=== PATIENT | female | born 1945 | race Caucasian/White ===

== ENCOUNTER → 2017-09-28 09:25 | Outpatient (CLI) | payer MEDICARE, OTHER, SELFPAY ==
[2017-09-28 10:32] LABS: Absolute Neutrophil Count 2.7 X10^3/uL (2.0-7.7); Basophil# 0.02 X10^3/uL; Basophil% 0.4 % (0-1); Differential Indicated SCAN CRITERIA MET; Eosinophil# 0.14 X10^3/uL; Eosinophils% 2.8 % (0-5); Hematocrit 25.8 % (37-47); Hemoglobin 7.3 g/dl (12.0-15.0); Lymphocyte % 35.8 % (19-41); Mean Corp Hgb Conc 28.3 g/gl (32-36); Mean Corpuscular Hgb 17.1 pg (27.0-32.0); Mean Corpuscular Volume 60.6 fL (81-99); Monocyte# 0.37 X10^3/uL; Monocyte% 7.4 % (0-10); Neutrophil % 53.6 % (47-70); POSITIVE COUNT NO; POSITIVE DIFFERENTIAL NO; POSITIVE MORPHOLOGY YES; Platelet Count 308 K/mm3 (150-450); RBC Distribution Width CV 20.2 % (11.6-14.6); RBC Distribution Width SD 44.2 fl (35.1-43.9); Red Blood Count 4.26 M/mm3 (4.2-5.4)
[2017-09-28 10:40] LABS: Creatinine, Urine (random) < 13.00 mg/dL (NO RANGE EST.); Microalbumin,Random Urine 6.2 mg/L (NO RANGE EST.)
[2017-09-28 10:59] LABS: AST(SGOT) 18 U/L (15-37); Alanine Aminotransfer ALT/SGPT 30 U/L (13-56); Albumin, Serum 3.7 g/dL (3.2-5.0); Alkaline Phosphatase 77 U/L (45-117); Anion Gap 7 (5-15); BUN 10 mg/dL (7-18); BUN/Creat Ratio 20.3 RATIO (10-20); Bilirubin, Direct 0.05 mg/dL (0.00-0.30); Calcium,Total 8.8 mg/dL (8.5-10.1); Chloride 105 mmol/L (98-107); Creatinine, Serum 0.49 mg/dL (0.55-1.02); EST Glomerular Filtration Rate 131 mL/min (>60); Est Glom Filt Rate - Afr Amer 158 mL/min (>60); Globulin 3.7 g/dL (2.2-4.2); Glucose 114 mg/dL (74-106); Potassium 3.5 mmol/L (3.5-5.1); Protein, Total 7.4 g/dL (6.4-8.2); Sodium Level 140 mmol/L (136-145)
== END ==
PROVIDERS: Family Provider Family Medicine; PCP Family Medicine; Visit Provider Family Medicine
DX: E11.9 Type 2 diabetes mellitus without complications (principal); R53.83 Other fatigue
CPT/HCPCS: 36415; 80048; 80076; 82043; 82570; 85025

== ENCOUNTER → 2017-09-29 08:20 | Outpatient (CLI) | payer MEDICARE, OTHER, SELFPAY ==
[2017-09-29 11:58] LABS: Absolute Lymphocyte Count 1.91 X10^3/ul (0.83-4.51); Absolute Neutrophil Count 2.8 X10^3/uL (2.0-7.7); Basophil# 0.02 X10^3/uL; Basophil% 0.4 % (0-1); Eosinophil# 0.15 X10^3/uL; Eosinophils% 2.9 % (0-5); Hematocrit 26.2 % (37-47); Hemoglobin 7.4 g/dl (12.0-15.0); Lymphocyte # 1.91 X10^3/ul (4.0); Lymphocyte % 36.6 % (19-41); Mean Corp Hgb Conc 28.2 g/gl (32-36); Mean Corpuscular Hgb 17.1 pg (27.0-32.0); Mean Corpuscular Volume 60.5 fL (81-99); Mean Platelet Vol. 9.3 fl (6.2-12.0); Monocyte# 0.37 X10^3/uL; Monocyte% 7.1 % (0-10); Neutrophil # 2.76 X10^3/uL (2.7-7.7); Neutrophil % 52.8 % (47-70); Platelet Count 317 K/mm3 (150-450); RBC Distribution Width CV 20.1 % (11.6-14.6); RBC Distribution Width SD 43.8 fl (35.1-43.9); Red Blood Count 4.33 M/mm3 (4.2-5.4); White Blood Count 5.2 K/mm3 (4.4-11.0)
[2017-09-29 12:00] LABS: Differential Indicated SCAN CRITERIA MET; POSITIVE COUNT NO; POSITIVE DIFFERENTIAL NO; POSITIVE MORPHOLOGY YES
== END ==
PROVIDERS: Family Provider Family Medicine; PCP Family Medicine; Visit Provider Family Medicine
DX: D64.9 Anemia, unspecified (principal)
CPT/HCPCS: 36415; 85025

== ENCOUNTER → 2017-10-02 08:03 | Outpatient (CLI) | payer MEDICARE, OTHER, SELFPAY ==
[2017-10-02 10:30] LABS: Absolute Lymphocyte Count 1.58 X10^3/ul (0.83-4.51); Basophil# 0.01 X10^3/uL; Basophil% 0.2 % (0-1); Eosinophils% 2.5 % (0-5); Hematocrit 26.5 % (37-47); Hemoglobin 7.5 g/dl (12.0-15.0); Lymphocyte # 1.58 X10^3/ul (4.0); Lymphocyte % 38.7 % (19-41); Mean Corp Hgb Conc 28.3 g/gl (32-36); Mean Corpuscular Hgb 17.2 pg (27.0-32.0); Mean Corpuscular Volume 60.9 fL (81-99); Mean Platelet Vol. 9.3 fl (6.2-12.0); Monocyte# 0.41 X10^3/uL; Neutrophil # 1.98 X10^3/uL (2.7-7.7); Neutrophil % 48.6 % (47-70); Platelet Count 292 K/mm3 (150-450); RBC Distribution Width CV 20.5 % (11.6-14.6); RBC Distribution Width SD 44.6 fl (35.1-43.9); Red Blood Count 4.35 M/mm3 (4.2-5.4); White Blood Count 4.1 K/mm3 (4.4-11.0)
[2017-10-02 10:31] LABS: Differential Indicated SCAN CRITERIA MET; POSITIVE COUNT NO; POSITIVE DIFFERENTIAL NO; POSITIVE MORPHOLOGY YES
[2017-10-02 10:45] LABS: Ferritin 4 ng/mL (8-252); Iron 16 ug/dL (50-170); Iron Binding Capacity,Total 563 ug/dL (250-450)
[2017-10-02 11:06] LABS: Anisocytosis 2+; Hypochromasia 3+; Microcytosis 2+; Ovalocyte RARE; Platelet Estimate ADEQUATE (ADEQ); Schistocytes RARE
== END ==
LOC: MFPLAB 08:04 → LAB 13:52
PROVIDERS: Family Provider Family Medicine; PCP Family Medicine; Visit Provider Family Medicine
DX: D64.9 Anemia, unspecified (principal)
CPT/HCPCS: 36415; 82728; 83540; 83550; 85025; 86850; 86900; 86920; 86922

== ENCOUNTER 2017-10-03 08:43 | Outpatient (CLI) | payer MEDICARE, OTHER, SELFPAY ==
[2017-10-03] VITALS (9 sets, daily range): BP systolic 118–147; BP diastolic 53–80; PULSE 60–82; RESP 16–18; TEMP 36.5–37.4; O2SAT 94–100
[2017-10-03] MEDS: 0.9% NaCl Peripheral Flush Adult/Peds IV ×2 (10:05→13:31)
[2017-10-03] MEDS: Furosemide 20 MG/2 ML VIAL IV (13:35)
[2017-10-03 18:32] LABS: Hematocrit 33.1 % (37-47); Hemoglobin 9.9 g/dl (12.0-15.0)
== END 2017-10-03 18:17 | disposition home or self-care (01) ==
LOC: MEDOUTP 08:44 → PCU 08:45
PROVIDERS: Family Provider Family Medicine; PCP Family Medicine; Visit Provider Family Medicine
DX: D64.9 Anemia, unspecified (principal)
CPT/HCPCS: 36415; 36430; 85014; 85018; 86644; 86850; 86900; 86920; 86922; J7050; P9016; A4216; J1940

== ENCOUNTER → 2017-10-13 13:37 | Outpatient (CLI) | payer MEDICARE, OTHER, SELFPAY ==
--- NOTE | 2017-10-13 13:40 | RAD_ITS ---
STUDY: X-RAY - LEFT HAND REASON FOR EXAM: Female, 72 years old. Numbness. TECHNIQUE: Three view(s) of the hand. COMPARISON: None. FINDINGS: Bones: There is generalized osteopenia. Joints: There are changes of osteoarthrosis involving the radial carpal row, first carpometacarpal joint, metacarpal phalangeal and interphalangeal joints. Soft tissues: The soft tissues are unremarkable. Foreign body: None RAD/Hand Min 3 Views IMPRESSION: Osteopenia with osteoarthritic changes as described. Electronically Signed: Mingo Rao MD at 14:57 EST , Service support ,
--- NOTE | 2017-10-13 13:40 | RAD_ITS ---
STUDY: X-RAY - RIGHT HAND REASON FOR EXAM: Numbness. TECHNIQUE: 3 view(s) of the hand. COMPARISON: None. FINDINGS: Normal radiocarpal articulation. Normal distal radioulnar joint. Normal visualized carpal bones. Normal carpal articulations Normal carpometacarpal articulation of the thumb. Normal second through fifth carpometacarpal joints. Normal metacarpi. Normal metacarpophalangeal joint of the thumb. Normal interphalangeal joint of the thumb. Normal proximal and distal phalanges of the thumb. Normal metacarpophalangeal joints of the second through fifth fingers. Normal proximal and distal interphalangeal joints of the second through fifth fingers. Normal phalanges of the second through fifth fingers. There is a small capsular calcification at the proximal ulnar aspect of the fourth proximal interphalangeal joint and a small capsular calcification at the distal radial aspect of the third metacarpophalangeal joint. There is a small capsular calcification at the palmar ulnar aspect of the first metacarpophalangeal joint. RAD/Hand Min 3 Views IMPRESSION: Small capsular calcifications of the fourth proximal interphalangeal, and first and third metacarpophalangeal joints. Otherwise, unremarkable x-ray examination of the right hand. Electronically Signed: Sriram Funes MD at 14:06 EST Tel , Service support ,
== END ==
PROVIDERS: Family Provider Family Medicine; PCP Family Medicine; Visit Provider Orthopaedic Surgery
DX: M79.641 Pain in right hand (principal); M79.642 Pain in left hand
CPT/HCPCS: 73130

== ENCOUNTER → 2017-10-19 11:25 | Outpatient (CLI) | payer MEDICARE, OTHER, SELFPAY ==
[2017-10-19 12:31] LABS: Absolute Lymphocyte Count 1.82 X10^3/ul (0.83-4.51); Absolute Neutrophil Count 3.7 X10^3/uL (2.0-7.7); Basophil# 0.01 X10^3/uL; Basophil% 0.2 % (0-1); Eosinophil# 0.09 X10^3/uL; Eosinophils% 1.5 % (0-5); Hematocrit 37.7 % (37-47); Hemoglobin 11.3 g/dl (12.0-15.0); Lymphocyte # 1.82 X10^3/ul (4.0); Lymphocyte % 30.2 % (19-41); Mean Corpuscular Hgb 20.9 pg (27.0-32.0); Mean Corpuscular Volume 69.8 fL (81-99); Mean Platelet Vol. 9.5 fl (6.2-12.0); Monocyte# 0.37 X10^3/uL; Monocyte% 6.1 % (0-10); Neutrophil # 3.74 X10^3/uL (2.7-7.7); Platelet Count 265 K/mm3 (150-450)
[2017-10-19 12:37] LABS: POSITIVE COUNT NO; POSITIVE DIFFERENTIAL NO; POSITIVE MORPHOLOGY YES
[2017-10-19 12:38] LABS: Differential Indicated SCAN CRITERIA MET
[2017-10-19 12:50] LABS: Anisocytosis 2+; Microcytosis 2+; Platelet Estimate ADEQUATE (ADEQ)
[2017-10-19 12:51] LABS: Hypochromasia 1+; Target Cells 2+
[2017-10-19 12:52] LABS: Ovalocyte RARE
== END ==
PROVIDERS: Family Provider Family Medicine; PCP Family Medicine; Visit Provider Family Medicine
DX: D64.9 Anemia, unspecified (principal)
CPT/HCPCS: 36415; 85025

== ENCOUNTER 2017-11-10 06:35 | Day surgery (SDC) | payer MEDICARE, OTHER, SELFPAY ==
[2017-11-10] VITALS (7 sets, daily range): BP systolic 91–130; BP diastolic 57–73; PULSE 54–69; RESP 16; TEMP 36.1–36.7; O2SAT 100; BMI 31.0
[2017-11-10 07:05] LABS: Bedside Glucose 113 mg/dL (70-110)
--- NOTE | 2017-11-10 07:57 | EGD_PTH ---
PATIENT: KARIE PLASCENCIA LOC: EN U#:[id number] AGE/SX: 72/F ROOM: RE11/10/[address]: Dr. Von Velez MD : 1945 BED: DIS: 11/10/2017 SPEC #: [id number] RECD: 11/10/17 13:30 STATUS: OSMAN DEANDRE #: [id number] RODRÍGUEZ: 11/10/17 07:[address]: Von Velez DEPT: SURGICAL PATHOLOGY RECD BY: Eric Lazaro ENTERED: 11/10/17 13:48 SP TYPE: EGD BIOPSY OT DR: Dr. 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 No evidence of dysplasia. Junctional tissue with mild chronic inflammation. AM:angelica 11/11/17 COMMENT Alcian blue/PAS stain with matched control supports the above diagnosis. MICROSCOPIC DESCRIPTION Slides are reviewed. GROSS DESCRIPTION Received in fixative is one container labeled with the patient's name and designated GE junction. The specimen consists of two irregular fragments of light hong soft tissue that in aggregate measure 0.8 x 0.3 x 0.1 cm. The specimen is totally submitted in one cassette. / SJ:angelica 11/10/17 TC:3 CPT: 01809, 26145
--- NOTE | 2017-11-10 08:32 | PCM.OPRPT ---
Problem List (1) Anemia Status: Acute Qualifiers: Anemia type: iron deficiency Iron deficiency anemia type: unspecified iron deficiency Qualified Code(s): D50.9 - Iron deficiency anemia, unspecified Report of Operation Date of Procedure: 11/10/17 Pre-Operative Diagnosis: Iron deficiency anemia Post-Operative Diagnosis: 1. Normal EGD. 2. Normal colonoscopy Surgery/Procedure Performed:: 1. EGD with biopsy. 2. Colonoscopy Specimen's removed: 1. GE junction biopsy Description of Procedure: The major risks and benefits associated with the procedure were explained to the patient in detail. The patient verbalized understanding and agreement with the same. The patient was then placed in the left lateral decubitus position. IV sedation was started by anesthesia. The endoscope was then advanced under direct visualization over the tongue, into the esophagus. The GE junction was reached and distal to the GE junction her anastomosis from her gastric bypass was identified. Both lumens were intubated and appeared normal. The anastomosis appeared normal. The scope was withdrawn to the GE junction. There was some irregularity to the GE junction so it was biopsied with cold forceps. Hemostasis was good. Careful examination of the remainder of the esophagus was normal. The scope was then withdrawn from the patient. The patient was then turned for the colonoscopy portion of the procedure. A digital rectal exam was performed. This examination was within normal limits. A well-lubricated colonoscope was then inserted into the rectum and advanced under direct visualization to the level of the cecum. The bowel prep was good. The cecum was identified by both visual and anatomic landmarks. A photograph was taken of the end of the cecum. The scope was then fully withdrawn while examining the color, texture, anatomy and integrity of the mucosa from the cecum to the anal canal. The findings were consistent with normal colonic mucosa. Over 6 minutes were taken to examine the colonic mucosa. Upon reaching the rectum the scope was retroflexed to examine the distal rectal vault. The scope was then straightened and was completely retrieved upon exiting the anal canal and the procedure was terminated. The patient was then transferred to the recovery room in stable condition. Recommendations for follow up: 10 years if patient in good health
== END 2017-11-10 09:49 | disposition home or self-care (01) ==
LOC: EN 06:36 → ACINP 06:39
PROVIDERS: Family Provider Family Medicine; PCP Family Medicine; Visit Provider Surgery
PROC: 0DJD8ZZ Inspection of Lower Intestinal Tract, Via Natural or Artificial Opening Endoscopic (ICD-10-PCS; CPT 45378; principal; 2017-11-10 07:55)
DX: D50.9 Iron deficiency anemia, unspecified (principal); Z98.84 Bariatric surgery status; E78.5 Hyperlipidemia, unspecified; E11.9 Type 2 diabetes mellitus without complications; K22.70 Barrett's esophagus without dysplasia; Z79.899 Other long term (current) drug therapy; Z79.84 Long term (current) use of oral hypoglycemic drugs; E07.9 Disorder of thyroid, unspecified
CPT/HCPCS: 43239; 45378; 82962; 88305; 88313; J7120

== ENCOUNTER → 2018-03-25 07:52 | Outpatient (CLI) | payer MEDICARE, OTHER, SELFPAY ==
[2018-03-25 10:18] LABS: Hematocrit 39.2 % (37-47); Hemoglobin 12.9 g/dl (12.0-15.0); Mean Corp Hgb Conc 32.9 g/gl (32-36); Mean Corpuscular Volume 88.1 fL (81-99); Mean Platelet Vol. 10.1 fl (6.2-12.0); Platelet Count 202 K/mm3 (150-450); RBC Distribution Width CV 13.7 % (11.6-14.6); RBC Distribution Width SD 43.8 fl (35.1-43.9); Red Blood Count 4.45 M/mm3 (4.2-5.4); White Blood Count 4.4 K/mm3 (4.4-11.0)
[2018-03-25 10:25] LABS: Scan Indicated on CBC? Y/N NO
[2018-03-25 10:27] LABS: Hemoglobin A1c 6.2 % (4.2-6.3)
[2018-03-25 10:32] LABS: Microalbumin:Creatinine Ratio 16.3 mg/g CRE (<30 mg/g CRE)
[2018-03-25 10:38] LABS: AST(SGOT) 19 U/L (15-37); Alanine Aminotransfer ALT/SGPT 29 U/L (13-56); Albumin, Serum 3.6 g/dL (3.2-5.0); Alkaline Phosphatase 66 U/L (45-117); Anion Gap 9 (5-15); BUN 11 mg/dL (7-18); BUN/Creat Ratio 18.3 RATIO (10-20); Calcium,Total 8.7 mg/dL (8.5-10.1); Chloride 106 mmol/L (98-107); Cholesterol 254 mg/dL (200); EST Glomerular Filtration Rate 104 mL/min (>60); Est Glom Filt Rate - Afr Amer 126 mL/min (>60); Globulin 3.6 g/dL (2.2-4.2); Glucose 131 mg/dL (74-106); High Density Lipoprotein 70 mg/dL; Potassium 4.1 mmol/L (3.5-5.1); Protein, Total 7.2 g/dL (6.4-8.2); Sodium Level 142 mmol/L (136-145); Thyroid Stim Hormone (TSH) 2.41 uIU/mL (0.358-3.74); Triglycerides 121 mg/dL; Very Low Density Lipoprotein 24 mg/dL (5-40)
== END ==
PROVIDERS: Family Provider Family Medicine; PCP Family Medicine; Visit Provider Family Medicine
DX: D64.9 Anemia, unspecified (principal); E11.9 Type 2 diabetes mellitus without complications; E78.5 Hyperlipidemia, unspecified; E03.9 Hypothyroidism, unspecified
CPT/HCPCS: 36415; 80053; 80061; 82043; 82570; 83036; 84443; 85027

== ENCOUNTER 2018-11-30 07:27 | Day surgery (SDC) | payer MEDICARE, OTHER, SELFPAY ==
[2017-11-10 06:51] VITALS: BMI 31.0
[2018-11-30 08:14] VITALS: BP 124/78; PULSE 65; RESP 16; TEMP 36.8; O2SAT 98; BMI 31.1
[2018-11-30 08:31] LABS: Bedside Glucose 123 mg/dL (70-110)
--- NOTE | 2018-11-30 09:00 | EGD_PTH ---
PATIENT: KARIE PLASCENCIA LOC: EN U#:[id number] AGE/SX: 73/F ROOM: RE11/30/[address]: Dr. Von Velez MD : 1945 BED: DIS: 11/30/2018 SPEC #: [id number] RECD: 11/30/18 11:37 STATUS: OSMAN REModesta #: [id number] RODRÍGUEZ: 11/30/18 09:[address]: Von Velez DEPT: SURGICAL PATHOLOGY RECD BY: Eric Lazaro ENTERED: 11/30/18 12:34 SP TYPE: EGD BIOPSY OT DR: Dr. Cachorro Whitney MD Tissues: Gastric mucous membrane Procedures: Special Stain Group II Surgery Specimen Level IV Alcian Blue/PAS (control) HEADER OPERATION: EGD (MAC) PRE-OP DIAGNOSIS: Diehl's esophagus without dysplasia TISSUE SUBMITTED: GE junction biopsy MICROSCOPIC DIAGNOSIS GE junction, biopsy: Fragments of gastroesophageal mucosa with chronic inflammation. Intestinal metaplasia (goblet cell metaplasia) is not identified. See comment. SURJIT:angelica 12/01/18 COMMENT Alcian blue/PAS stain with matched control is used in the evaluation of the specimen. MICROSCOPIC DESCRIPTION Slides are reviewed. GROSS DESCRIPTION Received in fixative is one container labeled with the patient's name and designated GE junction biopsy. The specimen consists of multiple irregular fragments of light hong soft tissue that in aggregate measure 0.5 x 0.4 x 0.1 cm. The specimen is totally submitted in one cassette. / SURJIT:angelica 11/30/18 TC:3 CPT: 50390, 18358
--- NOTE | 2018-11-30 09:17 | OP.ENDO_ITS ---
11/30/2018 Cachorro Whitney MD [address] [id number] Re : Upper GI endoscopy procedure for Julia Rivera Dear Dr. Whitney This procedure was performed on Friday, November 30, 2018. My impressions and recommendations are as follows: Impressions : - Normal esophagus. - No specimens collected. Recommendations : - Resume previous diet. - Discharge patient to home. - Repeat upper endoscopy in 3 years for surveillance. - Continue present medications. My findings are described in the full procedure note, which is enclosed. If I can be of further assistance, please feel free to contact me at Doctor phone number(s): , Work: . Sincerely, Von Velez MD 11/30/2018 9:17:18 AM This report has been signed electronically.
[2018-11-30 09:18] VITALS: BP 112/65; BP 124/78; PULSE 63; RESP 16; TEMP 36.2; O2SAT 96
[2018-11-30 09:20] VITALS: BP 112/84; BP 124/78; PULSE 58; RESP 14; O2SAT 96
[2018-11-30 09:26] VITALS: BP 109/70; BP 124/78; PULSE 67; RESP 14; O2SAT 98
[2018-11-30 09:39] VITALS: BP 116/65; BP 124/78; PULSE 53; RESP 18; TEMP 36.1; O2SAT 97
[2018-11-30 10:00] VITALS: BP 124/78
== END 2018-11-30 10:11 | disposition home or self-care (01) ==
LOC: EN 07:29 → AC 07:30
PROVIDERS: Family Provider Family Medicine; PCP Family Medicine; Referring Provider Surgery; Visit Provider Surgery
PROC: 0DJ08ZZ Inspection of Upper Intestinal Tract, Via Natural or Artificial Opening Endoscopic (ICD-10-PCS; CPT 43235; principal; 2018-11-30 08:55)
DX: K22.70 Barrett's esophagus without dysplasia (principal); E07.9 Disorder of thyroid, unspecified; E11.9 Type 2 diabetes mellitus without complications; E78.5 Hyperlipidemia, unspecified; Z79.899 Other long term (current) drug therapy; Z79.84 Long term (current) use of oral hypoglycemic drugs; D64.9 Anemia, unspecified; Z98.84 Bariatric surgery status
CPT/HCPCS: 43239; 82962; 88305; 88313; J7120

== ENCOUNTER → 2018-12-15 | Outpatient (CLI) | payer MEDICARE, OTHER, SELFPAY ==
[2018-11-30 08:14] VITALS: BMI 31.1
--- NOTE | 2018-12-15 13:52 | NEURO ---
NCS and/or EMG Patient Report Ordering Doctor: Last Mcdonald DATE OF SERVICE: 12/15/18 Julia Rivera presents for elective diagnostic testing of the right lower limb. She reports numbness and weakness in the right foot since August. She denies any injury. Electrodiagnostic findings: Right peroneal motor nerve demonstrates normal distal latency with reduced amplitude and reduced conduction velocity. No drop in conduction is noted across the fibular head. Normal tibial motor response. F waves are within normal limits. H reflex borderline prolonged bilaterally. Sensory responses are normal. Needle EMG testing shows no evidence of denervation with normal motor unit action potentials. Electrodiagnostic impression: This is an abnormal study in the right lower limb. 1. 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 There is no singificant drop in conduction across the fibular head. The patient may benefit from a right ankle-foot orthosis. 2. There is no electrodiagnostic evidence for lumbosacral radiculopathy. If there are any further questions, please do not hesitate to contact me.
== END | disposition home or self-care (01) ==
LOC: PSN 12:09
PROVIDERS: Family Provider Family Medicine; PCP Family Medicine; Referring Provider Nurse Practitioner Family; Visit Provider Nurse Practitioner Family
DX: M21.371 Foot drop, right foot (principal); R20.0 Anesthesia of skin
CPT/HCPCS: 95886; 95911

== ENCOUNTER → 2018-12-30 | Outpatient (CLI) | payer MEDICARE, OTHER, SELFPAY ==
[2018-11-30 08:14] VITALS: BMI 31.1
--- NOTE | 2018-12-30 14:01 | BI_ITS ---
MAMMOGRAPHY - BILATERAL SCREENING REASON FOR EXAM: Female, 73 years old. Routine annual screening examination. PERTINENT HISTORY: Non-contributory. TECHNIQUE: Digital bilateral breast jad (3D mammographic acquisition) in the CC and MLO projections. 2-D mediolateral oblique (MLO) and craniocaudad (CC) views of both breasts were obtained. CAD: Full Field Digital Mammography with Computer Added Detection was performed. COMPARISON: Comparison is made with prior study dated July 29, 2016 and May 15, 2015. FINDINGS: Breast Composition: There are scattered areas of fibroglandular density. There are no dominant masses or suspicious calcifications. Stable small bilateral axillary lymph nodes. No other significant abnormalities are identified. There has been no significant change since the prior study. BI/SCREENING MAMM (CAD), BILAT IMPRESSION: Stable bilateral screening mammogram. Yearly follow-up mammogram recommended. (A) ASSESSMENT CATEGORY: BIRADS Category 2: Benign. A letter regarding these results will be sent to the patient by the facility within 30 days. Approximately 10% of breast cancers are not detected by mammography. A normal mammogram should not delay biopsy of a clinically suspicious abnormality. [id number] Electronically Signed: Pillo Diaz, at 15:35 EDT , Service support ,
--- NOTE | 2018-12-30 14:23 | BD_ITS ---
STUDY: DUAL ENERGY X-RAY ABSORPTIOMETRY / DXA REASON FOR EXAM: Female, 73 years old. The patient is postmenopausal. Loss of height. TECHNIQUE: Bone Mineral Density (BMD) measurements of lumbar spine and bilateral hips were obtained. COMPARISON: Comparison is made with prior study dated July 29, 2016. FINDINGS: Lumbar Spine (L1-L4): g/cm2 (1.250) / T-score (0.4) / Z-score (2.2) Findings are suggestive of normal bone density with a low fracture risk. Left Femur Total: g/cm2 (1.015) / T-score (0.1) / Z-score (1.8) Left Femoral Neck: g/cm2 (0.822) / T-score (-1.6) / Z-score (0.4) Right Femur Total: g/cm2 (1.030) / T-score (0.2) / Z-score (1.9) Right Femoral Neck: g/cm2 (0.837) / T-score (-1.4) / Z-score (0.5) The T-Scores on the most recent prior examination were: Lumbar Spine (L1-L4): There has been improvement of bone density since the previous examination. Left Femur Total: which represents a worsening of 2%. Right Femur Total: which represents a worsening of 2.2%. BD/Dexa Bone Density Study IMPRESSION: The patient is considered osteopenic as outlined below according to World Paramjit Organization (WHO) criteria with a moderate fracture risk. There has been worsening of bone density since the previous examination. Reference Information: The T-score is the number of standard deviations above or below the standard which is normal for young adults at their peak bone mineral density. The World Health Organization (WHO) interprets the T-scores as follows: Above -1 Normal bone density Between -1 and -2.5 Osteopenia Equal to / or below -2.5 Osteoporosis As a practical clinical guideline, osteopenia may be graded as follows: Mild -1 through -1.5 Moderate -1.6 through -2.0 Severe -2.1 through -2.4 The Z-score is the number of standard deviations above or below age-matched controls. A Z-score of less than -1.5 would be considered abnormal. References: 1. NIH Osteoporosis and Related Bone Diseases http://www.osteo.org 2. International Society for Clinical Densitometry http://www.iscd.org 3. National Osteoporosis Foundation http://www.nof.org Electronically Signed: Pillo Diaz, at 14:54 EDT , Service support ,
== END | disposition home or self-care (01) ==
LOC: OPBD 13:57
PROVIDERS: Family Provider Family Medicine; PCP Family Medicine; Referring Provider Obstetrics & Gynecology; Visit Provider Obstetrics & Gynecology
DX: Z12.31 Encounter for screening mammogram for malignant neoplasm of breast (principal); Z13.820 Encounter for screening for osteoporosis; Z78.0 Asymptomatic menopausal state
CPT/HCPCS: 77063; 77067; 77080

== ENCOUNTER → 2019-01-04 | Outpatient (CLI) | payer MEDICARE, OTHER, SELFPAY ==
[2019-01-04 10:42] LABS: Hemoglobin A1c 6.8 % (4.2-6.3)
[2019-01-04 11:11] LABS: Anion Gap 6 (5-15); BUN 9 mg/dL (7-18); BUN/Creat Ratio 14.2 RATIO (10-20); Chloride 105 mmol/L (98-107); Cholesterol 217 mg/dL (200); Creatinine, Serum 0.63 mg/dL (0.55-1.02); EST Glomerular Filtration Rate 97 mL/min (>60); Est Glom Filt Rate - Afr Amer 118 mL/min (>60); Glucose 119 mg/dL (74-106); High Density Lipoprotein 86 mg/dL; Potassium 3.8 mmol/L (3.5-5.1); Sodium Level 138 mmol/L (136-145); Thyroid Stim Hormone (TSH) 2.22 uIU/mL (0.358-3.74); Triglycerides 110 mg/dL; Very Low Density Lipoprotein 22 mg/dL (5-40)
== END | disposition home or self-care (01) ==
LOC: MFPLAB 08:33
PROVIDERS: Family Provider Family Medicine; PCP Family Medicine; Visit Provider Family Medicine
DX: E11.9 Type 2 diabetes mellitus without complications (principal); E03.9 Hypothyroidism, unspecified; E78.5 Hyperlipidemia, unspecified
CPT/HCPCS: 36415; 80048; 80061; 83036; 84443

== ENCOUNTER 2019-02-16 08:36 | Day surgery (SDC) | payer MEDICARE, OTHER, SELFPAY ==
[2019-01-20 08:59] VITALS: BMI 31.1
--- NOTE | 2019-01-20 09:30 | HP_ITS ---
I have re-examined the patient. There are no clinical changes since date of exam. Intake Vital Signs 01/20/19 Body Mass Index (BMI) 31.1 Intake Visit Reasons: BILATERAL HANDS Allergies No Known Allergies Allergy (Verified 11/25/18 09:40) Medications calcium carbonate 500 mg calcium (1,250 mg) tablet 500 mg PO DAILY tab 10/13/17 [History Confirmed 01/20/19] folic acid 0.8 mg capsule 800 mcg PO QDAY 10/13/17 [History Confirmed 01/20/19] glimepiride 1 mg tablet 1 mg PO QAM 10/13/17 [History Confirmed 01/20/19] levothyroxine 75 mcg capsule 75 mcg PO DAILY 10/13/17 [History Confirmed 01/20/19] metformin 1,000 mg tablet 1,000 mg PO BID 10/13/17 [History Confirmed 01/20/19] multivitamin tablet 1 tab PO QAM 10/13/17 [History Confirmed 01/20/19] magnesium oxide 400 mg (241.3 mg magnesium) tablet 400 mg PO DAILY tab 10/16/17 [History Confirmed 01/20/19] rosuvastatin 5 mg tablet 5 mg PO DAILY 01/20/19 [History Confirmed 01/20/19] PFSH Medical History Anemia (Acute) Carpal tunnel syndrome (Acute) Thyroid disease (Acute) Fatigue (Acute) Dysuria (Acute) Hyperlipemia (Acute) Diabetes (Acute) Foot drop, right (Acute) Surgical History H/O gastric bypass (Acute) Family History Mother Uterine cancer Social History Smoking Status: Never smoker second hand exposure: No alcohol intake: never substance use type: does not use caffeine: No what type of physical activity do you participate in: walking frequency: 3-4 times per week seatbelt use: always HPI BILATERAL HANDS: Surgical H&P: Yes Details: Parts of this documentation were recorded by a scribe, this documentation accurately reflects the service provided and the decisions made by me, Qian Genao, 01/20/19 0340. KARIE PLASCENCIA is a 73 year old F here today for BL wrist has hx of carpal tunnel syndrome. Patient has had about 4 injections of her BL wrists with the last injection being 11/25/18. Patient states the injection are usually effective for about 3-5 months but the last injection only last a month and her pain is back along with numbness and tingling. Patient states the burning is worse at night. Has tried night bracing in the past which was not effective. Patient states her right hand is the worst. Would like to discuss her surgical options this day. She is seeing a neurologist for drop foot later today. ROS Const Reports system reviewed and no additional complaints, except as docu Eyes Reports system reviewed and no additional complaints, except as docu ENT Reports system reviewed and no additional complaints, except as docu Card Reports system reviewed and no additional complaints, except as docu Resp Reports system reviewed and no additional complaints, except as docu GI Reports system reviewed and no additional complaints, except as docu Musc Reports as per HPI Skin/Breast Reports system reviewed and no additional complaints, except as docu Neuro Yes system reviewed and no additional complaints, except as docu Psych Reports system reviewed and no additional complaints, except as docu Endo Reports system reviewed and no additional complaints, except as docu Jasson/Lymph Reports system reviewed and no additional complaints, except as docu Aller/Immun Reports system reviewed and no additional complaints, except as docu Ortho Exam Right Wrist/Hand Right Wrist: Yes Durken's Test Motor: EPL: 5, FDP-2: 4, 1st Dorsal Interosseous: 5, APB: 4 Sensation: Radial: I, Ulnar: I, Median: D Left Wrist/Hand Left Wrist: Yes Durken's Test WRIST: bilateral thenar atrophy Assessment & Plan Problems 1. Bilateral carpal tunnel syndrome G56.03 Plan Explained having less relief with injections but diagnostically they are confirming the carpal tunnel syndrome. Explained that the goal of surgery is to stop the progression. Risks, benefits and alternatives of surgery reviewed including but no limited to risk of incisional hypersensitivity, pillar pain and continued symptomology, nerve or artery damage, finger and wrist stiffness. Post op restrictions reviewed. Follow up post op or sooner if pain, swelling, numbness or associated symptoms, or concerns develop. All questions answered. Patient in agreement of plan. Coding Level of Care Code Off vis,est,level 4 Diagnoses Bilateral carpal tunnel syndrome G56.03 01/20/19 0930 <Electronically signed by Qian recinos DO> Date _ Qian Genao DO
[2019-02-16 08:57] VITALS: BP 125/68; PULSE 72; RESP 16; TEMP 36.7; O2SAT 99; BMI 31.2
[2019-02-16 09:21] LABS: Bedside Glucose 137 mg/dL (70-110)
[2019-02-16] MEDS: Cefazolin 2 GM in 0.9% Normal Saline 100 ML IV (12:35)
[2019-02-16] MEDS: Triamcinolone Acetonide 40 MG/ML Vial (12:36)
[2019-02-16] MEDS: Ropivacaine 0.5% 30 ML Vial (12:36)
[2019-02-16] MEDS: Mupirocin Ointment 22gm Tube 1 APPLIC (12:59)
--- NOTE | 2019-02-16 13:18 | DCINST_ITS ---
Discharge Diet: No Restrictions - keep dressing intact, follow up in 2 weeks and will remove dressing and stitches at that time, call with concerns, use hand as tolerated Discharge Activity: May Not Drive May shower in (days): 1 Ice area for (Minutes): 20 - Every hour while awake. Weight Bearing Status: Weight bearing as tolerated Keep extremity elevated above heart level: Operative Extremity Call your doctor if your incision/area has: Continuous Slow Oozing, Sudden Increased Bleeding, Increased Pain/ Swelling, Increased Redness, Foul Smelling Discharge Call your doctor if you observe: Fever of 101 or Higher, Coldness, Increased Pain, Numbness or Tingling, Change in Color, Calf discomfort Allergies/Adverse Reactions: Allergies No Known Allergies Allergy (Verified 02/09/19 09:45) Medications to take at Discharge calcium carbonate 500 mg calcium (1,250 mg) tablet 500 mg PO DAILY tab 10/13/17 folic acid 0.8 mg capsule 800 mcg PO QDAY 10/13/17 glimepiride 1 mg tablet 0.5 mg PO BID 10/13/17 levothyroxine 75 mcg capsule 75 mcg PO DAILY 10/13/17 metformin 1,000 mg tablet 1,000 mg PO BID 10/13/17 multivitamin tablet 1 tab PO QAM 10/13/17 magnesium oxide 400 mg (241.3 mg magnesium) tablet 400 mg PO DAILY tab 10/16/17 rosuvastatin 5 mg tablet 5 mg PO QHS 01/20/19 Primary Care Physician: Cachorro Whitney MD [Primary Care Provider] - Test Results: Test results from this visit will be discussed in further detail at your follow- up appointment, if applicable. Please Follow Up With: Qian Genao, DO - [phone]
--- NOTE | 2019-02-16 13:19 | PCM.OPRPT ---
Report of Operation Date of Procedure: 02/16/19 Pre-Operative Diagnosis: bilateral carpal tunnel syndrome Post-Operative Diagnosis: same Surgery/Procedure Performed:: right carpal tunnel release, left carpal tunnel injection Type of Anesthesia:: Irving Calloway Anesthesiologist: Adam Peter Estimated Blood Loss (mL): none Fluids Replaced: 300cc lr Description of Procedure: Preoperative note Patient is a 73 year old patient with nerve conduction study confirming carpal tunnel syndrome. Patient failed conservative treatment for her carpal tunnel elected proceed with right carpal tunnel release. Risks benefits and alternatives surgery discussed with patient. Risks including but not limited to blood loss, blood clot, infection, neurovascular injury, failure procedure, loss of life and loss of limb. Patient is aware like proceed with right carpal tunnel release. Operative note Patient seen and examined preoperative holding area. right hand was marked. History and physical and consent reviewed. Patient was brought to the operating room placed supine on the operating table. Sign in, anesthesia, antibiotics were administered. right upper extremity was prepped and draped after Irving block was initiated. All bony prominences well-padded SCDs placed on bilateral lower extremities. We marked out our incisions for our carpal tunnel release at the intersection of Shashank's line in the fourth ray flexed. We extended about a centimeter and a half. Timeout was performed. We then checked ensure that the Irving block was working with pickups which it was not so we performed a local block of 10cc 1% lidocaine. We then used a 15 blade to make a skin incision. We then dissected down tenotomy syllable of the transverse carpal ligament. We then used a new 15 blade cut through the transverse carpal ligament down to the level of the median nerve. We then further released the median nerve the combination of the 15 blade and tenotomies. The nerve was grayish in color and adherent to the transverse carpal ligament volarly. We released the transverse carpal ligament distally to the fat pad and then proximally under standard technique. We then palpated to ensure that we released all of the transverse carpal ligament which we did. We irrigated the incision with copious amounts of sterile saline. All bleeders were coagulated. The incision was closed with interrupted 4-0 nylon stitches. Tourniquet was deflated for total working time of 15 minutes. We then injected the left carpal tunnel with 1 cc of ropivacaine and 1/2 cc Kenalog. Sterile conditions. Patient tired procedure well no comp occasions. patient tolerated procedure well there were no complications. Patient transferred to recovery room in stable condition. Postoperative note Hospital pharmacy has prescription Leave dressing clean dry and intact Follow-up in 2 weeks Call with concerns This note was generated with [employer]) dictation software. It may contain incorrect words, spelling, and punctuation that were not noted in checking the note before signing
[2019-02-16 13:26] VITALS: BP 102/75; BP 125/68; PULSE 80; RESP 16; TEMP 36.7; O2SAT 99
[2019-02-16 13:30] VITALS: BP 125/68; BP 125/81; PULSE 79; RESP 16; O2SAT 99
[2019-02-16 13:35] VITALS: BP 120/72; BP 125/68; PULSE 81; RESP 16; O2SAT 100
[2019-02-16 13:40] VITALS: BP 115/72; BP 125/68; PULSE 74; RESP 16; TEMP 36.2; O2SAT 100
[2019-02-16 14:04] VITALS: BP 125/68
--- NOTE | 2019-02-22 17:34 | PCM.HP.BLA ---
History and Physical Date of Admission: 02/16/19 [facility] Medical Records Department [address] [place] [address] History and Physical 01/20/1931 MR#: [id number] Acct: [id number] Name: KARIE PLASCENCIA Rep #: [id number] : 1945 73 From: Qian Genao DO PCP: Cachorro Whitney MD Status: [facility] Location: [address] [address] I have re-examined the patient. There are no clinical changes since date of exam. Intake Vital Signs 01/20/19 Body Mass Index (BMI) 31.1 Intake Visit Reasons: BILATERAL HANDS Allergies No Known Allergies Allergy (Verified 11/25/18 09:40) Medications calcium carbonate 500 mg calcium (1,250 mg) tablet 500 mg PO DAILY tab 10/13/17 [History Confirmed 01/20/19] folic acid 0.8 mg capsule 800 mcg PO QDAY 10/13/17 [History Confirmed 01/20/19] glimepiride 1 mg tablet 1 mg PO QAM 10/13/17 [History Confirmed 01/20/19] levothyroxine 75 mcg capsule 75 mcg PO DAILY 10/13/17 [History Confirmed 01/20/19] metformin 1,000 mg tablet 1,000 mg PO BID 10/13/17 [History Confirmed 01/20/19] multivitamin tablet 1 tab PO QAM 10/13/17 [History Confirmed 01/20/19] magnesium oxide 400 mg (241.3 mg magnesium) tablet 400 mg PO DAILY tab 10/16/17 [History Confirmed 01/20/19] rosuvastatin 5 mg tablet 5 mg PO DAILY 01/20/19 [History Confirmed 01/20/19] PFSH Medical History Anemia (Acute) Carpal tunnel syndrome (Acute) Thyroid disease (Acute) Fatigue (Acute) Dysuria (Acute) Hyperlipemia (Acute) Diabetes (Acute) 1
== END 2019-02-16 14:08 | disposition home or self-care (01) ==
LOC: SDC 08:36 → AC 08:37
PROVIDERS: Family Provider Family Medicine; PCP Family Medicine; Referring Provider Orthopaedic Surgery; Visit Provider Orthopaedic Surgery
PROC: (CPT 64721; principal; 2019-02-16 10:15)
DX: G56.03 Carpal tunnel syndrome, bilateral upper limbs (principal); Z79.84 Long term (current) use of oral hypoglycemic drugs; E78.5 Hyperlipidemia, unspecified; E07.9 Disorder of thyroid, unspecified; E11.9 Type 2 diabetes mellitus without complications; Z79.899 Other long term (current) drug therapy; M21.371 Foot drop, right foot
CPT/HCPCS: 20526; 64721; 82962; J7120; J2405

== ENCOUNTER 2019-03-08 09:45 | Outpatient (RCR) | payer MEDICARE, OTHER, SELFPAY ==
[2019-01-20 08:59] VITALS: BMI 31.1
[2019-02-28 09:55] VITALS: BMI 31.2
--- NOTE | 2019-03-08 10:54 | HP.PTEVAL_ITS ---
Patient's Visit Information KARIE PLASCENCIA is a 73 year old F referred to Physical Therapy by Cachorro Whitney MD with a diagnosis of Right Foot Drop. Date of Evaluation: 03/08/19 Physical Therapist: Ann Oneill DPT - Visit Plan Plan: Hold- will establish POC and goals after patient meets with Manager Marketing t omorrow and decides on Orthosis - Subjective Findings: Has developed foot drop on the right side- was placing more weight on the left and has increased the pain in her back. She is now working towards putting weight on both legs and the pain has gone away. Foot drop started in - insidous onset. Has been to neurologist- goes to the foot doctor tomorrow and is on the waiting list for the nerve MD at [facility]. Has had a nerve conduction test- which showed that her problem is in the ankle. Has numbness in the big toe. She is now wearing a sleeve on the big toe and tries to wear her shoes at all times. Balance is better when she wears her shoes. Has had a fall getting out of the bathtub but now she has figured out how to get in/out and is putting a rail in. Sees Dr. Jin tomorrow. No pain is associated with the foot drop. Has no problems standing still just when she is moving. Has not notived loss of balance in a particular direction. PMHx: DM Meds: metformin, glumide. Was working out at [place] but its been awhile since she has been here. She is vey active at home. - Objective Posture: good throughout session sitting and standing. Gait: foot drop on the right- compensates with increased hip flexion. Stairs: asc/desc 8 recip with 1 HR- with ascent pt compensates clearance with increased hip flexion. Desc good control. Balance: SLS:10 sec then LOB, Tandem walking: x5 steps without LOB, gait with head turns: stays within boundaries. ROM: WFL in all motions except right DF: passive: WFL however unable to perform active ROM. Strength: Hip: 5/5, Knee: 5/5, Ankle: 5/5 except DF: no initiation of movement observed or palpated. Palpation: not tender - Rehabilitation Potential Physical Therapy Diagnosis: Patient presents with hypomobility- she has insidious onset of foot drop on the right. She has good strength in bilateral LE with the exception of the right DF's. Rehabilitation Potential: Fair - Anticipated Interventions Thank you for the opportunity to evaluate your patient. For Medicare and Medicare HMO plans, please review the plan of care and approve it. It will need to be FAXED BACK to us at [phone] for Medicare purposes. For Medicare only, by signing this I certify the plan of care. Please let me know if there are questions or concerns regarding this plan of care. Physician Signature: Date:
== END 2019-03-08 19:00 | disposition home or self-care (01) ==
LOC: PT 09:45
PROVIDERS: Family Provider Family Medicine; PCP Family Medicine; Referring Provider Family Medicine; Visit Provider Family Medicine
DX: M21.371 Foot drop, right foot (principal)
CPT/HCPCS: 97161

== ENCOUNTER → 2019-09-20 12:59 | Outpatient (CLI) | payer MEDICARE, OTHER, SELFPAY ==
[2019-09-20 12:47] VITALS: BMI 31.2
--- NOTE | 2019-09-20 13:01 | RAD_ITS ---
STUDY: X-RAY - LEFT WRIST REASON FOR EXAM: Wrist pain, carpal tunnel syndrome. TECHNIQUE: 3 view(s) of the wrist were obtained. COMPARISON: Radiographs of the left hand 10/13/2017. FINDINGS: There is osteopenia. Normal visualized distal radius and ulna. Normal radiocarpal articulation. Normal distal radioulnar articulation. Normal carpal bones. Normal carpal articulations. Normal carpometacarpal articulation of the thumb. Normal second through fifth carpometacarpal articulations. Normal visualized metacarpal bones. There is vascular calcification. RAD/Wrist min 3 Views IMPRESSION: Osteopenia and vascular calcification. Otherwise, unremarkable x-ray examination of the left wrist. Electronically Signed: Sriram Funes MD at 10:16 EST Tel , Service support ,
== END ==
PROVIDERS: PCP Family Medicine; Referring Provider Orthopaedic Surgery; Visit Provider Orthopaedic Surgery
DX: R20.0 Anesthesia of skin (principal); R20.2 Paresthesia of skin
CPT/HCPCS: 73110

== ENCOUNTER → 2019-10-10 08:57 | Outpatient (CLI) | payer MEDICARE, OTHER, SELFPAY ==
[2019-09-20 12:47] VITALS: BMI 31.2
[2019-10-10 10:41] LABS: Anion Gap 5 (5-15); BUN 13 mg/dL (7-18); BUN/Creat Ratio 18.9 RATIO (10-20); Calcium,Total 9.3 mg/dL (8.5-10.1); Chloride 105 mmol/L (98-107); Creatinine, Serum 0.69 mg/dL (0.55-1.02); EST Glomerular Filtration Rate 89 mL/min (>60); Est Glom Filt Rate - Afr Amer 107 mL/min (>60); Free T3 2.7 pg/mL (2.18-3.98); Glucose 162 mg/dL (74-106); Potassium 3.6 mmol/L (3.5-5.1); Sodium Level 139 mmol/L (136-145); T4 Total, Thyroxin 10.5 ug/dL (4.8-13.9); Thyroid Stim Hormone (TSH) 2.12 uIU/mL (0.358-3.74)
== END ==
PROVIDERS: PCP Family Medicine; Referring Provider Family Medicine; Visit Provider Family Medicine
DX: E11.9 Type 2 diabetes mellitus without complications (principal); E03.9 Hypothyroidism, unspecified
CPT/HCPCS: 36415; 80048; 84436; 84443; 84481

== ENCOUNTER 2019-10-28 07:31 | Day surgery (SDC) | payer MEDICARE, OTHER, SELFPAY ==
[2019-10-18 09:05] VITALS: BMI 31.2
--- NOTE | 2019-10-18 09:45 | HP_ITS ---
I have re-examined the patient. There are no clinical changes since date of exam. Intake Vital Signs 10/18/19 BMI 31.2 Intake Visit Reasons: left arm /hand Accompanied by: Self Is patient in pain?: No Allergies No Known Allergies Allergy (Verified 02/09/19 09:45) Medications calcium carbonate 500 mg calcium (1,250 mg) tablet 500 mg PO DAILY tab 10/13/17 [History Confirmed 10/18/19] folic acid 0.8 mg capsule 800 mcg PO QDAY 10/13/17 [History Confirmed 10/18/19] glimepiride 1 mg tablet 0.5 mg PO BID 10/13/17 [History Confirmed 10/18/19] levothyroxine 75 mcg capsule 75 mcg PO DAILY 10/13/17 [History Confirmed 10/18/19] metformin 1,000 mg tablet 1,000 mg PO BID 10/13/17 [History Confirmed 10/18/19] multivitamin 1 tab PO QAM 10/13/17 [History Confirmed 10/18/19] magnesium oxide 400 mg (241.3 mg magnesium) tablet 400 mg PO DAILY tab 10/16/17 [History Confirmed 10/18/19] rosuvastatin 5 mg tablet 5 mg PO QHS 01/20/19 [History Confirmed 10/18/19] [facility] Medical History (Updated 02/16/19 @ 13:[address] Qian Genao DO) Anemia (Acute) Carpal tunnel syndrome (Acute) Thyroid disease (Acute) Fatigue (Acute) Dysuria (Acute) Hyperlipemia (Acute) Diabetes (Acute) Foot drop, right (Acute) Surgical History H/O gastric bypass (Acute) Social History (Updated 10/18/19 @ 09:[address] Qian Genao DO) Smoking Status: Never smoker second hand exposure: No alcohol intake: never substance use type: does not use caffeine: No what type of physical activity do you participate in: walking frequency: 3-4 times per week seatbelt use: always HPI left arm /hand: Surgical H&P: Yes Details: Parts of this documentation were recorded by a scribe, this documentation accurately reflects the service provided and the decisions made by me, Dr. Qian Genao DO 10/18/19 0851. KARIE PLASCENCIA is a 74 year old F here today for left hand. F/U after having EMG completed of left upper extremity. Patient has had carpal tunnel injection of her left wrist last injection was 01/2019. Patient is here to discuss the results and discus her surgical options. She has numbness and tingling and of all of her fingers. Ortho Exam Left Wrist/Hand Left Wrist: Yes Durken's Test and Yes Thenar Atrophy No rales rhonchi wheezing, no abdominal pain, no audible bruits Assessment & Plan Problems 1. Carpal tunnel syndrome of left wrist G56.02 Plan Personally reviewed the EMG and explained that she has moderate carpal tunnel and her options are injection or release. Explained that the goal of surgery is to stop the progression. Reviewed the pre-operative plans with the patient. Risks and benefits of the procedure were fully explained, including but not limited to infection, neurovascular injury, continued pain, arthritis, stiffness, need for further surgery, re-injury, DVT, PE, general risks of anesthesia, and loss of limb or life. The patient understands all the risks and does wish to proceed with written consent. Follow up post op or sooner if pain, swelling, numbness or associated symptoms, or concerns develop. All questions answered. Patient in agreement of plan. Coding Level of Care Code Off vis,est,level 4 Diagnoses Carpal tunnel syndrome of left wrist G56.02 ??Laterality: left 10/18/19 0946 <Electronically signed by Qian tavarez DO> Date _ Qian Genao DO
[2019-10-28] VITALS (7 sets, daily range): BP systolic 116–124; BP diastolic 63–74; PULSE 60–70; RESP 16; TEMP 36.3–36.8; O2SAT 96–99; BMI 31.8
[2019-10-28] MEDS: Lactated Ringers 1,000 ML 100 ML IV (07:59)
[2019-10-28 08:35] LABS: Bedside Glucose 162 mg/dL (70-110)
--- NOTE | 2019-10-28 09:49 | OP.PCM_ITS ---
Report of Operation Date of Procedure: 10/28/19 Pre-Operative Diagnosis: left carpal tunnel syndrome Post-Operative Diagnosis: Same Surgery/Procedure Performed:: Left carpal tunnel release Type of Anesthesia:: Irving Calloway Anesthesiologist: Yuri Mistry Estimated Blood Loss (mL): min Fluids Replaced: 500ml lr Description of Procedure: Preoperative note Patient is a { 74yr old female } patient with nerve conduction study confirming carpal tunnel syndrome. Patient failed conservative treatment for her carpal tunnel elected proceed with left carpal tunnel release. Risks benefits and alternatives surgery discussed with patient. Risks including but not limited to blood loss, blood clot, infection, neurovascular injury, failure procedure, loss of life and loss of limb. Patient is aware like proceed with left carpal tunnel release. Operative note Patient seen and examined preoperative holding area. Left hand was marked. History and physical and consent reviewed. Patient was brought to the operating room placed supine on the operating table. Sign in, anesthesia, antibiotics were administered. Left upper extremity was prepped and draped after Limestone block was initiated. All bony prominences well-padded SCDs placed on bilateral lower extremities. We marked out our incisions for our carpal tunnel release at the intersection of Shashank's line in the fourth ray flexed. We extended about a centimeter and a half. Timeout was performed. We then checked ensure that the Irving block was working with pickups which it was. We then used a 15 blade to make a skin incision. We then dissected down tenotomy syllable of the transverse carpal ligament. We then used a new 15 blade cut through the transverse carpal ligament down to the level of the median nerve. We then further released the median nerve the combination of the 15 blade and tenotomies. The nerve was grayish in color and adherent to the transverse carpal ligament volarly. We released the transverse carpal ligament distally to the fat pad and then proximally under standard technique. We then palpated to ensure that we released all of the transverse carpal ligament which we did. We irrigated the incision with copious amounts of sterile saline. All bleeders were coagulated. The incision was closed with interrupted 4-0 nylon stitches. Tourniquet was deflated for total working time of 12 minutes. Patient tolerated procedure well there were no complications. Patient transferred to recovery room in stable condition. Postoperative note Hospital pharmacy has prescription Leave dressing clean dry and intact Follow-up in 2 weeks Call with concerns This note was generated with [employer] software. It may contain incorrect words, spelling, and punctuation that were not noted in checking the note before signing.
--- NOTE | 2019-10-28 09:49 | DCINST_ITS ---
Discharge Diet: No Restrictions - Leave dressing on until seen in postop clinic in 10-14 days for suture removal, keep dressing clean, dry, intact; change dressing if gets wet/dirty, call with concerns Discharge Activity: May Not Drive May shower in (days): 1 Ice area for (Minutes): 20 - Every hour while awake. Weight Bearing Status: Weight bearing as tolerated Keep extremity elevated above heart level: Operative Extremity Call your doctor if your incision/area has: Continuous Slow Oozing, Sudden Increased Bleeding, Increased Pain/ Swelling, Increased Redness, Foul Smelling Discharge Call your doctor if you observe: Fever of 101 or Higher, Coldness, Increased Pain, Numbness or Tingling, Change in Color, Calf discomfort Allergies/Adverse Reactions: Allergies No Known Allergies Allergy (Verified 10/28/19 07:45) Medications to take at Discharge calcium carbonate 500 mg calcium (1,250 mg) tablet 500 mg PO DAILY tab 10/13/17 folic acid 0.8 mg capsule 800 mcg PO QDAY 10/13/17 glimepiride 1 mg tablet 0.5 mg PO BID 10/13/17 levothyroxine 75 mcg capsule 75 mcg PO DAILY 10/13/17 metformin 1,000 mg tablet 1,000 mg PO BID 10/13/17 multivitamin 1 tab PO QAM 10/13/17 magnesium oxide 400 mg (241.3 mg magnesium) tablet 400 mg PO DAILY tab 10/16/17 rosuvastatin 5 mg tablet 5 mg PO QODAY 01/20/19 Aspirin [Aspir-Low] 81 mg PO DAILY 10/24/19 Primary Care Physician: Cachorro Whitney MD [Primary Care Provider] - Test Results: Test results from this visit will be discussed in further detail at your follow- up appointment, if applicable. Please Follow Up With: Qian Genao, DO - [phone]
[2019-10-28] MEDS: Mupirocin Ointment 22gm Tube 1 APPLIC (09:57)
[2019-10-28] MEDS: Cefazolin 2 GM in 0.9% Normal Saline 100 ML IV (10:09)
== END 2019-10-28 11:51 | disposition home or self-care (01) ==
LOC: SDC 07:32 → AC 07:34
PROVIDERS: PCP Family Medicine; Referring Provider Orthopaedic Surgery; Visit Provider Orthopaedic Surgery
PROC: (CPT 64721; principal; 2019-10-28 09:15)
DX: G56.02 Carpal tunnel syndrome, left upper limb (principal); E11.9 Type 2 diabetes mellitus without complications; E78.5 Hyperlipidemia, unspecified; E07.9 Disorder of thyroid, unspecified; Z78.0 Asymptomatic menopausal state; Z79.84 Long term (current) use of oral hypoglycemic drugs; Z79.82 Long term (current) use of aspirin; Z79.899 Other long term (current) drug therapy; Z86.2 Personal history of diseases of the blood and blood-forming organs and certain disorders involving the immune mechanism; Z98.84 Bariatric surgery status
CPT/HCPCS: 01810; 64721; 82962; J7120

== ENCOUNTER → 2020-04-09 08:49 | Outpatient (CLI) | payer MEDICARE, OTHER, SELFPAY ==
[2019-11-10 12:31] VITALS: BMI 31.8
[2020-04-09 10:19] LABS: Anion Gap 6 (5-15); BUN 9 mg/dL (7-18); BUN/Creat Ratio 15.2 RATIO (10-20); Calcium,Total 8.7 mg/dL (8.5-10.1); Chloride 104 mmol/L (98-107); Creatinine, Serum 0.59 mg/dL (0.55-1.02); EST Glomerular Filtration Rate 105 mL/min (>60); Est Glom Filt Rate - Afr Amer 126 mL/min (>60); Glucose 142 mg/dL (74-106); Sodium Level 140 mmol/L (136-145); Thyroid Stim Hormone (TSH) 1.36 uIU/mL (0.358-3.74)
[2020-04-09 10:24] LABS: Hemoglobin A1c 7.2 % (3.8-5.6)
[2020-04-09 10:47] LABS: Microalbumin,Random Urine < 5.0 mg/L (NO RANGE EST.)
== END ==
PROVIDERS: PCP Family Medicine; Referring Provider Family Medicine; Visit Provider Family Medicine
DX: E11.9 Type 2 diabetes mellitus without complications (principal); E03.9 Hypothyroidism, unspecified
CPT/HCPCS: 36415; 80048; 82043; 82570; 83036; 84443

== ENCOUNTER → 2020-05-01 07:25 | Outpatient (CLI) | payer MEDICARE, OTHER, SELFPAY ==
[2019-11-10 12:31] VITALS: BMI 31.8
--- NOTE | 2020-05-01 07:34 | BI_ITS ---
MAMMOGRAPHY - BILATERAL SCREENING REASON FOR EXAM: Female, 75 years old. Routine annual screening examination. PERTINENT HISTORY: Non-contributory. TECHNIQUE: Digital bilateral breast brittney (3D mammographic acquisition) in the CC and MLO projections. 2-D mediolateral oblique (MLO) and craniocaudad (CC) views of both breasts were obtained. CAD: Full Field Digital Mammography with Computer Added Detection was performed. COMPARISON: Comparison is made with prior study dated 12/30/2018 and 07/29/2016. FINDINGS: Breast Composition: There are scattered areas of fibroglandular density. There are no dominant masses or suspicious calcifications. No other significant abnormalities are identified. There has been no significant change since the prior study. BI/SCREEN MAMM (CAD) W/BRITTNEY BILAT IMPRESSION: Stable bilateral screening mammogram. Yearly follow-up mammogram recommended. (A) ASSESSMENT CATEGORY: BIRADS Category 1: Negative. A letter regarding these results will be sent to the patient by the facility within 30 days. Approximately 10% of breast cancers are not detected by mammography. A normal mammogram should not delay biopsy of a clinically suspicious abnormality. [id number] Electronically Signed: Pillo Diaz, at 9:26 EDT , Service support ,
== END ==
PROVIDERS: PCP Family Medicine; Referring Provider Family Medicine; Visit Provider Family Medicine
DX: Z12.31 Encounter for screening mammogram for malignant neoplasm of breast (principal)
CPT/HCPCS: 77063; 77067

== ENCOUNTER → 2021-01-07 08:19 | Outpatient (CLI) | payer MEDICARE, OTHER, SELFPAY ==
[2019-11-10 12:31] VITALS: BMI 31.8
[2021-01-07 10:47] LABS: Microalbumin,Random Urine < 5.0 mg/L (NO RANGE EST.)
[2021-01-07 11:02] LABS: Anion Gap 4 (5-15); BUN 9 mg/dL (7-18); BUN/Creat Ratio 14.8 RATIO (10-20); Calcium,Total 9.3 mg/dL (8.5-10.1); Chloride 107 mmol/L (98-107); Cholesterol 252 mg/dL (200); Creatinine, Serum 0.61 mg/dL (0.55-1.02); EST Glomerular Filtration Rate 102 mL/min (>60); Est Glom Filt Rate - Afr Amer 123 mL/min (>60); Free T3 2.5 pg/mL (2.18-3.98); Glucose 125 mg/dL (74-106); High Density Lipoprotein 92 mg/dL; Potassium 4.1 mmol/L (3.5-5.1); Sodium Level 139 mmol/L (136-145); T4 Free Direct 1.12 ng/dL (0.76-1.46); Thyroid Stim Hormone (TSH) 1.45 uIU/mL (0.358-3.74); Triglycerides 121 mg/dL; Very Low Density Lipoprotein 24 mg/dL (5-40)
== END ==
PROVIDERS: PCP Family Medicine; Visit Provider Family Medicine
DX: E03.9 Hypothyroidism, unspecified (principal); E11.9 Type 2 diabetes mellitus without complications
CPT/HCPCS: 36415; 80048; 80061; 82043; 82570; 84439; 84443; 84481

== ENCOUNTER → 2021-05-29 11:07 | Outpatient (CLI) | payer MEDICARE, OTHER, SELFPAY ==
[2021-05-29 12:25] LABS: Absolute Lymphocyte Count 2.24 X10^3/uL (0.83-4.51); Absolute Neutrophil Count 2.8 X10^3/uL (2.0-7.7); Basophil# 0.04 X10^3/uL; Basophil% 0.7 % (0-1); Eosinophil# 0.17 X10^3/uL; Hematocrit 35.6 % (37-47); Hemoglobin 10.9 g/dL (12.0-15.0); Lymphocyte # 2.24 X10^3/ul (0.83-4.51); Lymphocyte % 39.1 % (19-41); Mean Corp Hgb Conc 30.6 g/dL (32-36); Mean Corpuscular Hgb 23.4 pg (27.0-32.0); Mean Corpuscular Volume 76.6 fL (81-99); Mean Platelet Vol. 10.3 fl (6.2-12.0); Monocyte# 0.43 X10^3/uL; Monocyte% 7.5 % (0-10); NRBC Flagged by Analyzer 0 % (0-5); Neutrophil # 2.84 X10^3/uL (2.7-7.7); Neutrophil % 49.5 % (47-70); Platelet Count 266 K/mm3 (150-450); RBC Distribution Width CV 18.2 % (11.6-14.6); RBC Distribution Width SD 49.2 fl (35.1-43.9); Red Blood Count 4.65 M/mm3 (4.2-5.4); White Blood Count 5.7 K/mm3 (4.4-11.0)
[2021-05-29 13:00] LABS: AST(SGOT) 21 U/L (15-37); Alanine Aminotransfer ALT/SGPT 29 U/L (13-56); Albumin, Serum 3.7 g/dL (3.2-5.0); Alkaline Phosphatase 73 U/L (45-117); Anion Gap 7 (5-15); BUN 10 mg/dL (7-18); BUN/Creat Ratio 16.7 RATIO (10-20); Calcium,Total 9.3 mg/dL (8.5-10.1); Chloride 108 mmol/L (98-107); EST Glomerular Filtration Rate 103 mL/min (>60); Est Glom Filt Rate - Afr Amer 125 mL/min (>60); Globulin 3.8 g/dL (2.2-4.2); Glucose 72 mg/dL (74-106); Iron 115 ug/dL (50-170); Iron Binding Capacity,Total 511 ug/dL (250-450); PERCENT IRON SATURATION 22.5 % (15.0-55.0); Potassium 4.2 mmol/L (3.5-5.1); Protein, Total 7.5 g/dL (6.4-8.2); Sodium Level 141 mmol/L (136-145)
== END ==
PROVIDERS: PCP Family Medicine; Referring Provider Family Medicine; Visit Provider Family Medicine
DX: E11.9 Type 2 diabetes mellitus without complications (principal); R53.83 Other fatigue
CPT/HCPCS: 36415; 80053; 83540; 83550; 85025

== ENCOUNTER → 2021-06-24 08:42 | Outpatient (CLI) | payer MEDICARE, OTHER, SELFPAY ==
[2021-06-24 10:47] LABS: ALB/GLOB Ratio 0.9 RATIO (0.9-2.4); AST(SGOT) 9 U/L (15-37); Alanine Aminotransfer ALT/SGPT 28 U/L (13-56); Albumin, Serum 3.4 g/dL (3.2-5.0); Alkaline Phosphatase 72 U/L (45-117); Anion Gap 7 (5-15); BUN 12 mg/dL (7-18); BUN/Creat Ratio 18.3 RATIO (10-20); Calcium,Total 8.8 mg/dL (8.5-10.1); Chloride 105 mmol/L (98-107); Cholesterol 220 mg/dL (200); Creatinine, Serum 0.65 mg/dL (0.55-1.02); EST Glomerular Filtration Rate 93 mL/min (>60); Est Glom Filt Rate - Afr Amer 113 mL/min (>60); Globulin 3.8 g/dL (2.2-4.2); Glucose 150 mg/dL (74-106); High Density Lipoprotein 83 mg/dL; Potassium 3.8 mmol/L (3.5-5.1); Protein, Total 7.2 g/dL (6.4-8.2); Sodium Level 140 mmol/L (136-145); Thyroid Stim Hormone (TSH) 1.33 uIU/mL (0.358-3.74); Triglycerides 118 mg/dL; Very Low Density Lipoprotein 24 mg/dL (5-40)
== END ==
PROVIDERS: PCP Family Medicine; Visit Provider Family Medicine
DX: E78.5 Hyperlipidemia, unspecified (principal); E03.9 Hypothyroidism, unspecified
CPT/HCPCS: 36415; 80053; 80061; 84443

== ENCOUNTER → 2021-12-23 | Outpatient (CLI) | payer MEDICARE, OTHER, SELFPAY ==
[2021-12-23 09:42] LABS: Mucous, Urine 0 SEEN /hpf (<or=2+); Red Blood Cells-Urine 0 SEEN /hpf (0-5)
[2021-12-23 12:16] LABS: Color, Urine Yellow (Yellow); Glucose, Dipstick Normal (Normal); Ketone-Dipstick Negative (Negative); Leukocyte Esterase-Dipstick 500 /ul (Negative); Nitrite-Dipstick Positive (Negative); Occult Blood-Urine 25 /ul (Negative); Protein-Dipstick 15 mg/dl (Negative); Specific Gravity, Urine 1.015 (1.002-1.030); Urine Bilirubin Dipstick Negative (Negative); Urine Clarity Sl. Cloudy (Clear); Urine Urobilinogen Normal (Normal)
[2021-12-23 12:23] LABS: Bacteria 2+ /hpf (None Seen); Squamous Epithelial Cells - UA 5-10 SEEN /hpf (5-10); White Blood Cells >100 SEEN /hpf (0-5)
[2021-12-23 12:57] LABS: BUN 9 mg/dL (7-18); Creatinine, Serum 0.61 mg/dL (0.55-1.02); Glucose 151 mg/dL (74-106)
[2021-12-23 12:58] LABS: Anion Gap 6 (5-15); BUN/Creat Ratio 14.8 RATIO (10-20); Calcium,Total 8.7 mg/dL (8.5-10.1); Chloride 107 mmol/L (98-107); Cholesterol 210 mg/dL (200); EST Glomerular Filtration Rate 101 mL/min (>60); Est Glom Filt Rate - Afr Amer 122 mL/min (>60); Free T3 2.5 pg/mL (2.18-3.98); High Density Lipoprotein 75 mg/dL; Sodium Level 140 mmol/L (136-145); Thyroid Stim Hormone (TSH) 1.21 uIU/mL (0.358-3.74); Triglycerides 134 mg/dL; Very Low Density Lipoprotein 27 mg/dL (5-40)
== END | disposition home or self-care (01) ==
LOC: MFPLAB 09:39
PROVIDERS: PCP Family Medicine; Visit Provider Family Medicine
DX: E03.9 Hypothyroidism, unspecified (principal); E11.9 Type 2 diabetes mellitus without complications
CPT/HCPCS: 80048; 80061; 81001; 84439; 84443; 84481

== ENCOUNTER → 2022-06-25 | Outpatient (CLI) | payer MEDICARE, OTHER, SELFPAY ==
[2022-06-25 11:01] LABS: Microalbumin,Random Urine 8.5 mg/L (NO RANGE EST.); Microalbumin:Creatinine Ratio 26.3 mg/g CRE (<30 mg/g CRE)
[2022-06-25 11:02] LABS: Anion Gap 5 (5-15); BUN 12 mg/dL (7-18); BUN/Creat Ratio 18.8 RATIO (10-20); Calcium,Total 8.8 mg/dL (8.5-10.1); Chloride 106 mmol/L (98-107); Cholesterol 219 mg/dL (200); Creatinine, Serum 0.64 mg/dL (0.55-1.02); EST Glomerular Filtration Rate 96 mL/min (>60); Est Glom Filt Rate - Afr Amer 116 mL/min (>60); Free T3 2.5 pg/mL (2.18-3.98); Glucose 116 mg/dL (74-106); High Density Lipoprotein 78 mg/dL; Potassium 3.9 mmol/L (3.5-5.1); Sodium Level 139 mmol/L (136-145); T4 Free Direct 1.04 ng/dL (0.76-1.46); Thyroid Stim Hormone (TSH) 1.75 uIU/mL (0.358-3.74); Triglycerides 98 mg/dL; Very Low Density Lipoprotein 20 mg/dL (5-40)
== END | disposition home or self-care (01) ==
LOC: MFPLAB 08:30
PROVIDERS: PCP Family Medicine; Referring Provider Family Medicine; Visit Provider Family Medicine
DX: E11.9 Type 2 diabetes mellitus without complications (principal); E03.9 Hypothyroidism, unspecified
CPT/HCPCS: 36415; 80048; 80061; 82043; 82570; 84439; 84443; 84481

== ENCOUNTER → 2022-07-30 | Outpatient (CLI) | payer MEDICARE, OTHER, SELFPAY ==
--- NOTE | 2022-07-30 08:11 | BI_ITS ---
MAMMOGRAPHY - BILATERAL SCREENING REASON FOR EXAM: Female, 77 years old. Routine annual screening examination. PERTINENT HISTORY: Non-contributory. TECHNIQUE: Digital bilateral breast brittney (3D mammographic acquisition) in the CC and MLO projections. 2-D mediolateral oblique (MLO) and craniocaudad (CC) views of both breasts were obtained. CAD: Full Field Digital Mammography with Computer Added Detection was performed. COMPARISON: Comparison is made with prior study dated 05/01/2020 and 12/30/2018. FINDINGS: Breast Composition: There are scattered areas of fibroglandular density. There are no dominant masses or suspicious calcifications. No other significant abnormalities are identified. There has been no significant change since the prior study. BI/SCRN MAMM (CAD)W/BRITTNEY BILAT IMPRESSION: Stable bilateral screening mammogram. Yearly follow-up mammogram recommended. (A) ASSESSMENT CATEGORY: BIRADS Category 1: Negative. A letter regarding these results will be sent to the patient by the facility within 30 days. Approximately 10% of breast cancers are not detected by mammography. A normal mammogram should not delay biopsy of a clinically suspicious abnormality. [id number] Electronically Signed: Pillo Diaz MD at 9:52 EST ,
== END | disposition home or self-care (01) ==
LOC: OPBI 08:10
PROVIDERS: PCP Family Medicine; Visit Provider Family Medicine
DX: Z12.31 Encounter for screening mammogram for malignant neoplasm of breast (principal)
CPT/HCPCS: 77063; 77067

== ENCOUNTER → 2022-12-24 | Outpatient (CLI) | payer MEDICARE, SELFPAY ==
[2022-12-24 13:10] LABS: ALB/GLOB Ratio 1.2 RATIO (0.9-2.4); AST(SGOT) 20 U/L (15-37); Alanine Aminotransfer ALT/SGPT 27 U/L (13-56); Alkaline Phosphatase 55 U/L (45-117); Anion Gap 8 (5-15); BUN 10 mg/dL (7-18); BUN/Creat Ratio 16.6 RATIO (10-20); Calcium,Total 9.1 mg/dL (8.5-10.1); Chloride 108 mmol/L (98-107); Cholesterol 199 mg/dL (200); EST Glomerular Filtration Rate 102 mL/min (>60); Est Glom Filt Rate - Afr Amer 123 mL/min (>60); Globulin 3.4 g/dL (2.2-4.2); Glucose 123 mg/dL (74-106); High Density Lipoprotein 86 mg/dL; Potassium 3.8 mmol/L (3.5-5.1); Protein, Total 7.4 g/dL (6.4-8.2); Sodium Level 140 mmol/L (136-145); Thyroid Stim Hormone (TSH) 1.73 uIU/mL (0.358-3.74); Triglycerides 81 mg/dL; Very Low Density Lipoprotein 16 mg/dL (5-40)
== END | disposition home or self-care (01) ==
PROVIDERS: PCP Family Medicine; Visit Provider Family Medicine
DX: E03.9 Hypothyroidism, unspecified (principal); E11.9 Type 2 diabetes mellitus without complications
CPT/HCPCS: 36415; 80053; 80061; 84443

== ENCOUNTER → 2023-06-26 | Outpatient (CLI) | payer MEDICARE, SELFPAY ==
[2023-06-26 10:43] LABS: Anion Gap 6 (5-15); BUN 13 mg/dL (7-18); BUN/Creat Ratio 19.1 RATIO (10-20); Calcium,Total 9.2 mg/dL (8.5-10.1); Chloride 105 mmol/L (98-107); Cholesterol 211 mg/dL (200); Creatinine, Serum 0.68 mg/dL (0.55-1.02); EST Glomerular Filtration Rate 89 mL/min (>60); Est Glom Filt Rate - Afr Amer 107 mL/min (>60); Free T3 2.5 pg/mL (2.18-3.98); Glucose 144 mg/dL (74-106); High Density Lipoprotein 72 mg/dL; Potassium 3.9 mmol/L (3.5-5.1); Sodium Level 138 mmol/L (136-145); T4 Free Direct 1.17 ng/dL (0.76-1.46); Thyroid Stim Hormone (TSH) 1.74 uIU/mL (0.358-3.74); Triglycerides 86 mg/dL; Very Low Density Lipoprotein 17 mg/dL (5-40)
== END | disposition home or self-care (01) ==
LOC: MFPLAB 08:40
PROVIDERS: PCP Family Medicine; Visit Provider Family Medicine
DX: E03.9 Hypothyroidism, unspecified (principal); E11.9 Type 2 diabetes mellitus without complications
CPT/HCPCS: 36415; 80048; 80061; 84439; 84443; 84481

== ENCOUNTER → 2023-12-28 | Outpatient (CLI) | payer MEDICARE, SELFPAY ==
[2023-12-28 10:28] LABS: Absolute Lymphocyte Count 1.15 X10^3/uL (0.83-4.51); Absolute Neutrophil Count 2.3 X10^3/uL (2.0-7.7); Basophil# 0.03 X10^3/uL; Basophil% 0.7 % (0-1); Eosinophil# 0.29 X10^3/uL; Hematocrit 34.1 % (37-47); Hemoglobin 10.1 g/dL (12.0-15.0); Lymphocyte # 1.15 X10^3/ul (0.83-4.51); Lymphocyte % 27.7 % (19-41); Mean Corp Hgb Conc 29.6 g/dL (32-36); Mean Corpuscular Hgb 21.6 pg (27.0-32.0); Mean Corpuscular Volume 72.9 fL (81-99); Mean Platelet Vol. 10.1 fl (6.2-12.0); Monocyte# 0.36 X10^3/uL; Monocyte% 8.7 % (0-10); NRBC Flagged by Analyzer 0 % (0-5); Neutrophil # 2.31 X10^3/uL (2.7-7.7); Neutrophil % 55.7 % (47-70); Platelet Count 264 K/mm3 (150-450); RBC Distribution Width SD 49.3 fl (35.1-43.9); Red Blood Count 4.68 M/mm3 (4.2-5.4); White Blood Count 4.2 K/mm3 (4.4-11.0)
[2023-12-28 11:30] LABS: ALB/GLOB Ratio 1.2 RATIO (0.9-2.4); AST(SGOT) 16 U/L (15-37); Alanine Aminotransfer ALT/SGPT 20 U/L (13-56); Albumin, Serum 3.9 g/dL (3.2-5.0); Alkaline Phosphatase 57 U/L (45-117); Anion Gap 6 (5-15); BUN 7 mg/dL (7-18); BUN/Creat Ratio 11.5 RATIO (10-20); Calcium,Total 9.1 mg/dL (8.5-10.1); Chloride 107 mmol/L (98-107); Cholesterol 319 mg/dL (200); Creatinine, Serum 0.61 mg/dL (0.55-1.02); EST Glomerular Filtration Rate 101 mL/min (>60); Est Glom Filt Rate - Afr Amer 122 mL/min (>60); Free T3 2.6 pg/mL (2.18-3.98); Globulin 3.3 g/dL (2.2-4.2); Glucose 143 mg/dL (74-106); High Density Lipoprotein 84 mg/dL; Potassium 3.8 mmol/L (3.5-5.1); Protein, Total 7.2 g/dL (6.4-8.2); Sodium Level 140 mmol/L (136-145); Thyroid Stim Hormone (TSH) 2.33 uIU/mL (0.358-3.74); Triglycerides 116 mg/dL; Very Low Density Lipoprotein 23 mg/dL (5-40)
== END | disposition home or self-care (01) ==
LOC: MFPLAB 08:56
PROVIDERS: PCP Family Medicine; Visit Provider Family Medicine
DX: E03.9 Hypothyroidism, unspecified (principal); E11.9 Type 2 diabetes mellitus without complications; D64.9 Anemia, unspecified
CPT/HCPCS: 36415; 80053; 80061; 84439; 84443; 84481; 85025

== ENCOUNTER → 2024-03-18 | Outpatient (CLI) | payer MEDICARE, SELFPAY ==
--- NOTE | 2024-03-18 07:46 | BI_ITS ---
MAMMOGRAPHY - BILATERAL SCREENING REASON FOR EXAM: Female, 79 years old. Routine annual screening examination. PERTINENT HISTORY: Non-contributory. TECHNIQUE: Digital bilateral breast brittney (3D mammographic acquisition) in the CC and MLO projections. 2-D mediolateral oblique (MLO) and craniocaudad (CC) views of both breasts were obtained. CAD: Full Field Digital Mammography with Computer Added Detection was performed. COMPARISON: Comparison is made with prior study dated July 30, 2022 and May 01, 2020. FINDINGS: Breast Composition: There are scattered areas of fibroglandular density. There are no dominant masses or suspicious calcifications. No other significant abnormalities are identified. There has been no significant change since the prior study. BI/SCRN MAMM (CAD)W/BRITTNEY BILAT IMPRESSION: Stable bilateral screening mammogram. Yearly follow-up mammogram recommended. (A) ASSESSMENT CATEGORY: BIRADS Category 1: Negative. A letter regarding these results will be sent to the patient by the facility within 30 days. Approximately 10% of breast cancers are not detected by mammography. A normal mammogram should not delay biopsy of a clinically suspicious abnormality. [id number] Electronically Signed: Pillo Diaz MD at 8:40 EDT ,
== END | disposition home or self-care (01) ==
LOC: OPBI 07:44
PROVIDERS: PCP Family Medicine; Referring Provider Family Medicine; Visit Provider Family Medicine
DX: Z12.31 Encounter for screening mammogram for malignant neoplasm of breast (principal)
CPT/HCPCS: 77063; 77067

== ENCOUNTER → 2024-07-01 | Outpatient (CLI) | payer MEDICARE, SELFPAY ==
[2024-07-01 13:02] LABS: ALB/GLOB Ratio 1.1 RATIO (0.9-2.4); AST(SGOT) 16 U/L (15-37); Alanine Aminotransfer ALT/SGPT 20 U/L (13-56); Albumin, Serum 3.7 g/dL (3.2-5.0); Alkaline Phosphatase 63 U/L (45-117); Anion Gap 6 (5-15); BUN 11 mg/dL (7-18); BUN/Creat Ratio 19.1 RATIO (10-20); Calcium,Total 9.4 mg/dL (8.5-10.1); Chloride 106 mmol/L (98-107); Cholesterol 260 mg/dL (200); Creatinine, Serum 0.58 mg/dL (0.55-1.02); EST Glomerular Filtration Rate 107 mL/min (>60); Est Glom Filt Rate - Afr Amer 130 mL/min (>60); Free T3 2.6 pg/mL (2.18-3.98); Globulin 3.5 g/dL (2.2-4.2); Glucose 148 mg/dL (74-106); High Density Lipoprotein 73 mg/dL; Protein, Total 7.2 g/dL (6.4-8.2); Sodium Level 138 mmol/L (136-145); T4 Free Direct 1.11 ng/dL (0.76-1.46); Triglycerides 129 mg/dL; Very Low Density Lipoprotein 26 mg/dL (5-40)
== END | disposition home or self-care (01) ==
LOC: MFPLAB 09:16
PROVIDERS: PCP Family Medicine; Visit Provider Family Medicine
DX: E11.9 Type 2 diabetes mellitus without complications (principal); E03.9 Hypothyroidism, unspecified
CPT/HCPCS: 36415; 80053; 80061; 84439; 84443; 84481

== ENCOUNTER → 2024-09-06 | Outpatient (CLI) | payer MEDICARE, SELFPAY | END | disposition home or self-care (01) | LOC: LABSPEC 15:58 | PROVIDERS: PCP Family Medicine | DX: N39.0 Urinary tract infection, site not specified (principal) | CPT/HCPCS: 87077; 87086; 87088; 87186 ==

== ENCOUNTER → 2024-12-28 | Outpatient (CLI) | payer MEDICARE, SELFPAY ==
[2024-12-28 10:23] LABS: Absolute Lymphocyte Count 1.06 X10^3/uL (0.83-4.51); Basophil# 0.02 X10^3/uL; Basophil% 0.6 % (0-1); Eosinophil# 0.14 X10^3/uL; Hematocrit 27.8 % (37-47); Hemoglobin 8.2 g/dL (12.0-15.0); Lymphocyte # 1.06 X10^3/ul (0.83-4.51); Lymphocyte % 29.9 % (19-41); Mean Corp Hgb Conc 29.5 g/dL (32-36); Mean Corpuscular Hgb 20.2 pg (27.0-32.0); Mean Corpuscular Volume 68.6 fL (81-99); Monocyte# 0.32 X10^3/uL; NRBC Flagged by Analyzer 0 % (0-5); Neutrophil % 56.5 % (47-70); Platelet Count 241 K/mm3 (150-450); RBC Distribution Width CV 18.7 % (11.6-14.6); RBC Distribution Width SD 46.2 fl (35.1-43.9); Red Blood Count 4.05 M/mm3 (4.2-5.4); White Blood Count 3.5 K/mm3 (4.4-11.0)
[2024-12-28 11:03] LABS: ALB/GLOB Ratio 1.7 RATIO (0.9-2.4); AST(SGOT) 18 U/L (<=31); Alanine Aminotransfer ALT/SGPT 16 U/L (<=34); Albumin, Serum 4.2 g/dL (3.4-4.8); Alkaline Phosphatase 63 U/L (35-104); Anion Gap 11 (5-15); BUN 7 mg/dL (4-19); BUN/Creat Ratio 13.1 RATIO (10-20); Calcium,Total 9.2 mg/dL (7.6-11.0); Carbon Dioxide 23.5 mmol/L (21.0-32.0); Chloride 107 mmol/L (98-108); Cholesterol 259 mg/dL (<=200); Creatinine, Serum 0.57 mg/dL (0.70-1.20); EST Glomerular Filtration Rate 92 (>60); Free T3 2.6 pg/mL (2.18-3.98); Globulin 2.5 g/dL (2.2-4.2); Glucose 103 mg/dL (70-99); High Density Lipoprotein 72 mg/dL; Low Density Lipoprotein Calc. 167 mg/dL; Potassium 3.8 mmol/L (3.3-5.1); Protein, Total 6.7 g/dL (5.9-8.4); Sodium Level 141 mmol/L (133-145); Total Bilirubin 0.31 mg/dL (0.00-1.30); Triglycerides 98 mg/dL; Very Low Density Lipoprotein 20 mg/dL (5-40); cholesterol:hdl ratio screen 3.59
[2024-12-28 11:09] LABS: Microalbumin,Random Urine < 12.0 mg/L (NO RANGE EST.); Microalbumin:Creatinine Ratio UNABLE TO CALCULATE mg/g CRE
== END | disposition home or self-care (01) ==
LOC: MFPLAB 09:25
PROVIDERS: PCP Family Medicine; Referring Provider Family Medicine; Visit Provider Family Medicine
DX: D64.9 Anemia, unspecified (principal); E11.9 Type 2 diabetes mellitus without complications; E03.9 Hypothyroidism, unspecified
CPT/HCPCS: 36415; 80053; 80061; 82043; 82570; 84439; 84443; 84481; 85025

== ENCOUNTER 2025-02-07 07:01 | Day surgery (SDC) | payer MEDICARE, SELFPAY ==
--- NOTE | 2025-02-03 11:51 | PAT.ANESEVAL ---
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 When Was Last Pacemaker Check QUESTION #4 FULL TEXT: You/Your Family Experience fever (hyperthermia) with Anesthesia Last Oral Intake Last Oral intake: Last Oral Intake NPO since Meds taken in AM with sips of water? Meds patient instructed to take am of surgery PONV PONV - burring wheel operator: PONV - burring wheel operator Female Yes 02/03/25 09:14 HX of Motion Sickness No 02/03/25 09:14 HX of N/V After Surgery No 02/03/25 09:14 Non-Smoker Yes 02/03/25 09:14 Duration of Surgery greater No 02/03/25 09:14 than 60 minutes Number of Risk Factors 2 02/03/25 09:14 PONV Score Moderate Risk 02/03/25 09:14 Height & Weight Height & Weight: Anesthesia: Height & Weight Height 5 ft 4 in 01/09/25 13:52 Respiratory Assessment Respiratory Assessment - burring wheel operator: Respiratory Tract Infection Hx - burring wheel operator Hx Respiratory Tract Infection No 02/03/25 09:14 STOP Sleep Apnea STOP Sleep Apnea - burring wheel operator: STOP Sleep Apnea - burring wheel operator Hx Hypertension No: hypotension 02/03/25 09:14 Hx Sleep Apnea No 02/03/25 09:14 CPAP BIPAP Do you snore loudly (louder No 02/03/25 09:14 than talking or can be heard Do you often feel tired/ No 02/03/25 09:14 fatigued/ sleepy during daytime? Has anyone observed you stop No 02/03/25 09:14 breathing during sleep? STOP Results Negative 02/03/25 09:14 QUESTION #5 FULL TEXT : Do you snore loudly (louder than talking or can be heard through closed doors)? 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 Specify any problems Hx of Preganancy in last 3 No 02/03/25 09:14 Months Nurse Filling Out Transfusion VCHRISTIN 02/03/25 09:14 & Questions: Date: 02/03/25 02/03/25 09:14 Time: 09:15 02/03/25 09:14 Patient unable to answer at this time (ie. confused, unrespo /Reproduction History /Reproductive History - burring wheel operator: /Reproductive Hx- burring wheel operator Hx Now No 02/03/25 09:14 Gestational Age (in weeks): EDC: Hx Hx Para Hx Section SAB No 02/03/25 09:14 [facility] Medical History (Updated 02/03/25 @ 09:14 by Elena Matias) Wears partial dentures Wears glasses Post-menopausal Non-smoker History of echocardiogram History of stress test History of irregular heartbeat Foot drop, right Anemia Carpal tunnel syndrome Thyroid disease Fatigue Dysuria Hyperlipemia Diabetes Home Medications ?Medication ?Instructions ?Recorded ?Last Taken ?Type calcium carbonate (Calcium 500) 500 mg PO DAILY 10/13/17 Unknown History folic acid 0.8 mg capsule 800 mcg PO QDAY 10/13/17 Unknown History glimepiride 1 mg tablet 0.5 mg PO DAILY 10/13/17 Unknown History levothyroxine 75 mcg capsule 75 mcg PO DAILY 10/13/17 02/16/19 08:00 History 75 MCG metformin 1,000 mg tablet 1,000 mg PO BID 10/13/17 Unknown History multivitamin 1 tab PO QAM 10/13/17 Unknown History magnesium oxide 400 mg (241.3 mg 400 mg PO DAILY 02/23/18 Unknown History magnesium) tablet aspirin 81 mg tablet,delayed 81 mg PO DAILY heart health 10/24/19 Unknown History release ferrous sulfate 325 mg (65 mg 325 mg PO TID 01/09/25 01/31/25 History iron) tablet (Feosol) Allergy/AdvReac Type Severity Reaction Status Date / Time No Known Allergies Allergy Verified 02/03/25 09:03 Family History (Updated 01/09/25 @ 13:52 by Ciara Hernandez) Mother Uterine cancer Sister Heart disease Thyroid disorder Surgical History (Updated 02/03/25 @ 09:14 by Elean Matias) History of cardiac catheterization Hx of colonoscopy History of esophagogastroduodenoscopy (EGD) History of carpal tunnel release of both wrists H/O gastric bypass Social History Smoking Status: Never smoker second hand exposure: No alcohol intake: never substance use type: does not use caffeine: No what type of physical activity do you participate in: walking frequency: 3-4 times per week seatbelt use: always Audit: Pertinent Findings Pertinent Findings Additional pertinent findings: Hemoglobin 8.2. Potassium 3.8. Chronic stable. Anemia. Part of reason for endoscopy. Recommendation Anesthesia Recommendation Anesthesia recommendation: OPTIMIZED for anesthesia
[2025-02-07] VITALS (10 sets, daily range): BP systolic 87–124; BP diastolic 43–77; PULSE 68–77; RESP 16–18; TEMP 36.6–37; O2SAT 95–100; BMI 26.0
--- OUTSIDE RECORDS SUMMARY | 2025-02-07 07:08 | XMS RPT_ITS | CCD ---
Author Organization [facility] CliniSyva Care Team Providers Care Donor Specialist Name Role Phone Unavailable Primary Care Provider Unavailtabby Whitney MD, Dr. 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 Ivory Attending Provider Devonte PALACIOS, Dr. Ivory Referring Provider Devonte PALACIOS, Dr. Ivory Primary Care Provider [phone] Agustin PALACIOS, Dr. Longoria Attending Provider Cachorro Whitney Referring Unavailable Whitney, Cachorro Primary Care Unavailable Von Velez Attending Unavailable Whitney, Cachorro Primary Care Unavailable Whitney, Cachorro Attending Unavailable Whitney, Cachorro Primary Care Unavailable Yumiko PAYNE, Candie Attending Unavailable Whitney, Cachorro Referring Unavailable Whitney, Cachorro Primary Care Unavailable Whitney, Cachorro Attending Unavailable Whitney, Cachorro Referring Unavailable Whitney, Cachorro Primary Care Unavailable Whitney, Cachorro Attending Unavailable Whitney, Cachorro Primary Care Unavailable Kirillabreugenia, Von Attending Unavailable Whitney, Cachorro Referring Unavailable Medications Current Medications Medication Drug Class(es) Dates Sig (Normalized) Sig (Original) aspirin 81 mg delayed release oral tablet (14 sources) Platelet Aggregation Inhibitor, Nonsteroidal Anti-inflammatory Drug Start: 10-24-2019 take 1 tablet by mouth once daily Aspirin 81 MG tablet,delayed release (DR/EC) Active 81 mg PO DAILY October 24, 2019 1:00am Start: 10-13-2017 End: 10-16-2017 Aspirin 81 mg tablet,delayed release (DR/EC) Discontinued PO October 13, 2017 1:00am October 16, 2017 4:05pm Start: 10-13-2017 End: 10-16-2017 Aspirin Discontinued PO 2017 1:00am October 16, 2017 4:05pm calcium carbonate 1250 mg oral tablet (7 sources) Start: 10-13-2017 take 1 tablet by mouth once daily Calcium Carbonate (Calcium 500) 500 mg calcium (1,250 mg) tablet Active 500 mg PO DAILY October 13, 2017 1:00am ferrous sulfate 325 mg oral tablet (1 source) Start: 01-09-2025 take 1 tablet by mouth three times daily Ferrous Sulfate (Feosol) 325 mg (65 mg iron) tablet Active 325 mg PO THREE TIMES A DAY January 09, 2025 12:00am folic acid 0.8 mg oral capsule (7 sources) Start: 10-13-2017 Folic Acid 0.8 mg capsule Active 800 ug PO daily October 13, 2017 1:00am Start: 10-13-2017 take 800 ug by mouth once jose y Folic Acid Active 800 MCG PO daily October 13, 2017 1:00am glimepiride 1 mg oral tablet (7 sources) Sulfonylurea Start: 10-13-2017 take 0.5 mg by mouth twice daily Glimepiride 1 mg tablet Active 0.5 mg PO TWICE A DAY October 13, 2017 1:00am Start: 10-13-2017 take 0.5 mg by mouth twice daily Glimepiride Active 0.5 MG PO TWICE A DAY October 13, 2017 1:00am levothyroxine sodium 0.075 mg oral capsule (7 sources) l-Thyroxine Start: 10-13-2017 take 1 capsule by mouth once daily Levothyroxine 75 mcg capsule Active 75 ug PO DAILY October 13, 2017 1:00am magnesium oxide 400 mg oral tablet (7 sources) Start: 10-16-2017 take 1 tablet by mouth once daily Magnesium Oxide 400 mg tablet Active 400 mg PO DAILY October 16, 2017 1:00am metFORMIN hydrochloride 1000 mg oral tablet (7 sources) Biguanide Start: 10-13-2017 take 1 tablet by mouth twice daily Metformin 1,000 mg tablet Active 1000 mg PO TWICE A DAY October 13, 2017 1:00am Multivitamin preparation (5 sources) Start: 10-13-2017 take 1 tablet by mouth once daily in the morning Multivitamin Active 1 TABLET PO EVERY MORNING October 13, 2017 2:21pm Start: 10-13-2017 take 1 tablet by warner th once daily in the morning Multivitamin Active 1 TABLET PO EVERY MORNING October 13, 2017 1:00am Start: 10-13-2017 take 1 tablet by warner th once daily in the morning Multivitamin Active 1 TABLET PO EVERY MORNING October 13, 2017 12:00am Multivitamin tablet (2 sources) Start: 10-13-2017 Multivitamin t ablet Active 1 {tbl} PO EVERY MORNING October 13, 2017 1:00am rosuvastatin calcium 5 mg oral tablet (7 sources) HMG-CoA Reductase Inhibitor Start: 01-20-2019 take 1 tablet by mouth every other day Rosuvastatin 5 mg tablet Active 5 mg PO EVERY OTHER DAY January 20, 2019 12:00am Completed/Discontinued Medications Medication Drug Class(es) Dates Sig (Normalized) Sig (Original) acetaminophen 300 mg / codeine phosphate 30 mg oral tablet (7 sources) Opioid Agonist Start: 02-16-2019 End: 02-19-2019 take 1 tablet by mouth every six hours as needed for pain Acetaminophen-Codei ne 1 TABLET tablet Discontinued 1 - 2 {tbl} PO EVERY 6 HOURS NEEDED as needed for Pain 10 February 16, 2019 12:00am February 17, 2019 12:00am February 19, 2019 12:09am take one tab every 6 hours as needed for pain, stop all other tylenol products Start: 02-16-2019 End: 02-19-2019 take 1 tablet by mouth every six hours as needed for pain Acetaminophen-Codeine Discontinued 1 - 2 TABLET PO EVERY 6 HOURS NEEDED 10 February 16, 2019 12:00am February 19, 2019 12:09am take one tab every 6 hours as needed for pain, stop all other tylenol products triamcinolone acetonide 40 mg/ml injectable suspension (5 sources) Corticosteroid Start: 07-26-2020 End: 07-26-2020 Kenalog (triamcinolone acetonide) 40 mg/mL suspension for injection Discontinued 20 MG INTRAARTIC ONCE 0.5 July 26, 2020 3:59pm July 26, 2020 4:41pm Start: 11-25-2018 End: 11-25-2018 Kenalog (triamcinolone aceto nide) 40 mg/mL suspension for injection Discontinued 40 MG Intrasynovial ONCE 1 November 25, 2018 8:00am November 25, 2018 9:03am Start: 08-03-2018 End: 08-03-2018 Kenalog (triamcinolone aceto nide) 40 mg/mL suspension for injection Discontinued 20 MG TENDON ONCE 0.5 August 03, 2018 11:03am August 03, 2018 11:27am Start: 05-06-2018 End: 05-06-2018 Kenalog (triamcinolone aceto nide) 10 mg/mL suspension for injection Discontinued 10 MG TENDON ONCE 1 May 06, 2018 12:27pm May 06, 2018 12:58pm Start: 10-13-2017 End: 10-13-2017 Kenalog (triamcinolone aceto nide) 10 mg/mL suspension for injection Discontinued 0.5 MG TENDON ONCE 0.05 October 13, 2017 2:49pm October 13, 2017 2:52pm Problems Active Problems Problem Classification Problem Date Documented Da te Episodic/Chronic Acquired foot deformities (1 source) Right foot drop; Translations: [Right foot drop] Deficiency and other anemia (8 sources) Anemia; Translations: [Anemia, unspecified] 11-10-2017 Episodic Deficiency and other anemia (1 source) Iron deficiency anemia, unspecified; Translations: [Iron deficiency anemia, unspecified] Onset: 01-09-2025 Episodic Deficiency and other anemia (1 source) Anemia, unspecified; Translations: [Anemia, unspecified] Onset: 01-02-2025 Episodic Diabetes mellitus without complication (8 sources) Diabetes mellitus; Translations: [Type 2 diabetes mellitus without complications] Onset: 07-26-2024 11-10-2017 Chronic Disorders of lipid metabolism (7 sources) Hyperlipidemia; Translations: [Hyperlipidemia, unspecified] 11-10-2017 Chronic Genitourinary symptoms and ill-defined conditions (7 sources) Dysuria; Translations: [Dysuria] 11-10-2017 Episodic Malaise and fatigue (7 sources) Fatigue; Translations: [Other fatigue] 11-10-2017 Episodic Other gastrointestinal disorders (8 sources) History of bypass of stomach; 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] 11-10-2017 Episodic Other gastrointestinal disorders (1 source) Bariatric surgery status; 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] Onset: 01-09-2025 Episodic Other nervous system disorders (7 sources) Carpal tunnel syndrome; Translations: [Carpal tunnel syndrome, unspecified upper limb] 05-06-2018 Chronic Thyroid disorders (7 sources) Disorder of thyroid gland; Translations: [Disorder of thyroid, unspecified] 11-10-2017 Episodic Past or Other Problems Problem Classification Problem Date Documented Da te Episodic/Chronic Other screening for suspected conditions (not mental disorders or infectious disease) (1 source) Encounter for screening mammogram for malignant neoplasm of breast; Translations: [Encounter for screening mammogram for malignant neoplasm of breast] Onset: 04-12-2024 Episodic Urinary tract infections (1 source) Urinary tract infection, site not specified; Translations: [Urinary tract infection, site not specified] Onset: 09-29-2024 Episodic Results Test Name Value Interpretation Reference Range Facility MR/PATElif 02-03-2025 MR/PAT.[facility] Medical Records Department [address] [place] [address] PAT - Anesthesia 02/03/25 1151 MR#: [id number] Acct: [id number] Name: KARIE PLASCENCIA Rep #: [id number] : 1945 79 From: Yuri Mistry MD PCP: Dr. 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 When Was Last Pacemaker Check QUESTION #4 FULL TEXT: You/Your Family Experience fever (hyperthermia) with Anesthesia Last Oral Intake Last Oral intake: Last Oral Intake NPO since Meds taken in AM with sips of water? 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 machine operator Female Yes 02/03/25 09:14 HX of Motion Sickness No 02/03/25 09:14 HX of N/V After Surgery No 02/03/25 09:14 Non-Smoker Yes 02/03/25 09:14 Duration of Surgery greater No 02/03/25 09:14 than 60 minutes Number of Risk Factors 2 02/03/25 09:14 PONV Score Moderate Risk 02/03/25 09:14 Height Weight Height Weight: Anesthesia: Height Weight Height 5 ft 4 in 01/09/25 13:52 Respiratory Assessment Respiratory Assessment - paper baling machine operator: Respiratory Tract Infection Hx - paper baling machine operator Hx Respiratory Tract Infection No 02/03/25 09:14 STOP Sleep Apnea STOP Sleep Apnea - paper baling machine operator: STOP Sleep Apnea - paper baling machine operator Hx Hypertension No: hypotension 02/03/25 09:14 Hx Sleep Apnea No 02/03/25 09:14 CPAP BIPAP Do you snore loudly (louder No 02/03/25 09:14 than talking or can be heard Do you often feel tired/ No 02/03/25 09:14 fatigued/ sleepy during daytime? Has anyone observed you stop No 02/03/25 09:14 breathing during sleep? STOP Results Negative 02/03/25 09:14 QUESTION #5 FULL TEXT : Do you snore loudly (louder than talking or can be heard through closed doors)? 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 Specify any problems Hx of Preganancy in last 3 No 02/03/25 09:14 Months Nurse Filling Out Transfusion VCHRISTIN 02/03/25 09:14 Questions: Date: 02/03/25 02/03/25 09:14 Time: 09:15 02/03/25 09:14 Patient unable to answer at this time (ie. confused, unrespo /Reproduct ion History /Reproduct carlos History - paper baling machine operator: /Reproduct carlos Hx- paper baling machine operator Hx Now No 02/03/25 09:14 Gestational Age (in weeks): EDC: Hx Hx Para Hx Section SAB No 02/03/25 09:14 [facility] Medical History (Updated 02/03/25 @ 09:14 by Elena Matias) Wears partial dentures Wears glasses Post-menopausal Non-smoker History of echocardiogram History of stress test History of irregular heartbeat Foot drop, right Anemia Carpal tunnel syndrome Thyroid disease Fatigue Dysuria Hyperlipemia Diabetes Home Medications ???Medication ???Instructions ???Recorded ???Last Taken ???Type calcium carbonate (Calcium 500) 500 mg PO DAILY 10/13/17 Unknown H istory folic acid 0.8 mg capsule 800 mcg PO QDAY 10/13/17 Unknown H istory glimepiride 1 mg tablet 0.5 mg PO DAILY 10/13/17 Unknown H istory levothyroxine 75 mcg capsule 75 mcg PO DAILY 10/13/17 02/16/19 08:00 History 75 MCG metformin 1,000 mg tablet 1,000 mg PO BID 10/13/17 Unknown H istory multivitamin 1 tab PO QAM 10/13/17 Unknown Hist ory magnesium oxide 400 mg (241.3 mg 400 mg PO DAILY 10/16/17 Unknown H istory magnesium) tablet aspirin 8 (more content not included)... Normal [facility] Surgery Visit Reporton 01-[address] [facility] [address] [place] [address] [address] [place] [address] OFFICE VISIT Date of Service: 01/09/25 MR#: [id number] Acct: [id number] Name: KARIE PLASCENCIA Rep #: [id number] : 1945 Provider: Dr. Von chun MD Age/Sex: 79/F Location: [facility] Status: Signed Intake Vital Signs 01/07/21 08:19 01/09/25 13:52 Height 5 ft 4 in 5 ft 4 in Weight: 163 lb BMI 27.9 BP 126/75 H Blood Pressure Location Rt brachial Position Sitting Respiration 17 Pulse 64 Pulse Source Monitor Pulse Oximetry (%) 97 Oxygen Delivery Method room air Intake Visit Reasons: POSSIBLE GI BLEED Chief Complaint: possible GI Bleed Is patient in pain?: No Allergies No Known Allergies Allergy (Verified 01/09/25 13:53) Medications ???Medication ???Instructions ???Recorded ???Confirmed ???Type calcium carbonate (Calcium 500) 500 mg PO DAILY 10/13/17 01/09/25 History folic acid 0.8 mg capsule 800 mcg PO QDAY 10/13/17 01/09/25 History glimepiride 1 mg tablet 0.5 mg PO BID 10/13/17 01/09/25 Hi story levothyroxine 75 mcg capsule 75 mcg PO DAILY 10/13/17 01/09/25 History metformin 1,000 mg tablet 1,000 mg PO BID 10/13/17 01/09/25 History multivitamin 1 tab PO QAM 10/13/17 01/09/25 His tory magnesium oxide 400 mg (241.3 mg 400 mg PO DAILY 10/16/17 01/09/25 History magnesium) tablet rosuvastatin 5 mg tablet 5 mg PO QODAY 01/20/19 01/09/25 Hi story aspirin 81 mg tablet,delayed 81 mg PO DAILY heart health 01/09/25 History release ferrous sulfate 325 mg (65 mg 325 mg PO TID 01/09/25 01/09/25 Hi story iron) tablet (Feosol) Have you fallen in the past year?: No PFSH Medical History Foot drop, right Anemia Carpal tunnel syndrome Thyroid disease Fatigue Dysuria Hyperlipemia Diabetes Surgical History H/O gastric bypass Family History (Updated 01/09/25 @ 13:52 by Ciara Hernandez) Mother Uterine cancer Sister Heart disease Thyroid disorder Social History Smoking Status: Never smoker second hand exposure: No alcohol intake: never substance use type: does not use caffeine: No what type of physical activity do you participate in: walking frequency: 3-4 times per week seatbelt use: always HPI HPI HPI: The patient is an 79-year-old female here with anemia. She does not note any gross blood in her stool. She has also had 30 pounds of unintentional weight loss. Her last EGD and colonoscopy were in 2018 and were normal. That was also done for anemia. Currently she is not having any abdominal pain. ROS General General: Yes weight change and fatigue; No appetite, colon cancer, breast cancer or weakness HEENT HEENT: No difficulty swallowing, eye injury, eye surgery, swollen glands or hoarseness Endo Endocrine: Yes thyroid disease and diabetes mellitus; No thyroid cancer, Hair loss, heat intolerance or cold intolerance Skin Skin: No rash or changing moles Breast Breast: No left breast lump, right breast lump, nipple discharge, breast pain, abnormal mammogram, abnormal US or breast enlargement Musc Musculoskeletal: No back problems, arthritis, rheumatoid arthritis, gout or joint pain Cardio Cardiovascular: No murmur, pacemaker, heart disease, atrial fibrillation, high blood pressure, heart attack, heart stent, palpitations, shortness of breath with exertion or chest pain Psych Psychiatric: No depression, anxiety or hearing voices Resp Respiratory: No shortness of breath, No sleep apnea, No cough, No COPD, No asthma, No emphysema and No wheezing Gastro Gastrointestinal: No abdominal pain, No nausea or vomiting, No diarrhea, No constipation, No blood in stool, No acid reflux, No hemorrhoids, No ulcers, No gallbladder problem and No black,tarry stools Jasson Hematologic: No blood thinners, No blood disorders, No bleeding, Yes anemia and No blood clots Neuro Neurologic: No system reviewed and no additional complaints, except as documented, No as per HPI, No abnormal gait, No abnormal hearing, No abnormal movements, No abnormal speech, No behavioral changes, No burning sensations, No confusion, No convulsions, No disequilibrium, No dizziness, No localized weakness, No frequent falls, No headache(s), No lack of coordination, No loss of vision, No memory loss, No numbness, No other visual disturbances, No radicular pain, No restless legs, No sensory deficit, No syncope, No tingling, No tremor(s), No weakness and No other Exam Const General: cooperative Orientation: alert and oriented x3 HENMT Head: normal to inspection Neck Neck: normal visual inspection and full ROM Chest C (more content not included)... Normal [facility] Absolute lymphocyte countOrd ered By: Cachorro Whitney on 12-28-2024 Lymphocytes Auto (Unsp spec) [#/Vol] 1.06 10*3/uL 0.83-4.51 [facility] Absolute neutrophil countOrd ered By: Cachorro Whitney on 12-28-2024 Neutrophils (Bld) [#/Vol] 2.0 10*3/uL 2.0-7.7 [facility] Anion gap in Serum or Plasma Ordered By: Cachorro Whitney on 12-28-2024 Anion gap [Moles/Vol] 11 mmol/L 5- [facility] Automated lymphocyte count a s percentage of total leukocytesOrdered By: Cachorro Whitney on 12-28-2024 Lymphocytes/100 WBC Auto (Unsp spec) 29.9 % - [facility] BUN/creatinine ratioOrdered By: Cachorro Whitney on 12-28-2024 Urea nitrogen/Creatinine [Mass ratio] 13.1 mg/mg 10- [facility] Basophil percentageOrdered B y: Cachorro Whitney on 12-28-2024 Basophils/100 WBC (Bld) 0.6 % 0-1 [facility] Bilirubin, totalOrdered By: Cachorro Whitney on 12-28-2024 Bilirubin [Mass/Vol] 0.31 mg/dL 0.00-1.30 [facility] CBC W/Diff, Automatedon Absolute Lymph 1.06 X10 3/uL Normal 0.83-4.51 [facility] Comment on above: Performed By: #### L 506.0400, L501.9520, L502.0250, L501.30935, L100.0100, L500.4100, L500.4050 #### [facility] [address] [place], [address] Absolute Neut 2.0 X10 3/uL Normal 2.0-7.7 [facility] Comment on above: Performed By: #### L 506.0400, L501.9520, L502.0250, L501.32826, L100.0100, L500.4100, L500.4050 #### [facility] [address] [place], [address] Basophils/100 WBC (Bld) 0.6 % Normal 0-1 [facility] Comment on above: Performed By: #### L 506.0400, L501.9520, L502.0250, L501.09421, L100.0100, L500.4100, L500.4050 #### [facility] [address] [place], [address] Eosinophils/100 WBC (Bld) 4.0 % Normal 0-5 [facility] Comment on above: Performed By: #### L 506.0400, L501.9520, L502.0250, L501.73212, L100.0100, L500.4100, L500.4050 #### [facility] [address] [place], [address] Erythrocyte distribution width (RBC) [Ratio] 18.7 % High 11.6-14.6 [facility] Comment on above: Performed By: #### L 506.0400, L501.9520, L502.0250, L501.53998, L100.0100, L500.4100, L500.4050 #### [facility] [address] [place], [address] Hematocrit (Bld) [Volume fraction] 27.8 % Low 37-47 [facility] Comment on above: Performed By: #### L 506.0400, L501.9520, L502.0250, L501.58064, L100.0100, L500.4100, L500.4050 #### [facility] [address] [place], [address] Hemoglobin (Bld) [Mass/Vol] 8.2 g/dL Low 12.0-15.0 [facility] Comment on above: Performed By: #### L 506.0400, L501.9520, L502.0250, L501.63028, L100.0100, L500.4100, L500.4050 #### [facility] [address] [place], [address] IG% 0.000 Normal 0.0-0.9 [facility] Comment on above: Result Comment: IG% - Immature Granulocytes (promyelocytes, myelocytes and metamyelocytes) > 1% indicates that a LEFT SHIFT is Present. Performed By: #### L 506.0400, L501.9520, L502.0250, L501.12187, L100.0100, L500.4100, L500.4050 #### [facility] [address] [place], [address] Lymphocytes/100 WBC (Bld) 29.9 % Normal 19-41 [facility] Comment on above: Performed By: #### L 506.0400, L501.9520, L502.0250, L501.13193, L100.0100, L500.4100, L500.4050 #### [facility] [address] [place], [address] MCH (RBC) [Entitic mass] 20.2 pg Low 27.0-32.0 [facility] Comment on above: Performed By: #### L 506.0400, L501.9520, L502.0250, L501.42461, L100.0100, L500.4100, L500.4050 #### [facility] [address] [place], [address] MCHC (RBC) [Mass/Vol] 29.5 g/dL Low 32-36 [facility] Comment on above: Performed By: #### L 506.0400, L501.9520, L502.0250, L501.48185, L100.0100, L500.4100, L500.4050 #### [facility] [address] [place], [address] MCV (RBC) [Entitic vol] 68.6 fL Low 81-99 [facility] Comment on above: Performed By: #### L 506.0400, L501.9520, L502.0250, L501.99041, L100.0100, L500.4100, L500.4050 #### [facility] [address] [place], [address] Monocytes/100 WBC (Bld) 9.0 % Normal 0-10 [facility] Comment on above: Performed By: #### L 506.0400, L501.9520, L502.0250, L501.26683, L100.0100, L500.4100, L500.4050 #### [facility] [address] [place], [address] Neutrophils/100 WBC (Bld) 56.5 % Normal 47-70 [facility] Comment on above: Performed By: #### L 506.0400, L501.9520, L502.0250, L501.87527, L100.0100, L500.4100, L500.4050 #### [facility] [address] [place], [address] Nucleated RBC (Bld) [#/Vol] 0 10*3/uL Normal 0-5 [facility] Comment on above: Performed By: #### L 506.0400, L501.9520, L502.0250, L501.96561, L100.0100, L500.4100, L500.4050 #### [facility] [address] [place], [address] Platelet mean volume (Bld) [Entitic vol] 10.0 fL Normal 6.2-12.0 [facility] Comment on above: Performed By: #### L 506.0400, L501.9520, L502.0250, L501.64222, L100.0100, L500.4100, L500.4050 #### [facility] [address] [place], [address] Platelets (Bld) [#/Vol] 241 10*3/uL Normal 150-450 [facility] Comment on above: Performed By: #### L 506.0400, L501.9520, L502.0250, L501.11767, L100.0100, L500.4100, L500.4050 #### [facility] [address] [place], [address] RBC (Bld) [#/Vol] 4.05 10*6/uL Low 4.2-5.4 [facility] Comment on above: Performed By: #### L 506.0400, L501.9520, L502.0250, L501.45928, L100.0100, L500.4100, L500.4050 #### [facility] [address] [place], [address] RDW SD 46.2 fl High 35.1-43.9 [facility] Comment on above: Performed By: #### L 506.0400, L501.9520, L502.0250, L501.77876, L100.0100, L500.4100, L500.4050 #### [facility] [address] [place], [address] WBC (Bld) [#/Vol] 3.5 10*3/uL Low 4.4-11.0 [facility] Comment on above: Performed By: #### L 506.0400, L501.9520, L502.0250, L501.41377, L100.0100, L500.4100, L500.4050 #### [facility] [address] [place], [place], [id number] Calculated very low density lipoprotein (VLDL) cholesterol measurementOrdered By: Cachorro Whitney on 12-28-2024 Calculated very low density lipoprotein (VLDL) cholesterol measurement 20 mg/dL 5-40 [facility] Carbon dioxide, total [Moles /volume] in Central venous bloodOrdered By: Cachorro Whitney on 12-28-2024 CO2 [Moles/Vol] 23.5 mmol/L 21.0-32.0 [facility] Chloride assayOrdered By: Salvador Whitney on 12-28-2024 Chloride [Moles/Vol] 107 mmol/L 98-108 [facility] Comprehensive Metabolic Prof ilon 12-28-2024 Albumin [Mass/Vol] 4.2 g/dL Normal 3.4-4.8 [facility] Comment on above: Performed By: #### L 506.0400, L501.9520, L502.0250, L501.40461, L100.0100, L500.4100, L500.4050 #### [facility] [address] [place], [address] Albumin/Globulin [Mass ratio] 1.7 {ratio} Normal 0.9-2.4 [facility] Comment on above: Performed By: #### L 506.0400, L501.9520, L502.0250, L501.62750, L100.0100, L500.4100, L500.4050 #### [facility] [address] [place], [address] ALK PHOS 63 U/L Normal 35-104 [facility] Comment on above: Performed By: #### L 506.0400, L501.9520, L502.0250, L501.62530, L100.0100, L500.4100, L500.4050 #### [facility] [address] [place], [address] ALT [Catalytic activity/Vol] 16 U/L Normal <=34 [facility] Comment on above: Performed By: #### L 506.0400, L501.9520, L502.0250, L501.78641, L100.0100, L500.4100, L500.4050 #### [facility] [address] [place], [address] AST [Catalytic activity/Vol] 18 U/L Normal <=31 [facility] Comment on above: Performed By: #### L 506.0400, L501.9520, L502.0250, L501.09229, L100.0100, L500.4100, L500.4050 #### [facility] [address] [place], [address] Bilirubin [Mass/Vol] 0.31 mg/dL Normal 0.00-1.30 [facility] Comment on above: Performed By: #### L 506.0400, L501.9520, L502.0250, L501.58829, L100.0100, L500.4100, L500.4050 #### [facility] [address] [place], [address] BUN/CRE 13.1 RATIO Normal 10-20 [facility] Comment on above: Performed By: #### L 506.0400, L501.9520, L502.0250, L501.91844, L100.0100, L500.4100, L500.4050 #### [facility] [address] [place], [address] Calcium [Mass/Vol] 9.2 mg/dL Normal 7.6-11.0 [facility] Comment on above: Performed By: #### L 506.0400, L501.9520, L502.0250, L501.48876, L100.0100, L500.4100, L500.4050 #### [facility] [address] [place], [address] Chloride [Moles/Vol] 107 mmol/L Normal 98-108 [facility] Comment on above: Performed By: #### L 506.0400, L501.9520, L502.0250, L501.24440, L100.0100, L500.4100, L500.4050 #### [facility] [address] [place], [address] CO2 [Moles/Vol] 23.5 mmol/L Normal 21.0-32.0 [facility] Comment on above: Performed By: #### L 506.0400, L501.9520, L502.0250, L501.69046, L100.0100, L500.4100, L500.4050 #### [facility] [address] [place], [address] (693) Creatinine [Mass/Vol] 0.57 mg/dL Low 0.70-1.20 [facility] Comment on above: Performed By: #### L 506.0400, L501.9520, L502.0250, L501.06292, L100.0100, L500.4100, L500.4050 #### [facility] [address] [place], [address] (507) GAP 11 Normal 5-15 [facility] Comment on above: Performed By: #### L 506.0400, L501.9520, L502.0250, L501.84725, L100.0100, L500.4100, L500.4050 #### [facility] [address] [place], [address] (765) GFR/1.73 sq M.predicted among non-blacks MDRD (S/P/Bld) [Vol rate/Area] 92 mL/min/{1.73_m2} Normal >60 [facility] Comment on above: Result Comment: mL/m in/1.73m2 CKD-EPI Creatinine Equation (2020) Performed By: #### L 506.0400, L501.9520, L502.0250, L501.09177, L100.0100, L500.4100, L500.4050 #### [facility] [address] [place], [address] (086) Globulin (S) [Mass/Vol] 2.5 g/dL Normal 2.2-4.2 [facility] Comment on above: Performed By: #### L 506.0400, L501.9520, L502.0250, L501.67816, L100.0100, L500.4100, L500.4050 #### [facility] [address] [place], [address] Glucose [Mass/Vol] 103 mg/dL High 70-99 [facility] Comment on above: Performed By: #### L 506.0400, L501.9520, L502.0250, L501.38107, L100.0100, L500.4100, L500.4050 #### [facility] [address] [place], [address] Potassium [Moles/Vol] 3.8 mmol/L Normal 3.3-5.1 [facility] Comment on above: Performed By: #### L 506.0400, L501.9520, L502.0250, L501.61591, L100.0100, L500.4100, L500.4050 #### [facility] [address] [place], [address] Sodium [Moles/Vol] 141 mmol/L Normal 133-145 [facility] Comment on above: Performed By: #### L 506.0400, L501.9520, L502.0250, L501.49263, L100.0100, L500.4100, L500.4050 #### [facility] [address] [place], [address] T PROT 6.7 g/dL Normal 5.9-8.4 [facility] Comment on above: Performed By: #### L 506.0400, L501.9520, L502.0250, L501.23857, L100.0100, L500.4100, L500.4050 #### [facility] [address] [place], [address] Urea nitrogen [Mass/Vol] 7 mg/dL Normal 4-19 [facility] Comment on above: Performed By: #### L 506.0400, L501.9520, L502.0250, L501.44981, L100.0100, L500.4100, L500.4050 #### [facility] [address] [place], [address] Eosinophil percentageOrdered By: Cachorro Whitney on 12-28-2024 Eosinophils/100 WBC (Bld) 4.0 % 0-5 [facility] Erythrocyte distribution wid th ratioOrdered By: Cachorro Whitney on 12-28-2024 Erythrocyte distribution width (RBC) [Ratio] 18.7 % High 11.6-14.6 [facility] Erythrocyte distribution wid th standard deviationOrdered By: Cachorro Whitney on 12-28-2024 Erythrocyte distribution width (RBC) [Ratio] 46.2 fl High 35.1-43.9 [facility] Free T3on 12-28-2024 Free T3 [Mass/Vol] 2.6 pg/mL Normal 2.18-3.98 [facility] Comment on above: Performed By: #### L 506.0400, L501.9520, L502.0250, L501.81446, L100.0100, L500.4100, L500.4050 ####[facility] [address] [place], [place], [id number] Free R7Iynmwph By: Cachorro kim on 12-28-2024 Free T3 [Mass/Vol] 2.6 pg/mL 2.18-3.98 [facility] Glomerular filtration rate ( GFR) estimation/1.73 sq m using serum, plasma, or whole bOrdered By: Cachorro Whitney on 12-28-2024 GFR/1.73 sq M.predicted among non-blacks MDRD (S/P/Bld) [Vol rate/Area] 92 mL/min/{1.73_m2} >60 [facility] Comment on above: mL/min/1.73m2 CKD-EP I Creatinine Equation (2021) Hematocrit Auto (Bld) [Volum e fraction]Ordered By: Cachorro Whitney on 12-28-2024 Hematocrit (Bld) [Volume fraction] 27.8 % Low 37-47 [facility] Hemoglobin measurementOrdere d By: Cachorro Whitney on 12-28-2024 Hemoglobin (Bld) [Mass/Vol] 8.2 g/dL Low 12.0-15.0 [facility] Immature granulocytes/100 WB C Auto (Bld)Ordered By: Cachorro Whitney on 12-28-2024 Immature granulocytes/100 WBC (Bld) 0.000 % 0.0-0.9 [facility] Comment on above: IG% - Immature Granu locytes (promyelocytes, myelocytes and metamyelocytes) > 1% indicates that a LEFT SHIFT is Present. LDL calc ser/plasOrdered By: Cachorro Whitney on 12-28-2024 Cholesterol in LDL [Mass/Vol] 167 mg/dL [facility] Comment on above: Ddlikejcoy=966-700 m g/dL & Higher Frpn=033 mg/dL or greater Laboratory - Chemistry and C hemistry - challengeOrdered By: Cachorro Whitney on 12-28-2024 AST [Catalytic activity/Vol] 18 U/L <32 [facility] Lipid Profileon 12-28-2024 CHOL:HDL 3.59 Normal [facility] Comment on above: Performed By: #### L 506.0400, L501.9520, L502.0250, L501.44634, L100.0100, L500.4100, L500.4050 ####[facility] [address] [place], [place], [id number] Cholesterol [Mass/Vol] 259 mg/dL High <=200 [facility] Comment on above: Result Comment: Chol esterol level, Desirable <200 mg/dL Borderline high cholesterol 200-239 mg/dL High cholesterol >=240 mg/dL Recommendations of the NCEP Adult Treatment Panel for the following risk-cutoff thresholds for the [place] population. Performed By: #### L 506.0400, L501.9520, L502.0250, L501.49765, L100.0100, L500.4100, L500.4050 ####[facility] [address] [place], [address] Cholesterol in HDL [Mass/Vol] 72 mg/dL Normal [facility] Comment on above: Result Comment: Cassie onal Cholesterol Education Program (NCEP) guidelines: <40 mg/dL: Low HDL-cholesterol (major risk factor for CHD) >= 60 mg/dL: High HDL-cholesterol (negative risk factor for CHD) HDL-cholesterol is affected by a number of factors, e.g. smoking, exercise, hormones, sex and age. Performed By: #### L 506.0400, L501.9520, L502.0250, L501.79981, L100.0100, L500.4100, L500.4050 ####[facility] [address] [place], [address] Cholesterol in LDL [Mass/Vol] 167 mg/dL Normal [facility] Comment on above: Result Comment: Bord zicvci=413-259 mg/dL Higher Xxhf=019 mg/dL or greater Performed By: #### L 506.0400, L501.9520, L502.0250, L501.21475, L100.0100, L500.4100, L500.4050 ####[facility] [address] [place], [address] Cholesterol in VLDL [Mass/Vol] 20 mg/dL Normal 5-40 [facility] Comment on above: Performed By: #### L 506.0400, L501.9520, L502.0250, L501.49287, L100.0100, L500.4100, L500.4050 ####[facility] [address] [place], [address] Triglyceride [Mass/Vol] 98 mg/dL Normal [facility] Comment on above: Result Comment: The drugs N-Acetylcysteine and Metamizole may falsely depress this assay. Normal range: <150 mg/dL Borderline High: 150-199 mg/dL High: 200-499 mg/dL Very High: >500 mg/dL Performed By: #### L 506.0400, L501.9520, L502.0250, L501.46131, L100.0100, L500.4100, L500.4050 ####[facility] [address] [place], [place], [phone] MCV (mean corpuscular volume ) determinationOrdered By: Cachorro Whitney on 12-28-2024 MCV (RBC) [Entitic vol] 68.6 fL Low 81-99 [facility] Mean corpuscular hemoglobin (MCH) determinationOrdered By: Cachorro Whitney on 12-28-2024 MCH (RBC) [Entitic mass] 20.2 pg Low 27.0-32.0 [facility] Mean corpuscular hemoglobin concentration (MCHC) determinationOrdered By: Cachorro Whitney on 12-28-2024 MCHC (RBC) [Mass/Vol] 29.5 g/dL Low 32-36 [facility] Mean platelet volume determi nationOrdered By: Cachorro Whitney on 12-28-2024 Platelet mean volume (Bld) [Entitic vol] 10.0 fL 6.2-12.0 [facility] Microalb:Creat Ratio,Random URon 12-28-2024 Creatinine [Mass/Vol] 32.20 mg/dL Normal 28.00-217.00 [facility] Comment on above: Performed By: #### L 506.0400, L501.9520, L502.0250, L501.24559, L100.0100, L500.4100, L500.4050 #### [facility] [address] [place], [address] MALB:CREAT UNABLE TO CALCULATE Normal [facility] Comment on above: Performed By: #### L 506.0400, L501.9520, L502.0250, L501.31280, L100.0100, L500.4100, L500.4050 #### [facility] [address] [place], [place], [id number] MICROALBUMIN,UR < 12.0 Normal NO RANGE EST. [facility] Comment on above: Performed By: #### L 506.0400, L501.9520, L502.0250, L501.18782, L100.0100, L500.4100, L500.4050 #### [facility] [address] [place], [address] Microalbumin/creat ratio urO rdered By: Cachorro Whitney on 12-28-2024 Urine microalbumin/creatinine ratio measurement UNABLE TO CALCULATE mg/g CRE [facility] Monocyte percentageOrdered B y: Cachorro Whitney on 12-28-2024 Monocytes/100 WBC (Bld) 9.0 % 0-10 [facility] Neutrophil percentageOrdered By: Cachorro Whitney on 12-28-2024 Neutrophils/100 WBC (Bld) 56.5 % 47-70 [facility] Nucleated red blood cell per centageOrdered By: Cachorro Whitney on 12-28-2024 Nucleated RBC/100 WBC (Bld) [Ratio] 0 % 0-5 [facility] Platelet countOrdered By: Salvador Whitney on 12-28-2024 Platelets (Bld) [#/Vol] 241 10*3/uL 150-450 [facility] Potassium measurement (mass/ volume)Ordered By: Cachorro Whitney on 12-28-2024 Potassium (Unsp spec) [Mass/Vol] 3.8 mmol/L 3.3-5.1 [facility] RBC Auto (Bld) [#/Vol]Ordere d By: Cachorro Whitney on 12-28-2024 RBC (Bld) [#/Vol] 4.05 10*6/uL Low 4.2-5.4 [facility] Random urine creatinine arya urement (mass/volume)Ordered By: Cachorro Whitney on 12-28-2024 Creatinine Unsp time (U) [Mass/Vol] 32.20 mg/dL 28.00-217.00 [facility] Screening total cholesterol/ high density lipoprotein (HDL) cholesterol ratioOrdered By: Cachorro Whitney on 12-28-2024 Cholesterol.total/Cholest edi in HDL [Mass ratio] 3.59 {ratio} [facility] Serum creatinine measurement (mass/volume)Ordered By: Cachorro Whitney on 12-28-2024 Creatinine [Mass/Vol] 0.57 mg/dL Low 0.70-1.20 [facility] Serum globulin measurementOr dered By: Cachorro Whitney on 12-28-2024 Globulin (S) [Mass/Vol] 2.5 g/dL 2.2-4.2 [facility] Serum glucose measurement (m ass/volume)Ordered By: Cachorro Whitney on 12-28-2024 Glucose [Mass/Vol] 103 mg/dL High 70-99 [facility] Serum or plasma alanine morejon otransferase (ALT) measurementOrdered By: Cachorro Whitney on 12-28-2024 ALT [Catalytic activity/Vol] 16 U/L <35 [facility] Serum or plasma albumin arya urement (mass/volume)Ordered By: Cachorro Whitney on 12-28-2024 Albumin [Mass/Vol] 4.2 g/dL 3.4-4.8 [facility] Serum or plasma albumin/glob ulin mass ratioOrdered By: Cachorro Whitney on 12-28-2024 Albumin/Globulin [Mass ratio] 1.7 {ratio} 0.9-2.4 [facility] Serum or plasma alkaline altagracia sphatase measurementOrdered By: Cachorro Whitney on 12-28-2024 ALP [Catalytic activity/Vol] 63 U/L 35-104 [facility] Serum or plasma calcium arya urement (mass/volume)Ordered By: Cachorro Whitney on 12-28-2024 Calcium [Mass/Vol] 9.2 mg/dL 7.6-11.0 [facility] Serum or plasma cholesterol in HDL measurement (mass/volume)Ordered By: Cachorro Whitney on 12-28-2024 Cholesterol in HDL [Mass/Vol] 72 mg/dL >40 [facility] Comment on above: National Cholesterol Education Program (NCEP) guidelines:<40 mg/dL: Low HDL-cholesterol (major risk factor for CHD)>= 60 mg/dL: High HDL-cholesterol (negative risk factor for CHD)HDL-cholesterol is affected by a number of factors, e.g. smoking, exercise, hormones, sex and age. Serum or plasma cholesterol measurement (mass/volume)Ordered By: Cachorro Whitney on 12-28-2024 Cholesterol [Mass/Vol] 259 mg/dL High <201 [facility] Comment on above: Cholesterol level, D esirable <200 mg/dLBorderline high cholesterol 200-239 mg/dLHigh cholesterol >=240 mg/dLRecommendations of the NCEP Adult Treatment Panel for the following risk-cutoff thresholds for the [place] population. Serum or plasma urea nitroge n measurement (mass/volume)Ordered By: Cachorro Whitney on 12-28-2024 Urea nitrogen [Mass/Vol] 7 mg/dL 4-19 [facility] Sodium levelOrdered By: Cachorro Whitney on 12-28-2024 Sodium [Moles/Vol] 141 mmol/L 133-145 [facility] T4 Free Directon 12-28-2024 T4 FREE DIRECT 1.30 ng/dL Normal 0.76-1.46 [facility] Comment on above: Performed By: #### L 506.0400, L501.9520, L502.0250, L501.57190, L100.0100, L500.4100, L500.4050 ####[facility] [address] [place], [place], [id number] T4 freeOrdered By: Cachorro kim on 12-28-2024 Free T4 [Mass/Vol] 1.30 ng/dL 0.76-1.46 [facility] TSH DL <= 0.005 mIU/L QnOrde red By: Cachorro Whitney on 12-28-2024 TSH Qn 1.220 uIU/mL 0.300-4.200 [facility] Thyroid Stim Hormone (TSH)on 12-28-2024 TSH 1.220 uIU/mL Normal 0.300-4.200 [facility] Comment on above: Performed By: #### L 506.0400, L501.9520, L502.0250, L501.22205, L100.0100, L500.4100, L500.4050 ####[facility] [address] [place], [place], [id number] Total proteinOrdered By: Erinn Whitney on 12-28-2024 Protein [Mass/Vol] 6.7 g/dL 5.9-8.4 [facility] Triglycerides measurementOrd ered By: Cachorro Whitney on 12-28-2024 Triglyceride [Mass/Vol] 98 mg/dL <199 [facility] Comment on above: The drugs N-Acetylcy steine and Metamizole may falsely depress this assay. Normal range: <150 mg/dLBorderline High: 150-199 mg/dLHigh: 200-499 mg/dLVery High: >500 mg/dL Urine albumin measurement wi th detection limit of 20 mg/L or less (mass/volume)Ordered By: Cachorro Whitney on 12-28-2024 Albumin DL <= 20 mg/L (U) [Mass/Vol] < 12.0 mg/L NO RANGE EST. [facility] White blood cell (WBC) count Ordered By: Cachorro Whitney on 12-28-2024 WBC (Bld) [#/Vol] 3.5 10*3/uL Low 4.4-11.0 [facility] Urine Cultureon 09-08-2024 URC Klebsiella pneumoniae sp pneum [place] Count 80,000-100,000 Klebsiella pneumoniae sp pneum: REACTION Ampicillin Islt SHAY Ampicillin+Sulbac Islt SHAY 4 S Cefepime Islt SHAY <=0.12 S cefTRIAXone Islt SHAY <=0.25 S Ciprofloxacin Islt SHAY <=0.06 S B-Lactamase Extended Susc Islt NEG Gentamicin Islt SHAY <=1 S levoFLOXacin Islt SHAY <=0.12 S Meropenem Islt SHAY <=0.25 S Nitrofurantoin Islt SHAY <=16 S Pip+Tazo Islt SHAY <=4 S TMP SMX Islt SHAY <=20 S Normal [facility] Comment on above: Performed By: #### M 100.9573 ####[facility] [address] [place], [address] Urine cultureOrdered By: Brittni Calderon on 09-06-2024 Bacteria identified Cx Nom (U) Klebsiella pneumoniae sp pneum Abnormal [facility] Comprehensive Metabolic Prof ilon 07-01-2024 Albumin [Mass/Vol] 3.7 g/dL Normal 3.2-5.0 [facility] Comment on above: Performed By: #### L 506.0400, L501.24098, L500.4050, L500.4100, L501.9520 #### [facility] [address] [place], [address] Albumin/Globulin [Mass ratio] 1.1 {ratio} Normal 0.9-2.4 [facility] Comment on above: Performed By: #### L 506.0400, L501.04636, L500.4050, L500.4100, L501.9520 #### [facility] [address] [place], [address] ALK P 63 U/L Normal 45-117 [facility] Comment on above: Performed By: #### L 506.0400, L501.11816, L500.4050, L500.4100, L501.9520 #### [facility] [address] [place], [address] ALT [Catalytic activity/Vol] 20 U/L Normal 13-56 [facility] Comment on above: Performed By: #### L 506.0400, L501.78338, L500.4050, L500.4100, L501.9520 #### [facility] [address] [place], [address] AST [Catalytic activity/Vol] 16 U/L Normal 15-37 [facility] Comment on above: Performed By: #### L 506.0400, L501.22845, L500.4050, L500.4100, L501.9520 #### [facility] [address] [place], [address] Bilirubin [Mass/Vol] 0.40 mg/dL Normal 0.20-1.00 [facility] Comment on above: Result Comment: For patients on eltrombopag therapy, use of Dimension [place] TBIL is not recommended. Performed By: #### L 506.0400, L501.24796, L500.4050, L500.4100, L501.9520 #### [facility] [address] [place], [address] BUN/CRE 19.1 RATIO Normal 10-20 [facility] Comment on above: Performed By: #### L 506.0400, L501.14183, L500.4050, L500.4100, L501.9520 #### [facility] [address] [place], [address] CA,Total 9.4 mg/dL Normal 8.5-10.1 [facility] Comment on above: Performed By: #### L 506.0400, L501.77324, L500.4050, L500.4100, L501.9520 #### [facility] [address] [place], [address] Chloride [Moles/Vol] 106 mmol/L Normal 98-107 [facility] Comment on above: Performed By: #### L 506.0400, L501.14563, L500.4050, L500.4100, L501.9520 #### [facility] [address] [place], [address] CO2 [Moles/Vol] 26.0 mmol/L Normal 21.0-32.0 [facility] Comment on above: Performed By: #### L 506.0400, L501.85696, L500.4050, L500.4100, L501.9520 #### [facility] [address] [place], [address] Creatinine [Mass/Vol] 0.58 mg/dL Normal 0.55-1.02 [facility] Comment on above: Result Comment: The validity of the calculated GFR GFRAA in patients over 70 years has not been determined. Clinical correlation is essential. Performed By: #### L 506.0400, L501.12178, L500.4050, L500.4100, L501.9520 #### [facility] [address] [place], [address] EST GFR - AA 130 mL/min Normal >60 [facility] Comment on above: Result Comment: Afri can Spanish GFR Calc Performed By: #### L 506.0400, L501.01679, L500.4050, L500.4100, L501.9520 #### [facility] [address] [place], [address] GAP 6 Normal 5-15 [facility] Comment on above: Performed By: #### L 506.0400, L501.24716, L500.4050, L500.4100, L501.9520 #### [facility] [address] [place], [address] GFR/1.73 sq M.predicted among non-blacks MDRD (S/P/Bld) [Vol rate/Area] 107 mL/min/{1.73_m2} Normal >60 [facility] Comment on above: Result Comment: Non- GFR Calc Performed By: #### L 506.0400, L501.62167, L500.4050, L500.4100, L501.9520 #### [facility] [address] [place], [address] Globulin (S) [Mass/Vol] 3.5 g/dL Normal 2.2-4.2 [facility] Comment on above: Performed By: #### L 506.0400, L501.40993, L500.4050, L500.4100, L501.9520 #### [facility] [address] [place], [address] Glucose [Mass/Vol] 148 mg/dL High 74-106 [facility] Comment on above: Result Comment: Fast ing Glucose result greater than or equal to 126 mg/dL suggests DIABETES MELLITUS per A.D.A. criteria. Performed By: #### L 506.0400, L501.57193, L500.4050, L500.4100, L501.9520 #### [facility] [address] [place], [address] Potassium [Moles/Vol] 4.0 mmol/L Normal 3.5-5.1 [facility] Comment on above: Performed By: #### L 506.0400, L501.57168, L500.4050, L500.4100, L501.9520 #### [facility] [address] [place], [address] Sodium [Moles/Vol] 138 mmol/L Normal 136-145 [facility] Comment on above: Performed By: #### L 506.0400, L501.79714, L500.4050, L500.4100, L501.9520 #### [facility] [address] [place], [address] T PROT 7.2 g/dL Normal 6.4-8.2 [facility] Comment on above: Performed By: #### L 506.0400, L501.95379, L500.4050, L500.4100, L501.9520 #### [facility] [address] [place], [address] Urea nitrogen [Mass/Vol] 11 mg/dL Normal 7-18 [facility] Comment on above: Performed By: #### L 506.0400, L501.39682, L500.4050, L500.4100, L501.9520 #### [facility] [address] [place], [address] Free T3on 07-01-2024 Free T3 [Mass/Vol] 2.6 pg/mL Normal 2.18-3.98 [facility] Comment on above: Performed By: #### L 506.0400, L501.26426, L500.4050, L500.4100, L501.9520 #### [facility] [address] [place], [address] Lipid Profileon 07-01-2024 Cholesterol [Mass/Vol] 260 mg/dL High 200 [facility] Comment on above: Result Comment: <200 mg/dL Desirable 200-240 mg/dL Borderline >240 mg/dL High Risk Performed By: #### L 506.0400, L501.91361, L500.4050, L500.4100, L501.9520 #### [facility] [address] [place], [address] Cholesterol in HDL [Mass/Vol] 73 mg/dL Normal [facility] Comment on above: Result Comment: The drugs N-Acetylcysteine and Metamizole may falsely depress this assay. Reference Range HDL <40 mg/dL Low HDL Cholesterol HDL >or= 60 mg/dL High HDL Cholesterol Performed By: #### L 506.0400, L501.02049, L500.4050, L500.4100, L501.9520 #### [facility] [address] [place], [address] Cholesterol in LDL [Mass/Vol] 161 mg/dL High 0-130 [facility] Comment on above: Performed By: #### L 506.0400, L501.72985, L500.4050, L500.4100, L501.9520 #### [facility] [address] [place], [address] Cholesterol in VLDL [Mass/Vol] 26 mg/dL Normal 5-40 [facility] Comment on above: Performed By: #### L 506.0400, L501.64095, L500.4050, L500.4100, L501.9520 #### [facility] [address] [place], [address] Triglyceride [Mass/Vol] 129 mg/dL Normal [facility] Comment on above: Result Comment: The drugs N-Acetylcysteine and Metamizole may falsely depress this assay. Serum Triglycerides Reference Interval Normal <150 mg/dL Borderline high 150 - 199 mg/dL High 200 - 499 mg/dL Very High > or = 500 mg/dL Performed By: #### L 506.0400, L501.62125, L500.4050, L500.4100, L501.9520 #### [facility] [address] [place], [address] T4 Free Directon 07-01-2024 T4 FREE DIRECT 1.11 ng/dL Normal 0.76-1.46 [facility] Comment on above: Performed By: #### L 506.0400, L501.58773, L500.4050, L500.4100, L501.9520 #### [facility] [address] [facility] [place], [address] Thyroid Stim Hormone (TSH)on 07-01-2024 TSH 1.520 uIU/mL Normal 0.358-3.740 [facility] Comment on above: Performed By: #### L 506.0400, L501.58089, L500.4050, L500.4100, L501.9520 #### [facility] [address] [place], [address] SCRN MAMM (CAD)W/BRITTNEY BILATo n 03-18-2024 SCRN MAMM (CAD)W/BRITTNEY BILAT [facility] Imaging Services [address] [place] [address] SCRN MAMM (CAD)W/BRITTNEY BILAT MR#: [id number] Acct: [id number] Name: KARIE PLASCENCIA Rep #: [id number] : 1945 F 79 From: Pillo pathak MD PCP: Dr. Cachorro Whitney MD Status: [facility] CLI Study: SCRN MAMM (CAD)W/BRITTNEY BILAT Date of Exam: 02/22 02/14 Exam# [id number] Ordering Dr: Cachorro Whitney MD -[id number] MAMMOGRAPHY - BILATERAL SCREENING REASON FOR EXAM: Female, 79 years old. Routine annual screening examination. PERTINENT HISTORY: Non-contributory. TECHNIQUE: Digital bilateral breast brittney (3D mammographic acquisition) in the CC and MLO projections. 2-D mediolateral oblique (MLO) and craniocaudad (CC) views of both breasts were obtained. CAD: Full Field Digital Mammography with Computer Added Detection was performed. COMPARISON: Comparison is made with prior study dated July 30, 2022 and May 01, 2020. FINDINGS: Breast Composition: There are scattered areas of fibroglandular density. There are no dominant masses or suspicious calcifications. No other significant abnormalities are identified. There has been no significant change since the prior study. BI/SCRN MAMM (CAD)W/BRITTNEY BILAT IMPRESSION: Stable bilateral screening mammogram. Yearly follow-up mammogram recommended. (A) ASSESSMENT CATEGORY: BIRADS Category 1: Negative. A letter regarding these results will be sent to the patient by the facility within 30 days. Approximately 10% of breast cancers are not detected by mammography. A normal mammogram should not delay biopsy of a clinically suspicious abnormality. [id number] Electronically Signed: Pillo Diaz MD at 8:40 EDT , CC: Dr. Cachorro Whitney MD Patient Transition Specialist: Signed Normal [facility] Absolute lymphocyte countOrd ered By: Cachorro Whitney on 12-28-2023 Lymphocytes Auto (Unsp spec) [#/Vol] 1.15 10*3/uL 0.83-4.51 [facility] Automated lymphocyte count a s percentage of total leukocytesOrdered By: Cachorro Whitney on 12-28-2023 Lymphocytes/100 WBC Auto (Unsp spec) 27.7 % 19-41 [facility] Basophil percentageOrdered B y: Cachorro Whitney on 12-28-2023 Basophils/100 WBC (Bld) 0.7 % 0-1 [facility] Bilirubin [Mass/Vol] 0.40 mg/dL 0.20-1.00 [facility] Comment on above: For patients on eltr ombopag therapy, use of Dimension [place] TBIL is not recommended. Chloride [Moles/Vol] 107 mmol/L 98-107 [facility] Cholesterol [Mass/Vol] 319 mg/dL <200 [facility] Comment on above: <200 mg/dL Desirable 200-240 mg/dL Borderline >240 mg/dL High Risk Eosinophils/100 WBC (Bld) 7.0 % 0-5 [facility] Glucose [Mass/Vol] 143 mg/dL 74-106 [facility] Comment on above: Fasting Glucose resu lt greater than or equal to 126 mg/dL suggests DIABETES MELLITUS per A.D.A. criteria. Hemoglobin (Bld) [Mass/Vol] 10.1 g/dL 12.0-15.0 [facility] Monocytes/100 WBC (Bld) 8.7 % 0-10 [facility] Neutrophils (Bld) [#/Vol] 2.3 10*3/uL 2.0-7.7 [facility] Neutrophils/100 WBC (Bld) 55.7 % 47-70 [facility] Potassium [Moles/Vol] 3.8 mmol/L 3.5-5.1 [facility] Protein [Mass/Vol] 7.2 g/dL 6.4-8.2 [facility] Sodium [Moles/Vol] 140 mmol/L 136-145 [facility] Triglyceride [Mass/Vol] 116 mg/dL <199 [facility] Comment on above: The drugs N-Acetylcy steine and Metamizole may falsely depress this assay.Serum Triglycerides Reference Interval Normal <150 mg/dL Borderline high 150 - 199 mg/dL High 200 - 499 mg/dL Very High > or = 500 mg/dL WBC (Bld) [#/Vol] 4.2 10*3/uL 4.4-11.0 [facility] Determination of erythrocyte mean corpuscular volume (MCV)Ordered By: Cachorro Whitney on 12-28-2023 MCV (RBC) [Entitic vol] 72.9 fL 81-99 [facility] Erythrocyte distribution wid th ratioOrdered By: Cachorro Whitney on 12-28-2023 Erythrocyte distribution width (RBC) [Ratio] 19.0 % 11.6-14.6 [facility] Erythrocyte distribution wid th standard deviationOrdered By: Cachorro Whitney on 12-28-2023 Erythrocyte distribution width (RBC) [Entitic vol] 49.3 fL 35.1-43.9 [facility] Hematocrit Auto (Bld) [Volum e fraction]Ordered By: Cachorro Whitney on 12-28-2023 Hematocrit (Bld) [Volume fraction] 34.1 % 37-47 [facility] Immature granulocytes/100 WB C Auto (Bld)Ordered By: Cachorro Whitney on 12-28-2023 Immature granulocytes/100 WBC (Bld) 0.200 % 0.0-0.9 [facility] Comment on above: IG% - Immature Granu locytes (promyelocytes, myelocytes and metamyelocytes) > 1% indicates that a LEFT SHIFT is Present. Laboratory - Chemistry and C hemistry - challengeOrdered By: Cachorro Whitney on 12-28-2023 Albumin/Globulin [Mass ratio] 1.2 {ratio} 0.9-2.4 [facility] ALP [Catalytic activity/Vol] 57 U/L 45-117 [facility] ALT [Catalytic activity/Vol] 20 U/L 13-56 [facility] Cholesterol in HDL [Mass/Vol] 84 mg/dL >40 [facility] Comment on above: The drugs N-Acetylcy steine and Metamizole may falsely depress this assay. Reference Range HDL <40 mg/dL Low HDL Cholesterol HDL >or= 60 mg/dL High HDL Cholesterol Cholesterol in LDL [Mass/Vol] 212 mg/dL 0-130 [facility] CO2 [Moles/Vol] 27.0 mmol/L 21.0-32.0 [facility] Globulin (S) [Mass/Vol] 3.3 g/dL 2.2-4.2 [facility] Urea nitrogen/Creatinine [Mass ratio] 11.5 mg/mg 10-20 [facility] Laboratory - Hematology and Cell countsOrdered By: Cachorro Whitney on 12-28-2023 MCH (RBC) [Entitic mass] 21.6 pg 27.0-32.0 [facility] MCHC (RBC) [Mass/Vol] 29.6 g/dL 32-36 [facility] Nucleated RBC/100 WBC (Bld) [Ratio] 0 % 0-5 [facility] Platelet mean volume (Bld) [Entitic vol] 10.1 fL 6.2-12.0 [facility] Platelets (Bld) [#/Vol] 264 10*3/uL 150-450 [facility] No Panel InformationOrdered By: Cachorro Whitney on 12-28-2023 Estimated GFR (MDRD) Amer 122 mL/min >60 [facility] Comment on above: GFR Calc Estimated GFR (MDRD) Non-Af Amer 101 mL/min >60 [facility] Comment on above: Non- GFR Calc Free Triiodothyronine (T3) pg/dL 2.6 pg/mL 2.18-3.98 [facility] VLDL Cholesterol 23 mg/dL 5-40 [facility] RBC Auto (Bld) [#/Vol]Ordere d By: Cachorro Whitney on 12-28-2023 RBC (Bld) [#/Vol] 4.68 10*6/uL 4.2-5.4 [facility] Serum or plasma calcium arya urement (mass/volume)Ordered By: Cachorro Whitney on 12-28-2023 Calcium [Mass/Vol] 9.1 mg/dL 8.5-10.1 [facility] Serum or plasma creatinine m easurement (mass/volume)Ordered By: Cachorro Whitney on 12-28-2023 Creatinine [Mass/Vol] 0.61 mg/dL 0.55-1.02 [facility] Comment on above: The validity of the calculated GFR & GFRAA in patients over 70 years has not been determined. Clinical correlation is essential. Serum or plasma thyroid stim ulating hormone (TSH) measurement (units/volume)Ordered By: Cachorro Whitney on 12-28-2023 TSH Qn 2.33 uIU/mL 0.358-3.74 [facility] Serum or plasma urea nitroge n measurement (mass/volume)Ordered By: Cachorro Whitney on 12-28-2023 Urea nitrogen [Mass/Vol] 7 mg/dL 7-18 [facility] Thin prep Papanicolaou smear with manual screeningOrdered By: Cachorro Whitney on 12-28-2023 Thin prep Papanicolaou smear with manual screening 3.9 g/dL 3.2-5.0 [facility] Thin prep Papanicolaou smear with manual screening 16 U/L 15-37 [facility] Thin prep Papanicolaou smear with manual screening 6 5-15 [facility] Thin prep Papanicolaou smear with manual screening 1.20 ng/dL 0.76-1.46 [facility] Basophil percentageOrdered B y: Cachorro Whitney on 06-26-2023 Chloride [Moles/Vol] 105 mmol/L 98-107 [facility] Cholesterol [Mass/Vol] 211 mg/dL <200 [facility] Comment on above: <200 mg/dL Desirable 200-240 mg/dL Borderline >240 mg/dL High Risk Glucose [Mass/Vol] 144 mg/dL 74-106 [facility] Comment on above: Fasting Glucose resu lt greater than or equal to 126 mg/dL suggests DIABETES MELLITUS per A.D.A. criteria. Potassium [Moles/Vol] 3.9 mmol/L 3.5-5.1 [facility] Sodium [Moles/Vol] 138 mmol/L 136-145 [facility] Triglyceride [Mass/Vol] 86 mg/dL <199 [facility] Comment on above: The drugs N-Acetylcy steine and Metamizole may falsely depress this assay.Serum Triglycerides Reference Interval Normal <150 mg/dL Borderline high 150 - 199 mg/dL High 200 - 499 mg/dL Very High > or = 500 mg/dL Laboratory - Chemistry and C hemistry - challengeOrdered By: Cachorro Whitney on 06-26-2023 CO2 [Moles/Vol] 27.0 mmol/L 21.0-32.0 [facility] Free T4 [Mass/Vol] 1.17 ng/dL 0.76-1.46 [facility] Urea nitrogen/Creatinine [Mass ratio] 19.1 mg/mg 10-20 [facility] No Panel InformationOrdered By: Cachorro Whitney on 06-26-2023 Estimated GFR (MDRD) Amer 107 mL/min >60 [facility] Comment on above: GFR Calc Estimated GFR (MDRD) Non-Af Amer 89 mL/min >60 [facility] Comment on above: Non- GFR Calc Free Triiodothyronine (T3) pg/dL 2.5 pg/mL 2.18-3.98 [facility] Thyroid Stimulating Hormone (TSH) 1.74 uIU/mL 0.358-3.74 [facility] Serum or plasma calcium arya urement (mass/volume)Ordered By: Cachorro Whitney on 06-26-2023 Calcium [Mass/Vol] 9.2 mg/dL 8.5-10.1 [facility] Serum or plasma cholesterol in HDL measurement (mass/volume)Ordered By: Cachorro Whitney on 06-26-2023 Cholesterol in HDL [Mass/Vol] 72 mg/dL >40 [facility] Comment on above: The drugs N-Acetylcy steine and Metamizole may falsely depress this assay. Reference Range HDL <40 mg/dL Low HDL Cholesterol HDL >or= 60 mg/dL High HDL Cholesterol Serum or plasma cholesterol in VLDL measurement (mass/volume)Ordered By: Cachorro Whitney on 06-26-2023 Cholesterol in VLDL [Mass/Vol] 17 mg/dL 5-40 [facility] Serum or plasma creatinine m easurement (mass/volume)Ordered By: Cachorro Whitney on 06-26-2023 Creatinine [Mass/Vol] 0.68 mg/dL 0.55-1.02 [facility] Comment on above: The validity of the calculated GFR & GFRAA in patients over 70 years has not been determined. Clinical correlation is essential. Serum or plasma low density lipoprotein (LDL) cholesterol measurement (mass/volume)Ordered By: Cachorro Whitney on 06-26-2023 Cholesterol in LDL [Mass/Vol] 122 mg/dL 0-130 [facility] Serum or plasma urea nitroge n measurement (mass/volume)Ordered By: Cachorro Whitney on 06-26-2023 Urea nitrogen [Mass/Vol] 13 mg/dL 7-18 [facility] Thin prep Papanicolaou smear with manual screeningOrdered By: Cachorro Whitney on 06-26-2023 Thin prep Papanicolaou smear with manual screening 6 5-15 [facility] Basophil percentageon 2021 Chloride [Moles/Vol] 106 mmol/L 98-107 [facility] Work [facility]: Cholesterol [Mass/Vol] 219 mg/dL <200 [facility] Work Phone: Comment on above: <200 mg/dL Desirable 200-240 mg/dL Borderline >240 mg/dL High Risk Glucose [Mass/Vol] 116 mg/dL 74-106 [facility] Work Phone: Comment on above: Fasting Glucose resu lt from 100 to 125 mg/dL suggests IMPAIRED HOMEOSTASIS per A.D.A. criteria. Potassium [Moles/Vol] 3.9 mmol/L 3.5-5.1 [facility] Work Phone: Sodium [Moles/Vol] 139 mmol/L 136-145 [facility] Work Phone: Triglyceride [Mass/Vol] 98 mg/dL <199 [facility] Work Phone: Comment on above: The drugs N-Acetylcy steine and Metamizole may falsely depress this assay.Serum Triglycerides Reference Interval Normal <150 mg/dL Borderline high 150 - 199 mg/dL High 200 - 499 mg/dL Very High > or = 500 mg/dL Laboratory - Chemistry and C hemistry - challengeon 06-25-2022 CO2 [Moles/Vol] 28.0 mmol/L 21.0-32.0 [facility] Work Phone: Free T4 [Mass/Vol] 1.04 ng/dL 0.76-1.46 [facility] Work Phone: Urea nitrogen/Creatinine [Mass ratio] 18.8 mg/mg 10-20 [facility] Work Phone: No Panel Informationon 06-25 Estimated GFR (MDRD) Amer 116 mL/min >60 [facility] Work Phone: Comment on above: GFR Calc Estimated GFR (MDRD) Non-Af Amer 96 mL/min >60 [facility] Work Phone: Comment on above: Non- GFR Calc Free Triiodothyronine (T3) pg/dL 2.5 pg/mL 2.18-3.98 [facility] Work Phone: Thyroid Stimulating Hormone (TSH) 1.75 uIU/mL 0.358-3.74 [facility] Work Phone: Urine Microalbumin/Creatinine Ratio 26.3 mg/g CRE <30 [facility] Work Phone: Serum or plasma calcium arya urement (mass/volume)on 06-25-2022 Calcium [Mass/Vol] 8.8 mg/dL 8.5-10.1 [facility] Work Phone: Serum or plasma cholesterol in HDL measurement (mass/volume)on 06-25-2022 Cholesterol in HDL [Mass/Vol] 78 mg/dL >40 [facility] Work Phone: Comment on above: The drugs N-Acetylcy steine and Metamizole may falsely depress this assay. Reference Range HDL <40 mg/dL Low HDL Cholesterol HDL >or= 60 mg/dL High HDL Cholesterol Serum or plasma cholesterol in VLDL measurement (mass/volume)on 06-25-2022 Cholesterol in VLDL [Mass/Vol] 20 mg/dL 5-40 [facility] Work Phone: Serum or plasma creatinine m easurement (mass/volume)on 06-25-2022 Creatinine [Mass/Vol] 0.64 mg/dL 0.55-1.02 [facility] Work Phone: Comment on above: The validity of the calculated GFR & GFRAA in patients over 70 years has not been determined. Clinical correlation is essential. Serum or plasma low density lipoprotein (LDL) cholesterol measurement (mass/volume)on 06-25-2022 Cholesterol in LDL [Mass/Vol] 121 mg/dL 0-130 [facility] Work Phone: Serum or plasma urea nitroge n measurement (mass/volume)on 06-25-2022 Urea nitrogen [Mass/Vol] 12 mg/dL 7-18 [facility] Work Phone: Thin prep Papanicolaou smear with manual screeningon 06-25-2022 Thin prep Papanicolaou smear with manual screening 5 5-15 [facility] Work Phone: Thin prep Papanicolaou smear with manual screening 8.5 mg/L NO RANGE EST. [facility] Work Phone: Urine creatinine measurement (mass/volume)on 06-25-2022 Creatinine (U) [Mass/Vol] 32.40 mg/dL NO RANGE EST. [facility] Work Phone: Basophil percentageon 2021 Basophil percentage >100 SEEN /hpf [facility] Work Phone: Chloride [Moles/Vol] 107 mmol/L 98-107 [facility] Work Phone: Cholesterol [Mass/Vol] 210 mg/dL <200 [facility] Work Phone: Comment on above: <200 mg/dL Desirable 200-240 mg/dL Borderline >240 mg/dL High Risk Glucose [Mass/Vol] 151 mg/dL 74-106 [facility] Work Phone: Comment on above: Fasting Glucose resu lt greater than or equal to 126 mg/dL suggests DIABETES MELLITUS per A.D.A. criteria. Potassium [Moles/Vol] 4.0 mmol/L 3.5-5.1 [facility] Work Phone: Sodium [Moles/Vol] 140 mmol/L 136-145 [facility] Work Phone: Triglyceride [Mass/Vol] 134 mg/dL [facility] Work Phone: Comment on above: The drugs N-Acetylcy steine and Metamizole may falsely depress this assay.Serum Triglycerides Reference Interval Normal <150 mg/dL Borderline high 150 - 199 mg/dL High 200 - 499 mg/dL Very High > or = 500 mg/dL Bilirubin Test strip Ql (U)o n 12-23-2021 Bilirubin Ql (U) Negative Negative [facility] Work Phone: Ketones Test strip Ql (U)on 12-23-2021 Ketones Ql (U) Negative Negative [facility] Work Phone: Laboratory - Chemistry and C hemistry - challengeon 12-23-2021 CO2 [Moles/Vol] 27.0 mmol/L 21.0-32.0 [facility] Work Phone: Free T4 [Mass/Vol] 1.10 ng/dL 0.76-1.46 [facility] Work Phone: Urea nitrogen/Creatinine [Mass ratio] 14.8 mg/mg 10-20 [facility] Work Phone: Mucus LM Ql (Urine sed)on Mucus Ql (Urine sed) 0 SEEN /hpf [facility] Work Phone: Nitrite Test strip Ql (U)on 12-23-2021 Nitrite Ql (U) Positive Negative [facility] Work Phone: No Panel Informationon 12-23 Estimated GFR (MDRD) Amer 122 mL/min >60 [facility] Work Phone: Comment on above: GFR Calc Estimated GFR (MDRD) Non-Af Amer 101 mL/min >60 [facility] Work Phone: Comment on above: Non- GFR Calc Free Triiodothyronine (T3) pg/dL 2.5 pg/mL 2.18-3.98 [facility] Work Phone: Thyroid Stimulating Hormone (TSH) 1.21 uIU/mL 0.358-3.74 [facility] Work Phone: Protein Test strip Ql (U)on 12-23-2021 Protein Ql (U) 15 mg/dl Negative [facility] Work Phone: Serum or plasma calcium arya urement (mass/volume)on 12-23-2021 Calcium [Mass/Vol] 8.7 mg/dL 8.5-10.1 [facility] Work Phone: Serum or plasma cholesterol in HDL measurement (mass/volume)on 12-23-2021 Cholesterol in HDL [Mass/Vol] 75 mg/dL [facility] Work Phone: Comment on above: The drugs N-Acetylcy steine and Metamizole may falsely depress this assay. Reference Range HDL <40 mg/dL Low HDL Cholesterol HDL >or= 60 mg/dL High HDL Cholesterol Serum or plasma cholesterol in VLDL measurement (mass/volume)on 12-23-2021 Cholesterol in VLDL [Mass/Vol] 27 mg/dL 5-40 [facility] Work Phone: Serum or plasma creatinine m easurement (mass/volume)on 12-23-2021 Creatinine [Mass/Vol] 0.61 mg/dL 0.55-1.02 [facility] Work Phone: Comment on above: The validity of the calculated GFR & GFRAA in patients over 70 years has not been determined. Clinical correlation is essential. Serum or plasma low density lipoprotein (LDL) cholesterol measurement (mass/volume)on 12-23-2021 Cholesterol in LDL [Mass/Vol] 108 mg/dL 0-130 [facility] Work Phone: Serum or plasma urea nitroge n measurement (mass/volume)on 12-23-2021 Urea nitrogen [Mass/Vol] 9 mg/dL 7-18 [facility] Work Phone: Squamous epithelial cells de tection in urine sediment by light microscopyon 12-23-2021 Epithelial cells.squamous LM Ql (Urine sed) 5-10 SEEN /hpf [facility] Work Phone: Thin prep Papanicolaou smear with manual screeningon 12-23-2021 Thin prep Papanicolaou smear with manual screening 6 5-15 [facility] Work Phone: Urine blood detectionon RBC Ql (U) 25 /ul Negative [facility] Work Phone: RBC Ql (U) 0 SEEN /hpf [facility] Work Phone: Urine clarityon 12-23-2021 Clarity (U) Sl. Cloudy Clear [facility] Work Phone: Urine color determinationon 12-23-2021 Color (U) Yellow Yellow [facility] Work Phone: Urine glucose detectionon Glucose Ql (U) Normal mg/dl Normal [facility] Work Phone: Urine leukocyte esterase det ection by dipstickon 12-23-2021 Leukocyte esterase Test strip Ql (U) 500 /ul Negative [facility] Work Phone: Urine pHon 12-23-2021 pH (U) 6.0 [pH] [facility] Work Phone: Urine sediment bacteria coun t by microscopy (number/high power field)on 12-23-2021 Bacteria LM.HPF (Urine sed) [#/Area] 2 /[HPF] None Seen [facility] Work Phone: Urine specific gravity measu rementon 12-23-2021 Specific gravity (U) [Rel density] 1.015 [facility] Work Phone: Urobilinogen Auto test strip Ql (U)on 12-23-2021 Urobilinogen Ql (U) Normal mg/dl Normal [facility] Work Phone: Vital Signs Date Time Vital Sign Value Performing Clinician Faci lity 01-09-2025 13:52-0400 Body height 162.[address] Cachorro Whitney MD Work Phone: [facility] 01-09-2025 13:52-0400 Body mass index (BMI) [Ratio] 27.9 kg/m2 Dr. Cachorro Whitney MD Work Phone: [facility] 01-09-2025 13:52-0400 Body weight 73.[address] Cachorro Whitney MD Work Phone: [facility] 01-09-2025 13:52-0400 Diastolic blood pressure 75 mm[Hg] Dr. Cachorro Whitney MD Work Phone: [facility] 01-09-2025 13:52-0400 Heart rate 64 /min Dr. Cachorro Whitney MD Work Phone: [facility] 01-09-2025 13:52-0400 Respiratory rate 17 /min Dr. Cachorro Whitney MD Work Phone: [facility] 01-09-2025 13:52-0400 SaO2% (BldA) [Mass fraction] 97 % Dr. Cachorro Whitney MD Work Phone: [facility] 01-09-2025 13:52-0400 Systolic blood pressure 126 mm[Hg] Dr. Cachorro Whitney MD Work Phone: [facility] Encounters Encounter Date Encounter Type Care Provider Facility Start: 02-07-2025 ambulatory Ccahorro Whitney Facility:[facility] Start: 01-09-2025 End: 01-09-[address] Von Velez MD -[facility] Work Phone: Start: 01-09-2025 End: 01-09-[address] Cachorro Whitney MD Work Phone: [facility] Work Phone: Start: 12-28-2024 End: 12-28-[address] Cachorro Whitney MD Work Phone: [facility] Work Phone: Start: 12-28-2024 End: 12-28-[address] Cachorro Whitney MD -Laboratory, [facility] Start: 12-28-2024 End: 12-28-2024 ambulatory Cachorro Whitney Facility:[facility] Start: 09-06-2024 End: 09-06-2024 Patient encounter procedure Candie Shankel [employer] -[facility]atory, [facility] Work Phone: Start: 09-06-2024 End: 09-06-[facility] Start: 07-01-2024 End: 07-01-2024 [facility] Start: 03-18-2024 End: 03-18-2024 [facility] Start: 12-28-2023 End: 12-28-2023 ambulatory [facility] Work Phone: Start: 12-28-2023 End: 12-28-2023 Patient encounter procedure [facility] Start: 06-26-2023 End: 06-26-2023 ambulatory [facility] Work Phone: Start: 06-26-2023 End: 06-26-2023 Patient encounter procedure [facility] Start: 07-30-2022 End: 07-30-2022 ambulatory [facility] Work Phone: Start: 07-30-2022 End: 07-30-2022 Patient encounter procedure [facility] Start: 06-25-2022 End: 06-25-2022 ambulatory [facility] Work Phone: Start: 06-25-2022 End: 06-25-2022 Patient encounter procedure [facility] Start: 12-23-2021 End: 12-23-2021 Patient encounter procedure [facility] Start: 02-23-2019 End: 02-23-2019 Outside Orders [facility] Scheduling Comment on above: Right foot drop (Mariam ciara Dx) Procedures Date Procedure Procedure Detail Performing Clinician Start: 09-06-[address] Cachorro Whitney MD Work Phone: Start: 07-30-2022 Screening mammography Plan of Treatment Date Care Activity Detail Author Start: 04-24-2019 Influenza vaccination INFLUENZA VACCINE (#1) [facility] Start: 2009 Pneumococcal vaccination PNEUMOCOCCAL VACCINE SERIES (1 of 2 - PCV13) [facility] Start: 1994 Colonoscopy COLON CANCER SCREENING DISCUSSION [facility] Start: 1994 Zoster vaccine hzv live for subcutaneous use ZOSTER (SHINGLES) VACCINE (1 of 2) [facility] Start: 1984 Fasting lipid profile LIPID SCREENING [facility] Start: 1984 Screening mammography MAMMOGRAM SCREENING DISCUSSION [facility] Start: 1965 Screening for malignant neoplasm of cervix PAP SMEAR DISCUSSION [facility] Start: 1963 Third diphtheria, tetanus and acellular pertussis (DTaP) vaccination TDAP (ADULT) [facility] Start: 1962 Tetanus vaccination TETANUS [facility] Start: 1944 Screening for osteoporosis DEXA SCAN DISCUSSION [facility] Colonoscopy [facility] Payers Date Payer Category Payer Private Health Insurance [id number] 2024 Self-pay [id number] Medicare [id number] Unknown [id number] 2.. [id number] Unknown [id number] [id number] [id number] Unknown [id number] [id number] [id number] Unknown [id number] 2.16.8 [id number] Unknown [id number] 2.16.8 [id number] Unknown [id number] 2.16.8 [id number] Social History Date Type Detail [facility] Sex Assigned At Not on file [facility] Start: 07-27-2020 End: 07-27-2020 Tobacco smoking status NHIS Unknown if ever smoked [facility] Start: 11-25-2018 Non-smoker [facility] Start: 1945 Sex Assigned At Female [facility] Start: 07-27-2020 Tobacco smoking stat us NHIS Never smoked tobacco (finding) [facility] Progress note 01-09-2025 Note Date & Type Note Facility 01-09-2025 Progress note [facility] Progress note 01-09-2025 Note Date & Type Note Facility 01-09-2025 Progress note Note Date/Time January 09, 2025 2:00p m [facility] [address] [place] [address] OFFICE VISIT Date of Service: 01/09/25 MR#: [id number] Acct: [id number] Name: KARIE PLASCENCIA Rep #: [id number] : 1945 Provider: Dr. Maggi Velez MD Age/Sex: 79/F Location: [facility] Status: Signed Intake Vital Signs 01/07/21 08:19 01/09/25 13:52 Height 5 ft 4 in 5 ft 4 in Weight: 163 lb BMI 27.9 BP 126/75 H Blood Pressure Location Rt brachial Position Sitting Respiration 17 Pulse 64 Pulse Source Monitor Pulse Oximetry (%) 97 Oxygen Delivery Method room air Intake Visit Reasons: POSSIBLE GI BLEED Chief Complaint: possible GI Bleed Is patient in pain?: No Allergies No Known Allergies Allergy (Verified 01/09/25 13:53) Medications ?Medication ?Instructions ?Recorded ?Confirmed ?Type calcium carbonate (Calcium 500) 500 mg PO DAILY 01/09/25 History folic acid 0.8 mg capsule 800 mcg PO QDAY 10/13/17 History glimepiride 1 mg tablet 0.5 mg PO BID 10/13/1701/09 History levothyroxine 75 mcg capsule 75 mcg PO DAILY 10/13/17 01/09/25 History metformin 1,000 mg tablet 1,000 mg PO BID 10/13/17 History multivitamin 1 tab PO QAM 10/13/17 History magnesium oxide 400 mg (241.3 mg 400 mg PO DAILY 10/1601/09/25 History magnesium) tablet rosuvastatin 5 mg tablet 5 mg PO QODAY 01/20/1901/09 History aspirin 81 mg tablet,delayed 81 mg PO DAILY heart heal th 10/24/19 01/09/25 History release ferrous sulfate 325 mg (65 mg 325 mg PO TID 01/09/25 0 01/09/25 History iron) tablet (Feosol) Have you fallen in the past year?: No PFSH Medical History Foot drop, right Anemia Carpal tunnel syndrome Thyroid disease Fatigue Dysuria Hyperlipemia Diabetes Surgical History H/O gastric bypass Family History (Updated 01/09/25 @ 13:52 by Ciara Hernandez) Mother Uterine cancer Sister Heart disease Thyroid disorder Social History Smoking Status: Never smoker second hand exposure: No alcohol intake: never substance use type: does not use caffeine: No what type of physical activity do you participate in: walking frequency: 3-4 times per week seatbelt use: always HPI HPI HPI: The patient is an 79-year-old female here with anemia. She does not note any gross blood in her stool. She has also had 30 pounds of unintentional weight loss. Her last EGD and colonoscopy were in 2018 and were normal. That was alsodone for anemia. Currently she is not having any abdominal pain. ROS General General: Yes weight change and fatigue; No appetite, colon cancer, breast cancer or weakness HEENT HEENT: No difficulty swallowing, eye injury, eye surgery, swollen glands or hoarseness Endo Endocrine: Yes thyroid disease and diabetes mellitus; No thyroid cancer, Hair loss, heat intolerance or cold intolerance Skin Skin: No rash or changing moles Breast Breast: No left breast lump, right breast lump, nipple discharge, breast pain, abnormal mammogram, abnormal US or breast enlargement Musc Musculoskeletal: No back problems, arthritis, rheumatoid arthritis, gout or joint pain Cardio Cardiovascular: No murmur, pacemaker, heart disease, atrial fibrillation, high blood pressure, heart attack, heart stent, palpitations, shortness of breath with exertion or chest pain Psych Psychiatric: No depression, anxiety or hearing voices Resp Respiratory: No shortness of breath, No sleep apnea, No cough, No COPD, No asthma, No emphysema and No wheezing Gastro Gastrointestinal: No abdominal pain, No nausea or vomiting, No diarrhea, No constipation, No blood in stool, No acid reflux, No hemorrhoids, No ulcers, No gallbladder problem and No black,tarry stools Jasson Hematologic: No blood thinners, No blood disorders, No bleeding, Yes anemia and No blood clots Neuro Neurologic: No system reviewed and no additional complaints, except as documented, No as per HPI, No abnormal gait, No abnormal hearing, No abnormal movements, No abnormal speech, No behavioral changes, No burning sensations, No confusion, No convulsions, No disequilibrium, No dizziness, No localized weakness, No frequent falls, No headache(s), No lack of coordination, No loss of vision, No memory loss, No numbness, No other visual disturbances, No radicular pain, No restless legs, No sensory deficit, No syncope, No tingling, No tremor(s), No weakness and No other Exam Const General: cooperative Orientation: alert and oriented x3 HENHI Head: normal to inspection Neck Neck: normal visual inspection and full ROM Chest Chest palpation & inspection: normal inspection of the chest Resp Effort & Inspection: normal respiratory effort Auscultation: clear to auscultation bilaterally Cardio Rate: regular rate Rhythm: regular rhythm GI Inspection: non-distended Palpation: soft and nontender Skin General: no rashes or lesions noted Neuro General: patient alert and patient oriented x3 Extrem General: full ROM Psych Appearance: grossly normal Mental Status: mental status grossly normal Assessment and Plan Assessment and Plan (1) H/O gastric bypass: Status: Acute (2) Anemia: Status: Acute Qualifiers: Anemia type: iron deficiency Iron deficiency anemia type: unspecified iron deficiency Qualified Code(s): D50.9 - Iron deficiency anemia, unspecified Orders: Orders Colonoscopy Today EGD Today Plan The patient is having anemia with a hemoglobin less than 9. She does not note any gross blood in her stool and she had a fecal occult blood test which was negative. I discussed performing EGD and colonoscopy for her to evaluate for GIbleeding. I will be unable to assess the gastric remnant as she has had a gastric bypass. I discussed this with her in detail. I explained endoscopy in detail to the patient. I explained the risks includingbut not limited to stroke or heart attack with anesthesia, perforation of the GItract, bleeding, infection. I explained that any of these could necessitate further emergency surgery. The patient understands and all questions were answered sufficiently. The patient wishes to proceed with procedure. Von Velez MD Pager: [facility] [address] [place] [address], [address] [place] [address] Office: Coding Level of Care Code Off vis,est,level 3 Diagnoses H/O gastric bypass Z98.84 Iron deficiency anemia, unspecified iron deficiency anemia type D50.9 Anemia type: iron deficiency Iron deficiency anemia type: unspecified iron deficiency Clinical Quality Measures Falls Risk Screening/Assistive Devices Have you fallen in the past year?: No 01/09/25 1400 <Electronically signed by Von lopez MD> Date _ Von Velez MD Cosigner Signature: Date (if applicable) CC: Dr. Cachorro Whitney MD ~ [facility] Work Phone: Evaluation note Note Date & Type Note Facility Evaluation note No assessment information availa ble [facility] Work Phone: Evaluation note Note Date & Type Note Facility Evaluation note Diagnosis Onset Date Resolution Anemia acute January 09, 2025 1:32pm H/O gastric bypass acute January 092024 1:32pm [facility] Work Phone: Reason for referral (narrative) Note Date & Type Note Facility Reason for referral (narrative) No reason for referral information available [facility] Work Phone: Reason for Referral Status Reason Specialty Diagnoses / Procedures Referred By Contact Referred To Contact New Request Neurology Diagnoses Right foot drop Sidney Ott MD [address] [place] [address] Assessments Diagnosis Right foot drop- Primary Other acquired deformity of ankle and foot Advance Directives No Advanced Directives Records Found Advance Directive Response Recorded Date/ Time Living Will Yes October 24, 2019 11:09am Power of Planning Technician Yes October 23 0 11:09am Advance Directive Response Recorded Date/ Time Living Will Yes October 24, 2019 10:09am Power of Planning Technician Yes October 23 0 10:09am Chief Complaint and Reason for Visit Chief Complaint SCREENING Chief Complaint Admit Date POSSIBLE GI BLEED January 09, 2025 1:32p m Reason for Visit Admit Date Anemia January 09, 2025 1:32p m H/O gastric bypass January 09, 2025 1:32p m Family History No Family History Records Found Relationship Condition Age at Onset Recorded Date/T piotr mother Malignant neoplasm of uterus Unknown sister Cardiac disease Unknown Disorder of thyroid Unknown Summary Purpose Additional Source Comments Goals (unrecognized section and content) Goals may be documented in a n alternate sectionGoals may be documented in an alternate sectionGoals may be documented in an alternate sectionGoals may be documented in an alternate sectionGoals may be documented in an alternate sectionGoals may be documented in an alternate sectionGoals may be documented in an alternate section Care Teams (unrecognized sec tion and content) Team Status: Active Member Role Status Dates Dr. Cachorro Whitney MD Family Provider Active Dr. Cachorro Whitney MD Primary Care Provider Active Team Status: Inactive Member Role Status Dates Dr. Cachorro Whitney MD Primary Care Provider, Attending Provider Active Team Status: Inactive Member Role Status Dates Dr. Cachorro Whitney MD Primary Care Provider Active Start: September 06, 2024 End: September 06, 2024 Candie Calderon NP, [employer] Attending Provider Active Start: September 06, 2024 End: September 06, 2024 Team Status: Inactive Member Role Status Dates Dr. Cachorro Whitney MD Primary Care Provider Active Start: December 28, 2024 End: December 28, 2024 Dr. Cachorro Whitney MD Attending Provider Active Start: December 28, 2024 End: December 28, 2024 Dr. Cachorro Whitney MD Referring Provider Active Start: December 28, 2024 End: December 28, 2024 Team Status: Inactive Member Role Status Dates Dr. Cachorro Whitney MD Primary Care Provider Active Start: January 09, 2025 End: January 09, 2025 Dr. Cachorro Whitney MD Referring Provider Active Start: January 09, 2025 End: January 09, 2025 Dr. Von Velez MD Attending Provider Active Start: January 09, 2025 End: January 09, 2025 INFORMATION SOURCE (unrecogn ized section and content) DATE CREATED AUTHOR 02/06/2025 [facility] FOR RECORDS PERTAINING TO PATIENTS WHO ARE OR HAVE BEEN ENROLLED IN A CHEMICAL DEPENDENCY/SUBSTANCEABUSE PROGRAM, SOME INFORMATION MAY BE OMITTED. This clinical summary was aggregated from multiple sources. Caution should be exercised in using it in the provision of clinical care. This summary normalizes information from multiple sources, and as a consequence, information in this document may materially change the coding, format and clinical context of patient data. In addition, data may be omitted in some cases. CLINICAL DECISIONS SHOULD BE BASED ON THE PRIMARY CLINICAL RECORDS. [employer] provides no warranty or guarantee of the accuracy or completeness of information in this document.
[2025-02-07] MEDS: Lactated Ringers 1,000 ML 15 ML IV (07:33)
--- NOTE | 2025-02-07 07:37 | PCM.PRE.AN2 ---
ASA Classification* ASA Classification ASA Classification: 2 (Anemia, hypothyroid, T2DM. AVOID VERSED) Assessment & Plan Anesthesia* Anesthesia Assessment Anesthesia Assessment: Discussed sedation and/or anesthesia options, risks, benefits, and alternatives with patient/parents/legal guardian/POA. Questions invited. The patient/parents/legal guardian/POA seems to understand and agrees to proceed with anesthesia plan. Reviewed the physical assessment, medical history, allergy history and patient home medications list prior to surgery/procedure/anesthetic and documented any changes. Performed airway and anesthesia risk assessments. Anesthesia Type Anesthesia Type: General (AVOID VERSED) History Source History Obtained from:: Patient and Chart Anesthesia Focused Assessment* Temperature: 98.6 F Pulse Rate: 71 Blood Pressure: 124/77 Respiratory Rate: 18 Pulse Ox: 100 Oxygen Delivery Method: Room Air Airway Assessment Mouth opens: >3 cm Mallampati Score: II Teeth Condition: Caps/Crowns and Missing (dentures, has some original teeth) Neck Range of motion (ROM): Full ROM Labs Anesthesia Preop lab: CBC WBC 3.5 K/mm3 (4.4-11.0) L 12/28/24 09:12/28/24 RBC 4.05 M/mm3 (4.2-5.4) L 12/28/24 09:12/28/24 Hgb 8.2 g/dL (12.0-15.0) L 12/28/24 09:25 12/28/24 Hct 27.8 % (37-47) L 12/28/24 09:25 12/28/24 Plt Count 241 K/mm3 (150-450) 12/28/24 09:25 12/28/24 CHEMISTRY Potassium 3.8 mmol/L (3.3-5.1) 12/28/24 09:25 12/28/24 Sodium 141 mmol/L (133-145) 12/28/24 09:25 12/28/24 BUN 7 mg/dL (4-19) 12/28/24 09:25 12/28/24 Creatinine 0.57 mg/dL (0.70-1.20) L 12/28/24 09:25 12/28/24 Glucose 103 mg/dL (70-99) H 12/28/24 09:25 12/28/24 POC Glucose 162 mg/dL (70-110) H 10/28/19 07:56 10/28/19 TSH 1.220 uIU/mL (0.300-4.200) 12/28/24 09:25 12/28/24 COAG Pre-Assessment Diagnosis/Proposed Procedure Planned Operative Procedure(s): COLONOSCOPY/EGD Anesthesia History Anesthesia History - billboard poster: Anesthesia History - billboard poster Hx Hospitalization No 02/03/25 09:14 Any Problems With Anesthesia No 02/03/25 09:14 Cholinesterase deficiency No 02/03/25 09:14 You/Your Family Experience No 02/03/25 09:14 fever (hyperthermia) with Relationship Recent Exposure to Contagious No 02/07/25 07:30 Disease Does patient have nerve No 02/03/25 09:14 stimulator Patient instructed to have device shut off --Does patient have Pacemaker No 02/07/25 07:30 or ICD? When Was Last Pacemaker Check QUESTION #4 FULL TEXT: You/Your Family Experience fever (hyperthermia) with Anesthesia Last Oral Intake Last Oral intake: Last Oral Intake NPO since 21:00 02/07/25 07:30 Meds taken in AM with sips of No 02/07/25 07:30 water? Meds patient instructed to take am of surgery PONV PONV - billboard poster: PONV - billboard poster Female Yes 02/03/25 09:14 HX of Motion Sickness No 02/03/25 09:14 HX of N/V After Surgery No 02/03/25 09:14 Non-Smoker Yes 02/03/25 09:14 Duration of Surgery greater No 02/03/25 09:14 than 60 minutes Number of Risk Factors 2 02/03/25 09:14 PONV Score Moderate Risk 02/03/25 09:14 Height & Weight Height & Weight: Anesthesia: Height & Weight Height 5 ft 5 in 02/07/25 07:30 Weight: 71 kg 02/07/25 07:30 Body Mass Index (BMI) 26.0 02/07/25 07:30 Respiratory Assessment Respiratory Assessment - billboard poster: Respiratory Tract Infection Hx - billboard poster Hx Respiratory Tract Infection No 02/03/25 09:14 STOP Sleep Apnea STOP Sleep Apnea - billboard poster: STOP Sleep Apnea - billboard poster Hx Hypertension No: hypotension 02/03/25 09:14 Hx Sleep Apnea No 02/03/25 09:14 CPAP BIPAP Do you snore loudly (louder No 02/03/25 09:14 than talking or can be heard Do you often feel tired/ No 02/03/25 09:14 fatigued/ sleepy during daytime? Has anyone observed you stop No 02/03/25 09:14 breathing during sleep? STOP Results Negative 02/03/25 09:14 QUESTION #5 FULL TEXT : Do you snore loudly (louder than talking or can be heard through closed doors)? 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 Specify any problems Hx of Preganancy in last 3 No 02/03/25 09:14 Months Nurse Filling Out Transfusion VCHRISTIN 02/03/25 09:14 & Questions: Date: 02/03/25 02/03/25 09:14 Time: 09:15 02/03/25 09:14 Patient unable to answer at this time (ie. confused, unrespo /Reproduction History /Reproductive History - billboard poster: /Reproductive Hx- billboard poster Hx Now No 02/03/25 09:14 Gestational Age (in weeks): EDC: Hx Hx Para Hx Section SAB No 02/03/25 09:14 Active Medications Active Medications: Current Medications Generic Name Dose Route Start Last Admin Trade Name Freq PRN Reason Stop Dose Admin Lactated Ringer's 1,000 mls @ 15 mls/hr 02/07/25 07:15 02/07/25 07:33 IV 15 mls/hr .Q48H CHITRA Administration PFSH Medical History (Updated 02/03/25 @ 09:14 by Elena Matias) Wears partial dentures Wears glasses Post-menopausal Non-smoker History of echocardiogram History of stress test History of irregular heartbeat Foot drop, right Anemia Carpal tunnel syndrome Thyroid disease Fatigue Dysuria Hyperlipemia Diabetes Home Medications ?Medication ?Instructions ?Recorded ?Last Taken ?Type calcium carbonate (Calcium 500) 500 mg PO DAILY 10/13/17 Unknown History folic acid 0.8 mg capsule 800 mcg PO QDAY 10/13/17 Unknown History glimepiride 1 mg tablet 0.5 mg PO DAILY 10/13/17 Unknown History levothyroxine 75 mcg capsule 75 mcg PO DAILY 10/13/17 02/16/19 08:00 History 75 MCG metformin 1,000 mg tablet 1,000 mg PO BID 10/13/17 Unknown History multivitamin 1 tab PO QAM 10/13/17 Unknown History magnesium oxide 400 mg (241.3 mg 400 mg PO DAILY 10/16/17 Unknown History magnesium) tablet aspirin 81 mg tablet,delayed 81 mg PO DAILY heart health 10/24/19 01/31/25 History release ferrous sulfate 325 mg (65 mg 325 mg PO TID 01/09/25 01/31/25 History iron) tablet (Feosol) Allergy/AdvReac Type Severity Reaction Status Date / Time No Known Allergies Allergy Verified 02/07/25 07:29 Family History (Updated 01/09/25 @ 13:52 by Ciara Hernandez) Mother Uterine cancer Sister Heart disease Thyroid disorder Surgical History (Updated 02/03/25 @ 09:14 by Elena Matias) History of cardiac catheterization Hx of colonoscopy History of esophagogastroduodenoscopy (EGD) History of carpal tunnel release of both wrists H/O gastric bypass Social History Smoking Status: Never smoker second hand exposure: No alcohol intake: never substance use type: does not use caffeine: No what type of physical activity do you participate in: walking frequency: 3-4 times per week seatbelt use: always Review of Systems (Anesthesia) ROS Narrative System reviewed and no additional complaints, except as documented. Physical Exam Const alert, oriented x3 and average body habitus Neck full ROM Resp normal respiratory effort, normal air movement and clear to auscultation bilaterally Cardio regular rate, regular rhythm, no murmurs and diaphoretic
--- NOTE | 2025-02-07 08:15 | PCM.HP.BLA ---
History and Physical Date of Admission: 02/07/25 Intake Vital Signs 01/08/2108:19 01/09/2513:52 Height 5 ft 4 in 5 ft 4 in Weight: 163 lb BMI 27.9 BP 126/75 H Blood Pressure Location Rt brachial Position Sitting Respiration 17 Pulse 64 Pulse Source Monitor Pulse Oximetry (%) 97 Oxygen Delivery Method room air Intake Visit Reasons: POSSIBLE GI BLEED Chief Complaint: possible GI Bleed Is patient in pain?: No Allergies No Known Allergies Allergy (Verified 01/09/25 13:53) Medications ?Medication ?Instructions ?Recorded ?Confirmed ?Type calcium carbonate (Calcium 500) 500 mg PO DAILY 10/13/17 01/09/25 History folic acid 0.8 mg capsule 800 mcg PO QDAY 10/13/17 01/09/25 History glimepiride 1 mg tablet 0.5 mg PO BID 10/13/17 01/09/25 History levothyroxine 75 mcg capsule 75 mcg PO DAILY 10/13/17 01/09/25 History metformin 1,000 mg tablet 1,000 mg PO BID 10/13/17 01/09/25 History multivitamin 1 tab PO QAM 10/13/17 01/09/25 History magnesium oxide 400 mg (241.3 mg 400 mg PO DAILY 10/16/17 01/09/25 History magnesium) tablet rosuvastatin 5 mg tablet 5 mg PO QODAY 01/20/19 01/09/25 History aspirin 81 mg tablet,delayed 81 mg PO DAILY heart health 10/24/19 01/09/25 History release ferrous sulfate 325 mg (65 mg 325 mg PO TID 01/09/25 01/09/25 History iron) tablet (Feosol) Have you fallen in the past year?: No PFSH Medical History Foot drop, right Anemia Carpal tunnel syndrome Thyroid disease Fatigue Dysuria Hyperlipemia Diabetes Surgical History H/O gastric bypass Family History (Updated 01/09/25 @ 13:52 by Ciara Hernandez) Mother Uterine cancerSister Heart disease Thyroid disorder Social History Smoking Status: Never smoker second hand exposure: No alcohol intake: never substance use type: does not use caffeine: No what type of physical activity do you participate in: walking frequency: 3-4 times per week seatbelt use: always HPI HPI HPI: The patient is an 79-year-old female here with anemia. She does not note any gross blood in her stool. She has also had 30 pounds of unintentional weight loss. Her last EGD and colonoscopy were in 2018 and were normal. That was also done for anemia. Currently she is not having any abdominal pain. ROS General General: Yes weight change and fatigue; No appetite, colon cancer, breast cancer or weakness HEENT HEENT: No difficulty swallowing, eye injury, eye surgery, swollen glands or hoarseness Endo Endocrine: Yes thyroid disease and diabetes mellitus; No thyroid cancer, Hair loss, heat intolerance or cold intolerance Skin Skin: No rash or changing moles Breast Breast: No left breast lump, right breast lump, nipple discharge, breast pain, abnormal mammogram, abnormal US or breast enlargement Musc Musculoskeletal: No back problems, arthritis, rheumatoid arthritis, gout or joint pain Cardio Cardiovascular: No murmur, pacemaker, heart disease, atrial fibrillation, high blood pressure, heart attack, heart stent, palpitations, shortness of breath with exertion or chest pain Psych Psychiatric: No depression, anxiety or hearing voices Resp Respiratory: No shortness of breath, No sleep apnea, No cough, No COPD, No asthma, No emphysema and No wheezing Gastro Gastrointestinal: No abdominal pain, No nausea or vomiting, No diarrhea, No constipation, No blood in stool, No acid reflux, No hemorrhoids, No ulcers, No gallbladder problem and No black,tarry stools Jasson Hematologic: No blood thinners, No blood disorders, No bleeding, Yes anemia and No blood clots Neuro Neurologic: No system reviewed and no additional complaints, except as documented, No as per HPI, No abnormal gait, No abnormal hearing, No abnormal movements, No abnormal speech, No behavioral changes, No burning sensations, No confusion, No convulsions, No disequilibrium, No dizziness, No localized weakness, No frequent falls, No headache(s), No lack of coordination, No loss of vision, No memory loss, No numbness, No other visual disturbances, No radicular pain, No restless legs, No sensory deficit, No syncope, No tingling, No tremor(s), No weakness and No other Exam Const General: cooperative Orientation: alert and oriented x3 HENMT Head: normal to inspection Neck Neck: normal visual inspection and full ROM Chest Chest palpation & inspection: normal inspection of the chest Resp Effort & Inspection: normal respiratory effort Auscultation: clear to auscultation bilaterally Cardio Rate: regular rate Rhythm: regular rhythm GI Inspection: non-distended Palpation: soft and nontender Skin General: no rashes or lesions noted Neuro General: patient alert and patient oriented x3 Extrem General: full ROM Psych Appearance: grossly normal Mental Status: mental status grossly normal Assessment and Plan Assessment and Plan (1) H/O gastric bypass: Status: Acute (2) Anemia: Status: Acute Qualifiers: Anemia type: iron deficiency Iron deficiency anemia type: unspecified iron deficiency Qualified Code(s): D50.9 - Iron deficiency anemia, unspecified Orders: Orders Colonoscopy Today EGD Today Plan The patient is having anemia with a hemoglobin less than 9. She does not note any gross blood in her stool and she had a fecal occult blood test which was negative. I discussed performing EGD and colonoscopy for her to evaluate for GI bleeding. I will be unable to assess the gastric remnant as she has had a gastric bypass. I discussed this with her in detail. I explained endoscopy in detail to the patient. I explained the risks including but not limited to stroke or heart attack with anesthesia, perforation of the GI tract, bleeding, infection. I explained that any of these could necessitate further emergency surgery. The patient understands and all questions were answered sufficiently. The patient wishes to proceed with procedure. Von Velez MD Pager: [facility] [address] [place] [address], [address] [place] [address] Office: I have examined the patient and the H&P has been reviewed. There are no clinical changes since date of exam.
--- NOTE | 2025-02-07 08:56 | OP.CCLET_ITS ---
02/07/2025 Cachorro Whitney MD [address] [id number] Re : Upper GI endoscopy procedure for Julia Rivera Dear Dr. Whitney This procedure was performed on Friday, February 07, 2025. My impressions and recommendations are as follows: Impressions : - Normal esophagus. - Normal stomach. - Normal examined duodenum. - No specimens collected. Recommendations : - Discharge patient to home. - Resume previous diet. - Continue present medications. My findings are described in the full procedure note, which is enclosed. If I can be of further assistance, please feel free to contact me at Doctor phone number(s): , Work: . Sincerely, Von Velez MD 02/07/2025 8:56:06 AM This report has been signed electronically.
--- NOTE | 2025-02-07 08:56 | OP.EGD_ITS ---
Patient Name: Julia Rivera Procedure Date: 02/07/2025 8:23 AM Date of : 1945 Age: 79 Procedure: Upper GI endoscopy Indications: Iron deficiency anemia Providers: Von Velez MD Referring MD: Cachorro Whitney MD Medicines: Propofol per Anesthesia Patient Profile: This is an 79 year old female. Refer to note in patient chart for documentation of history and physical. Complications: No immediate complications. Procedure: Pre-Anesthesia Assessment: - Prior to the procedure, a History and Physical was performed, and patient medications and allergies were reviewed. The patient's tolerance of previous anesthesia was also reviewed. The risks and benefits of the procedure and the sedation options and risks were discussed with the patient. All questions were answered, and informed consent was obtained. Prior Anticoagulants: The patient has taken no anticoagulant or antiplatelet agents. After reviewing the risks and benefits, the patient was deemed in satisfactory condition to undergo the procedure. After obtaining informed consent, the endoscope was passed under direct vision. Throughout the procedure, the patient's blood pressure, pulse, and oxygen saturations were monitored continuously. The colonoscope was introduced through the mouth, and advanced to the second part of duodenum. The upper GI endoscopy was accomplished without difficulty. The patient tolerated the procedure well. Scope In: 8:30:58 AM Scope Out: 8:32:32 AM Total Procedure Duration Time 0 hours 1 minute 34 seconds Findings: The esophagus was normal. The stomach was normal. The examined duodenum was normal. Impression: - Normal esophagus. - Normal stomach. - Normal examined duodenum. - No specimens collected. Recommendation: - Discharge patient to home. - Resume previous diet. - Continue present medications. Procedure Code(s): --- Professional --- 51862, Esophagogastroduodenoscopy, flexible, transoral; diagnostic, including collection of specimen(s) by brushing or washing, when performed (separate procedure) Diagnosis Code(s): --- Professional --- D50.9, Iron deficiency anemia, unspecified CPT copyright 2021 [employer]. All rights reserved. The codes documented in this report are preliminary and upon tire worker review may be revised to meet current compliance requirements. Von Velez MD 02/07/2025 8:56:06 AM This report has been signed electronically. Number of Addenda: 0 Note Initiated On: 02/07/2025 8:23 AM
--- NOTE | 2025-02-07 08:59 | OP.CCLET_ITS ---
02/07/2025 Cachorro Whitney MD [address] [place] [address] Re : Colonoscopy procedure for Julia Rivera Dear Dr. Whitney This procedure was performed on Friday, February 07, 2025. My impressions and recommendations are as follows: Impressions : - The entire examined colon is normal on direct and retroflexion views. - No specimens collected. Recommendations : - Discharge patient to home. - Resume previous diet. - Continue present medications. - Repeat colonoscopy is not recommended due to current age (66 years or older) for screening purposes. My findings are described in the full procedure note, which is enclosed. If I can be of further assistance, please feel free to contact me at Doctor phone number(s): , Work: . Sincerely, Von Velez MD 02/07/2025 8:59:20 AM This report has been signed electronically.
--- NOTE | 2025-02-07 08:59 | OP.COLON_ITS ---
Patient Name: Julia Rivera Procedure Date: 02/07/2025 8:32 AM Date of : 1945 Age: 79 Procedure: Colonoscopy Indications: Iron deficiency anemia Providers: Von Velez MD Referring MD: Cachorro Whitney MD Medicines: Propofol per Anesthesia Patient Profile: This is an 79 year old female. Refer to note in patient chart for documentation of history and physical. Last Colonoscopy: more than 3 years ago. Complications: No immediate complications. Procedure: Pre-Anesthesia Assessment: - Prior to the procedure, a History and Physical was performed, and patient medications and allergies were reviewed. The patient's tolerance of previous anesthesia was also reviewed. The risks and benefits of the procedure and the sedation options and risks were discussed with the patient. All questions were answered, and informed consent was obtained. Prior Anticoagulants: The patient has taken no anticoagulant or antiplatelet agents. After reviewing the risks and benefits, the patient was deemed in satisfactory condition to undergo the procedure. - Prior to the procedure, a History and Physical was performed, and patient medications and allergies were reviewed. The patient's tolerance of previous anesthesia was also reviewed. The risks and benefits of the procedure and the sedation options and risks were discussed with the patient. All questions were answered, and informed consent was obtained. Prior Anticoagulants: The patient has taken no anticoagulant or antiplatelet agents. After reviewing the risks and benefits, the patient was deemed in satisfactory condition to undergo the procedure. After I obtained informed consent, the scope was passed under direct vision. Throughout the procedure, the patient's blood pressure, pulse, and oxygen saturations were monitored continuously. The colonoscope was introduced through the anus and advanced to the cecum, identified by appendiceal orifice and ileocecal valve. The colonoscopy was performed without difficulty. The patient tolerated the procedure well. The quality of the bowel preparation was good. The ileocecal valve, appendiceal orifice, and rectum were photographed. Scope In: 8:33:48 AM Scope Withdrawal Time 0 hours 6 minutes 45 seconds Scope Out: 8:54:00 AM Total Procedure Duration Time 0 hours 20 minutes 12 seconds Findings: The entire examined colon appeared normal on direct and retroflexion views. Impression: - The entire examined colon is normal on direct and retroflexion views. - No specimens collected. Recommendation: - Discharge patient to home. - Resume previous diet. - Continue present medications. - Repeat colonoscopy is not recommended due to current age (66 years or older) for screening purposes. Procedure Code(s): --- Professional --- 07607, Colonoscopy, flexible; diagnostic, including collection of specimen(s) by brushing or washing, when performed (separate procedure) Diagnosis Code(s): --- Professional --- D50.9, Iron deficiency anemia, unspecified CPT copyright 2021 [employer]. All rights reserved. The codes documented in this report are preliminary and upon continuing education specialist review may be revised to meet current compliance requirements. Von Velez MD 02/07/2025 8:59:20 AM This report has been signed electronically. Number of Addenda: 0 Note Initiated On: 02/07/2025 8:32 AM
--- NOTE | 2025-02-07 09:04 | PCM.POST.ANE ---
Anesthesia: Postop Eval I Current Vital Signs Temperature: 97.8 F Pulse Rate: 77 Blood Pressure: 95/54 Respiratory Rate: 16 Pulse Ox: 97 Oxygen Delivery Method: Room Air Assessment Airway patent: Yes Spontaneous unlabored respirations: Yes Mental status: Awake and Calm nausea: No Vomiting: No Anesthesia Complication: No Fluid Hydration Crystalloid volume administer (ml): 700 Total IV fluid infused: 700 Progress Note Anesthesia document: Postop Eval 1 completed: Yes
--- NOTE | 2025-02-07 10:11 | PCM.POSTANE2 ---
Anesthesia Postop Eval I Sum Postop Eval Completion status Anesthesia document: Postop Eval 1 completed: Yes Anesthesia Postop Eval I Summary Anesthesia Postop Eval I Summary: Anesthesia Postop Eval I: Assessment Summary Airway patent Yes 02/07/25 10:05 [email or web address] Spontaneous unlabored Yes 02/07/25 10:05 [email or web address] respirations Mental status Awake,Calm 02/07/25 10:05 [email or web address] nausea No 02/07/25 10:05 [email or web address] Vomiting No 02/07/25 10:05 [email or web address] Anesthesia Postop Eval I: Fluid Summary Crystalloid volume administer 700 02/07/25 10:05 [email or web address] (ml) Colloids volume administered ( ml) Blood Product volume administered (ml) Total IV fluid infused 700 02/07/25 10:05 [email or web address] Anesthesia Postop Eval I: Summary Notes Anesthesia Complication No 02/07/25 10:05 [email or web address] Anesthesia Complication Comment: Post-operative progress note Anesthesia: Postop Eval II Evaluation Mental status: Awake Pain Level: 0 nausea: No Vomiting: No Complications Anesthesia Complication: No
== END 2025-02-07 09:52 | disposition home or self-care (01) ==
LOC: EN 07:02 → AC 07:03
PROVIDERS: PCP Family Medicine; Referring Provider Family Medicine; Visit Provider Surgery
PROC: 0DJD8ZZ Inspection of Lower Intestinal Tract, Via Natural or Artificial Opening Endoscopic (ICD-10-PCS; CPT 45378; principal; 2025-02-07 08:10)
DX: D50.9 Iron deficiency anemia, unspecified (principal); E11.9 Type 2 diabetes mellitus without complications; R63.4 Abnormal weight loss; Z68.27 Body mass index [BMI] 27.0-27.9, adult; E78.5 Hyperlipidemia, unspecified; E07.9 Disorder of thyroid, unspecified; Z79.84 Long term (current) use of oral hypoglycemic drugs; Z79.82 Long term (current) use of aspirin; Z79.890 Hormone replacement therapy; Z79.899 Other long term (current) drug therapy; Z98.84 Bariatric surgery status
CPT/HCPCS: 45378; 43235; J2405

== ENCOUNTER → 2025-02-23 | Outpatient (CLI) | payer MEDICARE, SELFPAY ==
[2025-02-23 10:20] LABS: Hematocrit 39.4 % (37-47); Hemoglobin 12.7 g/dL (12.0-15.0); Mean Corp Hgb Conc 32.2 g/dL (32-36); Mean Corpuscular Volume 77.7 fL (81-99); Mean Platelet Vol. 10.1 fl (6.2-12.0); POSITIVE MORPHOLOGY YES; Platelet Count 201 K/mm3 (150-450); RBC Distribution Width CV 24.2 % (11.6-14.6); RBC Distribution Width SD 64.2 fl (35.1-43.9); Red Blood Count 5.07 M/mm3 (4.2-5.4); White Blood Count 4.7 K/mm3 (4.4-11.0)
[2025-02-23 10:24] LABS: Scan Indicated on CBC? Y/N YES- FLAGS NOTED
[2025-02-23 10:52] LABS: Anion Gap 11 (5-15); BUN 9 mg/dL (4-19); BUN/Creat Ratio 17.1 RATIO (10-20); Calcium,Total 9.5 mg/dL (7.6-11.0); Carbon Dioxide 25.8 mmol/L (21.0-32.0); Chloride 103 mmol/L (98-108); Glucose 113 mg/dL (70-99); Potassium 4.2 mmol/L (3.3-5.1)
[2025-02-23 11:00] LABS: Differential Comment SCANNED
== END | disposition home or self-care (01) ==
LOC: MFPLAB 08:11
PROVIDERS: PCP Family Medicine; Referring Provider Family Medicine; Visit Provider Family Medicine
DX: E03.9 Hypothyroidism, unspecified (principal); D64.9 Anemia, unspecified
CPT/HCPCS: 36415; 80048; 84443; 85027

== ENCOUNTER → 2025-03-04 | Outpatient (CLI) | payer MEDICARE, SELFPAY ==
--- OUTSIDE RECORDS SUMMARY | 2025-03-04 11:28 | XMS RPT_ITS | CCD ---
Author Organization [facility] CliniSywa Care Team Providers Care Tip Scourer Name Role Phone Unavailable Primary Care Provider Unavailtabby Whitney MD, Dr. Ivory Primary Care Provider Yumiko [employer]IM[employer]-C, Candie Attending Provider Devonte PALACIOS, Dr. Ivory Attending Provider Deovnte PALACIOS, Dr. Ivory Referring Provider [phone] Devonte PALACIOS, Dr. Ivory Primary Care Provider [phone] Agustin PALACIOS, Dr. Longoria Attending Provider [phone] Agustin PALACIOS, Dr. Longoria Other Provider Cachorro Whitney Attending Unavailable Whitney, Cachorro Referring Unavailable Whitney, Cachorro Primary Care Unavailable Whitney, Cachorro Referring Unavailable Whitney, Cachorro Attending Unavailable Whitney, Cachorro Primary Care Unavailable Whitney, Cachorro Referring Unavailable Whitney, Cachorro Primary Care Unavailable Whitney, Cachorro Attending Unavailable Whitney, Cachoror Referring Unavailable Whitney, Cachorro Primary Care Unavailable Whitney, Cachorro Attending Unavailable Whitney, Cachorro Attending Unavailable Whitney, Cachorro Referring Unavailable Whitney, Cachorro Primary Care Unavailable Whitney, Cachorro Attending Unavailable Whitney, Cachorro Primary Care Unavailable Whitney, Cachorro Referring Unavailable Whitney, Cachorro Primary Care Unavailable Von Velez Attending Unavailable Whitney, Cachorro Primary Care Unavailable Candie Calderon Attending Unavailable Whitney, Cachorro Referring Unavailable Whitney, Cachorro Primary Care Unavailable Von Velez Attending Unavailable Whitney, Cachorro Referring Unavailable Whitney, Cachorro Primary Care Unavailable Von Velez Consulting Unavailable Von Velez Attending Unavailable Medications Current Medications Medication Drug Class(es) Dates Sig (Normalized) Sig (Original) aspirin 81 mg delayed release oral tablet (18 sources) Platelet Aggregation Inhibitor, Nonsteroidal Anti-inflammatory Drug Start: 10-24-2019 take 1 tablet by mouth once daily Aspirin 81 MG tablet,delayed release (/DEEP) Active 81 mg PO DAILY October 24, 2019 1:00am heart health Start: 10-13-2017 End: 10-16-2017 Aspirin 81 mg tablet,delayed release (DR/EC) Discontinued PO 0 October 13, 2017 1:00am October 16, 2017 4:05pm Start: 10-13-2017 End: 10-16-2017 Aspirin Discontinued PO [facility] 2017 1:00am October 16, 2017 4:05pm calcium carbonate 1250 mg oral tablet (9 sources) Start: 10-13-2017 take 1 tablet by mouth once daily Calcium Carbonate (Calcium 500) 500 mg calcium (1,250 mg) tablet Active 500 mg PO DAILY October 13, 2017 1:00am ferrous sulfate 325 mg oral tablet (3 sources) Start: 01-09-2025 take 1 tablet by mouth three times daily Ferrous Sulfate (Feosol) 325 mg (65 mg iron) tablet Active 325 mg PO THREE TIMES A DAY January 09, 2025 12:00am folic acid 0.8 mg oral capsule (9 sources) Start: 10-13-2017 Folic Acid 0.8 mg capsule Active 800 ug PO daily October 13, 2017 1:00am Start: 10-13-2017 take 800 ug by mouth once jose y Folic Acid Active 800 MCG PO daily October 13, 2017 1:00am glimepiride 1 mg oral tablet (9 sources) Sulfonylurea Start: 10-13-2017 take 0.5 mg by mouth once daily Glimepiride 1 mg tablet Active 0.5 mg PO DAILY October 13, 2017 1:00am Start: 10-13-2017 take 0.5 mg by mouth twice daily Glimepiride 1 mg tablet Active 0.5 mg PO TWICE A DAY October 13, 2017 1:00am Start: 10-13-2017 take 0.5 mg by mouth twice daily Glimepiride Active 0.5 MG PO TWICE A DAY October 13, 2017 1:00am levothyroxine sodium 0.075 mg oral capsule (9 sources) l-Thyroxine Start: 10-13-2017 take 1 capsule by mouth once daily Levothyroxine 75 mcg capsule Active 75 ug PO DAILY 0 October 13, 2017 1:00am magnesium oxide 400 mg oral tablet (9 sources) Start: 10-16-2017 take 1 tablet by mouth once daily Magnesium Oxide 400 mg tablet Active 400 mg PO DAILY October 16, 2017 1:00am metFORMIN hydrochloride 1000 mg oral tablet (9 sources) Biguanide Start: 10-13-2017 take 1 tablet [...] MORNING October 13, 2017 12:00am Multivitamin tablet (4 sources) Start: 10-13-2017 Multivitamin t ablet Active 1 {tbl} PO EVERY MORNING October 13, 2017 1:00am Completed/Discontinued Medications Medication Drug Class(es) Dates Sig (Normalized) Sig (Original) acetaminophen 300 mg / codeine phosphate 30 mg oral tablet (9 sources) Opioid Agonist Start: 02-16-2019 End: 02-19-2019 take 1 tablet by mouth every six hours as needed for pain Acetaminophen-Codei ne 1 TABLET tablet Discontinued 1 - 2 {tbl} PO EVERY 6 HOURS NEEDED as needed for Pain 10 2 0 February 16, 2019 12:00am February 17, 2019 12:00am February 19, 2019 12:09am take one tab every 6 hours as needed for pain, stop all other tylenol products Start: 02-16-2019 End: 02-19-2019 take 1 tablet by mouth every six hours as needed for pain Acetaminophen-Codeine Discontinued 1 - 2 TABLET PO EVERY 6 HOURS NEEDED 10 2 February 16, 2019 12:00am February 19, 2019 12:09am take one tab every 6 hours as needed for pain, stop all other tylenol products rosuvastatin calcium 5 mg oral tablet (9 sources) HMG-CoA Reductase Inhibitor Start: 01-20-2019 End: 02-03-2025 take 1 tablet by mouth every other day Rosuvastatin 5 mg tablet Discontinued 5 mg PO EVERY OTHER DAY January 20, 2019 12:00am February 03, 2025 9:05am triamcinolone acetonide 40 mg/ml injectable suspension (5 [...] [Right foot drop] Deficiency and other anemia (12 sources) Anemia; Translations: [Anemia, unspecified] 11-10-2017 Episodic Deficiency and other anemia (2 sources) Anemia, unspecified; Translations: [Anemia, unspecified] Onset: 01-02-2025 Episodic Deficiency and other anemia (1 source) Iron deficiency anemia, unspecified; Translations: [Iron deficiency anemia, unspecified] Onset: 02-15-2025 Episodic Diabetes mellitus without complication (10 sources) Diabetes mellitus; Translations: [Type 2 diabetes mellitus without complications] Onset: 07-26-2024 11-10-2017 Chronic Disorders of lipid metabolism (9 sources) Hyperlipidemia; Translations: [Hyperlipidemia, unspecified] 11-10-2017 Chronic Genitourinary symptoms and ill-defined conditions (9 sources) Dysuria; Translations: [Dysuria] 11-10-2017 Episodic Heart valve disorders (1 source) Cardiac murmur, unspecified; Translations: [Cardiac murmur, unspecified] Onset: 03-01-2025 Episodic Malaise and fatigue (9 sources) Fatigue; Translations: [Other fatigue] 11-10-2017 Episodic Other gastrointestinal disorders (12 sources) History of bypass of stomach; 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] 11-10-2017 Episodic Other gastrointestinal disorders (1 source) Bariatric surgery status; 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] Onset: 01-09-2025 Episodic Other nervous system disorders (9 sources) Carpal tunnel syndrome; Translations: [Carpal tunnel syndrome, unspecified upper limb] 05-06-2018 Chronic Thyroid disorders (2 sources) Hypothyroidism, unspecified; Translations: [Hypothyroidism, unspecified] Onset: 02-22-2025 Chronic Thyroid disorders (9 sources) Disorder of thyroid gland; Translations: [Disorder of thyroid, unspecified] 11-10-2017 Episodic Comment on above: ON MED Past or Other Problems Problem Classification Problem [...] Test Name Value Interpretation Reference Range Facility Anion gap in Serum or Plasma Ordered By: Cachorro Whitney on 02-23-2025 Anion gap [Moles/Vol] 11 mmol/L 01-05 [facility] BUN/creatinine ratioOrdered By: Cachorro Whitney on 02-23-2025 Urea nitrogen/Creatinine [Mass ratio] 17.1 mg/mg 06-12 [facility] Basic Metabolic Profile (BMP )on 02-23-2025 BUN/CRE 17.1 RATIO Normal 06-12 [facility] Comment on above: Performed By: #### L 501.9520, L100.0500, L100.4500, L500.2500 ####[facility] [address] [place], [address] Calcium [Mass/Vol] 9.5 mg/dL Normal 7.6-11.0 [facility] Comment on above: Performed By: #### L 501.9520, L100.0500, L100.4500, L500.2500 ####[facility] [address] [place], [address] Chloride [Moles/Vol] 103 mmol/L Normal 98-108 [facility] Comment on above: Performed By: #### L 501.9520, L100.0500, L100.4500, L500.2500 ####[facility] [address] [place], [address] CO2 [Moles/Vol] 25.8 mmol/L Normal 21.0-32.0 [facility] Comment on above: Performed By: #### L 501.9520, L100.0500, L100.4500, L500.2500 ####[facility] [address] [place], [address] Creatinine [Mass/Vol] 0.51 mg/dL Low 0.70-1.20 [facility] Comment on above: Performed By: #### L 501.9520, L100.0500, L100.4500, L500.2500 ####[facility] [address] [place], [address] GAP 11 Normal 5-15 [facility] Comment on above: Performed By: #### L 501.9520, L100.0500, L100.4500, L500.2500 ####[facility] [address] [place], [address] GFR/1.73 sq M.predicted among non-blacks MDRD (S/P/Bld) [Vol rate/Area] 94 mL/min/{1.73_m2} Normal >60 [facility] Comment on above: Result Comment: mL/m in/1.73m2 CKD-EPI Creatinine Equation (2020) Performed By: #### L 501.9520, L100.0500, L100.4500, L500.2500 ####[facility] [address] [place], [address] Glucose [Mass/Vol] 113 mg/dL High 70-99 [facility] Comment on above: Performed By: #### L 501.9520, L100.0500, L100.4500, L500.2500 ####[facility] [address] [place], [address] Potassium [Moles/Vol] 4.2 mmol/L Normal 3.3-5.1 [facility] Comment on above: Performed By: #### L 501.9520, L100.0500, L100.4500, L500.2500 ####[facility] [address] [place], [address] Sodium [Moles/Vol] 140 mmol/L Normal 133-145 [facility] Comment on above: Performed By: #### L 501.9520, L100.0500, L100.4500, L500.2500 ####[facility] [address] [place], [address] Urea nitrogen [Mass/Vol] 9 mg/dL Normal 4-19 [facility] Comment on above: Performed By: #### L 501.9520, L100.0500, L100.4500, L500.2500 ####[facility] [address] [place], [address] Blood manual differential co mment interpretation (narrative result)Ordered By: Cachorro Whitney on 02-23-2025 Manual differential comment Telly (Bld) [Interp] SCANNED [facility] Comment on above: 2+ ANISOCYTOSIS CBC-Complete Blood Cnt No Di ffon 02-23-2025 Erythrocyte distribution width (RBC) [Ratio] 24.2 % High 11.6-14.6 [facility] Comment on above: Performed By: #### L 501.9520, L100.0500, L100.4500, L500.2500 ####[facility] [address] [place], [address] Hematocrit (Bld) [Volume fraction] 39.4 % Normal 37-47 [facility] Comment on above: Performed By: #### L 501.9520, L100.0500, L100.4500, L500.2500 ####[facility] [address] [place], [address] Hemoglobin (Bld) [Mass/Vol] 12.7 g/dL Normal 12.0-15.0 [facility] Comment on above: Performed By: #### L 501.9520, L100.0500, L100.4500, L500.2500 ####[facility] [address] [place], [address] MCH (RBC) [Entitic mass] 25.0 pg Low 27.0-32.0 [facility] Comment on above: Performed By: #### L 501.9520, L100.0500, L100.4500, L500.2500 ####[facility] [address] [place], [address] MCHC (RBC) [Mass/Vol] 32.2 g/dL Normal 32-36 [facility] Comment on above: Performed By: #### L 501.9520, L100.0500, L100.4500, L500.2500 ####[facility] [address] [place], [address] MCV (RBC) [Entitic vol] 77.7 fL Low 81-99 [facility] Comment on above: Performed By: #### L 501.9520, L100.0500, L100.4500, L500.2500 ####[facility] [address] [place], [address] Platelet mean volume (Bld) [Entitic vol] 10.1 fL Normal 6.2-12.0 [facility] Comment on above: Performed By: #### L 501.9520, L100.0500, L100.4500, L500.2500 ####[facility] [address] [place], [address] Platelets (Bld) [#/Vol] 201 10*3/uL Normal 150-450 [facility] Comment on above: Performed By: #### L 501.9520, L100.0500, L100.4500, L500.2500 ####[facility] [address] [place], [address] RBC (Bld) [#/Vol] 5.07 10*6/uL Normal 4.2-5.4 [facility] Comment on above: Performed By: #### L 501.9520, L100.0500, L100.4500, L500.2500 ####[facility] [address] [place], [address] RDW SD 64.2 fl High 35.1-43.9 [facility] Comment on above: Performed By: #### L 501.9520, L100.0500, L100.4500, L500.2500 ####[facility] [address] [place], [address] WBC (Bld) [#/Vol] 4.7 10*3/uL Normal 4.4-11.0 [facility] Comment on above: Performed By: #### L 501.9520, L100.0500, L100.4500, L500.2500 ####[facility] [address] [place], [address] Carbon dioxide, total [Moles /volume] in Central venous bloodOrdered By: Cachorro Whitney on 02-23-2025 CO2 [Moles/Vol] 25.8 mmol/L 21.0-32.0 [facility] Chloride assayOrdered By: Salvador Whitney on 02-23-2025 Chloride [Moles/Vol] 103 mmol/L 98-108 [facility] Differential Commenton 02-23 SMEAR COMMENT SCANNED Normal [facility] Comment on above: Result Comment: 2+ A NISOCYTOSIS Performed By: #### L 501.9520, L100.0500, L100.4500, L500.2500 ####[facility] [address] [place], [address] Erythrocyte distribution wid th ratioOrdered By: Cachorro Whitney on 02-23-2025 Erythrocyte distribution width (RBC) [Ratio] 24.2 % High 11.6-14.6 [facility] Erythrocyte distribution wid th standard deviationOrdered By: Cachorro Whitney on 02-23-2025 Erythrocyte distribution width (RBC) [Ratio] 64.2 fl High 35.1-43.9 [facility] Glomerular filtration rate ( GFR) estimation/1.73 sq m using serum, plasma, or whole bOrdered By: Cachorro Whitney on 02-23-2025 GFR/1.73 sq M.predicted among non-blacks MDRD (S/P/Bld) [Vol rate/Area] 94 mL/min/{1.73_m2} >60 [facility] Comment on above: mL/min/1.73m2 CKD-EP I Creatinine Equation (2020) Hematocrit Auto (Bld) [Volum e fraction]Ordered By: Cachorro Whitney on 02-23-2025 Hematocrit (Bld) [Volume fraction] 39.4 % 37-47 [facility] Hemoglobin measurementOrdere d By: Cachorro Whitney on 02-23-2025 Hemoglobin (Bld) [Mass/Vol] 12.7 g/dL 12.0-15.0 [facility] MCV (mean corpuscular volume ) determinationOrdered By: Cachorro Whitney on 02-23-2025 MCV (RBC) [Entitic vol] 77.7 fL Low 81-99 [facility] Mean corpuscular hemoglobin (MCH) determinationOrdered By: Cachorro Whitney on 02-23-2025 MCH (RBC) [Entitic mass] 25.0 pg Low 27.0-32.0 [facility] Mean corpuscular hemoglobin concentration (MCHC) determinationOrdered By: Cachorro Whitney on 02-23-2025 MCHC (RBC) [Mass/Vol] 32.2 g/dL 32-36 [facility] Mean platelet volume determi nationOrdered By: Cachorro Whitney on 02-23-2025 Platelet mean volume (Bld) [Entitic vol] 10.1 fL 6.2-12.0 [facility] Platelet countOrdered By: Salvador Whitney on 02-23-2025 Platelets (Bld) [#/Vol] 201 10*3/uL 150-450 [facility] Potassium measurement (mass/ volume)Ordered By: Cachorro Whitney on 02-23-2025 Potassium (Unsp spec) [Mass/Vol] 4.2 mmol/L 3.3-5.1 [facility] RBC Auto (Bld) [#/Vol]Ordere d By: Cachorro Whitney on 02-23-2025 RBC (Bld) [#/Vol] 5.07 10*6/uL 4.2-5.4 [facility] Serum creatinine measurement (mass/volume)Ordered By: Cachorro Whitney on 02-23-2025 Creatinine [Mass/Vol] 0.51 mg/dL Low 0.70-1.20 [facility] Serum glucose measurement (m ass/volume)Ordered By: Cachorro Whitney on 02-23-2025 Glucose [Mass/Vol] 113 mg/dL High 70-99 [facility] Serum or plasma calcium arya urement (mass/volume)Ordered By: Cachorro Whitney on 02-23-2025 Calcium [Mass/Vol] 9.5 mg/dL 7.6-11.0 [facility] Serum or plasma urea nitroge n measurement (mass/volume)Ordered By: Cachorro Whitney on 02-23-2025 Urea nitrogen [Mass/Vol] 9 mg/dL 4-19 [facility] Sodium levelOrdered By: Cachorro Whitney on 02-23-2025 Sodium [Moles/Vol] 140 mmol/L 133-145 [facility] TSH DL <= 0.005 mIU/L QnOrde red By: Cachorro Whitney on 02-23-2025 TSH Qn 1.930 uIU/mL 0.300-4.200 [facility] Thyroid Stim Hormone (TSH)on 02-23-2025 TSH 1.930 uIU/mL Normal 0.300-4.200 [facility] Comment on above: Performed By: #### L 501.9520, L100.0500, L100.4500, L500.2500 ####[facility] [address] [place], [address] White blood cell (WBC) count Ordered By: Cachorro Whitney on 02-23-2025 WBC (Bld) [#/Vol] 4.7 10*3/uL 4.4-11.0 [facility] Colonoscopy Reporton 025 Colonoscopy Report [facility] Medical Records Department [address] [place] [address] Colonoscopy Report MR#: [id number] Acct: [id number] Name: KARIE PLASCENCIA Rep #: [id number] : 1945 79 From: Von Velez MD PCP: Dr. Cachorro Whitney MD Status:[facility] Patient Name: Karie Plascencia Procedure Date: 02/07/2025 8:32 AM Date of : 1945 Age: 79 Procedure: Colonoscopy Indications: Iron deficiency anemia Providers: Von Velez MD Referring MD: Cachorro Whitney MD Medicines: Propofol per Anesthesia Patient Profile: This is an 79 year old female. Refer to note in patient chart for documentation of history and physical. Last Colonoscopy: more than 3 years ago. Complications: No immediate complications. Procedure: Pre-Anesthesia Assessment: - Prior to the procedure, a History and Physical was performed, and patient medications and allergies were reviewed. The patient's tolerance of previous anesthesia was also reviewed. The risks and benefits of the procedure and the sedation options and risks were discussed with the patient. All questions were answered, and informed consent was obtained. Prior Anticoagulants: The patient has taken no anticoagulant or antiplatelet agents. After reviewing the risks and benefits, the patient was deemed in satisfactory condition to undergo the procedure. - Prior to the procedure, a History and Physical was performed, and patient medications and allergies were reviewed. The patient's tolerance of previous anesthesia was also reviewed. The risks and benefits of the procedure and the sedation options and risks were discussed with the patient. All questions were answered, and informed consent was obtained. Prior Anticoagulants: The patient has taken no anticoagulant or antiplatelet agents. After reviewing the risks and benefits, the patient was deemed in satisfactory condition to undergo the procedure. After I obtained informed consent, the scope was passed under direct vision. Throughout the procedure, the patient's blood pressure, pulse, and oxygen saturations were monitored continuously. The colonoscope was introduced through the anus and advanced to the cecum, identified by appendiceal orifice and ileocecal valve. The colonoscopy was performed without difficulty. The patient tolerated the procedure well. The quality of the bowel preparation was good. The ileocecal valve, appendiceal orifice, and rectum were photographed. Scope In: 8:33:48 AM Scope Withdrawal Time 0 hours 6 minutes 45 seconds Scope Out: 8:54:00 AM Total Procedure Duration Time 0 hours 20 minutes 12 seconds Findings: The entire examined colon appeared normal on direct and retroflexion views. Impression: - The entire examined colon is normal on direct and retroflexion views. - No specimens collected. Recommendation: - Discharge patient to home. - Resume previous diet. - Continue present medications. - Repeat colonoscopy is not recommended due to current age (66 years or older) for screening purposes. Procedure Code(s): --- Professional --- 73170, Colonoscopy, flexible; diagnostic, including collection of specimen(s) by brushing or washing, when performed (separate procedure) Diagnosis Code(s): --- Professional --- D50.9, Iron deficiency anemia, unspecified CPT copyright 2021 [employer]. All rights reserved. The codes documented in this report are preliminary and upon puddler helper review may be revised to meet current compliance requirements. Von Velez MD 02/07/2025 8:59:20 AM This report has been signed electronically. Number of Addenda: 0 Note Initiated On: 02/07/2025 8:32 AM 02/07/25 0859 Date Von Velez MD Cosigner Signature: Date (if indicated) CC: Dr. Von Velez MD; Dr. Cachorro Whitney MD Date Dictated: 02/07/25831 Date Transcribed: Police Manager: AC Signed Normal [facility] EGD Reporton 02-07-2025 EGD Report [facility] Medical Records Department [address] [place] [address] EGD Report MR#: [id number] Acct: [id number] Name: KARIE PLASCENCIA Rep #: [id number] : 1945 79 From: Von Velez MD PCP: Dr. Cachorro Whitney MD Status:REG [facility] Patient Name: Karie Plascencia Procedure Date: 02/07/2025 8:23 AM Date of : 1945 Age: 79 Procedure: Upper GI endoscopy Indications: Iron deficiency anemia Providers: Von Velez MD Referring MD: Cachorro Whitney MD Medicines: Propofol per Anesthesia Patient Profile: This is an 79 year old female. Refer to note in patient chart for documentation of history and physical. Complications: No immediate complications. Procedure: Pre-Anesthesia Assessment: - Prior to the procedure, a History and Physical was performed, and patient medications and allergies were reviewed. The patient's tolerance of previous anesthesia was also reviewed. The risks and benefits of the procedure and the sedation options and risks were discussed with the patient. All questions were answered, and informed consent was obtained. Prior Anticoagulants: The patient has taken no anticoagulant or antiplatelet agents. After reviewing the risks and benefits, the patient was deemed in satisfactory condition to undergo the procedure. After obtaining informed consent, the endoscope was passed under direct vision. Throughout the procedure, the patient's blood pressure, pulse, and oxygen saturations were monitored continuously. The colonoscope was introduced through the mouth, and advanced to the second part of duodenum. The upper GI endoscopy was accomplished without difficulty. The patient tolerated the procedure well. Scope In: 8:30:58 AM Scope Out: 8:32:32 AM Total Procedure Duration Time 0 hours 1 minute 34 seconds Findings: The esophagus was normal. The stomach was normal. The examined duodenum was normal. Impression: - Normal esophagus. - Normal stomach. - Normal examined duodenum. - No specimens collected. Recommendation: - Discharge patient to home. - Resume previous diet. - Continue present medications. Procedure Code(s): --- Professional --- 86379, Esophagogastroduode noscopy, flexible, transoral; diagnostic, including collection of specimen(s) by brushing or washing, when performed (separate procedure) Diagnosis Code(s): --- Professional --- D50.9, Iron deficiency anemia, unspecified CPT copyright 2021 [employer]. All rights reserved. The codes documented in this report are preliminary and upon puddler helper review may be revised to meet current compliance requirements. Von Velez MD 02/07/2025 8:56:06 AM This report has been signed electronically. Number of Addenda: 0 Note Initiated On: 02/07/2025 8:23 AM 02/07/25855 Date Von Velez MD Cosign Signature: Date (if indicated) CC: Dr. Von Velez MD; Dr. Cachorro Whitney MD Date Dictated: 02/07/25822 Date Transcribed: Police Manager: AC Signed Normal [facility] MR/POSTOP.ANEon 02-07-2025 MR/POSTOP.[facility] Medical Records Department [address] [place] [address] Anesthesia Postop Eval I 02/07/25903 MR#: [id number] Acct: [id number] Name: KARIE PLASCENCIA Rep #: [id number] : 1945 79 From: Mingo Sanchez PCP: Dr. Cachorro Whitney MD Status:[facility] Y Race: C Location: EN Anesthesia: Postop Eval I Current Vital Signs Temperature: 97.8 F Pulse Rate: 77 Blood Pressure: 95/54 Respiratory Rate: 16 Pulse Ox: 97 Oxygen Delivery Method: Room Air Assessment Airway patent: Yes Spontaneous unlabored respirations: Yes Mental status: Awake and Calm nausea: No Vomiting: No Anesthesia Complication: No Fluid Hydration Crystalloid volume administer (ml): 700 Total IV fluid infused: 700 Progress Note Anesthesia document: Postop Eval 1 completed: Yes 02/07/25 1005 Date Mingo Lillyer Florignjan Signature: Date CC: Signed Normal [facility] MR/ZFDZEQLO2hr 02-07-2025 [facility] Medical Records Department [address] [place] [address] Anesthesia Postop Eval II 02/07/25 1011 MR#: [id number] Acct: [id number] Name: KARIE PLASCENCIA Rep #: [id number] : 1945 79 From: Jose Raul Theodore MD PCP: Dr. Cachorro Whitney MD Status:[facility] Y Race: C Location: EN Anesthesia Postop Eval I Sum Postop Eval Completion status Anesthesia document: Postop Eval 1 completed: Yes Anesthesia Postop Eval I Summary Anesthesia Postop Eval I Summary: Anesthesia Postop Eval I: Assessment Summary Airway patent Yes 02/07/25 10:05 [email or web address] Spontaneous unlabored Yes 02/07/25 10:05 [email or web address] respirations Mental status Awake,Calm 02/07/25 10:05 [email or web address] nausea No 02/07/25 10:05 [email or web address] Vomiting No 02/07/25 10:05 [email or web address] Anesthesia Postop Eval I: Fluid Summary Crystalloid volume administer 700 02/07/25 10:05 [email or web address] (ml) Colloids volume administered ( ml) Blood Product volume administered (ml) Total IV fluid infused 700 02/07/25 10:05 [email or web address] Anesthesia Postop Eval I: Summary Notes Anesthesia Complication No 02/07/25 10:05 [email or web address] Anesthesia Complication Comment: Post-operative progress note Anesthesia: Postop Eval II Evaluation Mental status: Awake Pain Level: 0 nausea: No Vomiting: No Complications Anesthesia Complication: No 02/07/25 1011 Date Jose Raul Theodore MD Cosigner Signature: Date CC: Signed Normal [facility] MR/PATElif 02-03-2025 /PAT.[facility] Medical Records Department [address] [place] [address] PAT - Anesthesia 02/03/25 1151 MR#: [id number] Acct: [id number] Name: KARIE PLASCENCIA Rep #: [id number] : 1945 79 From: Yuri Mistry MD PCP: Dr. Cachorro Whitney MD Status:PRE 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 Hx Hospitalization No 02/03/25 09:14 Any Problems [...] take am of surgery PONV PONV - nuclear criticality safety engineer: PONV - nuclear criticality safety engineer Female Yes 02/03/25 09:14 HX of Motion [...] 01/09/25 13:52 Respiratory Assessment Respiratory Assessment - nuclear criticality safety engineer: Respiratory Tract Infection Hx - nuclear criticality safety engineer Hx Respiratory Tract Infection No 02/03/25 09:14 STOP Sleep Apnea STOP Sleep Apnea - nuclear criticality safety engineer: STOP Sleep Apnea - nuclear criticality safety engineer Hx Hypertension No: hypotension 02/03/25 09:14 Hx [...] Tobacco Use History Tobacco Use History - nuclear criticality safety engineer: Tobacco Use History - nuclear criticality safety engineer Tobacco Use Smoking Status Never smoker 02/03/25 09:14 Hx Tobacco Use No 02/03/25 09:14 Years Smoking Packs Smoked per Day Smoking Cessation Date was within the last 15 years Hx Smoking Cessation Date Hx Smoking Cessation Counseling Hematologic Medial History Hematologic Hx - nuclear criticality safety engineer: 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 Normal [facility] Surgery Visit Reporton 01-09 Surgery Visit Report [facility] [address] [place] [address] OFFICE VISIT Date of Service: 01/09/25 MR#: [id number] Acct: [id number] Name: KARIE PLASCENCIA Rep #: [id number] : 1945 Provider: Dr. Von chun MD Age/Sex: 79/F Location: BMS.WSA Status: Signed Intake Vital Signs 01/07/21 08:19 [...] Chest C (more content not included)... Normal [facility] Absolute lymphocyte countOrd ered By: Cachorro Whitney on 12-28-2024 Lymphocytes Auto (Unsp spec) [#/Vol] 1.06 10*3/uL 0.83-4.51 [facility] Absolute neutrophil countOrd ered By: Cachorro Whitney on 12-28-2024 Neutrophils (Bld) [#/Vol] 2.0 10*3/uL 2.0-7.7 [facility] Anion gap in Serum or Plasma Ordered By: Cachorro Whitney on 12-28-2024 Anion gap [Moles/Vol] 11 mmol/L 5-15 [facility] Automated lymphocyte count a s percentage of total leukocytesOrdered By: Cachorro Whitney on 12-28-2024 Lymphocytes/100 WBC Auto (Unsp spec) 29.9 % 19-41 [facility] BUN/creatinine ratioOrdered By: Cachorro Whitney on 12-28-2024 Urea nitrogen/Creatinine [Mass ratio] 13.1 mg/mg 10-20 [facility] Basophil percentageOrdered B y: Cachorro Whitney on 12-28-2024 Basophils/100 WBC (Bld) 0.6 % 0-1 [facility] Bilirubin, totalOrdered By: Cachorro Whitney on 12-28-2024 Bilirubin [Mass/Vol] 0.31 mg/dL 0.00-1.30 [facility] CBC W/Diff, Automatedon Absolute Lymph 1.06 X10 3/uL Normal 0.83-4.51 [facility] Comment on above: Performed By: #### L 500.4100, L500.4050, L506.0400, L501.9520, L502.0250, L501.32827, L100.0100 ####[facility] [address] [place], [address] Absolute Neut 2.0 X10 3/uL Normal 2.0-7.7 [facility] Comment on above: Performed By: #### L 500.4100, L500.4050, L506.0400, L501.9520, L502.0250, L501.82159, L100.0100 ####[facility] [address] [place], [address] Basophils/100 WBC (Bld) 0.6 % Normal 0-1 [facility] Comment on above: Performed By: #### L 500.4100, L500.4050, L506.0400, L501.9520, L502.0250, L501.74174, L100.0100 ####[facility] [address] [place], [address] Eosinophils/100 WBC (Bld) 4.0 % Normal 0-5 [facility] Comment on above: Performed By: #### L 500.4100, L500.4050, L506.0400, L501.9520, L502.0250, L501.74548, L100.0100 ####[facility] [address] [place], [address] Erythrocyte distribution width (RBC) [Ratio] 18.7 % High 11.6-14.6 [facility] Comment on above: Performed By: #### L 500.4100, L500.4050, L506.0400, L501.9520, L502.0250, L501.73086, L100.0100 ####[facility] [address] [place], [address] Hematocrit (Bld) [Volume fraction] 27.8 % Low 37-47 [facility] Comment on above: Performed By: #### L 500.4100, L500.4050, L506.0400, L501.9520, L502.0250, L501.67458, L100.0100 ####[facility] [address] [place], [address] Hemoglobin (Bld) [Mass/Vol] 8.2 g/dL Low 12.0-15.0 [facility] Comment on above: Performed By: #### L 500.4100, L500.4050, L506.0400, L501.9520, L502.0250, L501.62758, L100.0100 ####[facility] [address] [place], [address] IG% 0.000 Normal 0.0-0.9 [facility] Comment on above: Result Comment: IG% - Immature Granulocytes (promyelocytes, myelocytes and metamyelocytes) > 1% indicates that a LEFT SHIFT is Present. Performed By: #### L 500.4100, L500.4050, L506.0400, L501.9520, L502.0250, L501.47121, L100.0100 ####[facility] [address] [place], [address] Lymphocytes/100 WBC (Bld) 29.9 % Normal 19-41 [facility] Comment on above: Performed By: #### L 500.4100, L500.4050, L506.0400, L501.9520, L502.0250, L501.53404, L100.0100 ####[facility] [address] [place], [address] MCH (RBC) [Entitic mass] 20.2 pg Low 27.0-32.0 [facility] Comment on above: Performed By: #### L 500.4100, L500.4050, L506.0400, L501.9520, L502.0250, L501.09221, L100.0100 ####[facility] [address] [place], [address] MCHC (RBC) [Mass/Vol] 29.5 g/dL Low 32-36 [facility] Comment on above: Performed By: #### L 500.4100, L500.4050, L506.0400, L501.9520, L502.0250, L501.76407, L100.0100 ####[facility] [address] [place], [address] MCV (RBC) [Entitic vol] 68.6 fL Low 81-99 [facility] Comment on above: Performed By: #### L 500.4100, L500.4050, L506.0400, L501.9520, L502.0250, L501.76483, L100.0100 ####[facility] [address] [place], [address] Monocytes/100 WBC (Bld) 9.0 % Normal 0-10 [facility] Comment on above: Performed By: #### L 500.4100, L500.4050, L506.0400, L501.9520, L502.0250, L501.84103, L100.0100 ####[facility] [address] [place], [address] Neutrophils/100 WBC (Bld) 56.5 % Normal 47-70 [facility] Comment on above: Performed By: #### L 500.4100, L500.4050, L506.0400, L501.9520, L502.0250, L501.07308, L100.0100 ####[facility] [address] [place], [address] Nucleated RBC (Bld) [#/Vol] 0 10*3/uL Normal 0-5 [facility] Comment on above: Performed By: #### L 500.4100, L500.4050, L506.0400, L501.9520, L502.0250, L501.91578, L100.0100 ####[facility] [address] [place], [address] Platelet mean volume (Bld) [Entitic vol] 10.0 fL Normal 6.2-12.0 [facility] Comment on above: Performed By: #### L 500.4100, L500.4050, L506.0400, L501.9520, L502.0250, L501.41384, L100.0100 ####[facility] [address] [place], [address] Platelets (Bld) [#/Vol] 241 10*3/uL Normal 150-450 [facility] Comment on above: Performed By: #### L 500.4100, L500.4050, L506.0400, L501.9520, L502.0250, L501.93612, L100.0100 ####[facility] [address] [place], [address] RBC (Bld) [#/Vol] 4.05 10*6/uL Low 4.2-5.4 [facility] Comment on above: Performed By: #### L 500.4100, L500.4050, L506.0400, L501.9520, L502.0250, L501.46026, L100.0100 ####[facility] [address] [place], [address] RDW SD 46.2 fl High 35.1-43.9 [facility] Comment on above: Performed By: #### L 500.4100, L500.4050, L506.0400, L501.9520, L502.0250, L501.94250, L100.0100 ####[facility] [address] [place], [address] WBC (Bld) [#/Vol] 3.5 10*3/uL Low 4.4-11.0 [facility] Comment on above: Performed By: #### L 500.4100, L500.4050, L506.0400, L501.9520, L502.0250, L501.24329, L100.0100 ####[facility] [address] [place], [address] Calculated very low density lipoprotein (VLDL) cholesterol measurementOrdered By: Cachorro Whitney on 12-28-2024 Calculated very low density lipoprotein (VLDL) cholesterol measurement 20 mg/dL 5-40 [facility] Carbon dioxide, total [Moles /volume] in Central venous bloodOrdered By: Cachorro Whitney on 12-28-2024 CO2 [Moles/Vol] 23.5 mmol/L 21.0-32.0 [facility] Chloride assayOrdered By: Salvador Whitney on 12-28-2024 Chloride [Moles/Vol] 107 mmol/L 98-108 [facility] Comprehensive Metabolic Prof ilon 12-28-2024 Albumin [Mass/Vol] 4.2 g/dL Normal 3.4-4.8 [facility] Comment on above: Performed By: #### L 500.4100, L500.4050, L506.0400, L501.9520, L502.0250, L501.55986, L100.0100 ####[facility] [address] [place], [address] Albumin/Globulin [Mass ratio] 1.7 {ratio} Normal 0.9-2.4 [facility] Comment on above: Performed By: #### L 500.4100, L500.4050, L506.0400, L501.9520, L502.0250, L501.68706, L100.0100 ####[facility] [address] [place], [address] ALK PHOS 63 U/L Normal 35-104 [facility] Comment on above: Performed By: #### L 500.4100, L500.4050, L506.0400, L501.9520, L502.0250, L501.80454, L100.0100 ####[facility] [address] [place], [address] ALT [Catalytic activity/Vol] 16 U/L Normal <=34 [facility] Comment on above: Performed By: #### L 500.4100, L500.4050, L506.0400, L501.9520, L502.0250, L501.05467, L100.0100 ####[facility] [address] [place], [address] AST [Catalytic activity/Vol] 18 U/L Normal <=31 [facility] Comment on above: Performed By: #### L 500.4100, L500.4050, L506.0400, L501.9520, L502.0250, L501.63655, L100.0100 ####[facility] [address] [place], [address] Bilirubin [Mass/Vol] 0.31 mg/dL Normal 0.00-1.30 [facility] Comment on above: Performed By: #### L 500.4100, L500.4050, L506.0400, L501.9520, L502.0250, L501.04146, L100.0100 ####[facility] [address] [place], [address] BUN/CRE 13.1 RATIO Normal 10-20 [facility] Comment on above: Performed By: #### L 500.4100, L500.4050, L506.0400, L501.9520, L502.0250, L501.75757, L100.0100 ####[facility] [address] [place], [address] Calcium [Mass/Vol] 9.2 mg/dL Normal 7.6-11.0 [facility] Comment on above: Performed By: #### L 500.4100, L500.4050, L506.0400, L501.9520, L502.0250, L501.32899, L100.0100 ####[facility] [address] [place], [address] Chloride [Moles/Vol] 107 mmol/L Normal 98-108 [facility] Comment on above: Performed By: #### L 500.4100, L500.4050, L506.0400, L501.9520, L502.0250, L501.56207, L100.0100 ####[facility] [address] [place], [address] CO2 [Moles/Vol] 23.5 mmol/L Normal 21.0-32.0 [facility] Comment on above: Performed By: #### L 500.4100, L500.4050, L506.0400, L501.9520, L502.0250, L501.28195, L100.0100 ####[facility] [address] [place], [place], [phone] Creatinine [Mass/Vol] 0.57 mg/dL Low 0.70-1.20 [facility] Comment on above: Performed By: #### L 500.4100, L500.4050, L506.0400, L501.9520, L502.0250, L501.96118, L100.0100 ####[facility] [address] [place], [address] GAP 11 Normal 5-15 [facility] Comment on above: Performed By: #### L 500.4100, L500.4050, L506.0400, L501.9520, L502.0250, L501.04949, L100.0100 ####[facility] [address] [place], [address] GFR/1.73 sq M.predicted among non-blacks MDRD (S/P/Bld) [Vol rate/Area] 92 mL/min/{1.73_m2} Normal >60 [facility] Comment on above: Result Comment: mL/m in/1.73m2 CKD-EPI Creatinine Equation (2020) Performed By: #### L 500.4100, L500.4050, L506.0400, L501.9520, L502.0250, L501.20423, L100.0100 ####[facility] [address] [place], [address] Globulin (S) [Mass/Vol] 2.5 g/dL Normal 2.2-4.2 [facility] Comment on above: Performed By: #### L 500.4100, L500.4050, L506.0400, L501.9520, L502.0250, L501.92869, L100.0100 ####[facility] [address] [place], [address] Glucose [Mass/Vol] 103 mg/dL High 70-99 [facility] Comment on above: Performed By: #### L 500.4100, L500.4050, L506.0400, L501.9520, L502.0250, L501.41208, L100.0100 ####[facility] [address] [place], [address] Potassium [Moles/Vol] 3.8 mmol/L Normal 3.3-5.1 [facility] Comment on above: Performed By: #### L 500.4100, L500.4050, L506.0400, L501.9520, L502.0250, L501.62360, L100.0100 ####[facility] [address] [place], [address] Sodium [Moles/Vol] 141 mmol/L Normal 133-145 [facility] Comment on above: Performed By: #### L 500.4100, L500.4050, L506.0400, L501.9520, L502.0250, L501.07635, L100.0100 ####[facility] [address] [place], [address] T PROT 6.7 g/dL Normal 5.9-8.4 [facility] Comment on above: Performed By: #### L 500.4100, L500.4050, L506.0400, L501.9520, L502.0250, L501.79226, L100.0100 ####[facility] [address] [place], [address] Urea nitrogen [Mass/Vol] 7 mg/dL Normal 4-19 [facility] Comment on above: Performed By: #### L 500.4100, L500.4050, L506.0400, L501.9520, L502.0250, L501.70233, L100.0100 ####[facility] [address] [place], [place], [phone] Eosinophil percentageOrdered By: Cachorro Whitney on 12-28-2024 Eosinophils/100 WBC (Bld) 4.0 % 0-5 [facility] Erythrocyte distribution wid th ratioOrdered By: Cachorro Whitney on 12-28-2024 Erythrocyte distribution width (RBC) [Ratio] 18.7 % High 11.6-14.6 [facility] Erythrocyte distribution wid th standard deviationOrdered By: Cachorro Whitney on 12-28-2024 Erythrocyte distribution width (RBC) [Ratio] 46.2 fl High 35.1-43.9 [facility] Free T3on 12-28-2024 Free T3 [Mass/Vol] 2.6 pg/mL Normal 2.18-3.98 [facility] Comment on above: Performed By: #### L 500.4100, L500.4050, L506.0400, L501.9520, L502.0250, L501.77009, L100.0100 ####[facility] [address] [place], [place], [phone]) Free A0Siedtoq By: Cachorro kim on 12-28-2024 Free T3 [Mass/Vol] 2.6 pg/mL 2.18-3.98 [facility] Glomerular filtration rate ( GFR) estimation/1.73 sq m using serum, plasma, or whole bOrdered By: Cachorro Whitney on 12-28-2024 GFR/1.73 sq M.predicted among non-blacks MDRD (S/P/Bld) [Vol rate/Area] 92 mL/min/{1.73_m2} >60 [facility] Comment on above: mL/min/1.73m2 CKD-EP I Creatinine Equation (2020) Hematocrit Auto (Bld) [Volum e fraction]Ordered By: Cachorro Whitney on 12-28-2024 Hematocrit (Bld) [Volume fraction] 27.8 % Low 37-47 [facility] Hemoglobin measurementOrdere d By: Cachorro Whitney on 12-28-2024 Hemoglobin (Bld) [Mass/Vol] 8.2 g/dL Low 12.0-15.0 [facility] Immature granulocytes/100 WB C Auto (Bld)Ordered By: Cachorro Whitney on 12-28-2024 Immature granulocytes/100 WBC (Bld) 0.000 % 0.0-0.9 [facility] Comment on above: IG% - Immature Granu locytes (promyelocytes, myelocytes and metamyelocytes) > 1% indicates that a LEFT SHIFT is Present. LDL calc ser/plasOrdered By: Cachorro Whitney on 12-28-2024 Cholesterol in LDL [Mass/Vol] 167 mg/dL [facility] Comment on above: Cccggtdjmy=702-916 m g/dL & Higher Qjtd=743 mg/dL or greater Laboratory - Chemistry and C hemistry - challengeOrdered By: Cachorro Whitney on 12-28-2024 AST [Catalytic activity/Vol] 18 U/L <32 [facility] Lipid Profileon 12-28-2024 CHOL:HDL 3.59 Normal [facility] Comment on above: Performed By: #### L 500.4100, L500.4050, L506.0400, L501.9520, L502.0250, L501.08251, L100.0100 ####[facility] [address] [place], [place], [address] Cholesterol [Mass/Vol] 259 mg/dL High <=200 [facility] Comment on above: Result Comment: Chol esterol level, Desirable <200 mg/dL Borderline high cholesterol 200-239 mg/dL High cholesterol >=240 mg/dL Recommendations of the NCEP Adult Treatment Panel for the following risk-cutoff thresholds for the [place] population. Performed By: #### L 500.4100, L500.4050, L506.0400, L501.9520, L502.0250, L501.71320, L100.0100 ####[facility] [address] [place], [address] Cholesterol in HDL [Mass/Vol] 72 mg/dL Normal [facility] Comment on above: Result Comment: Cassie onal Cholesterol Education Program (NCEP) guidelines: <40 mg/dL: Low HDL-cholesterol (major risk factor for CHD) >= 60 mg/dL: High HDL-cholesterol (negative risk factor for CHD) HDL-cholesterol is affected by a number of factors, e.g. smoking, exercise, hormones, sex and age. Performed By: #### L 500.4100, L500.4050, L506.0400, L501.9520, L502.0250, L501.08380, L100.0100 ####[facility] [address] [place], [address] Cholesterol in LDL [Mass/Vol] 167 mg/dL Normal [facility] Comment on above: Result Comment: Bord tmjnvu=284-276 mg/dL Higher Rwvp=123 mg/dL or greater Performed By: #### L 500.4100, L500.4050, L506.0400, L501.9520, L502.0250, L501.26699, L100.0100 ####[facility] [address] [place], [address] Cholesterol in VLDL [Mass/Vol] 20 mg/dL Normal 5-40 [facility] Comment on above: Performed By: #### L 500.4100, L500.4050, L506.0400, L501.9520, L502.0250, L501.01617, L100.0100 ####[facility] [address] [place], [place], [id number] Triglyceride [Mass/Vol] 98 mg/dL Normal [facility] Comment on above: Result Comment: The drugs N-Acetylcysteine and Metamizole may falsely depress this assay. Normal range: <150 mg/dL Borderline High: 150-199 mg/dL High: 200-499 mg/dL Very High: >500 mg/dL Performed By: #### L 500.4100, L500.4050, L506.0400, L501.9520, L502.0250, L501.96507, L100.0100 ####[facility] [address] [place], [place], [id number] MCV (mean corpuscular volume ) determinationOrdered By: Cachorro Whitney on 12-28-2024 MCV (RBC) [Entitic vol] 68.6 fL Low 81-99 [facility] Mean corpuscular hemoglobin (MCH) determinationOrdered By: Cachorro Whitney on 12-28-2024 MCH (RBC) [Entitic mass] 20.2 pg Low 27.0-32.0 [facility] Mean corpuscular hemoglobin concentration (MCHC) determinationOrdered By: Cachorro Whitney on 12-28-2024 MCHC (RBC) [Mass/Vol] 29.5 g/dL Low 32-36 [facility] Mean platelet volume determi nationOrdered By: Cachorro Whitney on 12-28-2024 Platelet mean volume (Bld) [Entitic vol] 10.0 fL 6.2-12.0 [facility] Microalb:Creat Ratio,Random URon 12-28-2024 Creatinine [Mass/Vol] 32.20 mg/dL Normal 28.00-217.00 [facility] Comment on above: Performed By: #### L 500.4100, L500.4050, L506.0400, L501.9520, L502.0250, L501.36257, L100.0100 ####[facility] [address] [place], [place], [id number] MALB:CREAT UNABLE TO CALCULATE Normal [facility] Comment on above: Performed By: #### L 500.4100, L500.4050, L506.0400, L501.9520, L502.0250, L501.52683, L100.0100 ####[facility] [address] [place], [address] MICROALBUMIN,UR < 12.0 Normal NO RANGE EST. [facility] Comment on above: Performed By: #### L 500.4100, L500.4050, L506.0400, L501.9520, L502.0250, L501.49691, L100.0100 ####[facility] [address] [place], [place], [id number] Microalbumin/creat ratio urO rdered By: Cachorro Whitney on 12-28-2024 Urine microalbumin/creatinine ratio measurement UNABLE TO CALCULATE mg/g CRE [facility] Monocyte percentageOrdered B y: Cachorro Whitney on 12-28-2024 Monocytes/100 WBC (Bld) 9.0 % 0-10 [facility] Neutrophil percentageOrdered By: Cachorro Whitney on 12-28-2024 Neutrophils/100 WBC (Bld) 56.5 % 47-70 [facility] Nucleated red blood cell per centageOrdered By: Cachorro Whitney on 12-28-2024 Nucleated RBC/100 WBC (Bld) [Ratio] 0 % 0-5 [facility] Platelet countOrdered By: Salvador Whitney on 12-28-2024 Platelets (Bld) [#/Vol] 241 10*3/uL 150-450 [facility] Potassium measurement (mass/ volume)Ordered By: Cachorro Whitney on 12-28-2024 Potassium (Unsp spec) [Mass/Vol] 3.8 mmol/L 3.3-5.1 [facility] RBC Auto (Bld) [#/Vol]Ordere d By: Cachorro Whitney on 12-28-2024 RBC (Bld) [#/Vol] 4.05 10*6/uL Low 4.2-5.4 [facility] Random urine creatinine arya urement (mass/volume)Ordered By: Cachorro Whitney on 12-28-2024 Creatinine Unsp time (U) [Mass/Vol] 32.20 mg/dL 28.00-217.00 [facility] Screening total cholesterol/ high density lipoprotein (HDL) cholesterol ratioOrdered By: Cachorro Whitney on 12-28-2024 Cholesterol.total/Cholest edi in HDL [Mass ratio] 3.59 {ratio} [facility] Serum creatinine measurement (mass/volume)Ordered By: Cachorro Whitney on 12-28-2024 Creatinine [Mass/Vol] 0.57 mg/dL Low 0.70-1.20 [facility] Serum globulin measurementOr dered By: Cachorro Whitney on 12-28-2024 Globulin (S) [Mass/Vol] 2.5 g/dL 2.2-4.2 [facility] Serum glucose measurement (m ass/volume)Ordered By: Cachorro Whitney on 12-28-2024 Glucose [Mass/Vol] 103 mg/dL High 70-99 [facility] Serum or plasma alanine morejon otransferase (ALT) measurementOrdered By: Cachorro Whitney on 12-28-2024 ALT [Catalytic activity/Vol] 16 U/L <35 [facility] Serum or plasma albumin arya urement (mass/volume)Ordered By: Cachorro Whitney on 12-28-2024 Albumin [Mass/Vol] 4.2 g/dL 3.4-4.8 [facility] Serum or plasma albumin/glob ulin mass ratioOrdered By: Cachorro Whitney on 12-28-2024 Albumin/Globulin [Mass ratio] 1.7 {ratio} 0.9-2.4 [facility] Serum or plasma alkaline altagracia sphatase measurementOrdered By: Cachorro Whitney on 12-28-2024 ALP [Catalytic activity/Vol] 63 U/L 35-104 [facility] Serum or plasma calcium arya urement (mass/volume)Ordered By: Cachorro Whitney on 12-28-2024 Calcium [Mass/Vol] 9.2 mg/dL 7.6-11.0 [facility] Serum or plasma cholesterol in HDL measurement (mass/volume)Ordered By: Cachorro Whitney on 12-28-2024 Cholesterol in HDL [Mass/Vol] 72 mg/dL >40 [facility] Comment on above: National Cholesterol Education Program (NCEP) guidelines:<40 mg/dL: Low HDL-cholesterol (major risk factor for CHD)>= 60 mg/dL: High HDL-cholesterol (negative risk factor for CHD)HDL-cholesterol is affected by a number of factors, e.g. smoking, exercise, hormones, sex and age. Serum or plasma cholesterol measurement (mass/volume)Ordered By: Cachorro Whitney on 12-28-2024 Cholesterol [Mass/Vol] 259 mg/dL High <201 [facility] Comment on above: Cholesterol level, D esirable <200 mg/dLBorderline high cholesterol 200-239 mg/dLHigh cholesterol >=240 mg/dLRecommendations of the NCEP Adult Treatment Panel for the following risk-cutoff thresholds for the [place] population. Serum or plasma urea nitroge n measurement (mass/volume)Ordered By: Cachorro Whitney on 12-28-2024 Urea nitrogen [Mass/Vol] 7 mg/dL 4-19 [facility] Sodium levelOrdered By: Cachorro Whitney on 12-28-2024 Sodium [Moles/Vol] 141 mmol/L 133-145 [facility] T4 Free Directon 12-28-2024 T4 FREE DIRECT 1.30 ng/dL Normal 0.76-1.46 [facility] Comment on above: Performed By: #### L 500.4100, L500.4050, L506.0400, L501.9520, L502.0250, L501.36713, L100.0100 ####[facility] [address] [place], [address] T4 freeOrdered By: Cachorro kim on 12-28-2024 Free T4 [Mass/Vol] 1.30 ng/dL 0.76-1.46 [facility] TSH DL <= 0.005 mIU/L QnOrde red By: Cachorro Whitney on 12-28-2024 TSH Qn 1.220 uIU/mL 0.300-4.200 [facility] Thyroid Stim Hormone (TSH)on 12-28-2024 TSH 1.220 uIU/mL Normal 0.300-4.200 [facility] Comment on above: Performed By: #### L 500.4100, L500.4050, L506.0400, L501.9520, L502.0250, L501.44210, L100.0100 ####[facility] [address] [place], [address] Total proteinOrdered By: Erinn Whitney on 12-28-2024 Protein [Mass/Vol] 6.7 g/dL 5.9-8.4 [facility] Triglycerides measurementOrd ered By: Cachorro Whitney on 12-28-2024 Triglyceride [Mass/Vol] 98 mg/dL <199 [facility] Comment on above: The drugs N-Acetylcy steine and Metamizole may falsely depress this assay. Normal range: <150 mg/dLBorderline High: 150-199 mg/dLHigh: 200-499 mg/dLVery High: >500 mg/dL Urine albumin measurement wi detection limit of 20 mg/L or less (mass/volume)Ordered By: Cachorro Whitney on 12-28-2024 Albumin DL <= 20 mg/L (U) [Mass/Vol] < 12.0 mg/L NO RANGE EST. [facility] White blood cell (WBC) count Ordered By: Cachorro Whitney on 12-28-2024 WBC (Bld) [#/Vol] 3.5 10*3/uL Low 4.4-11.0 [facility] Urine Cultureon 09-08-2024 URC Klebsiella pneumoniae sp pneum [place] Count 80,000-100,000 Klebsiella pneumoniae sp pneum: REACTION [...] TMP SMX Islt SHAY <=20 S Normal [facility] Comment on above: Performed By: #### M 100.2200 #### [facility] [address] [place], [address] Urine cultureOrdered By: Brittni Calderon on 09-06-2024 Bacteria identified Cx Nom (U) Klebsiella pneumoniae sp pneum Abnormal [facility] Comprehensive Metabolic Prof ilon 07-01-2024 Albumin [Mass/Vol] 3.7 g/dL Normal 3.2-5.0 [facility] Comment on above: Performed By: #### L 501.9520, L506.0400, L501.85147, L500.4050, L500.4100 #### [facility] [address] [place], [address] Albumin/Globulin [Mass ratio] 1.1 {ratio} Normal 0.9-2.4 [facility] Comment on above: Performed By: #### L 501.9520, L506.0400, L501.74583, L500.4050, L500.4100 #### [facility] [address] [place], [address] ALK P 63 U/L Normal 45-117 [facility] Comment on above: Performed By: #### L 501.9520, L506.0400, L501.91477, L500.4050, L500.4100 #### [facility] [address] [place], [address] ALT [Catalytic activity/Vol] 20 U/L Normal 13-56 [facility] Comment on above: Performed By: #### L 501.9520, L506.0400, L501.64494, L500.4050, L500.4100 #### [facility] [address] [place], [address] AST [Catalytic activity/Vol] 16 U/L Normal 15-37 [facility] Comment on above: Performed By: #### L 501.9520, L506.0400, L501.82972, L500.4050, L500.4100 #### [facility] [address] [place], [address] Bilirubin [Mass/Vol] 0.40 mg/dL Normal 0.20-1.00 [facility] Comment on above: Result Comment: For patients on eltrombopag therapy, use of Dimension [place] TBIL is not recommended. Performed By: #### L 501.9520, L506.0400, L501.22414, L500.4050, L500.4100 #### [facility] [address] [place], [address] BUN/CRE 19.1 RATIO Normal 10-20 [facility] Comment on above: Performed By: #### L 501.9520, L506.0400, L501.68373, L500.4050, L500.4100 #### [facility] [address] [place], [address] CA,Total 9.4 mg/dL Normal 8.5-10.1 [facility] Comment on above: Performed By: #### L 501.9520, L506.0400, L501.95712, L500.4050, L500.4100 #### [facility] [address] [place], [address] Chloride [Moles/Vol] 106 mmol/L Normal 98-107 [facility] Comment on above: Performed By: #### L 501.9520, L506.0400, L501.14645, L500.4050, L500.4100 #### [facility] [address] [place], [address] CO2 [Moles/Vol] 26.0 mmol/L Normal 21.0-32.0 [facility] Comment on above: Performed By: #### L 501.9520, L506.0400, L501.17925, L500.4050, L500.4100 #### [facility] [address] [place], [address] Creatinine [Mass/Vol] 0.58 mg/dL Normal 0.55-1.02 [facility] Comment on above: Result Comment: The validity of the calculated GFR GFRAA in patients over 70 years has not been determined. Clinical correlation is essential. Performed By: #### L 501.9520, L506.0400, L501.43664, L500.4050, L500.4100 #### [facility] [address] [place], [address] EST GFR - AA 130 mL/min Normal >60 [facility] Comment on above: Result Comment: Afri can Nigerian GFR Calc Performed By: #### L 501.9520, L506.0400, L501.57064, L500.4050, L500.4100 #### [facility] [address] [place], [address] GAP 6 Normal 5-15 [facility] Comment on above: Performed By: #### L 501.9520, L506.0400, L501.95023, L500.4050, L500.4100 #### [facility] [address] [place], [address] GFR/1.73 sq M.predicted among non-blacks MDRD (S/P/Bld) [Vol rate/Area] 107 mL/min/{1.73_m2} Normal >60 [facility] Comment on above: Result Comment: Non- GFR Calc Performed By: #### L 501.9520, L506.0400, L501.04833, L500.4050, L500.4100 #### [facility] [address] [place], [address] Globulin (S) [Mass/Vol] 3.5 g/dL Normal 2.2-4.2 [facility] Comment on above: Performed By: #### L 501.9520, L506.0400, L501.17515, L500.4050, L500.4100 #### [facility] [address] [place], [address] Glucose [Mass/Vol] 148 mg/dL High 74-106 [facility] Comment on above: Result Comment: Fast ing Glucose result greater than or equal to 126 mg/dL suggests DIABETES MELLITUS per A.D.A. criteria. Performed By: #### L 501.9520, L506.0400, L501.39360, L500.4050, L500.4100 #### [facility] [address] [place], [address] Potassium [Moles/Vol] 4.0 mmol/L Normal 3.5-5.1 [facility] Comment on above: Performed By: #### L 501.9520, L506.0400, L501.31210, L500.4050, L500.4100 #### [facility] [address] [place], [address] Sodium [Moles/Vol] 138 mmol/L Normal 136-145 [facility] Comment on above: Performed By: #### L 501.9520, L506.0400, L501.52421, L500.4050, L500.4100 #### [facility] [address] [place], [address] T PROT 7.2 g/dL Normal 6.4-8.2 [facility] Comment on above: Performed By: #### L 501.9520, L506.0400, L501.81689, L500.4050, L500.4100 #### [facility] [address] [place], [address] Urea nitrogen [Mass/Vol] 11 mg/dL Normal 7-18 [facility] Comment on above: Performed By: #### L 501.9520, L506.0400, L501.19524, L500.4050, L500.4100 #### [facility] [address] [place], [address] Free T3on 07-01-2024 Free T3 [Mass/Vol] 2.6 pg/mL Normal 2.18-3.98 [facility] Comment on above: Performed By: #### L 501.9520, L506.0400, L501.21568, L500.4050, L500.4100 ####[facility] [address] [place], [address] Lipid Profileon 07-01-2024 Cholesterol [Mass/Vol] 260 mg/dL High 200 [facility] Comment on above: Result Comment: <200 mg/dL Desirable 200-240 mg/dL Borderline >240 mg/dL High Risk Performed By: #### L 501.9520, L506.0400, L501.95154, L500.4050, L500.4100 #### [facility] [address] [place], [address] Cholesterol in HDL [Mass/Vol] 73 mg/dL Normal [facility] Comment on above: Result Comment: The drugs N-Acetylcysteine and Metamizole may falsely depress this assay. Reference Range HDL <40 mg/dL Low HDL Cholesterol HDL >or= 60 mg/dL High HDL Cholesterol Performed By: #### L 501.9520, L506.0400, L501.06353, L500.4050, L500.4100 #### [facility] [address] [place], [address] Cholesterol in LDL [Mass/Vol] 161 mg/dL High 0-130 [facility] Comment on above: Performed By: #### L 501.9520, L506.0400, L501.29731, L500.4050, L500.4100 #### [facility] [address] [place], [address] Cholesterol in VLDL [Mass/Vol] 26 mg/dL Normal 5-40 [facility] Comment on above: Performed By: #### L 501.9520, L506.0400, L501.41987, L500.4050, L500.4100 #### [facility] [address] [place], [address] Triglyceride [Mass/Vol] 129 mg/dL Normal [facility] Comment on above: Result Comment: The drugs N-Acetylcysteine and Metamizole may falsely depress this assay. Serum Triglycerides Reference Interval Normal <150 mg/dL Borderline high 150 - 199 mg/dL High 200 - 499 mg/dL Very High > or = 500 mg/dL Performed By: #### L 501.9520, L506.0400, L501.91559, L500.4050, L500.4100 #### [facility] [address] [place], [address] T4 Free Directon 07-01-2024 T4 FREE DIRECT 1.11 ng/dL Normal 0.76-1.46 [facility] Comment on above: Performed By: #### L 501.9520, L506.0400, L501.92845, L500.4050, L500.4100 ####[facility] [address] [place], [address] Thyroid Stim Hormone (TSH)on 07-01-2024 TSH 1.520 uIU/mL Normal 0.358-3.740 [facility] Comment on above: Performed By: #### L 501.9520, L506.0400, L501.13640, L500.4050, L500.4100 ####[facility] [address] [place], [address] SCRN MAMM (CAD)W/BRITTNEY BILATo n 03-18-2024 SCRN MAMM (CAD)W/BRITTNEY BILAT [facility] Imaging Services [address] [place] [address] SCRN MAMM (CAD)W/BRITTNEY BILAT MR#: [id number] Acct: [id number] Name: KARIE PLASCENCIA Rep #: [id number] : 1945 F 79 From: Pillo pathak MD PCP: Dr. Cachorro Whitney MD Status: [facility] Study: SCRN MAMM (CAD)W/BRITTNEY BILAT Date of Exam: 02/22 02/14 Exam# [id number] Ordering Dr: Cachorro Whitney MD -[id number] MAMMOGRAPHY - BILATERAL SCREENING REASON FOR [...] delay biopsy of a clinically suspicious abnormality. [id number] Electronically Signed: Pillo Diaz MD at 8:40 EDT , CC: Dr. Cachorro Whitney MD Police Manager: Signed Normal [facility] Absolute lymphocyte countOrd ered By: Cachorro Whitney on 12-28-2023 Lymphocytes Auto (Unsp spec) [#/Vol] 1.15 10*3/uL 0.83-4.51 [facility] Automated lymphocyte count a s percentage of total leukocytesOrdered By: Cachorro Whitney on 12-28-2023 Lymphocytes/100 WBC Auto (Unsp spec) 27.7 % 19-41 [facility] Basophil percentageOrdered B y: Cachorro Whitney on 12-28-2023 Basophils/100 WBC (Bld) 0.7 % 0-1 [facility] Bilirubin [Mass/Vol] 0.40 mg/dL 0.20-1.00 [facility] Comment on above: For patients on eltr ombopag therapy, use of Dimension [place] TBIL is not recommended. Chloride [Moles/Vol] 107 mmol/L 98-107 [facility] Cholesterol [Mass/Vol] 319 mg/dL <200 [facility] Comment on above: <200 mg/dL Desirable 200-240 mg/dL Borderline >240 mg/dL High Risk Eosinophils/100 WBC (Bld) 7.0 % 0-5 [facility] Glucose [Mass/Vol] 143 mg/dL 74-106 [facility] Comment on above: Fasting Glucose resu lt greater than or equal to 126 mg/dL suggests DIABETES MELLITUS per A.D.A. criteria. Hemoglobin (Bld) [Mass/Vol] 10.1 g/dL 12.0-15.0 [facility] Monocytes/100 WBC (Bld) 8.7 % 0-10 [facility] Neutrophils (Bld) [#/Vol] 2.3 10*3/uL 2.0-7.7 [facility] Neutrophils/100 WBC (Bld) 55.7 % 47-70 [facility] Potassium [Moles/Vol] 3.8 mmol/L 3.5-5.1 [facility] Protein [Mass/Vol] 7.2 g/dL 6.4-8.2 [facility] Sodium [Moles/Vol] 140 mmol/L 136-145 [facility] Triglyceride [Mass/Vol] 116 mg/dL <199 [facility] Comment on above: The drugs N-Acetylcy steine and Metamizole may falsely depress this assay.Serum Triglycerides Reference Interval Normal <150 mg/dL Borderline high 150 - 199 mg/dL High 200 - 499 mg/dL Very High > or = 500 mg/dL WBC (Bld) [#/Vol] 4.2 10*3/uL 4.4-11.0 [facility] Determination of erythrocyte mean corpuscular volume (MCV)Ordered By: Cachorro Whitney on 12-28-2023 MCV (RBC) [Entitic vol] 72.9 fL 81-99 [facility] Erythrocyte distribution wid th ratioOrdered By: Cachorro Whitney on 12-28-2023 Erythrocyte distribution width (RBC) [Ratio] 19.0 % 11.6-14.6 [facility] Erythrocyte distribution wid th standard deviationOrdered By: Cachorro Whitney on 12-28-2023 Erythrocyte distribution width (RBC) [Entitic vol] 49.3 fL 35.1-43.9 [facility] Hematocrit Auto (Bld) [Volum e fraction]Ordered By: Cachorro Whitney on 12-28-2023 Hematocrit (Bld) [Volume fraction] 34.1 % 37-47 [facility] Immature granulocytes/100 WB C Auto (Bld)Ordered By: Cachorro Whitney on 12-28-2023 Immature granulocytes/100 WBC (Bld) 0.200 % 0.0-0.9 [facility] Comment on above: IG% - Immature Granu locytes (promyelocytes, myelocytes and metamyelocytes) > 1% indicates that a LEFT SHIFT is Present. Laboratory - Chemistry and C hemistry - challengeOrdered By: Cachorro Whitney on 12-28-2023 Albumin/Globulin [Mass ratio] 1.2 {ratio} 0.9-2.4 [facility] ALP [Catalytic activity/Vol] 57 U/L 45-117 [facility] ALT [Catalytic activity/Vol] 20 U/L 13-56 [facility] Cholesterol in HDL [Mass/Vol] 84 mg/dL >40 [facility] Comment on above: The drugs N-Acetylcy steine and Metamizole may falsely depress this assay. Reference Range HDL <40 mg/dL Low HDL Cholesterol HDL >or= 60 mg/dL High HDL Cholesterol Cholesterol in LDL [Mass/Vol] 212 mg/dL 0-130 [facility] CO2 [Moles/Vol] 27.0 mmol/L 21.0-32.0 [facility] Globulin (S) [Mass/Vol] 3.3 g/dL 2.2-4.2 [facility] Urea nitrogen/Creatinine [Mass ratio] 11.5 mg/mg 10-20 [facility] Laboratory - Hematology and Cell countsOrdered By: Cachorro Whitney on 12-28-2023 MCH (RBC) [Entitic mass] 21.6 pg 27.0-32.0 [facility] MCHC (RBC) [Mass/Vol] 29.6 g/dL 32-36 [facility] Nucleated RBC/100 WBC (Bld) [Ratio] 0 % 0-5 [facility] Platelet mean volume (Bld) [Entitic vol] 10.1 fL 6.2-12.0 [facility] Platelets (Bld) [#/Vol] 264 10*3/uL 150-450 [facility] No Panel InformationOrdered By: Cachorro Whitney on 12-28-2023 Estimated GFR (MDRD) Amer 122 mL/min >60 [facility] Comment on above: GFR Calc Estimated GFR (MDRD) Non-Af Amer 101 mL/min >60 [facility] Comment on above: Non- GFR Calc Free Triiodothyronine (T3) pg/dL 2.6 pg/mL 2.18-3.98 [facility] VLDL Cholesterol 23 mg/dL 5-40 [facility] RBC Auto (Bld) [#/Vol]Ordere d By: Cachorro Whitney on 12-28-2023 RBC (Bld) [#/Vol] 4.68 10*6/uL 4.2-5.4 [facility] Serum or plasma calcium arya urement (mass/volume)Ordered By: Cachorro Whitney on 12-28-2023 Calcium [Mass/Vol] 9.1 mg/dL 8.5-10.1 [facility] Serum or plasma creatinine m easurement (mass/volume)Ordered By: Cachorro Whitney on 12-28-2023 Creatinine [Mass/Vol] 0.61 mg/dL 0.55-1.02 [facility] Comment on above: The validity of the calculated GFR & GFRAA in patients over 70 years has not been determined. Clinical correlation is essential. Serum or plasma thyroid stim ulating hormone (TSH) measurement (units/volume)Ordered By: Cachorro Whitney on 12-28-2023 TSH Qn 2.33 uIU/mL 0.358-3.74 [facility] Serum or plasma urea nitroge n measurement (mass/volume)Ordered By: Cachorro Whitney on 12-28-2023 Urea nitrogen [Mass/Vol] 7 mg/dL 7-18 [facility] Thin prep Papanicolaou smear with manual screeningOrdered By: Cachorro Whitney on 12-28-2023 Thin prep Papanicolaou smear with manual screening 3.9 g/dL 3.2-5.0 [facility] Thin prep Papanicolaou smear with manual screening 16 U/L 15-37 [facility] Thin prep Papanicolaou smear with manual screening 6 5-15 [facility] Thin prep Papanicolaou smear with manual screening 1.20 ng/dL 0.76-1.46 [facility] Basophil percentageOrdered B y: Cachorro Whitney on 06-26-2023 Chloride [Moles/Vol] 105 mmol/L 98-107 [facility] Cholesterol [Mass/Vol] 211 mg/dL <200 [facility] Comment on above: <200 mg/dL Desirable 200-240 mg/dL Borderline >240 mg/dL High Risk Glucose [Mass/Vol] 144 mg/dL 74-106 [facility] Comment on above: Fasting Glucose resu lt greater than or equal to 126 mg/dL suggests DIABETES MELLITUS per A.D.A. criteria. Potassium [Moles/Vol] 3.9 mmol/L 3.5-5.1 [facility] Sodium [Moles/Vol] 138 mmol/L 136-145 [facility] Triglyceride [Mass/Vol] 86 mg/dL <199 [facility] Comment on above: The drugs N-Acetylcy steine and Metamizole may falsely depress this assay.Serum Triglycerides Reference Interval Normal <150 mg/dL Borderline high 150 - 199 mg/dL High 200 - 499 mg/dL Very High > or = 500 mg/dL Laboratory - Chemistry and C hemistry - challengeOrdered By: Cachorro Whitney on 06-26-2023 CO2 [Moles/Vol] 27.0 mmol/L 21.0-32.0 [facility] Free T4 [Mass/Vol] 1.17 ng/dL 0.76-1.46 [facility] Urea nitrogen/Creatinine [Mass ratio] 19.1 mg/mg 10-20 [facility] No Panel InformationOrdered By: Cachorro Whitney on 06-26-2023 Estimated GFR (MDRD) Amer 107 mL/min >60 [facility] Comment on above: GFR Calc Estimated GFR (MDRD) Non-Af Amer 89 mL/min >60 [facility] Comment on above: Non- GFR Calc Free Triiodothyronine (T3) pg/dL 2.5 pg/mL 2.18-3.98 [facility] Thyroid Stimulating Hormone (TSH) 1.74 uIU/mL 0.358-3.74 [facility] Serum or plasma calcium arya urement (mass/volume)Ordered By: Cachorro Whitney on 06-26-2023 Calcium [Mass/Vol] 9.2 mg/dL 8.5-10.1 [facility] Serum or plasma cholesterol in HDL measurement (mass/volume)Ordered By: Cachorro Whitney on 06-26-2023 Cholesterol in HDL [Mass/Vol] 72 mg/dL >40 [facility] Comment on above: The drugs N-Acetylcy steine and Metamizole may falsely depress this assay. Reference Range HDL <40 mg/dL Low HDL Cholesterol HDL >or= 60 mg/dL High HDL Cholesterol Serum or plasma cholesterol in VLDL measurement (mass/volume)Ordered By: Cachorro Whitney on 06-26-2023 Cholesterol in VLDL [Mass/Vol] 17 mg/dL 5-40 [facility] Serum or plasma creatinine m easurement (mass/volume)Ordered By: Cachorro Whitney on 06-26-2023 Creatinine [Mass/Vol] 0.68 mg/dL 0.55-1.02 [facility] Comment on above: The validity of the calculated GFR & GFRAA in patients over 70 years has not been determined. Clinical correlation is essential. Serum or plasma low density lipoprotein (LDL) cholesterol measurement (mass/volume)Ordered By: Cachorro Whitney on 06-26-2023 Cholesterol in LDL [Mass/Vol] 122 mg/dL 0-130 [facility] Serum or plasma urea nitroge n measurement (mass/volume)Ordered By: Cachorro Whitney on 06-26-2023 Urea nitrogen [Mass/Vol] 13 mg/dL 7-18 [facility] Thin prep Papanicolaou smear with manual screeningOrdered By: Cachorro Whitney on 06-26-2023 Thin prep Papanicolaou smear with manual screening 6 5-15 [facility] Basophil percentageon 2021 Chloride [Moles/Vol] 106 mmol/L 98-107 [facility] Work Phone: Cholesterol [Mass/Vol] 219 mg/dL <200 [facility] Work Phone: Comment on above: <200 mg/dL Desirable 200-240 mg/dL Borderline >240 mg/dL High Risk Glucose [Mass/Vol] 116 mg/dL 74-106 [facility] Work Phone: Comment on above: Fasting Glucose resu lt from 100 to 125 mg/dL suggests IMPAIRED HOMEOSTASIS per A.D.A. criteria. Potassium [Moles/Vol] 3.9 mmol/L 3.5-5.1 [facility] Work Phone: Sodium [Moles/Vol] 139 mmol/L 136-145 [facility] Work Phone: Triglyceride [Mass/Vol] 98 mg/dL <199 [facility] Work Phone: Comment on above: The drugs N-Acetylcy steine and Metamizole may falsely depress this assay.Serum Triglycerides Reference Interval Normal <150 mg/dL Borderline high 150 - 199 mg/dL High 200 - 499 mg/dL Very High > or = 500 mg/dL Laboratory - Chemistry and C hemistry - challengeon 06-25-2022 CO2 [Moles/Vol] 28.0 mmol/L 21.0-32.0 [facility] Work Phone: Free T4 [Mass/Vol] 1.04 ng/dL 0.76-1.46 [facility] Work Phone: Urea nitrogen/Creatinine [Mass ratio] 18.8 mg/mg 10-20 [facility] Work Phone: No Panel Informationon 06-25 Estimated GFR (MDRD) Amer 116 mL/min >60 [facility] Work Phone: Comment on above: GFR Calc Estimated GFR (MDRD) Non-Af Amer 96 mL/min >60 [facility] Work Phone: Comment on above: Non- GFR Calc Free Triiodothyronine (T3) pg/dL 2.5 pg/mL 2.18-3.98 [facility] Work Phone: Thyroid Stimulating Hormone (TSH) 1.75 uIU/mL 0.358-3.74 [facility] Work Phone: Urine Microalbumin/Creatinine Ratio 26.3 mg/g CRE <30 [facility] Work Phone: Serum or plasma calcium arya urement (mass/volume)on 06-25-2022 Calcium [Mass/Vol] 8.8 mg/dL 8.5-10.1 [facility] Work Phone: Serum or plasma cholesterol in HDL measurement (mass/volume)on 06-25-2022 Cholesterol in HDL [Mass/Vol] 78 mg/dL >40 [facility] Work Phone: Comment on above: The drugs N-Acetylcy steine and Metamizole may falsely depress this assay. Reference Range HDL <40 mg/dL Low HDL Cholesterol HDL >or= 60 mg/dL High HDL Cholesterol Serum or plasma cholesterol in VLDL measurement (mass/volume)on 06-25-2022 Cholesterol in VLDL [Mass/Vol] 20 mg/dL 5-40 [facility] Work Phone: Serum or plasma creatinine m easurement (mass/volume)on 06-25-2022 Creatinine [Mass/Vol] 0.64 mg/dL 0.55-1.02 [facility] Work Phone: Comment on above: The validity of the calculated GFR & GFRAA in patients over 70 years has not been determined. Clinical correlation is essential. Serum or plasma low density lipoprotein (LDL) cholesterol measurement (mass/volume)on 06-25-2022 Cholesterol in LDL [Mass/Vol] 121 mg/dL 0-130 [facility] Work Phone: Serum or plasma urea nitroge n measurement (mass/volume)on 06-25-2022 Urea nitrogen [Mass/Vol] 12 mg/dL 7-18 [facility] Work Phone: Thin prep Papanicolaou smear with manual screeningon 06-25-2022 Thin prep Papanicolaou smear with manual screening 5 5-15 [facility] Work Phone: Thin prep Papanicolaou smear with manual screening 8.5 mg/L NO RANGE EST. [facility] Work Phone: Urine creatinine measurement (mass/volume)on 06-25-2022 Creatinine (U) [Mass/Vol] 32.40 mg/dL NO RANGE EST. [facility] Work Phone: Basophil percentageon 2021 Basophil percentage >100 SEEN /hpf [facility] Work Phone: Chloride [Moles/Vol] 107 mmol/L 98-[address] [facility] [address] [facility] Work Phone: Cholesterol [Mass/Vol] 210 mg/dL <200 [facility] Work Phone: Comment on above: <200 mg/dL Desirable 200-240 mg/dL Borderline >240 mg/dL High Risk Glucose [Mass/Vol] 151 mg/dL 74-106 [facility] Work Phone: Comment on above: Fasting Glucose resu lt greater than or equal to 126 mg/dL suggests DIABETES MELLITUS per A.D.A. criteria. Potassium [Moles/Vol] 4.0 mmol/L 3.5-5.1 [facility] Work Phone: Sodium [Moles/Vol] 140 mmol/L 136-145 [facility] Work Phone: Triglyceride [Mass/Vol] 134 mg/dL [facility] Work Phone: Comment on above: The drugs N-Acetylcy steine and Metamizole may falsely depress this assay.Serum Triglycerides Reference Interval Normal <150 mg/dL Borderline high 150 - 199 mg/dL High 200 - 499 mg/dL Very High > or = 500 mg/dL Bilirubin Test strip Ql (U)o n 12-23-2021 Bilirubin Ql (U) Negative Negative [facility] Work Phone: Ketones Test strip Ql (U)on 12-23-2021 Ketones Ql (U) Negative Negative [facility] Work Phone: Laboratory - Chemistry and C hemistry - challengeon 12-23-2021 CO2 [Moles/Vol] 27.0 mmol/L 21.0-32.0 [facility] Work Phone: Free T4 [Mass/Vol] 1.10 ng/dL 0.76-1.46 [facility] Work Phone: Urea nitrogen/Creatinine [Mass ratio] 14.8 mg/mg 10-20 [facility] Work Phone: Mucus LM Ql (Urine sed)on Mucus Ql (Urine sed) 0 SEEN /hpf [facility] Work Phone: Nitrite Test strip Ql (U)on 12-23-2021 Nitrite Ql (U) Positive Negative [facility] Work Phone: No Panel Informationon 12-23 Estimated GFR (MDRD) Amer 122 mL/min >60 [facility] Work Phone: Comment on above: GFR Calc Estimated GFR (MDRD) Non-Af Amer 101 mL/min >60 [facility] Work Phone: Comment on above: Non- GFR Calc Free Triiodothyronine (T3) pg/dL 2.5 pg/mL 2.18-3.98 [facility] Work Phone: Thyroid Stimulating Hormone (TSH) 1.21 uIU/mL 0.358-3.74 [facility] Work Phone: Protein Test strip Ql (U)on 12-23-2021 Protein Ql (U) 15 mg/dl Negative [facility] Work Phone: Serum or plasma calcium arya urement (mass/volume)on 12-23-2021 Calcium [Mass/Vol] 8.7 mg/dL 8.5-10.1 [facility] Work Phone: Serum or plasma cholesterol in HDL measurement (mass/volume)on 12-23-2021 Cholesterol in HDL [Mass/Vol] 75 mg/dL [facility] Work Phone: Comment on above: The drugs N-Acetylcy steine and Metamizole may falsely depress this assay. Reference Range HDL <40 mg/dL Low HDL Cholesterol HDL >or= 60 mg/dL High HDL Cholesterol Serum or plasma cholesterol in VLDL measurement (mass/volume)on 12-23-2021 Cholesterol in VLDL [Mass/Vol] 27 mg/dL 5-40 [facility] Work Phone: Serum or plasma creatinine m easurement (mass/volume)on 12-23-2021 Creatinine [Mass/Vol] 0.61 mg/dL 0.55-1.02 [facility] Work Phone: Comment on above: The validity of the calculated GFR & GFRAA in patients over 70 years has not been determined. Clinical correlation is essential. Serum or plasma low density lipoprotein (LDL) cholesterol measurement (mass/volume)on 12-23-2021 Cholesterol in LDL [Mass/Vol] 108 mg/dL 0-130 [facility] Work Phone: Serum or plasma urea nitroge n measurement (mass/volume)on 12-23-2021 Urea nitrogen [Mass/Vol] 9 mg/dL 7-18 [facility] Work Phone: Squamous epithelial cells de tection in urine sediment by light microscopyon 12-23-2021 Epithelial cells.squamous LM Ql (Urine sed) 5-10 SEEN /hpf [facility] Work Phone: Thin prep Papanicolaou smear with manual screeningon 12-23-2021 Thin prep Papanicolaou smear with manual screening 6 5-15 [facility] Work Phone: Urine blood detectionon -0 RBC Ql (U) 25 /ul Negative [facility] Work Phone: RBC Ql (U) 0 SEEN /hpf [facility] Work Phone: Urine clarityon 12-23-2021 Clarity (U) Sl. Cloudy Clear [facility] Work Phone: Urine color determinationon 12-23-2021 Color (U) Yellow Yellow [facility] Work Phone: Urine glucose detectionon Glucose Ql (U) Normal mg/dl Normal [facility] Work Phone: Urine leukocyte esterase det ection by dipstickon 12-23-2021 Leukocyte esterase Test strip Ql (U) 500 /ul Negative [facility] Work Phone: Urine pHon 12-23-2021 pH (U) 6.0 [pH] [facility] Work Phone: Urine sediment bacteria coun t by microscopy (number/high power field)on 12-23-2021 Bacteria LM.HPF (Urine sed) [#/Area] 2 /[HPF] None Seen [facility] Work Phone: Urine specific gravity measu rementon 12-23-2021 Specific gravity (U) [Rel density] 1.015 [facility] Work Phone: Urobilinogen Auto test strip Ql (U)on 12-23-2021 Urobilinogen Ql (U) Normal mg/dl Normal [facility] Work Phone: Vital Signs Date Time Vital Sign Value Performing Clinician Faci lity 02-07-2025 10:05-0400 Respiratory rate 16 /min Dr. Cachorro Whitney MD Work Phone: [facility] 02-07-2025 10:05-0400 SaO2% (BldA) [Mass fraction] 97 % Dr. Cachorro Whitney MD Work Phone: [facility] 02-07-2025 10:04-0400 Body temperature 97.8 [degF] Dr. Cachorro Whitney MD Work Phone: [facility] 02-07-2025 10:04-0400 Diastolic blood pressure 54 mm[Hg] Dr. Cachorro Whitney MD Work Phone: [facility] 02-07-2025 10:04-0400 Heart rate 77 /min Dr. Cachorro Whitney MD Work Phone: [facility] 02-07-2025 10:04-0400 Systolic blood pressure 95 mm[Hg] Dr. Cachorro Whitney MD Work Phone: [facility] 02-07-2025 09:25-0400 Body temperature 97.8 [degF] Dr. Cachorro Whitney MD Work Phone: [facility] 02-07-2025 09:25-0400 Diastolic blood pressure 43 mm[Hg] Dr. Cachorro Whitney MD Work Phone: [facility] 02-07-2025 09:25-0400 Heart rate 76 /min Dr. Cachorro Whitney MD Work Phone: [facility] 02-07-2025 09:25-0400 Respiratory rate 18 /min Dr. Cachorro Whitney MD Work Phone: [facility] 02-07-2025 09:25-0400 SaO2% (BldA) [Mass fraction] 100 % Dr. Cachorro Whitney MD Work Phone: [facility] 02-07-2025 09:25-0400 Systolic blood pressure 113 mm[Hg] Dr. Cachorro Whitney MD Work Phone: [facility] 02-07-2025 07:30-0400 Body height 165.[address] Cachorro Whitney MD Work Phone: [facility] 02-07-2025 07:30-0400 Body mass index (BMI) [Ratio] 26 kg/m2 Dr. Cachorro Whitney MD Work Phone: 0(291)[phone] [place] [address] 02-07-2025 07:30-0400 Body weight [address] Cachorro Whitney MD Work Phone: [facility] 01-09-2025 13:52-0400 Body height 162.[address] Cachorro Whitney MD Work Phone: 4(772)871-186930 [address] 01-09-2025 13:52-0400 Body mass index (BMI) [Ratio] 27.9 kg/m2 Dr. Cachorro Whitney MD Work Phone: 0(918)[phone] [place] [address] 01-09-2025 13:52-0400 Body weight 73.[address] Cachorro Whitney MD Work Phone: [facility] 01-09-2025 13:52-0400 Diastolic blood pressure 75 mm[Hg] Dr. Cachorro Whitney MD Work Phone: [facility] 01-09-2025 13:52-0400 Heart rate 64 /min Dr. Cachorro Whitney MD Work Phone: [facility] 01-09-2025 13:52-0400 Respiratory rate 17 /min Dr. Cachorro Whitney MD Work Phone: [facility] 01-09-2025 13:52-0400 SaO2% (BldA) [Mass fraction] 97 % Dr. Cachorro Whitney MD Work Phone: [facility] 01-09-2025 13:52-0400 Systolic blood pressure 126 mm[Hg] Dr. Cachorro Whitney MD Work Phone: [facility] Encounters Encounter Date Encounter Type Care Provider Facility Start: 03-04-2025 ambulatory Cachorro Whitney Facility:[facility] Start: 02-23-2025 End: 02-23-[address] Cachorro Whitney MD Work Phone: -Laboratory [facility] Start: 02-23-2025 End: 02-23-[address] Cachorro Whitney MD -Laboratory [facility] Start: 02-23-2025 End: 02-23-2025 ambulatory Cachorro Whitney Facility:[facility] Start: 02-07-2025 ambulatory Cachorro Whitney Facility:[facility] Start: 02-07-2025 Non-patient / Non-visit Dr. Von Velez MD -[facility] Start: 02-07-2025 End: 02-07-2025 Admission to same day surgery center Dr. Von Velez MD -Endoscopy Work Phone: Start: 02-07-2025 End: 02-07-[address] Cachorro Whitney MD Work Phone: [facility] Work Phone: Start: 01-09-2025 End: 01-09-[address] Von Velez MD -[facility] Work Phone: Start: 01-09-2025 End: 01-09-[address] Cachorro Whitney MD Work Phone: [facility] Work Phone: Start: 12-28-2024 End: 12-28-[address] Cachorro Whitney MD Work Phone: [facility] Work Phone: Start: 12-28-2024 End: 12-28-[address] Cachorro Whitney MD -Laboratory, [facility] Start: 12-28-2024 End: 12-28-2024 ambulatory Cachorro Whitney Facility:[facility] Start: 09-06-2024 End: 09-06-2024 Patient encounter procedure Candie SANDOVALC -Laboratory, Specimen Work Phone: Start: 09-06-2024 End: 09-06-2024 ambulatory Cachorro Whitney Facility:[facility] Start: 07-01-2024 End: 07-01-2024 ambulatory Cachorro Whitney Facility:[facility] Start: 03-18-2024 End: 03-18-2024 ambulatory Cachorro Whitney Facility:[facility] Start: 12-28-2023 End: 12-28-2023 ambulatory [facility] Work Phone: Start: 12-28-2023 End: 12-28-2023 Patient encounter procedure [facility] Start: 06-26-2023 End: 06-26-2023 ambulatory [facility] Work Phone: Start: 06-26-2023 End: 06-26-2023 Patient encounter procedure [facility] Start: 07-30-2022 End: 07-30-2022 ambulatory [facility] Work Phone: Start: 07-30-2022 End: 07-30-2022 Patient encounter procedure [facility] Start: 06-25-2022 End: 06-25-2022 ambulatory [facility] Work Phone: Start: 06-25-2022 End: 06-25-2022 Patient encounter procedure [facility] Start: 12-23-2021 End: 12-23-2021 Patient encounter procedure [facility] Start: 02-23-2019 End: 02-23-2019 Outside [facility] Scheduling Comment on above: Right foot drop (Mariam ciara Dx) Procedures Date Procedure Procedure Detail Performing Clinician Start: 02-07-[address] Cachorro felipe MD Work Phone: Start: 09-06-[address] Cachorro Whitney MD Work Phone: Start: 07-30-2022 Screening mammography Plan of Treatment Date Care Activity Detail Author Start: 02-07-2025 Colonoscopy flx dx w/collj spec when pfrmd DIAGNOSTIC COLONOSCOPY [facility] Start: 02-07-2025 Esophagogastroduodenoscopy transoral diagnostic EGD DIAGNOSTIC BRUSH WASH [facility] Start: 02-07-2025 Patient discharge [facility] Start: 04-24-2019 Influenza vaccination INFLUENZA VACCINE (#1) [facility] Start: 2009 Pneumococcal vaccination PNEUMOCOCCAL VACCINE SERIES (1 of 2 - PCV13) [facility] Start: 1994 Colonoscopy COLON CANCER SCREENING DISCUSSION [facility] Start: 1994 Zoster vaccine hzv live for subcutaneous use ZOSTER (SHINGLES) VACCINE (1 of 2) [facility] Start: 1984 Fasting lipid profile LIPID SCREENING [facility] Start: 1984 Screening mammography MAMMOGRAM SCREENING DISCUSSION [facility] Start: 1965 Screening for malignant neoplasm of cervix PAP SMEAR DISCUSSION [facility] Start: 1963 Third diphtheria, tetanus and acellular pertussis (DTaP) vaccination TDAP (ADULT) [facility] Start: 1962 Tetanus vaccination TETANUS [facility] Start: 1944 Screening for osteoporosis DEXA SCAN DISCUSSION [facility] Colonoscopy [facility] Patient referral [facility] Work Phone: [facility] Payers Date Payer Category Payer Private Health Insurance [id number] 2024 Self-pay [id number] Medicare [id number] Unknown [id number] 2.16.8 [id number] Unknown [id number] 2.16.8 [id number] Unknown [id number] 2.16.8 [id number] Unknown [id number] 2.16.8 [id number] Unknown [id number] 2.16.8 [id number] Unknown [id number] 2.16.8 [id number] Unknown [id number] 2.16.8 [id number] Unknown [id number] 2.16.8 [id number] Unknown [id number] 2.16.8 [id number] Unknown [id number] 2.16.8 [id number] Social History Date Type Detail Facility Tobacco smoking status NHIS Unknown if ever smoked [facility] Sex Assigned At Not on file [facility] Start: 07-27-2020 End: 07-27-2020 Tobacco smoking status NHIS Unknown if ever smoked [facility] Start: 11-25-2018 Non-sm[address] [facility] Start: 1945 Sex Assigned At Female [facility] Start: 07-27-2020 End: 02-03-2025 Tobacco smoking status NHIS Never smoked tobacco (finding) [facility] NEGATED: Highlighted row Not [facility] Goals Date Patient Goal Desired Activity /State Mental Status Date Assessment Result Facility 02-07-2025 Cognitive function Voice/Name;Touch/Andres salas [facility] Work Phone: Clinical Notes 01-09-2025 to 02-07-2025 Note Date & Type Note Facility 02-07-2025 Consult note Note Date/Time February 07, 2025 7:42am [facility] Medical Records Department [address] [place] [address] Pre-Anesthesia Evaluation 02/07/25 0737 MR#: [id number] Acct: [id number] Name: KARIE PLASCENCIA Rep #:[id number] : 1945 79 From: Jose Raul Theodore MD PCP: Dr. Cachorro Whitney MD Status:REG S DC Y Race: C Location: [place] [address] ASA Classification* ASA Classification ASA Classification: 2 (Anemia, hypothyroid, T2DM. AVOID VERSED) Assessment & Plan Anesthesia* Anesthesia Assessment Anesthesia Assessment: Discussed sedation and/or anesthesia options, risks, benefits, and alternatives with patient/parents/legal guardian/POA. Questions invited. The patient/parents/legal guardian/POA seems to understand and agrees to proceedwith anesthesia plan. Reviewed the physical assessment, medical history, allergy history and patient home medications list prior to surgery/procedure/anesthetic and documented any changes. Performed airway and anesthesia risk assessments. Anesthesia Type Anesthesia Type: General (AVOID VERSED) History Source History Obtained from:: Patient and Chart Anesthesia Focused Assessment* Temperature: 98.6 F Pulse Rate: 71 Blood Pressure: 124/77 Respiratory Rate: 18 Pulse Ox: 100 Oxygen Delivery Method: Room Air Airway Assessment Mouth opens: >3 cm Mallampati Score: II Teeth Condition: Caps/Crowns and Missing (dentures, has some original teeth) Neck Range of motion (ROM): Full ROM Labs Anesthesia Preop lab: CBC WBC 3.5 K/mm3 (4.4-11.0) L 12/28/24 09:25 12/28/24 RBC 4.05 M/mm3 (4.2-5.4) L 12/28/24 09:25 12/28/24 Hgb 8.2 g/dL (12.0-15.0) L 12/28/24 09:25 12/28/24 Hct 27.8 % (37-47) L 12/28/24 09:25 12/28/24 Plt Count 241 K/mm3 (150-450) 12/28/24 09:25 12/28/24 CHEMISTRY Potassium 3.8 mmol/L (3.3-5.1) 12/28/24 09:25 12/28/24 Sodium 141 mmol/L (133-145) 12/28/24 09:25 12/28/24 BUN 7 mg/dL (4-19) 12/28/24 09:25 12/28/24 Creatinine 0.57 mg/dL (0.70-1.20) L 12/28/24 09:25 Glucose 103 mg/dL (70-99) H 12/28/24 09:25 12/28/24 POC Glucose 162 mg/dL (70-110) H 10/28/19 07:56 10/28/19 TSH 1.220 uIU/mL (0.300-4.200) 12/28/24 09:25 05/03/17 COAG Pre-Assessment Diagnosis/Proposed Procedure Planned Operative Procedure(s): COLONOSCOPY/EGD Anesthesia History 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 When Was Last Pacemaker Check QUESTION #4 FULL TEXT: You/Your Family Experience fever (hyperthermia) with Anesthesia Last Oral Intake Last Oral intake: Last Oral Intake NPO since 21:00 02/07/25 07:30 Meds taken in AM with sips of No 02/07/25 07:30 water? Meds patient instructed to take am of surgery PONV PONV - nuclear criticality safety engineer: PONV - nuclear criticality safety engineer Female Yes 02/03/25 09:14 HX of Motion Sickness No 02/03/25 09:14 HX of N/V After Surgery No 02/03/25 09:14 Non-Smoker Yes 02/03/25 09:14 Duration of Surgery greater No 02/03/25 09:14 than 60 minutes Number of Risk Factors 2 02/03/25 09:14 PONV Score Moderate Risk 02/03/25 09:14 Height & Weight Height & Weight: Anesthesia: Height & Weight Height 5 ft 5 in 02/07/25 07:30 Weight: 71 kg 02/07/25 07:30 Body Mass Index (BMI) 26.0 02/07/25 07:30 Respiratory Assessment Respiratory Assessment - nuclear criticality safety engineer: Respiratory Tract Infection Hx - nuclear criticality safety engineer Hx Respiratory Tract Infection No 02/03/25 09:14 STOP Sleep Apnea STOP Sleep Apnea - nuclear criticality safety engineer: STOP Sleep Apnea - nuclear criticality safety engineer Hx Hypertension No: hypotension 02/03/25 09:14 Hx [...] Tobacco Use History Tobacco Use History - nuclear criticality safety engineer: Tobacco Use History - nuclear criticality safety engineer Tobacco Use Smoking Status Never smoker 02/03/25 09:14 Hx Tobacco Use No 02/03/25 09:14 Years Smoking Packs Smoked per Day Smoking Cessation Date was within the last 15 years Hx Smoking Cessation Date Hx Smoking Cessation Counseling Hematologic Medial History Hematologic Hx - nuclear criticality safety engineer: Hematologic Medical Hx - machine washer Hx of Blood Transfusion Yes 02/03/25 09:14 Hx of Transfusion in last 3 No 02/03/25 09:14 Months Date of Last Transfusion (if within last 3 months) Ever experience any problems No 02/03/25 09:14 with transfusion(s)? Specify any problems Hx of Preganancy in last 3 No 02/03/25 09:14 Months Nurse Filling Out Transfusion VCHRISTIN 02/03/25 09:14 & Questions: Date: 02/03/25 02/03/25 09:14 Time: 09:15 02/03/25 09:14 Patient unable to answer at this time (ie. confused, unrespo /Reproduction History /Reproductive History - nuclear criticality safety engineer: /Reproductive Hx- nuclear criticality safety engineer Hx Now No 02/03/25 09:14 Gestational Age (in weeks): EDC: Hx Hx Para Hx Section SAB No 02/03/25 09:14 Active Medications Active Medications: Current Medications Generic Name Dose Route Start Last Admin Trade Name Freq PRN Reason Stop Dose Admin Lactated Ringer's 1,000 mls @ 15 mls/hr 02/07/25 07:15 02/07/25 07:33 IV 15 mls/hr .Q48H CHITRA Administration PFSH Medical History (Updated 02/03/25 @ 09:14 by Elena Matias) Wears partial dentures Wears glasses Post-menopausal Non-smoker History of echocardiogram History of stress test History of irregular heartbeat Foot drop, right Anemia Carpal tunnel syndrome Thyroid disease Fatigue Dysuria Hyperlipemia Diabetes Home Medications ?Medication ?Instructions ?Recorded ?Last Taken ?Type calcium carbonate (Calcium 500) 500 mg PO DAILY Unknown History folic acid 0.8 mg capsule 800 mcg PO QDAY 10/13/17 Unk nown History glimepiride 1 mg tablet 0.5 mg PO DAILY 10/13/17 Unk nown History levothyroxine 75 mcg capsule 75 mcg PO DAILY 10/13/17 02/16/19 08:00 History 75 MCG metformin 1,000 mg tablet 1,000 mg PO BID 10/13/17 Unk nown History multivitamin 1 tab PO QAM 10/13/17 Unknow n History magnesium oxide 400 mg (241.3 mg 400 mg PO DAILY 10/16 Unknown History magnesium) tablet aspirin 81 mg tablet,delayed 81 mg PO DAILY heart heal th 10/24/19 01/31/25 History release ferrous sulfate 325 mg (65 mg 325 mg PO TID 01/09/25 0 01/31/25 History iron) tablet (Feosol) Allergy/AdvReac Type Severity Reaction Status Date / Time No Known Allergies Allergy Verified 02/07/25 07:29 Family History (Updated 01/09/25 @ 13:52 by Ciara Hernandez) Mother Uterine cancer Sister Heart disease Thyroid disorder Surgical History (Updated 02/03/25 @ 09:14 by Elena Matias) History of cardiac catheterization Hx of colonoscopy History of esophagogastroduodenoscopy (EGD) History of carpal tunnel release of both wrists H/O gastric bypass Social History Smoking Status: Never smoker second hand exposure: No alcohol intake: never substance use type: does not use caffeine: No what type of physical activity do you participate in: walking frequency: 3-4 times per week seatbelt use: always Review of Systems (Anesthesia) ROS Narrative System reviewed and no additional complaints, except as documented. Physical Exam Const alert, oriented x3 and average body habitus Neck full ROM Resp normal respiratory effort, normal air movement and clear to auscultation bilaterally Cardio regular rate, regular rhythm, no murmurs and diaphoretic 02/07/25 0742 <Electronically signed by Jose Raul Theodore MD> Date _ Jose Raul Theodore MD Cosigner Signature: Date CC: ~ Signed [facility] Work Phone: 1(746) 938-960606-17-2025 Procedure note [facility] Medical Records Department [address] [place] [address] Colonoscopy Report MR#: [id number] Acct: [id number] Name: KARIE PLASCENCIA Rep #:[id number] : 1945 79 From: Von bhandari MD PCP: Dr. Cachorro Whitney MD Status:REG S DC Patient Name: Karie Plascencia Procedure Date: 02/07/2025 8:32 AM Date of : 1945 Age: 79 Procedure: Colonoscopy Indications: Iron deficiency anemia Providers: Von Velez MD Referring MD: Cachorro Whitney MD Medicines: Propofol per Anesthesia Patient Profile: This is an 79 year old female. Refer to note in patient chart for documentation of history and physical. Last Colonoscopy: more than 3 years ago. Complications: No immediate complications. Procedure: Pre-Anesthesia Assessment: - Prior to the procedure, a History and Physical was performed, and patient medications and allergies were reviewed. The patient's tolerance of previous anesthesia was also reviewed. The risks and benefits of the procedure and the sedation options and risks were discussed with the patient. All questions were answered, and informed consent was obtained. Prior Anticoagulants: The patient has taken no anticoagulant or antiplatelet agents. After reviewing the risks and benefits, the patient was deemed in satisfactory condition to undergo the procedure. - Prior to the procedure, a History and Physical was performed, and patient medications and allergies were reviewed. The patient's tolerance of previous anesthesia was also reviewed. The risks and benefits of the procedure and the sedation options and risks were discussed with the patient. All questions were answered, and informed consent was obtained. Prior Anticoagulants: The patient has taken no anticoagulant or antiplatelet agents. After reviewing the risks and benefits, the patient was deemed in satisfactory condition to undergo the procedure. After I obtained informed consent, the scope was passed under direct vision. Throughout the procedure, the patient's blood pressure, pulse, and oxygen saturations were monitored continuously. The colonoscope was introduced through the anus and advanced to the cecum, identified by appendiceal orifice and ileocecal valve. The colonoscopy was performed without difficulty. The patient tolerated the procedure well. The quality of the bowel preparation was good. The ileocecal valve, appendiceal orifice, and rectum were photographed. Scope In: 8:33:48 AM Scope Withdrawal Time 0 hours 6 minutes 45 seconds Scope Out: 8:54:00 AM Total Procedure Duration Time 0 hours 20 minutes 12 seconds Findings: The entire examined colon appeared normal on direct and retroflexion views. Impression: - The entire examined colon is normal on direct and retroflexion views. - No specimens collected. Recommendation: - Discharge patient to home. - Resume previous diet. - Continue present medications. - Repeat colonoscopy is not recommended due to current age (66 years or older) for screening purposes. Procedure Code(s): --- Professional --- 04460, Colonoscopy, flexible; diagnostic, including collection of specimen(s) by brushing or washing, when performed (separate procedure) Diagnosis Code(s): --- Professional --- D50.9, Iron deficiency anemia, unspecified CPT copyright 2021 [employer]. All rights reserved. The codes documented in this report are preliminary and upon puddler helper review may be revised to meet current compliance requirements. Von Velez MD 02/07/2025 8:59:20 AM This report has been signed electronically. Number of Addenda: 0 Note Initiated On: 02/07/2025 8:32 AM 02/07/25 0859 Date _ Von Velez MD Cosigner Signature: Date (if indicated) CC: Dr. Von Velez MD; Dr. Cachorro Whitney MD ~ Date Dictated: 02/07/25831 Date Transcribed: Police Manager: AC Signed [facility]06-17-2025 Procedure note [facility] Medical Records Department [facility] [place] [address] Operative Report - CC Letter MR#: [id number] Acct: [id number] Name: KARIE PLASCENCIA Rep #:[id number] : 1945 79 From: Von bhandari MD PCP: Dr. Cachorro Whitney MD Status:REG S DC 02/07/2025 Cachorro Whitney MD [address] [place] [address] Re : Colonoscopy procedure for Karie Plascencia Dear Dr. Whitney This procedure was performed on Friday, February 07, 2025. My impressions and recommendations are as follows: Impressions : - The entire examined colon is normal on direct and retroflexion views. - No specimens collected. Recommendations : - Discharge patient to home. - Resume previous diet. - Continue present medications. - Repeat colonoscopy is not recommended due to current age (66 years or older) for screening purposes. My findings are described in the full procedure note, which is enclosed. If I can be of further assistance, please feel free to contact me at Doctor phone number(s): , Work: . Sincerely, Von Velez MD 02/07/2025 8:59:20 AM This report has been signed electronically. 02/07/25858 Date _ Von Velez MD Cosign Signature: Date (if indicated) CC: Dr. Von Velez MD; Dr. Cachorro Whitney MD ~ Date Dictated: 02/07/25831 Date Transcribed: Police Manager: ALTAGRACIA Signed [facility]06-17-2025 Procedure note [facility] Medical Records Department [address] [place] [address] EGD Report MR#: [id number] Acct: [id number] Name: KARIE PLASCENCIA Rep #:[id number] : 1945 79 From: Von bhandari MD PCP: Dr. Cachorro Whitney MD Status:REG S DC Patient Name: Karie Plascencia Procedure Date: 02/07/2025 8:23 AM Date of : 1945 Age: 79 Procedure: Upper GI endoscopy Indications: Iron deficiency anemia Providers: Von Velez MD Referring MD: Cachorro Whitney MD Medicines: Propofol per Anesthesia Patient Profile: This is an 79 year old female. Refer to note in patient chart for documentation of history and physical. Complications: No immediate complications. Procedure: Pre-Anesthesia Assessment: - Prior to the procedure, a History and Physical was performed, and patient medications and allergies were reviewed. The patient's tolerance of previous anesthesia was also reviewed. The risks and benefits of the procedure and the sedation options and risks were discussed with the patient. All questions were answered, and informed consent was obtained. Prior Anticoagulants: The patient has taken no anticoagulant or antiplatelet agents. After reviewing the risks and benefits, the patient was deemed in satisfactory condition to undergo the procedure. After obtaining informed consent, the endoscope was passed under direct vision. Throughout the procedure, the patient's blood pressure, pulse, and oxygen saturations were monitored continuously. The colonoscope was introduced through the mouth, and advanced to the second part of duodenum. The upper GI endoscopy was accomplished without difficulty. The patient tolerated the procedure well. Scope In: 8:30:58 AM Scope Out: 8:32:32 AM Total Procedure Duration Time 0 hours 1 minute 34 seconds Findings: The esophagus was normal. The stomach was normal. The examined duodenum was normal. Impression: - Normal esophagus. - Normal stomach. - Normal examined duodenum. - No specimens collected. Recommendation: - Discharge patient to home. - Resume previous diet. - Continue present medications. Procedure Code(s): --- Professional --- 22250, Esophagogastroduodenoscopy, flexible, transoral; diagnostic, including collection of specimen(s) by brushing or washing, when performed (separate procedure) Diagnosis Code(s): --- Professional --- D50.9, Iron deficiency anemia, unspecified CPT copyright 2021 [employer]. All rights reserved. The codes documented in this report are preliminary and upon puddler helper review may be revised to meet current compliance requirements. Von Velez MD 02/07/2025 8:56:06 AM This report has been signed electronically. Number of Addenda: 0 Note Initiated On: 02/07/2025 8:23 AM 02/07/25855 Date _ Von Velez MD Cosigner Signature: Date (if indicated) CC: Dr. Von Velez MD; Dr. Cachorro Whitney MD ~ Date Dictated: 02/07/25822 Date Transcribed: Police Manager: AC Signed [facility]06-17-2025 Procedure note [facility] Medical Records Department [address] [place] [address] Operative Report - CC Letter MR#: [id number] Acct: [id number] Name: KARIE PLASCENCIA Rep #:[id number] : 1945 79 From: Von bhandari MD PCP: Dr. Cachorro Whitney MD Status:REG S DC 02/07/2025 Cachorro Whitney MD [address] [place] [id number] Re : Upper GI endoscopy procedure for Karie Plascencia Dear Dr. Whitney This procedure was performed on Friday, February 07, 2025. My impressions and recommendations are as follows: Impressions : - Normal esophagus. - Normal stomach. - Normal examined duodenum. - No specimens collected. Recommendations : - Discharge patient to home. - Resume previous diet. - Continue present medications. My findings are described in the full procedure note, which is enclosed. If I can be of further assistance, please feel free to contact me at Doctor phone number(s): , Work: . Sincerely, Von Velez MD 02/07/2025 8:56:06 AM This report has been signed electronically. 02/07/25855 Date _ Von Velez MD Cosigner Signature: Date (if indicated) CC: Dr. Von Velez MD; Dr. Cachorro Whitney MD ~ Date Dictated: 02/07/25822 Date Transcribed: Police Manager: ALTAGRACIA Signed [facility]06-17-2025 History and physical note [facility] Medical Records Department [address] [place] [address] History & Physical Exam 02/07/25814 MR#: [id number] Acct: [id number] Name: KARIE PLASCENCIA Rep #:[id number] : 1945 79 From: Von bhandari MD PCP: Dr. Cachorro Whitney MD Status:REG S DC Location: [facility] History and Physical Date of Admission: 02/07/25 Intake Vital Signs 01/08/2108:19 01/09/2513:52 Height 5 ft 4 in 5 ft [...] 500) 500 mg PO DAILY 10/13/17 01/09/25 Histor y folic acid 0.8 mg capsule 800 mcg PO QDAY 10/13/17 01/09/25 Histor y glimepiride 1 mg tablet 0.5 mg PO BID 10/13/17 01/09/25 History levothyroxine 75 mcg capsule 75 mcg PO DAILY 10/13/17 01/09/25 Histor y metformin 1,000 mg tablet 1,000 mg PO BID 10/13/17 01/09/25 Histor y multivitamin 1 tab PO QAM 10/13/17 01/09/25 History magnesium oxide 400 mg (241.3 mg 400 mg PO DAILY 10/16/17 01/09/25 Histor y magnesium) tablet rosuvastatin 5 mg tablet 5 mg PO QODAY 01/20/19 01/09/25 History aspirin 81 mg tablet,delayed 81 mg PO DAILY heart health 10/24/19 History release ferrous sulfate 325 mg (65 mg 325 mg PO TID 01/09/25 01/09/25 History iron) tablet (Feosol) Have you fallen in the past year?: No PFSH Medical History Foot drop, right Anemia Carpal tunnel syndrome Thyroid disease Fatigue Dysuria Hyperlipemia Diabetes Surgical History H/O gastric bypass Family History (Updated 01/09/25 @ 13:52 by Ciara Hernandez) Mother Uterine cancerSister Heart disease Thyroid disorder Social History Smoking [...] cough, No COPD, No asthma, No emphysema andNo wheezing Gastro Gastrointestinal: No abdominal pain, No [...] headache(s), No lack of coordination, No loss ofvision, No memoryloss, No numbness, No other visual disturbances, No [...] proceed with procedure. Von Velez MD Pager: [facility] [address] [place] [address], [address] [place] [address] Office: I have examined the patient and the H&P has been reviewed. There are no clinicalchanges since date of exam. 02/07/25814 Cosigner Signature (if applicable): CC: Dr. Von Velez MD; Dr. Cachorro Whitney MD~ Signed [facility]06-17-2025 [facility] Medical Records Department [address] [place] [address] History Physical Exam 02/07/25814 MR#: [id number] Acct: [id number] Name: KARIE PLASCENCIA Rep #: [id number] : 1945 79 From: Von Velez MD PCP: Dr. Cachorro Whitney MD Status:[facility] Location: [place] [address] History and Physical Date of Admission: 02/07/25 Intake Vital Signs 01/08/2108:19 01/09/2513:52 Height 5 ft 4 in 5 ft [...] tablet 0.5 mg PO BID 10/13/17 01/09/25 History levothyroxine 75 mcg capsule 75 mcg PO DAILY 10/13/17 01/09/25 History metformin 1,000 mg tablet 1,000 mg PO BID 10/13/17 01/09/25 History multivitamin 1 tab PO QAM 10/13/17 01/09/25 History magnesium oxide 400 mg (241.3 mg 400 mg PO DAILY 10/16/17 01/09/25 History magnesium) tablet rosuvastatin 5 mg tablet 5 mg PO QODAY 01/20/19 01/09/25 History aspirin 81 mg tablet,delayed 81 mg PO DAILY heart health 10/24/19 01/09/25 Hist ory release ferrous sulfate 325 mg (65 mg 325 mg PO TID 01/09/25 01/09/25 History iron) tablet (Feosol) Have you fallen in the past year?: No PFSH Medical History Foot drop, right Anemia Carpal tunnel syndrome Thyroid disease Fatigue Dysuria Hyperlipemia Diabetes Surgical History H/O gastric bypass Family History (Updated 01/09/25 @ 13:52 by Ciara Hernandez) Mother Uterine cancerSister Heart disease Thyroid disorder Social History Smoking [...] visual inspection and full ROM Chest Chest pal (more content not included)...[facility]06-17-2025 Consult note [facility] Medical Records Department [address] [place] [address] Pre-Anesthesia Evaluation 02/07/25 0737 MR#: [id number] Acct: [id number] Name: KARIE PLASCENCIA Rep #:[id number] : 1945 79 From: Jose Raul Theodore MD PCP: Dr. Cachorro Whitney MD Status:REG S DC Y Race: C Location: [place] [address] ASA Classification* ASA Classification ASA Classification: 2 (Anemia, hypothyroid, T2DM. AVOID VERSED) Assessment & Plan Anesthesia* Anesthesia Assessment Anesthesia Assessment: Discussed sedation and/or anesthesia options, risks, benefits, and alternatives with patient/parents/legal guardian/POA. Questions invited. The patient/parents/legal guardian/POA seems to understand and agrees to proceedwith anesthesia plan. Reviewed the physical assessment, medical history, allergy history and patient home medications list prior to surgery/procedure/anesthetic and documented any changes. Performed airway and anesthesia risk assessments. Anesthesia Type Anesthesia Type: General (AVOID VERSED) History Source History Obtained from:: Patient and Chart Anesthesia Focused Assessment* Temperature: 98.6 F Pulse Rate: 71 Blood Pressure: 124/77 Respiratory Rate: 18 Pulse Ox: 100 Oxygen Delivery Method: Room Air Airway Assessment Mouth opens: >3 cm Mallampati Score: II Teeth Condition: Caps/Crowns and Missing (dentures, has some original teeth) Neck Range of motion (ROM): Full ROM Labs Anesthesia Preop lab: CBC WBC 3.5 K/mm3 (4.4-11.0) L 12/28/24 09:25 12/28/24 RBC 4.05 M/mm3 (4.2-5.4) L 12/28/24 09:12/28/24 Hgb 8.2 g/dL (12.0-15.0) L 12/28/24 09:25 12/28/24 Hct 27.8 % (37-47) L 12/28/24 09:25 12/28/24 Plt Count 241 K/mm3 (150-450) 12/28/24 09:25 12/28/24 CHEMISTRY Potassium 3.8 mmol/L (3.3-5.1) 12/28/24 09:25 12/28/24 Sodium 141 mmol/L (133-145) 12/28/24 09:25 12/28/24 BUN 7 mg/dL (4-19) 12/28/24 09:25 12/28/24 Creatinine 0.57 mg/dL (0.70-1.20) L 12/28/24 09:25 Glucose 103 mg/dL (70-99) H 12/28/24 09:25 12/28/24 POC Glucose 162 mg/dL (70-110) H 10/28/19 07:56 10/28/19 TSH 1.220 uIU/mL (0.300-4.200) 12/28/24 09:25 0503/17 COAG Pre-Assessment Diagnosis/Proposed Procedure Planned Operative Procedure(s): COLONOSCOPY/EGD Anesthesia History 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 When Was Last Pacemaker Check QUESTION #4 FULL TEXT: You/Your Family Experience fever (hyperthermia) with Anesthesia Last Oral Intake Last Oral intake: Last Oral Intake NPO since 21:00 02/07/25 07:30 Meds taken in AM with sips of No 02/07/25 07:30 water? Meds patient instructed to take am of surgery PONV PONV - nuclear criticality safety engineer: PONV - nuclear criticality safety engineer Female Yes 02/03/25 09:14 HX of Motion Sickness No 02/03/25 09:14 HX of N/V After Surgery No 02/03/25 09:14 Non-Smoker Yes 02/03/25 09:14 Duration of Surgery greater No 02/03/25 09:14 than 60 minutes Number of Risk Factors 2 02/03/25 09:14 PONV Score Moderate Risk 02/03/25 09:14 Height & Weight Height & Weight: Anesthesia: Height & Weight Height 5 ft 5 in 02/07/25 07:30 Weight: 71 kg 02/07/25 07:30 Body Mass Index (BMI) 26.0 02/07/25 07:30 Respiratory Assessment Respiratory Assessment - nuclear criticality safety engineer: Respiratory Tract Infection Hx - nuclear criticality safety engineer Hx Respiratory Tract Infection No 02/03/25 09:14 STOP Sleep Apnea STOP Sleep Apnea - nuclear criticality safety engineer: STOP Sleep Apnea - nuclear criticality safety engineer Hx Hypertension No: hypotension 02/03/25 09:14 Hx [...] than talking or can be heard through closeddoors)? Tobacco Use History Tobacco Use History - nuclear criticality safety engineer: Tobacco Use History - nuclear criticality safety engineer Tobacco Use Smoking Status Never smoker 02/03/25 09:14 Hx Tobacco Use No 02/03/25 09:14 Years Smoking Packs Smoked per Day Smoking Cessation Date was within the last 15 years Hx Smoking Cessation Date Hx Smoking Cessation Counseling Hematologic Medial History Hematologic Hx - nuclear criticality safety engineer: Hematologic Medical Hx - machine washer Hx of Blood Transfusion Yes 02/03/25 09:14 Hx of Transfusion in last 3 No 02/03/25 09:14 Months Date of Last Transfusion (if within last 3 months) Ever experience any problems No 02/03/25 09:14 with transfusion(s)? Specify any problems Hx of Preganancy in last 3 No 02/03/25 09:14 Months Nurse Filling Out Transfusion VCHRISTIN 02/03/25 09:14 & Questions: Date: 02/03/25 02/03/25 09:14 Time: 09:15 02/03/25 09:14 Patient unable to answer at this time (ie. confused, unrespo /Reproduction History /Reproductive History - nuclear criticality safety engineer: /Reproductive Hx- nuclear criticality safety engineer Hx Now No 02/03/25 09:14 Gestational Age (in weeks): EDC: Hx Hx Para Hx Section SAB No 02/03/25 09:14 Active Medications Active Medications: Current Medications Generic Name Dose Route Start Last Admin Trade Name Freq PRN Reason Stop Dose Admin Lactated Ringer's 1,000 mls @ 15 mls/hr 02/07/25 07:15 02/07/25 07:33 IV 15 mls/hr .Q48H CHITRA Administration PFSH Medical History (Updated 02/03/25 @ 09:14 by Elena Matias) Wears partial dentures Wears glasses Post-menopausal Non-smoker History of echocardiogram History of stress test History of irregular heartbeat Foot drop, right Anemia Carpal tunnel syndrome Thyroid disease Fatigue Dysuria Hyperlipemia Diabetes Home Medications ?Medication ?Instructions ?Recorded ?Last Taken ?Type calcium carbonate (Calcium 500) 500 mg PO DAILY Unknown History folic acid 0.8 mg capsule 800 mcg PO QDAY 10/13/17 Unk nown History glimepiride 1 mg tablet 0.5 mg PO DAILY 10/13/17 Unk nown History levothyroxine 75 mcg capsule 75 mcg PO DAILY 10/13/17 02/16/19 08:00 History 75 MCG metformin 1,000 mg tablet 1,000 mg PO BID 10/13/17 Unk nown History multivitamin 1 tab PO QAM 10/13/17 Unknow n History magnesium oxide 400 mg (241.3 mg 400 mg PO DAILY 10/16 Unknown History magnesium) tablet aspirin 81 mg tablet,delayed 81 mg PO DAILY heart heal th 10/24/19 01/31/25 History release ferrous sulfate 325 mg (65 mg 325 mg PO TID 01/09/25 0 01/31/25 History iron) tablet (Feosol) Allergy/AdvReac Type Severity Reaction Status Date / Time No Known Allergies Allergy Verified 02/07/25 07:29 Family History (Updated 01/09/25 @ 13:52 by Ciara Hernandez) Mother Uterine cancer Sister Heart disease Thyroid disorder Surgical History (Updated 02/03/25 @ 09:14 by Elena Matias) History of cardiac catheterization Hx of colonoscopy History of esophagogastroduodenoscopy (EGD) History of carpal tunnel release of both wrists H/O gastric bypass Social History Smoking Status: Never smoker second hand exposure: No alcohol intake: never substance use type: does not use caffeine: No what type of physical activity do you participate in: walking frequency: 3-4 times per week seatbelt use: always Review of Systems (Anesthesia) ROS Narrative System reviewed and no additional complaints, except as documented. Physical Exam Const alert, oriented x3 and average body habitus Neck full ROM Resp normal respiratory effort, normal air movement and clear to auscultation bilaterally Cardio regular rate, regular rhythm, no murmurs and diaphoretic 02/07/25 0742 > Date _ Jose Raul Theodore [facility] Signature: Date CC: ~ Signed [facility]05-19-2025 Evaluation note* Diagnosis Onset Date Resolution Status Admit Date Anemia acute January 09, 2025 1:32pm H/O gastric bypass acute January 092024 1:32pm [facility] Work Phone: 1(476) 666-597305-19-2025 [facility] [address] [place] [address]. [address] [place], [place] [address] OFFICE VISIT Date of Service: 01/09/25 MR#: [id number] Acct: [id number] Name: KARIE PLASCENCIA Rep #: [id number] : 1945 Provider: Dr. Maggi Velez MD Age/Sex: 79/F Location: [facility] Status: Signed Intake Vital Signs 01/07/21 [...] cough, No COPD, No asthma, No emphysema andNo wheezing Gastro Gastrointestinal: No abdominal pain, No [...] proceed with procedure. Von Velez MD Pager: [facility] [address] [place] [address] [address] [place] [address] Office: Coding Level of Care Code Off vis,est,level 3 Diagnoses H/O gastric bypass Z98.84 Iron deficiency anemia, unspecified iron deficiency anemia type D50.9 Anemia type: iron deficiency Iron deficiency anemia type: unspecified iron deficiency Clinical Quality Measures Falls Risk Screening/Assistive Devices Have you fallen in the past year?: No 01/09/25 1400 john PALACIOS> Date _ Von Velez MD Cosigner Signature: Date (if applicable) CC: Dr. Cachorro Whitney MD ~ [facility]05-19-2025 Progress note Author Von Velez [facility] Services Note Date/Time January 09, 2025 2:00p m [facility] [address] [place] [address] OFFICE VISIT Date of Service: 01/09/25 MR#: [id number] Acct: [id number] Name: KARIE PLASCENCIA Rep #: [id number] : 1945 Provider: Dr. Maggi Velez MD Age/Sex: 79/F Location: [facility] Status: Signed Intake Vital Signs 01/07/21 [...] proceed with procedure. Von Velez MD Pager: [facility] [address], [address] [place] [address] Office: Coding Level of Care Code Off [...] applicable) CC: Dr. Cachorro Whitney MD ~ [email or web address] Work Phone: Evaluation noteNo assessment information available [facility] Work Phone: Evaluation note* Diagnosis Onset Date Resolution Status Admit Date Anemia acute January 09, 2025 1:32pm H/O gastric bypass acute January 092024 1:32pm [email or web address] Work Phone: History and physical note Author Vno Velez [facility] Note Date/Time February 07, 2025 8:15 am [facility] Medical Records Department [address] [place] [address] History & Physical Exam 02/07/2515 MR#: [id number] Acct: [id number] Name: KARIE PLASCENCIA Rep #:[id number] : 1945 79 From: Von bhandari MD PCP: Dr. Cachorro Whitney MD Status:[facility] Location: [place] [address] History and Physical Date of Admission: 02/07/25 Intake Vital Signs 01/08/2108:19 01/09/2513:52 Height 5 ft 4 in 5 ft [...] 500) 500 mg PO DAILY 10/13/17 01/09/25 Histor y folic acid 0.8 mg capsule 800 mcg PO QDAY 10/13/17 01/09/25 Histor y glimepiride 1 mg tablet 0.5 mg PO BID 10/13/17 01/09/25 History levothyroxine 75 mcg capsule 75 mcg PO DAILY 10/13/17 01/09/25 Histor y metformin 1,000 mg tablet 1,000 mg PO BID 10/13/17 01/09/25 Histor y multivitamin 1 tab PO QAM 10/13/17 01/09/25 History magnesium oxide 400 mg (241.3 mg 400 mg PO DAILY 10/16/17 01/09/25 Histor y magnesium) tablet rosuvastatin 5 mg tablet 5 mg PO QODAY 01/20/19 01/09/25 History aspirin 81 mg tablet,delayed 81 mg PO DAILY heart health 10/24/19 History release ferrous sulfate 325 mg (65 mg 325 mg PO TID 01/09/25 01/09/25 History iron) tablet (Feosol) Have you fallen in the past year?: No PFSH Medical History Foot drop, right Anemia Carpal tunnel syndrome Thyroid disease Fatigue Dysuria Hyperlipemia Diabetes Surgical History H/O gastric bypass Family History (Updated 01/09/25 @ 13:52 by Ciara Hernandez) Mother Uterine cancerSister Heart disease Thyroid disorder Social History Smoking [...] headache(s), No lack of coordination, No loss ofvision, No memory loss, No numbness, No other [...] proceed with procedure. Von Velez MD Pager: [facility] [address] [place] [address], [address] [place] [address] Office: I have examined the patient and the H&P has been reviewed. There are no clinicalchanges since date of exam. 02/07/25 0815 <Electronically signed by Von Velez MD> Cosigner Signature (if applicable): CC: Dr. Von Velez MD; Dr. Cachorro Whintey MD~ Signed [facility] Work Phone: Reason for referral (narrative)No reason for referral information availableWCleveland [facility] Work Phone: Reason for Referral Status Reason Specialty Diagnoses / Procedures Referred By Contact Referred To Contact New Request Neurology Diagnoses Right foot drop Schinner, Sidney, MD [address] [place] [address] Assessments Diagnosis Right foot drop- Primary Other acquired deformity of ankle and foot Advance Directives No Advanced Directives Records Found Advance Directive Response Recorded Date/ Time Living Will Yes October 24, 2019 11:09am Power of Lithographer Helper Yes October 23 0 11:09am Advance Directive Response Recorded Date/ Time Living Will Yes October 24, 2019 10:09am Power of Lithographer Helper Yes October 23 0 10:09am Advance Directive Response Recorded Date/ Time Do you have a Healthcare Power of Lithographer Helper? Yes February 03, 2025 9:14am Chief Complaint and Reason for Visit Chief [...] 2024 End: September 06, 2024 Candie Calderon COMMUNICATIONS TOWER CLIMBER, COMMUNICATIONS TOWER CLIMBER-C Attending Provider Active Start: September 06, 2024 [...] January 09, 2025 End: January 09, 2025 Team Status: Active Member Role Status Dates Dr. Cachorro Whitney MD Primary Care Provider Active Team Status: Inactive Member Role Status Dates Dr. Cachorro Whitney MD Primary Care Provider Active Start: February 07, 2025 End: February 07, 2025 Dr. Cachorro Whitney MD Referring Provider Active Start: February 07, 2025 End: February 07, 2025 Dr. Von Velez MD Attending Provider Active Start: February 07, 2025 End: February 07, 2025 Team Status: Active Member Role Status Dates Dr. Cachorro Whitney MD Primary Care Provider Active Start: February 07, 2025 Dr. Cachorro Whitney MD Referring Provider Active Start: February 07, 2025 Dr. Von Velez MD Attending Provider Active Start: February 07, 2025 Dr. Von Velez MD Other Provider Active Start: February 07, 2025 Team Status: Active Member Role/Relationship Status Dates Dr. Cachorro Whitney MD Primary Care Provider Active Team Status: Inactive Member Role/Relationship Status Dates Dr. Cachorro Whitney MD Primary Care Provider Active Start: December 28, 2024 End: December 28, 2024 Dr. Cachorro Whitney MD Attending Provider Active Start: December 28, 2024 End: December 28, 2024 Dr. Cachorro Whitney MD Referring Provider Active Start: December 28, 2024 End: December 28, 2024 Team Status: Inactive Member Role/Relationship Status Dates Dr. Cachorro Whitney MD Primary Care Provider Active Start: January 09, 2025 End: January 09, 2025 Dr. Cachorro Whitney MD Referring Provider Active Start: January 09, 2025 End: January 09, 2025 Dr. Von Velez MD Attending Provider Active Start: January 09, 2025 End: January 09, 2025 Team Status: Inactive Member Role/Relationship Status Dates Dr. Cachorro Whitney MD Primary Care Provider Active Start: February 07, 2025 End: February 07, 2025 Dr. Cachorro Whitney MD Referring Provider Active Start: February 07, 2025 End: February 07, 2025 Dr. Von Velez MD Attending Provider Active Start: February 07, 2025 End: February 07, 2025 Team Status: Active Member Role/Relationship Status Dates Dr. Cachorro Whitney MD Primary Care Provider Active Start: February 07, 2025 Dr. Cachorro Whitney MD Referring Provider Active Start: February 07, 2025 Dr. Von Velez MD Attending Provider Active Start: February 07, 2025 Dr. Von Velez MD Other Provider Active Start: February 07, 2025 Team Status: Inactive Member Role/Relationship Status Dates Dr. Cachorro Whitney MD Primary Care Provider Active Start: February 23, 2025 End: February 23, 2025 Dr. Cachorro Whitney MD Attending Provider Active Start: February 23, 2025 End: February 23, 2025 Dr. Cachorro Whitney MD Referring Provider Active Start: February 23, 2025 End: February 23, 2025 INFORMATION SOURCE (unrecogn ized section and content) DATE CREATED AUTHOR 03/03/2025 [facility] FOR RECORDS PERTAINING TO PATIENTS WHO [...] BE BASED ON THE PRIMARY CLINICAL RECORDS. [employer] provides no warranty or guarantee of the accuracy or completeness of information in this document.
--- NOTE | 2025-03-04 11:49 | ECHOD_ITS ---
Reason For Study Reason For Study: MURMUR Procedure This was a 2D Doppler, Color Flow transthoracic echocardiogram. Exam performed in department. Left Ventricle Normal LV size. Left ventricular systolic function is normal. The left ventricular ejection fraction is 65 %. Stage 2 diastolic dysfunction. No regional wall motion abnormalities noted. Right Ventricle Normal RV size. Normal systolic function. Atria The left atrium is severely enlarged. Normal right atrium. Mitral Valve There is mild to moderate mitral annular calcification. Moderate (2+) eccentric mitral valve insufficiency. Tricuspid Valve Normal tricuspid valve. Mild (1+) tricuspid valve insufficiency. Pulmonary artery systolic pressure is 44 mmHg. Aortic Valve Trisinus/trileaflet aortic valve. Moderate focal aortic valve calcification. Peak aortic valve gradient 29 mmHg. Mean aortic valve gradient 16 mmHg. Pulmonic Valve Normal pulmonic valve. Great Vessels Normal aortic root. Pericardium/Pleural No pericardial effusion. MMode/2D Measurements & Calculations LVIDd: 5.6 cm IVSd: 1.1 cm LVOT diam: 2.0 cm LVIDs: 3.6 cm LVPWd: 1.1 cm LVOT area: 3.1 cm2 RVDd: 3.0 cm FS: 35.5 % Ao root diam: 3.5 cm LAV(MOD-bp): 134.8 ml LVAd ap4: 21.6 cm2 LAV(MOD-bp) Indexed: 75.2 ml/m2 LVLd ap4: 6.7 cm LAV(MOD-sp2): 114.0 ml EDV(MOD-sp4): 57.2 ml LAV(MOD-sp4): 139.6 ml EDV(sp4-el): 59.4 ml LVAs ap4: 10.6 cm2 LVLs ap4: 5.3 cm ESV(MOD-sp4): 19.6 ml ESV(sp4-el): 18.0 ml EF(MOD-sp4): 65.7 % EF(sp4-el): 69.7 % SV(MOD-sp4): 37.6 ml SV(sp4-el): 41.4 ml LA A4 area: 35.0 cm2 SI(MOD-sp4): 21.0 ml/m2 LA dimension(2D): 5.4 cm RA A4 area: 11.5 cm2 Time Measurements MV dec time: 0.17 sec Doppler Measurements & Calculations MV E max gerald: 131.0 cm/sec Lat Peak E' Gerald: 10.0 cm/sec Med Peak E' Gerald: 7.1 cm/sec MV A max gerald: 92.7 cm/sec E/E' lat: 13.1 E/E' med: 18.5 MV E/A: 1.4 MV V2 max: 148.4 cm/sec MV P1/2t max gerald: 159.6 cm/sec Ao V2 max: 270.7 cm/sec MV max P.8 mmHg MV P1/2t: 68.1 msec Ao max P.3 mmHg MV V2 mean: 88.2 cm/sec Ao V2 mean: 194.2 cm/sec MV mean P.5 mmHg MV dec slope: 686.1 cm/sec2 Ao mean P.4 mmHg MV V2 VTI: 37.4 cm MVA(P1/2t): 3.2 cm2 Ao V2 VTI: 62.1 cm AV (velocity ratio): 0.39 MVA(VTI): 2.0 cm2 TAMIE(I,D): 1.2 cm2 TAIME(V,D): 1.2 cm2 LV V1 max: 107.1 cm/sec SV(LVOT): 73.6 ml PA V2 max: 95.8 cm/sec LV V1 max P.6 mmHg PA V2 mean: 64.3 cm/sec LV V1 mean P.4 mmHg PA V2 VTI: 18.8 cm LV V1 mean: 73.2 cm/sec LV V1 VTI: 24.1 cm PI dec slope: 199.9 cm/sec2 TR max gerald: 322.9 cm/sec TR max P.7 mmHg ECHO/Echo Complete Interpretation Summary Normal LV size. Left ventricular systolic function is normal. The left ventricular ejection fraction is 65 %. Stage 2 diastolic dysfunction. Moderate focal aortic valve calcification. Mean aortic valve gradient 16 mmHg. Moderate (2+) eccentric mitral valve insufficiency. The left atrium is severely enlarged. Ordering Physician: Cachorro Whitney Referring Physician: Cachorro Whitney Performed By: Marian Bermudez, RENUKA, RVT
== END | disposition home or self-care (01) ==
LOC: CVS 11:26
PROVIDERS: PCP Family Medicine; Referring Provider Family Medicine; Visit Provider Family Medicine
DX: R01.1 Cardiac murmur, unspecified (principal)
CPT/HCPCS: 93306

== ENCOUNTER → 2025-04-04 | Outpatient (CLI) | payer MEDICARE, SELFPAY ==
--- NOTE | 2025-04-04 09:09 | BI_ITS ---
EXAM: DIAG MAMM W/CAD, BILAT; BREAST LIMITED UNILATERAL; BILAT BRST BRITTNEY STAND ALONE 04/04/2025 CLINICAL HISTORY: F, Age 80 y/o , AXILLARY MASS; LT AXILLA ABN MAMMO, PALP LUMP; LUMP TECHNIQUE: DIAG MAMM W/CAD, BILAT; BREAST LIMITED UNILATERAL; BILAT BRST BRITTNEY STAND ALONE. COMPARISON: Prior exam(s) dated 03/18/2024 07/30/2022, 05/01/2020. FINDINGS: MAMMOGRAM: TISSUE DENSITY: There are scattered areas of fibroglandular density. Left breast: The patient presents with palpable concern in the upper-outer left breast. There is a triangle skin marker indicating the area of palpable concern in the upper-outer left breast, underlying the skin marker is a an enlarged intramammary lymph node. Right breast: There are no suspicious masses, grouped calcifications or architectural distortions in the right breast. ULTRASOUND: Ultrasound performed of the area of patient's palpable concern in the left breast at 2 o'clock 9 cm from the nipple there is an abnormally enlarged intramammary lymph node with near complete hilar effacement and diffuse cortical thickening, measuring 1.4 x 1.3 x 0.9 cm and cortical thickness of 0.3 cm. There are 2 architecturally normal-appearing left axillary lymph nodes. BI/DIAG MAMM W/CAD, BILAT IMPRESSION: Abnormal intramammary lymph node in the left breast at 2 o'clock 9 cm from the nipple. Recommend tissue sampling with ultrasound-guided core needle biopsy. OVERALL FINAL ASSESSMENT BI-RADS 4: SUSPICIOUS RECOMMENDATION: Biopsy Recommended A letter with findings and recommendations will be mailed to the patient. Reading Location: [id number]
--- NOTE | 2025-04-04 09:57 | BI_ITS ---
EXAM: DIAG MAMM W/CAD, BILAT; BREAST LIMITED UNILATERAL; BILAT BRST BRITTNEY STAND ALONE 04/04/2025 CLINICAL HISTORY: F, Age 80 y/o , AXILLARY MASS; LT AXILLA ABN MAMMO, PALP LUMP; LUMP TECHNIQUE: DIAG MAMM W/CAD, BILAT; BREAST LIMITED UNILATERAL; BILAT BRST BRITTNEY STAND ALONE. COMPARISON: Prior exam(s) dated 03/18/2024 07/30/2022, 05/01/2020. FINDINGS: MAMMOGRAM: TISSUE DENSITY: There are scattered areas of fibroglandular density. Left breast: The patient presents with palpable concern in the upper-outer left breast. There is a triangle skin marker indicating the area of palpable concern in the upper-outer left breast, underlying the skin marker is a an enlarged intramammary lymph node. Right breast: There are no suspicious masses, grouped calcifications or architectural distortions in the right breast. ULTRASOUND: Ultrasound performed of the area of patient's palpable concern in the left breast at 2 o'clock 9 cm from the nipple there is an abnormally enlarged intramammary lymph node with near complete hilar effacement and diffuse cortical thickening, measuring 1.4 x 1.3 x 0.9 cm and cortical thickness of 0.3 cm. There are 2 architecturally normal-appearing left axillary lymph nodes. BI/Bilat Brst Brittney Stand Alone IMPRESSION: Abnormal intramammary lymph node in the left breast at 2 o'clock 9 cm from the nipple. Recommend tissue sampling with ultrasound-guided core needle biopsy. OVERALL FINAL ASSESSMENT BI-RADS 4: SUSPICIOUS RECOMMENDATION: Biopsy Recommended A letter with findings and recommendations will be mailed to the patient. Reading Location: [id number]
--- NOTE | 2025-04-04 10:16 | US_ITS ---
EXAM: DIAG MAMM W/CAD, BILAT; BREAST LIMITED UNILATERAL; BILAT BRST BRITTNEY STAND ALONE 04/04/2025 CLINICAL HISTORY: F, Age 80 y/o , AXILLARY MASS; LT AXILLA ABN MAMMO, PALP LUMP; LUMP TECHNIQUE: DIAG MAMM W/CAD, BILAT; BREAST LIMITED UNILATERAL; BILAT BRST BRITTNEY STAND ALONE. COMPARISON: Prior exam(s) dated 03/18/2024 07/30/2022, 05/01/2020. FINDINGS: MAMMOGRAM: TISSUE DENSITY: There are scattered areas of fibroglandular density. Left breast: The patient presents with palpable concern in the upper-outer left breast. There is a triangle skin marker indicating the area of palpable concern in the upper-outer left breast, underlying the skin marker is a an enlarged intramammary lymph node. Right breast: There are no suspicious masses, grouped calcifications or architectural distortions in the right breast. ULTRASOUND: Ultrasound performed of the area of patient's palpable concern in the left breast at 2 o'clock 9 cm from the nipple there is an abnormally enlarged intramammary lymph node with near complete hilar effacement and diffuse cortical thickening, measuring 1.4 x 1.3 x 0.9 cm and cortical thickness of 0.3 cm. There are 2 architecturally normal-appearing left axillary lymph nodes. US/Breast Limited Unilateral IMPRESSION: Abnormal intramammary lymph node in the left breast at 2 o'clock 9 cm from the nipple. Recommend tissue sampling with ultrasound-guided core needle biopsy. OVERALL FINAL ASSESSMENT BI-RADS 4: SUSPICIOUS RECOMMENDATION: Biopsy Recommended A letter with findings and recommendations will be mailed to the patient. Reading Location: [id number]
== END | disposition home or self-care (01) ==
PROVIDERS: PCP Family Medicine; Referring Provider Family Medicine; Visit Provider Family Medicine
DX: R22.30 Localized swelling, mass and lump, unspecified upper limb (principal); R92.8 Other abnormal and inconclusive findings on diagnostic imaging of breast
CPT/HCPCS: 76642; 77062; 77066; G0279

== ENCOUNTER 2025-04-10 08:24 | Outpatient (CLI) | payer MEDICARE, SELFPAY ==
--- NOTE | 2025-04-10 08:05 | BRBX_PTH ---
PATIENT: KARIE PLASCENCIA LOC: [place] U#:[id number] AGE/SX: 80/F ROOM: RE04/10/[address]: Dr. Von Velez MD : 1945 BED: DIS: 04/10/2025 SPEC #: [id number] RECD: 04/10/25 08:21 STATUS: OSMAN REModesta #: [id number] RODRÍGUEZ: 04/10/25 08:[address]: Von Velez DEPT: SURGICAL PATHOLOGY RECD BY: Ford Reyes ENTERED: 04/10/25 10:54 SP TYPE: BREAST BX OTHR DR: Dr. Cachorro Whitney MD Tissues: A - Left breast, NOS Procedures: Immunohistochemical Stains Surgery Specimen Level V IHC Stain ADDITIONAL HEADER OPERATION: Left breast biopsy PRE-OP DIAGNOSIS: Left breast mass / lymph node TISSUE SUBMITTED: A- Left breast lymph node / left axilla MICROSCOPIC DIAGNOSIS A. Left breast, mass/lymph node, breast, core biopsy: - Lymphoid tissue negative for carcinoma - see note and Comment. - Mature adipose tissue. - No breast epithelium observed. Note: This case will be sent to [facility] for formal consultation with the hematopathology division of the Pathology Department, to rule out a lymphoproliferative disorder. A separate report from [facility] will follow. IHCs were obtained and will be reported by the job service consultant pathologist. COMMENT: A portion of the tissue was sent in RPMI for flow cytometry to [facility]. The flow cytometry showed no immunophenotypic evidence of an abnormal population of B lymphocytes or T lymphocytes. Few B-cells detected. Diagnosis provided by Dr Ashlyn Baeza ([facility] hematopathology division) (see report scanned into the EMR). MICROSCOPIC DESCRIPTION Slides are reviewed. All matched controls reacted appropriately. These tests were developed and their performance characteristics determined by [facility]. They may not have been cleared or approved by the U.S. Food and Drug Administration. The FDA has determined that such clearance or approval is not necessary.? The above immunohistochemical?markers and/or special stains have been reviewed by the Pathologist. GROSS DESCRIPTION A. Received in saline labeled with the patient's name and date of . Designated as L breast axillary lymph node are 4 hong to yellow tissue cores, 0.4 cm to 1.1 cm in length by 0.1 cm in diameter. Touch preparation is made. 1 core is placed in RPMI for potential future ancillary studies. The remainder of the specimen is entirely submitted in 2 cassettes as follows: A1: 2 yellow fatty tissue coresA2: 1 hong tissue core MS 04/10/2025 CPT:33821,21703, [id number] ADDENDUM ADDENDUM ADDENDUM ADDENDUM ADDENDUM ADDENDUM ADDENDUM ADDENDUM ADDENDUM ADDENDUM ADDENDUM ADDENDUM ADDENDUM ADDENDUM ADDENDUM ADDENDUM ADDENDUM ADDENDUM ADDENDUM ADDENDUM ADDENDUM ADDENDUM ADDENDUM 05/03/2025 09:28 ADDENDUM 05/03/2025 09:28 ADDENDUM 05/03/2025 09:28 ADDENDUM 05/03/2025 09:28 ADDENDUM 05/03/2025 09:28 This addendum is added to incorporate an outside pathology consultation report. The case was examined at [facility] by Dr. Monte (#[id number]) and the following diagnosis was rendered. A. 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 Diagnosis Comment: As described in detail in the synoptic report below, the assessment is somewhat challenging due to the very scant nature of the specimen. However, overall, there is convincing evidence of a neoplastic large B-cell infiltrate expressing germinal center associated markers (BCL6, CD10) and showing a diffuse infiltrative pattern not associated with follicular dendritic cell meshworks. The findings are consistent with an aggressive B-cell lymphoma. FISH studies have been ordered, and the results will be reported in an addendum. Addendum: No rearrangements of BCL2, BCL6 or MYC genes are detected by FISH. 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 Please see complete above mentioned consultation report in EMR
--- OUTSIDE RECORDS SUMMARY | 2025-04-10 17:48 | XMS RPT_ITS | CCD ---
Author Organization [facility] Care Team Providers Care Biotechnician Name Role Phone Unavailable Primary Care Provider Unavailtabby Whitney MD, Dr. Ivory Primary Care Provider Yumiko INSTRUCTOR WARPER-C, Candie Attending Provider Devonte PALACIOS, Dr. Ivory Attending Provider [phone] Devonte PALACIOS, Dr. Ivory Referring Provider [phone] Devonte PALACIOS, Dr. Ivory Primary Care Provider Agustin PALACIOS, Dr. Longoria Attending Provider Agustin PALACIOS, Dr. Longoria Other Provider Rafia PALACIOS, Dr. Velez Attending Provider [phone] Agustin PALACIOS, Dr. Longoria Referring Provider [phone] Cachorro Whitney Referring Unavailable Whitney, Cachorro Primary Care Unavailable Whitney, Cachorro Attending Unavailable Whitney, Cachorro Primary Care Unavailable Calabretta, Von Attending Unavailable Whitney, Cachorro Referring Unavailable Whitney, Cachorro Primary Care Unavailable Whitney, Cachorro Attending Unavailable Whitney, Cachorro Referring Unavailable Whitney, Cachorro Primary Care Unavailable CalabrettaVon Attending Unavailable Calabretta, Von Referring Unavailable Whitney, Cachorro Primary Care Unavailable Whitney, Cachorro Attending Unavailable Whitney, Cachorro Referring Unavailable Whitney, Cachorro Referring Unavailable Whitney, Cachorro Primary Care Unavailable Calabretta, Von Attending Unavailable Whitney, Cachorro Referring Unavailable Whitney, Cachorro Primary Care Unavailable Calabretta, Von Attending Unavailable Whitney, Cachorro Primary Care Unavailable RafiaAgustin Attending Unavailable Whitney, Cachorro Primary Care Unavailable Calabretta, Von Consulting Unavailable Calabretta, Von Attending Unavailable Whitney, Cachorro Referring Unavailable Whitney, Cachorro Primary Care Unavailable Whitney, Cachorro Attending Unavailable Whitney, Cachorro Referring Unavailable Whitney, Cachorro Primary Care Unavailable Whitney, Cachorro Referring Unavailable Cachorro Whitney Attending Unavailable Cachorro Whitney Primary Care Unavailable Cachorro Whitney Attending Unavailable Cachorro Whitney Primary Care Unavailable Candie Calderon NP Attending Unavailable Medications Current Medications Medication Drug Class(es) Dates Sig (Normalized) Sig (Original) aspirin 81 mg delayed release oral tablet (20 sources) Platelet Aggregation Inhibitor, Nonsteroidal Anti-inflammatory Drug Start: 10-24-2019 take 1 tablet by mouth once daily Aspirin 81 MG tablet,delayed release (DR/EC) Active 81 mg PO DAILY October 24, 2019 1:00am heart health Start: 10-13-2017 End: 10-16-2017 Aspirin 81 mg tablet,delayed release (DR/EC) Discontinued PO 0 October 13, 2017 1:00am October 16, 2017 4:05pm Start: 10-13-2017 End: 10-16-2017 Aspirin Discontinued PO Febr 2017 1:00am October 16, 2017 4:05pm calcium carbonate 1250 mg oral tablet (12 sources) Start: 10-13-2017 take 1 tablet by mouth once daily Calcium Carbonate (Calcium 500) 500 mg calcium (1,250 mg) tablet Active 500 mg PO DAILY October 13, 2017 1:00am ferrous sulfate 325 mg oral tablet (6 sources) Start: 01-09-2025 take 1 tablet by mouth three times daily Ferrous Sulfate (Feosol) 325 mg (65 mg iron) tablet Active 325 mg PO THREE TIMES A DAY January 09, 2025 12:00am folic acid 0.8 mg oral capsule (12 sources) Start: 10-13-2017 Folic Acid 0.8 mg capsule Active 800 ug PO daily October 13, 2017 1:00am Start: 10-13-2017 take 800 ug by mouth once jose y Folic Acid Active 800 MCG PO daily October 13, 2017 1:00am glimepiride 1 mg oral tablet (12 sources) Sulfonylurea Start: 10-13-2017 take 0.5 mg [...] 1:00am levothyroxine sodium 0.075 mg oral capsule (12 sources) l-Thyroxine Start: 10-13-2017 take 1 capsule by mouth once daily Levothyroxine 75 mcg capsule Active 75 ug PO DAILY 0 October 13, 2017 1:00am magnesium oxide 400 mg oral tablet (12 sources) Start: 10-16-2017 take 1 tablet by mouth once daily Magnesium Oxide 400 mg tablet Active 400 mg PO DAILY October 16, 2017 1:00am metFORMIN hydrochloride 1000 mg oral tablet (12 sources) Biguanide Start: 10-13-2017 take 1 tablet [...] MORNING October 13, 2017 12:00am Multivitamin tablet (7 sources) Start: 10-13-2017 Multivitamin t ablet Active 1 {tbl} PO EVERY MORNING October 13, 2017 1:00am Completed/Discontinued Medications Medication Drug Class(es) Dates Sig (Normalized) Sig (Original) acetaminophen 300 mg / codeine phosphate 30 mg oral tablet (12 sources) Opioid Agonist Start: 02-16-2019 End: 02-19-2019 [...] products rosuvastatin calcium 5 mg oral tablet (12 sources) HMG-CoA Reductase Inhibitor Start: 01-20-2019 End: [...] [Right foot drop] Deficiency and other anemia (18 sources) Anemia; Translations: [Anemia, unspecified] 11-10-2017 Episodic Deficiency and other anemia (2 sources) Anemia, unspecified; Translations: [Anemia, unspecified] Onset: 01-02-2025 Episodic Deficiency and other anemia (1 source) Iron deficiency anemia, unspecified; Translations: [Iron deficiency anemia, unspecified] Onset: 02-15-2025 Episodic Diabetes mellitus without complication (13 sources) Diabetes mellitus; Translations: [Type 2 diabetes mellitus without complications] Onset: 07-26-2024 11-10-2017 Chronic Disorders of lipid metabolism (12 sources) Hyperlipidemia; Translations: [Hyperlipidemia, unspecified] 11-10-2017 Chronic Genitourinary symptoms and ill-defined conditions (12 sources) Dysuria; Translations: [Dysuria] 11-10-2017 Episodic Heart valve disorders (1 source) Cardiac murmur, unspecified; Translations: [Cardiac murmur, unspecified] Onset: 03-09-2025 Episodic Malaise and fatigue (12 sources) Fatigue; Translations: [Other fatigue] 11-10-2017 Episodic Nonmalignant breast conditions (5 sources) Breast lump; Translations: [Unspecified lump in the left breast, unspecified quadrant] Onset: 04-10-2025 04-10-2025 Episodic Other gastrointestinal disorders (18 sources) History of bypass of stomach; 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] 11-10-2017 Episodic Other nervous system disorders (12 sources) Carpal tunnel syndrome; Translations: [Carpal tunnel syndrome, unspecified upper limb] 05-06-2018 Chronic Other skin disorders (1 source) Localized swelling, mass and lump, unspecified upper limb; Translations: [Localized swelling, mass and lump, unspecified upper limb] Onset: 04-10-2025 Episodic Thyroid disorders (2 sources) Hypothyroidism, unspecified; Translations: [Hypothyroidism, unspecified] Onset: 02-22-2025 Chronic Thyroid disorders (12 sources) Disorder of thyroid gland; Translations: [Disorder of thyroid, unspecified] 11-10-2017 Episodic Comment on above: ON MED Past or Other Problems Problem Classification Problem Date Documented Da te Episodic/Chronic Other gastrointestinal disorders (1 source) Bariatric surgery status; 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] Onset: 01-09-2025 Episodic Urinary tract infections (1 source) Urinary tract infection, site not specified; Translations: [Urinary tract infection, site not specified] Onset: 09-29-2024 Episodic Results Test Name Value Interpretation Reference Range Facility Surgery Visit Reporton 04-10 Surgery Visit Report [facility] [address] [place] [address] OFFICE VISIT Date of Service: 04/10/25 MR#: [id number] Acct: [id number] Name: KARIE PLASCENCIA Rep #: [id number] : 1945 Provider: Dr. Von chun MD Age/Sex: 80/F Location: 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 Is patient in pain?: No Allergies No Known Allergies Allergy (Verified 04/10/25 07:56) Medications ???Medication ???Instructions ???Recorded ???Confirmed ???Type calcium carbonate (Calcium 500) 500 mg PO DAILY 10/13/17 04/10/25 History folic acid 0.8 mg capsule 800 mcg PO QDAY 10/13/17 04/10/25 History glimepiride 1 mg tablet 0.5 mg PO DAILY 10/13/17 04/10/25 History levothyroxine 75 mcg capsule 75 mcg PO DAILY 10/13/17 04/10/25 History metformin 1,000 mg tablet 1,000 mg PO BID 10/13/17 04/10/25 History multivitamin 1 tab PO QAM 10/13/17 04/10/25 His tory magnesium oxide 400 mg (241.3 mg 400 mg PO DAILY 10/16/17 04/10/25 History magnesium) tablet aspirin 81 mg tablet,delayed 81 mg PO DAILY heart health 04/10/25 History release ferrous sulfate 325 mg (65 mg 325 mg PO TID 01/09/25 04/10/25 Hi story iron) tablet (Feosol) Have you fallen in the past year?: No PFSH Medical History Wears partial dentures Wears glasses Post-menopausal Non-smoker History of echocardiogram History of stress test History of irregular heartbeat Foot drop, right Anemia Carpal tunnel syndrome Thyroid disease Fatigue Dysuria Hyperlipemia Diabetes Surgical History History of cardiac catheterization Hx of colonoscopy History of esophagogastroduodenoscopy (EGD) History of carpal tunnel release of both wrists H/O gastric bypass Family History Mother Uterine cancer Sister Heart disease Thyroid disorder Social History Smoking Status: Never smoker second hand exposure: No alcohol intake: never substance use type: does not use caffeine: No what type of physical activity do you participate in: walking frequency: 3-4 times per week seatbelt use: always HPI HPI HPI: Patient is an 80-year-old female here with a left breast mass. She noted this about a month ago. She says over the last few days has been drinking. It is not painful. 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 She always gets pricks and pokes on her arms. ROS General General: Yes weight change and [...] and No other Exam Const General: cooperative Orientatio (more content not included)... [facility] Bilat Brst Rey Stand Aloneo n 04-04-2025 Bilat Brst Rey Stand Alone [facility] [address] [place] [address] Bilat Brst Rey Stand Alone MR#: [id number] Acct: [id number] Name: KARIE PLASCENCIA Rep #: [id number] : 1945 F 80 From: Pinky William MD PCP: Dr. Cachorro Whitney MD Status: [facility] Study: Bilat Brst Rey Stand Alone Date of Exam: 03/24 10/18 Exam# [id number] Ordering Dr: Cachorro Whitney MD EXAM: DIAG MAMM W/CAD, BILAT; BREAST LIMITED UNILATERAL; BILAT BRST REY STAND ALONE 04/04/2025 CLINICAL HISTORY: F, Age 80 y/o , AXILLARY MASS; LT AXILLA ABN MAMMO, PALP LUMP; LUMP TECHNIQUE: DIAG MAMM W/CAD, BILAT; BREAST LIMITED UNILATERAL; BILAT BRST REY STAND ALONE. COMPARISON: Prior exam(s) dated 03/18/2024 07/30/2022, 05/01/2020. FINDINGS: MAMMOGRAM: TISSUE DENSITY: There are scattered areas of fibroglandular density. Left breast: The patient presents with palpable concern in the upper-outer left breast. There is a triangle skin marker indicating the area of palpable concern in the upper-outer left breast, underlying the skin marker is a an enlarged intramammary lymph node. Right breast: There are no suspicious masses, grouped calcifications or architectural distortions in the right breast. ULTRASOUND: Ultrasound performed of the area of patient's palpable concern in the left breast at 2 o'clock 9 cm from the nipple there is an abnormally enlarged intramammary lymph node with near complete hilar effacement and diffuse cortical thickening, measuring 1.4 x 1.3 x 0.9 cm and cortical thickness of 0.3 cm. There are 2 architecturally normal-appearing left axillary lymph nodes. BI/Bilat Brst Rey Stand Alone IMPRESSION: Abnormal intramammary lymph node in the left breast at 2 o'clock 9 cm from the nipple. Recommend tissue sampling with ultrasound-guided core needle biopsy. OVERALL FINAL ASSESSMENT BI-RADS 4: SUSPICIOUS RECOMMENDATION: Biopsy Recommended A letter with findings and recommendations will be mailed to the patient. Reading Location: [facility] CC: Dr. Cachorro Whitney MD Finishing Machine Operator: Signed [facility] Breast Limited Unilateralon 04-04-2025 Breast Limited Unilateral [facility] [address] [place] [address] [id number] Breast Limited Unilateral MR#: [id number] Acct: [id number] Name: KARIE PLASCENCIA Rep #: [id number] : 1945 F 80 From: Pinky William MD PCP: Dr. Cachorro Whitney MD Status: [facility] CLI Study: Breast Limited Unilateral Date of Exam: Exam# [id number] Ordering Dr: Cachorro Whitney MD EXAM: DIAG MAMM W/CAD, BILAT; BREAST LIMITED UNILATERAL; BILAT BRST REY STAND ALONE 04/04/2025 CLINICAL HISTORY: F, Age 80 y/o , AXILLARY MASS; LT AXILLA ABN MAMMO, PALP LUMP; LUMP TECHNIQUE: DIAG MAMM W/CAD, BILAT; BREAST LIMITED UNILATERAL; BILAT BRST REY STAND ALONE. COMPARISON: Prior exam(s) dated 03/18/2024 07/30/2022, 05/01/2020. FINDINGS: MAMMOGRAM: TISSUE DENSITY: There are scattered areas of fibroglandular density. Left breast: The patient presents with palpable concern in the upper-outer left breast. There is a triangle skin marker indicating the area of palpable concern in the upper-outer left breast, underlying the skin marker is a an enlarged intramammary lymph node. Right breast: There are no suspicious masses, grouped calcifications or architectural distortions in the right breast. ULTRASOUND: Ultrasound performed of the area of patient's palpable concern in the left breast at 2 o'clock 9 cm from the nipple there is an abnormally enlarged intramammary lymph node with near complete hilar effacement and diffuse cortical thickening, measuring 1.4 x 1.3 x 0.9 cm and cortical thickness of 0.3 cm. There are 2 architecturally normal-appearing left axillary lymph nodes. US/Breast Limited Unilateral IMPRESSION: Abnormal intramammary lymph node in the left breast at 2 o'clock 9 cm from the nipple. Recommend tissue sampling with ultrasound-guided core needle biopsy. OVERALL FINAL ASSESSMENT BI-RADS 4: SUSPICIOUS RECOMMENDATION: Biopsy Recommended A letter with findings and recommendations will be mailed to the patient. Reading Location: [facility] CC: Dr. Cachorro Whitney MD Finishing Machine Operator: Signed [facility] Breast imaging reportOrdered By: Pinky William on 04-04-2025 Study report [facility] [address] [place] [address] DIAG MAMM W/CAD, BILAT MR#: [id number] Acct: [id number] Name: KARIE PLASCENCIA Rep #: [id number] : 1945 F 80 From: Annie William MD PCP: Dr. Cachorro Whitney MD Status: [facility] Study:DIAG MAMM W/CAD, BILAT Date of Exam: 04/04/25 Exam# [id number] Ordering Dr: Cachorro Whitney MD EXAM: DIAG MAMM W/CAD, BILAT; BREAST LIMITED UNILATERAL; BILAT BRST REY STAND ALONE 04/04/2025 CLINICAL HISTORY: F, Age 80 y/o , AXILLARY MASS; LT AXILLA ABN MAMMO, PALP LUMP; LUMP TECHNIQUE: DIAG MAMM W/CAD, BILAT; BREAST LIMITED UNILATERAL; BILAT BRST REY STAND ALONE. COMPARISON: Prior exam(s) dated 03/18/2024 07/30/2022, 05/01/2020. FINDINGS: MAMMOGRAM: TISSUE DENSITY: There are scattered areas of fibroglandular density. Left breast: The patient presents with palpable concern in the upper-outer left breast. There is a triangle skin marker indicating the area of palpable concern in the upper-outer left breast, underlying the skin marker is a an enlarged intramammary lymph node. Right breast: There are no suspicious masses, grouped calcifications or architectural distortions in the right breast. ULTRASOUND: Ultrasound performed of the area of patient's palpable concern in the left breast at 2 o'clock 9 cm from the nipple there is an abnormally enlarged intramammary lymph node with near complete hilar effacement and diffuse cortical thickening, measuring 1.4 x 1.3 x 0.9 cm and cortical thickness of 0.3 cm. There are 2 architecturally normal-appearing left axillary lymph nodes. BI/DIAG MAMM W/CAD, BILAT IMPRESSION: Abnormal intramammary lymph node in the left breast at 2 o'clock 9 cm from the nipple. Recommend tissue sampling with ultrasound-guided core needle biopsy. OVERALL FINAL ASSESSMENT BI-RADS 4: SUSPICIOUS RECOMMENDATION: Biopsy Recommended A letter with findings and recommendations will be mailed to the patient. Reading Location: [facility] CC: Dr. Cachorro Whitney MD ~ Finishing Machine Operator: Signed [facility] Study report [facility] [address] [place], [place] [address] Bilat Brst Rey Stand Alone MR#: [id number] Acct: [id number] Name: KARIE PLASCENCIA Rep #: [id number] : 1945 F 80 From: Annie William MD PCP: Dr. Cachorro Whitney MD Status: [facility] Study:Bilat Brst Rey Stand Alone Date of Exa m: 04/04/25 Exam# [id number] Ordering Dr: Cachorro Whitney MD EXAM: DIAG MAMM W/CAD, BILAT; BREAST LIMITED UNILATERAL; BILAT BRST REY STAND ALONE 04/04/2025 CLINICAL HISTORY: F, Age 80 y/o , AXILLARY MASS; LT AXILLA ABN MAMMO, PALP LUMP; LUMP TECHNIQUE: DIAG MAMM W/CAD, BILAT; BREAST LIMITED UNILATERAL; BILAT BRST REY STAND ALONE. COMPARISON: Prior exam(s) dated 03/18/2024 07/30/2022, 05/01/2020. FINDINGS: MAMMOGRAM: TISSUE DENSITY: There are scattered areas of fibroglandular density. Left breast: The patient presents with palpable concern in the upper-outer left breast. There is a triangle skin marker indicating the area of palpable concern in the upper-outer left breast, underlying the skin marker is a an enlarged intramammary lymph node. Right breast: There are no suspicious masses, grouped calcifications or architectural distortions in the right breast. ULTRASOUND: Ultrasound performed of the area of patient's palpable concern in the left breast at 2 o'clock 9 cm from the nipple there is an abnormally enlarged intramammary lymph node with near complete hilar effacement and diffuse cortical thickening, measuring 1.4 x 1.3 x 0.9 cm and cortical thickness of 0.3 cm. There are 2 architecturally normal-appearing left axillary lymph nodes. BI/Bilat Brst Rey Stand Alone IMPRESSION: Abnormal intramammary lymph node in the left breast at 2 o'clock 9 cm from the nipple. Recommend tissue sampling with ultrasound-guided core needle biopsy. OVERALL FINAL ASSESSMENT BI-RADS 4: SUSPICIOUS RECOMMENDATION: Biopsy Recommended A letter with findings and recommendations will be mailed to the patient. Reading Location: [id number] CC: Dr. Cachorro Whitney MD ~ Finishing Machine Operator: Signed [facility] DIAG MAMM W/CAD, BILATon DIAG MAMM W/CAD, BILAT [facility] [address] [place] [id number] DIAG MAMM W/CAD, BILAT MR#: [id number] Acct: [id number] Name: KARIE PLASCENCIA Rep #: [id number] : 1945 F 80 From: Pinky William MD PCP: Dr. Cachorro Whitney MD Status: [facility] CLI Study: DIAG MAMM W/CAD, BILAT Date of Exam: 04/04/25 Exam# [id number] Ordering Dr: Cachorro Whitney MD EXAM: DIAG MAMM W/CAD, BILAT; BREAST LIMITED UNILATERAL; BILAT BRST REY STAND ALONE 04/04/2025 CLINICAL HISTORY: F, Age 80 y/o , AXILLARY MASS; LT AXILLA ABN MAMMO, PALP LUMP; LUMP TECHNIQUE: DIAG MAMM W/CAD, BILAT; BREAST LIMITED UNILATERAL; BILAT BRST REY STAND ALONE. COMPARISON: Prior exam(s) dated 03/18/2024 07/30/2022, 05/01/2020. FINDINGS: MAMMOGRAM: TISSUE DENSITY: There are scattered areas of fibroglandular density. Left breast: The patient presents with palpable concern in the upper-outer left breast. There is a triangle skin marker indicating the area of palpable concern in the upper-outer left breast, underlying the skin marker is a an enlarged intramammary lymph node. Right breast: There are no suspicious masses, grouped calcifications or architectural distortions in the right breast. ULTRASOUND: Ultrasound performed of the area of patient's palpable concern in the left breast at 2 o'clock 9 cm from the nipple there is an abnormally enlarged intramammary lymph node with near complete hilar effacement and diffuse cortical thickening, measuring 1.4 x 1.3 x 0.9 cm and cortical thickness of 0.3 cm. There are 2 architecturally normal-appearing left axillary lymph nodes. BI/DIAG MAMM W/CAD, BILAT IMPRESSION: Abnormal intramammary lymph node in the left breast at 2 o'clock 9 cm from the nipple. Recommend tissue sampling with ultrasound-guided core needle biopsy. OVERALL FINAL ASSESSMENT BI-RADS 4: SUSPICIOUS RECOMMENDATION: Biopsy Recommended A letter with findings and recommendations will be mailed to the patient. Reading Location: [facility] CC: Dr. Cachorro Whitney MD Finishing Machine Operator: Signed [facility] Echocardiogram study reportO rdered By: Agustin Morataya on 03-05-2025 Study report [facility] [place] [address] Echo Complete 03/03/25 2351 MR#: [id number] Acct: [id number] Name: KARIE PLASCENCIA Rep #:[id number] : 1945 79 From: Agustin Stewart Attending Dr: Dr. Cachorro Whitney MD Status: REG CLI Ordering Dr: Cachorro Whitney MD Date: Location: [facility] Sex: F C Admitted: Reason For Study Reason For Study: MURMUR Procedure This was a 2D Doppler, Color Flow transthoracic echocardiogram. Exam performed in department. Left Ventricle Normal LV size. Left ventricular systolic function is normal. The left ventricular ejection fraction is 65 %. Stage 2 diastolic dysfunction. No regional wall motion abnormalities noted. Right Ventricle Normal RV size. Normal systolic function. Atria The left atrium is severely enlarged. Normal right atrium. Mitral Valve There is mild to moderate mitral annular calcification. Moderate (2+) eccentric mitral valve insufficiency. Tricuspid Valve Normal tricuspid valve. Mild (1+) tricuspid valve insufficiency. Pulmonary artery systolic pressure is 44 mmHg. Aortic Valve Trisinus/trileaflet aortic valve. Moderate focal aortic valve calcification. Peak aortic valve gradient 29 mmHg. Mean aortic valve gradient 16 mmHg. Pulmonic Valve Normal pulmonic valve. Great Vessels Normal aortic root. Pericardium/Pleural No pericardial effusion. MMode/2D Measurements & Calculations LVIDd: 5.6 cm IVSd: 1.1 cm LVOT diam: 2.0 cm LVIDs: 3.6 cm LVPWd: 1.1 cm LVOT area: 3.1 cm2 RVDd: 3.0 cm FS: 35.5 % Ao root diam: 3.5 cm LAV(MOD-bp): 134.8 ml LVAd ap4: 21.6 cm2 LAV(MOD-bp) Indexed: 75.2 ml/m2 LVLd ap4: 6.7 cm LAV(MOD-sp2): 114.0 ml EDV(MOD-sp4): 57.2 ml LAV(MOD-sp4): 139.6 ml EDV(sp4-el): 59.4 ml LVAs ap4: 10.6 cm2 LVLs ap4: 5.3 cm ESV(MOD-sp4): 19.6 ml ESV(sp4-el): 18.0 ml EF(MOD-sp4): 65.7 % EF(sp4-el): 69.7 % SV(MOD-sp4): 37.6 ml SV(sp4-el): 41.4 ml LA A4 area: 35.0 cm2 SI(MOD-sp4): 21.0 ml/m2 LA dimension(2D): 5.4 cm RA A4 area: 11.5 cm2 Time Measurements MV dec time: 0.17 sec Doppler Measurements & Calculations MV E max gerald: 131.0 cm/sec Lat Peak E' Gerald: 10.0 cm/sec Med Peak E' Gerald: 7.1 cm/sec MV A max gerald: 92.7 cm/sec E/E' lat: 13.1 E/E' med: 18.5 MV E/A: 1.4 MV V2 max: 148.4 cm/sec MV P1/2t max gerald: 159.6 cm/sec Ao V2 max: 270.7 cm/sec MV max P.8 mmHg MV P1/2t: 68.1 msec Ao max P.3 mmHg MV V2 mean: 88.2 cm/sec Ao V2 mean: 194.2 cm/sec MV mean P.5 mmHg MV dec slope: 686.1 cm/sec2 Ao mean P.4 mmHg MV V2 VTI: 37.4 cm MVA(P1/2t): 3.2 cm2 Ao V2 VTI: 62.1 cm AV (velocity ratio): 0.39 MVA(VTI): 2.0 cm2 TAMIE(I,D): 1.2 cm2 TAMIE(V,D): 1.2 cm2 LV V1 max: 107.1 cm/sec SV(LVOT): 73.6 ml PA V2 max: 95.8 cm/sec LV V1 max P.6 mmHg PA V2 mean: 64.3 cm/sec LV V1 mean P.4 mmHg PA V2 VTI: 18.8 cm LV V1 mean: 73.2 cm/sec LV V1 VTI: 24.1 cm PI dec slope: 199.9 cm/sec2 TR max gerald: 322.9 cm/sec TR max P.7 mmHg ECHO/Echo Complete Interpretation Summary Normal LV size. Left ventricular systolic function is normal. The left ventricular ejection fraction is 65 %. Stage 2 diastolic dysfunction. Moderate focal aortic valve calcification. Mean aortic valve gradient 16 mmHg. Moderate (2+) eccentric mitral valve insufficiency. The left atrium is severely enlarged. Ordering Physician: Cachorro Whitney Referring Physician: Cachorro Whitney Performed By: Marian Bermudez, RENUKA, RVT 03/05/251656 Date _ Agustin Morataya MD CC: Dr. Cachorro Whitney MD ~ Date Dictated: 03/03/252350 Date Transcribed: 03/05/251656 Finishing Machine Operator: Signed [facility] Work Phone: Echo Completeon 03-04-2025 Echo Complete [facility] [address] [place] [place] [address] Echo Complete 03/03/252350 MR#: [id number] Acct: [id number] Name: KARIE PLASCENCIA Rep #: [id number] : 1945 79 From: Agustin Morataya MD Attending Dr: Dr. Cachorro Whitney MD Status: REG CLI Ordering Dr: Cachorro Whitney MD Date: 03/04/25 Location: [facility] Sex: F C Admitted: Reason For Study Reason For Study: MURMUR Procedure This was a 2D Doppler, Color Flow transthoracic echocardiogram. Exam performed in department. Left Ventricle Normal LV size. Left ventricular systolic function is normal. The left ventricular ejection fraction is 65 %. Stage 2 diastolic dysfunction. No regional wall motion abnormalities noted. Right Ventricle Normal RV size. Normal systolic function. Atria The left atrium is severely enlarged. Normal right atrium. Mitral Valve There is mild to moderate mitral annular calcification. Moderate (2+) eccentric mitral valve insufficiency. Tricuspid Valve Normal tricuspid valve. Mild (1+) tricuspid valve insufficiency. Pulmonary artery systolic pressure is 44 mmHg. Aortic Valve Trisinus/trileaflet aortic valve. Moderate focal aortic valve calcification. Peak aortic valve gradient 29 mmHg. Mean aortic valve gradient 16 mmHg. Pulmonic Valve Normal pulmonic valve. Great Vessels Normal aortic root. Pericardium/Pleural No pericardial effusion. MMode/2D Measurements Calculations LVIDd: 5.6 cm IVSd: 1.1 cm LVOT diam: 2.0 cm LVIDs: 3.6 cm LVPWd: 1.1 cm LVOT area: 3.1 cm2 RVDd: 3.0 cm FS: 35.5 % Ao root diam: 3.5 cm LAV(MOD-bp): 134.8 ml LVAd ap4: 21.6 cm2 LAV(MOD-bp) Indexed: 75.2 ml/m2 LVLd ap4: 6.7 cm LAV(MOD-sp2): 114.0 ml EDV(MOD-sp4): 57.2 ml LAV(MOD-sp4): 139.6 ml EDV(sp4-el): 59.4 ml LVAs ap4: 10.6 cm2 LVLs ap4: 5.3 cm ESV(MOD-sp4): 19.6 ml ESV(sp4-el): 18.0 ml EF(MOD-sp4): 65.7 % EF(sp4-el): 69.7 % SV(MOD-sp4): 37.6 ml SV(sp4-el): 41.4 ml LA A4 area: 35.0 cm2 SI(MOD-sp4): 21.0 ml/m2 LA dimension(2D): 5.4 cm RA A4 area: 11.5 cm2 Time Measurements MV dec time: 0.17 sec Doppler Measurements Calculations MV E max gerald: 131.0 cm/sec Lat Peak E' Gerald: 10.0 cm/sec Med Peak E' Gerald: 7.1 cm/sec MV A max gerald: 92.7 cm/sec E/E' lat: 13.1 E/E' med: 18.5 MV E/A: 1.4 MV V2 max: 148.4 cm/sec MV P1/2t max gerald: 159.6 cm/sec Ao V2 max: 270.7 cm/sec MV max P.8 mmHg MV P1/2t: 68.1 msec Ao max P.3 mmHg MV V2 mean: 88.2 cm/sec Ao V2 mean: 194.2 cm/sec MV mean P.5 mmHg MV dec slope: 686.1 cm/sec2 Ao mean P.4 mmHg MV V2 VTI: 37.4 cm MVA(P1/2t): 3.2 cm2 Ao V2 VTI: 62.1 cm AV (velocity ratio): 0.39 MVA(VTI): 2.0 cm2 TAMIE(I,D): 1.2 cm2 TAMIE(V,D): 1.2 cm2 LV V1 max: 107.1 cm/sec SV(LVOT): 73.6 ml PA V2 max: 95.8 cm/sec LV V1 max P.6 mmHg PA V2 mean: 64.3 cm/sec LV V1 mean P.4 mmHg PA V2 VTI: 18.8 cm LV V1 mean: 73.2 cm/sec LV V1 VTI: 24.1 cm PI dec slope: 199.9 cm/sec2 TR max gerald: 322.9 cm/sec TR max P.7 mmHg ECHO/Echo Complete Interpretation Summary Normal LV size. Left ventricular systolic function is normal. The left ventricular ejection fraction is 65 %. Stage 2 diastolic dysfunction. Moderate focal aortic valve calcification. Mean aortic valve gradient 16 mmHg. Moderate (2+) eccentric mitral valve insufficiency. The left atrium is severely enlarged. Ordering Physician: Cachorro Whitney Referring Physician: Cachorro Whitney Performed By: Marian Bermudez, RENUKA, RVT 03/05/251656 Date Agustin Morataya MD CC: Dr. Cachorro Whitney MD Date Dictated: 03/03/25 8118 Date Transcribed: 03/05/251656 Finishing Machine Operator: Signed Normal [facility] Anion gap in Serum or Plasma Ordered By: Cachorro Whitney on 02-23-2025 Anion gap [Moles/Vol] 11 mmol/L - [facility] BUN/creatinine ratioOrdered By: Cachorro Whitney on 02-23-2025 Urea nitrogen/Creatinine [Mass ratio] 17.1 mg/mg - [facility] Basic Metabolic Profile (BMP )on 02-23-2025 BUN/CRE 17.1 RATIO Normal 06-12 [facility] Comment on above: Performed By: #### L 501.9520, L100.0500, L100.4500, L500.2500 #### [facility] [address] [place], [address] Calcium [Mass/Vol] 9.5 mg/dL Normal 7.6-11.0 [facility] Comment on above: Performed By: #### L 501.9520, L100.0500, L100.4500, L500.2500 #### [facility] [address] [place], [address] Chloride [Moles/Vol] 103 mmol/L Normal 98-108 [facility] Comment on above: Performed By: #### L 501.9520, L100.0500, L100.4500, L500.2500 #### [facility] [address] [place], [address] CO2 [Moles/Vol] 25.8 mmol/L Normal 21.0-32.0 [facility] Comment on above: Performed By: #### L 501.9520, L100.0500, L100.4500, L500.2500 #### [facility] [address] [place], [address] Creatinine [Mass/Vol] 0.51 mg/dL Low 0.70-1.20 [facility] Comment on above: Performed By: #### L 501.9520, L100.0500, L100.4500, L500.2500 #### [facility] [address] [place], [address] GAP 11 Normal 5-15 [facility] Comment on above: Performed By: #### L 501.9520, L100.0500, L100.4500, L500.2500 #### [facility] [address] [place], [address] GFR/1.73 sq M.predicted among non-blacks MDRD (S/P/Bld) [Vol rate/Area] 94 mL/min/{1.73_m2} Normal >60 [facility] Comment on above: Result Comment: mL/m in/1.73m2 CKD-EPI Creatinine Equation (2020) Performed By: #### L 501.9520, L100.0500, L100.4500, L500.2500 #### [facility] [address] [place], [address] Glucose [Mass/Vol] 113 mg/dL High 70-99 [facility] Comment on above: Performed By: #### L 501.9520, L100.0500, L100.4500, L500.2500 #### [facility] [address] [place], [address] Potassium [Moles/Vol] 4.2 mmol/L Normal 3.3-5.1 [facility] Comment on above: Performed By: #### L 501.9520, L100.0500, L100.4500, L500.2500 #### [facility] [address] [place], [address] Sodium [Moles/Vol] 140 mmol/L Normal 133-145 [facility] Comment on above: Performed By: #### L 501.9520, L100.0500, L100.4500, L500.2500 #### [facility] [address] [place], [address] Urea nitrogen [Mass/Vol] 9 mg/dL Normal 4-19 [facility] Comment on above: Performed By: #### L 501.9520, L100.0500, L100.4500, L500.2500 #### [facility] [address] [place], [address] Blood manual differential co mment interpretation (narrative result)Ordered By: Cachorro Whitney on 02-23-2025 Manual differential comment Telly (Bld) [Interp] SCANNED [facility] Comment on above: 2+ ANISOCYTOSIS CBC-Complete Blood Cnt No Di ffon 02-23-2025 Erythrocyte distribution width (RBC) [Ratio] 24.2 % High 11.6-14.6 [facility] Comment on above: Performed By: #### L 501.9520, L100.0500, L100.4500, L500.2500 #### [facility] [address] [place], [address] Hematocrit (Bld) [Volume fraction] 39.4 % Normal 37-47 [facility] Comment on above: Performed By: #### L 501.9520, L100.0500, L100.4500, L500.2500 #### [facility] [address] [place], [address] Hemoglobin (Bld) [Mass/Vol] 12.7 g/dL Normal 12.0-15.0 [facility] Comment on above: Performed By: #### L 501.9520, L100.0500, L100.4500, L500.2500 #### [facility] [address] [place], [address] MCH (RBC) [Entitic mass] 25.0 pg Low 27.0-32.0 [facility] Comment on above: Performed By: #### L 501.9520, L100.0500, L100.4500, L500.2500 #### [facility] [address] [place], [address] MCHC (RBC) [Mass/Vol] 32.2 g/dL Normal 32-36 [facility] Comment on above: Performed By: #### L 501.9520, L100.0500, L100.4500, L500.2500 #### [facility] [address] [place], [address] MCV (RBC) [Entitic vol] 77.7 fL Low 81-99 [facility] Comment on above: Performed By: #### L 501.9520, L100.0500, L100.4500, L500.2500 #### [facility] [address] [place], [address] Platelet mean volume (Bld) [Entitic vol] 10.1 fL Normal 6.2-12.0 [facility] Comment on above: Performed By: #### L 501.9520, L100.0500, L100.4500, L500.2500 #### [facility] [address] [place], [address] Platelets (Bld) [#/Vol] 201 10*3/uL Normal 150-450 [facility] Comment on above: Performed By: #### L 501.9520, L100.0500, L100.4500, L500.2500 #### [facility] [address] [place], [address] RBC (Bld) [#/Vol] 5.07 10*6/uL Normal 4.2-5.4 [facility] Comment on above: Performed By: #### L 501.9520, L100.0500, L100.4500, L500.2500 #### [facility] [address] [place], [address] RDW SD 64.2 fl High 35.1-43.9 [facility] Comment on above: Performed By: #### L 501.9520, L100.0500, L100.4500, L500.2500 #### [facility] [address] [place], [address] WBC (Bld) [#/Vol] 4.7 10*3/uL Normal 4.4-11.0 [facility] Comment on above: Performed By: #### L 501.9520, L100.0500, L100.4500, L500.2500 #### [facility] [address] [place], [address] Carbon dioxide, total [Moles /volume] in Central venous bloodOrdered By: Cachorro Whitney on 02-23-2025 CO2 [Moles/Vol] 25.8 mmol/L 21.0-32.0 [facility] Chloride assayOrdered By: Salvador Whitney on 02-23-2025 Chloride [Moles/Vol] 103 mmol/L 98-108 [facility] Differential Commenton 02-23 SMEAR COMMENT SCANNED Normal [facility] Comment on above: Result Comment: 2+ A NISOCYTOSIS Performed By: #### L 501.9520, L100.0500, L100.4500, L500.2500 #### [facility] [address] [place], [address] Erythrocyte distribution wid th ratioOrdered By: Cachorro Whitney on 02-23-2025 Erythrocyte distribution width (RBC) [Ratio] 24.2 % High 11.6-14.6 [facility] Erythrocyte distribution wid th standard deviationOrdered By: Cachorro Whitney on 02-23-2025 Erythrocyte distribution width (RBC) [Ratio] 64.2 fl High 35.1-43.9 [facility] Glomerular filtration rate ( GFR) estimation/1.73 sq m using serum, plasma, or whole bOrdered By: Cachorro Whitney on 02-23-2025 GFR/1.73 sq M.predicted among non-blacks MDRD (S/P/Bld) [Vol rate/Area] 94 mL/min/{1.73_m2} >60 [facility] Comment on above: mL/min/1.73m2 CKD-EP I Creatinine Equation (2020) Hematocrit Auto (Bld) [Volum e fraction]Ordered By: Cachorro Whitney on 02-23-2025 Hematocrit (Bld) [Volume fraction] 39.4 % 37-47 [facility] Hemoglobin measurementOrdere d By: Cachorro Whitney on 02-23-2025 Hemoglobin (Bld) [Mass/Vol] 12.7 g/dL 12.0-15.0 [facility] MCV (mean corpuscular volume ) determinationOrdered By: Cachorro Whitney on 02-23-2025 MCV (RBC) [Entitic vol] 77.7 fL Low 81-99 [facility] Mean corpuscular hemoglobin (MCH) determinationOrdered By: Cachorro Whitney on 02-23-2025 MCH (RBC) [Entitic mass] 25.0 pg Low 27.0-32.0 [facility] Mean corpuscular hemoglobin concentration (MCHC) determinationOrdered By: Cachorro Whitney on 02-23-2025 MCHC (RBC) [Mass/Vol] 32.2 g/dL 32-36 [facility] Mean platelet volume determi nationOrdered By: Cachorro Whitney on 02-23-2025 Platelet mean volume (Bld) [Entitic vol] 10.1 fL 6.2-12.0 [facility] Platelet countOrdered By: Salvador Whitney on 02-23-2025 Platelets (Bld) [#/Vol] 201 10*3/uL 150-450 [facility] Potassium measurement (mass/ volume)Ordered By: Cachorro Whitney on 02-23-2025 Potassium (Unsp spec) [Mass/Vol] 4.2 mmol/L 3.3-5.1 [facility] RBC Auto (Bld) [#/Vol]Ordere d By: Cachorro Whitney on 02-23-2025 RBC (Bld) [#/Vol] 5.07 10*6/uL 4.2-5.4 [facility] Serum creatinine measurement (mass/volume)Ordered By: Cachorro Whitney on 02-23-2025 Creatinine [Mass/Vol] 0.51 mg/dL Low 0.70-1.20 [facility] Serum glucose measurement (m ass/volume)Ordered By: Cachorro Whitney on 02-23-2025 Glucose [Mass/Vol] 113 mg/dL High 70-99 [facility] Serum or plasma calcium arya urement (mass/volume)Ordered By: Cachorro Whitney on 02-23-2025 Calcium [Mass/Vol] 9.5 mg/dL 7.6-11.0 [facility] Serum or plasma urea nitroge n measurement (mass/volume)Ordered By: Cachorro Whitney on 02-23-2025 Urea nitrogen [Mass/Vol] 9 mg/dL 4-19 [facility] Sodium levelOrdered By: Cachorro Whitney on 02-23-2025 Sodium [Moles/Vol] 140 mmol/L 133-145 [facility] TSH DL <= 0.005 mIU/L QnOrde red By: Cachorro Whitney on 02-23-2025 TSH Qn 1.930 uIU/mL 0.300-4.20 0 [facility] Thyroid Stim Hormone (TSH)on 02-23-2025 TSH 1.930 uIU/mL Normal 0.300-4.20 0 [facility] Comment on above: Performed By: #### L 501.9520, L100.0500, L100.4500, L500.2500 ####[facility] [address] [place], [address] White blood cell (WBC) count Ordered By: Cachorro Whitney on 02-23-2025 WBC (Bld) [#/Vol] 4.7 10*3/uL 4.4-11.0 [facility] Colonoscopy Reporton 025 Colonoscopy Report [facility] Records Department [address] [place] [address] Colonoscopy Report MR#: [id number] Acct: [id number] Name: KARIE PLASCENCIA Rep #: [id number] : 1945 79 From: Von Velez MD PCP: Dr. Cachorro [place] MD Status:[facility] Patient Name: Karie Plascencia Procedure Date: 02/07/2025 [...] screening purposes. Procedure Code(s): --- Professional --- 75700, Colonoscopy, flexible; diagnostic, including collection of specimen(s) by brushing or washing, when performed (separate procedure) Diagnosis Code(s): --- Professional --- D50.9, Iron deficiency anemia, unspecified CPT copyright 2021 [employer]. All rights reserved. The codes documented in this report are preliminary and upon senior clinical study manager review may be revised to meet current compliance requirements. Von Velez MD 02/07/2025 8:59:20 AM This report has been signed electronically. Number of Addenda: 0 Note Initiated On: 02/07/2025 8:32 AM 02/07/25 0859 Date Von Velez MD Cosigner Signature: Date (if indicated) CC: Dr. Von Velez MD; Dr. Cachorro [place] MD Date Dictated: 02/07/25831 Date Transcribed: Finishing Machine Operator: ALTAGRACIA Signed Normal [facility] EGD Reporton 02-07-2025 EGD Report [facility] Medical Records Department [address] [place] [address] EGD Report MR#: [id number] Acct: [id number] Name: KARIE PLASCENCIA Rep #: [id number] : 1945 79 From: Von Velez MD PCP: Dr. Cachorro [place] MD Status:REG [facility] Patient Name: Karie Plascencia Procedure Date: 02/07/2025 [...] present medications. Procedure Code(s): --- Professional --- 70027, Esophagogastroduodenoscopy, flexible, transoral; diagnostic, including collection of specimen(s) by brushing or washing, when performed (separate procedure) Diagnosis Code(s): --- Professional --- D50.9, Iron deficiency anemia, unspecified CPT copyright 2021 [employer]. All rights reserved. The codes documented in this report are preliminary and upon senior clinical study manager review may be revised to meet current compliance requirements. Von Velez MD 02/07/2025 8:56:06 AM This report has been signed electronically. Number of Addenda: 0 Note Initiated On: 02/07/2025 8:23 AM 02/07/25855 Date Von Velez MD Cosign Signature: Date (if indicated) CC: Dr. Von Velez MD; Dr. Cachorro [place] MD Date Dictated: 02/07/25822 Date Transcribed: Finishing Machine Operator: AC Signed [facility] MR/POSTOP.[facility] 02-07-2025 MR/POSTOP.[facility] Medical Records Department [address] [place] [address] Anesthesia Postop Eval I 02/07/25 0904 MR#: [id number] Acct: [id number] Name: KARIE PLASCENCIA Rep #: [id number] : 1945 79 From: Mingo Sanchez PCP: Dr. Cachorro Whitney MD Status:[facility] Y Race: C Location: EN Anesthesia: Postop [...] 1 completed: Yes 02/07/25 1005 Date Mingo Rayphiljan Signature: Date CC: Signed [facility] MR/CFNGRCLW9hs 02-07-2025 MR/POSTOPAN2 [facility] Medical Records Department [address] [place] [address] Anesthesia Postop Eval II 02/07/25 1011 MR#: [id number] Acct: [id number] Name: KARIE PLASCENCIA Rep #: [id number] : 1945 79 From: Jose Raul Theodore MD PCP: Dr. Cachorro [place] MD Status:[facility] Y Race: C Location: EN Anesthesia Postop [...] MD Cosigner Signature: Date CC: Signed [facility] MR/PATBONITA 02-03-2025 MR/PAT.[facility] Medical Records Department [address] [place] [address] PAT - Anesthesia 02/03/25 1151 MR#: [id number] Acct: [id number] Name: KARIE PLSACENCIA Rep #: [id number] : 1945 79 From: Yuri Mistry MD PCP: Dr. Cachorro [place] MD Status:PRE [facility] Y Race: C Location: EN Pre-Assessment Diagnosis/Proposed Procedure Planned Operative Procedure(s): COLONOSCOPY/EGD Anesthesia History Anesthesia History - counter hop: Anesthesia History - counter hop Hx Hospitalization No 02/03/25 09:14 Any Problems [...] take am of surgery PONV PONV - counter hop: PONV - counter hop Female Yes 02/03/25 09:14 HX of Motion [...] 01/09/25 13:52 Respiratory Assessment Respiratory Assessment - counter hop: Respiratory Tract Infection Hx - counter hop Hx Respiratory Tract Infection No 02/03/25 09:14 STOP Sleep Apnea STOP Sleep Apnea - counter hop: STOP Sleep Apnea - counter hop Hx Hypertension No: hypotension 02/03/25 09:14 Hx [...] Tobacco Use History Tobacco Use History - counter hop: Tobacco Use History - counter hop Tobacco Use Smoking Status Never smoker 02/03/25 09:14 Hx Tobacco Use No 02/03/25 09:14 Years Smoking Packs Smoked per Day Smoking Cessation Date was within the last 15 years Hx Smoking Cessation Date Hx Smoking Cessation Counseling Hematologic Medial History Hematologic Hx - counter hop: 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 Normal [facility] Surgery Visit Reporton 01-09 Surgery Visit Report [facility] [address] [place] [address]. [address] [place] [address] OFFICE VISIT Date of Service: 01/09/25 MR#: [id number] Acct: [id number] Name: KARIE PLASCENCIA Rep #: [id number] : 1945 Provider: Dr. Von chun MD Age/Sex: 79/F Location: [facility] Status: Signed Intake Vital Signs 01/07/21 [...] Chest C (more content not included)... Normal [facility] Absolute lymphocyte countOrd ered By: Cachorro [place] on 12-28-2024 Lymphocytes Auto (Unsp spec) [#/Vol] 1.06 10*3/uL 0.83-4.51 [facility] Absolute neutrophil countOrd ered By: Cachorro Whitney on 12-28-2024 Neutrophils (Bld) [#/Vol] 2.0 10*3/uL 2.0-7.7 [facility] Anion gap in Serum or Plasma Ordered By: Cachorro Whitney on 12-28-2024 Anion gap [Moles/Vol] 11 mmol/L 5-15 [facility] Automated lymphocyte count a s percentage of total leukocytesOrdered By: Cachorro Whitney on 12-28-2024 Lymphocytes/100 WBC Auto (Unsp spec) 29.9 % - [facility] BUN/creatinine ratioOrdered By: Cachorro Whitney on 12-28-2024 Urea nitrogen/Creatinine [Mass ratio] 13.1 mg/mg 10- [facility] Basophil percentageOrdered B y: Cachorro Whitney on 12-28-2024 Basophils/100 WBC (Bld) 0.6 % 0-1 [facility] Bilirubin, totalOrdered By: Cachorro Whitney on 12-28-2024 Bilirubin [Mass/Vol] 0.31 mg/dL 0.00-1.30 [facility] CBC W/Diff, Automatedon Absolute Lymph 1.06 X10 3/uL Normal 0.83-4.51 [facility] Comment on above: Performed By: #### L 500.4100, L500.4050, L506.0400, L501.9520, L502.0250, L501.64351, L100.0100 ####[facility] [address] [place], [address] Absolute Neut 2.0 X10 3/uL Normal 2.0-7.7 [facility] Comment on above: Performed By: #### L 500.4100, L500.4050, L506.0400, L501.9520, L502.0250, L501.77301, L100.0100 ####[facility] [address] [place], [address] Basophils/100 WBC (Bld) 0.6 % Normal 0-1 [facility] Comment on above: Performed By: #### L 500.4100, L500.4050, L506.0400, L501.9520, L502.0250, L501.90242, L100.0100 ####[facility] [address] [place], [address] Eosinophils/100 WBC (Bld) 4.0 % Normal 0-5 [facility] Comment on above: Performed By: #### L 500.4100, L500.4050, L506.0400, L501.9520, L502.0250, L501.40707, L100.0100 ####[facility] [address] [place], [address] Erythrocyte distribution width (RBC) [Ratio] 18.7 % High 11.6-14.6 [facility] Comment on above: Performed By: #### L 500.4100, L500.4050, L506.0400, L501.9520, L502.0250, L501.58072, L100.0100 ####[facility] [address] [place], [address] Hematocrit (Bld) [Volume fraction] 27.8 % Low 37-47 [facility] Comment on above: Performed By: #### L 500.4100, L500.4050, L506.0400, L501.9520, L502.0250, L501.98389, L100.0100 ####[facility] [address] [place], [address] Hemoglobin (Bld) [Mass/Vol] 8.2 g/dL Low 12.0-15.0 [facility] Comment on above: Performed By: #### L 500.4100, L500.4050, L506.0400, L501.9520, L502.0250, L501.14645, L100.0100 ####[facility] [address] [place], [address] IG% 0.000 Normal 0.0-0.9 [facility] Comment on above: Result Comment: IG% - Immature Granulocytes (promyelocytes, myelocytes and metamyelocytes) > 1% indicates that a LEFT SHIFT is Present. Performed By: #### L 500.4100, L500.4050, L506.0400, L501.9520, L502.0250, L501.50552, L100.0100 ####[facility] [address] [place], [address] Lymphocytes/100 WBC (Bld) 29.9 % Normal 19-41 [facility] Comment on above: Performed By: #### L 500.4100, L500.4050, L506.0400, L501.9520, L502.0250, L501.50837, L100.0100 ####[facility] [address] [place], [address] MCH (RBC) [Entitic mass] 20.2 pg Low 27.0-32.0 [facility] Comment on above: Performed By: #### L 500.4100, L500.4050, L506.0400, L501.9520, L502.0250, L501.31631, L100.0100 ####[facility] [address] [place], [address] MCHC (RBC) [Mass/Vol] 29.5 g/dL Low 32-36 [facility] Comment on above: Performed By: #### L 500.4100, L500.4050, L506.0400, L501.9520, L502.0250, L501.83263, L100.0100 ####[facility] [address] [place], [address] MCV (RBC) [Entitic vol] 68.6 fL Low 81-99 [facility] Comment on above: Performed By: #### L 500.4100, L500.4050, L506.0400, L501.9520, L502.0250, L501.71437, L100.0100 ####[facility] [address] [place], [address] Monocytes/100 WBC (Bld) 9.0 % Normal 0-10 [facility] Comment on above: Performed By: #### L 500.4100, L500.4050, L506.0400, L501.9520, L502.0250, L501.59019, L100.0100 ####[facility] [address] [place], [address] Neutrophils/100 WBC (Bld) 56.5 % Normal 47-70 [facility] Comment on above: Performed By: #### L 500.4100, L500.4050, L506.0400, L501.9520, L502.0250, L501.32438, L100.0100 ####[facility] [address] [place], [address] Nucleated RBC (Bld) [#/Vol] 0 10*3/uL Normal 0-5 [facility] Comment on above: Performed By: #### L 500.4100, L500.4050, L506.0400, L501.9520, L502.0250, L501.57687, L100.0100 ####[facility] [address] [place], [address] Platelet mean volume (Bld) [Entitic vol] 10.0 fL Normal 6.2-12.0 [facility] Comment on above: Performed By: #### L 500.4100, L500.4050, L506.0400, L501.9520, L502.0250, L501.07682, L100.0100 ####[facility] [address] [place], [address] Platelets (Bld) [#/Vol] 241 10*3/uL Normal 150-450 [facility] Comment on above: Performed By: #### L 500.4100, L500.4050, L506.0400, L501.9520, L502.0250, L501.20125, L100.0100 ####[facility] [address] [place], [address] RBC (Bld) [#/Vol] 4.05 10*6/uL Low 4.2-5.4 [facility] Comment on above: Performed By: #### L 500.4100, L500.4050, L506.0400, L501.9520, L502.0250, L501.77833, L100.0100 ####[facility] [address] [place], [address] RDW SD 46.2 fl High 35.1-43.9 [facility] Comment on above: Performed By: #### L 500.4100, L500.4050, L506.0400, L501.9520, L502.0250, L501.93250, L100.0100 ####[facility] [address] [place], [address] WBC (Bld) [#/Vol] 3.5 10*3/uL Low 4.4-11.0 [facility] Comment on above: Performed By: #### L 500.4100, L500.4050, L506.0400, L501.9520, L502.0250, L501.87609, L100.0100 ####[facility] [address] [place], [address] Calculated very low density lipoprotein (VLDL) cholesterol measurementOrdered By: Cachorro Whitney on 12-28-2024 Calculated very low density lipoprotein (VLDL) cholesterol measurement 20 mg/dL 5-40 [facility] Carbon dioxide, total [Moles /volume] in Central venous bloodOrdered By: Cachorro Whitney on 12-28-2024 CO2 [Moles/Vol] 23.5 mmol/L 21.0-32.0 [facility] Chloride assayOrdered By: Salvador Whitney on 12-28-2024 Chloride [Moles/Vol] 107 mmol/L 98-108 [facility] Comprehensive Metabolic Prof ilon 12-28-2024 Albumin [Mass/Vol] 4.2 g/dL Normal 3.4-4.8 [facility] Comment on above: Performed By: #### L 500.4100, L500.4050, L506.0400, L501.9520, L502.0250, L501.31512, L100.0100 ####[facility] [address] [place], [address] Albumin/Globulin [Mass ratio] 1.7 {ratio} Normal 0.9-2.4 [facility] Comment on above: Performed By: #### L 500.4100, L500.4050, L506.0400, L501.9520, L502.0250, L501.18921, L100.0100 ####[facility] [address] [place], [address] ALK PHOS 63 U/L Normal 35-104 [facility] Comment on above: Performed By: #### L 500.4100, L500.4050, L506.0400, L501.9520, L502.0250, L501.61665, L100.0100 ####[facility] [address] [place], [address] ALT [Catalytic activity/Vol] 16 U/L Normal <=34 [facility] Comment on above: Performed By: #### L 500.4100, L500.4050, L506.0400, L501.9520, L502.0250, L501.53857, L100.0100 ####[facility] [address] [place], [address] AST [Catalytic activity/Vol] 18 U/L Normal <=31 [facility] Comment on above: Performed By: #### L 500.4100, L500.4050, L506.0400, L501.9520, L502.0250, L501.66543, L100.0100 ####[facility] [address] [place], [address] Bilirubin [Mass/Vol] 0.31 mg/dL Normal 0.00-1.30 [facility] Comment on above: Performed By: #### L 500.4100, L500.4050, L506.0400, L501.9520, L502.0250, L501.58348, L100.0100 ####[facility] [address] [place], [address] BUN/CRE 13.1 RATIO Normal 10-20 [facility] Comment on above: Performed By: #### L 500.4100, L500.4050, L506.0400, L501.9520, L502.0250, L501.46401, L100.0100 ####[facility] [address] [place], [address] Calcium [Mass/Vol] 9.2 mg/dL Normal 7.6-11.0 [facility] Comment on above: Performed By: #### L 500.4100, L500.4050, L506.0400, L501.9520, L502.0250, L501.09678, L100.0100 ####[facility] [address] [place], [address] Chloride [Moles/Vol] 107 mmol/L Normal 98-108 [facility] Comment on above: Performed By: #### L 500.4100, L500.4050, L506.0400, L501.9520, L502.0250, L501.97203, L100.0100 ####[facility] [address] [place], [place], [id number] CO2 [Moles/Vol] 23.5 mmol/L Normal 21.0-32.0 [facility] Comment on above: Performed By: #### L 500.4100, L500.4050, L506.0400, L501.9520, L502.0250, L501.59871, L100.0100 ####[facility] [address] [place], [place], [id number] Creatinine [Mass/Vol] 0.57 mg/dL Low 0.70-1.20 [facility] Comment on above: Performed By: #### L 500.4100, L500.4050, L506.0400, L501.9520, L502.0250, L501.62625, L100.0100 ####[facility] [address] [place], [place], [id number] GAP 11 Normal 5-15 [facility] Comment on above: Performed By: #### L 500.4100, L500.4050, L506.0400, L501.9520, L502.0250, L501.56110, L100.0100 ####[facility] [address] [place], [place], [id number] GFR/1.73 sq M.predicted among non-blacks MDRD (S/P/Bld) [Vol rate/Area] 92 mL/min/{1.73_m2} Normal >60 [facility] Comment on above: Result Comment: mL/m in/1.73m2 CKD-EPI Creatinine Equation (2020) Performed By: #### L 500.4100, L500.4050, L506.0400, L501.9520, L502.0250, L501.14054, L100.0100 ####[facility] [address] [place], [address] Globulin (S) [Mass/Vol] 2.5 g/dL Normal 2.2-4.2 [facility] Comment on above: Performed By: #### L 500.4100, L500.4050, L506.0400, L501.9520, L502.0250, L501.01237, L100.0100 ####[facility] [address] [place], [address] Glucose [Mass/Vol] 103 mg/dL High 70-99 [facility] Comment on above: Performed By: #### L 500.4100, L500.4050, L506.0400, L501.9520, L502.0250, L501.69668, L100.0100 ####[facility] [address] [place], [address] Potassium [Moles/Vol] 3.8 mmol/L Normal 3.3-5.1 [facility] Comment on above: Performed By: #### L 500.4100, L500.4050, L506.0400, L501.9520, L502.0250, L501.11527, L100.0100 ####[facility] [address] [place], [address] Sodium [Moles/Vol] 141 mmol/L Normal 133-145 [facility] Comment on above: Performed By: #### L 500.4100, L500.4050, L506.0400, L501.9520, L502.0250, L501.05640, L100.0100 ####[facility] [address] [place], [address] T PROT 6.7 g/dL Normal 5.9-8.4 [facility] Comment on above: Performed By: #### L 500.4100, L500.4050, L506.0400, L501.9520, L502.0250, L501.91790, L100.0100 ####[facility] [address] [place], [place], [id number] Urea nitrogen [Mass/Vol] 7 mg/dL Normal 4-19 [facility] Comment on above: Performed By: #### L 500.4100, L500.4050, L506.0400, L501.9520, L502.0250, L501.60804, L100.0100 ####[facility] [address] [place], [place], [phone](202) Eosinophil percentageOrdered By: Cachorro Whitney on 12-28-2024 Eosinophils/100 WBC (Bld) 4.0 % 0-5 [facility] Erythrocyte distribution wid th ratioOrdered By: Cachorro Whitney on 12-28-2024 Erythrocyte distribution width (RBC) [Ratio] 18.7 % High 11.6-14.6 [facility] Erythrocyte distribution wid th standard deviationOrdered By: Cachorro Wihtney on 12-28-2024 Erythrocyte distribution width (RBC) [Ratio] 46.2 fl High 35.1-43.9 [facility] Free T3on 12-28-2024 Free T3 [Mass/Vol] 2.6 pg/mL Normal 2.18-3.98 [facility] Comment on above: Performed By: #### L 500.4100, L500.4050, L506.0400, L501.9520, L502.0250, L501.14474, L100.0100 ####[facility] [address] [place], [place], [id number] Free X4Tyvmfln By: Cachorro kim on 12-28-2024 Free T3 [Mass/Vol] 2.6 pg/mL 2.18-3.98 [facility] Glomerular filtration rate ( GFR) estimation/1.73 sq m using serum, plasma, or whole bOrdered By: Cachorro Whitney on 12-28-2024 GFR/1.73 sq M.predicted among non-blacks MDRD (S/P/Bld) [Vol rate/Area] 92 mL/min/{1.73_m2} >60 [facility] Comment on above: mL/min/1.73m2 CKD-EP I Creatinine Equation (2020) Hematocrit Auto (Bld) [Volum e fraction]Ordered By: Cachorro Whitney on 12-28-2024 Hematocrit (Bld) [Volume fraction] 27.8 % Low 37-47 [facility] Hemoglobin measurementOrdere d By: Cachorro Whitney on 12-28-2024 Hemoglobin (Bld) [Mass/Vol] 8.2 g/dL Low 12.0-15.0 [facility] Immature granulocytes/100 WB C Auto (Bld)Ordered By: Cachorro Whitney on 12-28-2024 Immature granulocytes/100 WBC (Bld) 0.000 % 0.0-0.9 [facility] Comment on above: IG% - Immature Granu locytes (promyelocytes, myelocytes and metamyelocytes) > 1% indicates that a LEFT SHIFT is Present. LDL calc ser/plasOrdered By: Cachorro Whitney on 12-28-2024 Cholesterol in LDL [Mass/Vol] 167 mg/dL [facility] Comment on above: Zhxfnxizlo=209-086 m g/dL & Higher Epim=231 mg/dL or greater Laboratory - Chemistry and C hemistry - challengeOrdered By: Cachorro Whitney on 12-28-2024 AST [Catalytic activity/Vol] 18 U/L <32 [facility] Lipid Profileon 12-28-2024 CHOL:HDL 3.59 Normal [facility] Comment on above: Performed By: #### L 500.4100, L500.4050, L506.0400, L501.9520, L502.0250, L501.60135, L100.0100 ####[facility] [address] [place], [place], [id number] Cholesterol [Mass/Vol] 259 mg/dL High <=200 [facility] Comment on above: Result Comment: Chol esterol level, Desirable <200 mg/dL Borderline high cholesterol 200-239 mg/dL High cholesterol >=240 mg/dL Recommendations of the NCEP Adult Treatment Panel for the following risk-cutoff thresholds for the [place] population. Performed By: #### L 500.4100, L500.4050, L506.0400, L501.9520, L502.0250, L501.43913, L100.0100 ####[facility] [address] [place], [address] Cholesterol in HDL [Mass/Vol] 72 mg/dL Normal [facility] Comment on above: Result Comment: Cassie onal Cholesterol Education Program (NCEP) guidelines: <40 mg/dL: Low HDL-cholesterol (major risk factor for CHD) >= 60 mg/dL: High HDL-cholesterol (negative risk factor for CHD) HDL-cholesterol is affected by a number of factors, e.g. smoking, exercise, hormones, sex and age. Performed By: #### L 500.4100, L500.4050, L506.0400, L501.9520, L502.0250, L501.32931, L100.0100 ####[facility] [address] [place], [address] Cholesterol in LDL [Mass/Vol] 167 mg/dL Normal [facility] Comment on above: Result Comment: Bord ejxauc=488-191 mg/dL Higher Ttxq=450 mg/dL or greater Performed By: #### L 500.4100, L500.4050, L506.0400, L501.9520, L502.0250, L501.32301, L100.0100 ####[facility] [address] [place], [address] Cholesterol in VLDL [Mass/Vol] 20 mg/dL Normal 5-40 [facility] Comment on above: Performed By: #### L 500.4100, L500.4050, L506.0400, L501.9520, L502.0250, L501.64723, L100.0100 ####[facility] [address] [place], [address] Triglyceride [Mass/Vol] 98 mg/dL Normal [facility] Comment on above: Result Comment: The drugs N-Acetylcysteine and Metamizole may falsely depress this assay. Normal range: <150 mg/dL Borderline High: 150-199 mg/dL High: 200-499 mg/dL Very High: >500 mg/dL Performed By: #### L 500.4100, L500.4050, L506.0400, L501.9520, L502.0250, L501.86618, L100.0100 ####[facility] [address] [place], [place], [id number] MCV (mean corpuscular volume ) determinationOrdered By: Cachorro Whitney on 12-28-2024 MCV (RBC) [Entitic vol] 68.6 fL Low 81-99 [facility] Mean corpuscular hemoglobin (MCH) determinationOrdered By: Cachorro Whitney on 12-28-2024 MCH (RBC) [Entitic mass] 20.2 pg Low 27.0-32.0 [facility] Mean corpuscular hemoglobin concentration (MCHC) determinationOrdered By: Cachorro Whitney on 12-28-2024 MCHC (RBC) [Mass/Vol] 29.5 g/dL Low 32-36 [facility] Mean platelet volume determi nationOrdered By: Cachorro Whitney on 12-28-2024 Platelet mean volume (Bld) [Entitic vol] 10.0 fL 6.2-12.0 [facility] Microalb:Creat Ratio,Random URon 12-28-2024 Creatinine [Mass/Vol] 32.20 mg/dL Normal 28.00- 217. 00 [facility] Comment on above: Performed By: #### L 500.4100, L500.4050, L506.0400, L501.9520, L502.0250, L501.90749, L100.0100 ####[facility] [address] [place], [place], [id number] MALB:CREAT UNABLE TO CALCULATE Normal [facility] Comment on above: Performed By: #### L 500.4100, L500.4050, L506.0400, L501.9520, L502.0250, L501.71850, L100.0100 ####[facility] [address] [place], [address] MICROALBUMIN,UR < 12.0 Normal NO RANGE EST. [facility] Comment on above: Performed By: #### L 500.4100, L500.4050, L506.0400, L501.9520, L502.0250, L501.29242, L100.0100 ####[facility] [address] [place], [address] Microalbumin/creat ratio urO rdered By: Cachorro Whitney on 12-28-2024 Urine microalbumin/creatinin e ratio measurement UNABLE TO CALCULATE mg/g CRE [facility] Monocyte percentageOrdered B y: Cachorro Whitney on 12-28-2024 Monocytes/100 WBC (Bld) 9.0 % 0-10 [facility] Neutrophil percentageOrdered By: Cachorro Whitney on 12-28-2024 Neutrophils/100 WBC (Bld) 56.5 % 47-70 [facility] Nucleated red blood cell per centageOrdered By: Cachorro Whitney on 12-28-2024 Nucleated RBC/100 WBC (Bld) [Ratio] 0 % 0-5 [facility] Platelet countOrdered By: Salvador Whitney on 12-28-2024 Platelets (Bld) [#/Vol] 241 10*3/uL 150-450 [facility] Potassium measurement (mass/ volume)Ordered By: Cachorro Whitney on 12-28-2024 Potassium (Unsp spec) [Mass/Vol] 3.8 mmol/L 3.3-5.1 [facility] RBC Auto (Bld) [#/Vol]Ordere d By: Cachorro Whitney on 12-28-2024 RBC (Bld) [#/Vol] 4.05 10*6/uL Low 4.2-5.4 [facility] Random urine creatinine arya urement (mass/volume)Ordered By: Cachorro Whitney on 12-28-2024 Creatinine Unsp time (U) [Mass/Vol] 32.20 mg/dL 28.00-217. 00 [facility] Screening total cholesterol/ high density lipoprotein (HDL) cholesterol ratioOrdered By: Cachorro Whitney on 12-28-2024 Cholesterol.total/Chol esterol in HDL [Mass ratio] 3.59 {ratio} [facility] Serum creatinine measurement (mass/volume)Ordered By: Cachorro Whitney on 12-28-2024 Creatinine [Mass/Vol] 0.57 mg/dL Low 0.70-1.20 [facility] Serum globulin measurementOr dered By: Cachorro Whitney on 12-28-2024 Globulin (S) [Mass/Vol] 2.5 g/dL 2.2-4.2 [facility] Serum glucose measurement (m ass/volume)Ordered By: Cachorro Whitney on 12-28-2024 Glucose [Mass/Vol] 103 mg/dL High 70-99 [facility] Serum or plasma alanine morejon otransferase (ALT) measurementOrdered By: Cachorro Whitney on 12-28-2024 ALT [Catalytic activity/Vol] 16 U/L <35 [facility] Serum or plasma albumin arya urement (mass/volume)Ordered By: Cachorro Whitney on 12-28-2024 Albumin [Mass/Vol] 4.2 g/dL 3.4-4.8 [facility] Serum or plasma albumin/glob ulin mass ratioOrdered By: Cachorro Whitney on 12-28-2024 Albumin/Globulin [Mass ratio] 1.7 {ratio} 0.9-2.4 [facility] Serum or plasma alkaline altagracia sphatase measurementOrdered By: Cachorro Whitney on 12-28-2024 ALP [Catalytic activity/Vol] 63 U/L 35-104 [facility] Serum or plasma calcium arya urement (mass/volume)Ordered By: Cachorro Whitney on 12-28-2024 Calcium [Mass/Vol] 9.2 mg/dL 7.6-11.0 [facility] Serum or plasma cholesterol in HDL measurement (mass/volume)Ordered By: Cachorro Whitney on 12-28-2024 Cholesterol in HDL [Mass/Vol] 72 mg/dL >40 [facility] Comment on above: National Cholesterol Education Program (NCEP) guidelines:<40 mg/dL: Low HDL-cholesterol (major risk factor for CHD)>= 60 mg/dL: High HDL-cholesterol (negative risk factor for CHD)HDL-cholesterol is affected by a number of factors, e.g. smoking, exercise, hormones, sex and age. Serum or plasma cholesterol measurement (mass/volume)Ordered By: Cachorro Whitney on 12-28-2024 Cholesterol [Mass/Vol] 259 mg/dL High <201 [facility] Comment on above: Cholesterol level, D esirable <200 mg/dLBorderline high cholesterol 200-239 mg/dLHigh cholesterol >=240 mg/dLRecommendations of the NCEP Adult Treatment Panel for the following risk-cutoff thresholds for the [place] population. Serum or plasma urea nitroge n measurement (mass/volume)Ordered By: Cachorro Whitney on 12-28-2024 Urea nitrogen [Mass/Vol] 7 mg/dL 4-19 [facility] Sodium levelOrdered By: Cachorro Whitney on 12-28-2024 Sodium [Moles/Vol] 141 mmol/L 133-145 [facility] T4 Free Directon 12-28-2024 T4 FREE DIRECT 1.30 ng/dL Normal 0.76-1.46 [facility] Comment on above: Performed By: #### L 500.4100, L500.4050, L506.0400, L501.9520, L502.0250, L501.99958, L100.0100 ####[facility] [address] [place], [address] T4 freeOrdered By: Cachorro kim on 12-28-2024 Free T4 [Mass/Vol] 1.30 ng/dL 0.76-1.46 [facility] TSH DL <= 0.005 mIU/L QnOrde red By: Cachorro Whitney on 12-28-2024 TSH Qn 1.220 uIU/mL 0.300-4.20 0 [facility] Thyroid Stim Hormone (TSH)on 12-28-2024 TSH 1.220 uIU/mL Normal 0.300-4.20 0 [facility] Comment on above: Performed By: #### L 500.4100, L500.4050, L506.0400, L501.9520, L502.0250, L501.63542, L100.0100 ####[facility] [address] [place], [place], [id number] Total proteinOrdered By: Erinn Whitney on 12-28-2024 Protein [Mass/Vol] 6.7 g/dL 5.9-8.4 [facility] Triglycerides measurementOrd ered By: Cachorro Whitney on 12-28-2024 Triglyceride [Mass/Vol] 98 mg/dL <199 [facility] Comment on above: The drugs N-Acetylcy steine and Metamizole may falsely depress this assay. Normal range: <150 mg/dLBorderline High: 150-199 mg/dLHigh: 200-499 mg/dLVery High: >500 mg/dL Urine albumin measurement wi th detection limit of 20 mg/L or less (mass/volume)Ordered By: Cachorro Whitney on 12-28-2024 Albumin DL <= 20 mg/L (U) [Mass/Vol] < 12.0 mg/L NO RANGE EST. [facility] White blood cell (WBC) count Ordered By: Cachorro Whitney on 12-28-2024 WBC (Bld) [#/Vol] 3.5 10*3/uL Low 4.4-11.0 [facility] Urine Cultureon 09-08-2024 URC Klebsiella pneumonia e sp pneum [place] Count 80,000-100,000 Klebsiella pneumoniae sp pneum: REACTION [...] TMP SMX Islt SHAY <=20 S Normal [facility] Comment on above: Performed By: #### L 501.9520, L506.0400, L501.84519, L500.4050, L500.4100 #### [facility] [address] [place], [address] Urine cultureOrdered By: Brittni Calderon on 09-06-2024 Bacteria identified Cx Nom (U) Klebsiella pneumoniae sp pneum Abnormal [facility] Comprehensive Metabolic Prof ilon 07-01-2024 Albumin [Mass/Vol] 3.7 g/dL Normal 3.2-5.0 [facility] Comment on above: Performed By: #### L 501.9520, L506.0400, L501.25565, L500.4050, L500.4100 #### [facility] [address] [place], [address] Albumin/Globulin [Mass ratio] 1.1 {ratio} Normal 0.9-2.4 [facility] Comment on above: Performed By: #### L 501.9520, L506.0400, L501.70594, L500.4050, L500.4100 #### [facility] [address] [place], [address] ALK P 63 U/L Normal 45-117 [facility] Comment on above: Performed By: #### L 501.9520, L506.0400, L501.44925, L500.4050, L500.4100 #### [facility] [address] [place], [address] ALT [Catalytic activity/Vol] 20 U/L Normal 13-56 [facility] Comment on above: Performed By: #### L 501.9520, L506.0400, L501.14557, L500.4050, L500.4100 #### [facility] [address] [place], [address] AST [Catalytic activity/Vol] 16 U/L Normal 15-37 [facility] Comment on above: Performed By: #### L 501.9520, L506.0400, L501.23802, L500.4050, L500.4100 #### [facility] [address] [place], [address] Bilirubin [Mass/Vol] 0.40 mg/dL Normal 0.20-1.00 [facility] Comment on above: Result Comment: For patients on eltrombopag therapy, use of Dimension [place] TBIL is not recommended. Performed By: #### L 501.9520, L506.0400, L501.08077, L500.4050, L500.4100 #### [facility] [address] [place], [address] BUN/CRE 19.1 RATIO Normal 10-20 [facility] Comment on above: Performed By: #### L 501.9520, L506.0400, L501.23331, L500.4050, L500.4100 #### [facility] [address] [place], [address] CA,Total 9.4 mg/dL Normal 8.5-10.1 [facility] Comment on above: Performed By: #### L 501.9520, L506.0400, L501.81347, L500.4050, L500.4100 #### [facility] [address] [place], [address] Chloride [Moles/Vol] 106 mmol/L Normal 98-107 [facility] Comment on above: Performed By: #### L 501.9520, L506.0400, L501.21680, L500.4050, L500.4100 #### [facility] [address] [place], [address] CO2 [Moles/Vol] 26.0 mmol/L Normal 21.0-32.0 [facility] Comment on above: Performed By: #### L 501.9520, L506.0400, L501.89337, L500.4050, L500.4100 #### [facility] [address] [place], [address] Creatinine [Mass/Vol] 0.58 mg/dL Normal 0.55-1.02 [facility] Comment on above: Result Comment: The validity of the calculated GFR GFRAA in patients over 70 years has not been determined. Clinical correlation is essential. Performed By: #### L 501.9520, L506.0400, L501.07106, L500.4050, L500.4100 #### [facility] [address] [place], [address] EST GFR - AA 130 mL/min Normal >60 [facility] Comment on above: Result Comment: Afri can [place] GFR Calc Performed By: #### L 501.9520, L506.0400, L501.74315, L500.4050, L500.4100 #### [facility] [address] [place], [address] GAP 6 Normal 5-15 [facility] Comment on above: Performed By: #### L 501.9520, L506.0400, L501.52790, L500.4050, L500.4100 #### [facility] [address] [place], [address] GFR/1.73 sq M.predicted among non-blacks MDRD (S/P/Bld) [Vol rate/Area] 107 mL/min/{1.73_m2} Normal >60 [facility] Comment on above: Result Comment: Non- GFR Calc Performed By: #### L 501.9520, L506.0400, L501.22914, L500.4050, L500.4100 #### [facility] [address] [place], [address] Globulin (S) [Mass/Vol] 3.5 g/dL Normal 2.2-4.2 [facility] Comment on above: Performed By: #### L 501.9520, L506.0400, L501.82884, L500.4050, L500.4100 #### [facility] [address] [place], [address] Glucose [Mass/Vol] 148 mg/dL High 74-106 [facility] Comment on above: Result Comment: Fast ing Glucose result greater than or equal to 126 mg/dL suggests DIABETES MELLITUS per A.D.A. criteria. Performed By: #### L 501.9520, L506.0400, L501.41166, L500.4050, L500.4100 #### [facility] [address] [place], [address] Potassium [Moles/Vol] 4.0 mmol/L Normal 3.5-5.1 [facility] Comment on above: Performed By: #### L 501.9520, L506.0400, L501.61654, L500.4050, L500.4100 #### [facility] [address] [place], [address] Sodium [Moles/Vol] 138 mmol/L Normal 136-145 [facility] Comment on above: Performed By: #### L 501.9520, L506.0400, L501.90035, L500.4050, L500.4100 #### [facility] [address] [place], [address] T PROT 7.2 g/dL Normal 6.4-8.2 [facility] Comment on above: Performed By: #### L 501.9520, L506.0400, L501.77550, L500.4050, L500.4100 #### [facility] [address] [place], [address] Urea nitrogen [Mass/Vol] 11 mg/dL Normal 7-18 [facility] Comment on above: Performed By: #### L 501.9520, L506.0400, L501.30032, L500.4050, L500.4100 #### [facility] [address] [place], [address] Free T3on 07-01-2024 Free T3 [Mass/Vol] 2.6 pg/mL Normal 2.18-3.98 [facility] Comment on above: Performed By: #### L 501.9520, L506.0400, L501.68050, L500.4050, L500.4100 #### [facility] [address] [place], [address] Lipid Profileon 07-01-2024 Cholesterol [Mass/Vol] 260 mg/dL High 200 [facility] Comment on above: Result Comment: <200 mg/dL Desirable 200-240 mg/dL Borderline >240 mg/dL High Risk Performed By: #### L 501.9520, L506.0400, L501.76122, L500.4050, L500.4100 #### [facility] [address] [place], [address] Cholesterol in HDL [Mass/Vol] 73 mg/dL Normal [facility] Comment on above: Result Comment: The drugs N-Acetylcysteine and Metamizole may falsely depress this assay. Reference Range HDL <40 mg/dL Low HDL Cholesterol HDL >or= 60 mg/dL High HDL Cholesterol Performed By: #### L [id number], L506.0400, L501.85131, L500.4050, L500.4100 #### [facility] [address] [place], [address] Cholesterol in LDL [Mass/Vol] 161 mg/dL High 0-130 [facility] Comment on above: Performed By: #### L [id number], L506.0400, L501.23342, L500.4050, L500.4100 #### [facility] [address] [place], [address] Cholesterol in VLDL [Mass/Vol] 26 mg/dL Normal 5-40 [facility] Comment on above: Performed By: #### L [id number], L506.0400, [id number], L500.4050, L500.4100 #### [facility] [address] [place], [address] Triglyceride [Mass/Vol] 129 mg/dL Normal [facility] Comment on above: Result Comment: The drugs N-Acetylcysteine and Metamizole may falsely depress this assay. Serum Triglycerides Reference Interval Normal <150 mg/dL Borderline high 150 - 199 mg/dL High 200 - 499 mg/dL Very High > or = 500 mg/dL Performed By: #### L [id number], L506.0400, [id number], L500.4050, L500.4100 #### [facility] [address] [place], [address] T4 Free Directon 07-01-2024 T4 FREE DIRECT 1.11 ng/dL Normal 0.76-1.46 [facility] Comment on above: Performed By: #### L [id number], L506.0400, [id number], L500.4050, L500.4100 #### [facility] [address] [facility] [place], [address] Thyroid Stim Hormone (TSH)on 07-01-2024 TSH 1.520 uIU/mL Normal 0.358-3.74 0 [facility] Comment on above: Performed By: #### L [id number], L506.0400, [id number], [id number], L500.4100 #### [facility] [address] [place], [address] Absolute lymphocyte countOrd ered By: Cachorro Whitney on 12-28-2023 Lymphocytes Auto (Unsp spec) [#/Vol] 1.15 10*3/uL 0.83-4.51 [facility] Automated lymphocyte count a s percentage of total leukocytesOrdered By: Cachorro Whitney on 12-28-2023 Lymphocytes/100 WBC Auto (Unsp spec) 27.7 % 19-41 [facility] Basophil percentageOrdered B y: Cachorro Whitney on 12-28-2023 Basophils/100 WBC (Bld) 0.7 % 0-1 [facility] Bilirubin [Mass/Vol] 0.40 mg/dL 0.20-1.00 [facility] Comment on above: For patients on eltr ombopag therapy, use of Dimension [place] TBIL is not recommended. Chloride [Moles/Vol] 107 mmol/L 98-107 [facility] Cholesterol [Mass/Vol] 319 mg/dL <200 [facility] Comment on above: <200 mg/dL Desirable 200-240 mg/dL Borderline >240 mg/dL High Risk Eosinophils/100 WBC (Bld) 7.0 % 0-5 [facility] Glucose [Mass/Vol] 143 mg/dL 74-106 [facility] Comment on above: Fasting Glucose resu lt greater than or equal to 126 mg/dL suggests DIABETES MELLITUS per A.D.A. criteria. Hemoglobin (Bld) [Mass/Vol] 10.1 g/dL 12.0-15.0 [facility] Monocytes/100 WBC (Bld) 8.7 % 0-10 [facility] Neutrophils (Bld) [#/Vol] 2.3 10*3/uL 2.0-7.7 [facility] Neutrophils/100 WBC (Bld) 55.7 % 47-70 [facility] Potassium [Moles/Vol] 3.8 mmol/L 3.5-5.1 [facility] Protein [Mass/Vol] 7.2 g/dL 6.4-8.2 [facility] Sodium [Moles/Vol] 140 mmol/L 136-145 [facility] Triglyceride [Mass/Vol] 116 mg/dL <199 [facility] Comment on above: The drugs N-Acetylcy steine and Metamizole may falsely depress this assay.Serum Triglycerides Reference Interval Normal <150 mg/dL Borderline high 150 - 199 mg/dL High 200 - 499 mg/dL Very High > or = 500 mg/dL WBC (Bld) [#/Vol] 4.2 10*3/uL 4.4-11.0 [facility] Determination of erythrocyte mean corpuscular volume (MCV)Ordered By: Cachorro Whitney on 12-28-2023 MCV (RBC) [Entitic vol] 72.9 fL 81-99 [facility] Erythrocyte distribution wid th ratioOrdered By: Cachorro Whitney on 12-28-2023 Erythrocyte distribution width (RBC) [Ratio] 19.0 % 11.6-14.6 [facility] Erythrocyte distribution wid th standard deviationOrdered By: Cachorro Whitney on 12-28-2023 Erythrocyte distribution width (RBC) [Entitic vol] 49.3 fL 35.1-43.9 [facility] Hematocrit Auto (Bld) [Volum e fraction]Ordered By: Cachorro Whitney on 12-28-2023 Hematocrit (Bld) [Volume fraction] 34.1 % 37-47 [facility] Immature granulocytes/100 WB C Auto (Bld)Ordered By: Cachorro Whitney on 12-28-2023 Immature granulocytes/100 WBC (Bld) 0.200 % 0.0-0.9 [facility] Comment on above: IG% - Immature Granu locytes (promyelocytes, myelocytes and metamyelocytes) > 1% indicates that a LEFT SHIFT is Present. Laboratory - Chemistry and C hemistry - challengeOrdered By: Cachorro Whitney on 12-28-2023 Albumin/Globulin [Mass ratio] 1.2 {ratio} 0.9-2.4 [facility] ALP [Catalytic activity/Vol] 57 U/L 45-117 [facility] ALT [Catalytic activity/Vol] 20 U/L 13-56 [facility] Cholesterol in HDL [Mass/Vol] 84 mg/dL >40 [facility] Comment on above: The drugs N-Acetylcy steine and Metamizole may falsely depress this assay. Reference Range HDL <40 mg/dL Low HDL Cholesterol HDL >or= 60 mg/dL High HDL Cholesterol Cholesterol in LDL [Mass/Vol] 212 mg/dL 0-130 [facility] CO2 [Moles/Vol] 27.0 mmol/L 21.0-32.0 [facility] Globulin (S) [Mass/Vol] 3.3 g/dL 2.2-4.2 [facility] Urea nitrogen/Creatinine [Mass ratio] 11.5 mg/mg 10-20 [facility] - Hematology and Cell countsOrdered By: Cachorro Whitney on 12-28-2023 MCH (RBC) [Entitic mass] 21.6 pg 27.0-32.0 [facility] MCHC (RBC) [Mass/Vol] 29.6 g/dL 32-36 [facility] Nucleated RBC/100 WBC (Bld) [Ratio] 0 % 0-5 [facility] Platelet mean volume (Bld) [Entitic vol] 10.1 fL 6.2-12.0 [facility] Platelets (Bld) [#/Vol] 264 10*3/uL 150-450 [facility] No Panel InformationOrdered By: Cachorro Whitney on 12-28-2023 Estimated GFR (MDRD) Amer 122 mL/min >60 [facility] Comment on above: GFR Calc Estimated GFR (MDRD) Non-Af Amer 101 mL/min >60 [facility] Comment on above: Non- GFR Calc Free Triiodothyronine (T3) pg/dL 2.6 pg/mL 2.18-3.98 [facility] VLDL Cholesterol 23 mg/dL 5-40 [facility] RBC Auto (Bld) [#/Vol]Ordere d By: Cachorro Whitney on 12-28-2023 RBC (Bld) [#/Vol] 4.68 10*6/uL 4.2-5.4 [facility] Serum or plasma calcium arya urement (mass/volume)Ordered By: Cachorro Whitney on 12-28-2023 Calcium [Mass/Vol] 9.1 mg/dL 8.5-10.1 [facility] Serum or plasma creatinine m easurement (mass/volume)Ordered By: Cachorro Whitney on 12-28-2023 Creatinine [Mass/Vol] 0.61 mg/dL 0.55-1.02 [facility] Comment on above: The validity of the calculated GFR & GFRAA in patients over 70 years has not been determined. Clinical correlation is essential. Serum or plasma thyroid stim ulating hormone (TSH) measurement (units/volume)Ordered By: Cachorro Whitney on 12-28-2023 TSH Qn 2.33 uIU/mL 0.358-3.74 [facility] Serum or plasma urea nitroge n measurement (mass/volume)Ordered By: Cachorro Whitney on 12-28-2023 Urea nitrogen [Mass/Vol] 7 mg/dL 7-18 [facility] Thin prep Papanicolaou smear with manual screeningOrdered By: Cachorro Whitney on 12-28-2023 Thin prep Papanicolaou smear with manual screening 3.9 g/dL 3.2-5.0 [facility] Thin prep Papanicolaou smear with manual screening 16 U/L 15-37 [facility] Thin prep Papanicolaou smear with manual screening 6 5-15 [facility] Thin prep Papanicolaou smear with manual screening 1.20 ng/dL 0.76-1.46 [facility] Basophil percentageOrdered B y: Cachorro Whitney on 06-26-2023 Chloride [Moles/Vol] 105 mmol/L 98-107 [facility] Cholesterol [Mass/Vol] 211 mg/dL <200 [facility] Comment on above: <200 mg/dL Desirable 200-240 mg/dL Borderline >240 mg/dL High Risk Glucose [Mass/Vol] 144 mg/dL 74-106 [facility] Comment on above: Fasting Glucose resu lt greater than or equal to 126 mg/dL suggests DIABETES MELLITUS per A.D.A. criteria. Potassium [Moles/Vol] 3.9 mmol/L 3.5-5.1 [facility] Sodium [Moles/Vol] 138 mmol/L 136-145 [facility] Triglyceride [Mass/Vol] 86 mg/dL <199 [facility] Comment on above: The drugs N-Acetylcy steine and Metamizole may falsely depress this assay.Serum Triglycerides Reference Interval Normal <150 mg/dL Borderline high 150 - 199 mg/dL High 200 - 499 mg/dL Very High > or = 500 mg/dL Laboratory - Chemistry and C hemistry - challengeOrdered By: Cachorro Whitney on 06-26-2023 CO2 [Moles/Vol] 27.0 mmol/L 21.0-32.0 [facility] Free T4 [Mass/Vol] 1.17 ng/dL 0.76-1.46 [facility] Urea nitrogen/Creatinine [Mass ratio] 19.1 mg/mg 10-20 [facility] No Panel InformationOrdered By: Cachorro Whitney on 06-26-2023 Estimated GFR (MDRD) Amer 107 mL/min >60 [facility] Comment on above: GFR Calc Estimated GFR (MDRD) Non-Af Amer 89 mL/min >60 [facility] Comment on above: Non- GFR Calc Free Triiodothyronine (T3) pg/dL 2.5 pg/mL 2.18-3.98 [facility] Thyroid Stimulating Hormone (TSH) 1.74 uIU/mL 0.358-3.74 [facility] Serum or plasma calcium arya urement (mass/volume)Ordered By: Cachorro Whitney on 06-26-2023 Calcium [Mass/Vol] 9.2 mg/dL 8.5-10.1 [facility] Serum or plasma cholesterol in HDL measurement (mass/volume)Ordered By: Cachorro Whitney on 06-26-2023 Cholesterol in HDL [Mass/Vol] 72 mg/dL >40 [facility] Comment on above: The drugs N-Acetylcy steine and Metamizole may falsely depress this assay. Reference Range HDL <40 mg/dL Low HDL Cholesterol HDL >or= 60 mg/dL High HDL Cholesterol Serum or plasma cholesterol in VLDL measurement (mass/volume)Ordered By: Cachorro Whitney on 06-26-2023 Cholesterol in VLDL [Mass/Vol] 17 mg/dL 5-40 [facility] Serum or plasma creatinine m easurement (mass/volume)Ordered By: Cachorro Whitney on 06-26-2023 Creatinine [Mass/Vol] 0.68 mg/dL 0.55-1.02 [facility] Comment on above: The validity of the calculated GFR & GFRAA in patients over 70 years has not been determined. Clinical correlation is essential. Serum or plasma low density lipoprotein (LDL) cholesterol measurement (mass/volume)Ordered By: Cachorro Whitney on 06-26-2023 Cholesterol in LDL [Mass/Vol] 122 mg/dL 0-130 [facility] Serum or plasma urea nitroge n measurement (mass/volume)Ordered By: Cachorro Whitney on 06-26-2023 Urea nitrogen [Mass/Vol] 13 mg/dL 7-18 [facility] Thin prep Papanicolaou smear with manual screeningOrdered By: Cachorro Whitney on 06-26-2023 Thin prep Papanicolaou smear with manual screening 6 5-15 [facility] Basophil percentageon 2021 Chloride [Moles/Vol] 106 mmol/L 98-[address] [facility] Work Phone: Cholesterol [Mass/Vol] 219 mg/dL <200 [facility] Work Phone: Comment on above: <200 mg/dL Desirable 200-240 mg/dL Borderline >240 mg/dL High Risk Glucose [Mass/Vol] 116 mg/dL 74-106 [facility] Work Phone: Comment on above: Fasting Glucose resu lt from 100 to 125 mg/dL suggests IMPAIRED HOMEOSTASIS per A.D.A. criteria. Potassium [Moles/Vol] 3.9 mmol/L 3.5-5.1 [facility] Work Phone: Sodium [Moles/Vol] 139 mmol/L 136-145 [facility] Work Phone: Triglyceride [Mass/Vol] 98 mg/dL <199 [facility] Work Phone: Comment on above: The drugs N-Acetylcy steine and Metamizole may falsely depress this assay.Serum Triglycerides Reference Interval Normal <150 mg/dL Borderline high 150 - 199 mg/dL High 200 - 499 mg/dL Very High > or = 500 mg/dL Laboratory - Chemistry and C hemistry - challengeon 06-25-2022 CO2 [Moles/Vol] 28.0 mmol/L 21.0-32.0 [facility] Work Phone: Free T4 [Mass/Vol] 1.04 ng/dL 0.76-1.46 [facility] Work Phone: Urea nitrogen/Creatinine [Mass ratio] 18.8 mg/mg 10-20 [facility] Work Phone: No Panel Informationon 06-25 Estimated GFR (MDRD) Amer 116 mL/min >60 [facility] Work Phone: Comment on above: GFR Calc Estimated GFR (MDRD) Non-Af Amer 96 mL/min >60 [facility] Work Phone: Comment on above: Non- GFR Calc Free Triiodothyronine (T3) pg/dL 2.5 pg/mL 2.18-3.98 [facility] Work Phone: Thyroid Stimulating Hormone (TSH) 1.75 uIU/mL 0.358-3.74 [facility] Work Phone: Urine Microalbumin/Creatinin e Ratio 26.3 mg/g CRE <30 [facility] Work Phone: Serum or plasma calcium arya urement (mass/volume)on 06-25-2022 Calcium [Mass/Vol] 8.8 mg/dL 8.5-10.1 [facility] Work Phone: Serum or plasma cholesterol in HDL measurement (mass/volume)on 06-25-2022 Cholesterol in HDL [Mass/Vol] 78 mg/dL >40 [facility] Work Phone: Comment on above: The drugs N-Acetylcy steine and Metamizole may falsely depress this assay. Reference Range HDL <40 mg/dL Low HDL Cholesterol HDL >or= 60 mg/dL High HDL Cholesterol Serum or plasma cholesterol in VLDL measurement (mass/volume)on 06-25-2022 Cholesterol in VLDL [Mass/Vol] 20 mg/dL 5-40 [facility] Work Phone: Serum or plasma creatinine m easurement (mass/volume)on 06-25-2022 Creatinine [Mass/Vol] 0.64 mg/dL 0.55-1.02 [facility] Work Phone: Comment on above: The validity of the calculated GFR & GFRAA in patients over 70 years has not been determined. Clinical correlation is essential. Serum or plasma low density lipoprotein (LDL) cholesterol measurement (mass/volume)on 06-25-2022 Cholesterol in LDL [Mass/Vol] 121 mg/dL 0-130 [facility] Work Phone: Serum or plasma urea nitroge n measurement (mass/volume)on 06-25-2022 Urea nitrogen [Mass/Vol] 12 mg/dL 7-18 [facility] Work Phone: Thin prep Papanicolaou smear with manual screeningon 06-25-2022 Thin prep Papanicolaou smear with manual screening 5 5-15 [facility] Work Phone: Thin prep Papanicolaou smear with manual screening 8.5 mg/L NO RANGE EST. [facility] Work Phone: Urine creatinine measurement (mass/volume)on 06-25-2022 Creatinine (U) [Mass/Vol] 32.40 mg/dL NO RANGE EST. [facility] Work Phone: Basophil percentageon 2021 Basophil percentage >100 SEEN /hpf W [facility] Work Phone: Chloride [Moles/Vol] 107 mmol/L 98-107 [facility] Work Phone: Cholesterol [Mass/Vol] 210 mg/dL <200 [facility] Work Phone: Comment on above: <200 mg/dL Desirable 200-240 mg/dL Borderline >240 mg/dL High Risk Glucose [Mass/Vol] 151 mg/dL 74-106 [facility] Work Phone: Comment on above: Fasting Glucose resu lt greater than or equal to 126 mg/dL suggests DIABETES MELLITUS per A.D.A. criteria. Potassium [Moles/Vol] 4.0 mmol/L 3.5-5.1 [facility] Work Phone: Sodium [Moles/Vol] 140 mmol/L 136-145 [facility] Work Phone: Triglyceride [Mass/Vol] 134 mg/dL [facility] Work Phone: Comment on above: The drugs N-Acetylcy steine and Metamizole may falsely depress this assay.Serum Triglycerides Reference Interval Normal <150 mg/dL Borderline high 150 - 199 mg/dL High 200 - 499 mg/dL Very High > or = 500 mg/dL Bilirubin Test strip Ql (U)o n 12-23-2021 Bilirubin Ql (U) Negative Negative [facility] Work Phone: Ketones Test strip Ql (U)on 12-23-2021 Ketones Ql (U) Negative Negative [facility] Work Phone: Laboratory - Chemistry and C hemistry - challengeon 12-23-2021 CO2 [Moles/Vol] 27.0 mmol/L 21.0-32.0 [facility] Work Phone: Free T4 [Mass/Vol] 1.10 ng/dL 0.76-1.46 [facility] Work Phone: Urea nitrogen/Creatinine [Mass ratio] 14.8 mg/mg 10-20 [facility] Work Phone: Mucus LM Ql (Urine sed)on Mucus Ql (Urine sed) 0 SEEN /hpf [facility] Work Phone: Nitrite Test strip Ql (U)on 12-23-2021 Nitrite Ql (U) Positive Negative [facility] Work Phone: No Panel Informationon 12-23 Estimated GFR (MDRD) Amer 122 mL/min >60 [facility] Work Phone: Comment on above: GFR Calc Estimated GFR (MDRD) Non-Af Amer 101 mL/min >60 [facility] Work Phone: Comment on above: Non- GFR Calc Free Triiodothyronine (T3) pg/dL 2.5 pg/mL 2.18-3.98 [facility] Work Phone: Thyroid Stimulating Hormone (TSH) 1.21 uIU/mL 0.358-3.74 [facility] Work Phone: Protein Test strip Ql (U)on 12-23-2021 Protein Ql (U) 15 mg/dl Negative [facility] Work Phone: Serum or plasma calcium arya urement (mass/volume)on 12-23-2021 Calcium [Mass/Vol] 8.7 mg/dL 8.5-10.1 [facility] Work Phone: Serum or plasma cholesterol in HDL measurement (mass/volume)on 12-23-2021 Cholesterol in HDL [Mass/Vol] 75 mg/dL [facility] Work Phone: Comment on above: The drugs N-Acetylcy steine and Metamizole may falsely depress this assay. Reference Range HDL <40 mg/dL Low HDL Cholesterol HDL >or= 60 mg/dL High HDL Cholesterol Serum or plasma cholesterol in VLDL measurement (mass/volume)on 12-23-2021 Cholesterol in VLDL [Mass/Vol] 27 mg/dL 5-40 [facility] Work Phone: Serum or plasma creatinine m easurement (mass/volume)on 12-23-2021 Creatinine [Mass/Vol] 0.61 mg/dL 0.55-1.02 [facility] Work Phone: Comment on above: The validity of the calculated GFR & GFRAA in patients over 70 years has not been determined. Clinical correlation is essential. Serum or plasma low density lipoprotein (LDL) cholesterol measurement (mass/volume)on 12-23-2021 Cholesterol in LDL [Mass/Vol] 108 mg/dL 0-130 [facility] Work Phone: Serum or plasma urea nitroge n measurement (mass/volume)on 12-23-2021 Urea nitrogen [Mass/Vol] 9 mg/dL 7-18 [facility] Work Phone: Squamous epithelial cells de tection in urine sediment by light microscopyon 12-23-2021 Epithelial cells.squamous LM Ql (Urine sed) 5-10 SEEN /hpf [facility] Work Phone: Thin prep Papanicolaou smear with manual screeningon 12-23-2021 Thin prep Papanicolaou smear with manual screening 6 5-15 [facility] Work Phone: Urine blood detectionon - RBC Ql (U) 25 /ul Negative [facility] Work Phone: RBC Ql (U) 0 SEEN /hpf [facility] Work Phone: Urine clarityon 12-23-2021 Clarity (U) Sl. Cloudy Clear [facility] Work Phone: Urine color determinationon 12-23-2021 Color (U) Yellow Yellow [facility] Work Phone: Urine glucose detectionon Glucose Ql (U) Normal mg/dl Normal [facility] Work Phone: Urine leukocyte esterase det ection by dipstickon 12-23-2021 Leukocyte esterase Test strip Ql (U) 500 /ul Negative [facility] Work Phone: Urine pHon 12-23-2021 pH (U) 6.0 [pH] [facility] Work Phone: Urine sediment bacteria coun t by microscopy (number/high power field)on 12-23-2021 Bacteria LM.HPF (Urine sed) [#/Area] 2 /[HPF] None Seen [facility] Work Phone: Urine specific gravity measu rementon 12-23-2021 Specific gravity (U) [Rel density] 1.015 [facility] Work Phone: Urobilinogen Auto test strip Ql (U)on 12-23-2021 Urobilinogen Ql (U) Normal mg/dl Normal [facility] Work Phone: Vital Signs Date Time Vital Sign Value Performing Clinician Faci lity 04-10-2025 07:55-0400 Body height 165.[address] Cachorro Whitney MD Work Phone: [facility] 04-10-2025 07:55-0400 Body mass index (BMI) [Ratio] 26.9 kg/m2 Dr. Cachorro Whitney MD Work Phone: [facility] 04-10-2025 07:55-0400 Body weight 73.[address] Cachorro Whitney MD Work Phone: [facility] 04-10-2025 07:55-0400 Diastolic blood pressure 76 mm[Hg] Dr. Cachorro Whitney MD Work Phone: [facility] 04-10-2025 07:55-0400 Respiratory rate 16 /min Dr. Cachorro Whitney MD Work Phone: [facility] 04-10-2025 07:55-0400 Systolic blood pressure 131 mm[Hg] Dr. Cachorro Whitney MD Work Phone: [facility] 02-07-2025 10:05-0400 Respiratory rate 16 /min Dr. Cachorro Whitney MD Work Phone: [facility] 02-07-2025 10:05-0400 SaO2% (BldA) [Mass fraction] 97 % Dr. Cachorro Whitney MD Work Phone: 3([phone] [place] [address] 02-07-2025 10:04-0400 Body temperature 97.8 [degF] Dr. Cachorro Whitney MD Work Phone: 7([phone] [place] [address] 02-07-2025 10:04-0400 Diastolic blood pressure 54 mm[Hg] Dr. Cachorro Whitney MD Work Phone: 4(875)[phone] [place] [address] 02-07-2025 10:04-0400 Heart rate 77 /min Dr. Cachorro Whitney MD Work Phone: 6(740)[phone] [place] [address] 02-07-2025 10:04-0400 Systolic blood pressure 95 mm[Hg] Dr. Cachorro Whitney MD Work Phone: 1(494)398-046783 [place] [address] 02-07-2025 09:25-0400 Body temperature 97.8 [degF] Dr. Cachorro Whitney MD Work Phone: [facility] 02-07-2025 09:25-0400 Diastolic blood pressure 43 mm[Hg] Dr. Cachorro Whitney MD Work Phone: [facility] 02-07-2025 09:25-0400 Heart rate 76 /min Dr. Cachorro Whitney MD Work Phone: [facility] 02-07-2025 09:25-0400 Respiratory rate 18 /min Dr. Cachorro Whitney MD Work Phone: [facility] 02-07-2025 09:25-0400 SaO2% (BldA) [Mass fraction] 100 % Dr. Cachorro Whitney MD Work Phone: [facility] 02-07-2025 09:25-0400 Systolic blood pressure 113 mm[Hg] Dr. Cachorro Whitney MD Work Phone: [facility] 02-07-2025 07:30-0400 Body height 165.[address] Cachorro Whitney MD Work Phone: [facility] 02-07-2025 07:30-0400 Body mass index (BMI) [Ratio] 26 kg/m2 Dr. Cachorro Whitney MD Work Phone: [facility] 02-07-2025 07:30-0400 Body weight [address] Cachorro Whitney MD Work Phone: 3(262)[phone] [address] 01-09-2025 13:52-0400 Body height 162.[address] Cachorro Whitney MD Work Phone: 5([phone] [address] 01-09-2025 13:52-0400 Body mass index (BMI) [Ratio] 27.9 kg/m2 Dr. Cachorro Whitney MD Work Phone: 4([phone])[phone] [place] [address] 01-09-2025 13:52-0400 Body weight 73.[address] Cachorro Whitney MD Work Phone: [facility] 01-09-2025 13:52-0400 Diastolic blood pressure 75 mm[Hg] Dr. Cachorro Whitney MD Work Phone: [facility] 01-09-2025 13:52-0400 Heart rate 64 /min Dr. Cachorro Whitney MD Work Phone: [facility] 01-09-2025 13:52-0400 Respiratory rate 17 /min Dr. Cachorro Whitney MD Work Phone: [facility] 01-09-2025 13:52-0400 SaO2% (BldA) [Mass fraction] 97 % Dr. Cachorro Whitney MD Work Phone: [facility] 01-09-2025 13:52-0400 Systolic blood pressure 126 mm[Hg] Dr. Cachorro Whitney MD Work Phone: [facility] Encounters Encounter Date Encounter Type Care Provider Facility Start: 04-10-2025 End: 04-10-[address] Von Velez MD -[facility] Work Phone: Start: 04-10-2025 End: 04-10-[address] Cachorro Whitney MD Work Phone: -[facility] Start: 04-04-2025 End: 04-04-[address] Cachorro Whitney MD Work Phone: -[facility]patient [facility] Start: 04-04-2025 End: 04-04-[address] Cachorro Whitney MD -[facility] Work Phone: Start: 04-04-2025 End: 04-04-2025 ambulatory Cachorro Whitney Facility:[facility] Start: 03-04-2025 End: 03-04-[address] Cachorro Whitney MD Work Phone: -Cardiovascular Services Start: 03-04-2025 End: 03-04-[address] Cachorro Whitney MD -Cardiovascular Services Work Phone: Start: 03-03-2025 End: 03-04-2025 ambulatory Cachorro Whitney Facility:[facility] Start: 03-03-2025 Non-patient / Non-visit Dr. Agustin Morataya MD -[facility] Start: 02-23-2025 End: 02-23-[address] Cachorro Whitney MD Work Phone: -Laboratory [facility] Start: 02-23-2025 End: 02-23-[address] Cachorro Whitney MD -[facility] Start: 02-23-2025 End: 02-23-2025 ambulatory Cachorro Whitney Facility:[facility] Start: 02-07-2025 ambulatory Cachorro Whitney Facility:[facility] Start: 02-07-2025 Non-patient / Non-visit Dr. Von Velez MD -[facility] Start: 02-07-2025 End: 02-07-2025 Admission to same day surgery center Dr. Von Velez MD -Endoscopy Work Phone: Start: 02-07-2025 End: 02-07-[address] Cachorro Whitney MD Work Phone: [facility] Work Phone: Start: 01-09-2025 End: 01-09-[address] Von Velez MD -[facility] Work Phone: Start: 01-09-2025 End: 01-09-[address] Cachorro Whitney MD Work Phone: [facility] Work Phone: Start: 12-28-2024 End: 12-28-[address] Cachorro Whitney MD Work Phone: [facility] Work Phone: Start: 12-28-2024 End: 12-28-[address] Cachorro Whitney MD -[facility] Start: 12-28-2024 End: 12-28-2024 ambulatory Cachorro Whitney Facility:[facility] Start: 09-06-2024 End: 09-06-2024 Patient encounter procedure Candie Calderon NP-C -Laboratory, Specimen Work Phone: Start: 09-06-2024 End: 09-06-2024 ambulatory Cachorro Whitney Facility:[facility] Start: 07-01-2024 End: 07-01-2024 ambulatory Cachorro Whitney Facility:[facility] Start: 12-28-2023 End: 12-28-2023 ambulatory [facility] Work Phone: Start: 12-28-2023 End: 12-28-2023 Patient encounter procedure [facility] Start: 06-26-2023 End: 06-26-2023 ambulatory [facility] Work Phone: Start: 06-26-2023 End: 06-26-2023 Patient encounter procedure [facility] Start: 07-30-2022 End: 07-30-2022 ambulatory [facility] Work Phone: Start: 07-30-2022 End: 07-30-2022 Patient encounter procedure [facility] Start: 06-25-2022 End: 06-25-2022 ambulatory [facility] Work Phone: Start: 06-25-2022 End: 06-25-2022 Patient encounter procedure [facility] Start: 12-23-2021 End: 12-23-2021 Patient encounter procedure [facility] Start: 02-23-2019 End: 02-23-2019 Outside Orders Faustino Zimmer [place] Scheduling Comment on above: Right foot drop (Mariam ciara Dx) Procedures Date Procedure Procedure Detail Performing Clinician Start: 04-04-[address] Cachorro Whitney MD Work Phone: Start: 04-04-2025 Bilateral mammography Terry Whitney MD Work Phone: Start: 02-07-[address] Cachorro felipe MD Work Phone: Start: 09-06-[address] Cachorro Whitney MD Work Phone: Start: 07-30-2022 Screening mammography Plan of Treatment Date Care Activity Detail Author Start: 02-07-2025 Colonoscopy flx dx w/collj spec when pfrmd DIAGNOSTIC COLONOSCOPY [facility] Start: 02-07-2025 Esophagogastroduodenoscopy transoral diagnostic EGD DIAGNOSTIC BRUSH WASH [facility] Start: 02-07-2025 Patient discharge [facility] Start: 04-24-2019 Influenza vaccination INFLUENZA VACCINE (#1) [facility] Start: 2009 Pneumococcal vaccination PNEUMOCOCCAL VACCINE SERIES (1 of 2 - PCV13) [facility] Start: 1994 Colonoscopy COLON CANCER SCREENING DISCUSSION [facility] Start: 1994 Zoster vaccine hzv live for subcutaneous use ZOSTER (SHINGLES) VACCINE (1 of 2) [facility] Start: 1984 Fasting lipid profile LIPID SCREENING [facility] Start: 1984 Screening mammography MAMMOGRAM SCREENING DISCUSSION [facility] Start: 1965 Screening for malignant neoplasm of cervix PAP SMEAR DISCUSSION [facility] Start: 1963 Third diphtheria, tetanus and acellular pertussis (DTaP) vaccination TDAP (ADULT) [facility] Start: 1962 Tetanus vaccination TETANUS [facility] Start: 1944 Screening for osteoporosis DEXA SCAN DISCUSSION [facility] Colonoscopy [facility] Patient referral [facility] Work Phone: [facility] Payers Date Payer Category Payer Private Health Insurance [id number] 2024 Self-pay [id number] Medicare [id number] Unknown [id number] 2.16.8 [id number] Unknown [id number] 2.16.8 [id number] Unknown [id number] 2.16.8 [id number] Unknown [id number] 2.16.8 [id number] Unknown [id number] 2.16.8 [id number] Unknown [id number] 2.16.8 [id number] Unknown [id number] 2.16.8 [id number] Unknown [id number] 2.16.8 [id number] Unknown [id number] 2.16.8 [id number] Unknown [id number] 2.16.8 [id number] Unknown [id number] 2.16.8 [id number] Unknown [id number] 2.16.8 [id number] Unknown [id number] 2.16.8 [id number] Social History Date Type Detail Facility Tobacco smoking status NHIS Unknown if ever smoked [facility] Sex Assigned At Not on file [facility] Start: 07-27-2020 End: 07-27-2020 Tobacco smoking status NHIS Unknown if ever smoked [facility] Start: 11-25-2018 Non-smoker [facility] Start: 1945 Sex Assigned At Female [facility] Start: 07-27-2020 End: 02-03-2025 Tobacco smoking status NHIS Never smoked tobacco (finding) [facility] Not [facility] NEGATED: Highlighted row Not [facility] Goals Date Patient Goal Desired Activity /State Mental Status Date Assessment Result Facility 02-07-2025 Cognitive function Voice/Name;Touch/Mayoki ng [facility] Work Phone: Clinical Notes 01-09-2025 to 04-10-2025 Note Date & Type Note Facility 04-10-2025 Progress note [facility] 04-10-2025 Progress note Note Date/Time April 10, 2025 8:15am [facility] [address] [place] [address]. [address] [place] [address] OFFICE VISIT Date of Service: 04/10/25 MR#: [id number] Acct: [id number] Name: KARIE PLASCENCIA Rep #: [id number] : 1945 Provider: Dr. Maggi Velez MD Age/Sex: 80/F Location: 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 Is patient in pain?: No Allergies No Known Allergies Allergy (Verified 04/10/25 07:56) Medications ?Medication ?Instructions ?Recorded ?Confirmed ?Type calcium carbonate (Calcium 500) 500 mg PO DAILY 04/10/25 History folic acid 0.8 mg capsule 800 mcg PO QDAY 10/13/17 History glimepiride 1 mg tablet 0.5 mg PO DAILY 10/13/17 History levothyroxine 75 mcg capsule 75 mcg PO DAILY 10/13/17 04/10/25 History metformin 1,000 mg tablet 1,000 mg PO BID 10/13/17 History multivitamin 1 tab PO QAM 10/13/17 History magnesium oxide 400 mg (241.3 mg 400 mg PO DAILY 10/1604/10/25 History magnesium) tablet aspirin 81 mg tablet,delayed 81 mg PO DAILY heart heal th 10/24/19 04/10/25 History release ferrous sulfate 325 mg (65 mg 325 mg PO TID 01/09/25 0 04/10/25 History iron) tablet (Feosol) Have you fallen in the past year?: No PFSH Medical History Wears partial dentures Wears glasses Post-menopausal Non-smoker History of echocardiogram History of stress test History of irregular heartbeat Foot drop, right Anemia Carpal tunnel syndrome Thyroid disease Fatigue Dysuria Hyperlipemia Diabetes Surgical History History of cardiac catheterization Hx of colonoscopy History of esophagogastroduodenoscopy (EGD) History of carpal tunnel release of both wrists H/O gastric bypass Family History Mother Uterine cancer Sister Heart disease Thyroid disorder Social History Smoking Status: Never smoker second hand exposure: No alcohol intake: never substance use type: does not use caffeine: No what type of physical activity do you participate in: walking frequency: 3-4 times per week seatbelt use: always HPI HPI HPI: Patient is an 80-year-old female here with a left breast mass. She noted this about a month ago. She says over the last few days has been drinking. It is not painful. 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 She alwaysgets pricks and pokes on her arms. ROS General General: Yes weight change and [...] normal Mental Status: mental status grossly normal Office Procedures Biopsy Provider Documentation The patient's left upper outer quadrant was imaged and the mass was localized. An area lateral to this was prepped and draped and injected with local anesthetic. A small skin brandon was made with a scalpel. A 14-gauge biopsy needle was placed into the mass under direct guidance several times. Next a clip was placed into the mass. Steri-Strip and bandage were placed over the incision. Patient tolerated the procedure well. Alert Jose Yes Biopsy Lymphnode Biopsy: 89452 Lymphnode Procedure Time Out Time Out Informed consent given: Yes Consent signed: Yes Time out checklist: patient, procedure, site marked/identified, positioning of patient, supplies available, allergies confirmed and team agrees on procedure Time out staff in room: Yes Time out verified: Yes Time out date: 04/10/25 Time out time: 08:04 Assessment and Plan Assessment and Plan (1) Left breast mass: Status: Acute Plan: The patient had ultrasound of left breast mass. This was called a possible intramammary lymph node and recommended for biopsy. 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 It is possiblethat this is reactive from that. I performed a biopsy of the lymph node in the office today. I will call her with results next week. Patient tolerated the procedure well. Von Velez MD Pager: [facility] [address] [place] [address], [address] [place] [address] Office: Orders: Orders Biopsy Today N63.20 - Unspecified lump in the left breast, unspecified quadrant Coding Level of Care Code Off vis,est,level 3 Diagnoses Left breast mass N63.20 CPT Codes Biopsy - Lymphnode Biopsy: 72593 Lymphnode (22425) Clinical Quality Measures Falls Risk Screening/Assistive Devices Have you fallen in the past year?: No 08/18/25 0815 <Electronically signed by Von lopez MD> Date _ Von Velez MD Cosigner Signature: Date (if applicable) CC: Dr. Cachorro Whitney MD ~ [facility] Work Phone: 1(673) 285-380708-12-2025 Radiology Diagnostic study note [facility] Imaging Services [address] [place] [address] Breast Limited Unilateral MR#: [id number] Acct: [id number] Name: KARIE PLASCENCIA Rep #: [id number] : 1945 F 80 From: Annie William MD PCP: Dr. Cachorro Whitney MD Status: [facility] Study:Breast Limited Unilateral Date of Exam: 04/04/25 Exam# [id number] Ordering Dr: Cachorro Whitney MD EXAM: DIAG MAMM W/CAD, BILAT; BREAST LIMITED UNILATERAL; BILAT BRST REY STAND ALONE 04/04/2025 CLINICAL HISTORY: F, Age 80 y/o , AXILLARY MASS; LT AXILLA ABN MAMMO, PALP LUMP; LUMP TECHNIQUE: DIAG MAMM W/CAD, BILAT; BREAST LIMITED UNILATERAL; BILAT BRST REY STAND ALONE. COMPARISON: Prior exam(s) dated 03/18/2024 07/30/2022, 05/01/2020. FINDINGS: MAMMOGRAM: TISSUE DENSITY: There are scattered areas of fibroglandular density. Left breast: The patient presents with palpable concern in the upper-outer left breast. There is a triangle skinmarker indicating the area of palpable concern in the upper-outer left breast, underlying the skin marker is a an enlarged intramammary lymph node. Right breast: There are no suspicious masses, grouped calcifications or architectural distortions in the right breast. ULTRASOUND: Ultrasound performed of the area of patient's palpable concern in the left breast at 2 o'clock 9 cmfrom the nipple there is an abnormally enlarged intramammary lymph node with near complete hilar effacement and diffuse cortical thickening, measuring 1.4 x 1.3 x 0.9 cm and cortical thickness of 0.3 cm. There are 2 architecturally normal-appearing left axillary lymph nodes. US/Breast Limited Unilateral IMPRESSION: Abnormal intramammary lymph node in the left breast at 2 o'clock 9 cm from the nipple. Recommend tissue sampling with ultrasound-guided core needle biopsy. OVERALL FINAL ASSESSMENT BI-RADS 4: SUSPICIOUS RECOMMENDATION: Biopsy Recommended A letter with findings and recommendations will be mailed to the patient. Reading Location: [facility] CC: Dr. Cachorro Whitney MD ~ Finishing Machine Operator: Signed [facility]06-17-2025 Consult note Author Jose Raul Theodore [facility] Note Date/Time February 07, 2025 7:42 am [facility] Medical Records Department [address] [place] [address] Pre-Anesthesia Evaluation 02/07/25 0737 MR#: [id number] Acct: [id number] Name: KARIE PLASCENCIA Rep #:[id number] : 1945 79 From: Jose Raul Theodore MD PCP: Dr. Cachorro Whitney MD Status:REG S DC Y Race: C Location: [place] [address] ASA Classification* ASA Classification ASA Classification: 2 [...] Procedure(s): COLONOSCOPY/EGD Anesthesia History Anesthesia History - counter hop: Anesthesia History - counter hop Hx Hospitalization No 02/03/25 09:14 Any Problems [...] take am of surgery PONV PONV - counter hop: PONV - counter hop Female Yes 02/03/25 09:14 HX of Motion [...] 02/07/25 07:30 Respiratory Assessment Respiratory Assessment - counter hop: Respiratory Tract Infection Hx - counter hop Hx Respiratory Tract Infection No 02/03/25 09:14 STOP Sleep Apnea STOP Sleep Apnea - counter hop: STOP Sleep Apnea - counter hop Hx Hypertension No: hypotension 02/03/25 09:14 Hx [...] Tobacco Use History Tobacco Use History - counter hop: Tobacco Use History - counter hop Tobacco Use Smoking Status Never smoker 02/03/25 09:14 Hx Tobacco Use No 02/03/25 09:14 Years Smoking Packs Smoked per Day Smoking Cessation Date was within the last 15 years Hx Smoking Cessation Date Hx Smoking Cessation Counseling Hematologic Medial History Hematologic Hx - counter hop: 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 Procedure Code(s): --- Professional --- 07304, Colonoscopy, flexible; diagnostic, including collection of specimen(s) by brushing or washing, when performed (separate procedure) Diagnosis Code(s): --- Professional --- D50.9, Iron deficiency anemia, unspecified CPT copyright 2021 [employer]. All rights reserved. The codes documented in this report are preliminary and upon senior clinical study manager review may be revised to meet current compliance requirements. Von Velez MD 02/07/2025 8:59:20 AM This report has been signed electronically. Number of Addenda: 0 Note Initiated On: 02/07/2025 8:32 AM 02/07/25858 Date _ Von Velez MD Cosigner Signature: Date (if indicated) CC: Dr. Von Velez MD; Dr. Cachorro Whitney MD ~ Date Dictated: 02/07/25831 Date Transcribed: Finishing Machine Operator: ALTAGRACIA Signed [facility]06-17-2025 Procedure note [facility] Medical Records Department [address] [place] [address] Operative Report - CC Letter MR#: [id number] Acct: [id number] Name: KARIE PLASCENCIA YANG Rep #:[id number] : 1945 79 From: Von bhandari MD PCP: Dr. Cachorro Whitney MD Status:REG S DC 02/07/2025 Cachorro Whitney MD [address] [place] [id number] Re : Colonoscopy procedure for Karie Plascencia [...] AM This report has been signed electronically. 02/07/2559 Date _ Von Velez MD Cosigner Signature: Date (if indicated) CC: Dr. Von Velez MD; Dr. Cachorro Whitney MD ~ Date Dictated: 02/07/25 0832 Date Transcribed: Finishing Machine Operator: AC Signed [facility]06-17-2025 Procedure note [facility] Medical Records Department [facility] [place] [id number] EGD Report MR#: [id number] Acct: [id number] Name: KARIE PLASCENCIA Rep #:[id number] : [...] present medications. Procedure Code(s): --- Professional --- 37377, Esophagogastroduodenoscopy, flexible, transoral; diagnostic, including collection of specimen(s) by brushing or washing, when performed (separate procedure) Diagnosis Code(s): --- Professional --- D50.9, Iron deficiency anemia, unspecified CPT copyright 2021 [employer]. All rights reserved. The codes documented in this report are preliminary and upon senior clinical study manager review may be revised to meet current compliance requirements. Von Velez MD 02/07/2025 8:56:06 AM This report has been signed electronically. Number of Addenda: 0 Note Initiated On: 02/07/2025 8:23 AM 02/07/25855 Date _ Von Velez MD Cosigner Signature: Date (if indicated) CC: Dr. Von Velez MD; Dr. Cachorro Whitney MD ~ Date Dictated: 02/07/25822 Date Transcribed: Finishing Machine Operator: AC Signed [facility]06-17-2025 Procedure note [facility] Medical Records Department [address] [place] [address] Operative Report - CC Letter MR#: [id number] Acct: [id number] Name: KARIE PLASCENCIA Rep #:[id number] : 1945 79 From: Von bhandari MD PCP: Dr. Cachorro Whitney MD Status:REG S DC 02/07/2025 Cachorro Whitney MD [address] [place] [address] Re : Upper GI endoscopy procedure for Kraie Plascencia Dear Dr. Whitney This procedure was [...] been signed electronically. 02/07/25855 Date _ Von Edmond Signature: Date (if indicated) CC: Dr. Von Velez MD; Dr. Cachorro Whitney MD ~ Date Dictated: 02/07/25822 Date Transcribed: Finishing Machine Operator: ALTAGRACIA Signed [facility]06-17-2025 History and physical note [facility] Medical Records Department [address] [place] [address] History & Physical Exam 02/07/25814 MR#: [id number] Acct: [id number] Name: KARIE PLASCENCIA Rep #:[id number] : 1945 79 From: Von bhandari MD PCP: Dr. Cachorro Whitney MD Status:REG S DC Location: [place] [address] History and Physical Date of Admission: 02/07/25 [...] General: cooperative Orientation: alert and oriented x3 HENID Head: normal to inspection Neck Neck: normal [...] proceed with procedure. Von Velez MD Pager: [facility] [address] [place] [address], [address] [place] [address] Office: I have examined the patient and the H&P has been reviewed. There are no clinicalchanges since date of exam. 02/07/25814 Cosign Signature (if applicable): CC: Dr. Von Velez MD; Dr. Cachorro Whitney MD~ Signed [facility]06-17-2025 [facility] Medical Records Department [address] [place] [address] History Physical Exam 02/07/25814 MR#: [id number] Acct: [id number] Name: KARIE PLASCENCIA Rep #: [id number] : 1945 79 From: Von Velez MD PCP: Dr. Cachorro Whitney MD Status:[facility] Location: [place] [address] History and Physical Date of Admission: 02/07/25 [...] ROM Chest Chest pal (more content not included)...[facility]2025 Consult note [facility] Medical Records Department [address] [place] [address] Pre-Anesthesia Evaluation 02/07/25 0737 MR#: [id number] Acct: [id number] Name: KARIE PLASCENCIA Rep #:[id number] : 1945 79 From: Jose Raul Theodore MD PCP: Dr. Cachorro Whitney MD Status:REG S DC Y Race: C Location: [place] [address] ASA Classification* ASA Classification ASA Classification: 2 [...] Procedure(s): COLONOSCOPY/EGD Anesthesia History Anesthesia History - counter hop: Anesthesia History - counter hop Hx Hospitalization No 02/03/25 09:14 Any Problems [...] take am of surgery PONV PONV - counter hop: PONV - counter hop Female Yes 02/03/25 09:14 HX of Motion [...] 02/07/25 07:30 Respiratory Assessment Respiratory Assessment - counter hop: Respiratory Tract Infection Hx - counter hop Hx Respiratory Tract Infection No 02/03/25 09:14 STOP Sleep Apnea STOP Sleep Apnea - counter hop: STOP Sleep Apnea - counter hop Hx Hypertension No: hypotension 02/03/25 09:14 Hx [...] Tobacco Use History Tobacco Use History - counter hop: Tobacco Use History - counter hop Tobacco Use Smoking Status Never smoker 02/03/25 09:14 Hx Tobacco Use No 02/03/25 09:14 Years Smoking Packs Smoked per Day Smoking Cessation Date was within the last 15 years Hx Smoking Cessation Date Hx Smoking Cessation Counseling Hematologic Medial History Hematologic Hx - counter hop: 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 Hx of Blood Transfusion Yes 02/03/25 09:14 [...] confused, unrespo /Reproduction History /Reproductive History - counter hop: /Reproductive Hx- counter hop Hx Now No 02/03/25 09:14 Gestational Age [...] rhythm, no murmurs and diaphoretic 02/07/25 0742 MD> Date _ Jose Raul Rayignjan Signature: Date CC: ~ Signed [facility]05-19-2025 Evaluation note* Diagnosis Onset Date Resolution Status Admit Date Anemia acute January 09, 2025 1:32pm H/O gastric bypass acute January 092024 1:32pm [facility] Work Phone: 1(978) 346-952205-19-2025 Evaluation note* Diagnosis Onset Date Resolution Status Admit Date Anemia acute January 09, 2025 1:32pm H/O gastric bypass acute January 092024 1:32pm Left breast mass acute March 242024 7:46am [facility] Work Phone: 1(991) 658-180005-19-[address] [facility] [address] [place] [address] OFFICE VISIT Date of Service: 01/09/25 MR#: [id number] Acct: [id number] Name: KARIE PLASCENCIA Rep #: [id number] : 1945 Provider: Dr. Maggi Velez MD Age/Sex: 79/F Location: [facility] Status: Signed Intake Vital Signs 01/07/21 [...] General: cooperative Orientation: alert and oriented x3 HENID Head: normal to inspection Neck Neck: normal [...] proceed with procedure. Von Velez MD Pager: [facility] [address] [place] [address], [address] [place] [address] Office: Coding Level of Care Code Off vis,est,level 3 Diagnoses H/O gastric bypass Z98.84 Iron deficiency anemia, unspecified iron deficiency anemia type D50.9 Anemia type: iron deficiency Iron deficiency anemia type: unspecified iron deficiency Clinical Quality Measures Falls Risk Screening/Assistive Devices Have you fallen in the past year?: No 01/09/25 1400 john PLAACIOS> Date _ Von Velez MD Cosigner Signature: Date (if applicable) CC: Dr. Cachorro Whitney MD ~ [facility]05-19-2025 Progress note Author Von Velez [facility] Note Date/Time January 09, 2025 2:00p m [facility] [address] [place] [address] OFFICE VISIT Date of Service: 01/09/25 MR#: [id number] Acct: [id number] Name: KARIE PLASCENCIA Rep #: [id number] : 1945 Provider: Dr. Maggi Velez MD Age/Sex: 79/F Location: [facility] Status: Signed Intake Vital Signs 01/07/21 [...] you fallen in the past year?: No [facility] Medical History Foot drop, right Anemia Carpal [...] proceed with procedure. Von Velez MD Pager: [facility] [address] [place] [address], [address] [place] [address] Office: Coding Level of Care Code Off [...] applicable) CC: Dr. Cachorro Whitney MD ~ [facility] Work Phone: Evaluation noteNo assessment information available [facility] Work Phone: Evaluation note* Diagnosis Onset Date Resolution Status Admit Date Anemia acute January 09, 2025 1:32pm H/O gastric bypass acute January 092024 1:32pm [facility] Work Phone: History and physical note Author Von Velez [facility] Note Date/Time February 07, 2025 8:15 am [facility] Medical Records Department [address] [place] [address] History & Physical Exam 02/07/2515 MR#: [id number] Acct: [id number] Name: KARIE PLASCENCIA Rep #:[id number] : 1945 79 From: Von bhandari MD PCP: Dr. Cachorro Whitney MD Status:REG S NC Location: [place] [address] History and Physical Date of Admission: 02/07/25 [...] proceed with procedure. Von Velez MD Pager: [facility] [address] [place] [address], [address] [place] [address] Office: I have examined the patient and the H&P has been reviewed. There are no clinicalchanges since date of exam. 02/07/25 0815 <Electronically signed by Von Velez MD> Cosigner Signature (if applicable): CC: Dr. Von Velez MD; Dr. Cachorro Whitney MD~ Signed [facility] Work Phone: Reason for referral (narrative)No reason for referral information [facility] Work Phone: Reason for Referral Status Reason Specialty Diagnoses / Procedures Referred By Contact Referred To Contact New Request Neurology Diagnoses Right foot drop Sidney Ott MD [address] [place] [address] Assessments Diagnosis Right foot drop- Primary Other acquired deformity of ankle and foot Advance Directives No Advanced Directives Records Found Advance Directive Response Recorded Date/ Time Living Will Yes October 24, 2019 11:09am Power of Manager Disaster Recovery Yes October 23 11:09am Advance Directive Response Recorded Date/ Time Living Will Yes October 24, 2019 10:09am Power of Manager Disaster Recovery Yes October 23 10:09am Advance Directive Response Recorded Date/ Time Do you have a Healthcare Power of Manager Disaster Recovery? Yes February 03, 2025 9:14am Chief Complaint and Reason for Visit Chief Complaint Admit Date POSSIBLE GI BLEED January 09, 2025 1:32p m MURMUR March 04, 2025 11:2 5am Reason for Visit Admit Date Anemia January 09, 2025 1:32p m H/O gastric bypass January 09, 2025 1:32p m Chief Complaint SCREENING Chief Complaint Admit Date POSSIBLE GI BLEED January 09, 2025 1:32p m Chief Complaint Admit Date POSSIBLE GI BLEED January 09, 2025 1:32p m MURMUR March 04, 2025 11:2 5am LEFT AXIL MASS April 04, 2025 9: 02am BIRADS 4 April 10, 2025 7: 46am Reason for Visit Admit Date Anemia January 09, 2025 1:32p m H/O gastric bypass January 09, 2025 1:32p m Left breast mass April 10, 2025 7: 46am Chief Complaint Admit Date POSSIBLE GI BLEED January 09, 2025 1:32p m MURMUR March 04, 2025 11:2 5am LEFT AXIL MASS April 04, 2025 9: 02am BIRADS 4 April 10, 2025 7: 46am L BREAST MASS April 10, 2025 8: 24am Family History No Family History Records Found [...] 2024 End: September 06, 2024 Candie Calderon INSTRUCTOR WARPER, INSTRUCTOR WARPER-C Attending Provider Active Start: September 06, 2024 [...] February 23, 2025 End: February 23, 2025 Team Status: Active Member Role/Relationship Status Dates Dr. Cachorro Whitney MD Primary Care Provider Active Start: March 03, 2025 Dr. Agustin Morataya MD Attending Provider Active S tart: March 03, 2025 Team Status: Inactive Member Role/Relationship Status Dates Dr. Cachorro Whitney MD Primary Care Provider Active Start: March 04, 2025 End: March 04, 2025 Dr. Cachorro Whitney MD Attending Provider Active Start: March 04, 2025 End: March 04, 2025 Dr. Cachorro Whitney MD Referring Provider Active Start: March 04, 2025 End: March 04, 2025 Team Status: Active Member Role/Relationship Status Dates Dr. Cachorro Whitney MD Primary Care Provider Active Start: April 04, 2025 Dr. Cachorro Whitney MD Attending Provider Active Start: April 04, 2025 Dr. Cachorro Whitney MD Referring Provider Active Start: April 04, 2025 Team Status: Inactive Member Role/Relationship Status Dates Dr. Cachorro Whitney MD Primary Care Provider Active Start: April 10, 2025 End: April 10, 2025 Dr. Cachorro Whitney MD Referring Provider Active Start: April 10, 2025 End: April 10, 2025 Dr. Von Velez MD Attending Provider Active Start: April 10, 2025 End: April 10, 2025 Team Status: Inactive Member Role/Relationship Status Dates Dr. Cachorro Whitney MD Primary Care Provider Active Start: April 04, 2025 End: April 04, 2025 Dr. Cachorro Whitney MD Attending Provider Active Start: April 04, 2025 End: April 04, 2025 Dr. Cachorro Whitney MD Referring Provider Active Start: April 04, 2025 End: April 04, 2025 Team Status: Active Member Role/Relationship Status Dates Dr. Cachorro Whitney MD Primary Care Provider Active Start: April 10, 2025 Dr. Von Velez MD Attending Provider Active Start: April 10, 2025 Dr. Von Velez MD Referring Provider Active Start: April 10, 2025 INFORMATION SOURCE (unrecogn ized section and content) DATE CREATED AUTHOR 04/10/2025 [facility] FOR RECORDS PERTAINING TO PATIENTS WHO ARE [...] BE BASED ON THE PRIMARY CLINICAL RECORDS. [employer] provides no warranty or guarantee of the accuracy or completeness of information in this document.
== END 2025-04-10 23:59 | disposition home or self-care (01) ==
LOC: LABSPEC 08:25
PROVIDERS: PCP Family Medicine; Referring Provider Surgery; Visit Provider Surgery
DX: N63.20 Unspecified lump in the left breast, unspecified quadrant (principal)
CPT/HCPCS: 88307; 88341; 88342

== ENCOUNTER 2025-06-06 10:46 | Day surgery (SDC) | payer MEDICARE, SELFPAY ==
--- NOTE | 2025-05-31 16:22 | PAT.ANESEVAL ---
Pre-Assessment Diagnosis/Proposed Procedure Planned Operative Procedure(s): RIGHT POSSIBLE LEFT IJ PORT INSERTION Anesthesia History Anesthesia History - caustics loader: Anesthesia History - caustics loader Hx Hospitalization No 05/31/25 14:40 Any Problems With Anesthesia No 05/31/25 14:40 Cholinesterase deficiency No 05/31/25 14:40 You/Your Family Experience No 05/31/25 14:40 fever (hyperthermia) with Relationship Recent Exposure to Contagious No 02/07/25 07:30 Disease Does patient have nerve No 05/31/25 14:40 stimulator Patient instructed to have device shut off --Does patient have Pacemaker or ICD? When Was Last Pacemaker Check QUESTION #4 FULL TEXT: You/Your Family Experience fever (hyperthermia) with Anesthesia Last Oral Intake Last Oral intake: Last Oral Intake NPO since Meds taken in AM with sips of water? Meds patient instructed to take am of surgery PONV PONV - caustics loader: PONV - caustics loader Female Yes 05/31/25 14:40 HX of Motion Sickness No 05/31/25 14:40 HX of N/V After Surgery No 05/31/25 14:40 Non-Smoker Yes 05/31/25 14:40 Duration of Surgery greater No 05/31/25 14:40 than 60 minutes Number of Risk Factors 2 05/31/25 14:40 PONV Score Moderate Risk 05/31/25 14:40 Height & Weight Height & Weight: Anesthesia: Height & Weight Height 5 ft 5 in 05/25/25 09:18 Respiratory Assessment Respiratory Assessment - caustics loader: Respiratory Tract Infection Hx - caustics loader Hx Respiratory Tract Infection No 05/31/25 14:40 STOP Sleep Apnea STOP Sleep Apnea - caustics loader: STOP Sleep Apnea - caustics loader Hx Hypertension No: hypotension 05/31/25 14:40 Hx Sleep Apnea No 05/31/25 14:40 CPAP BIPAP Do you snore loudly (louder No 05/31/25 14:40 than talking or can be heard Do you often feel tired/ No 05/31/25 14:40 fatigued/ sleepy during daytime? Has anyone observed you stop No 05/31/25 14:40 breathing during sleep? STOP Results Negative 05/31/25 14:40 QUESTION #5 FULL TEXT : Do you snore loudly (louder than talking or can be heard through closed doors)? 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 Specify any problems Hx of Preganancy in last 3 N/A 05/31/25 14:40 Months Nurse Filling Out Transfusion NBUCHER 05/31/25 14:40 & Questions: Date: 05/31/25 05/31/25 14:40 Time: 14:42 05/31/25 14:40 Patient unable to answer at this time (ie. confused, unrespo /Reproduction History /Reproductive History - caustics loader: /Reproductive Hx- caustics loader Hx Now No 05/31/25 14:40 Gestational Age (in weeks): EDC: Hx Hx Para Hx Section SAB No 05/31/25 14:40 [facility] Medical History Encounter for education DLBCL (diffuse large B cell lymphoma) Hypothyroidism Wears partial dentures Wears glasses Post-menopausal Non-smoker History of echocardiogram History of stress test History of irregular heartbeat Foot drop, right Anemia Carpal tunnel syndrome Thyroid disease Fatigue Dysuria Hyperlipemia Diabetes Home Medications ?Medication ?Instructions ?Recorded ?Last Taken ?Type calcium carbonate (Calcium 500) 500 mg PO DAILY 10/13/17 Unknown History folic acid 0.8 mg capsule 800 mcg PO QDAY 10/13/17 Unknown History levothyroxine 75 mcg capsule 75 mcg PO DAILY 10/13/17 02/16/19 08:00 History 75 MCG metformin 1,000 mg tablet 1,000 mg PO BID 10/13/17 Unknown History multivitamin 1 tab PO QAM 10/13/17 Unknown History magnesium oxide 400 mg (241.3 mg 400 mg PO DAILY 10/16/17 Unknown History magnesium) tablet aspirin 81 mg tablet,delayed 81 mg PO DAILY [facility] 10/24/19 01/31/25 History release Held on 05/31/25. Instructions: PT HOLDING UNTIL AFTER TREATMENT ferrous sulfate 325 mg (65 mg 325 mg PO TID 01/09/25 01/31/25 History iron) tablet (Feosol) Held on 05/31/25. Instructions: PATIENT HOLDING UNTIL AFTER TREATMENT gabapentin 300 mg capsule 300 mg PO QHS PRN pain 05/08/25 Unknown History Held on 05/31/25. Instructions: HOLDING UNTIL AFTER TREATMENT glimepiride 1 mg tablet 1 mg PO QDAY 05/08/25 Unknown History acyclovir 400 mg tablet 400 mg PO BID #60 tabs 05/25/25 Unknown Rx allopurinol 300 mg tablet 300 mg PO .COMPLEX #10 tabs 05/25/25 Unknown Rx lidocaine-prilocaine 2.5 %-2.5 % 1 applic topical ONCE PRN port 05/25/25 Unknown Rx topical cream access 30 days #30 grams ondansetron 8 mg disintegrating 8 mg PO Q8H PRN nausea and 05/25/25 Unknown Rx tablet vomiting #30 tabs prednisone 50 mg tablet 100 mg (2 x 50 mg) PO .COMPLEX #60 05/25/25 Unknown Rx tabs prochlorperazine maleate 10 mg 10 mg PO Q6H PRN nausea and 05/25/25 Unknown Rx tablet vomiting #30 tabs Allergy/AdvReac Type Severity Reaction Status Date / Time No Known Allergies Allergy Verified 05/31/25 14:36 Family History Mother Uterine cancer Sister Heart disease Thyroid disorder Surgical History History of cardiac catheterization Hx of colonoscopy History of esophagogastroduodenoscopy (EGD) History of carpal tunnel release of both wrists H/O gastric bypass Social History Smoking Status: Never smoker second hand exposure: No alcohol intake: never substance use type: does not use caffeine: No what type of physical activity do you participate in: walking frequency: 3-4 times per week seatbelt use: always Audit: Pertinent Findings Pertinent Findings EKG Perinent findings: EKG 05/08/2025. Normal sinus rhythm Echo (EF%) pertinent findings: Echo 03/03/2025. Normal LV size. The left ventricular ejection fraction is 65%. Stage II diastolic dysfunction. Moderate focal aortic valve calcification. Mean aortic valve gradient 16 mmHg. Moderate 2+ eccentric mitral valve insufficiency. The left atrium is severely enlarged. Recommendation Anesthesia Recommendation Anesthesia recommendation: OPTIMIZED for anesthesia
[2025-06-06] VITALS (9 sets, daily range): BP systolic 100–136; BP diastolic 59–117; PULSE 81–87; RESP 12–16; TEMP 36.1–36.6; O2SAT 97–100; BMI 26.4
[2025-06-06] MEDS: Lactated Ringers 1,000 ML 15 ML IV (11:24)
--- NOTE | 2025-06-06 11:46 | PRE.ANES_ITS ---
ASA Classification* ASA Classification ASA Classification: 2 Assessment & Plan Anesthesia* Anesthesia Assessment Anesthesia Assessment: Discussed sedation and/or anesthesia options, risks, benefits, and alternatives with patient/parents/legal guardian/POA. Questions invited. The patient/parents/legal guardian/POA seems to understand and agrees to proceed with anesthesia plan. Reviewed the physical assessment, medical history, allergy history and patient home medications list prior to surgery/procedure/anesthetic and documented any changes. Performed airway and anesthesia risk assessments. Anesthesia Type Anesthesia Type: MAC History Source History Obtained from:: Patient and Chart Anesthesia Focused Assessment* Temperature: 97.8 F Pulse Rate: 81 Blood Pressure: 128/70 Respiratory Rate: 16 Pulse Ox: 100 Oxygen Delivery Method: Room Air Airway Assessment Mouth opens: >3 cm Mallampati Score: III Teeth Condition: Partial (Patient has an upper partial. It is fairly secure. He will stay in.) Neck Range of motion (ROM): Limited ROM (Slight Decrease) Labs Anesthesia Preop lab: CBC WBC, (4.4-11.0) 7.1 K/mm3 05/11/25, 11:14 RBC, (4.2-5.4) 4.40 M/mm3 05/11/25, 11:14 Hgb, (12.0-15.0) 12.1 g/dL 05/11/25, 11:14 Hct, (37-47) 36.9 % L 05/11/25, 11:14 Plt Count, (150-450) 248 K/mm3 05/11/25, 11:14 CHEMISTRY Potassium, (3.3-5.1) 4.2 mmol/L 05/11/25, 11:14 Sodium, (133-145) 139 mmol/L 05/11/25, 11:14 BUN, (4-19) 10 mg/dL 05/11/25, 11:14 Creatinine, (0.70-1.20) 0.53 mg/dL L 05/11/25, 11:14 Glucose, (70-99) 75 mg/dL 05/11/25, 11:14 POC Glucose, (70-110) 162 mg/dL H 10/28/19, 07:56 TSH, (0.300-4.200) 1.930 uIU/mL 02/23/25, 08:12 COAG Pre-Assessment Diagnosis/Proposed Procedure Planned Operative Procedure(s): RIGHT POSSIBLE LEFT IJ PORT INSERTION Anesthesia History Anesthesia History - healthcare receptionist: Anesthesia History - healthcare receptionist Hx Hospitalization No 05/31/25 14:40 Any Problems With Anesthesia No 05/31/25 14:40 Cholinesterase deficiency No 05/31/25 14:40 You/Your Family Experience No 05/31/25 14:40 fever (hyperthermia) with Relationship Recent Exposure to Contagious No 06/06/25 11:13 Disease Does patient have nerve No 05/31/25 14:40 stimulator Patient instructed to have device shut off --Does patient have Pacemaker No 06/06/25 11:13 or ICD? When Was Last Pacemaker Check QUESTION #4 FULL TEXT: You/Your Family Experience fever (hyperthermia) with Anesthesia Last Oral Intake Last Oral intake: Last Oral Intake NPO since 19:00 06/06/25 11:13 Meds taken in AM with sips of No 06/06/25 11:13 water? Meds patient instructed to take am of surgery PONV PONV - healthcare receptionist: PONV - healthcare receptionist Female Yes 05/31/25 14:40 HX of Motion Sickness No 05/31/25 14:40 HX of N/V After Surgery No 05/31/25 14:40 Non-Smoker Yes 05/31/25 14:40 Duration of Surgery greater No 05/31/25 14:40 than 60 minutes Number of Risk Factors 2 05/31/25 14:40 PONV Score Moderate Risk 05/31/25 14:40 Height & Weight Height & Weight: Anesthesia: Height & Weight Height 5 ft 5 in 06/06/25 11:13 Weight: 71.9 kg 06/06/25 11:13 Body Mass Index (BMI) 26.4 06/06/25 11:13 Respiratory Assessment Respiratory Assessment - healthcare receptionist: Respiratory Tract Infection Hx - healthcare receptionist Hx Respiratory Tract Infection No 05/31/25 14:40 STOP Sleep Apnea STOP Sleep Apnea - healthcare receptionist: STOP Sleep Apnea - healthcare receptionist Hx Hypertension No: hypotension 05/31/25 14:40 Hx Sleep Apnea No 05/31/25 14:40 CPAP BIPAP Do you snore loudly (louder No 05/31/25 14:40 than talking or can be heard Do you often feel tired/ No 05/31/25 14:40 fatigued/ sleepy during daytime? Has anyone observed you stop No 05/31/25 14:40 breathing during sleep? STOP Results Negative 05/31/25 14:40 QUESTION #5 FULL TEXT : Do you snore loudly (louder than talking or can be heard through closed doors)? 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 Specify any problems Hx of Preganancy in last 3 N/A 05/31/25 14:40 Months Nurse Filling Out Transfusion NBUCHER 05/31/25 14:40 & Questions: Date: 05/31/25 05/31/25 14:40 Time: 14:42 05/31/25 14:40 Patient unable to answer at this time (ie. confused, unrespo /Reproduction History /Reproductive History - healthcare receptionist: /Reproductive Hx- healthcare receptionist Hx Now No 05/31/25 14:40 Gestational Age (in weeks): EDC: Hx Hx Para Hx Section SAB No 05/31/25 14:40 Active Medications Active Medications: Current Medications Generic Name Dose Route Start Last Admin Trade Name Freq PRN Reason Stop Dose Admin Cefazolin Sodium 2 gm/ Sodium 110 mls @ 200 mls/hr 06/06/25 12:05 Chloride IV 06/06/25 12:37 INTRAOP ONE Lactated Ringer's 1,000 mls @ 15 mls/hr 06/06/25 11:00 06/06/25 11:24 IV 15 mls/hr .Q48H CHITRA Administration PFSH Medical History Encounter for education DLBCL (diffuse large B cell lymphoma) Hypothyroidism Wears partial dentures Wears glasses Post-menopausal Non-smoker History of echocardiogram History of stress test History of irregular heartbeat Foot drop, right Anemia Carpal tunnel syndrome Thyroid disease Fatigue Dysuria Hyperlipemia Diabetes Home Medications ?Medication ?Instructions ?Recorded ?Last Taken ?Type calcium carbonate (Calcium 500) 500 mg PO DAILY Unknown History folic acid 0.8 mg capsule 800 mcg PO QDAY 10/13/17 Unk nown History levothyroxine 75 mcg capsule 75 mcg PO DAILY 10/13/17 02/16/19 08:00 History 75 MCG metformin 1,000 mg tablet 1,000 mg PO BID 10/13/17 Unk nown History multivitamin 1 tab PO QAM 10/13/17 Unknow n History magnesium oxide 400 mg (241.3 mg 400 mg PO DAILY 10/16 Unknown History magnesium) tablet aspirin 81 mg tablet,delayed 81 mg PO DAILY [facility] 10/24/19 06/04/25 History release ferrous sulfate 325 mg (65 mg 325 mg PO TID 01/09/25 0 01/31/25 History iron) tablet (Feosol) Held on 05/31/25. Instructions: PATIENT HOLDING UNTIL AFTER TREATMENT gabapentin 300 mg capsule 300 mg PO QHS PRN pain 05/08 Unknown History Held on 05/31/25. Instructions: HOLDING UNTIL AFTER TREATMENT glimepiride 1 mg tablet 1 mg PO QDAY 05/08/25 Unknow n History acyclovir 400 mg tablet 400 mg PO BID #60 tabs 05/25 Unknown Rx allopurinol 300 mg tablet 300 mg PO .COMPLEX #10 tabs 05/25/25 Unknown Rx lidocaine-prilocaine 2.5 %-2.5 % 1 applic topical ONCE PRN port 05/25/25 Unknown Rx topical cream access 30 days #30 grams ondansetron 8 mg disintegrating 8 mg PO Q8H PRN nausea and 05/25/25 Unknown Rx tablet vomiting #30 tabs prednisone 50 mg tablet 100 mg (2 x 50 mg) PO .COMPL EX #60 05/25/25 Unknown Rx tabs prochlorperazine maleate 10 mg 10 mg PO Q6H PRN nausea and 05/25/25 Unknown Rx tablet vomiting #30 tabs Allergy/AdvReac Type Severity Reaction Status Date / Time No Known Allergies Allergy Verified 06/06/25 11:08 Family History Mother Uterine cancer Sister Heart disease Thyroid disorder Surgical History History of cardiac catheterization Hx of colonoscopy History of esophagogastroduodenoscopy (EGD) History of carpal tunnel release of both wrists H/O gastric bypass Social History Smoking Status: Never smoker second hand exposure: No alcohol intake: never substance use type: does not use caffeine: No what type of physical activity do you participate in: walking frequency: 3-4 times per week seatbelt use: always Review of Systems (Anesthesia) ROS Narrative System reviewed and no additional complaints, except as documented.
--- NOTE | 2025-06-06 12:52 | PCM.HP.BLA ---
History and Physical Date of Admission: 06/06/25 Intake Vital Signs 05/25/2509:18 05/29/2508:44 Height 5 ft 5 in 5 ft 5 in Weight: 160 lb 159 lb BMI 26.6 26.4 BP 146/75 H 108/66 Blood Pressure Location Lt brachial Rt brachial Position Sitting Sitting Respiration 18 17 Pulse 81 74 Pulse Source Monitor Monitor Temp 98.2 F Pulse Oximetry (%) 99 98 Oxygen Delivery Method room air room air Intake Visit Reasons: DISCUSS PORT PLACEMENT Chief Complaint: discuss port placement Is patient in pain?: No Allergies No Known Allergies Allergy (Verified 05/29/25 08:45) Medications ?Medication ?Instructions ?Recorded ?Confirmed ?Type calcium carbonate (Calcium 500) 500 mg PO DAILY 10/13/17 05/29/25 History folic acid 0.8 mg capsule 800 mcg PO QDAY 10/13/17 05/29/25 History levothyroxine 75 mcg capsule 75 mcg PO DAILY 10/13/17 05/29/25 History metformin 1,000 mg tablet 1,000 mg PO BID 10/13/17 05/29/25 History multivitamin 1 tab PO QAM 10/13/17 05/29/25 History magnesium oxide 400 mg (241.3 mg 400 mg PO DAILY 10/16/17 05/29/25 History magnesium) tablet aspirin 81 mg tablet,delayed 81 mg PO DAILY [facility] 10/24/19 05/29/25 History release ferrous sulfate 325 mg (65 mg 325 mg PO TID 01/09/25 05/29/25 History iron) tablet (Feosol) gabapentin 300 mg capsule 300 mg PO QHS PRN 05/08/25 05/29/25 History glimepiride 1 mg tablet 1 mg PO QDAY 05/08/25 05/29/25 History acyclovir 400 mg tablet 400 mg PO BID #60 tabs 05/25/25 05/29/25 Rx allopurinol 300 mg tablet 300 mg PO .COMPLEX #10 tabs 05/25/25 05/29/25 Rx lidocaine-prilocaine 2.5 %-2.5 % 1 applic topical ONCE PRN port 05/25/25 05/29/25 Rx topical cream access 30 days #30 grams ondansetron 8 mg disintegrating 8 mg PO Q8H PRN nausea and 05/25/25 05/29/25 Rx tablet vomiting #30 tabs prednisone 50 mg tablet 100 mg (2 x 50 mg) PO .COMPLEX #60 05/25/25 05/29/25 Rx tabs prochlorperazine maleate 10 mg 10 mg PO Q6H PRN nausea and 05/25/25 05/29/25 Rx tablet vomiting #30 tabs Have you fallen in the past year?: No PFS Medical History (Updated 05/29/25 @ 08:44 by Ciara Hernandez) Encounter for education DLBCL (diffuse large B cell lymphoma) Hypothyroidism Wears partial dentures Wears glasses Post-menopausal Non-smoker History of echocardiogram History of stress test History of irregular heartbeat Foot drop, right Anemia Carpal tunnel syndrome Thyroid disease Fatigue Dysuria Hyperlipemia Diabetes Surgical History History of cardiac catheterization Hx of colonoscopy History of esophagogastroduodenoscopy (EGD) History of carpal tunnel release of both wrists H/O gastric bypass Family History Mother Uterine cancer Sister Heart disease Thyroid disorder Social History Smoking Status: Never smoker second hand exposure: No alcohol intake: never substance use type: does not use caffeine: No what type of physical activity do you participate in: walking frequency: 3-4 times per week seatbelt use: always HPI HPI HPI: Patient is an 80-year-old female 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 I discussed placing a chest port with her at today's visit. ROS General General: Yes weight change and fatigue; No appetite, colon cancer, breast cancer or weakness HEENT HEENT: No difficulty swallowing, eye injury, eye surgery, swollen glands or hoarseness Endo Endocrine: Yes thyroid disease and diabetes mellitus; No thyroid cancer, Hair loss, heat intolerance or cold intolerance Skin Skin: No rash or changing moles Musc Musculoskeletal: No back problems, arthritis, rheumatoid arthritis, gout or joint pain Cardio Cardiovascular: No murmur, pacemaker, heart disease, atrial fibrillation, high blood pressure, heart attack, heart stent, palpitations, shortness of breath with exertion or chest pain Psych Psychiatric: No depression, anxiety or hearing voices Resp Respiratory: No shortness of breath, No sleep apnea, No cough, No COPD, No asthma, No emphysema and No wheezing Gastro Gastrointestinal: No abdominal pain, No nausea or vomiting, No diarrhea, No constipation, No blood in stool, No acid reflux, No hemorrhoids, No ulcers, No gallbladder problem and No black,tarry stools Jasson Hematologic: No blood thinners, No blood disorders, No bleeding, Yes anemia and No blood clots Neuro Neurologic: No system reviewed and no additional complaints, except as documented, No as per HPI, No abnormal gait, No abnormal hearing, No abnormal movements, No abnormal speech, No behavioral changes, No burning sensations, No confusion, No convulsions, No disequilibrium, No dizziness, No localized weakness, No frequent falls, No headache(s), No lack of coordination, No loss of vision, No memory loss, No numbness, No other visual disturbances, No radicular pain, No restless legs, No sensory deficit, No syncope, No tingling, No tremor(s), No weakness and No other Exam Const General: cooperative Orientation: alert and oriented x3 [facility] Head: normal to inspection Neck Neck: normal visual inspection and full ROM Chest Chest palpation & inspection: normal inspection of the chest Resp Effort & Inspection: normal respiratory effort Auscultation: clear to auscultation bilaterally Cardio Rate: regular rate Rhythm: regular rhythm GI Inspection: non-distended Palpation: soft and nontender Skin General: no rashes or lesions noted Neuro General: patient alert and patient oriented x3 Extrem General: full ROM Psych Appearance: grossly normal Mental Status: mental status grossly normal Assessment and Plan Assessment and Plan (1) Encounter for insertion of venous access port: Status: Acute Plan: I discussed placing a right chest port on the patient. I discussed port placement as well as the risks of the procedure such as bleeding, infection, pneumothorax, line infection. Patient understands the risks and is willing to proceed. Von Velez MD Pager: [facility] [address] [place] [address], [address] [place] [address] Office: I have examined the patient and the H&P has been reviewed. There are no clinical changes since date of exam.
[2025-06-06] MEDS: Cefazolin 1 GM/5 ML Vial 2 GM IV (13:49)
[2025-06-06] MEDS: Lidocaine 1% (5 ml sdv) 5 ML Vial 1 ML IV (13:52)
[2025-06-06] MEDS: Midazolam 2 MG/2 ML Syringe IV (13:56)
[2025-06-06] MEDS: fentaNYL 100 MCG/2 ML Ampul 25 MCG IV (13:57)
[2025-06-06] MEDS: Lidocaine 1% /Epi 1:100 (20ml) 20 ML Vial (14:00)
--- NOTE | 2025-06-06 14:12 | OP.PCM_ITS ---
Operative Report (Standard) Operative Information Date of Procedure: 06/06/25 Pre-Operative Diagnosis: Need for vascular access for chemotherapy for lymphoma Post-Operative Diagnosis: Same Surgery/Procedure Performed: Ultrasound and fluoroscopy guided right chest port placement utilizing right IJ orthotist or prosthetist: No Type of Anesthesia: Local MAC RN Documented Start/Stop Times: Operation Date: 06/06/25 12:45 Case Time Into Pre-Op 06/06/25 10:53 Out of Pre-Op 06/06/25 13:35 Anesthesia Start 06/06/25 13:42 Into Room 06/06/25 13:42 Procedure Start 06/06/25 13:56 Procedure End 06/06/25 14:08 Anesthesia End 06/06/25 14:12 Out of Room 06/06/25 14:12 Procedure Start Time: 13:56 Procedure Stop Time: 14:12 Select all DRAINS/GRAFTS/IMPLANTS that apply: Implanted device Implanted device details: 8 [employer] PowerPort Estimated Blood Loss: 5 Specimen collected: No Description of surgery: After obtaining informed consent patient was brought back to the operating room MAC anesthesia was induced and the right chest and neck were prepped in normal sterile fashion. Ultrasound was used to evaluate both IJs and the right IJ was selected. Next, using a needle, the right IJ was accessed and a guidewire was passed on into the superior vena cava under fluoroscopy guidance. A small incision was made over the puncture site and the dilator introducer was placed over the guidewire. Next this was capped and the pocket was made for the port. 1% lidocaine with epinephrine was injected in the proposed port site. An incision was made with scalpel. Electrocautery was used to make a pocket under the skin and subcutaneous tissue. Hemostasis was obtained. Next, the catheter was tunneled up to the neck incision site and placed through the introducer. The peel-away introducer was removed and the position of the catheter was confirmed on fluoroscopy. Next, the catheter was trimmed and attached to the port with the locking device. Interrupted 2-0 Vicryl sutures were used to anchor the port to the chest wall and then the port was placed inside the pocket. The pocket was then flushed with saline and the port irrigated with s ar. There was good blood return and the port flushed easily. Next, heparin was injected into the port. The skin was closed with subcutaneous interrupted 3-0 Vicryl sutures. A single 3-0 Vicryl sutures placed under the skin at the neck incision site. Steri-Strips were placed as well as op sites. Patient tolerated procedure well, was taken to PACU in stable condition. Chest x-ray will be obtained. Surgical Findings: None Complications Complications: No Admit VTE Documentation VTE Mechan Device Prophylaxis: SCD's
--- NOTE | 2025-06-06 14:13 | DCINST_ITS ---
Discharge Instructions Procedure Port-A-Cath Diet Discharge Diet: Light diet - advance as tolerated (Pain medication may cause nausea. You should typically eat light foods as you take your pain medication.) Activity Discharge Activity: Return to Normal Activity and May Shower (with your bandage in place in 1-2 days after surgery. DO NOT SHOWER WHEN YOUR PORT IS ACCESSED.) Lifting Restrictions: 15 pounds for 1 week Additional Activity Instructions:: Alternate ibuprofen and Tylenol for pain control Resume aspirin tomorrow Dressing / Incision Call your doctor if your incision/area has: Continuous Slow Oozing, Sudden Increased Bleeding, Increased Pain/ Swelling, Increased Redness and Foul Smelling Discharge Call your doctor if you observe: Fever of 101 or Higher Remove Dressing in: 2 days Cleanse incision/area with: Soap & Water Follow Up Care Please Follow Up With: Von Velez MD When: as needed [phone] Test Results: Test results from this visit will be discussed in further detail at your follow- up appointment, if applicable. Discharge Plan Admission Attending Provider: Von Velez Primary Care Provider: Cachorro Whitney Instructions Print Language: Yoruba Discharge Orders/Prescriptions Prescriptions: No Action metformin 1,000 mg tablet 1,000 mg PO BID levothyroxine 75 mcg capsule 75 mcg PO DAILY calcium carbonate [Calcium 500] 500 mg calcium (1,250 mg) tablet 500 mg PO DAILY folic acid 0.8 mg capsule 800 mcg PO QDAY multivitamin tablet 1 tab PO QAM magnesium oxide 400 mg tablet 400 mg PO DAILY ferrous sulfate [Feosol] 325 mg (65 mg iron) tablet 325 mg PO TID glimepiride 1 mg tablet 1 mg PO QDAY gabapentin 300 mg capsule 300 mg PO QHS PRN (Reason: pain) prochlorperazine maleate 10 mg tablet 10 mg PO Q6H PRN (Reason: nausea and vomiting) Qty: 30 2RF acyclovir 400 mg tablet 400 mg PO BID Qty: 60 0RF ondansetron 8 mg tablet,disintegrating 8 mg PO Q8H PRN (Reason: nausea and vomiting) Qty: 30 2RF lidocaine-prilocaine 2.5-2.5 % cream 1 applic topical ONCE PRN (Reason: port access) 30 Days Qty: 30 2RF prednisone 50 mg tablet 100 mg PO .COMPLEX Qty: 60 0RF Rx Instructions: 100 mg orally daily ONLY days 1-5 of treatment cycle allopurinol 300 mg tablet 300 mg PO .COMPLEX Qty: 10 0RF Rx Instructions: 300 mg orally daily on days 0-9 of treatment cycle only aspirin 81 MG tablet,delayed release (DR/EC) 81 mg PO DAILY Patient Comments: follow instructions about stopping Referrals / Follow Up: Cachorro Whitney MD [Primary Care Provider, Family Practice] Disposition Disposition (needs filled in before D/C Order can be placed): Home, Self Care
--- NOTE | 2025-06-06 14:16 | PCM.POST.ANE ---
Anesthesia: Postop Eval I Current Vital Signs Temperature: 96.9 F Pulse Rate: 87 Blood Pressure: 115/76 Respiratory Rate: 12 Pulse Ox: 97 Oxygen Delivery Method: Room Air Assessment Airway patent: Yes Spontaneous unlabored respirations: Yes Mental status: Awake and Calm nausea: No Vomiting: No Anesthesia Complication: No Fluid Hydration Crystalloid volume administer (ml): 600 Total IV fluid infused: 600 Progress Note Anesthesia document: Postop Eval 1 completed: Yes
--- NOTE | 2025-06-06 14:20 | RAD_ITS ---
PROCEDURE: CXR FOR LINE PLACEMENT 06/06/2025 REASON FOR EXAM: LINE PLACEMENT TECHNIQUE: Procedure Code: RADCXRLP Modality: DX Procedure: CXR FOR LINE PLACEMENT COMPARISON: 05/17/2025 PET-CT. FINDINGS: Right chest Port-A-Cath with tip terminating in the mid superior vena cava. No pneumothorax. The heart appears enlarged which may be due to cardiomegaly or exaggerated AP technique. Left basilar calcific density favoring a calcified granuloma. RAD/CXR for Line Placement IMPRESSION: Right chest Port-A-Cath. No pneumothorax. Reading Location: [id number]
--- NOTE | 2025-06-06 22:15 | POSTOPAN2_ITS ---
Anesthesia Postop Eval I Sum Postop Eval Completion status Anesthesia document: Postop Eval 1 completed: Yes Anesthesia Postop Eval I Summary Anesthesia Postop Eval I Summary: Anesthesia Postop Eval I: Assessment Summary Airway patent Yes 06/06/25 14:19 HOSPITAL SALES REPRESENTATIVE.[email or web address] Spontaneous unlabored Yes 06/06/25 14:19 HOSPITAL SALES REPRESENTATIVE.SHOF respirations Mental status Awake,Calm 06/06/25 14:19 HOSPITAL SALES REPRESENTATIVE.SHOF nausea No 06/06/25 14:19 HOSPITAL SALES REPRESENTATIVE.SHOF Vomiting No 06/06/25 14:19 HOSPITAL SALES REPRESENTATIVE.SHOF Anesthesia Postop Eval I: Fluid Summary Crystalloid volume administer 600 06/06/25 14:19 HOSPITAL SALES REPRESENTATIVE.SHOF (ml) Colloids volume administered ( ml) Blood Product volume administered (ml) Total IV fluid infused 600 06/06/25 14:19 HOSPITAL SALES REPRESENTATIVE.SHOF Anesthesia Postop Eval I: Summary Notes Anesthesia Complication No 06/06/25 14:19 HOSPITAL SALES REPRESENTATIVE.SHOF Anesthesia Complication Comment: Post-operative progress note Anesthesia: Postop Eval II Evaluation Mental status: Awake and Calm Pain Level: 1 nausea: No Vomiting: No Complications Anesthesia Complication: No
--- NOTE | 2025-06-06 22:15 | PCM.POSTANE2 ---
Anesthesia Postop Eval I Sum Postop Eval Completion status Anesthesia document: Postop Eval 1 completed: Yes Anesthesia Postop Eval I Summary Anesthesia Postop Eval I Summary: Anesthesia Postop Eval I: Assessment Summary Airway patent Yes 06/06/25 14:19 [employer] PROGRAM DIRECTOR.SHOF Spontaneous unlabored Yes 06/06/25 14:19 M[employer]ESSORI PROGRAM DIRECTOR.SHOF respirations Mental status Awake,Calm 06/06/25 14:19 MONTESSORI PROGRAM DIRECTOR.SHOF nausea No 06/06/25 14:19 M[employer]ESSORI PROGRAM DIRECTOR.SHOF Vomiting No 06/06/25 14:19 MONTESSORI PROGRAM DIRECTOR.SHOF Anesthesia Postop Eval I: Fluid Summary Crystalloid volume administer 600 06/06/25 14:19 MONTESSORI PROGRAM DIRECTOR.SHOF (ml) Colloids volume administered ( ml) Blood Product volume administered (ml) Total IV fluid infused 600 06/06/25 14:19 MONTESSORI PROGRAM DIRECTOR.SHOF Anesthesia Postop Eval I: Summary Notes Anesthesia Complication No 06/06/25 14:19 MONTESSORI PROGRAM DIRECTOR.SHOF Anesthesia Complication Comment: Post-operative progress note Anesthesia: Postop Eval II Evaluation Mental status: Awake and Calm Pain Level: 1 nausea: No Vomiting: No Complications Anesthesia Complication: No
== END 2025-06-06 15:13 | disposition home or self-care (01) ==
LOC: SDC 10:47 → AC 10:50
PROVIDERS: PCP Family Medicine; Referring Provider Surgery; Visit Provider Surgery
PROC: (CPT 36561; principal; 2025-06-06 12:30)
DX: Z45.2 Encounter for adjustment and management of vascular access device (principal); C83.34 Diffuse large B-cell lymphoma, lymph nodes of axilla and upper limb; E11.9 Type 2 diabetes mellitus without complications; Z79.84 Long term (current) use of oral hypoglycemic drugs; E78.5 Hyperlipidemia, unspecified; Z79.890 Hormone replacement therapy; E03.9 Hypothyroidism, unspecified; Z79.82 Long term (current) use of aspirin
CPT/HCPCS: 36561; 00532; 71045; 77001; 82962; C1788

== ENCOUNTER 2025-08-14 19:39 | Inpatient (IN) | payer MEDICARE, SELFPAY ==
[2025-08-14] VITALS (18 sets, daily range): BP systolic 89–121; BP diastolic 42–64; PULSE 81–109; RESP 11–22; TEMP 36.4–37.3; O2SAT 97–100; BMI 26.4; BMI 26.3
--- NOTE | 2025-08-14 19:44 | EKG12_ITS ---
Test Reason : DYSRHYTHMIA Blood Pressure : */* mmHG Vent. Rate : 95 BPM Atrial Rate : 95 BPM P-R Int : 204 ms QRS Dur : 98 ms QT Int : 374 ms P-R-T Axes : 86 14 101 degrees QTcB Int : 469 ms Normal sinus rhythm Nonspecific T wave abnormality Abnormal ECG Confirmed by Rodney Padron ([id number]), magazine editor GABRIELLA FUENTES ([id number]) on 08/15/2025 10:57:20 AM Also confirmed by Rodney Padron ([id number]), magazine editor GABRIELLA FUENTES ([id number]) on 08/16/2025 11:05:49 AM Referred By: Confirmed By: Rodney Padron
[2025-08-14] MEDS: 0.9% Normal Saline (1000mL) 1,000 ML 50 ML IV (20:43)
[2025-08-14 20:49] LABS: Hematocrit 16.9 % (37-47); Mean Corp Hgb Conc 33.1 g/dL (32-36); Mean Corpuscular Volume 93.9 fL (81-99); Mean Platelet Vol. 10.7 fl (6.2-12.0); POSITIVE COUNT YES; POSITIVE DIFFERENTIAL YES; POSITIVE MORPHOLOGY YES; Platelet Count 103 K/mm3 (150-450); RBC Distribution Width CV 19.3 % (11.6-14.6); RBC Distribution Width SD 66.3 fl (35.1-43.9); Red Blood Count 1.80 M/mm3 (4.2-5.4); White Blood Count 9.2 K/mm3 (4.4-11.0)
[2025-08-14 20:52] LABS: Hemoglobin 5.6 g/dL (12.0-15.0)
[2025-08-14 21:09] LABS: Lipase 14 U/L (13-75)
--- NOTE | 2025-08-14 21:16 | EX.ED.DYSGE1 ---
HPI History of Present Illness Chief Complaint: GI Bleed Narrative Narrative: patient is a 80-year-old female with a past medical history of diffuse large B-cell lymphoma, hypothyroidism, anemia, hyperlipidemia, diabetes who presented to the emergency department the chief complaint of bright red blood in her stool. States that she had not have a bowel movements for the last 2 days and notes that she had a bowel movement today and noted that she had multiple episodes of bright red blood. Patient denies any blood thinning medications. [facility] Medical History Diffuse large b-cell lymphoma, lymph nodes of axilla and upper limb Encounter for antineoplastic chemotherapy and immunotherapy Encounter for education DLBCL (diffuse large B cell lymphoma) Hypothyroidism Wears partial dentures Wears glasses Post-menopausal Non-smoker History of echocardiogram History of stress test History of irregular heartbeat Foot drop, right Anemia Carpal tunnel syndrome Thyroid disease Fatigue Dysuria Hyperlipemia Diabetes Home Medications ?Medication ?Instructions ?Recorded ?Last Taken ?Type calcium carbonate (Calcium 500) 500 mg PO DAILY 10/13/17 Unknown History folic acid 0.8 mg capsule 800 mcg PO QDAY 10/13/17 Unknown History levothyroxine 75 mcg capsule 75 mcg PO DAILY 10/13/17 02/16/19 08:00 History 75 MCG metformin 1,000 mg tablet 1,000 mg PO BID 10/13/17 Unknown History multivitamin 1 tab PO QAM 10/13/17 Unknown History magnesium oxide 400 mg (241.3 mg 400 mg PO DAILY 10/16/17 Unknown History magnesium) tablet aspirin 81 mg tablet,delayed 81 mg PO DAILY heart health 10/24/19 06/04/25 History release gabapentin 300 mg capsule 300 mg PO QHS PRN pain 05/08/25 Unknown History Held on 05/31/25. Instructions: HOLDING UNTIL AFTER TREATMENT glimepiride 1 mg tablet 1 mg PO QDAY 05/08/25 Unknown History lidocaine-prilocaine 2.5 %-2.5 % 1 applic topical ONCE PRN port 05/25/25 Unknown Rx topical cream access 30 days #30 grams ondansetron 8 mg disintegrating 8 mg PO Q8H PRN nausea and 05/25/25 Unknown Rx tablet vomiting #30 tabs prednisone 50 mg tablet 100 mg (2 x 50 mg) PO .COMPLEX #60 05/25/25 Unknown Rx tabs prochlorperazine maleate 10 mg 10 mg PO Q6H PRN nausea and 05/25/25 Unknown Rx tablet vomiting #30 tabs acyclovir 400 mg tablet 400 mg PO BID #60 tabs 07/19/25 Unknown Rx Allergy/AdvReac Type Severity Reaction Status Date / Time No Known Allergies Allergy Verified 08/14/25 19:43 Family History Mother Uterine cancer Sister Heart disease Thyroid disorder Surgical History History of cardiac catheterization Hx of colonoscopy History of esophagogastroduodenoscopy (EGD) History of carpal tunnel release of both wrists H/O gastric bypass Social History Smoking Status: Never smoker second hand exposure: No alcohol intake: never substance use type: does not use caffeine: No what type of physical activity do you participate in: walking frequency: 3-4 times per week seatbelt use: always ROS ROS ED ROS Narrative Constitutional: Generalized weakness as noted above Eyes: Denies double vision Cardiovascular: Denies chest pain Respiratory: Denies shortness of breath Abdomen: Complains of bright red blood with bowel movements as above denies any abdominal pain nausea vomiting : Denies urinary symptoms Neurological: Denies any numbness, weakness, tingling Musculoskeletal: Denies back pain Skin: Denies any rashes or lesions EXAM Physical Exam Narrative Exam Narrative: General: Patient was lying in bed rest comfortably did not appear to be acute distress Head: Atraumatic, normocephalic Eyes: PERRL bilaterally, EOMI bilaterally, no conjunctival injection noted Neck: Soft, supple, trachea midline Cardiovascular: Regular rate and rhythm Respiratory: Clear to auscultation bilaterally Abdomen: Soft, nondistended, no tenderness to palpation Extremities: +4/5 strength noted in the bilateral upper and lower extremities Neurological: Patient following commands knew that she was at [facility] the year is 2024 Skin: Warm, dry, intact no rashes or lesions noted Const Vital Signs: 08/14/25 19:42 08/14/25 20:37 08/14/25 20:45 Temperature 97.5 F L Temperature Source Oral Pulse Rate 99 81 Respiratory Rate 22 H 15 Blood Pressure 103/56 L 90/64 Blood Pressure Mean 71 72 Pulse Ox 100 98 98 Oxygen Delivery Method Room Air Room Air 08/14/25 21:00 08/14/25 21:24 Temperature 98.3 F Temperature Source Pulse Rate 93 93 Respiratory Rate 14 14 Blood Pressure 109/46 L 109/46 L Blood Pressure Mean 67 67 Pulse Ox 100 100 Oxygen Delivery Method MDM MDM MDM Narrative Medical decision making narrative: Patient is a 80-year-old female who presented to the emergency department with a chief complaint of bright red blood per rectum with the chief complaint of generalized weakness. On the differential diagnose includes but limited to anemia, lower GI bleed, electrolyte abnormality. Once workup is obtained and reviewed she will be reevaluated. Workup was started by my evaluation. Patient CBC reviewed and showed a white blood count of 9.2, hemoglobin is low at 5.6, platelet count of 103. Patient was typed and crossed for 3 units of blood lipase normal at 14. Patient sodium 132, potassium 3.9, creatinine normal 0.49. Patient AST and ALT are 12 and 14 respectively. Discussed case with hospitalist Dr. Hugo hernandez except patient for admission patient was notified is agreeable to plan all question concerns answered. Lab Data Labs: Laboratory Results - last 24 hr 08/14/25 08/14/25 20:35 20:40 WBC 9.2 RBC 1.80 L Hgb 5.6 L* Hct 16.9 L MCV 93.9 MCH 31.1 MCHC 33.1 RDW Std Deviation 66.3 H RDW Coeff of Mesfin 19.3 H Plt Count 103 L MPV 10.7 Immature Gran % (Auto) Not Reportable Neut % (Auto) Not Reportable Lymph % (Auto) Not Reportable M[place]ulloch % (Auto) Not Reportable Eos % (Auto) Not Reportable Baso % (Auto) Not Reportable Absolute Neuts (auto) 7.4 Absolute Lymphs (auto) 1.01 Total Counted 100 Neutrophils % (Manual) 80 H Band Neutrophils % 1 Lymphocytes % (Manual) 11 L Monocytes % (Manual) 2 Eosinophils % (Manual) 2 Metamyelocytes % 3 H Promyelocytes % 1 H Nucleated RBC % Not Reportable Platelet Estimate SLT DEC Anisocytosis 2+ Microcytosis 1+ Macrocytosis 1+ Ovalocytes RARE John Cells RARE Sodium 132 L Potassium 3.9 Chloride 98 Carbon Dioxide 21.9 Anion Gap 12 BUN 31 H Creatinine 0.49 L Estim Creat Clear Calc 54.89 Est GFR (MDRD) Non-Af 95 BUN/Creatinine Ratio 63.2 H Glucose 224 H Calcium 8.6 Total Bilirubin 0.29 Direct Bilirubin 0.13 AST 12 ALT 14 Alkaline Phosphatase 73 Total Protein 5.0 L Albumin 3.5 Globulin 1.5 L Lipase 14 Blood Type O NEGATIVE Antibody Screen NEGATIVE Crossmatch See Detail Discharge Plan Dx/Rx/DC Orders Clinical Impression: Anemia, Diabetes, DLBCL (diffuse large B cell lymphoma), Generalized weakness Disposition Disposition: Acute Care Hospital [facility]
--- OUTSIDE RECORDS SUMMARY | 2025-08-14 21:26 | XMS RPT_ITS | CCD ---
Author Organization [facility] Care Team Providers Care Dough Molder Hand Name Role Phone Unavailable Primary Care Provider Dejah Gonzalez MD, Dr. Ivory Primary Care Provider Yumiko DRY HEAT CABINET ATTENDANT-C, Candie Attending Provider Devonte PALACIOS, Dr. Ivory Attending Provider Devonte PALACIOS, Dr. Ivory Referring Provider Devonte PALACIOS, Dr. Ivory Primary Care Provider Agustin PALACIOS, Dr. Longoria Attending Provider Agustin PALACIOS, Dr. Longoria Other Provider Rafia PALACIOS, Dr. Velez Attending Provider Agustin PALACIOS, Dr. Longoria Referring Provider [phone] Devonte PALACIOS, Dr. Ivory Primary Care Provider Devonte PALACIOS, Dr. Ivory Referring Provider Devonte PALACIOS, Dr. Ivory Attending Provider Jung PALACIOS, Dr. Castaneda Attending Provider Devonte PALACIOS, Dr. Ivory Primary Care Physician Devonte PALACIOS, Dr. Ivory Referring Provider Agustin PALACIOS, Dr. Longoria Attending Physician Agustin PALACIOS, Dr. Longoria Nurse Practitioner [phone] Devonte PALACIOS, Dr. Ivory Attending Physician Rafia PALACIOS, Dr. Velez Attending Physician Jung PALACIOS, Dr. Castaneda Attending Physician Arabella PALACIOS, Dr. Segundo Attending Physician Arabella PALACIOS, Dr. Segundo Referring Provider Arabella PALACIOS, Dr. Segundo Referring Provider Carly DRY HEAT CABINET ATTENDANT-C, Ngozi Attending Physician Devonte PALACIOS, Dr. Ivory Primary Care Physician Devonte PALACIOS, Dr. Ivory Referring Provider Agustin PALACIOS, Dr. Longoria Attending Physician Agustin PALACIOS, Dr. Longoria Nurse Practitioner [phone] Arabella PALACIOS, Dr. Segundo Referring Provider Devonte PALACIOS, Dr. Ivory Primary Care Physician Rafia PALACIOS, Dr. Velez Attending Physician Devonte PALACIOS, Dr. Ivory Attending Physician Devonte PALACIOS, Dr. Ivory Referring Provider Agustin PALACIOS, Dr. Longoria Attending Physician Agustin PALACIOS, Dr. Longoria Referring Provider Jung PALACIOS, Dr. Castaneda Attending Physician Arabella PALACIOS, Dr. Segundo Attending Physician Carly DRY HEAT CABINET ATTENDANT-C, Ngozi Attending Physician Agustin PALACIOS, Dr. Longoria Nurse Practitioner Arabella PALACIOS, Dr. Segundo Referring Provider Von Velez Attending Unavailable Gonzalez, Cachorro Referring Unavailable Gonzalez, Cachorro Primary Care Unavailable Gonzalez, Cachorro Primary Care Unavailable Gonzalez, Cachorro Referring Unavailable Ratna Bell Attending Unavailable Gonzalez, Cachorro Referring Unavailable CalabrVon bello Attending Unavailable Gonzalez, Cachorro Primary Care Unavailable Yumiko PAYNE, Candie Attending Unavailable Gonzalez, Cachorro Primary Care Unavailable Gonzalez, Cachorro Attending Unavailable Gonzalez, Cachorro Referring Unavailable Gonzalez, Cachorro Primary Care Unavailable CalabrVon bello Referring Unavailable CalabrVon bello Attending Unavailable Gonzalez, Cachorro Primary Care Unavailable Gonzalez, Cachorro Referring Unavailable Calabretta, Von Attending Unavailable Gonzalez, Cachorro Primary Care Unavailable Gonzalez, Cachorro Referring Unavailable Gonzalez, Cachorro Attending Unavailable Gonzalez, Cachorro Primary Care Unavailable Carly DRY HEAT CABINET ATTENDANT, Ngozi Attending Unavailable Gonzalez, Cachorro Primary Care Unavailable Gonzalez, Cachorro Referring Unavailable Gonzalez, Cachorro Referring Unavailable Gonzalez, Cachorro Attending Unavailable Gonzalez, Cachorro Primary Care Unavailable Gonzalez, Cachorro Primary Care Unavailable Isckarus, Ratna Referring Unavailable Isckarus, Ratna Attending Unavailable Gonzalez, Cachorro Primary Care Unavailable Gonzalez, Cachorro Referring Unavailable Isckarus, Ratna Attending Unavailable JungLeonel Attending Unavailable Gonzalez, Cachorro Referring Unavailable Gonzalez, Cachorro Primary Care Unavailable RafiaAgustin torres Attending Unavailable Gonzalez, Cachorro Primary Care Unavailable Calabretta, Von Consulting Unavailable Calabretta, Von Referring Unavailable Calabretta, Von Attending Unavailable Gonzalez, Cachorro Primary Care Unavailable Gonzalez, Cachorro Referring Unavailable Calabretta, Von Attending Unavailable Gonzalez, Cachorro Primary Care Unavailable Calabretta, Von Consulting Unavailable Calabretta, Von Referring Unavailable Gonzalez, Cachorro Primary Care Unavailable Isckarus, Ratna Attending Unavailable Carly DRY HEAT CABINET ATTENDANT, Ngozi Attending Unavailable Gonzalez, Cachorro Primary Care Unavailable Gonzalez, Cachorro Referring Unavailable Gonzalez, Cachorro Referring Unavailable Gonzalez, Cachorro Primary Care Unavailable Calabretta, Von Attending Unavailable Carly DRY HEAT CABINET ATTENDANT, Ngozi Attending Unavailable Gonzalez, Cachorro Primary Care Unavailable Gonzalez, Cachorro Referring Unavailable Calabretta, Von Referring Unavailable Gonzalez, Cachorro Primary Care Unavailable Calabretta, Von Attending Unavailable Gonzalez, Cachorro Referring Unavailable Gonzalez, Cachorro Attending Unavailable Gonzalez, Cachorro Primary Care Unavailable Gonzalez, Cachorro Referring Unavailable Gonzalez, Cachorro Attending Unavailable Gonzalez, Cachorro Primary Care Unavailable Medications Current Medications Medication Drug Class(es) Dates Sig (Normalized) Sig (Original) acyclovir 400 mg oral tablet (4 sources) Herpesvirus Nucleoside Analog DNA Polymerase Inhibitor, Herpes Simplex Virus Nucleoside Analog DNA Polymerase Inhibitor, Herpes Zoster Virus Nucleoside Analog DNA Polymerase Inhibitor Start: 05-25-2025 take 1 tablet by mouth twice daily allopurinol 300 mg oral tablet (4 sources) Xanthine Oxidase Inhibitor Start: 05-25-2025 End: 06-28-2025 Allopurinol 300 mg tablet Discontinued 300 mg PO .COMPLEX 10 0 May 24, 2025 11:00pm June 28, 2025 9:18am 300 mg orally daily on days 0-9 of treatment cycle only aspirin 81 mg delayed release oral tablet (20 sources) Platelet Aggregation Inhibitor, Nonsteroidal Anti-inflammatory Drug Start: 10-24-2019 take 1 tablet by mouth once daily Start: 10-13-2017 End: 10-16-2017 Aspirin 81 mg tablet,delayed release (DR/EC) Discontinued PO 0 October 13, 2017 12:00am October 16, 2017 3:05pm Start: 10-13-2017 End: 10-16-2017 Aspirin Discontinued PO Febr 2017 1:00am October 16, 2017 4:05pm calcium carbonate 1250 mg or al tablet (20 sources) Start: 10-13-2017 take 1 tablet by warner th once daily folic acid 0.8 mg oral capsu le (20 sources) Start: 10-13-2017 Start: 10-13-2017 take 800 ug by mouth once jose y Folic Acid Active 800 MCG PO daily October 13, 2017 1:00am glimepiride 1 mg oral tablet (20 sources) Sulfonylurea Start: 05-08-2025 take 1 tablet by warner th once daily Start: 04-25-2025 End: 05-08-2025 take 1 tablet by mouth once daily Glimepiride 2 mg tablet Discontinued 2 mg PO daily April 24, 2025 11:00pm May 08, 2025 7:55am Start: 10-13-2017 End: 04-25-2025 take 0.5 mg by mouth once daily Glimepiride 1 mg table t Discontinued 0.5 mg PO DAILY October 13, 2017 12:00am April 25, 2025 11:40am Start: 10-13-2017 take 0.5 mg by mouth twice daily Glimepiride 1 mg tablet Active 0.5 mg PO TWICE A DAY October 13, 2017 1:00am Start: 10-13-2017 take 0.5 mg by mouth twice daily Glimepiride Active 0.5 MG PO TWICE A DAY October 13, 2017 1:00am levothyroxine sodium 0.075 mg oral capsule (20 sources) l-Thyroxine Start: 10-13-2017 take 1 capsule by mouth once daily lidocaine 25 mg/ml / prilocaine 25 mg/ml topical cream (4 sources) Antiarrhythmic, Amide Local Anesthetic Start: 05-25-2025 magnesium oxide 400 mg oral tablet (20 sources) Start: 10-16-2017 take 1 tablet by mouth once daily metFORMIN hydrochloride 1000 mg oral tablet (20 sources) Biguanide Start: 10-13-2017 take 1 tablet by mouth twice daily Multivitamin preparation (5 sources) Start: 10-13-2017 take [...] MORNING October 13, 2017 12:00am Multivitamin tablet (16 sources) Start: 10-13-2017 Start: 10-13-2017 Multivitamin t ablet Active 1 {tbl} PO EVERY MORNING October 13, 2017 1:00am Complies with drug therapy Start: 10-13-2017 Start: 10-13-2017 Multivitamin t ablet Active 1 {tbl} PO EVERY MORNING October 13, 2017 1:00am ondansetron 8 mg disintegrating oral tablet (4 sources) Serotonin-3 Receptor Antagonist Start: 05-25-2025 take 1 tablet by mouth every eight hours as needed for nausea and vomiting predniSONE 50 mg oral tablet (4 sources) Start: 05-25-2025 take 1-5 tablets by mouth once daily prochlorperazine 10 mg oral tablet (4 sources) Phenothiazine Start: 05-25-2025 take 1 tablet by mouth every six hours as needed for nausea and vomiting Completed/Discontinued Medications Medication Drug Class(es) Dates Sig (Normalized) Sig (Original) acetaminophen 300 mg / codeine phosphate 30 mg oral tablet (20 sources) Opioid Agonist Start: 02-16-2019 End: 02-19-2019 take 1 tablet by mouth every six hours as needed for pain Acetaminophen-Codei ne 1 TABLET tablet Discontinued 1 - 2 {tbl} PO EVERY 6 HOURS NEEDED as needed for Pain 10 2 0 February 15, 2019 11:00pm February 16, 2019 11:00pm February 18, 2019 11:09pm take one tab every 6 hours as [...] for pain, stop all other tylenol products ferrous sulfate 325 mg oral tablet (15 sources) Start: 01-09-2025 take 1 tablet by mouth three times daily gabapentin 300 mg oral capsule (8 sources) Anti-epileptic Agent Start: 05-08-2025 take 1 capsule by mouth at bedtime as needed for pain rosuvastatin calcium 5 mg oral tablet (20 sources) HMG-CoA Reductase Inhibitor Start: 01-20-2019 End: 02-03-2025 take 1 tablet by mouth every other day Rosuvastatin 5 mg tablet Discontinued 5 mg PO EVERY OTHER DAY January 19, 2019 11:00pm February 03, 2025 8:05am triamcinolone acetonide 40 mg/ml injectable suspension (5 [...] Right foot drop; Translations: [Right foot drop] Administrative/social admission (16 sources) Patient encounter status; Translations: [Counseling, unspecified] 05-25-2025 Episodic Cardiac dysrhythmias (16 sources) Atrial tachycardia; Translations: [Atrial tachycardia] 05-08-2025 Chronic Deficiency and other anemia (20 sources) Anemia; Translations: [Anemia, unspecified] 11-10-2017 Episodic Deficiency and other anemia (1 source) Iron deficiency anemia, unspecified; Translations: [Iron deficiency anemia, unspecified] Onset: Episodic Diabetes mellitus without complication (20 sources) Diabetes mellitus; Translations: [Type 2 diabetes mellitus without complications] Onset: 5 11-10-2017 Chronic Disorders of lipid metabolism (20 sources) Hyperlipidemia; Translations: [Hyperlipidemia, unspecified] 11-10-2017 Chronic Genitourinary symptoms and ill-defined conditions (20 sources) Dysuria; Translations: [Dysuria] Onset: 5 11-10-2017 Episodic Heart valve disorders (17 sources) Aortic valve stenosis; Translations: [Nonrheumatic aortic (valve) stenosis] Onset: 5 05-08-2025 Chronic Maintenance chemotherapy; radiotherapy (9 sources) Patient encounter status; Translations: [Encounter for antineoplastic chemotherapy] Onset: 5 06-07-2025 Chronic Malaise and fatigue (20 sources) Fatigue; Translations: [Other fatigue] 11-10-2017 Episodic Non-Hodgkin`s lymphoma (20 sources) B-cell lymphoma (clinical); Translations: [Unspecified B-cell lymphoma, unspecified site] Onset: 5 05-08-2025 Chronic Nonmalignant breast conditions (20 sources) Breast lump; Translations: [Unspecified lump in the left breast, unspecified quadrant] Onset: 5 04-10-2025 Episodic Other aftercare (1 source) Encounter for adjustment and management of vascular access device; Translations: [Encounter for adjustment and management of vascular access device] Onset: 5 Episodic Other and ill-defined heart disease (16 sources) Diastolic dysfunction; Translations: [Other ill-defined heart diseases] 05-08-2025 Chronic Other and ill-defined heart disease (1 source) Other ill-defined heart diseases; Translations: [Other ill-defined heart diseases] Onset: 5 Chronic Other circulatory disease (8 sources) History of cardiac arrhythmia; Translations: [Personal history of other diseases of the circulatory system] 05-08-2025 Episodic Other circulatory disease (1 source) Personal history of other diseases of the circulatory system; Translations: [Personal history of other diseases of the circulatory system] Onset: 5 Episodic Other gastrointestinal disorders (20 sources) History of bypass of stomach; 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] 11-10-2017 Episodic Other nervous system disorders (20 sources) Carpal tunnel syndrome; Translations: [Carpal tunnel syndrome, unspecified upper limb] 05-06-2018 Chronic Other skin disorders (1 source) Localized swelling, mass and lump, unspecified upper limb; Translations: [Localized swelling, mass and lump, unspecified upper limb] Onset: 5 Episodic Thyroid disorders (10 sources) Hypothyroidism; Translations: [Hypothyroidism, unspecified] Onset: 5 04-25-2025 Chronic Thyroid disorders (20 sources) Disorder of thyroid gland; Translations: [Disorder of thyroid, unspecified] 11-10-2017 Episodic Comment on above: ON MED Unclassified (10 sources) 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, lymph nodes of multiple sites Unclassified (1 source) Other supraventricular tachycardia; Translations: [Other supraventricular tachycardia] Onset: 5 Past or Other Problems Problem Classification Problem Date Documented Da te Episodic/Chronic Deficiency and other anemia (2 sources) Anemia, unspecified; Translations: [Anemia, unspecified] Onset: 01-02-2025 Episodic Heart valve disorders (1 source) Cardiac murmur, unspecified; Translations: [Cardiac murmur, unspecified] Onset: 03-09-2025 Episodic Other gastrointestinal disorders (1 source) Bariatric surgery status; 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] Onset: 01-09-2025 Episodic Urinary tract infections (1 source) Urinary tract infection, site not specified; Translations: [Urinary tract infection, site not specified] Onset: 09-29-2024 Episodic Results Test Name Value Interpretation Reference Range Facility Urine Cultureon 07-01-2025 [facility] Staphylococcus xylos us [place] Count 25,000-50,000 Staphylococcus xylosus: REACTION cefOXitin Susc Islt Doxycycline Islt SHAY 4 S Clindamycin.induced Susc Islt NEG Gentamicin Islt SHAY <=0.5 S Linezolid Islt SHAY 2 S Nitrofurantoin Islt SHAY <=16 S Oxacillin Susc Islt S Tetracycline Islt SHAY >=16 R TMP SMX Islt SHAY <=10 S Vancomycin Islt SHAY <=0.5 S Normal [facility] Comment on above: Performed By: #### M 100.5960 ####[facility] [address] [place], [place], [id number] Bilirubin Test strip Ql (U)O rdered By: Ngozi Carroll on 06-29-2025 Bilirubin Ql (U) Negative Negative [facility] Ketones Test strip Ql (U)Ord ered By: Ngozi Carroll on 06-29-2025 Ketones Ql (U) 5 mg/dl High Negative [facility] Microscopic analysis of urin e for red blood cells (RBC)Ordered By: Ngozi Carroll on 06-29-2025 Microscopic analysis of urine for red blood cells (RBC) 0 SEEN /hpf 0-5 [facility] Mucus LM Ql (Urine sed)Order ed By: Ngozi Carroll on 06-29-2025 Mucus Ql (Urine sed) 0 SEEN /hpf [facility] Nitrite Test strip Ql (U)Ord ered By: Ngozi Carroll on 06-29-2025 Nitrite Ql (U) Negative Negative [facility] Protein Test strip Ql (U)Ord ered By: Ngozi Carroll on 06-29-2025 Protein Ql (U) 15 mg/dl High Negative [facility] Squamous epithelial cells de tection in urine sediment by light microscopyOrdered By: Ngozi Carroll on 06-29-2025 Epithelial cells.squamous LM Ql (Urine sed) 0 SEEN /hpf 5-10 [facility] Urinalysis, Completeon 06-29 WBC 50-100 SEEN Normal 0-5 [facility] Comment on above: Order Comment: COLLE CTOR TO SPECIFY Performed By: #### L 350.4970, L501.1400, L100.0100, L500.4050 #### [facility] [address] [place], [address] BACTERIA 0 SEEN Normal None Seen [facility] Comment on above: Order Comment: COLLE CTOR TO SPECIFY Performed By: #### L 504.2610, L501.1400, L100.0100, L500.4050 #### [facility] [address] [place], [address] EPI,SQUAMOUS 0 SEEN Normal 5-10 [facility] Comment on above: Order Comment: COLLE CTOR TO SPECIFY Performed By: #### L 504.2610, L501.1400, L100.0100, L500.4050 #### [facility] [address] [place], [address] Mucus Ql (Urine sed) 0 SEEN Normal [facility] Comment on above: Order Comment: COLLE CTOR TO SPECIFY Performed By: #### L 504.2610, L501.1400, L100.0100, L500.4050 #### [facility] [address] [place], [address] RBC 0 SEEN Normal 0-5 [facility] Comment on above: Order Comment: COLLE CTOR TO SPECIFY Performed By: #### L 504.2610, L501.1400, L100.0100, L500.4050 #### [facility] [address] [place], [address] BACTERIA Normal None Seen [facility] Comment on above: Order Comment: CLEAN CATCH Result Comment: DUPL ICATE Performed By: #### L 400.0001 ####[facility] [address] [place], [address] BILIRUBIN URINE Normal Negative [facility] Comment on above: Order Comment: CLEAN CATCH Result Comment: DUPL ICATE Performed By: #### L 400.0001 ####[facility] [address] [place], [address] Clarity (U) Normal Clear [facility] Comment on above: Order Comment: CLEAN CATCH Result Comment: DUPL ICATE Performed By: #### L 400.0001 ####[facility] [address] [place], [address] Color (U) Normal Yellow [facility] Comment on above: Order Comment: CLEAN CATCH Result Comment: DUPL ICATE Performed By: #### L 400.0001 ####[facility] [address] [place], [address] EPI,SQUAMOUS Normal 5-10 [facility] Comment on above: Order Comment: CLEAN CATCH Result Comment: DUPL ICATE Performed By: #### L 400.0001 ####[facility] [address] [place], [address] GLUCOSE, UR Normal Normal [facility] Comment on above: Order Comment: CLEAN CATCH Result Comment: DUPL ICATE Performed By: #### L 400.0001 ####[facility] [address] [place], [address] KETONE UR Normal Negative [facility] Comment on above: Order Comment: CLEAN CATCH Result Comment: DUPL ICATE Performed By: #### L 400.0001 ####[facility] [address] [place], [address] LEUK ESTERASE Normal Negative [facility] Comment on above: Order Comment: CLEAN CATCH Result Comment: DUPL ICATE Performed By: #### L 400.0001 ####[facility] [address] [place], [address] Mucus Ql (Urine sed) Normal [facility] Comment on above: Order Comment: CLEAN CATCH Result Comment: DUPL ICATE Performed By: #### L 400.0001 ####[facility] [address] [place], [address] Nitrite Ql (U) Normal Negative [facility] Comment on above: Order Comment: CLEAN CATCH Result Comment: DUPL ICATE Performed By: #### L 400.0001 ####[facility] [address] [place], [address] OCCULT BLOOD-UR Normal Negative [facility] Comment on above: Order Comment: CLEAN CATCH Result Comment: DUPL ICATE Performed By: #### L 400.0001 ####[facility] [address] [place], [address] pH UR Normal 5.0 - 8.0 [facility] Comment on above: Order Comment: CLEAN CATCH Result Comment: DUPL ICATE Performed By: #### L 400.0001 ####[facility] [address] [place], [address] PROT DIPSTX Normal Negative [facility] Comment on above: Order Comment: CLEAN CATCH Result Comment: DUPL ICATE Performed By: #### L 400.0001 ####[facility] [address] [place], [address] RBC Normal 0-5 [facility] Comment on above: Order Comment: CLEAN CATCH Result Comment: DUPL ICATE Performed By: #### L 400.0001 ####[facility] [address] [place], [address] SP.GR. DIPSTX Normal 1.002-1.03 0 [facility] Comment on above: Order Comment: CLEAN CATCH Result Comment: DUPL ICATE Performed By: #### L 400.0001 ####[facility] [address] [place], [address] UR Preservative Normal [facility] Comment on above: Order Comment: CLEAN CATCH Result Comment: DUPL ICATE Performed By: #### L 400.0001 ####[facility] [address] [place], [address] UROBILI Normal Normal [facility] Comment on above: Order Comment: CLEAN CATCH Result Comment: DUPL ICATE Performed By: #### L 400.0001 ####[facility] [address] [place], [place], [address] WBC Normal 0-5 [facility] Comment on above: Order Comment: CLEAN CATCH Result Comment: DUPL ICATE Performed By: #### L 400.0001 ####[facility] [address] [place], [place], [id number] Urine clarityOrdered By: Jeaneth Carroll on 06-29-2025 Clarity (U) Sl. Cloudy Clear [facility] Urine color determinationOrd ered By: Ngozi Carroll on 06-29-2025 Color (U) Yellow Yellow [facility] Urine glucose detectionOrder ed By: Ngozi Carroll on 06-29-2025 Glucose Ql (U) Normal mg/dl Normal [facility] Urine leukocyte esterase det ection by dipstickOrdered By: Ngozi Carroll on 06-29-2025 Leukocyte esterase Test strip Ql (U) 500 /ul High Negative [facility] Urine pHOrdered By: Ngozi lee on 06-29-2025 pH (U) 6.0 [pH] 5.0 - 8.0 [facility] Urine sediment bacteria coun t by microscopy (number/high power field)Ordered By: Ngozi Carroll on 06-29-2025 Bacteria LM.HPF (Urine sed) [#/Area] 0 /[HPF] None Seen [facility] Urine specific gravity measu rementOrdered By: Ngozi Carroll on 06-29-2025 Specific gravity (U) [Rel density] 1.015 1.002-1.03 0 [facility] Urine urobilinogen measureme ntOrdered By: Ngozi Carroll on 06-29-2025 Urobilinogen Ql (U) Normal mg/dl Normal [facility] White blood cell countOrdere d By: Ngozi Carroll on 06-29-2025 White blood cell count 50-100 SEEN /hpf 0-5 [facility] Absolute lymphocyte countOrd ered By: Ratna Bell on 06-28-2025 Lymphocytes Auto (Unsp spec) [#/Vol] 0.79 10*3/uL Low 0.83-4.51 [facility] Absolute neutrophil countOrd ered By: Ratna Bell on 06-28-2025 Neutrophils (Bld) [#/Vol] 5.6 10*3/uL 2.0-7.7 [facility] Anion gap in Serum or Plasma Ordered By: Ratna Bell on 06-28-2025 Anion gap [Moles/Vol] 11 mmol/L 5-15 [facility] Automated lymphocyte count a s percentage of total leukocytesOrdered By: Ratna Bell on 06-28-2025 Lymphocytes/100 WBC Auto (Unsp spec) 11.1 % Low 19-41 [facility] BUN/creatinine ratioOrdered By: [facility] on 06-28-2025 Urea nitrogen/Creatinine [Mass ratio] 23.7 mg/mg High 10-20 [facility] Basophil percentageOrdered B y: Ratna Bell on 06-28-2025 Basophils/100 WBC (Bld) 0.8 % 0-1 [facility] Bilirubin, totalOrdered By: Ratna Bell on 06-28-2025 Bilirubin [Mass/Vol] 0.25 mg/dL 0.00-1.30 [facility] CBC W/Diff, Automatedon Absolute Lymph 0.79 X10 3/uL Low 0.83-4.51 [facility] Comment on above: Performed By: #### L 504.2610, L501.1400, L100.0100, L500.4050 #### [facility] [address] [place], [address] Absolute Neut 5.6 X10 3/uL Normal 2.0-7.7 [facility] Comment on above: Performed By: #### L 504.2610, L501.1400, L100.0100, L500.4050 #### [facility] [address] [place], [address] Basophils/100 WBC (Bld) 0.8 % Normal 0-1 [facility] Comment on above: Performed By: #### L 504.2610, L501.1400, L100.0100, L500.4050 #### [facility] [address] [place], [address] Eosinophils/100 WBC (Bld) 0.8 % Normal 0-5 [facility] Comment on above: Performed By: #### L 504.2610, L501.1400, L100.0100, L500.4050 #### [facility] [address] [place], [address] Erythrocyte distribution width (RBC) [Ratio] 18.2 % High 11.6-14.6 [facility] Comment on above: Performed By: #### L 504.2610, L501.1400, L100.0100, L500.4050 #### [facility] [address] [place], [address] Hematocrit (Bld) [Volume fraction] 33.1 % Low 37-47 [facility] Comment on above: Performed By: #### L 504.2610, L501.1400, L100.0100, L500.4050 #### [facility] [address] [place], [address] Hemoglobin (Bld) [Mass/Vol] 11.1 g/dL Low 12.0-15.0 [facility] Comment on above: Performed By: #### L 504.2610, L501.1400, L100.0100, L500.4050 #### [facility] [address] [place], [address] IG% 0.300 Normal 0.0-0.9 [facility] Comment on above: Result Comment: IG% - Immature Granulocytes (promyelocytes, myelocytes and metamyelocytes) > 1% indicates that a LEFT SHIFT is Present. Performed By: #### L 504.2610, L501.1400, L100.0100, L500.4050 #### [facility] [address] [place], [address] Lymphocytes/100 WBC (Bld) 11.1 % Low 19-41 [facility] Comment on above: Performed By: #### L 504.2610, L501.1400, L100.0100, L500.4050 #### [facility] [address] [place], [address] MCH (RBC) [Entitic mass] 28.6 pg Normal 27.0-32.0 [facility] Comment on above: Performed By: #### L 504.2610, L501.1400, L100.0100, L500.4050 #### [facility] [address] [place], [address] MCHC (RBC) [Mass/Vol] 33.5 g/dL Normal 32-36 [facility] Comment on above: Performed By: #### L 504.2610, L501.1400, L100.0100, L500.4050 #### [facility] [address] [place], [address] MCV (RBC) [Entitic vol] 85.3 fL Normal 81-99 [facility] Comment on above: Performed By: #### L 504.2610, L501.1400, L100.0100, L500.4050 #### [facility] [address] [place], [address] Monocytes/100 WBC (Bld) 8.5 % Normal 0-10 [facility] Comment on above: Performed By: #### L 504.2610, L501.1400, L100.0100, L500.4050 #### [facility] [address] [place], [address] Neutrophils/100 WBC (Bld) 78.5 % High 47-70 [facility] Comment on above: Performed By: #### L 504.2610, L501.1400, L100.0100, L500.4050 #### [facility] [address] [place], [address] Nucleated RBC (Bld) [#/Vol] 0 10*3/uL Normal 0-5 [facility] Comment on above: Performed By: #### L 504.2610, L501.1400, L100.0100, L500.4050 #### [facility] [address] [place], [address] Platelet mean volume (Bld) [Entitic vol] 10.1 fL Normal 6.2-12.0 [facility] Comment on above: Performed By: #### L 504.2610, L501.1400, L100.0100, L500.4050 #### [facility] [address] [place], [address] Platelets (Bld) [#/Vol] 298 10*3/uL Normal 150-450 [facility] Comment on above: Performed By: #### L 504.2610, L501.1400, L100.0100, L500.4050 #### [facility] [address] [place], [address] RBC (Bld) [#/Vol] 3.88 10*6/uL Low 4.2-5.4 [facility] Comment on above: Performed By: #### L 504.2610, L501.1400, L100.0100, L500.4050 #### [facility] [address] [place] [place], [address] RDW SD 51.5 fl High 35.1-43.9 [facility] Comment on above: Performed By: #### L 504.2610, L501.1400, L100.0100, L500.4050 #### [facility] [address] [place], [address] WBC (Bld) [#/Vol] 7.1 10*3/uL Normal 4.4-11.0 [facility] Comment on above: Performed By: #### L 504.2610, L501.1400, L100.0100, L500.4050 #### [facility] [address] [place], [address] Absolute Neut Normal 2.0-7.7 [facility] Comment on above: Result Comment: Canc elled via OM: [employer] (not [employer]) per Insurance Performed By: #### L 504.2610, L501.1400, L100.0100, L500.4050 #### [facility] [address] [place], [address] Result Comment: DUPL ICATE ORDER HCT Normal 37-47 [facility] Comment on above: Result Comment: Canc elled via OM: [employer] (not [employer]) per Insurance Performed By: #### L 504.2610, L501.1400, L100.0100, L500.4050 #### [facility] [address] [place], [address] Result Comment: DUPL ICATE ORDER HGB Normal 12.0-15.0 [facility] Comment on above: Result Comment: Canc elled via OM: [employer] (not [employer]) per Insurance Performed By: #### L 504.2610, L501.1400, L100.0100, L500.4050 #### [facility] [address] [place], [address] Result Comment: DUPL ICATE ORDER MCH Normal 27.0-32.0 [facility] Comment on above: Result Comment: Canc elled via OM: [employer] (not [employer]) per Insurance Performed By: #### L 504.2610, L501.1400, L100.0100, L500.4050 #### [facility] [address] [place], [address] Result Comment: DUPL ICATE ORDER MCHC Normal 32-36 [facility] Comment on above: Result Comment: Canc elled via OM: [employer] (not [employer]) per Insurance Performed By: #### L 504.2610, L501.1400, L100.0100, L500.4050 #### [facility] [address] [place], [address] Result Comment: DUPL ICATE ORDER MCV Normal 81-99 [facility] Comment on above: Result Comment: Canc elled via OM: [employer] (not [employer]) per Insurance Performed By: #### L 504.2610, L501.1400, L100.0100, L500.4050 #### [facility] [address] [place], [address] Result Comment: DUPL ICATE ORDER NEUT% Normal 47-70 [facility] Comment on above: Result Comment: Canc elled via OM: [employer] (not [employer]) per Insurance Performed By: #### L 504.2610, L501.1400, L100.0100, L500.4050 #### [facility] [address] [place], [address] Result Comment: DUPL ICATE ORDER PLT Normal 150-450 [facility] Comment on above: Result Comment: Canc elled via OM: [employer] (not [employer]) per Insurance Performed By: #### L 504.2610, L501.1400, L100.0100, L500.4050 #### [facility] [address] [place], [address] Result Comment: DUPL ICATE ORDER RBC Normal 4.2-5.4 [facility] Comment on above: Result Comment: Canc elled via OM: [employer] (not [employer]) per Insurance Performed By: #### L 504.2610, L501.1400, L100.0100, L500.4050 #### [facility] [address] [place], [place], [address] Result Comment: DUPL ICATE ORDER RDW CV Normal 11.6-14.6 [facility] Comment on above: Result Comment: Canc elled via OM: [employer] (not [employer]) per Insurance Performed By: #### L 504.2610, L501.1400, L100.0100, L500.4050 #### [facility] [address] [place], [place], [address] Result Comment: DUPL ICATE ORDER RDW SD Normal 35.1-43.9 [facility] Comment on above: Result Comment: Canc elled via OM: [employer] (not [employer]) per Insurance Performed By: #### L 504.2610, L501.1400, L100.0100, L500.4050 #### [facility] [address] [place], [place], [address] Result Comment: DUPL ICATE ORDER WBC Normal 4.4-11.0 [facility] Comment on above: Result Comment: Canc elled via OM: [employer] (not [employer]) per Insurance Performed By: #### L 504.2610, L501.1400, L100.0100, L500.4050 #### [facility] [address] [place], [place], [id number] Result Comment: DUPL ICATE ORDER Carbon dioxide, total [Moles /volume] in Central venous bloodOrdered By: Ratna Bell on 06-28-2025 CO2 [Moles/Vol] 25.0 mmol/L 21.0-32.0 [facility] Chloride assayOrdered By: Prosper Bell on 06-28-2025 Chloride [Moles/Vol] 101 mmol/L 98-108 [facility] Comprehensive Metabolic Prof ilon 06-28-2025 Albumin [Mass/Vol] 4.2 g/dL Normal 3.4-4.8 [facility] Comment on above: Performed By: #### L 504.2610, L501.1400, L100.0100, L500.4050 #### [facility] [address] [place], [address] Albumin/Globulin [Mass ratio] 1.8 {ratio} Normal 0.9-2.4 [facility] Comment on above: Performed By: #### L 504.2610, L501.1400, L100.0100, L500.4050 #### [facility] [address] [place], [address] ALK PHOS 68 U/L Normal 35-104 [facility] Comment on above: Performed By: #### L 504.2610, L501.1400, L100.0100, L500.4050 #### [facility] [address] [place], [address] ALT [Catalytic activity/Vol] 20 U/L Normal <=34 [facility] Comment on above: Performed By: #### L 504.2610, L501.1400, L100.0100, L500.4050 #### [facility] [address] [place], [address] AST [Catalytic activity/Vol] 19 U/L Normal <=31 [facility] Comment on above: Performed By: #### L 504.2610, L501.1400, L100.0100, L500.4050 #### [facility] [address] [place], [address] Bilirubin [Mass/Vol] 0.25 mg/dL Normal 0.00-1.30 [facility] Comment on above: Performed By: #### L 504.2610, L501.1400, L100.0100, L500.4050 #### [facility] [address] [place], [address] BUN/CRE 23.7 RATIO High 10-20 [facility] Comment on above: Performed By: #### L 504.2610, L501.1400, L100.0100, L500.4050 #### [facility] [address] [place], [address] Calcium [Mass/Vol] 9.5 mg/dL Normal 7.6-11.0 [facility] Comment on above: Performed By: #### L 504.2610, L501.1400, L100.0100, L500.4050 #### [facility] [address] [place], [address] Chloride [Moles/Vol] 101 mmol/L Normal 98-108 [facility] Comment on above: Performed By: #### L 504.2610, L501.1400, L100.0100, L500.4050 #### [facility] [address] [place], [address] CO2 [Moles/Vol] 25.0 mmol/L Normal 21.0-32.0 [facility] Comment on above: Performed By: #### L 504.2610, L501.1400, L100.0100, L500.4050 #### [facility] [address] [place], [address] Creatinine [Mass/Vol] 0.49 mg/dL Low 0.70-1.20 [facility] Comment on above: Performed By: #### L 504.2610, L501.1400, L100.0100, L500.4050 #### [facility] [address] [place], [address] ECRCL 54.94 ml/min Normal 50-250 [facility] Comment on above: Performed By: #### L 504.2610, L501.1400, L100.0100, L500.4050 #### [facility] [address] [place], [address] GAP 11 Normal 5-15 [facility] Comment on above: Performed By: #### L 504.2610, L501.1400, L100.0100, L500.4050 #### [facility] [address] [place], [address] GFR/1.73 sq M.predicted among non-blacks MDRD (S/P/Bld) [Vol rate/Area] 95 mL/min/{1.73_m2} Normal >60 [facility] Comment on above: Result Comment: mL/m in/1.73m2 CKD-EPI Creatinine Equation (2020) Performed By: #### L 504.2610, L501.1400, L100.0100, L500.4050 #### [facility] [address] [place], [address] Globulin (S) [Mass/Vol] 2.3 g/dL Normal 2.2-4.2 [facility] Comment on above: Performed By: #### L 504.2610, L501.1400, L100.0100, L500.4050 #### [facility] [address] [place], [address] Glucose [Mass/Vol] 112 mg/dL High 70-99 [facility] Comment on above: Performed By: #### L 504.2610, L501.1400, L100.0100, L500.4050 #### [facility] [address] [place], [address] Potassium [Moles/Vol] 4.3 mmol/L Normal 3.3-5.1 [facility] Comment on above: Performed By: #### L 504.2610, L501.1400, L100.0100, L500.4050 #### [facility] [address] [place], [address] Sodium [Moles/Vol] 137 mmol/L Normal 133-145 [facility] Comment on above: Performed By: #### L 504.2610, L501.1400, L100.0100, L500.4050 #### [facility] [address] [place], [address] T PROT 6.6 g/dL Normal 5.9-8.4 [facility] Comment on above: Performed By: #### L 504.2610, L501.1400, L100.0100, L500.4050 #### [facility] [address] [place], [address] Urea nitrogen [Mass/Vol] 12 mg/dL Normal 4-19 [facility] Comment on above: Performed By: #### L 504.2610, L501.1400, L100.0100, L500.4050 #### [facility] [address] [place], [address] ALB Normal 3.4-4.8 [facility] Comment on above: Result Comment: Canc elled via OM: [employer] (not [employer]) per Insurance Performed By: #### L 504.2610, L501.1400, L100.0100, L500.4050 #### [facility] [address] [place], [address] ALK PHOS Normal 35-104 [facility] Comment on above: Result Comment: Canc elled via OM: [employer] (not [employer]) per Insurance Performed By: #### L 504.2610, L501.1400, L100.0100, L500.4050 #### [facility] [address] [place], [address] ALT Normal <=34 [facility] Comment on above: Result Comment: Canc elled via OM: [employer] (not [employer]) per Insurance Performed By: #### L 504.2610, L501.1400, L100.0100, L500.4050 #### [facility] [address] [place], [address] AST Normal <=31 [facility] Comment on above: Result Comment: Canc elled via OM: [employer] (not [employer]) per Insurance Performed By: #### L 504.2610, L501.1400, L100.0100, L500.4050 #### [facility] [address] [place], [address] BUN Normal 4-19 [facility] Comment on above: Result Comment: Canc elled via OM: [employer] (not [employer]) per Insurance Performed By: #### L 504.2610, L501.1400, L100.0100, L500.4050 #### [facility] [address] [place], [address] BUN/CRE Normal 10-20 [facility] Comment on above: Result Comment: Canc elled via OM: [employer] (not [employer]) per Insurance Performed By: #### L 504.2610, L501.1400, L100.0100, L500.4050 #### [facility] [address] [place], [address] Calcium Normal 7.6-11.0 [facility] Comment on above: Result Comment: Canc elled via OM: [employer] (not [employer]) per Insurance Performed By: #### L 504.2610, L501.1400, L100.0100, L500.4050 #### [facility] [address] [place], [address] CL Normal 98-108 [facility] Comment on above: Result Comment: Canc elled via OM: [employer] (not [employer]) per Insurance Performed By: #### L 504.2610, L501.1400, L100.0100, L500.4050 #### [facility] [address] [place], [address] CO2 Normal 21.0-32.0 [facility] Comment on above: Result Comment: Canc elled via OM: [employer] (not [employer]) per Insurance Performed By: #### L 504.2610, L501.1400, L100.0100, L500.4050 #### [facility] [address] [place], [address] CREAT,SERUM Normal 0.70-1.20 [facility] Comment on above: Result Comment: Canc elled via OM: [employer] (not [employer]) per Insurance Performed By: #### L 504.2610, L501.1400, L100.0100, L500.4050 #### [facility] [address] [place], [address] eGFR Normal >60 [facility] Comment on above: Result Comment: Canc elled via OM: [employer] (not [employer]) per Insurance Performed By: #### L 504.2610, L501.1400, L100.0100, L500.4050 #### [facility] [address] [place], [address] GAP Normal 5-15 [facility] Comment on above: Result Comment: Canc elled via OM: [employer] (not [employer]) per Insurance Performed By: #### L 504.2610, L501.1400, L100.0100, L500.4050 #### [facility] [address] [place], [address] GLU Normal 70-99 [facility] Comment on above: Result Comment: Canc elled via OM: [employer] (not [employer]) per Insurance Performed By: #### L 504.2610, L501.1400, L100.0100, L500.4050 #### [facility] [address] [place], [address] Potassium Normal 3.3-5.1 [facility] Comment on above: Result Comment: Canc elled via OM: [employer] (not [employer]) per Insurance Performed By: #### L 504.2610, L501.1400, L100.0100, L500.4050 #### [facility] [address] [place], [address] T BILI Normal 0.00-1.30 [facility] Comment on above: Result Comment: Canc elled via OM: [employer] (not [employer]) per Insurance Performed By: #### L 504.2610, L501.1400, L100.0100, L500.4050 #### [facility] [address] [place], [address] T PROT Normal 5.9-8.4 [facility] Comment on above: Result Comment: Canc elled via OM: [employer] (not [employer]) per Insurance Performed By: #### L 504.2610, L501.1400, L100.0100, L500.4050 #### [facility] [address] [place], [address] Comprehensive Metabolic Profil Normal 133-145 [facility] Comment on above: Result Comment: Canc elled via OM: [employer] (not [employer]) per Insurance Performed By: #### L 504.2610, L501.1400, L100.0100, L500.4050 #### [facility] [address] [place], [address] Eosinophil percentageOrdered By: Ratna Bell on 06-28-2025 Eosinophils/100 WBC (Bld) 0.8 % 0-5 [facility] Erythrocyte distribution wid th ratioOrdered By: Ratna Bell on 06-28-2025 Erythrocyte distribution width (RBC) [Ratio] 18.2 % High 11.6-14.6 [facility] Erythrocyte distribution wid th standard deviationOrdered By: Ratna Bell on 06-28-2025 Erythrocyte distribution width (RBC) [Ratio] 51.5 fl High 35.1-43.9 [facility] Glomerular filtration rate ( GFR) estimation/1.73 sq m using serum, plasma, or whole bOrdered By: Ratna Bell on 06-28-2025 GFR/1.73 sq M.predicted among non-blacks MDRD (S/P/Bld) [Vol rate/Area] 95 mL/min/{1.73_m2} >60 [facility] Comment on above: mL/min/1.73m2 CKD-EP I Creatinine Equation (2020) Hematocrit Auto (Bld) [Volum e fraction]Ordered By: Ratna Bell on 06-28-2025 Hematocrit (Bld) [Volume fraction] 33.1 % Low 37-47 [facility] Hemoglobin measurementOrdere d By: Ratna Bell on 06-28-2025 Hemoglobin (Bld) [Mass/Vol] 11.1 g/dL Low 12.0-15.0 [facility] Immature granulocytes/100 WB C Auto (Bld)Ordered By: Ratna Bell on 06-28-2025 Immature granulocytes/100 WBC (Bld) 0.300 % 0.0-0.9 [facility] Comment on above: IG% - Immature Granu locytes (promyelocytes, myelocytes and metamyelocytes) > 1% indicates that a LEFT SHIFT is Present. LDHon 06-28-2025 LDH 200 U/L Normal 84-246 [facility] Comment on above: Order Comment: 1 Performed By: #### L 504.2610, L501.1400, L100.0100, L500.4050 #### [facility] [address] [place], [address] Laboratory - Chemistry and C hemistry - challengeOrdered By: [facility] 06-[facility]-2025 AST [Catalytic activity/Vol] 19 U/L <32 [facility] Lactate dehydrogenase (LDH) measurementOrdered By: [facility] 06-28-2025 LDH [Catalytic activity/Vol] 200 U/L 84-246 [facility] MCV (mean corpuscular volume ) determinationOrdered By: Ratna Bell on 06-28-2025 MCV (RBC) [Entitic vol] 85.3 fL 81-99 [facility] Magnesiumon 06-28-2025 Magnesium [Mass/Vol] 2.1 mg/dL Normal 1.5-2.2 [facility] Comment on above: Performed By: #### L 504.2610, L501.1400, L100.0100, L500.4050 #### [facility] [address] [place], [place], [id number] Magnesium measurement (mass/ volume)Ordered By: Ratna Bell on 06-28-2025 Magnesium (Unsp spec) [Mass/Vol] 2.1 mg/dL 1.5-2.2 [facility] Mean corpuscular hemoglobin (MCH) determinationOrdered By: [facility] on 06-28-2025 MCH (RBC) [Entitic mass] 28.6 pg 27.0-32.0 [facility] Mean corpuscular hemoglobin concentration (MCHC) determinationOrdered By: [facility] Bell on 06-28-2025 MCHC (RBC) [Mass/Vol] 33.5 g/dL 32-36 [facility] Mean platelet volume determi nationOrdered By: [facility] Arabella on 06-28-2025 Platelet mean volume (Bld) [Entitic vol] 10.1 fL 6.2-12.0 [facility] Monocyte percentageOrdered B y: [facility] Arabella on 06-28-2025 Monocytes/100 WBC (Bld) 8.5 % 0-10 [facility] Neutrophil percentageOrdered By: [facility] on 06[facility]28-2025 Neutrophils/100 WBC (Bld) 78.5 % High 47-70 [facility] Nucleated red blood cell per centageOrdered By: [facility] Arabella on 06-28-2025 Nucleated RBC/100 WBC (Bld) [Ratio] 0 % 0-5 [facility] Oncology Visit Reporton Oncology Visit Report [facility] [address] [place] [address] OFFICE VISIT Date of Service: 06/28/25816 MR#: [id number] Acct: [id number] Name: JULIA PLASCENCIA Rep #: [id number] : 1945 From: Ngozi Carroll NP [employer] ATTENDANT -C Age/Sex: 80/F Location: [facility] Status: Signed HPI Subjective Date of Service 06/28/25 Chief Complaint DLBCL on treatment History of Present Illness 80-year-old female who felt a painless lump in the left breast in February 2025 and loss 20 pounds of weight despite a preserved appetite. April 04, 2025 diagnostic mammogram: IMPRESSION: Abnormal intramammary lymph node in the left breast at 2 o'clock 9 cm from the nipple. April 04, 2025 breast ultrasound: IMPRESSION: Abnormal intramammary lymph node in the left breast at 2 o'clock 9 cm from the nipple. April 10, 2025 Left breast, mass/lymph node, breast, core biopsy: - Lymphoid tissue negative for carcinoma ??? see note and Comment. - Mature adipose tissue. - No breast epithelium observed. Note: This case will be sent to [facility] for formal consultation with the hematopathology division of the Pathology Department, to rule out a lymphoproliferative disorder. A separate report from [facility] will follow. IHCs were obtained and will be reported by the individual pension consultant pathologist. COMMENT: A portion of the tissue was sent in RPMI for flow cytometry to [facility]. The flow cytometry showed ???no immunophenotypic evidence of an abnormal population of B lymphocytes or T lymphocytes. Few B-cells detected???. Diagnosis provided by Dr Ashlyn Baeza ([facility] hematopathology division) This addendum is added to incorporate an outside pathology consultation report. The case was examined at [facility] by Dr. Monte (#[id number]) and the following diagnosis was rendered. A. 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 Diagnosis Comment: As described in detail in the synoptic report below, the assessment is somewhat challenging due to the very scant nature of the specimen. However, overall, there is convincing evidence of a neoplastic large B-cell infiltrate expressing germinal center associated markers (BCL6, CD10) and showing a diffuse infiltrative pattern not associated with follicular dendritic cell meshworks. The findings are consistent with an aggressive B-cell lymphoma. FISH studies have been ordered, and the results will be reported in an addendum. Addendum: No rearrangements of BCL2, BCL6 or MYC genes are detected by FISH. 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 May 16, 2025 PET/CT initial staging: IMPRESSION: 1. Multiple enlarged hypermetabolic mediastinal, right axillary, retroperitoneal, mesenteric, and left pelvic lymph nodes consistent with lymphoma. There is a hypermetabolic nodule in the spleen consistent with lymphoma. Treatment summary and response: R-CHOP June 07, 2025 Interval History The patient is presenting to clinic accompanied by adult daughter for an evaluation anticipating she will begin c2 RCHOP. Overall, reports she tolerated c1 remarkably well, denies decreased appetite, nausea, constipation, numbness tingling, shortness of breath, abdominal pain, swelling or pain of her extremities and any episodes of bleeding or abnormal bruising. Noted mild dysuria yesterday that is resolved today. [facility] Medical History Encounter for antineoplastic chemotherapy and immunotherapy Encounter for education DLBCL (diffuse large B cell lymphoma) Hypothyroidism Wears partial dentures Wears glasses Post-menopausal Non-smoker [...] 3-4 times per week seatbelt use: always ROS ROS Narrative Negative except as documented in the interval HPI Intake Vital Signs 06/07/25 08:13 11 (more content not included)... Normal [facility] Phosphoruson 06-28-2025 Phosphate [Mass/Vol] 4.3 mg/dL Normal 2.7-4.5 [facility] Comment on above: Performed By: #### L 504.2610, L501.1400, L100.0100, L500.4050 #### [facility] [address] [place], [address] Platelet countOrdered By: Prosper Bell on 06-28-2025 Platelets (Bld) [#/Vol] 298 10*3/uL 150-450 [facility] Potassium measurement (mass/ volume)Ordered By: Ratna Bell on 06-28-2025 Potassium (Unsp spec) [Mass/Vol] 4.3 mmol/L 3.3-5.1 [facility] RBC Auto (Bld) [#/Vol]Ordere d By: Ratna Bell on 06-28-2025 RBC (Bld) [#/Vol] 3.88 10*6/uL Low 4.2-5.4 [facility] Serum creatinine measurement (mass/volume)Ordered By: Ratna Bell on 06-28-2025 Creatinine [Mass/Vol] 0.49 mg/dL Low 0.70-1.20 [facility] Serum globulin measurementOr dered By: Ratna Bell on 06-28-2025 Globulin (S) [Mass/Vol] 2.3 g/dL 2.2-4.2 [facility] Serum glucose measurement (m ass/volume)Ordered By: Ratna Bell on 06-28-2025 Glucose [Mass/Vol] 112 mg/dL High 70-99 [facility] Serum or plasma alanine morejon otransferase (ALT) measurementOrdered By: Ratna Bell on 06-28-2025 ALT [Catalytic activity/Vol] 20 U/L <35 [facility] Serum or plasma albumin arya urement (mass/volume)Ordered By: Ratna Bell on 06-28-2025 Albumin [Mass/Vol] 4.2 g/dL 3.4-4.8 [facility] Serum or plasma albumin/glob ulin mass ratioOrdered By: Ratna Bell on 06-28-2025 Albumin/Globulin [Mass ratio] 1.8 {ratio} 0.9-2.4 [facility] Serum or plasma alkaline altagracia sphatase measurementOrdered By: Ratna Bell on 06-28-2025 ALP [Catalytic activity/Vol] 68 U/L 35-104 [facility] Serum or plasma calcium arya urement (mass/volume)Ordered By: Ratna Bell on 06-28-2025 Calcium [Mass/Vol] 9.5 mg/dL 7.6-11.0 [facility] Serum or plasma urea nitroge n measurement (mass/volume)Ordered By: Ratna Bell on 06-28-2025 Urea nitrogen [Mass/Vol] 12 mg/dL 4-19 [facility] Serum or plasma uric acid me asurement (mass/volume)Ordered By: Ratna Bell on 06-28-2025 Urate [Mass/Vol] 5.2 mg/dL 2.6-6.0 [facility] Comment on above: The drugs N-Acetylcy steine and Metamizole may falsely depress this assay. Sodium levelOrdered By: Rob Bell on 06-28-2025 Sodium [Moles/Vol] 137 mmol/L 133-145 [facility] Total proteinOrdered By: Dion Bell on 06-28-2025 Protein [Mass/Vol] 6.6 g/dL 5.9-8.4 [facility] Uric Acidon 06-28-2025 URIC 5.2 mg/dL Normal 2.6-6.0 [facility] Comment on above: Result Comment: The drugs N-Acetylcysteine and Metamizole may falsely depress this assay. Performed By: #### L 504.2610, L501.1400, L100.0100, L500.4050 #### [facility] [address] [place] [address], [id number] White blood cell (WBC) count Ordered By: Ratna Bell on 06-28-2025 WBC (Bld) [#/Vol] 7.1 10*3/uL 4.4-11.0 [facility] Absolute lymphocyte countOrd ered By: Ngozi Carroll on 06-12-2025 Lymphocytes Auto (Unsp spec) [#/Vol] 0.73 10*3/uL Low 0.83-4.51 [facility] Absolute neutrophil countOrd ered By: Ngozi Carroll on 06-12-2025 Neutrophils (Bld) [#/Vol] 9.8 10*3/uL High 2.0-7.7 [facility] Anion gap in Serum or Plasma Ordered By: Ngozi Carly on 06-12-2025 Anion gap [Moles/Vol] 10 mmol/L - [facility] BUN/creatinine ratioOrdered By: Ngozi Carly on 06-12-2025 Urea nitrogen/Creatinine [Mass ratio] 41.3 mg/mg High 06-12 [facility] Bilirubin, totalOrdered By: Ngozi Carly on 06-12-2025 Bilirubin [Mass/Vol] 0.41 mg/dL 0.00-1.30 [facility] Blood lymphocytes/100 leukoc ytesOrdered By: Ngozi Carly on 06-12-2025 Lymphocytes/100 WBC (Bld) 7 % Low 19-41 [facility] Blood segmented neutrophils/ 100 leukocytesOrdered By: Ngozi Carly on 06-12-2025 Segmented neutrophils/100 WBC (Bld) 93 % High 47-70 [facility] CBC W/Diff, Automatedon 05-25 Absolute Lymph 0.73 X10 3/uL Low 0.83-4.51 [facility] Comment on above: Performed By: #### L 504.2610, L501.1400, L100.0100, L500.4050 #### [facility] [address] [place], [address] Absolute Neut 9.8 X10 3/uL High 2.0-7.7 [facility] Comment on above: Performed By: #### L 504.2610, L501.1400, L100.0100, L500.4050 #### [facility] [address] [place], [address] Carbon dioxide, total [Moles /volume] in Central venous bloodOrdered By: Ngozi Carly on 06-12-2025 CO2 [Moles/Vol] 26.9 mmol/L 21.0-32.0 [facility] Chloride assayOrdered By: Ty ra Carly on 06-12-2025 Chloride [Moles/Vol] 102 mmol/L 98-108 [facility] Comprehensive Metabolic Prof ilon 06-12-2025 Albumin [Mass/Vol] 3.8 g/dL Normal 3.4-4.8 [facility] Comment on above: Performed By: #### L 504.2610, L501.1400, L100.0100, L500.4050 #### [facility] [address] [place], [address] Albumin/Globulin [Mass ratio] 1.5 {ratio} Normal 0.9-2.4 [facility] Comment on above: Performed By: #### L 504.2610, L501.1400, L100.0100, L500.4050 #### [facility] [address] [place], [address] ALK PHOS 94 U/L Normal 35-104 [facility] Comment on above: Performed By: #### L 504.2610, L501.1400, L100.0100, L500.4050 #### [facility] [address] [place], [address] ALT [Catalytic activity/Vol] 65 U/L High <=34 [facility] Comment on above: Performed By: #### L 504.2610, L501.1400, L100.0100, L500.4050 #### [facility] [address] [place], [address] AST [Catalytic activity/Vol] 22 U/L Normal <=31 [facility] Comment on above: Performed By: #### L 504.2610, L501.1400, L100.0100, L500.4050 #### [facility] [address] [place], [address] Bilirubin [Mass/Vol] 0.41 mg/dL Normal 0.00-1.30 [facility] Comment on above: Performed By: #### L 504.2610, L501.1400, L100.0100, L500.4050 #### [facility] [address] [place], [address] BUN/CRE 41.3 RATIO High 10-20 [facility] Comment on above: Performed By: #### L 504.2610, L501.1400, L100.0100, L500.4050 #### [facility] [address] [place], [address] Calcium [Mass/Vol] 9.3 mg/dL Normal 7.6-11.0 [facility] Comment on above: Performed By: #### L 504.2610, L501.1400, L100.0100, L500.4050 #### [facility] [address] [place], [address] Chloride [Moles/Vol] 102 mmol/L Normal 98-108 [facility] Comment on above: Performed By: #### L 504.2610, L501.1400, L100.0100, L500.4050 #### [facility] [address] [place] [place], [address] CO2 [Moles/Vol] 26.9 mmol/L Normal 21.0-32.0 [facility] Comment on above: Performed By: #### L 504.2610, L501.1400, L100.0100, L500.4050 #### [facility] [address] [place], [address] Creatinine [Mass/Vol] 0.42 mg/dL Low 0.70-1.20 [facility] Comment on above: Performed By: #### L 504.2610, L501.1400, L100.0100, L500.4050 #### [facility] [address] [place], [address] ECRCL 55.10 ml/min Normal 50-250 [facility] Comment on above: Performed By: #### L 504.2610, L501.1400, L100.0100, L500.4050 #### [facility] [address] [place] [place], [address] GAP 10 Normal 5-15 [facility] Comment on above: Performed By: #### L 504.2610, L501.1400, L100.0100, L500.4050 #### [facility] [address] [place], [address] GFR/1.73 sq M.predicted among non-blacks MDRD (S/P/Bld) [Vol rate/Area] 98 mL/min/{1.73_m2} Normal >60 [facility] Comment on above: Result Comment: mL/m in/1.73m2 CKD-EPI Creatinine Equation (2020) Performed By: #### L 504.2610, L501.1400, L100.0100, L500.4050 #### [facility] [address] [place], [address] Globulin (S) [Mass/Vol] 2.4 g/dL Normal 2.2-4.2 [facility] Comment on above: Performed By: #### L 504.2610, L501.1400, L100.0100, L500.4050 #### [facility] [address] [place], [address] Glucose [Mass/Vol] 128 mg/dL High 70-99 [facility] Comment on above: Performed By: #### L 504.2610, L501.1400, L100.0100, L500.4050 #### [facility] [address] [place], [address] Potassium [Moles/Vol] 3.6 mmol/L Normal 3.3-5.1 [facility] Comment on above: Performed By: #### L 504.2610, L501.1400, L100.0100, L500.4050 #### [facility] [address] [place], [address] Sodium [Moles/Vol] 139 mmol/L Normal 133-145 [facility] Comment on above: Performed By: #### L 504.2610, L501.1400, L100.0100, L500.4050 #### [facility] [address] [place], [address] T PROT 6.2 g/dL Normal 5.9-8.4 [facility] Comment on above: Performed By: #### L 504.2610, L501.1400, L100.0100, L500.4050 #### [facility] [address] [place], [address] Urea nitrogen [Mass/Vol] 17 mg/dL Normal 4-19 [facility] Comment on above: Performed By: #### L 504.2610, L501.1400, L100.0100, L500.4050 #### [facility] [address] [place], [address] Erythrocyte distribution wid th ratioOrdered By: Ngozi Carroll on 06-12-2025 Erythrocyte distribution width (RBC) [Ratio] 14.0 % 11.6-14.6 [facility] Erythrocyte distribution wid th standard deviationOrdered By: Ngozi Carroll on 06-12-2025 Erythrocyte distribution width (RBC) [Ratio] 42.7 fl 35.1-43.9 [facility] Glomerular filtration rate ( GFR) estimation/1.73 sq m using serum, plasma, or whole bOrdered By: Ngozi Carroll on 06-12-2025 GFR/1.73 sq M.predicted among non-blacks MDRD (S/P/Bld) [Vol rate/Area] 98 mL/min/{1.73_m2} >60 [facility] Comment on above: mL/min/1.73m2 CKD-EP I Creatinine Equation (2020) Hematocrit Auto (Bld) [Volum e fraction]Ordered By: Ngozi Carroll on 06-12-2025 Hematocrit (Bld) [Volume fraction] 28.1 % Low 37-47 [facility] Hemoglobin measurementOrdere d By: Ngozi Carroll on 06-12-2025 Hemoglobin (Bld) [Mass/Vol] 9.3 g/dL Low 12.0-15.0 [facility] LDHon 06-12-2025 LDH 229 U/L Normal 84-246 [facility] Comment on above: Order Comment: 1 Performed By: #### L 504.2610, L501.1400, L100.0100, L500.4050 #### [facility] [address] [place], [address] Laboratory - Chemistry and C hemistry - challengeOrdered By: Ngozi Carroll on 06-12-2025 AST [Catalytic activity/Vol] 22 U/L <32 [facility] Lactate dehydrogenase (LDH) measurementOrdered By: Ngozi Carroll on 06-12-2025 LDH [Catalytic activity/Vol] 229 U/L 84-246 [facility] MCV (mean corpuscular volume ) determinationOrdered By: Ngozi Carroll on 06-12-2025 MCV (RBC) [Entitic vol] 83.1 fL 81-99 [facility] Mean corpuscular hemoglobin (MCH) determinationOrdered By: Ngozi Carroll on 06-12-2025 MCH (RBC) [Entitic mass] 27.5 pg 27.0-32.0 [facility] Mean corpuscular hemoglobin concentration (MCHC) determinationOrdered By: Ngozi Carroll on 06-12-2025 MCHC (RBC) [Mass/Vol] 33.1 g/dL 32-36 [facility] Mean platelet volume determi nationOrdered By: Ngozi Carroll on 06-12-2025 Platelet mean volume (Bld) [Entitic vol] 10.4 fL 6.2-12.0 [facility] Oncology Visit Reporton 05-25 Oncology Visit Report [facility] [place] [facility] [address] [place] [address] OFFICE VISIT Date of Service: 06/12/25 1010 MR#: [id number] Acct: [id number] Name: MARKUSJULIA SAUCEDA Rep #: [id number] : 1945 From: Ratna Bell MD Age/Sex: 80/F Location: [facility] Status: Signed HPI Subjective Date of Service 06/12/25 Chief Complaint DLBCL on treatment History of Present Illness 80-year-old female who felt a painless lump in the left breast in February 2025 and loss 20 pounds of weight despite a preserved appetite. April 04, 2025 diagnostic mammogram: IMPRESSION: Abnormal intramammary lymph node in the left breast at 2 o'clock 9 cm from the nipple. April 04, 2025 breast ultrasound: IMPRESSION: Abnormal intramammary lymph node in the left breast at 2 o'clock 9 cm from the nipple. April 10, 2025 Left breast, mass/lymph node, breast, core biopsy: - Lymphoid tissue negative for carcinoma ??? see note and Comment. - Mature adipose tissue. - No breast epithelium observed. Note: This case will be sent to [facility] for formal consultation with the hematopathology division of the Pathology Department, to rule out a lymphoproliferative disorder. A separate report from [facility] will follow. IHCs were obtained and will be reported by the individual pension consultant pathologist. COMMENT: A portion of the tissue was sent in RPMI for flow cytometry to [facility]. The flow cytometry showed ???no immunophenotypic evidence of an abnormal population of B lymphocytes or T lymphocytes. Few B-cells detected???. Diagnosis provided by Dr Ashlyn Baeza ([facility] hematopathology division) This addendum is added to incorporate an outside pathology consultation report. The case was examined at [facility] by Dr. Monte (#[id number]) and the following diagnosis was rendered. A. 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 Diagnosis Comment: As described in detail in the synoptic report below, the assessment is somewhat challenging due to the very scant nature of the specimen. However, overall, there is convincing evidence of a neoplastic large B-cell infiltrate expressing germinal center associated markers (BCL6, CD10) and showing a diffuse infiltrative pattern not associated with follicular dendritic cell meshworks. The findings are consistent with an aggressive B-cell lymphoma. FISH studies have been ordered, and the results will be reported in an addendum. Addendum: No rearrangements of BCL2, BCL6 or MYC genes are detected by FISH. 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 May 16, 2025 PET/CT initial staging: IMPRESSION: 1. Multiple enlarged hypermetabolic mediastinal, right axillary, retroperitoneal, mesenteric, and left pelvic lymph nodes consistent with lymphoma. There is a hypermetabolic nodule in the spleen consistent with lymphoma. Treatment summary and response: R-CHOP June 07, 2025 [facility] Medical History Encounter for antineoplastic chemotherapy and immunotherapy Encounter for education DLBCL (diffuse large B cell lymphoma) Hypothyroidism Wears partial dentures Wears glasses Post-menopausal Non-smoker [...] 3-4 times per week seatbelt use: always ROS Constitutional Constitutional: Reports fatigue; Denies anorexia, fever(s), night sweats or weight loss Eyes Eyes: Reports systems reviewed and no addt'l complaints, except as documented ENT HEENT: Reports systems reviewed and no addt'l complaints, except as documented; Denies mouth lesions Cardiovascular Cardiovascular: Reports systems reviewed and no addt'l complaints, except as documented; Denies chest pain with activity or edema Respiratory/Chest Respiratory/Chest: Reports systems reviewed and no addt'l complaints, except as documented; Denie (more content not included)... Normal [facility] Platelet countOrdered By: Nico Carroll on 06-12-2025 Platelets (Bld) [#/Vol] 142 10*3/uL Low 150-450 [facility] Potassium measurement (mass/ volume)Ordered By: Ngozi Carroll on 06-12-2025 Potassium (Unsp spec) [Mass/Vol] 3.6 mmol/L 3.3-5.1 [facility] RBC Auto (Bld) [#/Vol]Ordere d By: Ngozi Carroll on 06-12-2025 RBC (Bld) [#/Vol] 3.38 10*6/uL Low 4.2-5.4 [facility] Serum creatinine measurement (mass/volume)Ordered By: Ngozi Carroll on 06-12-2025 Creatinine [Mass/Vol] 0.42 mg/dL Low 0.70-1.20 [facility] Serum globulin measurementOr dered By: Ngozi Carroll on 06-12-2025 Globulin (S) [Mass/Vol] 2.4 g/dL 2.2-4.2 [facility] Serum glucose measurement (m ass/volume)Ordered By: Ngozi Carroll on 06-12-2025 Glucose [Mass/Vol] 128 mg/dL High 70-99 [facility] Serum or plasma alanine morejon otransferase (ALT) measurementOrdered By: Ngozi Carroll on 06-12-2025 ALT [Catalytic activity/Vol] 65 U/L High <35 [facility] Serum or plasma albumin arya urement (mass/volume)Ordered By: Ngozi Carroll on 06-12-2025 Albumin [Mass/Vol] 3.8 g/dL 3.4-4.8 [facility] Serum or plasma albumin/glob ulin mass ratioOrdered By: Ngozi Carroll on 06-12-2025 Albumin/Globulin [Mass ratio] 1.5 {ratio} 0.9-2.4 [facility] Serum or plasma alkaline altagracia sphatase measurementOrdered By: Ngozi Carroll on 06-12-2025 ALP [Catalytic activity/Vol] 94 U/L 35-104 [facility] Serum or plasma calcium arya urement (mass/volume)Ordered By: Ngozi Carroll on 06-12-2025 Calcium [Mass/Vol] 9.3 mg/dL 7.6-11.0 [facility] Serum or plasma urea nitroge n measurement (mass/volume)Ordered By: Ngozi Carroll on 06-12-2025 Urea nitrogen [Mass/Vol] 17 mg/dL 4-19 [facility] Serum or plasma uric acid me asurement (mass/volume)Ordered By: Ngozi Carroll on 06-12-2025 Urate [Mass/Vol] 3.2 mg/dL 2.6-6.0 [facility] Comment on above: The drugs N-Acetylcy steine and Metamizole may falsely depress this assay. Sodium levelOrdered By: Ngozi Carroll on 06-12-2025 Sodium [Moles/Vol] 139 mmol/L 133-145 [facility] Total cell countOrdered By: Ngozi Carroll on 06-12-2025 Cells counted Mol[employer] (Bld/Tiss) [#] 100 MANUAL DIFF [facility] Total proteinOrdered By: Jeaneth Carroll on 06-12-2025 Protein [Mass/Vol] 6.2 g/dL 5.9-8.4 [facility] Uric Acidon 06-12-2025 URIC 3.2 mg/dL Normal 2.6-6.0 [facility] Comment on above: Result Comment: The drugs N-Acetylcysteine and Metamizole may falsely depress this assay. Performed By: #### L 504.2610, L501.1400, L100.0100, L500.4050 #### [facility] [address] [place] [address]. [place], [address] White blood cell (WBC) count Ordered By: Ngozi Carroll on 06-12-2025 WBC (Bld) [#/Vol] 10.5 10*3/uL 4.4-11.0 [facility] Automated lymphocyte count a s percentage of total leukocytesOrdered By: Ratna Bell on 06-07-2025 Lymphocytes/100 WBC Auto (Unsp spec) 18.8 % Low 19-41 [facility] Basophil percentageOrdered B y: Ratna Bell on 06-07-2025 Basophils/100 WBC (Bld) 0.3 % 0-1 [facility] CBC W/Diff, Automatedon 10- Absolute Lymph 1.16 X10 3/uL Normal 0.83-4.51 [facility] Comment on above: Performed By: #### L 504.2610, L501.1400, L100.0100, L500.4050 ####[facility] [address] [place], [address] Absolute Neut 4.2 X10 3/uL Normal 2.0-7.7 [facility] Comment on above: Performed By: #### L 504.2610, L501.1400, L100.0100, L500.4050 ####[facility] [address] [place], [address] Basophils/100 WBC (Bld) 0.3 % Normal 0-1 [facility] Comment on above: Performed By: #### L 504.2610, L501.1400, L100.0100, L500.4050 ####[facility] [address] [place], [address] Eosinophils/100 WBC (Bld) 3.4 % Normal 0-5 [facility] Comment on above: Performed By: #### L 504.2610, L501.1400, L100.0100, L500.4050 ####[facility] [address] [place], [address] Erythrocyte distribution width (RBC) [Ratio] 14.1 % Normal 11.6-14.6 [facility] Comment on above: Performed By: #### L 504.2610, L501.1400, L100.0100, L500.4050 ####[facility] [address] [place], [address] Hematocrit (Bld) [Volume fraction] 34.2 % Low 37-47 [facility] Comment on above: Performed By: #### L 504.2610, L501.1400, L100.0100, L500.4050 ####[facility] [address] [place], [address] Hemoglobin (Bld) [Mass/Vol] 11.1 g/dL Low 12.0-15.0 [facility] Comment on above: Performed By: #### L 504.2610, L501.1400, L100.0100, L500.4050 ####[facility] [address] [place], [address] IG% 0.300 Normal 0.0-0.9 [facility] Comment on above: Result Comment: IG% - Immature Granulocytes (promyelocytes, myelocytes and metamyelocytes) > 1% indicates that a LEFT SHIFT is Present. Performed By: #### L 504.2610, L501.1400, L100.0100, L500.4050 ####[facility] [address] [place], [address] Lymphocytes/100 WBC (Bld) 18.8 % Low 19-41 [facility] Comment on above: Performed By: #### L 504.2610, L501.1400, L100.0100, L500.4050 ####[facility] [address] [place], [address] MCH (RBC) [Entitic mass] 27.4 pg Normal 27.0-32.0 [facility] Comment on above: Performed By: #### L 504.2610, L501.1400, L100.0100, L500.4050 ####[facility] [address] [place], [address] MCHC (RBC) [Mass/Vol] 32.5 g/dL Normal 32-36 [facility] Comment on above: Performed By: #### L 504.2610, L501.1400, L100.0100, L500.4050 ####[facility] [address] [place], [address] MCV (RBC) [Entitic vol] 84.4 fL Normal 81-99 [facility] Comment on above: Performed By: #### L 504.2610, L501.1400, L100.0100, L500.4050 ####[facility] [address] [place], [address] Monocytes/100 WBC (Bld) 8.8 % Normal 0-10 [facility] Comment on above: Performed By: #### L 504.2610, L501.1400, L100.0100, L500.4050 ####[facility] [address] [place], [address] Neutrophils/100 WBC (Bld) 68.4 % Normal 47-70 [facility] Comment on above: Performed By: #### L 504.2610, L501.1400, L100.0100, L500.4050 ####[facility] [address] [place], [address] Nucleated RBC (Bld) [#/Vol] 0 10*3/uL Normal 0-5 [facility] Comment on above: Performed By: #### L 504.2610, L501.1400, L100.0100, L500.4050 ####[facility] [address] [place], [address] Platelet mean volume (Bld) [Entitic vol] 10.2 fL Normal 6.2-12.0 [facility] Comment on above: Performed By: #### L 504.2610, L501.1400, L100.0100, L500.4050 ####[facility] [address] [place], [address] Platelets (Bld) [#/Vol] 238 10*3/uL Normal 150-450 [facility] Comment on above: Performed By: #### L 504.2610, L501.1400, L100.0100, L500.4050 ####[facility] [address] [place], [address] RBC (Bld) [#/Vol] 4.05 10*6/uL Low 4.2-5.4 [facility] Comment on above: Performed By: #### L 504.2610, L501.1400, L100.0100, L500.4050 ####[facility] [address] [place], [address] RDW SD 43.6 fl Normal 35.1-43.9 [facility] Comment on above: Performed By: #### L 504.2610, L501.1400, L100.0100, L500.4050 ####[facility] [address] [place], [address] WBC (Bld) [#/Vol] 6.2 10*3/uL Normal 4.4-11.0 [facility] Comment on above: Performed By: #### L 504.2610, L501.1400, L100.0100, L500.4050 ####[facility] [address] [place], [address] Comprehensive Metabolic [facility] 06-07-2025 Albumin [Mass/Vol] 4.0 g/dL Normal 3.4-4.8 [facility] Comment on above: Performed By: #### L 504.2610, L501.1400, L100.0100, L500.4050 ####[facility] [address] [place], [address] Albumin/Globulin [Mass ratio] 1.5 {ratio} Normal 0.9-2.4 [facility] Comment on above: Performed By: #### L 504.2610, L501.1400, L100.0100, L500.4050 ####[facility] [address] [place], [address] ALK PHOS 86 U/L Normal 35-104 [facility] Comment on above: Performed By: #### L 504.2610, L501.1400, L100.0100, L500.4050 ####[facility] [address] [place], [address] ALT [Catalytic activity/Vol] 13 U/L Normal <=34 [facility] Comment on above: Performed By: #### L 504.2610, L501.1400, L100.0100, L500.4050 ####[facility] [address] [place], [address] AST [Catalytic activity/Vol] 17 U/L Normal <=31 [facility] Comment on above: Performed By: #### L 504.2610, L501.1400, L100.0100, L500.4050 ####[facility] [address] [place], [address] Bilirubin [Mass/Vol] 0.20 mg/dL Normal 0.00-1.30 [facility] Comment on above: Performed By: #### L 504.2610, L501.1400, L100.0100, L500.4050 ####[facility] [address] [place], [address] BUN/CRE 30.8 RATIO High 10-20 [facility] Comment on above: Performed By: #### L 504.2610, L501.1400, L100.0100, L500.4050 ####[facility] [address] [place], [address] Calcium [Mass/Vol] 9.6 mg/dL Normal 7.6-11.0 [facility] Comment on above: Performed By: #### L 504.2610, L501.1400, L100.0100, L500.4050 ####[facility] [address] [place], [address] Chloride [Moles/Vol] 105 mmol/L Normal 98-108 [facility] Comment on above: Performed By: #### L 504.2610, L501.1400, L100.0100, L500.4050 ####[facility] [address] [place], [address] CO2 [Moles/Vol] 23.2 mmol/L Normal 21.0-32.0 [facility] Comment on above: Performed By: #### L 504.2610, L501.1400, L100.0100, L500.4050 ####[facility] [address] [place], [address] Creatinine [Mass/Vol] 0.55 mg/dL Low 0.70-1.20 [facility] Comment on above: Performed By: #### L 504.2610, L501.1400, L100.0100, L500.4050 ####[facility] [address] [place], [address] ECRCL 55.10 ml/min Normal 50-250 [facility] Comment on above: Performed By: #### L 504.2610, L501.1400, L100.0100, L500.4050 ####[facility] [address] [place], [address] GAP 11 Normal 5-15 [facility] Comment on above: Performed By: #### L 504.2610, L501.1400, L100.0100, L500.4050 ####[facility] [address] [place], [address] GFR/1.73 sq M.predicted among non-blacks MDRD (S/P/Bld) [Vol rate/Area] 92 mL/min/{1.73_m2} Normal >60 [facility] Comment on above: Result Comment: mL/m in/1.73m2 CKD-EPI Creatinine Equation (2020) Performed By: #### L 504.2610, L501.1400, L100.0100, L500.4050 ####[facility] [address] [place], [address] Globulin (S) [Mass/Vol] 2.7 g/dL Normal 2.2-4.2 [facility] Comment on above: Performed By: #### L 504.2610, L501.1400, L100.0100, L500.4050 ####[facility] [address] [place], [address] Glucose [Mass/Vol] 119 mg/dL High 70-99 [facility] Comment on above: Performed By: #### L 504.2610, L501.1400, L100.0100, L500.4050 ####[facility] [address] [place], [address] Potassium [Moles/Vol] 4.3 mmol/L Normal 3.3-5.1 [facility] Comment on above: Performed By: #### L 504.2610, L501.1400, L100.0100, L500.4050 ####[facility] [address] [place], [address] Sodium [Moles/Vol] 139 mmol/L Normal 133-145 [facility] Comment on above: Performed By: #### L 504.2610, L501.1400, L100.0100, L500.4050 ####[facility] [address] [place], [address] T PROT 6.8 g/dL Normal 5.9-8.4 [facility] Comment on above: Performed By: #### L 504.2610, L501.1400, L100.0100, L500.4050 ####[facility] [address], [address] Urea nitrogen [Mass/Vol] 17 mg/dL Normal 4-19 [facility] Comment on above: Performed By: #### L 504.2610, L501.1400, L100.0100, L500.4050 ####[facility] [address] [place], [address] Eosinophil percentageOrdered By: Robpreeti Bell on 06-07-2025 Eosinophils/100 WBC (Bld) 3.4 % 0-5 [facility] Immature granulocytes/100 WB C Auto (Bld)Ordered By: Robpreeti Bell on 06-07-2025 Immature granulocytes/100 WBC (Bld) 0.300 % 0.0-0.9 [facility] Comment on above: IG% - Immature Granu locytes (promyelocytes, myelocytes and metamyelocytes) > 1% indicates that a LEFT SHIFT is Present. LDHon 06-07-2025 LDH 195 U/L Normal 84-246 [facility] Comment on above: Order Comment: 1 Performed By: #### L 504.2610, L501.1400, L100.0100, L500.4050 ####[facility] [address] [place], [address] Monocyte percentageOrdered B y: Robpreeti Bell on 06-07-2025 Monocytes/100 WBC (Bld) 8.8 % 0-10 [facility] Nucleated red blood cell per centageOrdered By: Robpreeti Bell on 06-07-2025 Nucleated RBC/100 WBC (Bld) [Ratio] 0 % 0-5 [facility] Oncology Visit Reporton 05-24 Oncology Visit Report [facility] [place] [facility] [address] [place] [address] OFFICE VISIT Date of Service: 06/07/25 0803 MR#: [id number] Acct: [id number] Name: JULIA PLASCENCIA Rep #: [id number] : 1945 From: Ngozi Carroll NP DRY HEAT CABINET ATTENDANT -C Age/Sex: 80/F Location: [facility] Status: Signed HPI Subjective Date of Service 06/07/25 Chief Complaint DLBCL on treatment History of Present Illness 80-year-old female who felt a painless lump in the left breast in February 2025 and loss 20 pounds of weight despite a preserved appetite. April 04, 2025 diagnostic mammogram: IMPRESSION: Abnormal intramammary lymph node in the left breast at 2 o'clock 9 cm from the nipple. April 04, 2025 breast ultrasound: IMPRESSION: Abnormal intramammary lymph node in the left breast at 2 o'clock 9 cm from the nipple. April 10, 2025 Left breast, mass/lymph node, breast, core biopsy: - Lymphoid tissue negative for carcinoma ??? see note and Comment. - Mature adipose tissue. - No breast epithelium observed. Note: This case will be sent to [facility] for formal consultation with the hematopathology division of the Pathology Department, to rule out a lymphoproliferative disorder. A separate report from [facility] will follow. IHCs were obtained and will be reported by the individual pension consultant pathologist. COMMENT: A portion of the tissue was sent in RPMI for flow cytometry to [facility]. The flow cytometry showed ???no immunophenotypic evidence of an abnormal population of B lymphocytes or T lymphocytes. Few B-cells detected???. Diagnosis provided by Dr Ashlyn Baeza ([facility] hematopathology division) This addendum is added to incorporate an outside pathology consultation report. The case was examined at [facility] by Dr. Monte (#[id number]) and the following diagnosis was rendered. A. 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 Diagnosis Comment: As described in detail in the synoptic report below, the assessment is somewhat challenging due to the very scant nature of the specimen. However, overall, there is convincing evidence of a neoplastic large B-cell infiltrate expressing germinal center associated markers (BCL6, CD10) and showing a diffuse infiltrative pattern not associated with follicular dendritic cell meshworks. The findings are consistent with an aggressive B-cell lymphoma. FISH studies have been ordered, and the results will be reported in an addendum. Addendum: No rearrangements of BCL2, BCL6 or MYC genes are detected by FISH. 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 May 16, 2025 PET/CT initial staging: IMPRESSION: 1. Multiple enlarged hypermetabolic mediastinal, right axillary, retroperitoneal, mesenteric, and left pelvic lymph nodes consistent with lymphoma. There is a hypermetabolic nodule in the spleen consistent with lymphoma. Interval History Patient is presenting to clinic today accompanied by spouse an adult daughter for an evaluation anticipating she will begin C1 RCHOP. Confirms taking prednisone, acyclovir, allopurinol as advised. Denies any concerns related to today's visit. [facility] Medical History (Updated 06/07/25 @ 08:50 by Ngozi Carroll DRY HEAT CABINET ATTENDANT, DRY HEAT CABINET ATTENDANT-C) Encounter for antineoplastic chemotherapy and immunotherapy Encounter for education DLBCL (diffuse large B cell lymphoma) Hypothyroidism Wears partial dentures Wears glasses Post-menopausal Non-smoker [...] 3-4 times per week seatbelt use: always ROS ROS Narrative Negative except as documented in the interval HPI Intake Vital Signs 05/25/25 09:18 06/06/25 11:13 06/07/25 08:05 06/07/25 08:13 Height 5 ft 5 in 5 ft 5 in 5 ft 5 in 5 ft 5 in Weight: 160 lb 5 oz BMI 26.6 BP 103/65 Blood Pressure Location Lt brachial Position Sitting Respiration 16 (more content not included)... Normal [facility] Uric Acidon 06-07-2025 URIC 5.1 mg/dL Normal 2.6-6.0 [facility] Comment on above: Result Comment: The drugs N-Acetylcysteine and Metamizole may falsely depress this assay. Performed By: #### L 504.2610, L501.1400, L100.0100, L500.4050 ####[facility] [address] [place], [address] Bedside Glucoseon 06-06-2025 FINGERSTICK GLU 109 mg/dL High 74-106 [facility] Comment on above: Result Comment: GORDO LOPEZ OF PATIENT CARE PER NURSING PROTOCOL Performed By: #### L 501.080 ####[facility] [address] [place], [address] CXR for Line Placementon CXR for Line Placement [facility] Imaging Services [address] [place] [address] CXR for Line Placement MR#: [id number] Acct: [id number] Name: JULIA PLASCENCIA Rep #: [id number] : 1945 F 80 From: Gurvinder Tafoya MD PCP: Dr. Cachorro Gonzalez MD Status: [facility] Study: CXR for Line Placement Date of Exam: 06/06/25 Exam# [id number] Ordering Dr: Von Velez PROCEDURE: CXR FOR LINE PLACEMENT 06/06/2025 REASON FOR EXAM: LINE PLACEMENT TECHNIQUE: Procedure Code: RADCXRLP Modality: DX Procedure: CXR FOR LINE PLACEMENT COMPARISON: 05/17/2025 PET-CT. FINDINGS: Right chest Port-A-Cath with tip terminating in the mid superior vena cava. No pneumothorax. The heart appears enlarged which may be due to cardiomegaly or exaggerated AP technique. Left basilar calcific density favoring a calcified granuloma. RAD/CXR for Line Placement IMPRESSION: Right chest Port-A-Cath. No pneumothorax. Reading Location: [address] CC: Dr. Von Velez MD; Dr. Cachorro Gonzalez MD Hydraulic Miner: Signed Normal [facility] Discharge Instructionon 05-24 Discharge Instruction [facility] Medical Records Department [address] [place] [address] Instructions for Home/Discharge Instructions 06/06/25 1413 MR#: [id number] Acct: [id number] Name: JULIA PLASCENCIA Rep #: [id number] : 1945 80 From: Von Velez MD PCP: Dr. Cachorro Gonzalez MD Status:REG [facility] Discharge Instructions Procedure Port-A-Cath Diet Discharge Diet: Light diet - advance as tolerated (Pain medication may cause nausea. You should typically eat light foods as you take your pain medication.) Activity Discharge Activity: Return to Normal Activity and May Shower (with your bandage in place in 1-2 days after surgery. DO NOT SHOWER WHEN YOUR PORT IS ACCESSED.) Lifting Restrictions: 15 pounds for 1 week Additional Activity Instructions:: Alternate ibuprofen and Tylenol for pain control Resume aspirin tomorrow Dressing / Incision Call your doctor if your incision/area has: Continuous Slow Oozing, Sudden Increased Bleeding, Increased Pain/ Swelling, Increased Redness and Foul Smelling Discharge Call your doctor if you observe: Fever of 101 or Higher Remove Dressing in: 2 days Cleanse incision/area with: Soap Water Follow Up Care Please Follow Up With: Von Velez MD When: as needed [phone] Test Results: Test results from this visit will be discussed in further detail at your follow-up appointment, if applicable. Discharge Plan Admission Attending Provider: Von eVlez Primary Care Provider: Cachorro Gonzalez Instructions Print Language: Dutch Discharge Orders/Prescriptions Prescriptions: No Action metformin 1,000 mg tablet 1,000 mg PO BID levothyroxine 75 mcg capsule 75 mcg PO DAILY calcium carbonate [Calcium 500] 500 mg calcium (1,250 mg) tablet 500 mg PO DAILY folic acid 0.8 mg capsule 800 mcg PO QDAY multivitamin tablet 1 tab PO QAM magnesium oxide 400 mg tablet 400 mg PO DAILY ferrous sulfate [Feosol] 325 mg (65 mg iron) tablet 325 mg PO TID glimepiride 1 mg tablet 1 mg PO QDAY gabapentin 300 mg capsule 300 mg PO QHS PRN (Reason: pain) prochlorperazine maleate 10 mg tablet 10 mg PO Q6H PRN (Reason: nausea and vomiting) Qty: 30 2RF acyclovir 400 mg tablet 400 mg PO BID Qty: 60 0RF ondansetron 8 mg tablet,disintegrating 8 mg PO Q8H PRN (Reason: nausea and vomiting) Qty: 30 2RF lidocaine-prilocaine 2.5-2.5 % cream 1 applic topical ONCE PRN (Reason: port access) 30 Days Qty: 30 2RF prednisone 50 mg tablet 100 mg PO .COMPLEX Qty: 60 0RF Rx Instructions: 100 mg orally daily ONLY days 1-5 of treatment cycle allopurinol 300 mg tablet 300 mg PO .COMPLEX Qty: 10 0RF Rx Instructions: 300 mg orally daily on days 0-9 of treatment cycle only aspirin 81 MG tablet,delayed release (DR/EC) 81 mg PO DAILY Patient Comments: follow instructions about stopping Referrals / Follow Up: Cachorro Gonzalez MD [Primary Care Provider, Family Practice] Disposition Disposition (needs filled in before D/C Order can be placed): Home, Self Care 06/06/251413 Von Velez MD CC: Dr. Cachorro Gonzalez MD Signed Normal [facility] deOrdered By: Von Velez on 06-06-2025 Glucose [Mass/Vol] 109 mg/dL High 74-106 [facility] Comment on above: MANAGEMENT OF PATIEN T CARE PER NURSING PROTOCOL MR/POSTOP.ANEon 06-06-2025 MR/POSTOP.[facility] Medical Records Department [address] [place] [address] Anesthesia Postop Eval I 06/06/251415 MR#: [id number] Acct: [id number] Name: JULIA PLASCENCIA Rep #: [id number] : 1945 80 From: Michael Marroquin CRNA PCP: Dr. Cachorro Gonzalez MD Status:REG [facility] Y Race: C Location: [place] [address] Anesthesia: Postop Eval I Current Vital Signs Temperature: 96.9 F Pulse Rate: 87 Blood Pressure: 115/76 Respiratory Rate: 12 Pulse Ox: 97 Oxygen Delivery Method: Room Air Assessment Airway patent: Yes Spontaneous unlabored respirations: Yes Mental status: Awake and Calm nausea: No Vomiting: No Anesthesia Complication: No Fluid Hydration Crystalloid volume administer (ml): 600 Total IV fluid infused: 600 Progress Note Anesthesia document: Postop Eval 1 completed: Yes 06/06/251418 Date Michael Marroquin [employer] Florigner Signature: Date CC: Signed Normal [facility] MR/UUROKUIK9gh 06-06-2025 MR/POSTOPAN2 [facility] Medical Records Department [address] [place] [address] Anesthesia Postop Eval II 06/06/252214 MR#: [id number] Acct: [id number] Name: JULIA PLASCENCIA Rep #: [id number] : 1945 80 From: Adam Peter MD PCP: Dr. Cachorro Gonzalez MD Status:[facility] Y Race: C Location: [facility] Anesthesia Postop Eval I Sum Postop Eval Completion status Anesthesia document: Postop Eval 1 completed: Yes Anesthesia Postop Eval I Summary Anesthesia Postop Eval I Summary: Anesthesia Postop Eval I: Assessment Summary Airway patent Yes 06/06/25 14:19 [employer]SHOF Spontaneous unlabored Yes 06/06/25 14:19 [employer]SHOF respirations Mental status Awake,Calm 06/06/25 14:19 [employer]SHOF nausea No 06/06/25 14:19 [employer]SHOF Vomiting No 06/06/25 14:19 [employer]SHOF Anesthesia Postop Eval I: Fluid Summary Crystalloid volume administer 600 06/06/25 14:19 [employer].SHOF (ml) Colloids volume administered ( ml) Blood Product volume administered (ml) Total IV fluid infused 600 06/06/25 14:19 [employer]SHOF Anesthesia Postop Eval I: Summary Notes Anesthesia Complication No 06/06/25 14:19 [employer]SHOF Anesthesia Complication Comment: Post-operative progress note Anesthesia: Postop Eval II Evaluation Mental status: Awake and Calm Pain Level: 1 nausea: No Vomiting: No Complications Anesthesia Complication: No 06/06/252215 Adam Michel Signature: Date CC: Signed Normal [facility] Operative Reporton 5 Operative Report [facility] Medical Records Department [address] [place] [address] Operative Report 06/06/25 1412 MR#: [id number] Acct: [id number] Name: JULIA PLASCENCIA Rep #: [id number] : 1945 80 From: Von Velez MD PCP: Dr. Cachorro Gonzalez MD Status:[facility] Location: [place] [address] Operative Report (Standard) Operative Information Date of Procedure: 06/06/25 Pre-Operative Diagnosis: Need for vascular access for chemotherapy for lymphoma Post-Operative Diagnosis: Same Surgery/Procedure Performed: Ultrasound and fluoroscopy guided right chest port placement utilizing right IJ painter ordnance: No Type of Anesthesia: Local MAC RN Documented Start/Stop Times: Operation Date: 06/06/25 12:45 Case Time Into Pre-Op 06/06/25 10:53 Out of Pre-Op 06/06/25 13:35 Anesthesia Start 06/06/25 13:42 Into Room 06/06/25 13:42 Procedure Start 06/06/25 13:56 Procedure End 06/06/25 14:08 Anesthesia End 06/06/25 14:12 Out of Room 06/06/25 14:12 Procedure Start Time: 13:56 Procedure Stop Time: 14:12 Select all DRAINS/GRAFTS/IMPLANTS that apply: Implanted device Implanted device details: 8 [place] PowerPort Estimated Blood Loss: 5 Specimen collected: No Description of surgery: After obtaining informed consent patient was brought back to the operating room MAC anesthesia was induced and the right chest and neck were prepped in normal sterile fashion. Ultrasound was used to evaluate both IJs and the right IJ was selected. Next, using a needle, the right IJ was accessed and a guidewire was passed on into the superior vena cava under fluoroscopy guidance. A small incision was made over the puncture site and the dilator introducer was placed over the guidewire. Next this was capped and the pocket was made for the port. 1% lidocaine with epinephrine was injected in the proposed port site. An incision was made with scalpel. Electrocautery was used to make a pocket under the skin and subcutaneous tissue. Hemostasis was obtained. Next, the catheter was tunneled up to the neck incision site and placed through the introducer. The peel-away introducer was removed and the position of the catheter was confirmed on fluoroscopy. Next, the catheter was trimmed and attached to the port with the locking device. Interrupted 2-0 Vicryl sutures were used to anchor the port to the chest wall and then the port was placed inside the pocket. The pocket was then flushed with saline and the port irrigated with saline. There was good blood return and the port flushed easily. Next, heparin was injected into the port. The skin was closed with subcutaneous interrupted 3-0 Vicryl sutures. A single 3-0 Vicryl sutures placed under the skin at the neck incision site. Steri-Strips were placed as well as op sites. Patient tolerated procedure well, was taken to PACU in stable condition. Chest x-ray will be obtained. Surgical Findings: None Complications Complications: No Admit VTE Documentation VTE Mechan Device Prophylaxis: SCD's 06/06/25 1413 Cosigner Signature (if applicable): CC: Dr. Von Velez MD; Dr. Cachorro Gonzalez MD Signed [facility] Medical Records Department [address] [place] [address] PAT - Anesthesia 05/31/25 1622 MR#: [id number] Acct: [id number] Name: JULIA PLASCENCIA Rep #: [id number] : 1945 80 From: Tal Tillman MD PCP: Dr. Cachorro Gonzalez MD Status:PRE [facility] Y Race: C Location: [facility] Pre-Assessment Diagnosis/Proposed Procedure Planned Operative Procedure(s): RIGHT POSSIBLE LEFT IJ PORT INSERTION Anesthesia History Anesthesia History - shift nurse manager: Anesthesia History - shift nurse manager Hx Hospitalization No 05/31/25 14:40 Any Problems With Anesthesia No 05/31/25 14:40 Cholinesterase deficiency No 05/31/25 14:40 You/Your Family Experience No 05/31/25 14:40 fever (hyperthermia) with Relationship Recent Exposure to Contagious No 02/07/25 07:30 Disease Does patient have nerve No 05/31/25 14:40 stimulator Patient instructed to have device shut off --Does patient have Pacemaker or ICD? When Was Last Pacemaker Check QUESTION #4 FULL TEXT: You/Your Family Experience fever (hyperthermia) with Anesthesia Last Oral Intake Last Oral intake: Last Oral Intake NPO since Meds taken in AM with sips of water? Meds patient instructed to take am of surgery PONV PONV - shift nurse manager: PONV - shift nurse manager Female Yes 05/31/25 14:40 HX of Motion Sickness No 05/31/25 14:40 HX of N/V After Surgery No 05/31/25 14:40 Non-Smoker Yes 05/31/25 14:40 Duration of Surgery greater No 05/31/25 14:40 than 60 minutes Number of Risk Factors 2 05/31/25 14:40 PONV Score Moderate Risk 05/31/25 14:40 Height Weight Height Weight: Anesthesia: Height Weight Height 5 ft 5 in 05/25/25 09:18 Respiratory Assessment Respiratory Assessment - shift nurse manager: Respiratory Tract Infection Hx - shift nurse manager Hx Respiratory Tract Infection No 05/31/25 14:40 STOP Sleep Apnea STOP Sleep Apnea - shift nurse manager: STOP Sleep Apnea - shift nurse manager Hx Hypertension No: hypotension 05/31/25 14:40 Hx Sleep Apnea No 05/31/25 14:40 CPAP BIPAP Do you snore loudly (louder No 05/31/25 14:40 than talking or can be heard Do you often feel tired/ No 05/31/25 14:40 fatigued/ sleepy during daytime? Has anyone observed you stop No 05/31/25 14:40 breathing during sleep? STOP Results Negative 05/31/25 14:40 QUESTION #5 FULL TEXT : Do you snore loudly (louder than talking or can be heard through closed doors)? 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 Specify any problems Hx of Preganancy in last 3 N/A 05/31/25 14:40 Months Nurse Filling Out Transfusion NBUCHER 05/31/25 14:40 Questions: Date: 05/31/25 05/31/25 14:40 Time: 14:42 05/31/25 14:40 Patient unable to answer at this time (ie. confused, unrespo /Reproduction History /Reproductive History - shift nurse manager: /Reproductive Hx- shift nurse manager Hx Now No 05/31/25 14:40 Gestational Age (in weeks): EDC: Hx Hx Para Hx Section SAB No 05/31/25 14:40 PFS Medical History Encounter for education DLBCL (diffuse large B cell lymphoma) Hypothyroidism Wears partial dentures Wears glasses Post-menopausal Non-smoker [...] mcg PO QDAY 10/13/17 Unknown H istory levothyroxine 75 mcg capsule 75 mcg PO DAILY 10/13/17 02/16/19 08:00 History 75 MCG metformin 1,000 mg tablet 1,000 mg PO BID 10/13/17 Unknown H istory multivitamin 1 tab PO QAM 10/13/17 Unknown Hist ory magnesium oxide 400 mg (241.3 mg 400 mg PO DAILY 10/16/17 Unknown H istory (more content not included)... Normal [facility] Surgery Visit Reporton 05-29 Surgery Visit Report [facility] [address] [place] [address] OFFICE VISIT Date of Service: 05/29/25 MR#: [id number] Acct: [id number] Name: JULIA PLASCENCIA Rep #: [id number] : 1945 Provider: Dr. Von chun MD Age/Sex: 80/F Location: [facility] Status: Signed Intake Vital Signs 05/25/25 09:18 05/29/25 08:44 Height 5 ft 5 in 5 ft 5 in Weight: 160 lb 159 lb BMI 26.6 26.4 BP 146/75 H 108/66 Blood Pressure Location Lt brachial Rt brachial Position Sitting Sitting Respiration 18 17 Pulse 81 74 Pulse Source Monitor Monitor Temp 98.2 F Pulse Oximetry (%) 99 98 Oxygen Delivery Method room air room air Intake Visit Reasons: DISCUSS PORT PLACEMENT Chief Complaint: discuss port placement Is patient in pain?: No Allergies No Known Allergies Allergy (Verified 05/29/25 08:45) Medications ???Medication ???Instructions ???Recorded ???Confirmed ???Type calcium carbonate (Calcium 500) 500 mg PO DAILY 10/13/17 05/29/25 History folic acid 0.8 mg capsule 800 mcg PO QDAY 10/13/17 05/29/25 History levothyroxine 75 mcg capsule 75 mcg PO DAILY 10/13/17 05/29/25 History metformin 1,000 mg tablet 1,000 mg PO BID 10/13/17 05/29/25 History multivitamin 1 tab PO QAM 10/13/17 05/29/25 His tory magnesium oxide 400 mg (241.3 mg 400 mg PO DAILY 10/16/17 05/29/25 History magnesium) tablet aspirin 81 mg tablet,delayed 81 mg PO DAILY heart health 05/29/25 History release ferrous sulfate 325 mg (65 mg 325 mg PO TID 01/09/25 05/29/25 Hi story iron) tablet (Feosol) gabapentin 300 mg capsule 300 mg PO QHS PRN 05/08/25 5 History glimepiride 1 mg tablet 1 mg PO QDAY 05/08/25 05/29/25 His tory acyclovir 400 mg tablet 400 mg PO BID #60 tabs 05/25/25 Rx allopurinol 300 mg tablet 300 mg PO .COMPLEX #10 tabs 05/29/25 Rx lidocaine-prilocaine 2.5 %-2.5 % 1 applic topical ONCE PRN port 10/1805/29/25 Rx topical cream access 30 days #30 grams ondansetron 8 mg disintegrating 8 mg PO Q8H PRN nausea and 5 05/29/25 Rx tablet vomiting #30 tabs prednisone 50 mg tablet 100 mg (2 x 50 mg) PO .COMPLEX #60 05/25/25 05/29/25 Rx tabs prochlorperazine maleate 10 mg 10 mg PO Q6H PRN nausea and 05/29/25 Rx tablet vomiting #30 tabs Have you fallen in the past year?: No PFS Medical History (Updated 05/29/25 @ 08:44 by Gregory Hernandez) Encounter for education DLBCL (diffuse large B cell lymphoma) Hypothyroidism Wears partial dentures Wears glasses Post-menopausal Non-smoker [...] HPI HPI: Patient is an 80-year-old female 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 I discussed placing a chest port with her at today's visit. ROS General General: Yes weight change and fatigue; No appetite, colon cancer, breast cancer or weakness HEENT HEENT: No difficulty swallowing, eye injury, eye surgery, swollen glands or hoarseness Endo Endocrine: Yes thyroid disease and diabetes mellitus; No thyroid cancer, Hair loss, heat intolerance or cold intolerance Skin Skin: No rash or changing moles Musc Musculoskeletal: No back problems, arthritis, rheumatoid [...] Hematologic: No blood thinners, No blood disorders, (more content not included)... Normal [facility] Oncology Visit Reporton Oncology Visit Report [facility] [address] [place] [id number] OFFICE VISIT Date of Service: 05/25/25 0911 MR#: [id number] Acct: [id number] Name: JULIA PLASCENCIA Rep #: [id number] : 1945 From: Ngozi Carroll NP [employer]IN[employer] ATTENDANT -C Age/Sex: 80/F Location: [facility] Status: Signed HPI Subjective Date of Service 05/25/25 Chief Complaint Chemotherapy Education- [facility] History of Present Illness 80-year-old female who felt a painless lump in the left breast in February 2025 and loss 20 pounds of weight despite a preserved appetite. April 04, 2025 diagnostic mammogram: IMPRESSION: Abnormal intramammary lymph node in the left breast at 2 o'clock 9 cm from the nipple. April 04, 2025 breast ultrasound: IMPRESSION: Abnormal intramammary lymph node in the left breast at 2 o'clock 9 cm from the nipple. April 10, 2025 Left breast, mass/lymph node, breast, core biopsy: - Lymphoid tissue negative for carcinoma ??? see note and Comment. - Mature adipose tissue. - No breast epithelium observed. Note: This case will be sent to [facility] for formal consultation with the hematopathology division of the Pathology Department, to rule out a lymphoproliferative disorder. A separate report from [facility] will follow. IHCs were obtained and will be reported by the individual pension consultant pathologist. COMMENT: A portion of the tissue was sent in RPMI for flow cytometry to [facility]. The flow cytometry showed ???no immunophenotypic evidence of an abnormal population of B lymphocytes or T lymphocytes. Few B-cells detected???. Diagnosis provided by Dr Ashlyn Baeza ([facility] hematopathology division) This addendum is added to incorporate an outside pathology consultation report. The case was examined at [facility] by Dr. Monte (#[id number]) and the following diagnosis was rendered. A. 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 Diagnosis Comment: As described in detail in the synoptic report below, the assessment is somewhat challenging due to the very scant nature of the specimen. However, overall, there is convincing evidence of a neoplastic large B-cell infiltrate expressing germinal center associated markers (BCL6, CD10) and showing a diffuse infiltrative pattern not associated with follicular dendritic cell meshworks. The findings are consistent with an aggressive B-cell lymphoma. FISH studies have been ordered, and the results will be reported in an addendum. Addendum: No rearrangements of BCL2, BCL6 or MYC genes are detected by FISH. 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 May 16, 2025 PET/CT initial staging: IMPRESSION: 1. Multiple enlarged hypermetabolic mediastinal, right axillary, retroperitoneal, mesenteric, and left pelvic lymph nodes consistent with lymphoma. There is a hypermetabolic nodule in the spleen consistent with lymphoma. Interval History Patient is presenting to clinic today accompanied by spouse an adult daughter for an education visit to discuss R-CHOP. Describes an active lifestyle and good support system by way of adult children. [facility] Medical History (Updated 05/25/25 @ 16:48 by Ngozi Carroll NP, [employer] ATTENDANT-C) Encounter for education DLBCL (diffuse large B cell lymphoma) Hypothyroidism Wears partial dentures Wears glasses Post-menopausal Non-smoker [...] 3-4 times per week seatbelt use: always ROS ROS Narrative Negative except as documented in the interval HPI Constitutional Constitutional: Reports fatigue, weight loss and other Details: 20 pounds weight loss in the past 6 months despite preserved appetite ; Denies anorexia, fever(s) or night sweats Eyes Eyes: Reports systems reviewed and no addt'l complaints, except as documented ENT HEENT: Reports systems reviewed and no addt'l complaints, except as documented; Den (more content not included)... Normal [facility] Oncology Visit Reporton 04-26 Oncology Visit Report [facility] [address] [place] [address] OFFICE VISIT Date of Service: 05/23/25 1436 MR#: [id number] Acct: [id number] Name: JULIA PLASCENCIA Rep #: [id number] : 1945 From: Ratna Bell MD Age/Sex: 80/F Location: [facility] Status: Signed HPI Subjective Date of Service 05/23/25 Chief Complaint lymphoma History of Present Illness 80-year-old female who felt a painless lump in the left breast in February 2025 and loss 20 pounds of weight despite a preserved appetite. April 04, 2025 diagnostic mammogram: IMPRESSION: Abnormal intramammary lymph node in the left breast at 2 o'clock 9 cm from the nipple. April 04, 2025 breast ultrasound: IMPRESSION: Abnormal intramammary lymph node in the left breast at 2 o'clock 9 cm from the nipple. April 10, 2025 Left breast, mass/lymph node, breast, core biopsy: - Lymphoid tissue negative for carcinoma ??? see note and Comment. - Mature adipose tissue. - No breast epithelium observed. Note: This case will be sent to [facility] for formal consultation with the hematopathology division of the Pathology Department, to rule out a lymphoproliferative disorder. A separate report from [facility] will follow. IHCs were obtained and will be reported by the individual pension consultant pathologist. COMMENT: A portion of the tissue was sent in RPMI for flow cytometry to [facility]. The flow cytometry showed ???no immunophenotypic evidence of an abnormal population of B lymphocytes or T lymphocytes. Few B-cells detected???. Diagnosis provided by Dr Ashlyn Baeza ([facility] hematopathology division) This addendum is added to incorporate an outside pathology consultation report. The case was examined at [facility] by Dr. Monte (#[id number]) and the following diagnosis was rendered. A. 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 Diagnosis Comment: As described in detail in the synoptic report below, the assessment is somewhat challenging due to the very scant nature of the specimen. However, overall, there is convincing evidence of a neoplastic large B-cell infiltrate expressing germinal center associated markers (BCL6, CD10) and showing a diffuse infiltrative pattern not associated with follicular dendritic cell meshworks. The findings are consistent with an aggressive B-cell lymphoma. FISH studies have been ordered, and the results will be reported in an addendum. Addendum: No rearrangements of BCL2, BCL6 or MYC genes are detected by FISH. 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 May 16, 2025 PET/CT initial staging: IMPRESSION: 1. Multiple enlarged hypermetabolic mediastinal, right axillary, retroperitoneal, mesenteric, and left pelvic lymph nodes consistent with lymphoma. There is a hypermetabolic nodule in the spleen consistent with lymphoma. [facility] Medical History DLBCL (diffuse large B cell lymphoma) Hypothyroidism Wears partial dentures Wears glasses Post-menopausal Non-smoker [...] 3-4 times per week seatbelt use: always ROS Constitutional Constitutional: Reports fatigue, weight loss and other Details: 20 pounds weight loss in the past 6 months despite preserved appetite ; Denies anorexia, fever(s) or night sweats Eyes Eyes: Reports systems reviewed and no addt'l complaints, except as documented ENT HEENT: Reports systems reviewed and no addt'l complaints, except as documented; Denies mouth lesions Cardiovascular Cardiovascular: Reports systems reviewed and no addt'l complaints, except as documented; Denies chest pain with activity or edema Respiratory/Chest Respiratory/Chest: Reports systems reviewed and no addt'l complaints, except as documented; Denies cough or dyspnea Gastrointestinal Gastrointestinal: Report (more content not included)... Normal [facility] PET/CT Tumor Base -Thigh Ini ton 05-16-2025 PET/CT Tumor Base -Thigh Init [facility] [address] [place] [address] PET/CT Tumor Base -Thigh Init MR#: [id number] Acct: [id number] Name: JULIA PLASCENCIA Rep #: [id number] : 1945 F 80 From: Austin Briggs MD PCP: Dr. Cachorro Gonzalez MD Status: REG RCR Study: PET/CT Tumor Base -Thigh Init Date of Exam: Exam# [id number] Ordering Dr: Ratna Bell MD PROCEDURE: PET/CT TUMOR BASE -THIGH INIT 05/16/2025 REASON FOR EXAM: 80 y/o F with LYMPHOMA TECHNIQUE: Procedure Code: PETPTCTINIT Modality: PT Procedure: PET/CT TUMOR BASE -THIGH INIT After intravenous injection of 14.0 millicuries of FDG and a standard uptake period, a noncontrast CT scan, followed by a PET scan were acquired along the length of the body from the base of the skull to the mid thighs. The noncontrast helical CT imaging was performed without breath hold, for attenuation correction of PET images and anatomic correlation, but not for primary interpretation, as it is not of the standard diagnostic quality. Images were reviewed in the axial, coronal and sagittal planes. RADIATION DOSE SUMMARY: Effective Dose: Approximately 7 mSv for a standard whole-body PET scan Organ Doses: Varies by organ, with higher doses typically to the bladder, liver, and brain CTDI: 8.4 mGy. DLP: 780.2 mGy cm COMPARISON: COMPARISON FROM CT, PET OR OTHER PERTINENT EXAMS: None.. FINDINGS: Physiologic uptake: There may be expected metabolic uptake within the brain, tongue and floor of the mouth and larynx/vocal cords, heart, tl (many normal individuals have hilar uptake in less than 3 nodes with mildly avid hilar nodes less than 2.7 SUV), liver and spleen, system, and GI tract and symmetric muscle uptake. FDG AVID AND NON-AVID LESIONS. Reported avid SUV values (g/mL) are maximum SUV. Head and neck: There is a normal distribution of FDG activity in the visualized brain parenchyma. There is calcific vascular disease of the intracranial portion of both internal carotid arteries. There is calcific vascular disease of the carotid bifurcations. There is normal uptake within the soft tissues of the neck and glandular structures. There is no hypermetabolic lymphadenopathy. Chest: There are calcified granulomas in both lungs. There is no hypermetabolic activity in the pulmonary parenchyma. There are no pleural effusions. The heart is enlarged. There is no pericardial effusion. There is calcific vascular disease of the thoracic aorta and coronary arteries. The aortic and mitral valves are heavily calcified. There is dilatation of the main pulmonary artery measuring 3.8 cm in diameter consistent with pulmonary arterial hypertension. There is a left superior mesenteric lymph node measuring 17 x 12 mm max SUV 19.0. There is a right superior mesenteric lymph node measuring 2.6 x 1.0 cm, max SUV 14.0. There is an azygous lymph node measuring 1.2 x 1.1 cm, max SUV 11.3. There is a right para-aortic lymph node measuring 1.7 x 1.3 cm, max SUV 17.9. There is a right axillary lymph node measuring 8 x 6 mm, max SUV 7.3. Abdomen and pelvis: There are multiple hypermetabolic retroperitoneal lymph nodes, the largest, a retrocaval lymph node, measuring 1.6 x 1.2 cm, max SUV 23.8. There are multiple mesenteric lymph nodes, the largest a mesenteric lymph node mass measuring 3.8 x 3.6 cm, max SUV 13.6. There is a hypermetabolic left external iliac lymph node measuring 1.9 x 1.3 cm, max SUV 23.3 there is a peripherally hypermetabolic nodule in the spleen measuring 2.6 x 2.3 cm, max SUV 11.5, consistent with a centrally necrotic nodule. There is a small hiatal hernia. There are surgical clips consistent with anti reflux surgery. Status post gastric bypass surgery. There is a normal distribution of FDG activity within the gastrointestinal and genitourinary tract. Musculoskeletal: There are no suspicious hypermetabolic osteolytic or osteosclerotic lesions. Uptake time: 60 minutes. Mediastinal blood pool: Max SUV, Blood glucose (mg/dL): 92 BMI: 26.9 PET/PET/CT Tumor Base -Thigh Init IMPRESSION: 1. Multiple enlarged hypermetabolic mediastinal, right axillary, retroperitoneal, mesenteric, and left pelvic lymph nodes consistent with lymphoma. There is a hypermetabolic nodule in the spleen consistent with lymphoma. 2. Other findings as noted. Reading Location: [id number] CC: Dr. Ratna Bell MD; Dr. Cachorro Gonzalez MD [employer]er: Signed [facility] Hepatitis B/C Profile VIIIon 05-12-2025 HEPATITIS INTER [facility] Comment on above: Result Comment: TEST RESULTS LIMITS Viral Hepatitis HBV, HCV HBsAg Screen Negative Negative Hep B Surface Ab, Qual Non Reactive Non Reactive: Not immune to HBV infection. Anti-HBs undetectable or less than 10 mIU/mL. Reactive: Evidence of HBV immunity. Anti-HBs levels greater than 10 mIU/mL. Hep B Core Ab, Tot Negative Negative Interpretation HBV Serology Interpretation Chart Interpretation HBsAg anti-HBs anti-HBc anti-HBc IgM [place] - Analyte present: + Analyte absent: - Test not indicated: TNI Susceptible (never infected and no evidence - - - TNI of vaccination) Immune due to natural resolved infection - + + TNI Immune due to vaccination - + - TNI Acute Infection + - + + Chronic infection + - + - Interpretation unclear* - - + +/- *Multiple possibilities: resolved infection (most common); false- positive anti-HBc (susceptible); low-level chronic infection; resolving acute infection. HCV Ab Non Reactive Non Reactive Interpretation: Not infected with HCV unless early or acute infection is suspected (which may be delayed in an immunocompromised individual), or other evidence exists to indicate HCV infection. TESTING PERFORMED AT [facility]. ORIGINAL REPORT ON FILE IN LAB CONTAINS ADDITIONAL TEST SITE INFORMATION. Performed By: #### L 3000.0800, L503.6030, L504.2610, L100.0100, L503.6550, L503.0106, L500.4050 ####[facility] [id number] [place], [address] Absolute lymphocyte countOrd ered By: Ratna Bell on 05-11-2025 Lymphocytes Auto (Unsp spec) [#/Vol] 1.15 10*3/uL 0.83-4.51 [facility] Absolute neutrophil countOrd ered By: Ratna Bell on 05-11-2025 Neutrophils (Bld) [#/Vol] 5.2 10*3/uL 2.0-7.7 [facility] Anion gap in Serum or Plasma Ordered By: Ratna Arabella on 05-11-2025 Anion gap [Moles/Vol] 13 mmol/L 5- [facility] Automated lymphocyte count a s percentage of total leukocytesOrdered By: Ratna Arabella on 05-11-2025 Lymphocytes/100 WBC Auto (Unsp spec) 16.3 % Low - [facility] BUN/creatinine ratioOrdered By: [facility] on 05-11-2025 Urea nitrogen/Creatinine [Mass ratio] 18.8 mg/mg 10- [facility] Basophil percentageOrdered B y: Robpreeti Bell on 05-11-2025 Basophils/100 WBC (Bld) 0.6 % 0- [facility] Bilirubin, totalOrdered By: Robpreeti Bell on 05-11-2025 Bilirubin [Mass/Vol] 0.20 mg/dL 0.00-1.30 [facility] CBC W/Diff, Automatedon 04-24 Absolute Lymph 1.15 X10 3/uL Normal 0.83-4.51 [facility] Comment on above: Performed By: #### L 3000.0800, L503.6030, L504.2610, L100.0100, L503.6550, L503.0106, L500.4050 #### [facility] [address] [place], [address] Absolute Neut 5.2 X10 3/uL Normal 2.0-7.7 [facility] Comment on above: Performed By: #### L 3000.0800, L503.6030, L504.2610, L100.0100, L503.6550, L503.0106, L500.4050 #### [facility] [address] [place], [address] Basophils/100 WBC (Bld) 0.6 % Normal 0-1 [facility] Comment on above: Performed By: #### L 3000.0800, L503.6030, L504.2610, L100.0100, L503.6550, L503.0106, L500.4050 #### [facility] [address] [place], [address] Eosinophils/100 WBC (Bld) 2.5 % Normal 0-5 [facility] Comment on above: Performed By: #### L 3000.0800, L503.6030, L504.2610, L100.0100, L503.6550, L503.0106, L500.4050 #### [facility] [address] [place], [address] Erythrocyte distribution width (RBC) [Ratio] 14.6 % Normal 11.6-14.6 [facility] Comment on above: Performed By: #### L 3000.0800, L503.6030, L504.2610, L100.0100, L503.6550, L503.0106, L500.4050 #### [facility] [address] [place], [address] Hematocrit (Bld) [Volume fraction] 36.9 % Low 37-47 [facility] Comment on above: Performed By: #### L 3000.0800, L503.6030, L504.2610, L100.0100, L503.6550, L503.0106, L500.4050 #### [facility] [address] [place], [address] Hemoglobin (Bld) [Mass/Vol] 12.1 g/dL Normal 12.0-15.0 [facility] Comment on above: Performed By: #### L 3000.0800, L503.6030, L504.2610, L100.0100, L503.6550, L503.0106, L500.4050 #### [facility] [address] [place], [address] IG% 0.300 Normal 0.0-0.9 [facility] Comment on above: Result Comment: IG% - Immature Granulocytes (promyelocytes, myelocytes and metamyelocytes) > 1% indicates that a LEFT SHIFT is Present. Performed By: #### L 3000.0800, L503.6030, L504.2610, L100.0100, L503.6550, L503.0106, L500.4050 #### [facility] [address] [place], [address] Lymphocytes/100 WBC (Bld) 16.3 % Low 19-41 [facility] Comment on above: Performed By: #### L 3000.0800, L503.6030, L504.2610, L100.0100, L503.6550, L503.0106, L500.4050 #### [facility] [address] [place], [address] MCH (RBC) [Entitic mass] 27.5 pg Normal 27.0-32.0 [facility] Comment on above: Performed By: #### L 3000.0800, L503.6030, L504.2610, L100.0100, L503.6550, L503.0106, L500.4050 #### [facility] [address] [place], [address] MCHC (RBC) [Mass/Vol] 32.8 g/dL Normal 32-36 [facility] Comment on above: Performed By: #### L 3000.0800, L503.6030, L504.2610, L100.0100, L503.6550, L503.0106, L500.4050 #### [facility] [address] [place], [address] MCV (RBC) [Entitic vol] 83.9 fL Normal 81-99 [facility] Comment on above: Performed By: #### L 3000.0800, L503.6030, L504.2610, L100.0100, L503.6550, L503.0106, L500.4050 #### [facility] [address] [place], [address] Monocytes/100 WBC (Bld) 6.4 % Normal 0-10 [facility] Comment on above: Performed By: #### L 3000.0800, L503.6030, L504.2610, L100.0100, L503.6550, L503.0106, L500.4050 #### [facility] [address] [place], [address] Neutrophils/100 WBC (Bld) 73.9 % High 47-70 [facility] Comment on above: Performed By: #### L 3000.0800, L503.6030, L504.2610, L100.0100, L503.6550, L503.0106, L500.4050 #### [facility] [address] [place], [address] Nucleated RBC (Bld) [#/Vol] 0 10*3/uL Normal 0-5 [facility] Comment on above: Performed By: #### L 3000.0800, L503.6030, L504.2610, L100.0100, L503.6550, L503.0106, L500.4050 #### [facility] [address] [place], [address] Platelet mean volume (Bld) [Entitic vol] 10.0 fL Normal 6.2-12.0 [facility] Comment on above: Performed By: #### L 3000.0800, L503.6030, L504.2610, L100.0100, L503.6550, L503.0106, L500.4050 #### [facility] [address] [place], [address] Platelets (Bld) [#/Vol] 248 10*3/uL Normal 150-450 [facility] Comment on above: Performed By: #### L 3000.0800, L503.6030, L504.2610, L100.0100, L503.6550, L503.0106, L500.4050 #### [facility] [address] [place], [address] RBC (Bld) [#/Vol] 4.40 10*6/uL Normal 4.2-5.4 [facility] Comment on above: Performed By: #### L 3000.0800, L503.6030, L504.2610, L100.0100, L503.6550, L503.0106, L500.4050 #### [facility] [address] [place], [address] RDW SD 44.8 fl High 35.1-43.9 [facility] Comment on above: Performed By: #### L 3000.0800, L503.6030, L504.2610, L100.0100, L503.6550, L503.0106, L500.4050 #### [facility] [address] [place], [address] WBC (Bld) [#/Vol] 7.1 10*3/uL Normal 4.4-11.0 [facility] Comment on above: Performed By: #### L 3000.0800, L503.6030, L504.2610, L100.0100, L503.6550, L503.0106, L500.4050 #### [facility] [address] [place], [address] Carbon dioxide, total [Moles /volume] in Central venous bloodOrdered By: Ratna Bell on 05-11-2025 CO2 [Moles/Vol] 24.5 mmol/L 21.0-32.0 [facility] Chloride assayOrdered By: Prosper Bell on 05-11-2025 Chloride [Moles/Vol] 102 mmol/L 98-108 [facility] Comprehensive Metabolic Prof ilon 05-11-2025 Albumin [Mass/Vol] 4.3 g/dL Normal 3.4-4.8 [facility] Comment on above: Performed By: #### L 3000.0800, L503.6030, L504.2610, L100.0100, L503.6550, L503.0106, L500.4050 #### [facility] [address] [place], [address] Albumin/Globulin [Mass ratio] 1.6 {ratio} Normal 0.9-2.4 [facility] Comment on above: Performed By: #### L 3000.0800, L503.6030, L504.2610, L100.0100, L503.6550, L503.0106, L500.4050 #### [facility] [address] [place], [place], [id number] (742) ALK PHOS 84 U/L Normal 35-104 [facility] Comment on above: Performed By: #### L 3000.0800, L503.6030, L504.2610, L100.0100, L503.6550, L503.0106, L500.4050 #### [facility] [address] [place], [address] ALT [Catalytic activity/Vol] 20 U/L Normal <=34 [facility] Comment on above: Performed By: #### L 3000.0800, L503.6030, L504.2610, L100.0100, L503.6550, L503.0106, L500.4050 #### [facility] [address] [place], [address] AST [Catalytic activity/Vol] 22 U/L Normal <=31 [facility] Comment on above: Performed By: #### L 3000.0800, L503.6030, L504.2610, L100.0100, L503.6550, L503.0106, L500.4050 #### [facility] [address] [place], [address] Bilirubin [Mass/Vol] 0.20 mg/dL Normal 0.00-1.30 [facility] Comment on above: Performed By: #### L 3000.0800, L503.6030, L504.2610, L100.0100, L503.6550, L503.0106, L500.4050 #### [facility] [address] [place], [address] BUN/CRE 18.8 RATIO Normal 10-20 [facility] Comment on above: Performed By: #### L 3000.0800, L503.6030, L504.2610, L100.0100, L503.6550, L503.0106, L500.4050 #### [facility] [address] [place], [address] Calcium [Mass/Vol] 9.7 mg/dL Normal 7.6-11.0 [facility] Comment on above: Performed By: #### L 3000.0800, L503.6030, L504.2610, L100.0100, L503.6550, L503.0106, L500.4050 #### [facility] [address] [place], [address] Chloride [Moles/Vol] 102 mmol/L Normal 98-108 [facility] Comment on above: Performed By: #### L 3000.0800, L503.6030, L504.2610, L100.0100, L503.6550, L503.0106, L500.4050 #### [facility] [address] [place], [address] CO2 [Moles/Vol] 24.5 mmol/L Normal 21.0-32.0 [facility] Comment on above: Performed By: #### L 3000.0800, L503.6030, L504.2610, L100.0100, L503.6550, L503.0106, L500.4050 #### [facility] [address] [place], [address] Creatinine [Mass/Vol] 0.53 mg/dL Low 0.70-1.20 [facility] Comment on above: Performed By: #### L 3000.0800, L503.6030, L504.2610, L100.0100, L503.6550, L503.0106, L500.4050 #### [facility] [address] [place], [address] GAP 13 Normal 5-15 [facility] Comment on above: Performed By: #### L 3000.0800, L503.6030, L504.2610, L100.0100, L503.6550, L503.0106, L500.4050 #### [facility] [address] [place], [address] GFR/1.73 sq M.predicted among non-blacks MDRD (S/P/Bld) [Vol rate/Area] 93 mL/min/{1.73_m2} Normal >60 [facility] Comment on above: Result Comment: mL/m in/1.73m2 CKD-EPI Creatinine Equation (2020) Performed By: #### L 3000.0800, L503.6030, L504.2610, L100.0100, L503.6550, L503.0106, L500.4050 #### [facility] [address] [place], [address] Globulin (S) [Mass/Vol] 2.7 g/dL Normal 2.2-4.2 [facility] Comment on above: Performed By: #### L 3000.0800, L503.6030, L504.2610, L100.0100, L503.6550, L503.0106, L500.4050 #### [facility] [address] [place], [address] Glucose [Mass/Vol] 75 mg/dL Normal 70-99 [facility] Comment on above: Performed By: #### L 3000.0800, L503.6030, L504.2610, L100.0100, L503.6550, L503.0106, L500.4050 #### [facility] [address] [place], [address] Potassium [Moles/Vol] 4.2 mmol/L Normal 3.3-5.1 [facility] Comment on above: Performed By: #### L 3000.0800, L503.6030, L504.2610, L100.0100, L503.6550, L503.0106, L500.4050 #### [facility] [address] [place], [address] Sodium [Moles/Vol] 139 mmol/L Normal 133-145 [facility] Comment on above: Performed By: #### L 3000.0800, L503.6030, L504.2610, L100.0100, L503.6550, L503.0106, L500.4050 #### [facility] [address] [place], [address] T PROT 7.0 g/dL Normal 5.9-8.4 [facility] Comment on above: Performed By: #### L 3000.0800, L503.6030, L504.2610, L100.0100, L503.6550, L503.0106, L500.4050 #### [facility] [address] [place], [address] Urea nitrogen [Mass/Vol] 10 mg/dL Normal 4-19 [facility] Comment on above: Performed By: #### L 3000.0800, L503.6030, L504.2610, L100.0100, L503.6550, L503.0106, L500.4050 #### [facility] [address] [place], [place], [address] Eosinophil percentageOrdered By: Ratna Bell on 05-11-2025 Eosinophils/100 WBC (Bld) 2.5 % 0-5 [facility] Erythrocyte distribution wid th ratioOrdered By: [facility] Arabella on 05-11-2025 Erythrocyte distribution width (RBC) [Ratio] 14.6 % 11.6-14.6 [facility] Erythrocyte distribution wid th standard deviationOrdered By: [facility] Arabella on 05-11-2025 Erythrocyte distribution width (RBC) [Ratio] 44.8 fl High 35.1-43.9 [facility] Ferritinon 05-11-2025 Ferritin [Mass/Vol] 48 ng/mL Normal 22-378 [facility] Comment on above: Performed By: #### L 3000.0800, L503.6030, L504.2610, L100.0100, L503.6550, L503.0106, L500.4050 ####[facility] [address] [place], [place], [id number] Glomerular filtration rate ( GFR) estimation/1.73 sq m using serum, plasma, or whole bOrdered By: [facility] on 05-11-2025 GFR/1.73 sq M.predicted among non-blacks MDRD (S/P/Bld) [Vol rate/Area] 93 mL/min/{1.73_m2} >60 [facility] Comment on above: mL/min/1.73m2 CKD-EP I Creatinine Equation (2020) Hematocrit Auto (Bld) [Volum e fraction]Ordered By: Ratna Bell on 05-11-2025 Hematocrit (Bld) [Volume fraction] 36.9 % Low 37-47 [facility] Hemoglobin measurementOrdere d By: Ratna Bell on 05-11-2025 Hemoglobin (Bld) [Mass/Vol] 12.1 g/dL 12.0-15.0 [facility] Immature granulocytes/100 WB C Auto (Bld)Ordered By: [facility] on 05-11-2025 Immature granulocytes/100 WBC (Bld) 0.300 % 0.0-0.9 [facility] Comment on above: IG% - Immature Granu locytes (promyelocytes, myelocytes and metamyelocytes) > 1% indicates that a LEFT SHIFT is Present. Iron measurement (mass/mass) Ordered By: Ratna Bell on 05-11-2025 Iron (Unsp spec) [Mass/Mass] 61 ug/dL 50-170 [facility] Iron+Iron Binding Capacityon 05-11-2025 Iron [Mass/Vol] 61 ug/dL Normal 50-170 [facility] Comment on above: Performed By: #### L 3000.0800, L503.6030, L504.2610, L100.0100, L503.6550, L503.0106, L500.4050 #### [facility] [address] [facility] [address] IRON SATURATION 15.8 Normal 13-59 [facility] Comment on above: Performed By: #### L 3000.0800, L503.6030, L504.2610, L100.0100, L503.6550, L503.0106, L500.4050 #### [facility] [address] [place], [address] TIBC 387 ug/dL Normal 250-450 [facility] Comment on above: Performed By: #### L 3000.0800, L503.6030, L504.2610, L100.0100, L503.6550, L503.0106, L500.4050 #### [facility] [address] [place], [address] UIBC 326 ug/dL Normal 228-428 [facility] Comment on above: Performed By: #### L 3000.0800, L503.6030, L504.2610, L100.0100, L503.6550, L503.0106, L500.4050 #### [facility] [address] [place], [address] LDHon 05-11-2025 LDH 192 U/L Normal 84-246 [facility] Comment on above: Order Comment: 1 Performed By: #### L 3000.0800, L503.6030, L504.2610, L100.0100, L503.6550, L503.0106, L500.4050 ####[facility] [address] [place], [address] Laboratory - Chemistry and C hemistry - challengeOrdered By: [facility] on 05-11-2025 AST [Catalytic activity/Vol] 22 U/L <32 [facility] Lactate dehydrogenase (LDH) measurementOrdered By: [facility] on 05-11-2025 LDH [Catalytic activity/Vol] 192 U/L 84-246 [facility] MCV (mean corpuscular volume ) determinationOrdered By: [facility] on 05-11-2025 MCV (RBC) [Entitic vol] 83.9 fL 81-99 [facility] Mean corpuscular hemoglobin (MCH) determinationOrdered By: [facility] Arabella on 05-11-2025 MCH (RBC) [Entitic mass] 27.5 pg 27.0-32.0 [facility] Mean corpuscular hemoglobin concentration (MCHC) determinationOrdered By: [facility] Arabella on 05-11-2025 MCHC (RBC) [Mass/Vol] 32.8 g/dL 32-36 [facility] Mean platelet volume determi nationOrdered By: [facility] on 05-11-2025 Platelet mean volume (Bld) [Entitic vol] 10.0 fL 6.2-12.0 [facility] Monocyte percentageOrdered B y: Ratna Bell on 05-11-2025 Monocytes/100 WBC (Bld) 6.4 % 0-10 [facility] Neutrophil percentageOrdered By: [facility] on 05-11-2025 Neutrophils/100 WBC (Bld) 73.9 % High 47-70 [facility] No Panel InformationOrdered By: Ratna Bell on 05-11-2025 Hepatitis Interpretation See comment [facility] Comment on above: TEST RESULTS LIMITSV iral Hepatitis HBV, HCV HBsAg Screen Negative Negative Hep B Surface Ab, Qual Non Reactive Non Reactive: Not immune to HBV infection. Anti-HBs undetectable or less than 10 mIU/mL. Reactive: Evidence of HBV immunity. Anti-HBs levels greater than 10 mIU/mL. Hep B Core Ab, Tot Negative NegativeInterpretation HBV Serology Interpretation Chart Interpretation HBsAg anti-HBs anti-HBc anti-HBc IgM [place] - Analyte present: + Analyte absent: - Test not indicated: TNI Susceptible (never infected and no evidence - - - TNI of vaccination) Immune due to natural resolved infection - + + TNI Immune due to vaccination - + - TNI Acute Infection + - + + Chronic infection + - + - Interpretation unclear* - - + +/- *Multiple possibilities: resolved infection (most common); false- positive anti-HBc (susceptible); low-level chronic infection; resolving acute infection. HCV Ab Non Reactive Non ReactiveInterpretation: Not infected with HCV unless early or acute infection issuspected (which may be delayed in an immunocompromisedindividual), or other evidence exists to indicate HCV infection. TESTING PERFORMED AT [facility]. ORIGINAL REPORT ON FILE IN LAB CONTAINS ADDITIONAL TEST SITE INFORMATION. Unsaturated Iron Binding Capacity 326 ug/dL 228-428 [facility] Nucleated red blood cell per centageOrdered By: Ratna Bell on 05-11-2025 Nucleated RBC/100 WBC (Bld) [Ratio] 0 % 0-5 [facility] Oncology Visit Reporton 04-24 Oncology Visit Report [facility] [place] [address] OFFICE VISIT Date of Service: 05/11/25 1012 MR#: [id number] Acct: [id number] Name: JULIA PLASCENCIA Rep #: [id number] : 1945 From: Ratna Bell MD Age/Sex: 80/F Location: [facility] Status: Signed HPI Subjective Date of Service 05/11/25 Chief Complaint left breast mass, lymphoma History of Present Illness 80-year-old female who felt a painless lump in the left breast in February 2025 and loss 20 pounds of weight despite a preserved appetite. April 04, 2025 diagnostic mammogram: IMPRESSION: Abnormal intramammary lymph node in the left breast at 2 o'clock 9 cm from the nipple. April 04, 2025 breast ultrasound: IMPRESSION: Abnormal intramammary lymph node in the left breast at 2 o'clock 9 cm from the nipple. April 10, 2025 Left breast, mass/lymph node, breast, core biopsy: - Lymphoid tissue negative for carcinoma ??? see note and Comment. - Mature adipose tissue. - No breast epithelium observed. Note: This case will be sent to [facility] for formal consultation with the hematopathology division of the Pathology Department, to rule out a lymphoproliferative disorder. A separate report from [facility] will follow. IHCs were obtained and will be reported by the individual pension consultant pathologist. COMMENT: A portion of the tissue was sent in RPMI for flow cytometry to [facility]. The flow cytometry showed ???no immunophenotypic evidence of an abnormal population of B lymphocytes or T lymphocytes. Few B-cells detected???. Diagnosis provided by Dr Ashlyn Baeza ([facility] hematopathology division) This addendum is added to incorporate an outside pathology consultation report. The case was examined at [facility] by Dr. Monte (#[id number]) and the following diagnosis was rendered. A. 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 Diagnosis Comment: As described in detail in the synoptic report below, the assessment is somewhat challenging due to the very scant nature of the specimen. However, overall, there is convincing evidence of a neoplastic large B-cell infiltrate expressing germinal center associated markers (BCL6, CD10) and showing a diffuse infiltrative pattern not associated with follicular dendritic cell meshworks. The findings are consistent with an aggressive B-cell lymphoma. FISH studies have been ordered, and the results will be reported in an addendum. Addendum: No rearrangements of BCL2, BCL6 or MYC genes are detected by FISH. 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 [facility] Medical History (Updated 05/11/25 @ 10:[address] Ratna Bell MD) DLBCL (diffuse large B cell lymphoma) Hypothyroidism Wears partial dentures Wears glasses Post-menopausal Non-smoker [...] 3-4 times per week seatbelt use: always ROS Constitutional Constitutional: Reports fatigue and weight loss; Denies anorexia, fever(s) or night sweats Eyes Eyes: Reports systems reviewed and no addt'l complaints, except as documented ENT HEENT: Reports systems reviewed and no addt'l complaints, except as documented; Denies mouth lesions Cardiovascular Cardiovascular: Reports systems reviewed and no addt'l complaints, except as documented; Denies chest pain with activity or edema Respiratory/Chest Respiratory/Chest: Reports systems reviewed and no addt'l complaints, except as documented; Denies cough or dyspnea Gastrointestinal Gastrointestinal: Reports systems reviewed and no addt'l complaints, except as documented; Denies abdominal pain, change in bowel habits, hematochezia or melena Genitourinary Genitourinary: Reports systems reviewed and no addt'l complaints, except as documented Musculoskeletal Musculoskeletal: Reports systems reviewed and no addt'l complaints, except as documented (more content not included)... Normal [facility] Platelet countOrdered By: Prosper Bell on 05-11-2025 Platelets (Bld) [#/Vol] 248 10*3/uL 150-450 [facility] Potassium measurement (mass/ volume)Ordered By: Ratna Bell on 05-11-2025 Potassium (Unsp spec) [Mass/Vol] 4.2 mmol/L 3.3-5.1 [facility] RBC Auto (Bld) [#/Vol]Ordere d By: Ratna Bell on 05-11-2025 RBC (Bld) [#/Vol] 4.40 10*6/uL 4.2-5.4 [facility] Serum creatinine measurement (mass/volume)Ordered By: Ratna Bell on 05-11-2025 Creatinine [Mass/Vol] 0.53 mg/dL Low 0.70-1.20 [facility] Serum globulin measurementOr dered By: Ratna Bell on 05-11-2025 Globulin (S) [Mass/Vol] 2.7 g/dL 2.2-4.2 [facility] Serum glucose measurement (m ass/volume)Ordered By: Ratna Bell on 05-11-2025 Glucose [Mass/Vol] 75 mg/dL 70-99 [facility] Serum hepatitis B virus core antibody detectionOrdered By: Ratna Bell on 05-11-2025 HBV core Ab Ql (S) Not Reportable [facility] Serum or plasma alanine morejon otransferase (ALT) measurementOrdered By: Ratna Bell on 05-11-2025 ALT [Catalytic activity/Vol] 20 U/L <35 [facility] Serum or plasma albumin arya urement (mass/volume)Ordered By: Ratna Bell on 05-11-2025 Albumin [Mass/Vol] 4.3 g/dL 3.4-4.8 [facility] Serum or plasma albumin/glob ulin mass ratioOrdered By: Ratna Bell on 05-11-2025 Albumin/Globulin [Mass ratio] 1.6 {ratio} 0.9-2.4 [facility] Serum or plasma alkaline altagracia sphatase measurementOrdered By: Robpreeti Bell on 05-11-2025 ALP [Catalytic activity/Vol] 84 U/L 35-104 [facility] Serum or plasma calcium arya urement (mass/volume)Ordered By: Robpreeti Bell on 05-11-2025 Calcium [Mass/Vol] 9.7 mg/dL 7.6-11.0 [facility] Serum or plasma ferritin aashish surement (mass/volume)Ordered By: Ratna Bell on 05-11-2025 Ferritin [Mass/Vol] 48 ng/mL 22-378 [facility] Serum or plasma hepatitis B virus surface antigen detection by immunoassayOrdered By: Robpreeti Bell on 05-11-2025 HBV surface Ag IA Ql Not Reportable [facility] Serum or plasma iron saturat ion measurement (mass fraction)Ordered By: Ratna Bell on 05-11-2025 Iron saturation [Mass fraction] 15.8 % 13-59 [facility] Serum or plasma urea nitroge n measurement (mass/volume)Ordered By: Ratna Bell on 05-11-2025 Urea nitrogen [Mass/Vol] 10 mg/dL 4-19 [facility] Sodium levelOrdered By: Rob preeti Arabella on 05-11-2025 Sodium [Moles/Vol] 139 mmol/L 133-145 [facility] Total proteinOrdered By: Dion cristiano Arabella on 05-11-2025 Protein [Mass/Vol] 7.0 g/dL 5.9-8.4 [facility] Vitamin B12on 05-11-2025 Cobalamin (Vitamin B12) [Mass/Vol] 2537 pg/mL High 180-914 [facility] Comment on above: Performed By: #### L 3000.0800, L503.6030, L504.2610, L100.0100, L503.6550, L503.0106, L500.4050 ####[facility] [address] [place], [address] Vitamin B12 ser/plasOrdered By: Ratna Bell on 05-11-2025 Cobalamin (Vitamin B12) [Mass/Vol] 2537 pg/mL High 180-914 [facility] White blood cell (WBC) count Ordered By: Ratna Bell on 05-11-2025 WBC (Bld) [#/Vol] 7.1 10*3/uL 4.4-11.0 [facility] Cardiology Visit Reporton Cardiology Visit Report [facility] [address] [place], [place] [address] OFFICE VISIT Date of Service: 05/08/25 MR#: [id number] Acct: [id number] Name: JULIA PLASCENCIA Rep #: [id number] : 1945 Provider: Dr. Leonel Feng MD Age/Sex: 80/F Location: [facility] Status: Signed HPI HPI History of Present Illness Details: 80-year-old female with past medical history significant for diabetes mellitus and hypothyroidism. She has recently had Holter monitoring done for her complaints of palpitations. She was noted to have 1% burden of PACs with the longest run of atrial tachycardia consisting of 18 beats at 101 bpm. She has been referred to us for evaluation and management. Per patient, she feels heart palpitations on an infrequent basis, maybe once a week. She feels her heart racing briefly. No associated lightheadedness or dizziness. No syncope or presyncope. She denies any chest pains or shortness of breath either at rest or with exertion. No orthopnea. No PND. No ankle edema. Patient's TSH was checked by her primary care physician and it was within normal limits. Echocardiogram showed normal LV systolic function. Stage II diastolic dysfunction was noted. Mild aortic valve stenosis. Patient recently has had a biopsy done for a mass in her left axilla. It has come back as positive for B-cell lymphoma. She is scheduled to see an oncologist. 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: No Accompanied by: Is patient in pain?: No Allergies No Known Allergies Allergy (Verified 05/08/25 08:53) Medications ???Medication ???Instructions ???Recorded ???Confirmed ???Type calcium carbonate (Calcium 500) 500 mg PO DAILY 10/13/17 04/10/25 History folic acid 0.8 mg capsule 800 mcg PO QDAY 10/13/17 04/10/25 History levothyroxine 75 mcg capsule [...] 01/09/25 04/10/25 Hi story iron) tablet (Feosol) gabapentin 300 mg capsule 300 mg PO QHS PRN 05/08/25 5 History glimepiride 1 mg tablet 1 mg PO QDAY 05/08/25 05/08/25 His tory Ejection fraction %: 65 Have you fallen in the past year?: No PFSH Medical History B-cell lymphoma Hypothyroidism Wears partial dentures Wears glasses Post-menopausal Non-smoker [...] 3-4 times per week seatbelt use: always ROS Const Const: Positive for fatigue; Negative for weakness Eyes Eyes: Negative for change in vision ENT ENT: Negative for dizziness or balance problems Cardio Chest Pain: No Palpitations: Yes feels like its: fast Edema: None Resp Respiratory: Negative for SOB with activity, SOB at rest or SOB orthopnea SOB lying down GI GI: Negative nausea or heartburn Musc Musc: Negative for balance problems Neuro Neuro: Negative for dizziness, lightheadedness, near syncope, syncope or weakness Endo Endo: Positive for fatigue Cardiology Exam Const Appearance: comfortable and no acute distress Nutritional Appearance: well nourished Neck Neck: no JVD Carotids: Negative bruit Chest Auscultation: Bilateral: Clear to Auscultation Cardio Rate: regular rate Rhythm: regular rhythm Heart sounds: S1 normal and S2 normal Neuro General: patient alert, patient awake an (more content not included)... Normal [facility] SURG PATH REQUESTon 04-25-20 25 Addendum Normal [facility] Comment on above: Result Comment: No r earrangements of BCL2, BCL6 or MYC genes are detected by FISH. 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 Addendum electronically signed by Jayden Monte MD, PhD on 05/02/2025 at 1906 EDT Performed By: #### S URGP #### [facility] (DEFAULT) [address] [place] [address] Case Report Normal [facility] Comment on above: Result Comment: Surg ical Pathology Report Case: [id number] Authorizing Provider: Kandi Rodriguez MD Collected: 04/25/2025 07:53 AM Ordering Location: [facility] Received: 04/25/2025 07:53 AM HOMER Pathologist: Jayden Monte MD, PhD Specimen: SURG PATH, A) Left breast lymph node, left axilla Performed By: #### S URGP #### [facility] (DEFAULT) [address] [place], [place] [id number] Clinical History Normal [facility] Comment on above: Result Comment: Rece ived is a request for second opinion consultation by Dr. Kandi Rodriguez at [facility]. Clinical Information: 80 F with Left breast/axillary mass, core bx [facility] [id number]. Lymphoid tissue negative for carcinoma. Flow done @ [facility] is negative for LND. Previous Pathology/History of Cancer/Radiation Therapy: NA Note: The slide images are available on the [place] [id number]. Physician Comments/Concerns: R/O lymphoproliferative disorder Preoperative Diagnosis: Left breast mass / lymph node. Performed By: #### S URGP #### [facility] (DEFAULT) [address] [place] [address] Diagnosis Comments Normal [facility] Comment on above: Result Comment: As d escribed in detail in the synoptic report below, the assessment is somewhat challenging due to the very scant nature of the specimen. However, overall, there is convincing evidence of a neoplastic large B cell infiltrate expressing germinal center associated markers (BCL6, CD10) and showing a diffuse infiltrative pattern not associated with follicular dendritic cell meshworks. The findings are consistent with an aggressive B-cell lymphoma. FISH studies have been ordered, and the results will be reported in an addendum. Dr. Carolina najera has also reviewed the case and concurs with the rendered diagnosis. Performed By: #### S URGP #### [facility] (DEFAULT) [address] [place] [address] Gross Description Normal [facility] Comment on above: Result Comment: The following material(s) are received from [facility], [address] [place] [address] with an identifying Surgical Pathology Report: 2 H&E and 10 non-H&E slides labeled [id number]. Subsequently received from the same facility on April 27, 2025, is/are 1 paraffin block(s) marked [id number] (A2), which is/are submitted to [facility] Histology/IHC Laboratory for re-cutting and additional staining: CD30 quant, CMYC quant, EBV-encoded RNA (BALA) by in situ hybridization (AMOL) with negative control, FISH for MYC, BCL2, BCL6. Outside materials are returned in 60 days under separate cover with our number recorded on them. Grosser for this case was: Nneka Cooper Performed By: #### S URGP #### [facility] (DEFAULT) [address] [place] [address] Microscopic Description Normal [facility] Comment on above: Result Comment: A mi croscopic examination was performed. Synoptic report Specimen Site: Left breast mass Procedure: Needle core biopsy Diagnosis: Findings consistent with aggressive B-cell lymphoma Microscopic description: Sections of the biopsy show fragments of soft tissue as well as very scant lymphoid tissue containing a mixed cellular infiltrate composed of small lymphocytes, some vessels, some histiocytes, and scattered large atypical lymphoid cells with irregular nuclear contours, vesicular chromatin, mild to moderate amounts of cytoplasm, and prominent nucleoli. --Ancillary Studies-- Flow cytometry: Flow cytometry was peformed on a portion of the biopsy and showed no evidence of an abnormal B cell or T cell population, though it is noted that few B lineage cells were detected in this analysis. Molecular studies: FISH testing for MYC, BCL2 and BCL6 genes is pending, and the results will be reported in a subsequent addendum. Special stains: Not performed Immunohistochemistry (IHC)/in situ hybridization (AMOL): Neoplastic cells are positive for: BCL6 (>80%), CD10 (>80%), CD20, Ki67 (>80%) Neoplastic cells are negative for: CD5, CD23, C-MYC (favored 20% or less positivity, which is below the cutoff), Cyclin D1, EBV-encoded RNA (BALA) Other IHC findings: A CD3 stain labels background admixed small T cells. The CD23 does not label associated follicular dendritic cell meshworks. A BCL2 stain labels small lymphocytes and occasional larger cells, but most of the neoplastic cells are favored to be negative for BCL2 staining. A CD30 stain (quantitative) labels approximately 1-2% of cells in the tissue; these may represent rare lymphoma cells or possibly reactive immunoblasts. * The above synoptic report complies, in slightly modified form, with the guidelines of the [employer] [place] [employer] for the reporting of cancer specimens. *Lymphoid neoplasms are classified according to: - WHO Classification of Tumours Editorial Board. Haematolymphoid tumours. Gagandeep (Lyly): International Agency for Research on Cancer; (WHO classification of tumours series, 5th ed.; vol. 112021). https://publications.iarc.fr. - The International Consensus Classification of Mature Lymphoid Neoplasms: a report from the Clinical Advisory Committee. Blood. 2021May 08;140(11):4391-2275. doi: 10.1182/blood.9684017869. Erratum in: Blood. 2022Sep 18;141(4):437. PMID: 84001171; PMCID: ZHC2032679. Manual quantitative immunohistochemical assessment of BCL2, BCL6, CD10, MUM1, MYC, and Ki67 is performed to determine prognostic categories of diffuse large B cell lymphoma (DLBCL), as per established guidelines. DLBCL is classified as germinal center B cell-like (GCB) subtype versus non-GCB by Thierry' Algorithm, and the positivity cutoff value for CD10, MUM1, and BCL6 immunohistochemistry is greater than or equal to 30% of the tumor cells. Of note, occasionally there is both CD10 and MUM1 expression in DLBCL. JH15-qyuodopi, MUM1-positive DLBCLs are classified as GCB subtype per Thierry' Algorithm; however, these lymphomas are not well-characterized and may have a different clinical course compared to typical GCB DLBCL. Positivity cutoff values for MYC and BCL2 immunohistochemistry are greater than or equal to 40% and greater than or equal to 50% of the tumor cells, respectively. Manual quantitative immunohistochemical assessment of CD30 is also performed to provide therapeutic options and prognostic information for DLBCL with a positivity cutoff value of greater than 1% and 20%, respectively. All controls show appropriate reactivity. All immunohistochemistry (IHC), in situ hybridization (AMOL), and histochemical tests were developed by and are performed at the [facility] Clinical Laboratory, Histology and IHC Lab, [address] [place] [address]. All Immunofluorescent (IF) tests were developed by and are performed at the [facility], Renal Division, [address] [place] [address]. All tests reported here, except for PD-L1, have not been cleared by or approved by the US Food and Drug Administration (FDA). The laboratory is regulated under CLIA as qualified to perform high-complexity testing. The tests are used for clinical purposes. They should not be regarded as investigational or for research. All controls show appropriate reactivity. All immunohistochemistry (IHC), in situ hybridization (AMOL), and histochemical tests were developed by and are performed at the [facility] Clinical Laboratory, Histology and IHC Lab, [address] [place] [address], [place] [address]. All Immunofluorescent (IF) tests were developed by and are performed at the [facility], Renal Division, [address] [place] [address]. All tests reported here, except for PD-L1, have not been cleared by or approved by the US Food and Drug Administration (FDA). The laboratory is regulated under CLIA as qualified to perfor (more content not included)... Performed By: #### S URGP #### [facility] (DEFAULT) [address] [place] [address] Pathologic Diagnosis [facility] Comment on above: Result Comment: Outs irma Slides [id number] (04/10/25) A. 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 at 1601 EDT Performed By: #### S URGP #### [facility] (DEFAULT) [address] [place] [address] Professional Interpretation Performed at: [facility] Comment on above: Result Comment: [facility] For Immediate Release [facility] Yes [address] [place] [address] Performed By: #### S URGP #### [facility] (DEFAULT) [address] [place] [address] IMMUNOPHENOTYPINGon 04-10-20 BKR DX CODE Use Ordering [facility] Comment on above: Performed By: #### I MMUNOPHENOTYPING #### [facility] (DEFAULT) [address] [place] [address] Flow Interpreted by: Maksim Baeza MD, PhD [facility] Comment on above: Performed By: #### I MMUNOPHENOTYPING #### [facility] (DEFAULT) [address] [place] [address] IMMUNOPHENOTYPING FLOW See Scanned Result Normal [facility] Comment on above: Performed By: #### I MMUNOPHENOTYPING #### [facility] (DEFAULT) [address] [place] [address] SAMPLE TYPE Tissue/Fluid Normal [facility] Comment on above: Performed By: #### I MMUNOPHENOTYPING #### [facility] (DEFAULT) [address] [place] [address] Immunohistochemical Stainson 04-10-2025 Immunohistochemical Stains Patient Age/Sex Location Account Attending Physician JULIA PLASCENCIA 80/F LABSPEC [id number] Dr. Von Velez MD Specimen: [id number] Received: 04/10/25 Status: OSMAN Pope Num: [id number] Spec Type: BREAST BX Subm Dr: Dr. Von Velez MD HEADER OPERATION: Left breast biopsy PRE-OP DIAGNOSIS: Left breast mass / lymph node TISSUE SUBMITTED: A- Left breast lymph node / left axilla MICROSCOPIC DIAGNOSIS A. Left breast, mass/lymph node, breast, core biopsy: - Lymphoid tissue negative for carcinoma - see note and Comment. - Mature adipose tissue. - No breast epithelium observed. Note: This case will be sent to [facility] for formal consultation with the hematopathology division of the Pathology Department, to rule out a lymphoproliferative disorder. A separate report from [facility] will follow. IHCs were obtained and will be reported by the individual pension consultant pathologist. COMMENT: A portion of the tissue was sent in RPMI for flow cytometry to [facility]. The flow cytometry showed no immunophenotypic evidence of an abnormal population of B lymphocytes or T lymphocytes. Few B-cells detected. Diagnosis provided by Dr Ashlyn Baeza ([facility] hematopathology division) (see report scanned into the EMR). MICROSCOPIC DESCRIPTION Slides are reviewed. All matched controls reacted appropriately. These tests were developed and their performance characteristics determined by [facility]. They may not have been cleared or approved by the U.S. Food and Drug Administration. The FDA has determined that such clearance or approval is not necessary.??? The above immunohistochemical???marke rs and/or special stains have been reviewed by the Pathologist. GROSS DESCRIPTION A. Received in saline labeled with the patient's name and date of . Designated as L breast axillary lymph node are 4 hong to yellow tissue cores, 0.4 cm to 1.1 cm in length by 0.1 cm in diameter. Touch preparation is made. 1 core is placed in RPMI for potential future ancillary studies. The remainder of the specimen is entirely submitted in 2 cassettes as follows: A1: 2 yellow fatty tissue coresA2: [address] 04/10/2025 CPT:53979,69861, 89740z6,11422 Patient Age/Sex Location Account Attending Physician JULIA PLASCENCIA 80/F LABSPEC [id number] Dr. Von Velez MD ADDENDUM Addendum 1 Entered: 05/03/25 This addendum is added to incorporate an outside pathology consultation report. The case was examined at [facility] by Dr. Monte (#[id number]) and the following diagnosis was rendered. A. 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 Diagnosis Comment: As described in detail in the synoptic report below, the assessment is somewhat challenging due to the very scant nature of the specimen. However, overall, there is convincing evidence of a neoplastic large B-cell infiltrate expressing germinal center associated markers (BCL6, CD10) and showing a diffuse infiltrative pattern not associated with follicular dendritic cell meshworks. The findings are consistent with an aggressive B-cell lymphoma. FISH studies have been ordered, and the results will be reported in an addendum. Addendum: No rearrangements of BCL2, BCL6 or MYC genes are detected by FISH. 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 Please see complete above mentioned consultation report in EMR Addendum Signed (signature on file) Dr. Kandi Rodriguez MD 05/03/25 1002 Patient Age/Sex Location Account Attending Physician JULIA PLASCENCIA 80/F LABSPEC [id number] Dr. Von Velez MD Signed (signatur (more content not included)... Normal [facility] Comment on above: Performed By: #### P [facility] ####[facility] [id number] [place], [address] Surgery Visit Reporton 04-10 Surgery Visit Report [facility] [address] [place] [address] OFFICE VISIT Date of Service: 04/10/25 MR#: [id number] Acct: [id number] Name: JULIA PLASCENCIA Rep #: [id number] : 1945 Provider: Dr. Von chun MD Age/Sex: 80/F Location: [facility] Status: Signed Intake Vital Signs 02/07/25 07:30 04/10/25 07:55 Height 5 ft 5 in 5 ft 5 in Weight: 162 lb BMI 26.9 BP 131/76 H Blood Pressure Location Rt brachial Position Sitting Respiration 16 Intake Visit Reasons: BIRADS 4 Chief Complaint: left breast mass Wall Steamer Required: No Is patient in pain?: No [...] cooperative Orientatio (more content not included)... Normal [facility] Bilat Brst Rey Stand Aloneo n 04-04-2025 [facility] [address] [place], [place] [address] Bilat Brst Rey Stand Alone MR#: [id number] Acct: [id number] Name: JULIA PLASCENCIA Rep #: [id number] : 1945 F 80 From: Pinky William MD PCP: Dr. Cachorro Gonzalez MD Status: [facility] Study: Bilat Brst Rey Stand Alone Date of Exam: 03/24 10/18 Exam# [id number] Ordering Dr: Cachorro Gonzalez MD EXAM: DIAG MAMM W/CAD, BILAT; BREAST [...] be mailed to the patient. Reading Location: [facility] CC: Dr. Cachorro Gonzalez MD Hydraulic Miner: Signed Normal [facility] Breast Limited Unilateralon 04-04-2025 Breast Limited Unilateral [facility] [address] [place] [address] [id number] Breast Limited Unilateral MR#: [id number] Acct: [id number] Name: JULIA PLASCENCIA Rep #: [id number] : 1945 F 80 From: Pinky William MD PCP: Dr. Cachorro Gonzalez MD Status: REG CLI Study: Breast Limited Unilateral Date of Exam: Exam# [id number] Ordering Dr: Cachorro Gonzalez MD EXAM: DIAG MAMM W/CAD, BILAT; BREAST [...] be mailed to the patient. Reading Location: [facility] CC: Dr. Cachorro Gonzalez MD Hydraulic Miner: Signed Normal [facility] Breast imaging reportOrdered By: Pinky William on 04-04-2025 Study report [facility] [address] [place] [place], [place] [address] DIAG MAMM W/CAD, BILAT MR#: [id number] Acct: [id number] Name: JULIA PLASCENCIA Rep #: [id number] : 1945 F 80 From: Annie William MD PCP: Dr. Cachorro Gonzalez MD Status: REG C SAIB Study:DIAG MAMM W/CAD, BILAT Date of Exam: 04/04/25 Exam# [id number] Ordering Dr: Cachorro Gonzalez MD EXAM: DIAG MAMM W/CAD, BILAT; BREAST [...] be mailed to the patient. Reading Location: [id number] CC: Dr. Cachorro Gonzalez MD ~ Hydraulic Miner: Signed [facility] Study report [facility] [address] [place] [address] [id number] Bilat Brst Rey Stand Alone MR#: [id number] Acct: [id number] Name: JULIA PLASCENCIA Rep #: [id number] : 1945 F 80 From: Annie William MD PCP: Dr. Cachorro Gonzalez MD Status: CARLO CELESTIN Study:Bilat Brst Rey Stand Alone Date of Exa m: 04/04/25 Exam# [id number] Ordering Dr: Cachorro Gonzalez MD EXAM: DIAG MAMM W/CAD, BILAT; BREAST [...] be mailed to the patient. Reading Location: [facility] CC: Dr. Cachorro Gonzalez MD ~ Hydraulic Miner: Signed [facility] DIAG MAMM W/CAD, BILATon DIAG MAMM W/CAD, BILAT [facility] [address] [place] [address] DIAG MAMM W/CAD, BILAT MR#: [id number] Acct: [id number] Name: JULIA PLASCENCIA Rep #: [id number] : 1945 F 80 From: Pinky William MD PCP: Dr. Cachorro Gonzalez MD Status: REG CLI Study: DIAG MAMM W/CAD, BILAT Date of Exam: 04/04/25 Exam# [id number] Ordering Dr: Cachorro Gonzalez MD EXAM: DIAG MAMM W/CAD, BILAT; BREAST [...] be mailed to the patient. Reading Location: [id number] CC: Dr. Cachorro Gonzalez MD Hydraulic Miner: Signed Normal [facility] Echocardiogram study reportO rdered By: Agustin Morataya on 03-05-2025 Study report [facility] [address] [place] [address] Echo Complete 03/03/25 2351 MR#: [id number] Acct: [id number] Name: JULIA PLASCENCIA Rep #:[id number] : 1945 79 From: Agustin Stewart Attending Dr: Dr. Cachorro Gonzalez MD Status: REG CLI Ordering Dr: Cachorro Gonzalez MD Date: Location: CVS Sex: F C Admitted: Reason For Study [...] Doppler Measurements & Calculations MV E max rex: 131.0 cm/sec Lat Peak E' Rex: 10.0 cm/sec Med Peak E' Rex: 7.1 cm/sec MV A max rex: 92.7 cm/sec E/E' lat: 13.1 E/E' med: 18.5 MV E/A: 1.4 MV V2 max: 148.4 cm/sec MV P1/2t max rex: 159.6 cm/sec Ao V2 max: 270.7 cm/sec [...] PI dec slope: 199.9 cm/sec2 TR max rex: 322.9 cm/sec TR max P.7 mmHg ECHO/Echo Complete Interpretation Summary Normal LV size. Left ventricular systolic function is normal. The left ventricular ejection fraction is 65 %. Stage 2 diastolic dysfunction. Moderate focal aortic valve calcification. Mean aortic valve gradient 16 mmHg. Moderate (2+) eccentric mitral valve insufficiency. The left atrium is severely enlarged. Ordering Physician: Cachorro Gonzalez Referring Physician: Cachorro Gonzalez Performed By: Marian Bermudez, RENUKA, RVT 03/05/251656 Date _ Agustin Morataya MD CC: Dr. Cachorro Gonzalez MD ~ Date Dictated: 03/03/25 5546 Date Transcribed: 03/05/251656 Hydraulic Miner: Signed [facility] Work Phone: Echo Completeon 03-04-2025 Echo Complete [facility] [address] [place] [address] Echo Complete 03/03/25 2351 MR#: [id number] Acct: [id number] Name: JULIA PLASCENCIA Rep #: [id number] : 1945 79 From: Agustin Morataya MD Attending Dr: Dr. Cachorro Gonzalez MD Status: REG CLI Ordering Dr: Cachorro Gonzalez MD Date: 03/04/25 Location: [facility] Sex: F C Admitted: Reason For [...] sec Doppler Measurements Calculations MV E max rxe: 131.0 cm/sec Lat Peak E' Rex: 10.0 cm/sec Med Peak E' Rex: 7.1 cm/sec MV A max rex: 92.7 cm/sec E/E' lat: 13.1 E/E' med: 18.5 MV E/A: 1.4 MV V2 max: 148.4 cm/sec MV P1/2t max rex: 159.6 cm/sec Ao V2 max: 270.7 cm/sec [...] PI dec slope: 199.9 cm/sec2 TR max rex: 322.9 cm/sec TR max P.7 mmHg ECHO/Echo Complete Interpretation Summary Normal LV size. Left ventricular systolic function is normal. The left ventricular ejection fraction is 65 %. Stage 2 diastolic dysfunction. Moderate focal aortic valve calcification. Mean aortic valve gradient 16 mmHg. Moderate (2+) eccentric mitral valve insufficiency. The left atrium is severely enlarged. Ordering Physician: Cachorro Gonzalez Referring Physician: Cachorro Gonzalez Performed By: Marian Bermudez, RDCS, RVT 03/05/251656 Date Agustin Morataya MD CC: Dr. Cachorro Gonzalez MD Date Dictated: 03/03/25 4334 Date Transcribed: 03/05/251656 Hydraulic Miner: Signed Normal [facility] Anion gap in Serum or Plasma Ordered By: Cachorro Gonzalez on 02-23-2025 Anion gap [Moles/Vol] 11 mmol/L - [facility] BUN/creatinine ratioOrdered By: Cachorro Gonzalez on 02-23-2025 Urea nitrogen/Creatinine [Mass ratio] 17.1 mg/mg - [facility] Basic Metabolic Profile (BMP )on 02-23-2025 BUN/CRE 17.1 RATIO Normal 06-12 [facility] Comment on above: Performed By: #### L 501.9520, L100.0500, L100.4500, L500.2500 ####[facility] [address] [place], [address] Calcium [Mass/Vol] 9.5 mg/dL Normal 7.6-11.0 [facility] Comment on above: Performed By: #### L 501.9520, L100.0500, L100.4500, L500.2500 ####[facility] [address] [place] [place], [address] Chloride [Moles/Vol] 103 mmol/L Normal 98-108 [facility] Comment on above: Performed By: #### L 501.9520, L100.0500, L100.4500, L500.2500 ####[facility] [address] [place], [address] CO2 [Moles/Vol] 25.8 mmol/L Normal 21.0-32.0 [facility] Comment on above: Performed By: #### L 501.9520, L100.0500, L100.4500, L500.2500 ####[facility] [address] [place], [address] Creatinine [Mass/Vol] 0.51 mg/dL Low 0.70-1.20 [facility] Comment on above: Performed By: #### L 501.9520, L100.0500, L100.4500, L500.2500 ####[facility] [address] [place], [address] GAP 11 Normal 5-15 [facility] Comment on above: Performed By: #### L 501.9520, L100.0500, L100.4500, L500.2500 ####[facility] [address] [place], [address] GFR/1.73 sq M.predicted among non-blacks MDRD (S/P/Bld) [Vol rate/Area] 94 mL/min/{1.73_m2} Normal >60 [facility] Comment on above: Result Comment: mL/m in/1.73m2 CKD-EPI Creatinine Equation (2020) Performed By: #### L 501.9520, L100.0500, L100.4500, L500.2500 ####[facility] [address] [place], [address] Glucose [Mass/Vol] 113 mg/dL High 70-99 [facility] Comment on above: Performed By: #### L 501.9520, L100.0500, L100.4500, L500.2500 ####[facility] [address] [place], [address] Potassium [Moles/Vol] 4.2 mmol/L Normal 3.3-5.1 [facility] Comment on above: Performed By: #### L 501.9520, L100.0500, L100.4500, L500.2500 ####[facility] [address] [place], [address] Sodium [Moles/Vol] 140 mmol/L Normal 133-145 [facility] Comment on above: Performed By: #### L 501.9520, L100.0500, L100.4500, L500.2500 ####[facility] [address] [place], [address] Urea nitrogen [Mass/Vol] 9 mg/dL Normal 4-19 [facility] Comment on above: Performed By: #### L 501.9520, L100.0500, L100.4500, L500.2500 ####[facility] [address] [place], [address] Blood manual differential co mment interpretation (narrative result)Ordered By: Cachorro Gonzalez on 02-23-2025 Manual differential comment Telly (Bld) [Interp] SCANNED [facility] Comment on above: 2+ ANISOCYTOSIS CBC-Complete Blood Cnt No Di ffon 02-23-2025 Erythrocyte distribution width (RBC) [Ratio] 24.2 % High 11.6-14.6 [facility] Comment on above: Performed By: #### L 501.9520, L100.0500, L100.4500, L500.2500 ####[facility] [address] [place], [address] Hematocrit (Bld) [Volume fraction] 39.4 % Normal 37-47 [facility] Comment on above: Performed By: #### L 501.9520, L100.0500, L100.4500, L500.2500 ####[facility] [address] [place], [address] Hemoglobin (Bld) [Mass/Vol] 12.7 g/dL Normal 12.0-15.0 [facility] Comment on above: Performed By: #### L 501.9520, L100.0500, L100.4500, L500.2500 ####[facility] [address] [place], [address] MCH (RBC) [Entitic mass] 25.0 pg Low 27.0-32.0 [facility] Comment on above: Performed By: #### L 501.9520, L100.0500, L100.4500, L500.2500 ####[facility] [address] [place], [address] MCHC (RBC) [Mass/Vol] 32.2 g/dL Normal 32-36 [facility] Comment on above: Performed By: #### L 501.9520, L100.0500, L100.4500, L500.2500 ####[facility] [address] [place], [address] MCV (RBC) [Entitic vol] 77.7 fL Low 81-99 [facility] Comment on above: Performed By: #### L 501.9520, L100.0500, L100.4500, L500.2500 ####[facility] [address] [place], [address] Platelet mean volume (Bld) [Entitic vol] 10.1 fL Normal 6.2-12.0 [facility] Comment on above: Performed By: #### L 501.9520, L100.0500, L100.4500, L500.2500 ####[facility] [address] [place], [address] Platelets (Bld) [#/Vol] 201 10*3/uL Normal 150-450 [facility] Comment on above: Performed By: #### L 501.9520, L100.0500, L100.4500, L500.2500 ####[facility] [address] [place], [address] RBC (Bld) [#/Vol] 5.07 10*6/uL Normal 4.2-5.4 [facility] Comment on above: Performed By: #### L 501.9520, L100.0500, L100.4500, L500.2500 ####[facility] [address] [place], [address] RDW SD 64.2 fl High 35.1-43.9 [facility] Comment on above: Performed By: #### L 501.9520, L100.0500, L100.4500, L500.2500 ####[facility] [address] [place], [address] WBC (Bld) [#/Vol] 4.7 10*3/uL Normal 4.4-11.0 [facility] Comment on above: Performed By: #### L 501.9520, L100.0500, L100.4500, L500.2500 ####[facility] [address] [place], [address] Carbon dioxide, total [Moles /volume] in Central venous bloodOrdered By: Cachorro Gonzalez on 02-23-2025 CO2 [Moles/Vol] 25.8 mmol/L 21.0-32.0 [facility] Chloride assayOrdered By: Salvador Gonzalez on 02-23-2025 Chloride [Moles/Vol] 103 mmol/L 98-108 [facility] Differential Commenton 02-23 SMEAR COMMENT SCANNED Normal [facility] Comment on above: Result Comment: 2+ A NISOCYTOSIS Performed By: #### L 501.9520, L100.0500, L100.4500, L500.2500 ####[facility] [address] [place], [place], [address] Erythrocyte distribution wid th ratioOrdered By: Cachorro Gonzalez on 02-23-2025 Erythrocyte distribution width (RBC) [Ratio] 24.2 % High 11.6-14.6 [facility] Erythrocyte distribution wid th standard deviationOrdered By: Cachorro Gonzalez on 02-23-2025 Erythrocyte distribution width (RBC) [Ratio] 64.2 fl High 35.1-43.9 [facility] Glomerular filtration rate ( GFR) estimation/1.73 sq m using serum, plasma, or whole bOrdered By: Cachorro Gonzalez on 02-23-2025 GFR/1.73 sq M.predicted among non-blacks MDRD (S/P/Bld) [Vol rate/Area] 94 mL/min/{1.73_m2} >60 [facility] Comment on above: mL/min/1.73m2 CKD-EP I Creatinine Equation (2020) Hematocrit Auto (Bld) [Volum e fraction]Ordered By: Cachorro Gonzalez on 02-23-2025 Hematocrit (Bld) [Volume fraction] 39.4 % 37-47 [facility] Hemoglobin measurementOrdere d By: Cachorro Gonzalez on 02-23-2025 Hemoglobin (Bld) [Mass/Vol] 12.7 g/dL 12.0-15.0 [facility] MCV (mean corpuscular volume ) determinationOrdered By: Cachorro Gonzalez on 02-23-2025 MCV (RBC) [Entitic vol] 77.7 fL Low 81-99 [facility] Mean corpuscular hemoglobin (MCH) determinationOrdered By: Cachorro Gonzalez on 02-23-2025 MCH (RBC) [Entitic mass] 25.0 pg Low 27.0-32.0 [facility] Mean corpuscular hemoglobin concentration (MCHC) determinationOrdered By: Cachorro Gonzalez on 02-23-2025 MCHC (RBC) [Mass/Vol] 32.2 g/dL 32-36 [facility] Mean platelet volume determi nationOrdered By: Cachorro Gonzalez on 02-23-2025 Platelet mean volume (Bld) [Entitic vol] 10.1 fL 6.2-12.0 [facility] Platelet countOrdered By: Salvador Gonzalez on 02-23-2025 Platelets (Bld) [#/Vol] 201 10*3/uL 150-450 [facility] Potassium measurement (mass/ volume)Ordered By: Cachorro Gonzalez on 02-23-2025 Potassium (Unsp spec) [Mass/Vol] 4.2 mmol/L 3.3-5.1 [facility] RBC Auto (Bld) [#/Vol]Ordere d By: Cachorro Gonzalez on 02-23-2025 RBC (Bld) [#/Vol] 5.07 10*6/uL 4.2-5.4 [facility] Serum creatinine measurement (mass/volume)Ordered By: Cachorro Gonzalez on 02-23-2025 Creatinine [Mass/Vol] 0.51 mg/dL Low 0.70-1.20 [facility] Serum glucose measurement (m ass/volume)Ordered By: Cachorro Gonzalez on 02-23-2025 Glucose [Mass/Vol] 113 mg/dL High 70-99 [facility] Serum or plasma calcium arya urement (mass/volume)Ordered By: Cachorro Gonzalez on 02-23-2025 Calcium [Mass/Vol] 9.5 mg/dL 7.6-11.0 [facility] Serum or plasma urea nitroge n measurement (mass/volume)Ordered By: Cachorro Gonzalez on 02-23-2025 Urea nitrogen [Mass/Vol] 9 mg/dL 4-19 [facility] Sodium levelOrdered By: Cachorro Gonzalez on 02-23-2025 Sodium [Moles/Vol] 140 mmol/L 133-145 [facility] TSH DL <= 0.005 mIU/L QnOrde red By: Cachorro Gonzalez on 02-23-2025 TSH Qn 1.930 uIU/mL 0.300-4.20 0 [facility] Thyroid Stim Hormone (TSH)on 02-23-2025 TSH 1.930 uIU/mL Normal 0.300-4.20 0 [facility] Comment on above: Performed By: #### L 501.9520, L100.0500, L100.4500, L500.2500 ####[facility] [address] [place], [address] White blood cell (WBC) count Ordered By: Cachorro Gonzalez on 02-23-2025 WBC (Bld) [#/Vol] 4.7 10*3/uL 4.4-11.0 [facility] Colonoscopy Reporton 025 Colonoscopy Report [facility] Medical Records Department [address] [place] [address] Colonoscopy Report MR#: [id number] Acct: [id number] Name: JULIA PLASCENCIA Rep #: [id number] : 1945 79 From: Von Velez MD PCP: Dr. Cachorro Gonzalez MD Status:[facility] Patient Name: Julia Plascencia Procedure Date: 02/07/2025 8:32 AM Date of : 1945 Age: 79 Procedure: Colonoscopy Indications: Iron deficiency anemia Providers: Von Velez MD Referring MD: Cachorro Gonzalez MD Medicines: Propofol per Anesthesia Patient Profile: [...] screening purposes. Procedure Code(s): --- Professional --- 19435, Colonoscopy, flexible; diagnostic, including collection of specimen(s) by brushing or washing, when performed (separate procedure) Diagnosis Code(s): --- Professional --- D50.9, Iron deficiency anemia, unspecified CPT copyright 2021 [employer]. All rights reserved. The codes documented in this report are preliminary and upon lang interpreter review may be revised to meet current compliance requirements. Von Velez MD 02/07/2025 8:59:20 AM This report has been signed electronically. Number of Addenda: 0 Note Initiated On: 02/07/2025 8:32 AM 02/07/25 0859 Date Von Velez MD Cosign Signature: Date (if indicated) CC: Dr. Von Velez MD; Dr. Cachorro Gonzalez MD Date Dictated: 02/07/25831 Date Transcribed: Hydraulic Miner: ALTAGRACIA Signed Normal [facility] EGD Reporton 02-07-2025 EGD Report [facility] Medical Records Department [address] [place] [address] EGD Report MR#: [id number] Acct: [id number] Name: JULIA PLASCENCIA Rep #: [id number] : 1945 79 From: Von Velez MD PCP: Dr. Cachorro Gonzalez MD Status:[facility] Patient Name: Julia Plascencia Procedure Date: 02/07/2025 8:23 AM Date of : 1945 Age: 79 Procedure: Upper GI endoscopy Indications: Iron deficiency anemia Providers: Von Velez MD Referring MD: Cachorro Gonzalez MD Medicines: Propofol per Anesthesia Patient Profile: [...] present medications. Procedure Code(s): --- Professional --- 17165, Esophagogastroduodenoscopy, flexible, transoral; diagnostic, including collection of specimen(s) by brushing or washing, when performed (separate procedure) Diagnosis Code(s): --- Professional --- D50.9, Iron deficiency anemia, unspecified CPT copyright 2021 [employer]. All rights reserved. The codes documented in this report are preliminary and upon lang interpreter review may be revised to meet current compliance requirements. Von Velez MD 02/07/2025 8:56:06 AM This report has been signed electronically. Number of Addenda: 0 Note Initiated On: 02/07/2025 8:23 AM 02/07/2556 Date Von Velez MD Cosigner Signature: Date (if indicated) CC: Dr. Von Velez MD; Dr. Cachorro Gonzalez MD Date Dictated: 02/07/25822 Date Transcribed: Hydraulic Miner: ALTAGRACIA Signed [facility] MR/POSTOP.Leanna 02-07-2025 MR/POSTOP.[facility] Medical Records Department [address] [place] [address] Anesthesia Postop Eval I 02/07/25 0904 MR#: [id number] Acct: [id number] Name: MARKUSDIONJULIAPROSPER SORIA Rep #: [id number] : 1945 79 From: Mingo Sanchez PCP: Dr. Cachorro Gonzalez MD Status:[facility] Y Race: C Location: EN Anesthesia: Postop [...] 1 completed: Yes 02/07/25 1005 Date Mingo Sanchez Cosigner Signature: Date CC: Signed Normal [facility] MR/VTNZCTYM3gy 02-07-2025 [facility] Medical Records Department [address] [place] [address] Anesthesia Postop Eval II 02/07/25 1011 MR#: [id number] Acct: [id number] Name: JULIA PLASCENCIA Rep #: [id number] : 1945 79 From: Jose Raul Theodore MD PCP: Dr. Cachorro Gonzalez MD Status:[facility] Y Race: C Location: EN Anesthesia Postop [...] MD Cosigner Signature: Date CC: Signed Normal [facility] MR/PAT.SONYon 02-03-2025 MR/PAT.[facility] Medical Records Department [address] [place] [address] PAT - Anesthesia 02/03/25 1151 MR#: [id number] Acct: [id number] Name: JULIA PLASCENCIA Rep #: [id number] : 1945 79 From: Yuri Mistry MD PCP: Dr. 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 History - shift nurse manager Hx Hospitalization No 02/03/25 09:14 Any Problems [...] take am of surgery PONV PONV - shift nurse manager: PONV - shift nurse manager Female Yes 02/03/25 09:14 HX of Motion [...] 01/09/25 13:52 Respiratory Assessment Respiratory Assessment - shift nurse manager: Respiratory Tract Infection Hx - shift nurse manager Hx Respiratory Tract Infection No 02/03/25 09:14 STOP Sleep Apnea STOP Sleep Apnea - shift nurse manager: STOP Sleep Apnea - shift nurse manager Hx Hypertension No: hypotension 02/03/25 09:14 Hx [...] Tobacco Use History Tobacco Use History - shift nurse manager: Tobacco Use History - shift nurse manager Tobacco Use Smoking Status Never smoker 02/03/25 09:14 Hx Tobacco Use No 02/03/25 09:14 Years Smoking Packs Smoked per Day Smoking Cessation Date was within the last 15 years Hx Smoking Cessation Date Hx Smoking Cessation Counseling Hematologic Medial History Hematologic Hx - shift nurse manager: Hematologic 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 Specify any problems Hx of Preganancy in last 3 No 02/03/25 09:14 Months Nurse Filling Out Transfusion [email or web address] 02/03/25 09:14 Questions: Date: 02/03/25 02/03/25 09:14 Time: 09:15 02/03/25 09:14 Patient unable to answer at this time (ie. confused, unrespo /Reproduction History /Reproductive History - shift nurse manager: /Reproductive Hx- shift nurse manager Hx Now No 02/03/25 09:14 Gestational Age (in weeks): EDC: Hx Hx Para Hx Section SAB No 02/03/25 09:14 [facility] Medical History (Updated 02/03/25 @ 09:14 by [...] aspirin 8 (more content not included)... Normal [facility] Surgery Visit Reporton 01-09 Surgery Visit Report [facility] [address] [place] [address]. [address] [place] [address] OFFICE VISIT Date of Service: 01/09/25 MR#: [id number] Acct: [id number] Name: JULIA PLASCENCIA YANG Rep #: [id number] : 1945 Provider: Dr. Von chun MD Age/Sex: 79/F Location: [facility] Status: Signed Intake Vital Signs 01/07/21 08:19 [...] Family History (Updated 01/09/25 @ 13:52 by Gregory Hernandez) Mother Uterine cancer Sister Heart disease [...] Chest C (more content not included)... Normal [facility] Absolute lymphocyte countOrd ered By: Cachorro Gonzalez on 12-28-2024 Lymphocytes Auto (Unsp spec) [#/Vol] 1.06 10*3/uL 0.83-4.51 [facility] Absolute neutrophil countOrd ered By: Cachorro Gonzalez on 12-28-2024 Neutrophils (Bld) [#/Vol] 2.0 10*3/uL 2.0-7.7 [facility] Anion gap in Serum or Plasma Ordered By: Cachorro Gonzalez on 12-28-2024 Anion gap [Moles/Vol] 11 mmol/L 5-15 [facility] Automated lymphocyte count a s percentage of total leukocytesOrdered By: Cachorro Gonzalez on 12-28-2024 Lymphocytes/100 WBC Auto (Unsp spec) 29.9 % 19-41 [facility] BUN/creatinine ratioOrdered By: Cachorro Gonzalez on 12-28-2024 Urea nitrogen/Creatinine [Mass ratio] 13.1 mg/mg 10-20 [facility] Basophil percentageOrdered B y: Cachorro Gonzalez on 12-28-2024 Basophils/100 WBC (Bld) 0.6 % 0-1 [facility] Bilirubin, totalOrdered By: Cachorro Gonzalez on 12-28-2024 Bilirubin [Mass/Vol] 0.31 mg/dL 0.00-1.30 [facility] CBC W/Diff, Automatedon Absolute Lymph 1.06 X10 3/uL Normal 0.83-4.51 [facility] Comment on above: Performed By: #### L 506.0400, L501.9520, L502.0250, L501.20169, L100.0100, L500.4100, L500.4050 ####[facility] [address] [place], [address] Absolute Neut 2.0 X10 3/uL Normal 2.0-7.7 [facility] Comment on above: Performed By: #### L 506.0400, L501.9520, L502.0250, L501.97660, L100.0100, L500.4100, L500.4050 ####[facility] [address] [place], [address] Basophils/100 WBC (Bld) 0.6 % Normal 0-1 [facility] Comment on above: Performed By: #### L 506.0400, L501.9520, L502.0250, L501.13971, L100.0100, L500.4100, L500.4050 ####[facility] [address] [place], [address] Eosinophils/100 WBC (Bld) 4.0 % Normal 0-5 [facility] Comment on above: Performed By: #### L 506.0400, L501.9520, L502.0250, L501.88006, L100.0100, L500.4100, L500.4050 ####[facility] [address] [place], [address] Erythrocyte distribution width (RBC) [Ratio] 18.7 % High 11.6-14.6 [facility] Comment on above: Performed By: #### L 506.0400, L501.9520, L502.0250, L501.42981, L100.0100, L500.4100, L500.4050 ####[facility] [address] [place], [address] Hematocrit (Bld) [Volume fraction] 27.8 % Low 37-47 [facility] Comment on above: Performed By: #### L 506.0400, L501.9520, L502.0250, L501.25627, L100.0100, L500.4100, L500.4050 ####[facility] [address] [place], [address] Hemoglobin (Bld) [Mass/Vol] 8.2 g/dL Low 12.0-15.0 [facility] Comment on above: Performed By: #### L 506.0400, L501.9520, L502.0250, L501.44657, L100.0100, L500.4100, L500.4050 ####[facility] [address] [place], [address] IG% 0.000 Normal 0.0-0.9 [facility] Comment on above: Result Comment: IG% - Immature Granulocytes (promyelocytes, myelocytes and metamyelocytes) > 1% indicates that a LEFT SHIFT is Present. Performed By: #### L 506.0400, L501.9520, L502.0250, L501.09944, L100.0100, L500.4100, L500.4050 ####[facility] [address] [place], [address] Lymphocytes/100 WBC (Bld) 29.9 % Normal 19-41 [facility] Comment on above: Performed By: #### L 506.0400, L501.9520, L502.0250, L501.34487, L100.0100, L500.4100, L500.4050 ####[facility] [address] [place], [address] MCH (RBC) [Entitic mass] 20.2 pg Low 27.0-32.0 [facility] Comment on above: Performed By: #### L 506.0400, L501.9520, L502.0250, L501.41200, L100.0100, L500.4100, L500.4050 ####[facility] [address] [place], [address] MCHC (RBC) [Mass/Vol] 29.5 g/dL Low 32-36 [facility] Comment on above: Performed By: #### L 506.0400, L501.9520, L502.0250, L501.73441, L100.0100, L500.4100, L500.4050 ####[facility] [address] [place], [address] MCV (RBC) [Entitic vol] 68.6 fL Low 81-99 [facility] Comment on above: Performed By: #### L 506.0400, L501.9520, L502.0250, L501.84785, L100.0100, L500.4100, L500.4050 ####[facility] [address] [place], [address] Monocytes/100 WBC (Bld) 9.0 % Normal 0-10 [facility] Comment on above: Performed By: #### L 506.0400, L501.9520, L502.0250, L501.39835, L100.0100, L500.4100, L500.4050 ####[facility] [address] [place], [address] Neutrophils/100 WBC (Bld) 56.5 % Normal 47-70 [facility] Comment on above: Performed By: #### L 506.0400, L501.9520, L502.0250, L501.61990, L100.0100, L500.4100, L500.4050 ####[facility] [address] [place], [address] Nucleated RBC (Bld) [#/Vol] 0 10*3/uL Normal 0-5 [facility] Comment on above: Performed By: #### L 506.0400, L501.9520, L502.0250, L501.11806, L100.0100, L500.4100, L500.4050 ####[facility] [address] [place], [address] Platelet mean volume (Bld) [Entitic vol] 10.0 fL Normal 6.2-12.0 [facility] Comment on above: Performed By: #### L 506.0400, L501.9520, L502.0250, L501.87124, L100.0100, L500.4100, L500.4050 ####[facility] [address] [place], [address] Platelets (Bld) [#/Vol] 241 10*3/uL Normal 150-450 [facility] Comment on above: Performed By: #### L 506.0400, L501.9520, L502.0250, L501.75496, L100.0100, L500.4100, L500.4050 ####[facility] [address] [place], [address] RBC (Bld) [#/Vol] 4.05 10*6/uL Low 4.2-5.4 [facility] Comment on above: Performed By: #### L 506.0400, L501.9520, L502.0250, L501.23254, L100.0100, L500.4100, L500.4050 ####[facility] [address] [place], [address] RDW SD 46.2 fl High 35.1-43.9 [facility] Comment on above: Performed By: #### L 506.0400, L501.9520, L502.0250, L501.72798, L100.0100, L500.4100, L500.4050 ####[facility] [address] [place], [address] WBC (Bld) [#/Vol] 3.5 10*3/uL Low 4.4-11.0 [facility] Comment on above: Performed By: #### L 506.0400, L501.9520, L502.0250, L501.44417, L100.0100, L500.4100, L500.4050 ####[facility] [address] [place], [address] Calculated very low density lipoprotein (VLDL) cholesterol measurementOrdered By: Cachorro Gonzalez on 12-28-2024 Calculated very low density lipoprotein (VLDL) cholesterol measurement 20 mg/dL 5-40 [facility] Carbon dioxide, total [Moles /volume] in Central venous bloodOrdered By: Cachorro Gonzalez on 12-28-2024 CO2 [Moles/Vol] 23.5 mmol/L 21.0-32.0 [facility] Chloride assayOrdered By: Salvador Gonzalez on 12-28-2024 Chloride [Moles/Vol] 107 mmol/L 98-108 [facility] Comprehensive Metabolic Prof ilon 12-28-2024 Albumin [Mass/Vol] 4.2 g/dL Normal 3.4-4.8 [facility] Comment on above: Performed By: #### L 504.2610, L501.1400, L100.0100, L500.4050 #### [facility] [address] [place], [address] Albumin/Globulin [Mass ratio] 1.7 {ratio} Normal 0.9-2.4 [facility] Comment on above: Performed By: #### L 504.2610, L501.1400, L100.0100, L500.4050 #### [facility] [address] [place], [address] ALK PHOS 63 U/L Normal 35-104 [facility] Comment on above: Performed By: #### L 504.2610, L501.1400, L100.0100, L500.4050 #### [facility] [address] [place], [address] ALT [Catalytic activity/Vol] 16 U/L Normal <=34 [facility] Comment on above: Performed By: #### L 504.2610, L501.1400, L100.0100, L500.4050 #### [facility] [address] [place], [address] AST [Catalytic activity/Vol] 18 U/L Normal <=31 [facility] Comment on above: Performed By: #### L 504.2610, L501.1400, L100.0100, L500.4050 #### [facility] [address] [place], [address] Bilirubin [Mass/Vol] 0.31 mg/dL Normal 0.00-1.30 [facility] Comment on above: Performed By: #### L 504.2610, L501.1400, L100.0100, L500.4050 #### [facility] [address] [place], [address] BUN/CRE 13.1 RATIO Normal 10-20 [facility] Comment on above: Performed By: #### L 504.2610, L501.1400, L100.0100, L500.4050 #### [facility] [address] [place], [address] Calcium [Mass/Vol] 9.2 mg/dL Normal 7.6-11.0 [facility] Comment on above: Performed By: #### L 504.2610, L501.1400, L100.0100, L500.4050 #### [facility] [address] [place], [address] Chloride [Moles/Vol] 107 mmol/L Normal 98-108 [facility] Comment on above: Performed By: #### L 504.2610, L501.1400, L100.0100, L500.4050 #### [facility] [address] [place], [address] CO2 [Moles/Vol] 23.5 mmol/L Normal 21.0-32.0 [facility] Comment on above: Performed By: #### L 504.2610, L501.1400, L100.0100, L500.4050 #### [facility] [address] [place], [address] Creatinine [Mass/Vol] 0.57 mg/dL Low 0.70-1.20 [facility] Comment on above: Performed By: #### L 504.2610, L501.1400, L100.0100, L500.4050 #### [facility] [address] [place], [address] GAP 11 Normal 5-15 [facility] Comment on above: Performed By: #### L 504.2610, L501.1400, L100.0100, L500.4050 #### [facility] [address] [place], [address] GFR/1.73 sq M.predicted among non-blacks MDRD (S/P/Bld) [Vol rate/Area] 92 mL/min/{1.73_m2} Normal >60 [facility] Comment on above: Result Comment: mL/m in/1.73m2 CKD-EPI Creatinine Equation (2020) Performed By: #### L 504.2610, L501.1400, L100.0100, L500.4050 #### [facility] [address] [place], [address] Globulin (S) [Mass/Vol] 2.5 g/dL Normal 2.2-4.2 [facility] Comment on above: Performed By: #### L 504.2610, L501.1400, L100.0100, L500.4050 #### [facility] [address] [place], [address] Glucose [Mass/Vol] 103 mg/dL High 70-99 [facility] Comment on above: Performed By: #### L 504.2610, L501.1400, L100.0100, L500.4050 #### [facility] [address] [place], [address] Potassium [Moles/Vol] 3.8 mmol/L Normal 3.3-5.1 [facility] Comment on above: Performed By: #### L 504.2610, L501.1400, L100.0100, L500.4050 #### [facility] [address] [place], [address] Sodium [Moles/Vol] 141 mmol/L Normal 133-145 [facility] Comment on above: Performed By: #### L 504.2610, L501.1400, L100.0100, L500.4050 #### [facility] [address] [place], [address] T PROT 6.7 g/dL Normal 5.9-8.4 [facility] Comment on above: Performed By: #### L 504.2610, L501.1400, L100.0100, L500.4050 #### [facility] [address] [place], [address] Urea nitrogen [Mass/Vol] 7 mg/dL Normal 4-19 [facility] Comment on above: Performed By: #### L 504.2610, L501.1400, L100.0100, L500.4050 #### [facility] [address] [place], [address] Eosinophil percentageOrdered By: Cachorro Gonzalez on 12-28-2024 Eosinophils/100 WBC (Bld) 4.0 % 0-5 [facility] Erythrocyte distribution wid th ratioOrdered By: Cachorro Gonzalez on 12-28-2024 Erythrocyte distribution width (RBC) [Ratio] 18.7 % High 11.6-14.6 [facility] Erythrocyte distribution wid th standard deviationOrdered By: Cachorro Gonzalez on 12-28-2024 Erythrocyte distribution width (RBC) [Ratio] 46.2 fl High 35.1-43.9 [facility] Free T3on 12-28-2024 Free T3 [Mass/Vol] 2.6 pg/mL Normal 2.18-3.98 [facility] Comment on above: Performed By: #### L 504.2610, L501.1400, L100.0100, L500.4050 #### [facility] [address] [place], [address] Free [id number] By: Cachorro kim on 12-28-2024 Free T3 [Mass/Vol] 2.6 pg/mL 2.18-3.98 [facility] Glomerular filtration rate ( GFR) estimation/1.73 sq m using serum, plasma, or whole bOrdered By: Cachorro Gonzalez on 12-28-2024 GFR/1.73 sq M.predicted among non-blacks MDRD (S/P/Bld) [Vol rate/Area] 92 mL/min/{1.73_m2} >60 [facility] Comment on above: mL/min/1.73m2 CKD-EP I Creatinine Equation (2020) Hematocrit Auto (Bld) [Volum e fraction]Ordered By: Cachorro Gonzalez on 12-28-2024 Hematocrit (Bld) [Volume fraction] 27.8 % Low 37-47 [facility] Hemoglobin measurementOrdere d By: Cachorro Gonzalez on 12-28-2024 Hemoglobin (Bld) [Mass/Vol] 8.2 g/dL Low 12.0-15.0 [facility] Immature granulocytes/100 WB C Auto (Bld)Ordered By: Cachorro Gonzalez on 12-28-2024 Immature granulocytes/100 WBC (Bld) 0.000 % 0.0-0.9 [facility] Comment on above: IG% - Immature Granu locytes (promyelocytes, myelocytes and metamyelocytes) > 1% indicates that a LEFT SHIFT is Present. LDL calc ser/plasOrdered By: Cachorro Gonzalez on 12-28-2024 Cholesterol in LDL [Mass/Vol] 167 mg/dL [facility] Comment on above: Iswfmnkhlf=366-106 m g/dL & Higher Iues=844 mg/dL or greater Laboratory - Chemistry and C hemistry - challengeOrdered By: Cachorro Gonzalez on 12-28-2024 AST [Catalytic activity/Vol] 18 U/L <32 [facility] Lipid Profileon 12-28-2024 CHOL:HDL 3.59 Normal [facility] Comment on above: Performed By: #### L 504.2610, L501.1400, L100.0100, L500.4050 #### [facility] [address] [place], [address] Cholesterol [Mass/Vol] 259 mg/dL High <=200 [facility] Comment on above: Result Comment: Chol esterol level, Desirable <200 mg/dL Borderline high cholesterol 200-239 mg/dL High cholesterol >=240 mg/dL Recommendations of the NCEP Adult Treatment Panel for the following risk-cutoff thresholds for the [place] population. Performed By: #### L 504.2610, L501.1400, L100.0100, L500.4050 #### [facility] [address] [place], [address] Cholesterol in HDL [Mass/Vol] 72 mg/dL Normal [facility] Comment on above: Result Comment: Cassie onal Cholesterol Education Program (NCEP) guidelines: <40 mg/dL: Low HDL-cholesterol (major risk factor for CHD) >= 60 mg/dL: High HDL-cholesterol (negative risk factor for CHD) HDL-cholesterol is affected by a number of factors, e.g. smoking, exercise, hormones, sex and age. Performed By: #### L 504.2610, L501.1400, L100.0100, L500.4050 #### [facility] [address] [place], [address] Cholesterol in LDL [Mass/Vol] 167 mg/dL Normal [facility] Comment on above: Result Comment: Bord imewxo=020-355 mg/dL Higher Ckww=006 mg/dL or greater Performed By: #### L 504.2610, L501.1400, L100.0100, L500.4050 #### [facility] [address] [place], [address] Cholesterol in VLDL [Mass/Vol] 20 mg/dL Normal 5-40 [facility] Comment on above: Performed By: #### L 504.2610, L501.1400, L100.0100, L500.4050 #### [facility] [address] [facility] [address] [place], [place], [id number] Triglyceride [Mass/Vol] 98 mg/dL Normal [facility] Comment on above: Result Comment: The drugs N-Acetylcysteine and Metamizole may falsely depress this assay. Normal range: <150 mg/dL Borderline High: 150-199 mg/dL High: 200-499 mg/dL Very High: >500 mg/dL Performed By: #### L 504.2610, L501.1400, L100.0100, L500.4050 #### [facility] [address] [facility] [address] [place], [place], [id number] MCV (mean corpuscular volume ) determinationOrdered By: Cachorro Gonzalez on 12-28-2024 MCV (RBC) [Entitic vol] 68.6 fL Low 81-99 [facility] Mean corpuscular hemoglobin (MCH) determinationOrdered By: Cachorro Gonzalez on 12-28-2024 MCH (RBC) [Entitic mass] 20.2 pg Low 27.0-32.0 [facility] Mean corpuscular hemoglobin concentration (MCHC) determinationOrdered By: Cachorro Gonzalez on 12-28-2024 MCHC (RBC) [Mass/Vol] 29.5 g/dL Low 32-36 [facility] Mean platelet volume determi nationOrdered By: Cachorro Gonzalez on 12-28-2024 Platelet mean volume (Bld) [Entitic vol] 10.0 fL 6.2-12.0 [facility] Microalb:Creat Ratio,Random URon 12-28-2024 Creatinine [Mass/Vol] 32.20 mg/dL Normal 28.00- 217. 00 [facility] Comment on above: Performed By: #### L 506.0400, L501.9520, L502.0250, L501.45288, L100.0100, L500.4100, L500.4050 ####[facility] [address] [place], [place], [id number] MALB:CREAT UNABLE TO CALCULATE Normal [facility] Comment on above: Performed By: #### L 506.0400, L501.9520, L502.0250, L501.63030, L100.0100, L500.4100, L500.4050 ####[facility] [address] [place], [place], [address] MICROALBUMIN,UR < 12.0 Normal NO RANGE EST. [facility] Comment on above: Performed By: #### L 506.0400, L501.9520, L502.0250, L501.78893, L100.0100, L500.4100, L500.4050 ####[facility] [address] [place], [place], [id number] Microalbumin/creat ratio urO rdered By: Cachorro Gonzalez on 12-28-2024 Urine microalbumin/creatinin e ratio measurement UNABLE TO CALCULATE mg/g CRE [facility] Monocyte percentageOrdered B y: Cachorro oGnzalez on 12-28-2024 Monocytes/100 WBC (Bld) 9.0 % 0-10 [facility] Neutrophil percentageOrdered By: Cachorro Gonzalez on 12-28-2024 Neutrophils/100 WBC (Bld) 56.5 % 47-70 [facility] Nucleated red blood cell per centageOrdered By: Cachorro Gonzalez on 12-28-2024 Nucleated RBC/100 WBC (Bld) [Ratio] 0 % 0-5 [facility] Platelet countOrdered By: Salvador Gonzalez on 12-28-2024 Platelets (Bld) [#/Vol] 241 10*3/uL 150-450 [facility] Potassium measurement (mass/ volume)Ordered By: Cachorro Gonzalez on 12-28-2024 Potassium (Unsp spec) [Mass/Vol] 3.8 mmol/L 3.3-5.1 [facility] RBC Auto (Bld) [#/Vol]Ordere d By: Cachorro Gonzalez on 12-28-2024 RBC (Bld) [#/Vol] 4.05 10*6/uL Low 4.2-5.4 [facility] Random urine creatinine arya urement (mass/volume)Ordered By: Cachorro Gonzalez on 12-28-2024 Creatinine Unsp time (U) [Mass/Vol] 32.20 mg/dL 28.00-217. 00 [facility] Screening total cholesterol/ high density lipoprotein (HDL) cholesterol ratioOrdered By: Cachorro Gonzalez on 12-28-2024 Cholesterol.total/Chol esterol in HDL [Mass ratio] 3.59 {ratio} [facility] Serum creatinine measurement (mass/volume)Ordered By: Cachorro Gonzalez on 12-28-2024 Creatinine [Mass/Vol] 0.57 mg/dL Low 0.70-1.20 [facility] Serum globulin measurementOr dered By: Cachorro Gonzalez on 12-28-2024 Globulin (S) [Mass/Vol] 2.5 g/dL 2.2-4.2 [facility] Serum glucose measurement (m ass/volume)Ordered By: Cachorro Gonzalez on 12-28-2024 Glucose [Mass/Vol] 103 mg/dL High 70-99 [facility] Serum or plasma alanine morejon otransferase (ALT) measurementOrdered By: Cachorro Gonzalez on 12-28-2024 ALT [Catalytic activity/Vol] 16 U/L <35 [facility] Serum or plasma albumin arya urement (mass/volume)Ordered By: Cachorro Gonzalez on 12-28-2024 Albumin [Mass/Vol] 4.2 g/dL 3.4-4.8 [facility] Serum or plasma albumin/glob ulin mass ratioOrdered By: Cachorro Gonzalez on 12-28-2024 Albumin/Globulin [Mass ratio] 1.7 {ratio} 0.9-2.4 [facility] Serum or plasma alkaline altagracia sphatase measurementOrdered By: Cachorro Gonzalez on 12-28-2024 ALP [Catalytic activity/Vol] 63 U/L 35-104 [facility] Serum or plasma calcium arya urement (mass/volume)Ordered By: Cachorro Gonzalez on 12-28-2024 Calcium [Mass/Vol] 9.2 mg/dL 7.6-11.0 [facility] Serum or plasma cholesterol in HDL measurement (mass/volume)Ordered By: Cachorro Gonzalez on 12-28-2024 Cholesterol in HDL [Mass/Vol] 72 mg/dL >40 [facility] Comment on above: National Cholesterol Education Program (NCEP) guidelines:<40 mg/dL: Low HDL-cholesterol (major risk factor for CHD)>= 60 mg/dL: High HDL-cholesterol (negative risk factor for CHD)HDL-cholesterol is affected by a number of factors, e.g. smoking, exercise, hormones, sex and age. Serum or plasma cholesterol measurement (mass/volume)Ordered By: Cachorro Gonzalez on 12-28-2024 Cholesterol [Mass/Vol] 259 mg/dL High <201 [facility] Comment on above: Cholesterol level, D esirable <200 mg/dLBorderline high cholesterol 200-239 mg/dLHigh cholesterol >=240 mg/dLRecommendations of the NCEP Adult Treatment Panel for the following risk-cutoff thresholds for the [place] population. Serum or plasma urea nitroge n measurement (mass/volume)Ordered By: Cachorro Gonzalez on 12-28-2024 Urea nitrogen [Mass/Vol] 7 mg/dL 4-19 [facility] Sodium levelOrdered By: Cachorro Gonzalez on 12-28-2024 Sodium [Moles/Vol] 141 mmol/L 133-145 [facility] T4 Free Directon 12-28-2024 T4 FREE DIRECT 1.30 ng/dL Normal 0.76-1.46 [facility] Comment on above: Performed By: #### L 504.2610, L501.1400, L100.0100, L500.4050 #### [facility] [address] [place], [place], [id number] T4 freeOrdered By: Cachorro kim on 12-28-2024 Free T4 [Mass/Vol] 1.30 ng/dL 0.76-1.46 [facility] TSH DL <= 0.005 mIU/L QnOrde red By: Cachorro Gonzalez on 12-28-2024 TSH Qn 1.220 uIU/mL 0.300-4.20 0 [facility] Thyroid Stim Hormone (TSH)on 12-28-2024 TSH 1.220 uIU/mL Normal 0.300-4.20 0 [facility] Comment on above: Performed By: #### L 504.2610, L501.1400, L100.0100, L500.4050 #### [facility] [address] [place], [address] Total proteinOrdered By: Erinn Gonzalez on 12-28-2024 Protein [Mass/Vol] 6.7 g/dL 5.9-8.4 [facility] Triglycerides measurementOrd ered By: Cachorro Gonzalez on 12-28-2024 Triglyceride [Mass/Vol] 98 mg/dL <199 [facility] Comment on above: The drugs N-Acetylcy steine and Metamizole may falsely depress this assay. Normal range: <150 mg/dLBorderline High: 150-199 mg/dLHigh: 200-499 mg/dLVery High: >500 mg/dL Urine albumin measurement wi th detection limit of 20 mg/L or less (mass/volume)Ordered By: Cachorro Gonzalez on 12-28-2024 Albumin DL <= 20 mg/L (U) [Mass/Vol] < 12.0 mg/L NO RANGE EST. [facility] White blood cell (WBC) count Ordered By: Cachorro Gonzalez on 12-28-2024 WBC (Bld) [#/Vol] 3.5 10*3/uL Low 4.4-11.0 [facility] Urine Cultureon 09-08-2024 URC Klebsiella pneumonia e sp pneum [place] Count 80,000-100,000 Klebsiella pneumoniae sp pneum: REACTION [...] TMP SMX Islt SHAY <=20 S Normal [facility] Comment on above: Performed By: #### L 504.2610, L501.1400, L100.0100, L500.4050 #### [facility] [address] [place], [address] Urine cultureOrdered By: Brittni Calderon on 09-06-2024 Bacteria identified Cx Nom (U) Klebsiella pneumoniae sp pneum Abnormal [facility] Absolute lymphocyte countOrd ered By: Cachorro Gonzalez on 12-28-2023 Lymphocytes Auto (Unsp spec) [#/Vol] 1.15 10*3/uL 0.83-4.51 [facility] Automated lymphocyte count a s percentage of total leukocytesOrdered By: Cachorro Gonzalez on 12-28-2023 Lymphocytes/100 WBC Auto (Unsp spec) 27.7 % 19-41 [facility] Basophil percentageOrdered B y: Cachorro Gonzalez on 12-28-2023 Basophils/100 WBC (Bld) 0.7 % 0-1 [facility] Bilirubin [Mass/Vol] 0.40 mg/dL 0.20-1.00 [facility] Comment on above: For patients on eltr ombopag therapy, use of Dimension [place] TBIL is not recommended. Chloride [Moles/Vol] 107 mmol/L 98-107 [facility] Cholesterol [Mass/Vol] 319 mg/dL <200 [facility] Comment on above: <200 mg/dL Desirable 200-240 mg/dL Borderline >240 mg/dL High Risk Eosinophils/100 WBC (Bld) 7.0 % 0-5 [facility] Glucose [Mass/Vol] 143 mg/dL 74-106 [facility] Comment on above: Fasting Glucose resu lt greater than or equal to 126 mg/dL suggests DIABETES MELLITUS per A.D.A. criteria. Hemoglobin (Bld) [Mass/Vol] 10.1 g/dL 12.0-15.0 [facility] Monocytes/100 WBC (Bld) 8.7 % 0-10 [facility] Neutrophils (Bld) [#/Vol] 2.3 10*3/uL 2.0-7.7 [facility] Neutrophils/100 WBC (Bld) 55.7 % 47-70 [facility] Potassium [Moles/Vol] 3.8 mmol/L 3.5-5.1 [facility] Protein [Mass/Vol] 7.2 g/dL 6.4-8.2 [facility] Sodium [Moles/Vol] 140 mmol/L 136-145 [facility] Triglyceride [Mass/Vol] 116 mg/dL <199 [facility] Comment on above: The drugs N-Acetylcy steine and Metamizole may falsely depress this assay.Serum Triglycerides Reference Interval Normal <150 mg/dL Borderline high 150 - 199 mg/dL High 200 - 499 mg/dL Very High > or = 500 mg/dL WBC (Bld) [#/Vol] 4.2 10*3/uL 4.4-11.0 [facility] Determination of erythrocyte mean corpuscular volume (MCV)Ordered By: Cachorro Gonzalez on 12-28-2023 MCV (RBC) [Entitic vol] 72.9 fL 81-99 [facility] Erythrocyte distribution wid th ratioOrdered By: Cachorro Gonzalez on 12-28-2023 Erythrocyte distribution width (RBC) [Ratio] 19.0 % 11.6-14.6 [facility] Erythrocyte distribution wid th standard deviationOrdered By: Cachorro Gonzalez on 12-28-2023 Erythrocyte distribution width (RBC) [Entitic vol] 49.3 fL 35.1-43.9 [facility] Hematocrit Auto (Bld) [Volum e fraction]Ordered By: Cachorro Gonzalez on 12-28-2023 Hematocrit (Bld) [Volume fraction] 34.1 % 37-47 [facility] Immature granulocytes/100 WB C Auto (Bld)Ordered By: Cachorro Gonzalez on 12-28-2023 Immature granulocytes/100 WBC (Bld) 0.200 % 0.0-0.9 [facility] Comment on above: IG% - Immature Granu locytes (promyelocytes, myelocytes and metamyelocytes) > 1% indicates that a LEFT SHIFT is Present. Laboratory - Chemistry and C hemistry - challengeOrdered By: Cachorro Gonzalez on 12-28-2023 Albumin/Globulin [Mass ratio] 1.2 {ratio} 0.9-2.4 [facility] ALP [Catalytic activity/Vol] 57 U/L 45-117 [facility] ALT [Catalytic activity/Vol] 20 U/L 13-56 [facility] Cholesterol in HDL [Mass/Vol] 84 mg/dL >40 [facility] Comment on above: The drugs N-Acetylcy steine and Metamizole may falsely depress this assay. Reference Range HDL <40 mg/dL Low HDL Cholesterol HDL >or= 60 mg/dL High HDL Cholesterol Cholesterol in LDL [Mass/Vol] 212 mg/dL 0-130 [facility] CO2 [Moles/Vol] 27.0 mmol/L 21.0-32.0 [facility] Globulin (S) [Mass/Vol] 3.3 g/dL 2.2-4.2 [facility] Urea nitrogen/Creatinine [Mass ratio] 11.5 mg/mg 10-20 [facility] - Hematology and Cell countsOrdered By: Cachorro Gonzalez on 12-28-2023 MCH (RBC) [Entitic mass] 21.6 pg 27.0-32.0 [facility] MCHC (RBC) [Mass/Vol] 29.6 g/dL 32-36 [facility] Nucleated RBC/100 WBC (Bld) [Ratio] 0 % 0-5 [facility] Platelet mean volume (Bld) [Entitic vol] 10.1 fL 6.2-12.0 [facility] Platelets (Bld) [#/Vol] 264 10*3/uL 150-450 [facility] No Panel InformationOrdered By: Cachorro Gonzalez on 12-28-2023 Estimated GFR (MDRD) Amer 122 mL/min >60 [facility] Comment on above: GFR Calc Estimated GFR (MDRD) Non-Af Amer 101 mL/min >60 [facility] Comment on above: Non- GFR Calc Free Triiodothyronine (T3) pg/dL 2.6 pg/mL 2.18-3.98 [facility] VLDL Cholesterol 23 mg/dL 5-40 [facility] RBC Auto (Bld) [#/Vol]Ordere d By: Cachorro Gonzalez on 12-28-2023 RBC (Bld) [#/Vol] 4.68 10*6/uL 4.2-5.4 [facility] Serum or plasma calcium arya urement (mass/volume)Ordered By: Cachorro Gonzalez on 12-28-2023 Calcium [Mass/Vol] 9.1 mg/dL 8.5-10.1 [facility] Serum or plasma creatinine m easurement (mass/volume)Ordered By: Cachorro Gonzalez on 12-28-2023 Creatinine [Mass/Vol] 0.61 mg/dL 0.55-1.02 [facility] Comment on above: The validity of the calculated GFR & GFRAA in patients over 70 years has not been determined. Clinical correlation is essential. Serum or plasma thyroid stim ulating hormone (TSH) measurement (units/volume)Ordered By: Cachorro Gonzalez on 12-28-2023 TSH Qn 2.33 uIU/mL 0.358-3.74 [facility] Serum or plasma urea nitroge n measurement (mass/volume)Ordered By: Cachorro Gonzalez on 12-28-2023 Urea nitrogen [Mass/Vol] 7 mg/dL 7-18 [facility] Thin prep Papanicolaou smear with manual screeningOrdered By: Cachorro Gonzalez on 12-28-2023 Thin prep Papanicolaou smear with manual screening 3.9 g/dL 3.2-5.0 [facility] Thin prep Papanicolaou smear with manual screening 16 U/L 15-37 [facility] Thin prep Papanicolaou smear with manual screening 6 5-15 [facility] Thin prep Papanicolaou smear with manual screening 1.20 ng/dL 0.76-1.46 [facility] Basophil percentageOrdered B y: Cachorro Gonzalez on 06-26-2023 Chloride [Moles/Vol] 105 mmol/L 98-107 [facility] Cholesterol [Mass/Vol] 211 mg/dL <200 [facility] Comment on above: <200 mg/dL Desirable 200-240 mg/dL Borderline >240 mg/dL High Risk Glucose [Mass/Vol] 144 mg/dL 74-106 [facility] Comment on above: Fasting Glucose resu lt greater than or equal to 126 mg/dL suggests DIABETES MELLITUS per A.D.A. criteria. Potassium [Moles/Vol] 3.9 mmol/L 3.5-5.1 [facility] Sodium [Moles/Vol] 138 mmol/L 136-145 [facility] Triglyceride [Mass/Vol] 86 mg/dL <199 [facility] Comment on above: The drugs N-Acetylcy steine and Metamizole may falsely depress this assay.Serum Triglycerides Reference Interval Normal <150 mg/dL Borderline high 150 - 199 mg/dL High 200 - 499 mg/dL Very High > or = 500 mg/dL Laboratory - Chemistry and C hemistry - challengeOrdered By: Cachorro Gonzalez on 06-26-2023 CO2 [Moles/Vol] 27.0 mmol/L 21.0-32.0 [facility] Free T4 [Mass/Vol] 1.17 ng/dL 0.76-1.46 [facility] Urea nitrogen/Creatinine [Mass ratio] 19.1 mg/mg 10-20 [facility] No Panel InformationOrdered By: Cachorro Gonzalez on 06-26-2023 Estimated GFR (MDRD) Amer 107 mL/min >60 [facility] Comment on above: GFR Calc Estimated GFR (MDRD) Non-Af Amer 89 mL/min >60 [facility] Comment on above: Non- GFR Calc Free Triiodothyronine (T3) pg/dL 2.5 pg/mL 2.18-3.98 [facility] Thyroid Stimulating Hormone (TSH) 1.74 uIU/mL 0.358-3.74 [facility] Serum or plasma calcium arya urement (mass/volume)Ordered By: Cachorro Gonzalez on 06-26-2023 Calcium [Mass/Vol] 9.2 mg/dL 8.5-10.1 [facility] Serum or plasma cholesterol in HDL measurement (mass/volume)Ordered By: Cachorro Gonzalez on 06-26-2023 Cholesterol in HDL [Mass/Vol] 72 mg/dL >40 [facility] Comment on above: The drugs N-Acetylcy steine and Metamizole may falsely depress this assay. Reference Range HDL <40 mg/dL Low HDL Cholesterol HDL >or= 60 mg/dL High HDL Cholesterol Serum or plasma cholesterol in VLDL measurement (mass/volume)Ordered By: Cachorro Gonzalez on 06-26-2023 Cholesterol in VLDL [Mass/Vol] 17 mg/dL 5-40 [facility] Serum or plasma creatinine m easurement (mass/volume)Ordered By: Cachorro Gonzalez on 06-26-2023 Creatinine [Mass/Vol] 0.68 mg/dL 0.55-1.02 [facility] Comment on above: The validity of the calculated GFR & GFRAA in patients over 70 years has not been determined. Clinical correlation is essential. Serum or plasma low density lipoprotein (LDL) cholesterol measurement (mass/volume)Ordered By: Cachorro Gonzalez on 06-26-2023 Cholesterol in LDL [Mass/Vol] 122 mg/dL 0-130 [facility] Serum or plasma urea nitroge n measurement (mass/volume)Ordered By: Cachorro Gonzalez on 06-26-2023 Urea nitrogen [Mass/Vol] 13 mg/dL 7-18 [facility] Thin prep Papanicolaou smear with manual screeningOrdered By: Cachorro Gonzalez on 06-26-2023 Thin prep Papanicolaou smear with manual screening 6 5-15 [facility] Basophil percentageon 2021 Chloride [Moles/Vol] 106 mmol/L 98-107 [facility] Work Phone: Cholesterol [Mass/Vol] 219 mg/dL <200 [facility] Work Phone: Comment on above: <200 mg/dL Desirable 200-240 mg/dL Borderline >240 mg/dL High Risk Glucose [Mass/Vol] 116 mg/dL 74-106 [facility] Work Phone: Comment on above: Fasting Glucose resu lt from 100 to 125 mg/dL suggests IMPAIRED HOMEOSTASIS per A.D.A. criteria. Potassium [Moles/Vol] 3.9 mmol/L 3.5-5.1 [facility] Work Phone: Sodium [Moles/Vol] 139 mmol/L 136-145 [facility] Work Phone: Triglyceride [Mass/Vol] 98 mg/dL <199 [facility] Work Phone: Comment on above: The drugs N-Acetylcy steine and Metamizole may falsely depress this assay.Serum Triglycerides Reference Interval Normal <150 mg/dL Borderline high 150 - 199 mg/dL High 200 - 499 mg/dL Very High > or = 500 mg/dL Laboratory - Chemistry and C hemistry - challengeon 06-25-2022 CO2 [Moles/Vol] 28.0 mmol/L 21.0-32.0 [facility] Work Phone: Free T4 [Mass/Vol] 1.04 ng/dL 0.76-1.46 [facility] Work Phone: Urea nitrogen/Creatinine [Mass ratio] 18.8 mg/mg 10-20 [facility] Work Phone: No Panel Informationon 06-25 Estimated GFR (MDRD) Amer 116 mL/min >60 [facility] Work Phone: Comment on above: GFR Calc Estimated GFR (MDRD) Non-Af Amer 96 mL/min >60 [facility] Work Phone: Comment on above: Non- GFR Calc Free Triiodothyronine (T3) pg/dL 2.5 pg/mL 2.18-3.98 [facility] Work Phone: Thyroid Stimulating Hormone (TSH) 1.75 uIU/mL 0.358-3.74 [facility] Work Phone: Urine Microalbumin/Creatinin e Ratio 26.3 mg/g CRE <30 [facility] Work Phone: Serum or plasma calcium arya urement (mass/volume)on 06-25-2022 Calcium [Mass/Vol] 8.8 mg/dL 8.5-10.1 [facility] Work Phone: Serum or plasma cholesterol in HDL measurement (mass/volume)on 06-25-2022 Cholesterol in HDL [Mass/Vol] 78 mg/dL >40 [facility] Work Phone: Comment on above: The drugs N-Acetylcy steine and Metamizole may falsely depress this assay. Reference Range HDL <40 mg/dL Low HDL Cholesterol HDL >or= 60 mg/dL High HDL Cholesterol Serum or plasma cholesterol in VLDL measurement (mass/volume)on 06-25-2022 Cholesterol in VLDL [Mass/Vol] 20 mg/dL 5-40 [facility] Work Phone: Serum or plasma creatinine m easurement (mass/volume)on 06-25-2022 Creatinine [Mass/Vol] 0.64 mg/dL 0.55-1.02 [facility] Work Phone: Comment on above: The validity of the calculated GFR & GFRAA in patients over 70 years has not been determined. Clinical correlation is essential. Serum or plasma low density lipoprotein (LDL) cholesterol measurement (mass/volume)on 06-25-2022 Cholesterol in LDL [Mass/Vol] 121 mg/dL 0-130 [facility] Work Phone: Serum or plasma urea nitroge n measurement (mass/volume)on 06-25-2022 Urea nitrogen [Mass/Vol] 12 mg/dL 7-18 [facility] Work Phone: Thin prep Papanicolaou smear with manual screeningon 06-25-2022 Thin prep Papanicolaou smear with manual screening 5 5-15 [facility] Work Phone: Thin prep Papanicolaou smear with manual screening 8.5 mg/L NO RANGE EST. [facility] Work Phone: Urine creatinine measurement (mass/volume)on 06-25-2022 Creatinine (U) [Mass/Vol] 32.40 mg/dL NO RANGE EST. [facility] Work Phone: Basophil percentageon 2021 Basophil percentage >100 SEEN /hpf W [facility] Work Phone: Chloride [Moles/Vol] 107 mmol/L 98-107 [facility] Work Phone: Cholesterol [Mass/Vol] 210 mg/dL <200 [facility] Work Phone: Comment on above: <200 mg/dL Desirable 200-240 mg/dL Borderline >240 mg/dL High Risk Glucose [Mass/Vol] 151 mg/dL 74-106 [facility] Work Phone: Comment on above: Fasting Glucose resu lt greater than or equal to 126 mg/dL suggests DIABETES MELLITUS per A.D.A. criteria. Potassium [Moles/Vol] 4.0 mmol/L 3.5-5.1 [facility] Work Phone: Sodium [Moles/Vol] 140 mmol/L 136-145 [facility] Work Phone: Triglyceride [Mass/Vol] 134 mg/dL [facility] Work Phone: Comment on above: The drugs N-Acetylcy steine and Metamizole may falsely depress this assay.Serum Triglycerides Reference Interval Normal <150 mg/dL Borderline high 150 - 199 mg/dL High 200 - 499 mg/dL Very High > or = 500 mg/dL Bilirubin Test strip Ql (U)o n 12-23-2021 Bilirubin Ql (U) Negative Negative [facility] Work Phone: Ketones Test strip Ql (U)on 12-23-2021 Ketones Ql (U) Negative Negative [facility] Work Phone: Laboratory - Chemistry and C hemistry - challengeon 12-23-2021 CO2 [Moles/Vol] 27.0 mmol/L 21.0-32.0 [facility] Work Phone: Free T4 [Mass/Vol] 1.10 ng/dL 0.76-1.46 [facility] Work Phone: Urea nitrogen/Creatinine [Mass ratio] 14.8 mg/mg 10-20 [facility] Work Phone: Mucus LM Ql (Urine sed)on Mucus Ql (Urine sed) 0 SEEN /hpf [facility] Work Phone: Nitrite Test strip Ql (U)on 12-23-2021 Nitrite Ql (U) Positive Negative [facility] Work Phone: No Panel Informationon 12-23 Estimated GFR (MDRD) Amer 122 mL/min >60 [facility] Work Phone: Comment on above: GFR Calc Estimated GFR (MDRD) Non-Af Amer 101 mL/min >60 [facility] Work Phone: Comment on above: Non- GFR Calc Free Triiodothyronine (T3) pg/dL 2.5 pg/mL 2.18-3.98 [facility] Work Phone: Thyroid Stimulating Hormone (TSH) 1.21 uIU/mL 0.358-3.74 [facility] Work Phone: Protein Test strip Ql (U)on 12-23-2021 Protein Ql (U) 15 mg/dl Negative [facility] Work Phone: Serum or plasma calcium arya urement (mass/volume)on 12-23-2021 Calcium [Mass/Vol] 8.7 mg/dL 8.5-10.1 [facility] Work Phone: Serum or plasma cholesterol in HDL measurement (mass/volume)on 12-23-2021 Cholesterol in HDL [Mass/Vol] 75 mg/dL [facility] Work Phone: Comment on above: The drugs N-Acetylcy steine and Metamizole may falsely depress this assay. Reference Range HDL <40 mg/dL Low HDL Cholesterol HDL >or= 60 mg/dL High HDL Cholesterol Serum or plasma cholesterol in VLDL measurement (mass/volume)on 12-23-2021 Cholesterol in VLDL [Mass/Vol] 27 mg/dL 5-40 [facility] Work Phone: Serum or plasma creatinine m easurement (mass/volume)on 12-23-2021 Creatinine [Mass/Vol] 0.61 mg/dL 0.55-1.02 [facility] Work Phone: Comment on above: The validity of the calculated GFR & GFRAA in patients over 70 years has not been determined. Clinical correlation is essential. Serum or plasma low density lipoprotein (LDL) cholesterol measurement (mass/volume)on 12-23-2021 Cholesterol in LDL [Mass/Vol] 108 mg/dL 0-130 [facility] Work Phone: Serum or plasma urea nitroge n measurement (mass/volume)on 12-23-2021 Urea nitrogen [Mass/Vol] 9 mg/dL 7-18 [facility] Work Phone: Squamous epithelial cells de tection in urine sediment by light microscopyon 12-23-2021 Epithelial cells.squamous LM Ql (Urine sed) 5-10 SEEN /hpf [facility] Work Phone: Thin prep Papanicolaou smear with manual screeningon 12-23-2021 Thin prep Papanicolaou smear with manual screening 6 5-15 [facility] Work Phone: Urine blood detectionon RBC Ql (U) 25 /ul Negative [facility] Work Phone: RBC Ql (U) 0 SEEN /hpf [facility] Work Phone: Urine clarityon 12-23-2021 Clarity (U) Sl. Cloudy Clear [facility] Work Phone: Urine color determinationon 12-23-2021 Color (U) Yellow Yellow [facility] Work Phone: Urine glucose detectionon Glucose Ql (U) Normal mg/dl Normal [facility] Work Phone: Urine leukocyte esterase det ection by dipstickon 12-23-2021 Leukocyte esterase Test strip Ql (U) 500 /ul Negative [facility] Work Phone: Urine pHon 12-23-2021 pH (U) 6.0 [pH] [facility] Work Phone: Urine sediment bacteria coun t by microscopy (number/high power field)on 12-23-2021 Bacteria LM.HPF (Urine sed) [#/Area] 2 /[HPF] None Seen [facility] Work Phone: Urine specific gravity measu rementon 12-23-2021 Specific gravity (U) [Rel density] 1.015 [facility] Work Phone: Urobilinogen Auto test strip Ql (U)on 12-23-2021 Urobilinogen Ql (U) Normal mg/dl Normal [facility] Work Phone: Vital Signs Date Time Vital Sign Value Performing Clinician Faci lity 06-28-2025 12:04-0500 Body temperature 97.4 [degF] Dr. Cachorro Gonzalez MD Work Phone: [facility] 06-28-2025 12:04-0500 Diastolic blood pressure 42 mm[Hg] Dr. Cachorro Gonzalez MD Work Phone: [facility] 06-28-2025 12:04-0500 Heart rate 92 /min Dr. Cachorro Gonzalez MD Work Phone: [facility] 06-28-2025 12:04-0500 Respiratory rate 16 /min Dr. Cachorro Gonzalez MD Work Phone: 3(583)493-902966 [place] [address] 06-28-2025 12:04-0500 SaO2% (BldA) [Mass fraction] 94 % Dr. Cachorro Gonzalez MD Work Phone: [facility] 06-28-2025 12:04-0500 Systolic blood pressure 99 mm[Hg] Dr. Cachorro Gonzalez MD Work Phone: 9(592)745-010015 [place] [address] 06-28-2025 08:18-0500 Body height 165.[address] Cachorro Gonzalez MD Work Phone: 5(885)359-469015 [place] [address] 06-28-2025 08:18-0500 Body mass index (BMI) [Ratio] 26.5 kg/m2 Dr. Cachorro Gonzalez MD Work Phone: 3(759)968-570966 [place] [address] 06-28-2025 08:18-0500 Body temperature 97.1 [degF] Dr. Cachorro Gonzalez MD Work Phone: 0(444)887-562615 [place] [address] 06-28-2025 08:18-0500 Body weight 72.[address] Cachorro Gonzalez MD Work Phone: 9(531)421-435415 [place] [address] 06-28-2025 08:18-0500 Diastolic blood pressure 69 mm[Hg] Dr. Cachorro Gonzalez MD Work Phone: [facility] 06-28-2025 08:18-0500 Heart rate 77 /min Dr. Cachorro Gonzalez MD Work Phone: 1(937)082-759015 [place] [address] 06-28-2025 08:18-0500 Respiratory rate 18 /min Dr. Cachorro Gonzalez MD Work Phone: 7(123)172-582666 [place] [address] 06-28-2025 08:18-0500 SaO2% (BldA) [Mass fraction] 98 % Dr. Cachorro Gonzalez MD Work Phone: 4(588)969-860015 [place] [address] 06-28-2025 08:18-0500 Systolic blood pressure 114 mm[Hg] Dr. Cachorro Gonzalez MD Work Phone: 0(289)663-962715 [place] [address] 06-12-2025 10:18-0400 Body height 165.[address] Cachorro Gonzalez MD Work Phone: 6(234)039-666015 [place] [address] 06-12-2025 10:18-0400 Body mass index (BMI) [Ratio] 27.3 kg/m2 Dr. Cachorro Gonzalez MD Work Phone: 9(743)007-559015 [place] [address] 06-12-2025 10:18-0400 Body temperature 97.6 [degF] Dr. Cachorro Gonzalez MD Work Phone: 6(466)171-826715 [place] [address] 06-12-2025 10:18-0400 Body weight 74.[address] Cachorro Gonzalez MD Work Phone: 5(417)743-019815 [place] [address] 06-12-2025 10:18-0400 Diastolic blood pressure 76 mm[Hg] Dr. Cachorro Gonzalez MD Work Phone: 2(067)940-203415 [place] [address] 06-12-2025 10:18-0400 Heart rate 82 /min Dr. Cachorro Gonzalez MD Work Phone: 6(364)009-809715 [place] [address] 06-12-2025 10:18-0400 Respiratory rate 18 /min Dr. Cachorro Gonzalez MD Work Phone: 7(924)184-494215 [place] [address] 06-12-2025 10:18-0400 SaO2% (BldA) [Mass fraction] 98 % Dr. Cachorro Gonzalez MD Work Phone: 5(930)070-380615 [place] [address] 06-12-2025 10:18-0400 Systolic blood pressure 130 mm[Hg] Dr. Cachorro Gonzalez MD Work Phone: 9(167)990-244815 [place] [address] 06-09-2025 11:18-0400 Body temperature 97.3 [degF] Dr. Cachorro Gonzalez MD Work Phone: 7(992)701-172415 [place] [address] 06-09-2025 11:18-0400 Diastolic blood pressure 68 mm[Hg] Dr. Cachorro Gonzalez MD Work Phone: 2(313)269-742915 [place] [address] 06-09-2025 11:18-0400 Heart rate 87 /min Dr. Cachorro Gonzalez MD Work Phone: 1(566)830-591215 [place] [address] 06-09-2025 11:18-0400 Respiratory rate 16 /min Dr. Cachorro Gonzalez MD Work Phone: 3(502)984-711315 [place] [address] 06-09-2025 11:18-0400 SaO2% (BldA) [Mass fraction] 97 % Dr. Cachorro Gonzalez MD Work Phone: 5(292)665-854915 [place] [address] 06-09-2025 11:18-0400 Systolic blood pressure 101 mm[Hg] Dr. Cachorro Gonzalez MD Work Phone: 1(238)788-715015 [place] [address] 06-07-2025 08:13-0400 Body mass index (BMI) [Ratio] 26.6 kg/m2 Dr. Cachorro Gonzalez MD Work Phone: 7(104)666-320315 [place] [address] 06-07-2025 08:13-0400 Body temperature 98.5 [degF] Dr. Cachorro Gonzalez MD Work Phone: 5(684)011-293515 [place] [address] 06-07-2025 08:13-0400 Body weight 72.[address] Cachorro Gonzalez MD Work Phone: 5(054)181-291915 [place] [address] 06-07-2025 08:13-0400 Diastolic blood pressure 65 mm[Hg] Dr. Cachorro Gonzalez MD Work Phone: 9(807)736-267315 [place] [address] 06-07-2025 08:13-0400 Heart rate 71 /min Dr. Cachorro Gonzalez MD Work Phone: 6(759)263-789815 [place] [address] 06-07-2025 08:13-0400 Respiratory rate 16 /min Dr. Cachorro Gonzalez MD Work Phone: 1(741)583-745615 [place] [address] 06-07-2025 08:13-0400 SaO2% (BldA) [Mass fraction] 99 % Dr. Cachorro Gonzalez MD Work Phone: 1(934)500-470115 [place] [address] 06-07-2025 08:13-0400 Systolic blood pressure 103 mm[Hg] Dr. Cachorro Gonzalez MD Work Phone: 6(500)885-421615 [place] [address] 06-06-2025 14:30-0400 Body temperature 97.6 [degF] Dr. Cachorro Gonzalez MD Work Phone: 1(970)708-061615 [place] [address] 06-06-2025 14:30-0400 Diastolic blood pressure 59 mm[Hg] Dr. Cachorro Gonzalez MD Work Phone: 1(130)170-373015 [place] [address] 06-06-2025 14:30-0400 Heart rate 81 /min Dr. Cachorro Gonzalez MD Work Phone: 5(507)141-525615 [place] [address] 06-06-2025 14:30-0400 Respiratory rate 16 /min Dr. Cachorro Gonzalez MD Work Phone: 0(586)764-327615 [place] [address] 06-06-2025 14:30-0400 SaO2% (BldA) [Mass fraction] 98 % Dr. Cachorro Gonzalez MD Work Phone: 9(541)176-814315 [place] [address] 06-06-2025 14:30-0400 Systolic blood pressure 104 mm[Hg] Dr. Cachorro Gonzalez MD Work Phone: 9(657)156-196915 [place] [address] 06-06-2025 11:13-0400 Body mass index (BMI) [Ratio] 26.4 kg/m2 Dr. Cachorro Gonzalez MD Work Phone: 5(475)312-027815 [place] [address] 06-06-2025 11:13-0400 Body weight 71.[address] Cachorro Gonzalez MD Work Phone: 5(826)536-702815 [place] [address] 05-29-2025 08:44-0400 Body height 165.[address] Cachorro Gonzalez MD Work Phone: 5(612)217-848815 [place] [address] 05-29-2025 08:44-0400 Body mass index (BMI) [Ratio] 26.4 kg/m2 Dr. Cachorro Gonzalez MD Work Phone: 5(289)913-534115 [place] [address] 05-29-2025 08:44-0400 Body weight 72.[address] Cachorro Gonzalez MD Work Phone: 0(973)628-918015 [place] [address] 05-29-2025 08:44-0400 Diastolic blood pressure 66 mm[Hg] Dr. Cachorro Gonzalez MD Work Phone: 3(056)419-420815 [place] [address] 05-29-2025 08:44-0400 Heart rate 74 /min Dr. Cachorro Gonzalez MD Work Phone: [facility] 05-29-2025 08:44-0400 Respiratory rate 17 /min Dr. Cachorro Gonzalez MD Work Phone: [facility] 05-29-2025 08:44-0400 SaO2% (BldA) [Mass fraction] 98 % Dr. Cachorro Gonzalez MD Work Phone: 5(088)997-507415 [place] [address] 05-29-2025 08:44-0400 Systolic blood pressure 108 mm[Hg] Dr. Cachorro Gonzalez MD Work Phone: 3(825)056-451115 [place] [address] 05-25-2025 09:18-0400 Body height 165.[address] Cachorro Gonzalez MD Work Phone: 3(630)532-423015 [place] [address] 05-25-2025 09:18-0400 Body mass index (BMI) [Ratio] 26.6 kg/m2 Dr. Cachorro Gonzalez MD Work Phone: 8(316)271-053315 [place] [address] 05-25-2025 09:18-0400 Body temperature 98.2 [degF] Dr. Cachorro Gonzalez MD Work Phone: 3(027)240-656115 [place] [address] 05-25-2025 09:18-0400 Body weight 72.[address] Cachorro Gonzalez MD Work Phone: 1(632)928-207315 [place] [address] 05-25-2025 09:18-0400 Diastolic blood pressure 75 mm[Hg] Dr. Cachorro Gonzalez MD Work Phone: 9(185)337-271715 [place] [address] 05-25-2025 09:18-0400 Heart rate 81 /min Dr. Cachorro Gonzalez MD Work Phone: 5(604)332-794915 [place] [address] 05-25-2025 09:18-0400 Respiratory rate 18 /min Dr. Cachorro Gonzalez MD Work Phone: 1(394)179-213315 [place] [address] 05-25-2025 09:18-0400 SaO2% (BldA) [Mass fraction] 99 % Dr. Cachorro Gonzalez MD Work Phone: 2(388)746-541415 [place] [address] 05-25-2025 09:18-0400 Systolic blood pressure 146 mm[Hg] Dr. Cachorro Gonzalez MD Work Phone: [facility] 05-23-2025 14:38-0400 Body height 165.[address] Cachorro Gonzalez MD Work Phone: [facility] 05-23-2025 14:38-0400 Body mass index (BMI) [Ratio] 26.6 kg/m2 Dr. Cachorro Gonzalez MD Work Phone: 7(886)232-854445 [address] 05-23-2025 14:38-0400 Body temperature 97.5 [degF] Dr. Cachorro Gonzalez MD Work Phone: 7(973)247-673915 [place] [address] 05-23-2025 14:38-0400 Body weight 72.[address] Cachorro Gonzalez MD Work Phone: 0(903)443-210515 [place] [address] 05-23-2025 14:38-0400 Diastolic blood pressure 74 mm[Hg] Dr. Cachorro Gonzalez MD Work Phone: 3(277)326-075015 [place] [address] 05-23-2025 14:38-0400 Heart rate 78 /min Dr. Cachorro Gonzalez MD Work Phone: 4(399)697-230415 [place] [address] 05-23-2025 14:38-0400 Respiratory rate 18 /min Dr. Cachorro Gonzalez MD Work Phone: 4(925)774-838615 [place] [address] 05-23-2025 14:38-0400 SaO2% (BldA) [Mass fraction] 97 % Dr. Cachorro Gnozalez MD Work Phone: 7(684)545-055566 [place] [address] 05-23-2025 14:38-0400 Systolic blood pressure 125 mm[Hg] Dr. Cachorro Gonzalez MD Work Phone: 3(906)569-573766 [place] [address] 05-11-2025 10:17-0400 Body height 165.[address] Cachorro Gonzalez MD Work Phone: 1(818)991-467015 [place] [address] 05-11-2025 10:17-0400 Body mass index (BMI) [Ratio] 26.8 kg/m2 Dr. Cachorro Gonzalez MD Work Phone: 1(846)027-690466 [place] [address] 05-11-2025 10:17-0400 Body temperature 97.9 [degF] Dr. Cachorro Gonzalez MD Work Phone: [facility] 05-11-2025 10:17-0400 Body weight 73.[address] Cachorro Gonzalez MD Work Phone: [facility] 05-11-2025 10:17-0400 Diastolic blood pressure 68 mm[Hg] Dr. Cachorro Gonzalez MD Work Phone: 7(163)692-229266 [place] [address] 05-11-2025 10:17-0400 Heart rate 74 /min Dr. Cachorro Gonzalez MD Work Phone: 5(844)474-963466 [place] [address] 05-11-2025 10:17-0400 Respiratory rate 18 /min Dr. Cachorro Gonzalez MD Work Phone: 8(847)016-561315 [place] [address] 05-11-2025 10:17-0400 SaO2% (BldA) [Mass fraction] 98 % Dr. Cachorro Gonzalez MD Work Phone: 6(099)902-435666 [place] [address] 05-11-2025 10:17-0400 Systolic blood pressure 112 mm[Hg] Dr. Cachorro Gonzalez MD Work Phone: 5(022)031-003245 [address] 05-08-2025 08:53-0400 Body height 165.[address] Cachorro Gonzalez MD Work Phone: 6(013)395-304115 [place] [address] 05-08-2025 08:53-0400 Body mass index (BMI) [Ratio] 26.6 kg/m2 Dr. Cachorro Gonzalez MD Work Phone: 6(440)709-004366 [place] [address] 05-08-2025 08:53-0400 Body weight 72.[address] Cachorro Gonzalez MD Work Phone: [facility] 05-08-2025 08:53-0400 Diastolic blood pressure 66 mm[Hg] Dr. Cachorro Gonzalez MD Work Phone: [facility] 05-08-2025 08:53-0400 Heart rate 80 /min Dr. Cachorro Gonzalez MD Work Phone: 8(747)205-646166 [place] [address] 05-08-2025 08:53-0400 Respiratory rate 18 /min Dr. Cachorro Gonzalez MD Work Phone: [facility] 05-08-2025 08:53-0400 Systolic blood pressure 114 mm[Hg] Dr. Cachorro Gonzalez MD Work Phone: [facility] 04-10-2025 07:55-0400 Body height 165.[address] Cachorro Gonzalez MD Work Phone: 5(507)023-220945 [address] 04-10-2025 07:55-0400 Body mass index (BMI) [Ratio] 26.9 kg/m2 Dr. Cachorro Gonzalez MD Work Phone: 0(243)960-403645 [address] 04-10-2025 07:55-0400 Body weight 73.[address] Cachorro Gonzalez MD Work Phone: 5(953)619-402315 [place] [address] 04-10-2025 07:55-0400 Diastolic blood pressure 76 mm[Hg] Dr. Cachorro Gonzalez MD Work Phone: 8(657)338-309915 [place] [address] 04-10-2025 07:55-0400 Respiratory rate 16 /min Dr. Cachorro Gonzalez MD Work Phone: [facility] 04-10-2025 07:55-0400 Systolic blood pressure 131 mm[Hg] Dr. Cachorro Gonzalez MD Work Phone: [facility] 02-07-2025 10:05-0400 Respiratory rate 16 /min Dr. Cachorro Gonzalez MD Work Phone: [facility] 02-07-2025 10:05-0400 SaO2% (BldA) [Mass fraction] 97 % Dr. Cachorro Gonzalez MD Work Phone: [facility] 02-07-2025 10:04-0400 Body temperature 97.8 [degF] Dr. Cachorro Gonzalez MD Work Phone: [facility] 02-07-2025 10:04-0400 Diastolic blood pressure 54 mm[Hg] Dr. Cachorro Gonzalez MD Work Phone: [facility] 02-07-2025 10:04-0400 Heart rate 77 /min Dr. Cachorro Gonzalez MD Work Phone: [facility] 02-07-2025 10:04-0400 Systolic blood pressure 95 mm[Hg] Dr. Cachorro Gonzalez MD Work Phone: 3(891)637-122545 [address] 02-07-2025 09:25-0400 Body temperature 97.8 [degF] Dr. Cachorro Gonzalez MD Work Phone: 1(495)848-238215 [place] [address] 02-07-2025 09:25-0400 Diastolic blood pressure 43 mm[Hg] Dr. Cachorro Gonzalez MD Work Phone: 7(329)907-198415 [place] [address] 02-07-2025 09:25-0400 Heart rate 76 /min Dr. Cachorro Gonzalez MD Work Phone: 2(576)462-725415 [place] [address] 02-07-2025 09:25-0400 Respiratory rate 18 /min Dr. Cachorro Gonzalez MD Work Phone: 2(184)263-139815 [place] [address] 02-07-2025 09:25-0400 SaO2% (BldA) [Mass fraction] 100 % Dr. Cachorro Gonzalez MD Work Phone: 2(825)869-489215 [place] [address] 02-07-2025 09:25-0400 Systolic blood pressure 113 mm[Hg] Dr. Cachorro Gonzalez MD Work Phone: 6(851)505-559115 [place] [address] 02-07-2025 07:30-0400 Body height 165.[address] Cachorro Gonzalez MD Work Phone: 5(923)260-336915 [place] [address] 02-07-2025 07:30-0400 Body mass index (BMI) [Ratio] 26 kg/m2 Dr. Cachorro Gonzalez MD Work Phone: 7(922)256-452045 [address] 02-07-2025 07:30-0400 Body weight [address] Cachorro Gonzalez MD Work Phone: 4(305)222-112415 [place] [address] 01-09-2025 13:52-0400 Body height 162.[address] Cachorro Gonzalez MD Work Phone: 4(954)476-188415 [place] [address] 01-09-2025 13:52-0400 Body mass index (BMI) [Ratio] 27.9 kg/m2 Dr. Cachorro Gonzalez MD Work Phone: [facility] 01-09-2025 13:52-0400 Body weight 73.[address] Cachorro Gonzalez MD Work Phone: [facility] 01-09-2025 13:52-0400 Diastolic blood pressure 75 mm[Hg] Dr. Cachorro Gonzalez MD Work Phone: [facility] 01-09-2025 13:52-0400 Heart rate 64 /min Dr. Cachorro Gonzalez MD Work Phone: [facility] 01-09-2025 13:52-0400 Respiratory rate 17 /min Dr. Cachorro Gonzalez MD Work Phone: [facility] 01-09-2025 13:52-0400 SaO2% (BldA) [Mass fraction] 97 % Dr. Cachorro Gonzalez MD Work Phone: [facility] 01-09-2025 13:52-0400 Systolic blood pressure 126 mm[Hg] Dr. Cachorro Gonzalez MD Work Phone: [facility] Encounters Encounter Date Encounter Type Care Provider Facility Start: 06-29-2025 ambulatory Cachorro Gonzalez Facility:[facility] Start: 06-28-2025 End: 06-28-2025 ambulatory Ngozi Carly [employer] Facility:[facility] Start: 06-12-2025 End: 06-12-[address] Ratna Bell MD -[facility] Work Phone: Start: 06-12-2025 End: 06-12-[address] Cachorro Gonzalez MD Work Phone: [facility] Start: 06-07-2025 End: 06-07-2025 Patient encounter procedure Ngozi Carly [employer] ATTENDANT-[facility] Work Phone: Start: 06-07-2025 End: 06-07-[address] Cachorro Gonzalez MD Work Phone: [facility] Start: 06-06-2025 ambulatory Von flahertyy:YULIYA Start: 06-06-2025 Non-patient / Non-visit Dr. Von Velez MD -[facility] Start: 06-06-2025 End: 06-06-2025 Admission to same day surgery center Dr. [facility]elez [facility] Start: 06-06-2025 End: 06-06-2025 ambulatory Dr. Cachorro Gonzalez MD Work Phone: -[facility] Start: 05-29-2025 End: 05-29-[address] Von Velez MD -[facility] Work Phone: Start: 05-29-2025 End: 05-29-[address] Cachorro Gonzalez MD Work Phone: -[facility] Start: 05-25-2025 End: 05-25-2025 Patient encounter procedure Ngozi Carly PAYNE-Dean -[facility] Work Phone: Start: 05-25-2025 End: 05-25-[address] Cachorro Gonzalez MD Work Phone: [facility] Start: 05-23-2025 End: 05-23-[address] Ratna Bell MD -[facility] Work Phone: Start: 05-23-2025 End: 05-23-[address] Cachorro Gonzalez MD Work Phone: [facility] Start: 05-16-[address] William Bell MD -[facility] Start: 05-11-[address] William Bell MD -[facility] Start: 05-11-2025 End: 05-11-[address] Ratna Bell MD -[facility] Work Phone: Start: 05-11-2025 End: 05-11-[address] Cachorro Gonzlaez MD Work Phone: [facility] Start: 05-08-2025 End: 05-08-[address] Leonel Feng MD -[facility] Work Phone: Start: 05-08-2025 End: 05-08-[address] Cachorro Gonzalez MD Work Phone: -[facility] Start: 04-10-2025 End: 04-10-[address] Von Velez MD -[facility] Work Phone: Start: 04-10-2025 End: 04-10-[address] Cachorro Gonzalez MD Work Phone: -[facility] Start: 04-04-2025 End: 04-04-[address] Cachorro Gonzalez MD Work Phone: -Outpatient Breast Imaging Start: 04-04-2025 End: 04-04-[address] Cachorro Gonzalez MD -[facility]patient [facility] Work Phone: Start: 04-04-2025 End: 04-04-2025 ambulatory Cachorro Gonzalez Facility:[facility] Start: 03-04-2025 End: 03-04-[address] Cachorro Gonzalez MD Work Phone: -Cardiovascular Services Start: 03-04-2025 End: 03-04-[address] Cachorro Gonzalez MD -Cardiovascular Services Work Phone: Start: 03-03-2025 End: 03-04-2025 ambulatory Cachorro Gonzalez Facility:[facility] Start: 03-03-2025 Non-patient / Non-visit Dr. Agustin Morataya MD -[facility] Start: 02-23-2025 End: 02-23-[address] Cachorro Gonzalez MD Work Phone: -Laboratory [facility] Start: 02-23-2025 End: 02-23-[address] Cachorro Gonzalez MD -[facility] Start: 02-23-2025 End: 02-23-2025 ambulatory Cachorro Gonzalez Facility:[facility] Start: 02-07-2025 ambulatory Cachorro Gonzalez Facility:[facility] Start: 02-07-2025 Non-patient / Non-visit Dr. Von Velez MD -[facility] Start: 02-07-2025 End: 02-07-2025 Admission to same day surgery center Dr. Von Velez MD -Endoscopy Work Phone: Start: 02-07-2025 End: 02-07-[address] Cachorro Gonzalez MD Work Phone: [facility] Work Phone: Start: 01-09-2025 End: 01-09-[address] Von Velez MD -[facility] Work Phone: Start: 01-09-2025 End: 01-09-[address] Cachorro Gonzalez MD Work Phone: [facility] Work Phone: Start: 12-28-2024 End: 12-28-[address] Cachorro Gonzalez MD Work Phone: [facility] Work Phone: Start: 12-28-2024 End: 12-28-[address] Cachorro Gonzalez MD -[facility] Start: 12-28-2024 End: 12-28-2024 ambulatory Cachorro Gonzalez Facility:[facility] Start: 09-06-2024 End: 09-06-2024 Patient encounter procedure Candie Calderon [employer] ATTENDANT-C -Laboratory, Specimen Work Phone: Start: 09-06-2024 End: 09-06-2024 ambulatory Candie Calderon NP Facility:[facility] Start: 12-28-2023 End: 12-28-2023 ambulatory [facility] Work Phone: Start: 12-28-2023 End: 12-28-2023 Patient encounter procedure [facility] Start: 06-26-2023 End: 06-26-2023 ambulatory [facility] Work Phone: Start: 06-26-2023 End: 06-26-2023 Patient encounter procedure [facility] Start: 07-30-2022 End: 07-30-2022 ambulatory [facility] Work Phone: Start: 07-30-2022 End: 07-30-2022 Patient encounter procedure [facility]-Outpatient Breast Imaging Start: 06-25-2022 End: 06-25-2022 ambulatory [facility] Work Phone: Start: 06-25-2022 End: 06-25-2022 [facility] Start: 12-23-2021 End: 12-23-2021 [facility] Start: 02-23-2019 End: 02-23-2019 [facility] Scheduling Comment on above: Right foot drop (Mariam gregory Dx) Procedures Date Procedure Procedure Detail Performing Clinician Start: 06-29-2025 Urnls dip stick/tabl et reagent auto microscopy Dr. Cachorro Gonzalez MD Work Phone: Start: 06-28-[address] Cachorro Gonzalez MD Work Phone: Start: 06-28-2025 Serum inorganic phos phate measurement Dr. Cachorro Gonzalez MD Work Phone: Start: 06-12-[address] Cachorro Gonzalez MD Work Phone: Start: 06-12-2025 Neutrophil percent differential count Dr. Cachorro Gonzalez MD Work Phone: Start: 06-06-2025 Plain chest X-ray Dr. Estiven Gonzalez MD Work Phone: Start: 06-06-2025 Fluoroscopic guidance Terry Gonzalez MD Work Phone: Start: 05-16-2025 Positron emission to mography with computed tomography Dr. Cachorro Gonzalez MD Work Phone: Start: 05-11-2025 Hepatitis B surface antibody measurement Dr. Cachorro Gonzalez MD Work Phone: Start: 05-11-2025 Total iron binding c apacity measurement Dr. Cachorro Gonzalez MD Work Phone: Start: 04-04-[address] Cachorro Gonzalez MD Work Phone: Start: 04-04-2025 Bilateral mammography Terry Gonzalez MD Work Phone: Start: 02-07-[address] Cachorro felipe MD Work Phone: Start: 09-06-[address] Cachorro Gonzalez MD Work Phone: Start: 07-30-2022 Screening mammography Plan of Treatment Date Care Activity Detail Author Start: 06-29-2025 Bacteria identified in Urine by Culture Urine Culture [facility] Start: 06-29-2025 Registered Recurring Registered Recurring -[facility] Start: 06-28-2025 Serum inorganic phosphate measurement [facility] Start: 06-28-2025 End: 06-28-2025 Patient encounter procedure DLBCL (diffuse large B cell lymphoma) -[facility] Work Phone: Start: 06-12-2025 End: 06-12-2025 Patient encounter procedure DLBCL (diffuse large B cell lymphoma) -[facility] Work Phone: Start: 06-12-2025 Registered Recurring Registered Recurring -[facility] Start: 06-07-2025 Venous catheter care management [facility] Start: 06-06-2025 Patient discharge [facility] Start: 06-06-2025 Anesthesia access central venous circulation ANESTH VASCULAR ACCESS [facility] Start: 06-06-2025 Insj tunneled ctr vad w/subq port age 4 yr/> INSERT TUNNELED CV CATH [facility] Start: 05-16-2025 Positron emission tomography with computed tomography [facility] Start: 05-08-2025 End: 05-08-2025 Evaluation of diagnostic study results [facility] Start: 02-07-2025 Colonoscopy DIAGNOSTIC COLONOSCOPY [facility] Start: 02-07-2025 Colonoscopy flx dx w/collj spec when pfrmd DIAGNOSTIC COLONOSCOPY [facility] Start: 02-07-2025 Esophagogastroduodenoscopy EGD DIAGNOSTIC BRUSH WASH [facility] Start: 02-07-2025 Esophagogastroduodenoscopy transoral diagnostic EGD DIAGNOSTIC BRUSH WASH [facility] Start: 02-07-2025 Patient discharge [facility] Start: 04-24-2019 Influenza vaccination INFLUENZA VACCINE (#1) [facility] Start: 2009 Pneumococcal vaccination PNEUMOCOCCAL VACCINE SERIES (1 of 2 - PCV13) [facility] Start: 1994 Colonoscopy COLON CANCER SCREENING DISCUSSION [facility] Start: 1994 Zoster vaccine hzv live for subcutaneous use ZOSTER (SHINGLES) VACCINE (1 of 2) [facility] Start: 1984 Fasting lipid profile LIPID SCREENING [facility] Start: 1984 Screening mammography MAMMOGRAM SCREENING DISCUSSION [facility] Start: 1965 Screening for malignant neoplasm of cervix PAP SMEAR DISCUSSION [facility] Start: 1963 Third diphtheria, tetanus and acellular pertussis (DTaP) vaccination TDAP (ADULT) [facility] Start: 1962 Tetanus vaccination TETANUS [facility] Start: 1944 Screening for osteoporosis DEXA SCAN DISCUSSION [facility] CBC W Auto Different ial panel - Blood [facility] Colonoscopy [facility] Comprehensive metabo lic 1999 panel - Serum or Plasma [facility] Lipid 1996 panel - Serum or Plasma [facility] Magnesium measurement [facility] Patient referral [facility] Work Phone: PT Unspecified body region W [facility] Urine culture [facility] Payers Date Payer Category Payer Unknown [id number] 2024 Private Health Insurance [id number] 2024 Self-pay [id number] Medicare [id number] Unknown Unknown [id number] 2.16.8 [id number] Unknown [id number] 2.16.8 40.1.437840.3.579.2.462 Unknown [id number] 2.16.8 40.1.072224.3.579.2.462 Unknown [id number] 2.16.8 40.1.812548.3.579.2.462 Unknown [id number] 2.16.8 40.1.406957.3.579.2.462 Unknown [id number] 2.16.8 40.1.717844.3.579.2.462 Unknown [id number] 2.16.8 40.1.156494.3.579.2.462 Unknown [id number] 2.16.8 40.1.233703.3.579.2.462 Unknown [id number] 2.16.8 40.1.849934.3.579.2.462 Unknown [id number] 2.16.8 40.1.546799.3.579.2.462 Unknown [id number] 2.16.8 40.1.113289.3.579.2.462 Unknown [id number] 2.16.8 40.1.854785.3.579.2.462 Unknown [id number] 2.16.8 40.1.427806.3.579.2.462 Unknown [id number] 2.16.8 40.1.414002.3.579.2.462 Unknown [id number] 2.16.8 40.1.726090.3.579.2.462 Unknown [id number] 2.16.8 40.1.340191.3.579.2.462 Unknown [id number] 2.16.8 40.1.901278.3.579.2.462 Unknown [id number] 2.16.8 40.1.686478.3.579.2.462 Unknown [id number] 2.16.8 40.1.335818.3.579.2.462 Unknown [id number] 2.16.8 40.1.441116.3.579.2.462 Unknown [id number] 2.16.8 40.1.448091.3.579.2.462 Unknown [id number] 2.16.8 40.1.003323.3.579.2.462 Unknown [id number] 2.16.8 40.1.636779.3.579.2.462 Social History Date Type Detail Facility Tobacco smoking status NHIS Unknown if ever smoked [facility] Sex Assigned At Not on file [facility] Start: 07-27-2020 End: 07-27-2020 Tobacco smoking status NHIS Unknown if ever smoked [facility] Start: 11-25-2018 Non-smoker [facility] Start: 1945 Sex Assigned At Female [facility] Start: 07-27-2020 End: 05-31-2025 Tobacco smoking status NHIS Never smoked tobacco (finding) [facility] Not [facility] NEGATED: Highlighted row Not [facility] Medical Equipment Procedure Code Equipment Code Equipment Origin al Text Equipment Identifier Dates Insertion, vascular access port ([id number]) Vascular port/catheter ([id number] FDA Start: 06-06-2025 Goals Date Patient Goal Desired Activity /State Mental Status Date Assessment Result Facility 06-06-2025 Cognitive function Voice/Name [facility] Work Phone: 02-07-2025 Cognitive function Voice/Name;Touch/Shaki ng [facility] Work Phone: Clinical Notes 01-09-2025 to 06-12-2025 Note Date & Type Note Facility 06-12-2025 Progress note [facility] 06-07-2025 Progress note [facility] 06-06-2025 History and physi deyvi note [facility] 06-06-2025 Radiology Diagnostic study note [facility] Imaging Services [address] [place] [address] CXR for Line Placement MR#: [id number] Acct: [id number] Name: JULIA PLASCENCIA YANG Rep #: [id number] : 1945 F 80 From: Juancho Tafoya MD PCP: Dr. Cachorro Gonzalez MD Status: REG S DC Study:CXR for Line Placement Date of Exam: 06/06/25 Exam# [id number] Ordering Dr: Von Oh MD PROCEDURE: CXR FOR LINE PLACEMENT 06/06/2025 REASON FOR EXAM: LINE PLACEMENT TECHNIQUE: Procedure Code: RADCXRLP Modality: DX Procedure: CXR FOR LINE PLACEMENT COMPARISON: 05/17/2025 PET-CT. FINDINGS: Right chest Port-A-Cath with tip terminating in the mid superior vena cava. No pneumothorax. The heart appears enlarged which may be due to cardiomegaly or exaggerated AP technique. Left basilar calcific density favoring a calcified granuloma. RAD/CXR for Line Placement IMPRESSION: Right chest Port-A-Cath. No pneumothorax. Reading Location: [address] CC: Dr. Von Velez MD; Dr. Cachorro Gonzalez MD ~ Hydraulic Miner: Signed [facility] 06-06-2025 History and physical note Note Date/Time June 06, 2025 3:13pm [facility] Medical Records Department [address] [place] [id number] History & Physical Exam 06/06/25 1252 MR#: [id number] Acct: [id number] Name: JULIA PLASCENCIAU Rep #:[id number] : 1945 80 From: Von bhandari MD PCP: Dr. Cachorro Gonzalez MD Status:REG S DC Location: [place] [address] History and Physical Date of Admission: 06/06/25 Intake Vital Signs 05/25/2509:18 05/29/2508:44 Height 5 ft 5 in 5 ft 5 in Weight: 160 lb 159 lb BMI 26.6 26.4 BP 146/75 H 108/66 Blood Pressure Location Lt brachial Rt brachial Position Sitting Sitting Respiration 18 17 Pulse 81 74 Pulse Source Monitor Monitor Temp 98.2 F Pulse Oximetry (%) 99 98 Oxygen Delivery Method room air room air Intake Visit Reasons: DISCUSS PORT PLACEMENT Chief Complaint: discuss port placement Is patient in pain?: No Allergies No Known Allergies Allergy (Verified 05/29/25 08:45) Medications ?Medication ?Instructions ?Recorded ?Confirmed ?Type calcium carbonate (Calcium 500) 500 mg PO DAILY 10/13/17 05/29/25 Histor y folic acid 0.8 mg capsule 800 mcg PO QDAY 10/13/17 05/29/25 Histor y levothyroxine 75 mcg capsule 75 mcg PO DAILY 10/13/17 05/29/25 Histor y metformin 1,000 mg tablet 1,000 mg PO BID 10/13/17 05/29/25 Histor y multivitamin 1 tab PO QAM 10/13/17 05/29/25 History magnesium oxide 400 mg (241.3 mg 400 mg PO DAILY 10/16/17 05/29/25 Histor y magnesium) tablet aspirin 81 mg tablet,delayed 81 mg PO DAILY heart health 10/24/1902/15 History release ferrous sulfate 325 mg (65 mg 325 mg PO TID 01/09/25 05/29/25 History iron) tablet (Feosol) gabapentin 300 mg capsule 300 mg PO QHS PRN 05/08/25 05/29/25 Hist ory glimepiride 1 mg tablet 1 mg PO QDAY 05/08/25 05/29/25 History acyclovir 400 mg tablet 400 mg PO BID #60 tabs 05/25/25 05/29/25 Rx allopurinol 300 mg tablet 300 mg PO .COMPLEX #10 tabs 05/25/2502/15 Rx lidocaine-prilocaine 2.5 %-2.5 % 1 applic topical ONCE PRN port 05/25/25 05/29/25 Rx topical cream access 30 days #30 grams ondansetron 8 mg disintegrating 8 mg PO Q8H PRN nausea and 05/25/2502/15 Rx tablet vomiting #30 tabs prednisone 50 mg tablet 100 mg (2 x 50 mg) PO .COMPLEX #60 05/2505/29/25 Rx tabs prochlorperazine maleate 10 mg 10 mg PO Q6H PRN nausea and 05/25/2502/15 Rx tablet vomiting #30 tabs Have you fallen in the past year?: No PFSH Medical History (Updated 05/29/25 @ 08:44 by Gregory Hernandez) Encounter for education DLBCL (diffuse large B cell lymphoma) Hypothyroidism Wears partial dentures Wears glasses Post-menopausal Non-smoker [...] HPI HPI: Patient is an 80-year-old female 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 I discussed placing a chest port with her at today's visit. ROS General General: Yes weight change and fatigue; No appetite, colon cancer, breast cancer or weakness HEENT HEENT: No difficulty swallowing, eye injury, eye surgery, swollen glands or hoarseness Endo Endocrine: Yes thyroid disease and diabetes mellitus; No thyroid cancer, Hair loss, heat intolerance or cold intolerance Skin Skin: No rash or changing moles Musc Musculoskeletal: No back problems, arthritis, rheumatoid [...] Assessment and Plan Assessment and Plan (1) Encounter for insertion of venous access port: Status: Acute Plan: I discussed placing a right chest port on the patient. I discussed port placement as well as the risks of the procedure such as bleeding, infection, pneumothorax, line infection. Patient understands the risks and is willing to proceed. Von Velez MD Pager: [facility] [address] [place] [address], [address] [place] [address] Office: I have examined the patient and the H&P has been reviewed. There are no clinicalchanges since date of exam. 06/06/25 1252 <Electronically signed by Von Velez MD> Cosigner Signature (if applicable): CC: Dr. Von Velez MD; Dr. Cachorro Gonzalez MD~ Signed [facility] Work Phone: 1(136) 921-650710-14-2025 Consult note [facility] Medical Records Department [address] [place] [id number] Anesthesia Postop Eval I 06/06/25 1416 MR#: [id number] Acct: [id number] Name: JULIA PLASCENCIAU Rep #:[id number] : 1945 80 From: Michael Marroquin CRNA PCP: Dr. Cachorro Gonzalez MD Status:REG S DC Y Race: C Location: [place] [address] Anesthesia: Postop Eval I Current Vital Signs Temperature: 96.9 F Pulse Rate: 87 Blood Pressure: 115/76 Respiratory Rate: 12 Pulse Ox: 97 Oxygen Delivery Method: Room Air Assessment Airway patent: Yes Spontaneous unlabored respirations: Yes Mental status: Awake and Calm nausea: No Vomiting: No Anesthesia Complication: No Fluid Hydration Crystalloid volume administer (ml): 600 Total IV fluid infused: 600 Progress Note Anesthesia document: Postop Eval 1 completed: Yes 06/06/25 141 an [employer]> Date _ Michael Marroquin [employer] Cosigner Signature: Date CC: ~ Signed [facility]10-14-2025 Discharge summary [facility] Medical Records Department [address] [place] [id number] Instructions for Home/Discharge Instructions 06/06/25 1413 MR#: [id number] Acct: [id number] Name: JULIA PLASCENCIAU Rep #:[id number] : 1945 80 From: Von bhandari MD PCP: Dr. Cachorro Gonzalez MD Status:REG S DC Discharge Instructions Procedure Port-A-Cath Diet Discharge Diet: Light diet - advance as tolerated (Pain medication may cause nausea. You should typically eat light foods as you take your pain medication.) Activity Discharge Activity: Return to Normal Activity and May Shower (with your bandage in place in 1-2 days after surgery. DO NOT SHOWER WHEN YOUR PORT IS ACCESSED.) Lifting Restrictions: 15 pounds for 1 week Additional Activity Instructions:: Alternate ibuprofen and Tylenol for pain control Resume aspirin tomorrow Dressing / Incision Call your doctor if your incision/area has: Continuous Slow Oozing, Sudden Increased Bleeding, Increased Pain/ Swelling, Increased Redness and Foul Smelling Discharge Call your doctor if you observe: Fever of 101 or Higher Remove Dressing in: 2 days Cleanse incision/area with: Soap & Water Follow Up Care Please Follow Up With: Von eVlez MD When: as needed [phone] Test Results: Test results from this visit will be discussed in further detail at your follow- up appointment, if applicable. Discharge Plan Admission Attending Provider: Von Velez Primary Care Provider: Cachorro Gonzalez Instructions Print Language: Dutch Discharge Orders/Prescriptions Prescriptions: No Action metformin 1,000 mg tablet 1,000 mg PO BID levothyroxine 75 mcg capsule 75 mcg PO DAILY calcium carbonate [Calcium 500] 500 mg calcium (1,250 mg) tablet 500 mg PO DAILY folic acid 0.8 mg capsule 800 mcg PO QDAY multivitamin tablet 1 tab PO QAM magnesium oxide 400 mg tablet 400 mg PO DAILY ferrous sulfate [Feosol] 325 mg (65 mg iron) tablet 325 mg PO TID glimepiride 1 mg tablet 1 mg PO QDAY gabapentin 300 mg capsule 300 mg PO QHS PRN (Reason: pain) prochlorperazine maleate 10 mg tablet 10 mg PO Q6H PRN (Reason: nausea and vomiting) Qty: 30 2RF acyclovir 400 mg tablet 400 mg PO BID Qty: 60 0RF ondansetron 8 mg tablet,disintegrating 8 mg PO Q8H PRN (Reason: nausea and vomiting) Qty: 30 2RF lidocaine-prilocaine 2.5-2.5 % cream 1 applic topical ONCE PRN (Reason: port access) 30 Days Qty: 30 2RF prednisone 50 mg tablet 100 mg PO .COMPLEX Qty: 60 0RF Rx Instructions: 100 mg orally daily ONLY days 1-5 of treatment cycle allopurinol 300 mg tablet 300 mg PO .COMPLEX Qty: 10 0RF Rx Instructions: 300 mg orally daily on days 0-9 of treatment cycle only aspirin 81 MG tablet,delayed release (DR/EC) 81 mg PO DAILY Patient Comments: follow instructions about stopping Referrals / Follow Up: Cachorro Gonzalez MD [Primary Care Provider, Family Practice] Disposition Disposition (needs filled in before D/C Order can be placed): Home, Self Care 06/06/25 1414Ajewel Velez MD CC: Dr. Cachorro Gonzalez MD ~ Signed [facility]10-14-2025 Procedure note [facility] Medical Records Department [address] [place] [address] Operative Report 06/06/25 1412 MR#: [id number] Acct: [id number] Name: JULIA PLASCENCIA Rep #:[id number] : 1945 80 From: Von bhandari MD PCP: Dr. Cachorro Gonzalez MD Status:REG S DC Location: [place] [address] Operative Report (Standard) Operative Information Date of Procedure: 06/06/25 Pre-Operative Diagnosis: Need for vascular access for chemotherapy for lymphoma Post-Operative Diagnosis: Same Surgery/Procedure Performed: Ultrasound and fluoroscopy guided right chest port placement utilizingright IJ painter ordnance: No Type of Anesthesia: Local MAC RN Documented Start/Stop Times: Operation Date: 06/06/25 12:45 Case Time Into Pre-Op 06/06/25 10:53 Out of Pre-Op 06/06/25 13:35 Anesthesia Start 06/06/25 13:42 Into Room 06/06/25 13:42 Procedure Start 06/06/25 13:56 Procedure End 06/06/25 14:08 Anesthesia End 06/06/25 14:12 Out of Room 06/06/25 14:12 Procedure Start Time: 13:56 Procedure Stop Time: 14:12 Select all DRAINS/GRAFTS/IMPLANTS that apply: Implanted device Implanted device details: 8 [place] PowerPort Estimated Blood Loss: 5 Specimen collected: No Description of surgery: After obtaining informed consent patient was brought back to the operating room MAC anesthesia was induced and the right chest and neck were prepped in normal sterile fashion. Ultrasound was used to evaluate both IJs and the right IJ was selected. Next, using a needle, the right IJ was accessed papa guidewire was passed on into the superior vena cava under fluoroscopy guidance. A small incision was made over the puncture site and the dilator introducer was placed over the guidewire. Next this was capped and the pocket was made for the port. 1% lidocaine with epinephrine was injected in the proposed port site. An incision was made with scalpel. Electrocautery was used to make a pocket under the skin and subcutaneous tissue. Hemostasis was obtained. Next, the catheter was tunneled up to the neck incision site and placed through the introducer. The peel-away introducer was removed and theposition of the catheter was confirmed on fluoroscopy. Next, the catheter was trimmed and attached to the port with the locking device. Interrupted 2-0 Vicryl sutures were used to anchor the port to t he chest wall and then the port was placed inside the pocket. The pocket was then flushed with saline and the port irrigated with saline. There was good blood return and the port flushed easily. Next, heparinwas injected into the port. The skin was closed with subcutaneous interrupted 3-0 Vicryl sutures. A single 3-0 Vicryl sutures placed under the skin at the neck incision site. Steri-Strips were placed as well as op sites. Patient tolerated procedure well, was taken to PACU in stable condition. Chest x-ray will be obtained. Surgical Findings: None Complications Complications: No Admit VTE Documentation VTE Mechan Device Prophylaxis: SCD's 06/06/25 1413 Cosigner Signature (if applicable): CC: Dr. Von Velez MD; Dr. Cachorro Gonzalez MD~ Signed [facility]10-14-2025 Consult note Author [facility] Note Date/Time June 06, 2025 1 1:52am [facility] Medical Records Department [address] [place] [address] Pre-Anesthesia Evaluation 06/06/25 1146 MR#: [id number] Acct: [id number] Name: JULIA PLASCENCIA Rep #:[id number] : 1945 80 From: Adam Peter MD PCP: Dr. Cachorro Gonzalez MD Status:REG S DC Y Race: C Location: [place] [address] ASA Classification* ASA Classification ASA Classification: 2 Assessment & Plan Anesthesia* Anesthesia Assessment Anesthesia [...] anesthesia risk assessments. Anesthesia Type Anesthesia Type: MAC History Source History Obtained from:: Patient and Chart Anesthesia Focused Assessment* Temperature: 97.8 F Pulse Rate: 81 Blood Pressure: 128/70 Respiratory Rate: 16 Pulse Ox: 100 Oxygen Delivery Method: Room Air Airway Assessment Mouth opens: >3 cm Mallampati Score: III Teeth Condition: Partial (Patient has an upper partial. It is fairly secure. He will stay in.) Neck Range of motion (ROM): Limited ROM (Slight Decrease) Labs Anesthesia Preop lab: CBC WBC, (4.4-11.0) 7.1 K/mm3 05/11/25, 11:14 RBC, (4.2-5.4) 4.40 M/mm3 05/11/25, 11:14 Hgb, (12.0-15.0) 12.1 g/dL 05/11/25, 11:14 Hct, (37-47) 36.9 % L 05/11/25, 11:14 Plt Count, (150-450) 248 K/mm3 05/11/25, 11:14 CHEMISTRY Potassium, (3.3-5.1) 4.2 mmol/L 05/11/25, 11:14 Sodium, (133-145) 139 mmol/L 05/11/25, 11:14 BUN, (4-19) 10 mg/dL 05/11/25, 11:14 Creatinine, (0.70-1.20) 0.53 mg/dL L 05/11/25, 11:14 Glucose, (70-99) 75 mg/dL 05/11/25, 11:14 POC Glucose, (70-110) 162 mg/dL H 10/28/19, 07:56 TSH, (0.300-4.200) 1.930 uIU/mL 02/23/25, 08:12 COAG Pre-Assessment Diagnosis/Proposed Procedure Planned Operative Procedure(s): RIGHT POSSIBLE LEFT IJ PORT INSERTION Anesthesia History Anesthesia History - shift nurse manager: Anesthesia History - shift nurse manager Hx Hospitalization No 05/31/25 14:40 Any Problems With Anesthesia No 05/31/25 14:40 Cholinesterase deficiency No 05/31/25 14:40 You/Your Family Experience No 05/31/25 14:40 fever (hyperthermia) with Relationship Recent Exposure to Contagious No 06/06/25 11:13 Disease Does patient have nerve No 05/31/25 14:40 stimulator Patient instructed to have device shut off --Does patient have Pacemaker No 06/06/25 11:13 or ICD? When Was Last Pacemaker Check QUESTION #4 FULL TEXT: You/Your Family Experience fever (hyperthermia) with Anesthesia Last Oral Intake Last Oral intake: Last Oral Intake NPO since 19:00 06/06/25 11:13 Meds taken in AM with sips of No 06/06/25 11:13 water? Meds patient instructed to take am of surgery PONV PONV - shift nurse manager: PONV - shift nurse manager Female Yes 05/31/25 14:40 HX of Motion Sickness No 05/31/25 14:40 HX of N/V After Surgery No 05/31/25 14:40 Non-Smoker Yes 05/31/25 14:40 Duration of Surgery greater No 05/31/25 14:40 than 60 minutes Number of Risk Factors 2 05/31/25 14:40 PONV Score Moderate Risk 05/31/25 14:40 Height & Weight Height & Weight: Anesthesia: Height & Weight Height 5 ft 5 in 06/06/25 11:13 Weight: 71.9 kg 06/06/25 11:13 Body Mass Index (BMI) 26.4 06/06/25 11:13 Respiratory Assessment Respiratory Assessment - shift nurse manager: Respiratory Tract Infection Hx - shift nurse manager Hx Respiratory Tract Infection No 05/31/25 14:40 STOP Sleep Apnea STOP Sleep Apnea - shift nurse manager: STOP Sleep Apnea - shift nurse manager Hx Hypertension No: hypotension 05/31/25 14:40 Hx Sleep Apnea No 05/31/25 14:40 CPAP BIPAP Do you snore loudly (louder No 05/31/25 14:40 than talking or can be heard Do you often feel tired/ No 05/31/25 14:40 fatigued/ sleepy during daytime? Has anyone observed you stop No 05/31/25 14:40 breathing during sleep? STOP Results Negative 05/31/25 14:40 QUESTION #5 FULL TEXT : Do you snore loudly (louder than talking or can be heard through closed doors)? 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 Specify any problems Hx of Preganancy in last 3 N/A 05/31/25 14:40 Months Nurse Filling Out Transfusion NBUCHER 05/31/25 14:40 & Questions: Date: 05/31/25 05/31/25 14:40 Time: 14:42 05/31/25 14:40 Patient unable to answer at this time (ie. confused, unrespo /Reproduction History /Reproductive History - shift nurse manager: /Reproductive Hx- shift nurse manager Hx Now No 05/31/25 14:40 Gestational Age (in weeks): EDC: Hx Hx Para Hx Section SAB No 05/31/25 14:40 Active Medications Active Medications: Current Medications Generic Name Dose Route Start Last Admin Trade Name Freq PRN Reason Stop Dose Admin Cefazolin Sodium 2 gm/ Sodium 110 mls @ 200 mls/hr 06/06/25 12:05 Chloride IV 06/06/25 12:37 INTRAOP ONE Lactated Ringer's 1,000 mls @ 15 mls/hr 06/06/25 11:00 06/06/25 11:24 IV 15 mls/hr .Q48H CHITRA Administration PFSH Medical History Encounter for education DLBCL (diffuse large B cell lymphoma) Hypothyroidism Wears partial dentures Wears glasses Post-menopausal Non-smoker History of echocardiogram History of stress test History of irregular heartbeat Foot drop, right Anemia Carpal tunnel syndrome Thyroid disease Fatigue Dysuria Hyperlipemia Diabetes Home Medications ?Medication ?Instructions ?Recorded ?Last Taken ?Type calcium carbonate (Calcium 500) 500 mg PO DAILY Unknown History folic acid 0.8 mg capsule 800 mcg PO QDAY 10/13/17 Unk nown History levothyroxine 75 mcg [...] mg PO DAILY heart heal th 10/24/19 06/04/25 History release ferrous sulfate 325 mg (65 mg 325 mg PO TID 01/09/25 0 01/31/25 History iron) tablet (Feosol) Held on 05/31/25. Instructions: PATIENT HOLDING UNTIL AFTER TREATMENT gabapentin 300 mg capsule 300 mg PO QHS PRN pain 05/08 Unknown History Held on 05/31/25. Instructions: HOLDING UNTIL AFTER TREATMENT glimepiride 1 mg tablet 1 mg PO QDAY 05/08/25 Unknow n History acyclovir 400 mg tablet 400 mg PO BID #60 tabs 05/25 Unknown Rx allopurinol 300 mg tablet 300 mg PO .COMPLEX #10 tabs 05/25/25 Unknown Rx lidocaine-prilocaine 2.5 %-2.5 % 1 applic topical ONCE PRN port 05/25/25 Unknown Rx topical cream access 30 days #30 grams ondansetron 8 mg disintegrating 8 mg PO Q8H PRN nausea and 05/25/25 Unknown Rx tablet vomiting #30 tabs prednisone 50 mg tablet 100 mg (2 x 50 mg) PO .COMPL EX #60 05/25/25 Unknown Rx tabs prochlorperazine maleate 10 mg 10 mg PO Q6H PRN nausea and 05/25/25 Unknown Rx tablet vomiting #30 tabs Allergy/AdvReac Type Severity Reaction Status Date / Time No Known Allergies Allergy Verified 06/06/25 11:08 Family History Mother Uterine cancer Sister Heart disease Thyroid disorder Surgical History History of cardiac catheterization Hx [...] and no additional complaints, except as documented. 06/06/25 1152 <Electronically signed by Adam retana MD> Date _ Adam Peter MD Cosign Signature: Date CC: ~ Signed [facility] Work Phone: [phone]) 170-849010-14-2025 [facility] Medical Records Department [address] [place] [id number] History Physical Exam 06/06/25 1252 MR#: [id number] Acct: [id number] Name: JULIA PLASCENCIA Rep #: [id number] : 1945 80 From: Von Velez MD PCP: Dr. Cachorro Gonzalez MD Status:[facility] Location: [place] [address] History and Physical Date of Admission: 06/06/25 Intake Vital Signs 05/25/2509:18 05/29/2508:44 Height 5 ft 5 in 5 ft 5 in Weight: 160 lb 159 lb BMI 26.6 26.4 BP 146/75 H 108/66 Blood Pressure Location Lt brachial Rt brachial Position Sitting Sitting Respiration 18 17 Pulse 81 74 Pulse Source Monitor Monitor Temp 98.2 F Pulse Oximetry (%) 99 98 Oxygen Delivery Method room air room air Intake Visit Reasons: DISCUSS PORT PLACEMENT Chief Complaint: discuss port placement Is patient in pain?: No Allergies No Known Allergies Allergy (Verified 05/29/25 08:45) Medications ???Medication ???Instructions ???Recorded ???Confirmed ???Type calcium carbonate (Calcium 500) 500 mg PO DAILY 10/13/17 05/29/25 History folic acid 0.8 mg capsule 800 mcg PO QDAY 10/13/17 05/29/25 History levothyroxine 75 mcg capsule 75 mcg PO DAILY 10/13/17 05/29/25 History metformin 1,000 mg tablet 1,000 mg PO BID 10/13/17 05/29/25 History multivitamin 1 tab PO QAM 10/13/17 05/29/25 History magnesium oxide 400 mg (241.3 mg 400 mg PO DAILY 10/16/17 05/29/25 History magnesium) tablet aspirin 81 mg tablet,delayed 81 mg PO DAILY heart health 10/24/19 05/29/25 Hist ory release ferrous sulfate 325 mg (65 mg 325 mg PO TID 01/09/25 05/29/25 History iron) tablet (Feosol) gabapentin 300 mg capsule 300 mg PO QHS PRN 05/08/25 05/29/25 History glimepiride 1 mg tablet 1 mg PO QDAY 05/08/25 05/29/25 History acyclovir 400 mg tablet 400 mg PO BID #60 tabs 05/25/25 05/29/25 Rx allopurinol 300 mg tablet 300 mg PO .COMPLEX #10 tabs 05/25/25 05/29/25 Rx lidocaine-prilocaine 2.5 %-2.5 % 1 applic topical ONCE PRN port 05/25/25 05/29/25 R x topical cream access 30 days #30 grams ondansetron 8 mg disintegrating 8 mg PO Q8H PRN nausea and 05/25/25 05/29/25 Rx tablet vomiting #30 tabs prednisone 50 mg tablet 100 mg (2 x 50 mg) PO .COMPLEX #60 05/25/25 Rx tabs prochlorperazine maleate 10 mg 10 mg PO Q6H PRN nausea and 05/25/25 05/29/25 Rx tablet vomiting #30 tabs Have you fallen in the past year?: No [facility] Medical History (Updated 05/29/25 @ 08:44 by Gregory Hernandez) Encounter for education DLBCL (diffuse large B cell lymphoma) Hypothyroidism Wears partial dentures Wears glasses Post-menopausal Non-smoker [...] HPI HPI: Patient is an 80-year-old female 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 I discussed placing a chest port with her at today's visit. ROS General General: Yes weight change and fatigue; No appetite, colon cancer, breast cancer or weakness HEENT HEENT: No difficulty swallowing, eye injury, eye surgery, swollen glands or hoarseness Endo Endocrine: Yes thyroid disease and diabetes mellitus; No thyroid cancer, Hair loss, heat intolerance or cold intolerance Skin Skin: No rash or changing moles Musc Musculoskeletal: No back problems, arthritis, rheumatoid [...] Jasson Hematologic: No blood thinners, No blood disorders (more content not included)...[facility]10-14-2025 Consult note [facility] Medical Records Department [address] [place] [address] Pre-Anesthesia Evaluation 06/06/25 1146 MR#: [id number] Acct: [id number] Name: JULIA PLASCENCIA Rep #:[id number] : 1945 80 From: Adam Peter MD PCP: Dr. Cachorro Gonzalez MD Status:REG S DC Y Race: C Location: [place] [address] ASA Classification* ASA Classification ASA Classification: 2 Assessment & Plan Anesthesia* Anesthesia Assessment Anesthesia [...] anesthesia risk assessments. Anesthesia Type Anesthesia Type: MAC History Source History Obtained from:: Patient and Chart Anesthesia Focused Assessment* Temperature: 97.8 F Pulse Rate: 81 Blood Pressure: 128/70 Respiratory Rate: 16 Pulse Ox: 100 Oxygen Delivery Method: Room Air Airway Assessment Mouth opens: >3 cm Mallampati Score: III Teeth Condition: Partial (Patient has an upper partial. It is fairly secure. He will stay in.) Neck Range of motion (ROM): Limited ROM (Slight Decrease) Labs Anesthesia Preop lab: CBC WBC, (4.4-11.0) 7.1 K/mm3 05/11/25, 11:14 RBC, (4.2-5.4) 4.40 M/mm3 05/11/25, 11:14 Hgb, (12.0-15.0) 12.1 g/dL 05/11/25, 11:14 Hct, (37-47) 36.9 % L 05/11/25, 11:14 Plt Count, (150-450) 248 K/mm3 05/11/25, 11:14 CHEMISTRY Potassium, (3.3-5.1) 4.2 mmol/L 05/11/25, 11:14 Sodium, (133-145) 139 mmol/L 05/11/25, 11:14 BUN, (4-19) 10 mg/dL 05/11/25, 11:14 Creatinine, (0.70-1.20) 0.53 mg/dL L 05/11/25, 11:14 Glucose, (70-99) 75 mg/dL 05/11/25, 11:14 POC Glucose, (70-110) 162 mg/dL H 10/28/19, 07:56 TSH, (0.300-4.200) 1.930 uIU/mL 02/23/25, 08:12 COAG Pre-Assessment Diagnosis/Proposed Procedure Planned Operative Procedure(s): RIGHT POSSIBLE LEFT IJ PORT INSERTION Anesthesia History Anesthesia History - shift nurse manager: Anesthesia History - shift nurse manager Hx Hospitalization No 05/31/25 14:40 Any Problems With Anesthesia No 05/31/25 14:40 Cholinesterase deficiency No 05/31/25 14:40 You/Your Family Experience No 05/31/25 14:40 fever (hyperthermia) with Relationship Recent Exposure to Contagious No 06/06/25 11:13 Disease Does patient have nerve No 05/31/25 14:40 stimulator Patient instructed to have device shut off --Does patient have Pacemaker No 06/06/25 11:13 or ICD? When Was Last Pacemaker Check QUESTION #4 FULL TEXT: You/Your Family Experience fever (hyperthermia) with Anesthesia Last Oral Intake Last Oral intake: Last Oral Intake NPO since 19:00 06/06/25 11:13 Meds taken in AM with sips of No 06/06/25 11:13 water? Meds patient instructed to take am of surgery PONV PONV - shift nurse manager: PONV - shift nurse manager Female Yes 05/31/25 14:40 HX of Motion Sickness No 05/31/25 14:40 HX of N/V After Surgery No 05/31/25 14:40 Non-Smoker Yes 05/31/25 14:40 Duration of Surgery greater No 05/31/25 14:40 than 60 minutes Number of Risk Factors 2 05/31/25 14:40 PONV Score Moderate Risk 05/31/25 14:40 Height & Weight Height & Weight: Anesthesia: Height & Weight Height 5 ft 5 in 06/06/25 11:13 Weight: 71.9 kg 06/06/25 11:13 Body Mass Index (BMI) 26.4 06/06/25 11:13 Respiratory Assessment Respiratory Assessment - shift nurse manager: Respiratory Tract Infection Hx - shift nurse manager Hx Respiratory Tract Infection No 05/31/25 14:40 STOP Sleep Apnea STOP Sleep Apnea - shift nurse manager: STOP Sleep Apnea - shift nurse manager Hx Hypertension No: hypotension 05/31/25 14:40 Hx Sleep Apnea No 05/31/25 14:40 CPAP BIPAP Do you snore loudly (louder No 05/31/25 14:40 than talking or can be heard Do you often feel tired/ No 05/31/25 14:40 fatigued/ sleepy during daytime? Has anyone observed you stop No 05/31/25 14:40 breathing during sleep? STOP Results Negative 05/31/25 14:40 QUESTION #5 FULL TEXT : Do you snore loudly (louder than talking or can be heard through closeddoors)? 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 Specify any problems Hx of Preganancy in last 3 N/A 05/31/25 14:40 Months Nurse Filling Out Transfusion NBUCHER 05/31/25 14:40 & Questions: Date: 05/31/25 05/31/25 14:40 Time: 14:42 05/31/25 14:40 Patient unable to answer at this time (ie. confused, unrespo /Reproduction History /Reproductive History - shift nurse manager: /Reproductive Hx- shift nurse manager Hx Now No 05/31/25 14:40 Gestational Age (in weeks): EDC: Hx Hx Para Hx Section SAB No 05/31/25 14:40 Active Medications Active Medications: Current Medications Generic Name Dose Route Start Last Admin Trade Name Freq PRN Reason Stop Dose Admin Cefazolin Sodium 2 gm/ Sodium 110 mls @ 200 mls/hr 06/06/25 12:05 Chloride IV 06/06/25 12:37 INTRAOP ONE Lactated Ringer's 1,000 mls @ 15 mls/hr 06/06/25 11:00 06/06/25 11:24 IV 15 mls/hr .Q48H CHITRA Administration PFSH Medical History Encounter for education DLBCL (diffuse large B cell lymphoma) Hypothyroidism Wears partial dentures Wears glasses Post-menopausal Non-smoker History of echocardiogram History of stress test History of irregular heartbeat Foot drop, right Anemia Carpal tunnel syndrome Thyroid disease Fatigue Dysuria Hyperlipemia Diabetes Home Medications ?Medication ?Instructions ?Recorded ?Last Taken ?Type calcium carbonate (Calcium 500) 500 mg PO DAILY Unknown History folic acid 0.8 mg capsule 800 mcg PO QDAY 10/13/17 Unk nown History levothyroxine 75 mcg [...] mg PO DAILY heart heal th 10/24/19 06/04/25 History release ferrous sulfate 325 mg (65 mg 325 mg PO TID 01/09/25 0 01/31/25 History iron) tablet (Feosol) Held on 05/31/25. Instructions: PATIENT HOLDING UNTIL AFTER TREATMENT gabapentin 300 mg capsule 300 mg PO QHS PRN pain 05/08 Unknown History Held on 05/31/25. Instructions: HOLDING UNTIL AFTER TREATMENT glimepiride 1 mg tablet 1 mg PO QDAY 05/08/25 Unknow n History acyclovir 400 mg tablet 400 mg PO BID #60 tabs 05/25 Unknown Rx allopurinol 300 mg tablet 300 mg PO .COMPLEX #10 tabs 05/25/25 Unknown Rx lidocaine-prilocaine 2.5 %-2.5 % 1 applic topical ONCE PRN port 05/25/25 Unknown Rx topical cream access 30 days #30 grams ondansetron 8 mg disintegrating 8 mg PO Q8H PRN nausea and 05/25/25 Unknown Rx tablet vomiting #30 tabs prednisone 50 mg tablet 100 mg (2 x 50 mg) PO .COMPL EX #60 05/25/25 Unknown Rx tabs prochlorperazine maleate 10 mg 10 mg PO Q6H PRN nausea and 05/25/25 Unknown Rx tablet vomiting #30 tabs Allergy/AdvReac Type Severity Reaction Status Date / Time No Known Allergies Allergy Verified 06/06/25 11:08 Family History Mother Uterine cancer Sister Heart disease Thyroid disorder Surgical History History of cardiac catheterization Hx [...] and no additional complaints, except as documented. 06/06/25 1152 mazin PALACIOS> Date _ Adam [facility] Signature: Date CC: ~ Signed [facility]10-06-2025 [facility] [address] [place] [address] OFFICE VISIT Date of Service: 05/29/25 MR#: [id number] Acct: [id number] Name: JULIA PLASCENCIA Rep #: [id number] : 1945 Provider: Dr. Maggi Velez MD Age/Sex: 80/F Location: [facility] Status: Signed Intake Vital Signs 05/25/25 09:18 05/29/25 08:44 Height 5 ft 5 in 5 ft 5 in Weight: 160 lb 159 lb BMI 26.6 26.4 BP 146/75 H 108/66 Blood Pressure Location Lt brachial Rt brachial Position Sitting Sitting Respiration 18 17 Pulse 81 74 Pulse Source Monitor Monitor Temp 98.2 F Pulse Oximetry (%) 99 98 Oxygen Delivery Method room air room air Intake Visit Reasons: DISCUSS PORT PLACEMENT Chief Complaint: discuss port placement Is patient in pain?: No Allergies No Known Allergies Allergy (Verified 05/29/25 08:45) Medications ?Medication ?Instructions ?Recorded ?Confirmed ?Type calcium carbonate (Calcium 500) 500 mg PO DAILY 05/29/25 History folic acid 0.8 mg capsule 800 mcg PO QDAY 10/13/1702/15 History levothyroxine 75 mcg capsule 75 mcg PO DAILY 10/13/17 05/29/25 History metformin 1,000 mg tablet 1,000 mg PO BID 10/13/1702/15 History multivitamin 1 tab PO QAM 10/13/17 History magnesium oxide 400 mg (241.3 mg 400 mg PO DAILY 10/1605/29/25 History magnesium) tablet aspirin 81 mg tablet,delayed 81 mg PO DAILY heart heal th 10/24/19 05/29/25 Histo ry release ferrous sulfate 325 mg (65 mg 325 mg PO TID 01/09/25 1 History iron) tablet (Feosol) gabapentin 300 mg capsule 300 mg PO QHS PRN 05/08/25 1 History glimepiride 1 mg tablet 1 mg PO QDAY 05/08/25 History acyclovir 400 mg tablet 400 mg PO BID #60 tabs 05/2505/29/25 Rx allopurinol 300 mg tablet 300 mg PO .COMPLEX #10 tabs 05/25/25 05/29/25 Rx lidocaine-prilocaine 2.5 %-2.5 % 1 applic topical ONCE PRN port 05/25/25 05/29/25 Rx topical cream access 30 days #30 grams ondansetron 8 mg disintegrating 8 mg PO Q8H PRN nausea and 05/25/25 05/29/25 Rx tablet vomiting #30 tabs prednisone 50 mg tablet 100 mg (2 x 50 mg) PO .COMPL EX #60 05/25/25 05/29/25 Rx tabs prochlorperazine maleate 10 mg 10 mg PO Q6H PRN nausea and 05/25/25 05/29/25 Rx tablet vomiting #30 tabs Have you fallen in the past year?: No [facility] Medical History (Updated 05/29/25 @ 08:44 by Gregory Hernandez) Encounter for education DLBCL (diffuse large B cell lymphoma) Hypothyroidism Wears partial dentures Wears glasses Post-menopausal Non-smoker [...] HPI HPI: Patient is an 80-year-old female 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 I discussedplacing a chest port with her at today's visit. ROS General General: Yes weight change and fatigue; No appetite, colon cancer, breast cancer or weakness HEENT HEENT: No difficulty swallowing, eye injury, eye surgery, swollen glands or hoarseness Endo Endocrine: Yes thyroid disease and diabetes mellitus; No thyroid cancer, Hair loss, heat intolerance or cold intolerance Skin Skin: No rash or changing moles Musc Musculoskeletal: No back problems, arthritis, rheumatoid [...] General: cooperative Orientation: alert and oriented x3 [facility] Head: normal to inspection Neck Neck: normal [...] Assessment and Plan Assessment and Plan (1) Encounter for insertion of venous access port: Status: Acute Plan: I discussed placing a right chest port on the patient. I discussed port placement as well as the risks of the procedure such as bleeding, infection, pneumothorax, line infection. Patient understands the risks and is willing to proceed. Von Velez MD Pager: [facility] [address] [place] [address], [address] [place] [phone] Office: Coding Level of Care Code Off vis,est,level 3 Diagnoses Encounter for insertion of venous access port Z45.2 Clinical Quality Measures Falls Risk Screening/Assistive Devices Have you fallen in the past year?: No 05/29/25 0928 john PALACIOS> Date _ Von Velez MD [facility] Signature: Date (if applicable) CC: ~ [facility]09-30-2025 [facility] [address] [address] OFFICE VISIT Date of Service: 05/23/25 1436 MR#: [id number] Acct: [id number] Name: JULIA PLASCENCIA Rep #: [id number] : 1945 From: Ratna nation MD Age/Sex: 80/F Location: [facility] Status: Signed HPI Subjective Date of Service 05/23/25 Chief Complaint lymphoma History of Present Illness 80-year-old female who felt a painless lump in the left breast in February 2025 and loss 20 pounds of weight despite a preserved appetite. April 04, 2025 diagnostic mammogram: IMPRESSION: Abnormal intramammary lymph node in the left breast at 2 o'clock 9 cm from the nipple. April 04, 2025 breast ultrasound: IMPRESSION: Abnormal intramammary lymph node in the left breast at 2 o'clock 9 cm from the nipple. April 10, 2025 Left breast, mass/lymph node, breast, core biopsy: - Lymphoid tissue negative for carcinoma ? see note and Comment. - Mature adipose tissue. - No breast epithelium observed. Note: This case will be sent to [facility] for formal consultation with the hematopathology division of the Pathology Department, to rule out a lymphoproliferative disorder. A separate report from [facility] will follow. IHCs were obtained and will be reported by the individual pension consultant pathologist. COMMENT: A portion of the tissue was sent in RPMI for flow cytometry to [facility]. The flow cytometry showed ?no immunophenotypic evidence of an abnormal population of B lymphocytes or T lymphocytes. Few B-cells detected?. Diagnosis provided by Dr Ashlyn Baeza ([facility] hematopathology division) This addendum is added to incorporate an outside pathology consultation report. The case was examined at [facility] by Dr. Monte (#[id number]) and the following diagnosis was rendered. A. 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 Diagnosis Comment: As described in detail in the synoptic report below, the assessment is somewhat challenging due to the very scant nature of the specimen. However, overall, there is convincing evidence of a neoplastic large B-cell infiltrate expressing germinal center associated markers (BCL6, CD10) and showing a diffuse infiltrative pattern not associated with follicular dendritic cell meshworks. Thefindings are consistent with an aggressive B-cell lymphoma. FISH studies have been ordered, and the results will be reported in an addendum. Addendum: No rearrangements of BCL2, BCL6 or MYC genes are detected by FISH. 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 May 16, 2025 PET/CT initial staging: IMPRESSION: 1. Multiple enlarged hypermetabolic mediastinal, right axillary, retroperitoneal, mesenteric, and left pelvic lymph nodes consistent with lymphoma. There is a hypermetabolic nodule in the spleen consistent with lymphoma. [facility] Medical History DLBCL (diffuse large B cell lymphoma) Hypothyroidism Wears partial dentures Wears glasses Post-menopausal Non-smoker [...] 3-4 times per week seatbelt use: always ROS Constitutional Constitutional: Reports fatigue, weight loss and other Details: 20 pounds weightloss in the past 6 months despite preserved appetite ; Denies anorexia, fever(s) or night sweats Eyes Eyes: Reports systems reviewed and no addt'l complaints, except as documented ENT HEENT: Reports systems reviewed and no addt'l complaints, except as documented; Denies mouth lesions Cardiovascular Cardiovascular: Reports systems reviewed and no addt'l complaints, except as documented; Denies chest pain with activity or edema Respiratory/Chest Respiratory/Chest: Reports systems reviewed and no addt'l complaints, except as documented; Denies cough or dyspnea Gastrointestinal Gastrointestinal: Reports systems reviewed and no addt'l complaints, except as documented; Denies abdominal pain, change in bowel habits, hematochezia or melena Genitourinary Genitourinary: Reports systems reviewed and no addt'l complaints, except as documented Musculoskeletal Musculoskeletal: Reports systems reviewed and no addt'l complaints, except as documented; Denies back pain Integumentary Integumentary: Reports systems reviewed and no addt'l complaints, except as documented; Denies new lesions Neurologic Neurologic: Reports systems reviewed and no addt'l complaints, except as documented and paresthesias RLE and LLE; Denies focal weakness Psychiatric Psychiatric: Reports systems reviewed and no addt'l complaints, except as documented Endocrine Endocrinology: Reports systems reviewed and no addt'l complaints, except as documented Hematologic/Lymphatic Hematologic/Lymphatic: Reports systems reviewed and no addt'l complaints, exceptas documented and anemia; Denies lymphadenopathy Allergic/Immunologic Allergic/Immunologic: Reports systems reviewed and no addt'l complaints, except as documented Intake Vital Signs 05/11/25 10:17 05/23/25 14:37 05/23/25 14:38 Height 5 ft 5 in 5 ft 5 in 5 ft 5 in Weight: 73.142 kg 72.631 kg BMI 26.8 26.6 BP 112/68 125/74 H Blood Pressure Location Lt brachial Lt brachial Position Sitting Sitting Respiration 18 18 Pulse 74 78 Pulse Source Monitor Monitor Temp 97.9 F 97.5 F L Temperature Source Temporal Artery Temporal Artery Pulse Oximetry (%) 98 97 Oxygen Delivery Method room air room air Intake Is patient in pain?: No Allergies No Known Allergies Allergy (Verified 05/23/25 14:38) Medications ?Medication ?Instructions ?Recorded ?Confirmed ?Type calcium carbonate (Calcium 500) 500 mg PO DAILY 05/23/25 History folic acid 0.8 mg capsule 800 mcg PO QDAY 10/13/17 History levothyroxine 75 mcg capsule 75 mcg PO DAILY 10/13/17 05/23/25 History metformin 1,000 mg tablet 1,000 mg PO BID 10/13/17 History multivitamin 1 tab PO QAM 10/13/17 History magnesium oxide 400 mg (241.3 mg 400 mg PO DAILY 10/1605/23/25 History magnesium) tablet aspirin 81 mg tablet,delayed 81 mg PO DAILY heart heal th 10/24/19 05/23/25 History release ferrous sulfate 325 mg (65 mg 325 mg PO TID 01/09/25 0 05/23/25 History iron) tablet (Feosol) gabapentin 300 mg capsule 300 mg PO QHS PRN 05/08/25 0 05/23/25 History glimepiride 1 mg tablet 1 mg PO QDAY 05/08/25 History Have you fallen in the past year?: No Central Venous Access Central Venous Access: No CBC, CMP, LDH May 11, 2025 reviewed in EMR. Hepatitis B and C serologies nonreactive I personally reviewed patient's PET/CT images and concur with reported finding Exam Physical Exam Narrative ECOG 1 Const alert and oriented x3 General Appearance: frail Coding Level of Care Code Off vis,est,level 5 Exam Problem Focused Diagnoses Diffuse large B-cell lymphoma of lymph nodes of multiple regions C83.38 Lymphoma site: multiple regions Assessment and Plan Assessment and Plan (1) DLBCL (diffuse large B cell lymphoma): Status: Acute Qualifiers: Lymphoma site: multiple regions Qualified Code(s): 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, lymph nodes of multiple sites Plan 80-year-old female with stage IVB diffuse large B-cell lymphoma presenting with the patient palpated left breast intramammary enlarged lymph node and PET/CT confirms widespread disease above and below the diaphragm.. Chronic comorbid conditions: Diabetes, grade 1 peripheral neuropathy, aortic valve disease, anemia,history of supraventricular tachycardia, hypothyroidism on replacement therapy, dyslipidemia, status post gastric bypass. Plan: Based on NCCN guidelines advise: 1. Systemic chemoimmunotherapy R-CHOP 6 cycles with intent to cure. Interim restaging with PET/CT after 3 cycles. 2. Tumor lysis prophylaxis with cycle 1 include IV fluids days 1 through 3 and allopurinol day 0?9. 3. She had a cardiac echo in February 2025 shows satisfactory cardiac ejection fraction. 4. Central venous access. 5. Anticancer teaching session and insurance authorization for therapy. Follow-up after above. Patient was seen with her . She may elect to receive therapy in [place] where she can have further support from her 2 sons. Ratna Bell MD Rv Servicer, [facility] Divisions of Medical Oncology & Hematology Department of Internal Medicine [place] [id number] This note was generated using a voice recognition system software. Although itwas reviewed by the author prior to finalization, it may still contain incorrectwords, spelling, and punctuation that were not noted when reviewing prior to saving. If a clinically significant typo or inaccurately typed phrase is noted, please notify the author. Clinical Quality Measures Falls Risk Screening/Assistive Devices Have you fallen in the past year?: No 05/23/25 [address] PALACIOS> Date _ Ratna Bell MD Cosigner Signature: Date (if applicable) CC: Dr. Von Velez MD; Dr. Cachorro Gonzalez MD ~ [facility]09-18-2025 [facility] [place] [address] OFFICE VISIT Date of Service: 05/11/25 1012 MR#: [id number] Acct: [id number] Name: JULIA PLASCENCIA Rep #: [id number] : 1945 From: Ratna nation MD Age/Sex: 80/F Location: [facility] Status: Signed HPI Subjective Date of Service 05/11/25 Chief Complaint left breast mass, lymphoma History of Present Illness 80-year-old female who felt a painless lump in the left breast in February 2025 and loss 20 pounds of weight despite a preserved appetite. April 04, 2025 diagnostic mammogram: IMPRESSION: Abnormal intramammary lymph node in the left breast at 2 o'clock 9 cm from the nipple. April 04, 2025 breast ultrasound: IMPRESSION: Abnormal intramammary lymph node in the left breast at 2 o'clock 9 cm from the nipple. April 10, 2025 Left breast, mass/lymph node, breast, core biopsy: - Lymphoid tissue negative for carcinoma ? see note and Comment. - Mature adipose tissue. - No breast epithelium observed. Note: This case will be sent to [facility] for formal consultation with the hematopathology division of the Pathology Department, to rule out a lymphoproliferative disorder. A separate report from [facility] will follow. IHCs were obtained and will be reported by the individual pension consultant pathologist. COMMENT: A portion of the tissue was sent in RPMI for flow cytometry to [facility]. The flow cytometry showed ?no immunophenotypic evidence of an abnormal population of B lymphocytes or T lymphocytes. Few B-cells detected?. Diagnosis provided by Dr Ashlyn Baeza ([facility] hematopathology division) This addendum is added to incorporate an outside pathology consultation report. The case was examined at [facility] by Dr. Monte (#[id number]) and the following diagnosis was rendered. A. 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 Diagnosis Comment: As described in detail in the synoptic report below, the assessment is somewhat challenging due to the very scant nature of the specimen. However, overall, there is convincing evidence of a neoplastic large B-cell infiltrate expressing germinal center associated markers (BCL6, CD10) and showing a diffuse infiltrative pattern not associated with follicular dendritic cell meshworks. Thefindings are consistent with an aggressive B-cell lymphoma. FISH studies have been ordered, and the results will be reported in an addendum. Addendum: No rearrangements of BCL2, BCL6 or MYC genes are detected by FISH. 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 [facility] Medical History (Updated 05/11/25 @ 10:[address] Ratna Bell MD) DLBCL (diffuse large B cell lymphoma) Hypothyroidism Wears partial dentures Wears glasses Post-menopausal Non-smoker [...] 3-4 times per week seatbelt use: always ROS Constitutional Constitutional: Reports fatigue and weight loss; Denies anorexia, fever(s) or night sweats Eyes Eyes: Reports systems reviewed and no addt'l complaints, except as documented ENT HEENT: Reports systems reviewed and no addt'l complaints, except as documented; Denies mouth lesions Cardiovascular Cardiovascular: Reports systems reviewed and no addt'l complaints, except as documented; Denies chest pain with activity or edema Respiratory/Chest Respiratory/Chest: Reports systems reviewed and no addt'l complaints, except as documented; Denies cough or dyspnea Gastrointestinal Gastrointestinal: Reports systems reviewed and no addt'l complaints, except as documented; Denies abdominal pain, change in bowel habits, hematochezia or melena Genitourinary Genitourinary: Reports systems reviewed and no addt'l complaints, except as documented Musculoskeletal Musculoskeletal: Reports systems reviewed and no addt'l complaints, except as documented; Denies back pain Integumentary Integumentary: Reports systems reviewed and no addt'l complaints, except as documented; Denies new lesions Neurologic Neurologic: Reports systems reviewed and no addt'l complaints, except as documented and paresthesias RLE and LLE; Denies focal weakness Psychiatric Psychiatric: Reports systems reviewed and no addt'l complaints, except as documented Endocrine Endocrinology: Reports systems reviewed and no addt'l complaints, except as documented Hematologic/Lymphatic Hematologic/Lymphatic: Reports systems reviewed and no addt'l complaints, exceptas documented and anemia; Denies lymphadenopathy Allergic/Immunologic Allergic/Immunologic: Reports systems reviewed and no addt'l complaints, except as documented Intake Vital Signs 04/10/25 07:55 05/08/25 08:53 05/11/25 10:14 05/11/25 10:17 Height 5 ft 5 in 5 ft 5 in 5 ft 5 in 5 ft 5 in Weight: 73.482 kg 72.575 kg 73.142 kg BMI 26.9 26.6 26.8 BP 131/76 H 114/66 112/68 Blood Pressure Location Rt brachial Lt brachial Lt brachial Position Sitting Sitting Sitting Respiration 16 18 18 Pulse 80 74 Pulse Source Monitor Monitor Temp 97.9 F Temperature Source Temporal Artery Pulse Oximetry (%) 98 Oxygen Delivery Method room air Intake Is patient in pain?: No Allergies No Known Allergies Allergy (Verified 05/11/25 10:15) Medications ?Medication ?Instructions ?Recorded ?Confirmed ?Type calcium carbonate (Calcium 500) 500 mg PO DAILY 05/11/25 History folic acid 0.8 mg capsule 800 mcg PO QDAY 10/13/17 History levothyroxine 75 mcg capsule 75 mcg PO DAILY 10/13/17 05/11/25 History metformin 1,000 mg tablet 1,000 mg PO BID 10/13/17 History multivitamin 1 tab PO QAM 10/13/17 History magnesium oxide 400 mg (241.3 mg 400 mg PO DAILY 10/1605/11/25 History magnesium) tablet aspirin 81 mg tablet,delayed 81 mg PO DAILY heart heal th 10/24/19 05/11/25 History release ferrous sulfate 325 mg (65 mg 325 mg PO TID 01/09/25 0 05/11/25 History iron) tablet (Feosol) gabapentin 300 mg capsule 300 mg PO QHS PRN 05/08/25 0 05/11/25 History glimepiride 1 mg tablet 1 mg PO QDAY 05/08/25 History Have you fallen in the past year?: No Central Venous Access Central Venous Access: No See under HPI See under HPI Exam Physical Exam Narrative ECOG 1 Const alert, oriented x3 and no apparent distress General Appearance: cooperative, comfortable and well kempt HEENT Face and Sinus: normal facial exam General Ear: hearing grossly impaired Eyes General Eye: normal appearance of both eyes Neck no lymphadenopathy and no JVD Lymph Lymphatic: no lymphadenopathy noted Resp clear to auscultation bilaterally Cardio regular rate and regular rhythm Jugular Venous Distention: Negative for JVD Heart Sounds: murmur systolic GI soft to palpation, non-tender and non-distended; Negative for hepatosplenomegaly Back/Spine no thoracic nor lumbar tenderness Extremity no clubbing, cyanosis or edema Skin no rashes or lesions noted Neuro oriented x3, CN's II-XII intact bilaterally, moves all extremities and no focal motor deficits Coordination / Balance: [id number] test normal Speech: speech normal Gait (Neuro): normal gait Psych mental status grossly normal Coding Level of Care Code Off vis,new,level 5 Exam Problem Focused Diagnoses DLBCL (diffuse large B cell lymphoma) C83.30 Assessment and Plan Assessment and Plan (1) DLBCL (diffuse large B cell lymphoma): Status: Acute Orders: Orders CBC W/Diff, Automated Today C85.10 - Unspecified B-cell lymphoma, unspecified site, D50.9 - Iron deficiency anemia, unspecified Ferritin Today C85.10 - Unspecified B-cell lymphoma, unspecified site, D50.9 - Iron deficiency anemia, unspecified Iron+Iron Binding Capacity Today C85.10 - Unspecified B-cell lymphoma, unspecified site, D50.9 - Iron deficiency anemia, unspecified Comprehensive Metabolic Profil Today C85.10 - Unspecified B-cell lymphoma, unspecified site, D50.9 - Iron deficiency anemia, unspecified LDH Today C85.10 - Unspecified B-cell lymphoma, unspecified site, D50.9 - Iron deficiency anemia, unspecified Vitamin B12 Today C85.10 - Unspecified B-cell lymphoma, unspecified site, D50.9- Iron deficiency anemia, unspecified Hepatitis B/C Profile VIII Today C85.10 - Unspecified B-cell lymphoma, unspecified site, D50.9 - Iron deficiency anemia, unspecified Plan 80-year-old female with diffuse large B-cell lymphoma presenting with the patient palpated left breast intramammary enlarged lymph node. Chronic comorbid conditions: Diabetes, grade 1 peripheral neuropathy, aortic valve disease, anemia,history of supraventricular tachycardia, hypothyroidism on replacement therapy, dyslipidemia, status post gastric bypass. Plan: 1. CBC, CMP, LDH, hepatitis B and C remote panels, iron and B12 profiles. 2. Staging with PET/CT. Follow-up after above. Patient was seen with her . Ratna Bell MD Rv Servicer, [facility] Divisions of Medical Oncology & Hematology Department of Internal Medicine [place] [address] This note was generated using a voice recognition system software. Although itwas reviewed by the author prior to finalization, it may still contain incorrectwords, spelling, and punctuation that were not noted when reviewing prior to saving. If a clinically significant typo or inaccurately typed phrase is noted, please notify the author. Clinical Quality Measures Falls Risk Screening/Assistive Devices Have you fallen in the past year?: No 05/11/25 [address] PALACIOS> Date _ Ratna Bell MD Cosign Signature: Date (if applicable) CC: Dr. Von Velez MD; Dr. Cachorro Gonzalez MD ~ [facility]09-15-2025 [facility] [address] [place], [place] [address]. [address] [place] [address] OFFICE VISIT Date of Service: 05/08/25 MR#: [id number] Acct: [id number] Name: JULIA PLASCENCIA Rep #: [id number] : 1945 Provider: Dr. Lai Feng MD Age/Sex: 80/F Location: [facility] Status: Signed HPI HPI History of Present Illness Details: 80-year-old female with past medical history significant for diabetes mellitus and hypothyroidism. She has recently had Holter monitoring done for her complaints of palpitations. She was noted to have 1% burden of PACs with the longest run of atrial tachycardia consisting of 18 beats at 101 bpm. She has been referred to us for evaluation and management. Per patient, she feels heart palpitations on an infrequent basis, maybe once a week. She feels her heart racing briefly. No associated lightheadedness or dizziness. No syncope or presyncope. She denies any chest pains or shortness of breath either at rest or with exertion. No orthopnea. No PND. No ankle edema. Patient's TSH was checked by her primary care physician and it was within normallimits. Echocardiogram showed normal LV systolic function. Stage II diastolic dysfunction was noted. Mild aortic valve stenosis. Patient recently has had a biopsy done for a mass in her left axilla. It has come back as positive for B-cell lymphoma. She is scheduled to see an oncologist. 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: No Accompanied by: Is patient in pain?: No Allergies No Known Allergies Allergy (Verified 05/08/25 08:53) Medications ?Medication ?Instructions ?Recorded ?Confirmed ?Type calcium carbonate (Calcium 500) 500 mg PO DAILY 04/10/25 History folic acid 0.8 mg capsule 800 mcg PO QDAY 10/13/17 History levothyroxine 75 mcg capsule 75 [...] 01/09/25 0 04/10/25 History iron) tablet (Feosol) gabapentin 300 mg capsule 300 mg PO QHS PRN 05/08/25 0 05/08/25 History glimepiride 1 mg tablet 1 mg PO QDAY 05/08/25 History Ejection fraction %: 65 Have you fallen in the past year?: No PFSH Medical History B-cell lymphoma Hypothyroidism Wears partial dentures Wears glasses Post-menopausal Non-smoker [...] 3-4 times per week seatbelt use: always ROS Const Const: Positive for fatigue; Negative for weakness Eyes Eyes: Negative for change in vision ENT ENT: Negative for dizziness or balance problems Cardio Chest Pain: No Palpitations: Yes feels like its: fast Edema: None Resp Respiratory: Negative for SOB with activity, SOB at rest or SOB orthopnea\SOB lying down GI GI: Negative nausea or heartburn Musc Musc: Negative for balance problems Neuro Neuro: Negative for dizziness, lightheadedness, near syncope, syncope or weakness Endo Endo: Positive for fatigue Cardiology Exam Const Appearance: comfortable and no acute distress Nutritional Appearance: well nourished Neck Neck: no JVD Carotids: Negative bruit Chest Auscultation: Bilateral: Clear to Auscultation Cardio Rate: regular rate Rhythm: regular rhythm Heart sounds: S1 normal and S2 normal Neuro General: patient alert, patient awake and patient oriented x3 Extremities Lower Extremity Edema: None: Bilateral Supplemental Info Supplemental Information Labs: LDL Cholesterol 161 mg/dL (0-130) H HDL Cholesterol 72 mg/dL (40-) Cholesterol 259 mg/dL (<=200) H Triglycerides 98 mg/dL (-199) Diagnostics: Echocardiogram Pulmonary: No Data to Display Past Visits: Cardiology Visit 05/08/25 Assessment and Plan Assessment and Plan (1) Atrial tachycardia: Status: Chronic Plan: 1% burden of PVCs. Infrequent symptoms. Discussed with patient in detail. Sheis not bothered much with her infrequent symptoms. She was counseled that if her symptoms became more frequent or bothersome, to let us know and then we willstart her on a beta-jeff. (2) Aortic valve stenosis: Status: Chronic Plan: Periodic echo and clinical service. Check lipid panel. (3) 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ure: Status: Chronic Plan: Monitor. (4) Diabetes: Status: Chronic Plan: As per PCP. (5) B-cell lymphoma: Status: Chronic Plan: Recently diagnosed. Scheduled to see oncology. Orders: Orders 12 Lead EKG performed by BMS Today Z86.79 - Personal history of other diseases of the circulatory system Plan Details Follow Up: 6 Months Coding Level of Care Code Off vis,new,level 4 Diagnoses Atrial tachycardia I47.19 Aortic valve stenosis I35.0 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ure I51.89 Diabetes E11.9 B-cell lymphoma C85.10 Coding Level of Care Code Off vis,new,level 4 Diagnoses Atrial tachycardia I47.19 Aortic valve stenosis I35.0 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ure I51.89 Diabetes E11.9 B-cell lymphoma C85.10 Clinical Quality Measures Falls Risk Screening/Assistive Devices Have you fallen in the past year?: No Cardiac Ejection fraction %: 65 05/08/25 0931 MD> Date _ Leonel Feng MD [facility] Signature: Date (if applicable) CC: Dr. Cachorro Gonzalez MD ~ [facility]09-15-2025 Progress note Author Leonel Feng [facility] Note Date/Time May 08, 2025 9:31am [facility] [address] [place] [address] OFFICE VISIT Date of Service: 05/08/25 MR#: [id number] Acct: [id number] Name: JULIA PLASCENCIA Rep #: [id number] : 1945 Provider: Dr. Lai Feng MD Age/Sex: 80/F Location: [facility] Status: Signed HPI HPI History of Present Illness Details: 80-year-old female with past medical history significant for diabetes mellitus and hypothyroidism. She has recently had Holter monitoring done for her complaints of palpitations. She was noted to have 1% burden of PACs with the longest run of atrial tachycardia consisting of 18 beats at 101 bpm. She has been referred to us for evaluation and management. Per patient, she feels heart palpitations on an infrequent basis, maybe once a week. She feels her heart racing briefly. No associated lightheadedness or dizziness. No syncope or presyncope. She denies any chest pains or shortness of breath either at rest or with exertion. No orthopnea. No PND. No ankle edema. Patient's TSH was checked by her primary care physician and it was within normallimits. Echocardiogram showed normal LV systolic function. Stage II diastolic dysfunction was noted. Mild aortic valve stenosis. Patient recently has had a biopsy done for a mass in her left axilla. It has come back as positive for B-cell lymphoma. She is scheduled to see an oncologist. 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: No Accompanied by: Is patient in pain?: No Allergies No Known Allergies Allergy (Verified 05/08/25 08:53) Medications ?Medication ?Instructions ?Recorded ?Confirmed ?Type calcium carbonate (Calcium 500) 500 mg PO DAILY 04/10/25 History folic acid 0.8 mg capsule 800 mcg PO QDAY 10/13/17 History levothyroxine 75 mcg capsule 75 [...] 01/09/25 0 04/10/25 History iron) tablet (Feosol) gabapentin 300 mg capsule 300 mg PO QHS PRN 05/08/25 0 05/08/25 History glimepiride 1 mg tablet 1 mg PO QDAY 05/08/25 History Ejection fraction %: 65 Have you fallen in the past year?: No PFSH Medical History B-cell lymphoma Hypothyroidism Wears partial dentures Wears glasses Post-menopausal Non-smoker [...] 3-4 times per week seatbelt use: always ROS Const Const: Positive for fatigue; Negative for weakness Eyes Eyes: Negative for change in vision ENT ENT: Negative for dizziness or balance problems Cardio Chest Pain: No Palpitations: Yes feels like its: fast Edema: None Resp Respiratory: Negative for SOB with activity, SOB at rest or SOB orthopnea\SOB lying down GI GI: Negative nausea or heartburn Musc Musc: Negative for balance problems Neuro Neuro: Negative for dizziness, lightheadedness, near syncope, syncope or weakness Endo Endo: Positive for fatigue Cardiology Exam Const Appearance: comfortable and no acute distress Nutritional Appearance: well nourished Neck Neck: no JVD Carotids: Negative bruit Chest Auscultation: Bilateral: Clear to Auscultation Cardio Rate: regular rate Rhythm: regular rhythm Heart sounds: S1 normal and S2 normal Neuro General: patient alert, patient awake and patient oriented x3 Extremities Lower Extremity Edema: None: Bilateral Supplemental Info Supplemental Information Labs: LDL Cholesterol 161 mg/dL (0-130) H HDL Cholesterol 72 mg/dL (40-) Cholesterol 259 mg/dL (<=200) H Triglycerides 98 mg/dL (-199) Diagnostics: Echocardiogram Pulmonary: No Data to Display Past Visits: Cardiology Visit 05/08/25 Assessment and Plan Assessment and Plan (1) Atrial tachycardia: Status: Chronic Plan: 1% burden of PVCs. Infrequent symptoms. Discussed with patient in detail. Sheis not bothered much with her infrequent symptoms. She was counseled that if her symptoms became more frequent or bothersome, to let us know and then we willstart her on a beta-jeff. (2) Aortic valve stenosis: Status: Chronic Plan: Periodic echo and clinical service. Check lipid panel. (3) 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ure: Status: Chronic Plan: Monitor. (4) Diabetes: Status: Chronic Plan: As per PCP. (5) B-cell lymphoma: Status: Chronic Plan: Recently diagnosed. Scheduled to see oncology. Orders: Orders 12 Lead EKG performed by [facility] Today Z86.79 - Personal history of other diseases of the circulatory system Plan Details Follow Up: 6 Months Coding Level of Care Code Off vis,new,level 4 Diagnoses Atrial tachycardia I47.19 Aortic valve stenosis I35.0 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ure I51.89 Diabetes E11.9 B-cell lymphoma C85.10 Coding Level of Care Code Off vis,new,level 4 Diagnoses Atrial tachycardia I47.19 Aortic valve stenosis I35.0 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ure I51.89 Diabetes E11.9 B-cell lymphoma C85.10 Clinical Quality Measures Falls Risk Screening/Assistive Devices Have you fallen in the past year?: No Cardiac Ejection fraction %: 65 05/08/25 0931 <Electronically signed by Leonel Feng MD> Date _ Leonel Feng MD Cosigner Signature: Date (if applicable) CC: Dr. Cachorro Gonzalez MD ~ [facility] Work Phone: 1(485) 843-176108-18-2025 Evaluation note* Diagnosis Onset Date Resolution Status Admit Date Left breast mass acute March 242024 7:46am Aortic valve stenosis chronic Sep 2024 8:33am Atrial tachycardia chronic Septem 2024 8:33am Diabetes chronic April 8:33am Diastolic dysfunction withou t heart failure chronic May 08, 2025 8:33am B-cell lymphoma deleted May 08, 2025 8:33am DLBCL (diffuse large B cell lymphoma) acute May 11, 2025 10:07am [facility] Work Phone: 1([phone]) 339-244208-18-2025 Evaluation note* Diagnosis Onset Date Resolution Status Admit Date Left breast mass acute March 242024 7:46am Aortic valve stenosis chronic Sep 2024 8:33am Atrial tachycardia chronic 2024 8:33am Diabetes chronic April 8:33am Diastolic dysfunction withou t heart failure chronic May 08, 2025 8:33am B-cell lymphoma deleted May 08, 2025 8:33am DLBCL (diffuse large B cell lymphoma) acute May 11, 2025 10:07am DLBCL (diffuse large B cell lymphoma) acute May 23, 2025 1:57pm [facility] Work Phone: 1(759) 375-513208-18-2025 Evaluation note* Diagnosis Onset Date Resolution Status Admit Date Left breast mass acute March 242024 7:46am Aortic valve stenosis chronic Sep 2024 8:33am Atrial tachycardia chronic 2024 8:33am Diabetes chronic April 8:33am Diastolic dysfunction withou t heart failure chronic May 08, 2025 8:33am B-cell lymphoma deleted May 08, 2025 8:33am DLBCL (diffuse large B cell lymphoma) acute May 11, 2025 10:07am DLBCL (diffuse large B cell lymphoma) acute May 23, 2025 1:57pm DLBCL (diffuse large B cell lymphoma) acute May 25 8:34am [facility] Work Phone: 1([phone]) 987-452608-18-2025 Evaluation note* Diagnosis Onset Date Resolution Status Admit Date Left breast mass acute March 242024 7:46am Aortic valve stenosis chronic Sep 2024 8:33am Atrial tachycardia chronic 2024 8:33am Diabetes chronic April 8:33am Diastolic dysfunction withou t heart failure chronic May 08, 2025 8:33am B-cell lymphoma deleted May 08, 2025 8:33am DLBCL (diffuse large B cell lymphoma) acute May 11, 2025 10:07am DLBCL (diffuse large B cell lymphoma) acute May 23, 2025 1:57pm DLBCL (diffuse large B cell lymphoma) acute May 25 8:34am Encounter for education acute O ctober 2024 8:34am Encounter for insertion of venous access port acute May 29, 2025 8:36[facility] Work Phone: 1([phone]) 981-540108-18-2025 Evaluation note* Diagnosis Onset Date Resolution Status Admit Date Left breast mass acute March 242024 7:46am Aortic valve stenosis chronic Apr 8:33am Atrial tachycardia chronic 2024 8:33am Diabetes chronic April 8:33am Diastolic dysfunction withou t heart failure chronic May 08, 2025 8:33am B-cell lymphoma deleted May 08, 2025 8:33am DLBCL (diffuse large B cell lymphoma) acute May 11, 2025 10:07am DLBCL (diffuse large B cell lymphoma) acute May 23, 2025 1:57pm DLBCL (diffuse large B cell lymphoma) acute May 25 8:34am Encounter for education acute O ctober 2024 8:34am Encounter for insertion of venous access port acute May 29, 2025 8:36am DLBCL (diffuse large B cell lymphoma) acute June 07 7:34am Encounter for antineoplastic chemotherapy and immunotherapy acute O ctober 2024 7:34am DLBCL (diffuse large B cell lymphoma) acute June 12 9:01am [facility] Work Phone: 1([phone]) 183-130508-18-2025 Evaluation note* Diagnosis Onset Date Resolution Status Admit Date Left breast mass acute March 242024 7:46am Aortic valve stenosis chronic Apr 8:33am Atrial tachycardia chronic 2024 8:33am Diabetes chronic April 8:33am Diastolic dysfunction withou t heart failure chronic May 08, 2025 8:33am B-cell lymphoma deleted May 08, 2025 8:33am DLBCL (diffuse large B cell lymphoma) acute May 11, 2025 10:07am DLBCL (diffuse large B cell lymphoma) acute May 23, 2025 1:57pm DLBCL (diffuse large B cell lymphoma) acute May 25 8:34am Encounter for education acute O ctober 2024 8:34am Encounter for insertion of venous access port acute May 29, 2025 8:36am DLBCL (diffuse large B cell lymphoma) acute June 07 7:34am Encounter for antineoplastic chemotherapy and immunotherapy acute O ctober 2024 7:34am DLBCL (diffuse large B cell lymphoma) acute June 12 9:01am DLBCL (diffuse large B cell lymphoma) acute June 28 7:32am Encounter for antineoplastic chemotherapy and immunotherapy acute N ovember 2024 7:32am [facility] Work Phone: 1([phone]) 456-638808-18-2025 [facility] [address] [place] [address] OFFICE VISIT Date of Service: 04/10/25 MR#: [id number] Acct: [id number] Name: JULIA PLASCENCIA Rep #: [id number] : 1945 Provider: Dr. Maggi Velez MD Age/Sex: 80/F Location: [facility] Status: Signed Intake Vital Signs 02/07/25 07:30 04/10/25 07:55 Height 5 ft 5 in 5 ft 5 in Weight: 162 lb BMI 26.9 BP 131/76 H Blood Pressure Location Rt brachial Position Sitting Respiration 16 Intake Visit Reasons: BIRADS 4 Chief Complaint: left breast mass Wall Steamer Required: No Is patient in pain?: No [...] mg (65 mg 325 mg PO TID 05/19/25 0 04/10/25 History iron) tablet (Feosol) Have [...] General: cooperative Orientation: alert and oriented x3 HENNV Head: normal to inspection Neck Neck: normal [...] well. Alert Jose Yes Biopsy Lymphnode Biopsy: 52677 Lymphnode Procedure Time Out Time Out Informed [...] that. I performed a biopsy of the lymphnode in the office today. I will call her with results next week. Patient tolerated the procedure well. Von Velez MD Pager: [facility] [address] [place] [phone] Office: Orders: Orders Biopsy Today N63.20 - Unspecified lump in the left breast, unspecified quadrant Coding Level of Care Code Off vis,est,level 3 Diagnoses Left breast mass N63.20 CPT Codes Biopsy - Lymphnode Biopsy: 85253 Lymphnode (62061) Clinical Quality Measures Falls Risk Screening/Assistive Devices Have you fallen in the past year?: No 04/10/25 0815 john PALACIOS> Date _ Von Velez MD Cosigner Signature: Date (if applicable) CC: Dr. Cachorro Gonzalez MD ~ [facility]08-18-2025 Progress note Author Von Velez [facility] Note Date/Time April 10, 2025 8: 15am [facility] [address] [place] [address] OFFICE VISIT Date of Service: 04/10/25 MR#: [id number] Acct: [id number] Name: JULIA PLASCENCIA Rep #: [id number] : 1945 Provider: Dr. Maggi Velez MD Age/Sex: 80/F Location: [facility] Status: Signed Intake Vital Signs 02/07/25 07:30 04/10/25 07:55 Height 5 ft 5 in 5 ft 5 in Weight: 162 lb BMI 26.9 BP 131/76 H Blood Pressure Location Rt brachial Position Sitting Respiration 16 Intake Visit Reasons: BIRADS 4 Chief Complaint: left breast mass Wall Steamer Required: No Is patient in pain?: No [...] well. Alert Jose Yes Biopsy Lymphnode Biopsy: 60300 Lymphnode Procedure Time Out Time Out Informed [...] the procedure well. Von Velez MD Pager: [facility] [address] [place] [address], [address] [place] [phone] Office: Orders: Orders Biopsy Today N63.20 - Unspecified lump in the left breast, unspecified quadrant Coding Level of Care Code Off vis,est,level 3 Diagnoses Left breast mass N63.20 CPT Codes Biopsy - Lymphnode Biopsy: 20388 Lymphnode (55600) Clinical Quality Measures Falls Risk Screening/Assistive Devices Have you fallen in the past year?: No 04/10/25 0815 <Electronically signed by Von lopez MD> Date _ Von Velez MD Cosigner Signature: Date (if applicable) CC: Dr. Cachorro Gonzalez MD ~ [facility] Work Phone: 1([phone]) 387-633708-12-2025 Radiology Diagnostic study note [facility] Imaging Services [address] [address] Breast Limited Unilateral MR#: [id number] Acct: [id number] Name: JULIA PLASCENCIA Rep #: [id number] : 1945 F 80 From: Annie William MD PCP: Dr. Cachorro Gonzalez MD Status: CARLO CELESTIN Study:Breast Limited Unilateral Date of Exam: 04/04/25 Exam# [id number] Ordering Dr: Cachorro Gonzalez MD EXAM: DIAG MAMM W/CAD, BILAT; BREAST [...] be mailed to the patient. Reading Location: [facility] CC: Dr. Cachorro Gonzalez MD ~ Hydraulic Miner: Signed [facility]06-17-2025 Consult note Author Jose Raul Arben [facility] Note Date/Time February 07, 2025 7:42 am [facility] Medical Records Department [address] [place] [address] Pre-Anesthesia Evaluation 02/07/25 0737 MR#: [id number] Acct: [id number] Name: JULIA PLASCENCIA Rep #:[id number] : 1945 79 From: Jose Raul Theodore MD PCP: Dr. Cachorro Gonzalez MD Status:REG S DC Y Race: C Location: [place] [address] ASA Classification* ASA Classification ASA Classification: 2 [...] CBC WBC 3.5 K/mm3 (4.4-11.0) L 12/28/24 09:12/28/24 RBC 4.05 M/mm3 (4.2-5.4) L 12/28/24 09:12/28/24 Hgb 8.2 g/dL (12.0-15.0) L 12/28/24 09:25 12/28/24 Hct 27.8 % (37-47) L 12/28/24 09:12/28/24 Plt Count 241 K/mm3 (150-450) 12/28/24 09:25 12/28/24 CHEMISTRY Potassium 3.8 mmol/L (3.3-5.1) 12/28/24 09:12/28/24 Sodium 141 mmol/L (133-145) 12/28/24 09:25 12/28/24 BUN 7 mg/dL (4-19) 12/28/24 09:25 12/28/24 Creatinine 0.57 mg/dL (0.70-1.20) L 12/28/24 09: Glucose 103 mg/dL (70-99) H 12/28/24 09:25 12/28/24 POC Glucose 162 mg/dL (70-110) H 10/28/19 07:56 10/28/19 TSH 1.220 uIU/mL (0.300-4.200) 12/28/24 09:25 05/0 03/17 COAG Pre-Assessment Diagnosis/Proposed Procedure Planned Operative Procedure(s): COLONOSCOPY/EGD Anesthesia History Anesthesia History - shift nurse manager: Anesthesia History - shift nurse manager Hx Hospitalization No 02/03/25 09:14 Any Problems [...] take am of surgery PONV PONV - shift nurse manager: PONV - shift nurse manager Female Yes 02/03/25 09:14 HX of Motion [...] 02/07/25 07:30 Respiratory Assessment Respiratory Assessment - shift nurse manager: Respiratory Tract Infection Hx - shift nurse manager Hx Respiratory Tract Infection No 02/03/25 09:14 STOP Sleep Apnea STOP Sleep Apnea - shift nurse manager: STOP Sleep Apnea - shift nurse manager Hx Hypertension No: hypotension 02/03/25 09:14 Hx [...] Tobacco Use History Tobacco Use History - shift nurse manager: Tobacco Use History - shift nurse manager Tobacco Use Smoking Status Never smoker 02/03/25 09:14 Hx Tobacco Use No 02/03/25 09:14 Years Smoking Packs Smoked per Day Smoking Cessation Date was within the last 15 years Hx Smoking Cessation Date Hx Smoking Cessation Counseling Hematologic Medial History Hematologic Hx - shift nurse manager: 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 Hx of Blood Transfusion Yes 02/03/25 09:14 [...] confused, unrespo /Reproduction History /Reproductive History - shift nurse manager: /Reproductive Hx- shift nurse manager Hx Now No 02/03/25 09:14 Gestational Age [...] Family History (Updated 01/09/25 @ 13:52 by Gregory Hernandez) Mother Uterine cancer Sister Heart disease [...] Raul Theodore MD> Date _ Jose Raul Michel Signature: Date CC: ~ Signed [facility] Work Phone: 1(683) 421-691206-17-2025 Procedure note [facility] Medical Records Department [address] [place] [address] Colonoscopy Report MR#: [id number] Acct: [id number] Name: JULIA PLASCENCIA Rep #:[id number] : 1945 79 From: Von bhandari MD PCP: Dr. Cachorro Gonzalez MD Status:REG S DC Patient Name: Julia Plascencia Procedure Date: 02/07/2025 8:32 AM Date of : 1945 Age: 79 Procedure: Colonoscopy Indications: Iron deficiency anemia Providers: Von Velez MD Referring MD: Cachorro Gonzalez MD Medicines: Propofol per Anesthesia Patient Profile: [...] screening purposes. Procedure Code(s): --- Professional --- 28695, Colonoscopy, flexible; diagnostic, including collection of specimen(s) by brushing or washing, when performed (separate procedure) Diagnosis Code(s): --- Professional --- D50.9, Iron deficiency anemia, unspecified CPT copyright 2021 [employer]. All rights reserved. The codes documented in this report are preliminary and upon lang interpreter review may be revised to meet current compliance requirements. Von Velez MD 02/07/2025 8:59:20 AM This report has been signed electronically. Number of Addenda: 0 Note Initiated On: 02/07/2025 8:32 AM 02/07/25 0859 Date _ Von Velez MD Cosigner Signature: Date (if indicated) CC: Dr. Von Velez MD; Dr. Cachorro Gonzalez MD ~ Date Dictated: 02/07/25831 Date Transcribed: Hydraulic Miner: ALTAGRACIA Signed [facility]06-17-2025 Procedure note [facility] Medical Records Department [address] [place] [id number] Operative Report - CC Letter MR#: [id number] Acct: [id number] Name: JULIA PLASCENCIA Rep #:[id number] : 1945 79 From: Von bhandari MD PCP: Dr. Cachorro Gonzalez MD Status:REG S DC 02/07/2025 Cachorro Gonzalez MD [address] [place] [phone] Re : Colonoscopy procedure for Julia Plascencia Dear Dr. Gonzalez This procedure was performed on Friday, February [...] electronically. 02/07/25858 Date _ Von Velez MD Cosigner Signature: Date (if indicated) CC: Dr. Von Velez MD; Dr. Cachorro Gonzalez MD ~ Date Dictated: 02/07/25831 Date Transcribed: Hydraulic Miner: AC Signed [facility]06-17-2025 Procedure note [facility] Medical Records Department [address] [place] [address] EGD Report MR#: [id number] Acct: [id number] Name: JULIA PLASCENCIA Rep #:[id number] : 1945 79 From: Von bhandari MD PCP: Dr. Cachorro Gonzalez MD Status:REG S DC Patient Name: Julia Plascencia Procedure Date: 02/07/2025 8:23 AM Date of : 1945 Age: 79 Procedure: Upper GI endoscopy Indications: Iron deficiency anemia Providers: Von Velez MD Referring MD: Cachorro Gonzalez MD Medicines: Propofol per Anesthesia Patient Profile: [...] present medications. Procedure Code(s): --- Professional --- 34481, Esophagogastroduodenoscopy, flexible, transoral; diagnostic, including collection of specimen(s) by brushing or washing, when performed (separate procedure) Diagnosis Code(s): --- Professional --- D50.9, Iron deficiency anemia, unspecified CPT copyright 2021 [employer]. All rights reserved. The codes documented in this report are preliminary and upon lang interpreter review may be revised to meet current compliance requirements. Von Velez MD 02/07/2025 8:56:06 AM This report has been signed electronically. Number of Addenda: 0 Note Initiated On: 02/07/2025 8:23 AM 02/07/25855 Date _ Von Velez MD Cosigner Signature: Date (if indicated) CC: Dr. Von Velez MD; Dr. Cachorro Gonzalez MD ~ Date Dictated: 02/07/25822 Date Transcribed: Hydraulic Miner: AC Signed [facility]06-17-2025 Procedure note [facility] Medical Records Department [address] [place] [address] Operative Report - CC Letter MR#: [id number] Acct: [id number] Name: JULAI PLASCENCIA Rep #:[id number] : 1945 79 From: Von bhandari MD PCP: Dr. Cachorro Gonzalez MD Status:REG S DC 02/07/2025 Cachorro Gonzalez MD [address] [place] [address] Re : Upper GI endoscopy procedure for Julia Plascencia Dear Dr. Gonzalez This procedure was performed on Friday, February [...] CC: Dr. Von Velez MD; Dr. Cachorro Gonzalez MD ~ Date Dictated: 02/07/25822 Date Transcribed: Hydraulic Miner: ALTAGRACIA Signed [facility]06-17-2025 History and physical note [facility] Medical Records Department [address] [place] [address] History & Physical Exam 02/07/25814 MR#: [id number] Acct: [id number] Name: JULIA PLASCENCIA Rep #:[id number] : 1945 79 From: Von bhandari MD PCP: Dr. Cachorro Gonzalez MD Status:REG S DC Location: [facility]12-1 History and Physical Date of Admission: [...] Family History (Updated 01/09/25 @ 13:52 by Gregory Hernandez) Mother Uterine cancerSister Heart disease Thyroid [...] General: cooperative Orientation: alert and oriented x3 HENNV Head: normal to inspection Neck Neck: normal [...] proceed with procedure. Von Velez MD Pager: [facility] [address] [place] [address], [address] [place] [phone] Office: I have examined the patient and the H&P has been reviewed. There are no clinicalchanges since date of exam. 02/07/25814 Cosigner Signature (if applicable): CC: Dr. Von Velez MD; Dr. Cachorro Gonzalez MD~ Signed [facility]06-17-2025 [facility] Medical Records Department [address] [place], [place] [phone] History Physical Exam 02/07/25814 MR#: [id number] Acct: [id number] Name: JULIA PLASCENCIA Rep #: [id number] : 1945 79 From: Von Velez MD PCP: Dr. Cachorro Gonzalez MD Status:[facility] Location: [place] [address] History and Physical Date of Admission: 02/07/25 [...] Family History (Updated 01/09/25 @ 13:52 by Gregory Hernandez) Mother Uterine cancerSister Heart disease Thyroid [...] ROM Chest Chest pal (more content not included)...[facility]06-17-2025 Consult note [facility] Medical Records Department [address] [place] [address] Pre-Anesthesia Evaluation 02/07/25 0737 MR#: [id number] Acct: [id number] Name: JULIA PLASCENCIA Rep #:[id number] : 1945 79 From: Jose Raul Theodore MD PCP: Dr. Cachorro Gonzalez MD Status:REG S DC Y Race: C Location: [place] [address] ASA Classification* ASA Classification ASA Classification: 2 [...] 10/28/19 TSH 1.220 uIU/mL (0.300-4.200) 12/28/24 09:25 05/0 03/17 COAG Pre-Assessment Diagnosis/Proposed Procedure Planned Operative Procedure(s): COLONOSCOPY/EGD Anesthesia History Anesthesia History - shift nurse manager: Anesthesia History - shift nurse manager Hx Hospitalization No 02/03/25 09:14 Any Problems [...] take am of surgery PONV PONV - shift nurse manager: PONV - shift nurse manager Female Yes 02/03/25 09:14 HX of Motion [...] 02/07/25 07:30 Respiratory Assessment Respiratory Assessment - shift nurse manager: Respiratory Tract Infection Hx - shift nurse manager Hx Respiratory Tract Infection No 02/03/25 09:14 STOP Sleep Apnea STOP Sleep Apnea - shift nurse manager: STOP Sleep Apnea - shift nurse manager Hx Hypertension No: hypotension 02/03/25 09:14 Hx [...] Tobacco Use History Tobacco Use History - shift nurse manager: Tobacco Use History - shift nurse manager Tobacco Use Smoking Status Never smoker 02/03/25 09:14 Hx Tobacco Use No 02/03/25 09:14 Years Smoking Packs Smoked per Day Smoking Cessation Date was within the last 15 years Hx Smoking Cessation Date Hx Smoking Cessation Counseling Hematologic Medial History Hematologic Hx - shift nurse manager: 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 Hx of Blood Transfusion Yes 02/03/25 09:14 [...] confused, unrespo /Reproduction History /Reproductive History - shift nurse manager: /Reproductive Hx- shift nurse manager Hx Now No 02/03/25 09:14 Gestational Age (in weeks): EDC: Hx Hx Para Hx Section SAB No 02/03/25 09:14 Active Medications Active Medications: Current Medications Generic Name Dose Route Start Last Admin Trade Name Tawny PRN Reason Stop Dose Admin Lactated Ringer's [...] Family History (Updated 01/09/25 @ 13:52 by Gregory Hernandez) Mother Uterine cancer Sister Heart disease [...] > Date _ Jose Raul Theodore MD Cosigner Signature: Date CC: ~ Signed [facility]05-19-2025 Evaluation note* Diagnosis Onset Date Resolution Status Admit Date Anemia acute January 09, 2025 1:32pm H/O gastric bypass acute January 092024 1:32pm [facility] Work Phone: 1(180) 415-644405-19-2025 Evaluation note* Diagnosis Onset Date Resolution Status Admit Date Anemia acute January 09, 2025 1:32pm H/O gastric bypass acute January 092024 1:32pm Left breast mass acute March 242024 7:46am [facility] Work Phone: 1(833) 800-554305-19-2025 Evaluation note* Diagnosis Onset Date Resolution Status Admit Date Anemia acute January 09, 2025 1:32pm H/O gastric bypass acute January 092024 1:32pm Left breast mass acute March 242024 7:46am Aortic valve stenosis chronic Sep 2024 8:33am Atrial tachycardia chronic 2024 8:33am B-cell lymphoma chronic May 08, 2025 8:33am Diabetes chronic April 8:33am Diastolic dysfunction withou t heart failure chronic May 08, 2025 8:33am [facility] Work Phone: 1(676) 408-733805-19-2025 [facility] [address] [place] [address] OFFICE VISIT Date of Service: 01/09/25 MR#: [id number] Acct: [id number] Name: JULIA PLASCENCIA Rep #: [id number] : 1945 Provider: Dr. Maggi Velez MD Age/Sex: 79/F Location: [facility] Status: Signed Intake Vital Signs 01/07/21 08:19 [...] Family History (Updated 01/09/25 @ 13:52 by Gregory Hernandez) Mother Uterine cancer Sister Heart disease [...] proceed with procedure. Von Velez MD Pager: [facility] [address] [place] [address], [address] [place] [address] Office: Coding Level of Care Code Off [...] Signature: Date (if applicable) CC: Dr. Cachorro Gonzalez MD ~ [facility]05-19-2025 Progress note Author Von Velez [facility] Note Date/Time January 09, 2025 2:00p [facility] [address] [place] [address]. [address] [place] [address] OFFICE VISIT Date of Service: 01/09/25 MR#: [id number] Acct: [id number] Name: JULIA PLASCENCIA Rep #: [id number] : 1945 Provider: Dr. Maggi Velez MD Age/Sex: 79/F Location: [facility] Status: Signed Intake Vital Signs 01/07/21 08:19 [...] Family History (Updated 01/09/25 @ 13:52 by Gregory Hernandez) Mother Uterine cancer Sister Heart disease [...] General: cooperative Orientation: alert and oriented x3 [facility] Head: normal to inspection Neck Neck: normal [...] proceed with procedure. Von Velez MD Pager: [facility] [address] [place] [address], [address] [place] [address] Office: Coding Level of Care Code Off [...] Signature: Date (if applicable) CC: Dr. Cachorro Gonzalez MD ~ [facility] [employer] [facility] Work Phone: Consult note [facility] Medical Records Department [address] [place], [place] [id number] Anesthesia Postop Eval II 06/06/252214 MR#: [id number] Acct: [id number] Name: JULIA PLASCENCIA Rep #:[id number] : 1945 80 From: Adam Peter MD PCP: Dr. Cachorro Gonzalez MD Status:DEP S DC Y Race: C Location: [facility] Anesthesia Postop Eval I Sum Postop Eval Completion status Anesthesia document: Postop Eval 1 completed: Yes Anesthesia Postop Eval I Summary Anesthesia Postop Eval I Summary: Anesthesia Postop Eval I: Assessment Summary Airway patent Yes 06/06/25 14:19 [employer]SHOF Spontaneous unlabored Yes 06/06/25 14:19 [employer]SHOF respirations Mental status Awake,Calm 06/06/25 14:19 [employer]SHOF nausea No 06/06/25 14:19 [employer]SHOF Vomiting No 06/06/25 14:19 [employer]SHOF Anesthesia Postop Eval I: Fluid Summary Crystalloid volume administer 600 06/06/25 14:19 [employer].SHOF (ml) Colloids volume administered ( ml) Blood Product volume administered (ml) Total IV fluid infused 600 06/06/25 14:19 [employer]SHOF Anesthesia Postop Eval I: Summary Notes Anesthesia Complication No 06/06/25 14:19 [employer]SHOF Anesthesia Complication Comment: Post-operative progress note Anesthesia: Postop Eval II Evaluation Mental status: Awake and Calm Pain Level: 1 nausea: No Vomiting: No Complications Anesthesia Complication: No 06/06/25 2216 mazin PALACIOS> Date _ Adam Peter MD Cosigner Signature: Date CC: ~ [facility]igned [facility] Michael Marroquin [facility] Note Date/Time June 06, 2025 2 :19pm [facility] Medical Records Department [address] [place] [address] [place] [address] Anesthesia Postop Eval I 06/06/25 1416 MR#: [id number] Acct: [id number] Name: JULIA PLASCENCIA Rep #:[id number] : 1945 80 From: Michael Marroquin CRNA PCP: Dr. Cachorro Gonzalez MD Status:CARLO Rodriguez DC Y Race: C Location: [place] [address] Anesthesia: Postop Eval I Current Vital Signs Temperature: 96.9 F Pulse Rate: 87 Blood Pressure: 115/76 Respiratory Rate: 12 Pulse Ox: 97 Oxygen Delivery Method: Room Air Assessment Airway patent: Yes Spontaneous unlabored respirations: Yes Mental status: Awake and Calm nausea: No Vomiting: No Anesthesia Complication: No Fluid Hydration Crystalloid volume administer (ml): 600 Total IV fluid infused: 600 Progress Note Anesthesia document: Postop Eval 1 completed: Yes 06/06/25 1419 <Electronically signed by Michael john CRNA> Date _ Michael Marroquin CRNA Cosigner Signature: Date CC: ~ Signed [facility] Work Phone: Consult note Author [facility] Note Date/Time June 06, 2025 1 0:16pm [facility] Medical Records Department [address] [place] [address] Anesthesia Postop Eval II 06/06/255 MR#: [id number] Acct: [id number] Name: JULIA PLASCENCIA Rep #:[id number] : 1945 80 From: Adam Peter MD PCP: Dr. Cachorro Gonzalez MD Status:DEP S ELIZABETH Y Race: C Location: [facility] Anesthesia Postop Eval I Sum Postop Eval Completion status Anesthesia document: Postop Eval 1 completed: Yes Anesthesia Postop Eval I Summary Anesthesia Postop Eval I Summary: Anesthesia Postop Eval I: Assessment Summary Airway patent Yes 06/06/25 14:19 [employer]SHOF Spontaneous unlabored Yes 06/06/25 14:19 [employer]SHOF respirations Mental status Awake,Calm 06/06/25 14:19 [employer].SHOF nausea No 06/06/25 14:19 [employer]SHOF Vomiting No 06/06/25 14:19 [employer]SHOF Anesthesia Postop Eval I: Fluid Summary Crystalloid volume administer 600 06/06/25 14:19 [employer].SHOF (ml) Colloids volume administered ( ml) Blood Product volume administered (ml) Total IV fluid infused 600 06/06/25 14:19 [employer]SHOF Anesthesia Postop Eval I: Summary Notes Anesthesia Complication No 06/06/25 14:19 [employer]SHOF Anesthesia Complication Comment: Post-operative progress note Anesthesia: Postop Eval II Evaluation Mental status: Awake and Calm Pain Level: 1 nausea: No Vomiting: No Complications Anesthesia Complication: No 06/06/256 <Electronically signed by Adam retana MD> Date _ Adam Peter MD Cosigner Signature: Date CC: ~ Signed [facility] Work Phone: Discharge summary Author Von Velez [facility] Note Date/Time June 06, 2025 2 :14pm [facility] Medical Records Department [address] [place] [address] Instructions for Home/Discharge Instructions 06/06/25 1413 MR#: [id number] Acct: [id number] Name: JULIA PLASCENCIA Rep #:[id number] : 1945 80 From: oVn bhandari MD PCP: Dr. Cachorro Gonzalez MD Status:REG S DC Discharge Instructions Procedure Port-A-Cath Diet Discharge Diet: Light diet - advance as tolerated (Pain medication may cause nausea. You should typically eat light foods as you take your pain medication.) Activity Discharge Activity: Return to Normal Activity and May Shower (with your bandage in place in 1-2 days after surgery. DO NOT SHOWER WHEN YOUR PORT IS ACCESSED.) Lifting Restrictions: 15 pounds for 1 week Additional Activity Instructions:: Alternate ibuprofen and Tylenol for pain control Resume aspirin tomorrow Dressing / Incision Call your doctor if your incision/area has: Continuous Slow Oozing, Sudden Increased Bleeding, Increased Pain/ Swelling, Increased Redness and Foul Smelling Discharge Call your doctor if you observe: Fever of 101 or Higher Remove Dressing in: 2 days Cleanse incision/area with: Soap & Water Follow Up Care Please Follow Up With: Von Velez MD When: as needed [phone] Test Results: Test results from this visit will be discussed in further detail at your follow- up appointment, if applicable. Discharge Plan Admission Attending Provider: Von Velez Primary Care Provider: Cachorro Gonzalez Instructions Print Language: Dutch Discharge Orders/Prescriptions Prescriptions: No Action metformin 1,000 mg tablet 1,000 mg PO BID levothyroxine 75 mcg capsule 75 mcg PO DAILY calcium carbonate [Calcium 500] 500 mg calcium (1,250 mg) tablet 500 mg PO DAILY folic acid 0.8 mg capsule 800 mcg PO QDAY multivitamin tablet 1 tab PO QAM magnesium oxide 400 mg tablet 400 mg PO DAILY ferrous sulfate [Feosol] 325 mg (65 mg iron) tablet 325 mg PO TID glimepiride 1 mg tablet 1 mg PO QDAY gabapentin 300 mg capsule 300 mg PO QHS PRN (Reason: pain) prochlorperazine maleate 10 mg tablet 10 mg PO Q6H PRN (Reason: nausea and vomiting) Qty: 30 2RF acyclovir 400 mg tablet 400 mg PO BID Qty: 60 0RF ondansetron 8 mg tablet,disintegrating 8 mg PO Q8H PRN (Reason: nausea and vomiting) Qty: 30 2RF lidocaine-prilocaine 2.5-2.5 % cream 1 applic topical ONCE PRN (Reason: port access) 30 Days Qty: 30 2RF prednisone 50 mg tablet 100 mg PO .COMPLEX Qty: 60 0RF Rx Instructions: 100 mg orally daily ONLY days 1-5 of treatment cycle allopurinol 300 mg tablet 300 mg PO .COMPLEX Qty: 10 0RF Rx Instructions: 300 mg orally daily on days 0-9 of treatment cycle only aspirin 81 MG tablet,delayed release (DR/EC) 81 mg PO DAILY Patient Comments: follow instructions about stopping Referrals / Follow Up: Cachorro Gonzalez MD [Primary Care Provider, Family Practice] Disposition Disposition (needs filled in before D/C Order can be placed): Home, Self Care 06/06/25 1414<Electronically signed by Von Velez MD>Von Velez MD CC: Dr. Cachorro Gonzalez MD ~ Signed [facility] Work Phone: Evaluation noteNo assessment information available [facility] Work Phone: Evaluation note* Diagnosis Onset Date Resolution Status Admit Date Anemia acute January 09, 2025 1:32pm H/O gastric bypass acute January 092024 1:32pm [facility] Work Phone: History and physical note Author Von Velez [facility] Note Date/Time February 07, 2025 8:15 am [facility] Medical Records Department [address] [place] [address] History & Physical Exam 02/07/25 0815 MR#: [id number] Acct: [id number] Name: JULIA PLASCENCIA Rep #:[id number] : 1945 79 From: Von bhandari MD PCP: Dr. Cachorro Gonzalez MD Status:REG S LA Location: [place] [address] History and Physical Date of Admission: 02/07/25 [...] Family History (Updated 01/09/25 @ 13:52 by Gregory Hernandez) Mother Uterine cancerSister Heart disease Thyroid [...] General: cooperative Orientation: alert and oriented x3 [facility] Head: normal to inspection Neck Neck: normal [...] proceed with procedure. Von Velez MD Pager: [facility] [address] [place] [address] [address] [place] [address] Office: I have examined the patient and the H&P has been reviewed. There are no clinicalchanges since date of exam. 02/07/25 0815 <Electronically signed by Von Velez MD> Cosigner Signature (if applicable): CC: Dr. Von Velez MD; Dr. Cachorro Gonzalez MD~ Signed [facility] Work Phone: Hospital Discharge instructionsAmbulatory Orders* General Surgery Location: None Selected [facility] Work Phone: Progress note Author Ratna Bell [facility] Note Date/Time May 11, 2025 11:01am [facility] [address] [place] [address] OFFICE VISIT Date of Service: 05/11/25 1012 MR#: [id number] Acct: [id number] Name: JULIA PLASCENCIA Rep #: [id number] : 1945 From: Ratna nation MD Age/Sex: 80/F Location: [facility] Status: Signed HPI Subjective Date of Service 05/11/25 Chief Complaint left breast mass, lymphoma History of Present Illness 80-year-old female who felt a painless lump in the left breast in February 2025 and loss 20 pounds of weight despite a preserved appetite. April 04, 2025 diagnostic mammogram: IMPRESSION: Abnormal intramammary lymph node in the left breast at 2 o'clock 9 cm from the nipple. April 04, 2025 breast ultrasound: IMPRESSION: Abnormal intramammary lymph node in the left breast at 2 o'clock 9 cm from the nipple. April 10, 2025 Left breast, mass/lymph node, breast, core biopsy: - Lymphoid tissue negative for carcinoma ? see note and Comment. - Mature adipose tissue. - No breast epithelium observed. Note: This case will be sent to [facility] for formal consultation with the hematopathology division of the Pathology Department, to rule out a lymphoproliferative disorder. A separate report from [facility] will follow. IHCs were obtained and will be reported by the individual pension consultant pathologist. COMMENT: A portion of the tissue was sent in RPMI for flow cytometry to [facility]. The flow cytometry showed ?no immunophenotypic evidence of an abnormal population of B lymphocytes or T lymphocytes. Few B-cells detected?. Diagnosis provided by Dr Ashlyn Baeza ([facility] hematopathology division) This addendum is added to incorporate an outside pathology consultation report. The case was examined at [facility] by Dr. Monte (#[id number]) and the following diagnosis was rendered. A. 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 Diagnosis Comment: As described in detail in the synoptic report below, the assessment is somewhat challenging due to the very scant nature of the specimen. However, overall, there is convincing evidence of a neoplastic large B-cell infiltrate expressing germinal center associated markers (BCL6, CD10) and showing a diffuse infiltrative pattern not associated with follicular dendritic cell meshworks. The findings are consistent with an aggressive B-cell lymphoma. FISH studies have been ordered, and the results will be reported in an addendum. Addendum: No rearrangements of BCL2, BCL6 or MYC genes are detected by FISH. 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 [facility] Medical History (Updated 05/11/25 @ 10:[address] Ratna Bell MD) DLBCL (diffuse large B cell lymphoma) Hypothyroidism Wears partial dentures Wears glasses Post-menopausal Non-smoker [...] 3-4 times per week seatbelt use: always ROS Constitutional Constitutional: Reports fatigue and weight loss; Denies anorexia, fever(s) or night sweats Eyes Eyes: Reports systems reviewed and no addt'l complaints, except as documented ENT HEENT: Reports systems reviewed and no addt'l complaints, except as documented; Denies mouth lesions Cardiovascular Cardiovascular: Reports systems reviewed and no addt'l complaints, except as documented; Denies chest pain with activity or edema Respiratory/Chest Respiratory/Chest: Reports systems reviewed and no addt'l complaints, except as documented; Denies cough or dyspnea Gastrointestinal Gastrointestinal: Reports systems reviewed and no addt'l complaints, except as documented; Denies abdominal pain, change in bowel habits, hematochezia or melena Genitourinary Genitourinary: Reports systems reviewed and no addt'l complaints, except as documented Musculoskeletal Musculoskeletal: Reports systems reviewed and no addt'l complaints, except as documented; Denies back pain Integumentary Integumentary: Reports systems reviewed and no addt'l complaints, except as documented; Denies new lesions Neurologic Neurologic: Reports systems reviewed and no addt'l complaints, except as documented and paresthesias RLE and LLE; Denies focal weakness Psychiatric Psychiatric: Reports systems reviewed and no addt'l complaints, except as documented Endocrine Endocrinology: Reports systems reviewed and no addt'l complaints, except as documented Hematologic/Lymphatic Hematologic/Lymphatic: Reports systems reviewed and no addt'l complaints, exceptas documented and anemia; Denies lymphadenopathy Allergic/Immunologic Allergic/Immunologic: Reports systems reviewed and no addt'l complaints, except as documented Intake Vital Signs 04/10/25 07:55 05/08/25 08:53 05/11/25 10:14 05/11/25 10:17 Height 5 ft 5 in 5 ft 5 in 5 ft 5 in 5 ft 5 in Weight: 73.482 kg 72.575 kg 73.142 kg BMI 26.9 26.6 26.8 BP 131/76 H 114/66 112/68 Blood Pressure Location Rt brachial Lt brachial Lt brachial Position Sitting Sitting Sitting Respiration 16 18 18 Pulse 80 74 Pulse Source Monitor Monitor Temp 97.9 F Temperature Source Temporal Artery Pulse Oximetry (%) 98 Oxygen Delivery Method room air Intake Is patient in pain?: No Allergies No Known Allergies Allergy (Verified 05/11/25 10:15) Medications ?Medication ?Instructions ?Recorded ?Confirmed ?Type calcium carbonate (Calcium 500) 500 mg PO DAILY 05/11/25 History folic acid 0.8 mg capsule 800 mcg PO QDAY 10/13/17 History levothyroxine 75 mcg capsule 75 mcg PO DAILY 10/13/17 05/11/25 History metformin 1,000 mg tablet 1,000 mg PO BID 10/13/17 History multivitamin 1 tab PO QAM 10/13/17 History magnesium oxide 400 mg (241.3 mg 400 mg PO DAILY 10/1605/11/25 History magnesium) tablet aspirin 81 mg tablet,delayed 81 mg PO DAILY heart heal th 10/24/19 05/11/25 History release ferrous sulfate 325 mg (65 mg 325 mg PO TID 01/09/25 0 05/11/25 History iron) tablet (Feosol) gabapentin 300 mg capsule 300 mg PO QHS PRN 05/08/25 0 05/11/25 History glimepiride 1 mg tablet 1 mg PO QDAY 05/08/25 History Have you fallen in the past year?: No Central Venous Access Central Venous Access: No See under HPI See under HPI Exam Physical Exam Narrative ECOG 1 Const alert, oriented x3 and no apparent distress General Appearance: cooperative, comfortable and well kempt HEENT Face and Sinus: normal facial exam General Ear: hearing grossly impaired Eyes General Eye: normal appearance of both eyes Neck no lymphadenopathy and no JVD Lymph Lymphatic: no lymphadenopathy noted Resp clear to auscultation bilaterally Cardio regular rate and regular rhythm Jugular Venous Distention: Negative for JVD Heart Sounds: murmur systolic GI soft to palpation, non-tender and non-distended; Negative for hepatosplenomegaly Back/Spine no thoracic nor lumbar tenderness Extremity no clubbing, cyanosis or edema Skin no rashes or lesions noted Neuro oriented x3, CN's II-XII intact bilaterally, moves all extremities and no focal motor deficits Coordination / Balance: [id number] test normal Speech: speech normal Gait (Neuro): normal gait Psych mental status grossly normal Coding Level of Care Code Off vis,new,level 5 Exam Problem Focused Diagnoses DLBCL (diffuse large B cell lymphoma) C83.30 Assessment and Plan Assessment and Plan (1) DLBCL (diffuse large B cell lymphoma): Status: Acute Orders: Orders CBC W/Diff, Automated Today C85.10 - Unspecified B-cell lymphoma, unspecified site, D50.9 - Iron deficiency anemia, unspecified Ferritin Today C85.10 - Unspecified B-cell lymphoma, unspecified site, D50.9 - Iron deficiency anemia, unspecified Iron+Iron Binding Capacity Today C85.10 - Unspecified B-cell lymphoma, unspecified site, D50.9 - Iron deficiency anemia, unspecified Comprehensive Metabolic Profil Today C85.10 - Unspecified B-cell lymphoma, unspecified site, D50.9 - Iron deficiency anemia, unspecified LDH Today C85.10 - Unspecified B-cell lymphoma, unspecified site, D50.9 - Iron deficiency anemia, unspecified Vitamin B12 Today C85.10 - Unspecified B-cell lymphoma, unspecified site, D50.9- Iron deficiency anemia, unspecified Hepatitis B/C Profile VIII Today C85.10 - Unspecified B-cell lymphoma, unspecified site, D50.9 - Iron deficiency anemia, unspecified Plan 80-year-old female with diffuse large B-cell lymphoma presenting with the patient palpated left breast intramammary enlarged lymph node. Chronic comorbid conditions: Diabetes, grade 1 peripheral neuropathy, aortic valve disease, anemia, history of supraventricular tachycardia, hypothyroidism on replacement therapy, dyslipidemia, status post gastric bypass. Plan: 1. CBC, CMP, LDH, hepatitis B and C remote panels, iron and B12 profiles. 2. Staging with PET/CT. Follow-up after above. Patient was seen with her . Ratna Bell MD Rv Servicer, [facility] Divisions of Medical Oncology & Hematology Department of Internal Medicine [place] [address] This note was generated using a voice recognition system software. Although itwas reviewed by the author prior to finalization, it may still contain incorrectwords, spelling, and punctuation that were not noted when reviewing prior to saving. If a clinically significant typo or inaccurately typed phrase is noted, please notify the author. Clinical Quality Measures Falls Risk Screening/Assistive Devices Have you fallen in the past year?: No 05/11/25 1101 <Electronically signed by Ratna paris MD> Date _ Ratna Bell MD Cosigner Signature: Date (if applicable) CC: Dr. Von Velez MD; Dr. Cachorro Gonzalez MD ~ [facility] Work Phone: Progress note Author Ratna Bell [facility] Note Date/Time May 23, 2025 3:17pm [facility] [place] [id number] OFFICE VISIT Date of Service: 05/23/25 1436 MR#: [id number] Acct: [id number] Name: JULIA PLASCENCIA Rep #: [id number] : 1945 From: Ratna nation MD Age/Sex: 80/F Location: [facility] Status: Signed HPI Subjective Date of Service 05/23/25 Chief Complaint lymphoma History of Present Illness 80-year-old female who felt a painless lump in the left breast in February 2025 and loss 20 pounds of weight despite a preserved appetite. April 04, 2025 diagnostic mammogram: IMPRESSION: Abnormal intramammary lymph node in the left breast at 2 o'clock 9 cm from the nipple. April 04, 2025 breast ultrasound: IMPRESSION: Abnormal intramammary lymph node in the left breast at 2 o'clock 9 cm from the nipple. April 10, 2025 Left breast, mass/lymph node, breast, core biopsy: - Lymphoid tissue negative for carcinoma ? see note and Comment. - Mature adipose tissue. - No breast epithelium observed. Note: This case will be sent to [facility] for formal consultation with the hematopathology division of the Pathology Department, to rule out a lymphoproliferative disorder. A separate report from [facility] will follow. IHCs were obtained and will be reported by the individual pension consultant pathologist. COMMENT: A portion of the tissue was sent in RPMI for flow cytometry to [facility]. The flow cytometry showed ?no immunophenotypic evidence of an abnormal population of B lymphocytes or T lymphocytes. Few B-cells detected?. Diagnosis provided by Dr Ashlyn Baeza ([facility] hematopathology division) This addendum is added to incorporate an outside pathology consultation report. The case was examined at [facility] by Dr. Monte (#[id number]) and the following diagnosis was rendered. A. 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 Diagnosis Comment: As described in detail in the synoptic report below, the assessment is somewhat challenging due to the very scant nature of the specimen. However, overall, there is convincing evidence of a neoplastic large B-cell infiltrate expressing germinal center associated markers (BCL6, CD10) and showing a diffuse infiltrative pattern not associated with follicular dendritic cell meshworks. The findings are consistent with an aggressive B-cell lymphoma. FISH studies have been ordered, and the results will be reported in an addendum. Addendum: No rearrangements of BCL2, BCL6 or MYC genes are detected by FISH. 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 May 16, 2025 PET/CT initial staging: IMPRESSION: 1. Multiple enlarged hypermetabolic mediastinal, right axillary, retroperitoneal, mesenteric, and left pelvic lymph nodes consistent with lymphoma. There is a hypermetabolic nodule in the spleen consistent with lymphoma. [facility] Medical History DLBCL (diffuse large B cell lymphoma) Hypothyroidism Wears partial dentures Wears glasses Post-menopausal Non-smoker [...] 3-4 times per week seatbelt use: always ROS Constitutional Constitutional: Reports fatigue, weight loss and other Details: 20 pounds weightloss in the past 6 months despite preserved appetite ; Denies anorexia, fever(s) or night sweats Eyes Eyes: Reports systems reviewed and no addt'l complaints, except as documented ENT HEENT: Reports systems reviewed and no addt'l complaints, except as documented; Denies mouth lesions Cardiovascular Cardiovascular: Reports systems reviewed and no addt'l complaints, except as documented; Denies chest pain with activity or edema Respiratory/Chest Respiratory/Chest: Reports systems reviewed and no addt'l complaints, except as documented; Denies cough or dyspnea Gastrointestinal Gastrointestinal: Reports systems reviewed and no addt'l complaints, except as documented; Denies abdominal pain, change in bowel habits, hematochezia or melena Genitourinary Genitourinary: Reports systems reviewed and no addt'l complaints, except as documented Musculoskeletal Musculoskeletal: Reports systems reviewed and no addt'l complaints, except as documented; Denies back pain Integumentary Integumentary: Reports systems reviewed and no addt'l complaints, except as documented; Denies new lesions Neurologic Neurologic: Reports systems reviewed and no addt'l complaints, except as documented and paresthesias RLE and LLE; Denies focal weakness Psychiatric Psychiatric: Reports systems reviewed and no addt'l complaints, except as documented Endocrine Endocrinology: Reports systems reviewed and no addt'l complaints, except as documented Hematologic/Lymphatic Hematologic/Lymphatic: Reports systems reviewed and no addt'l complaints, exceptas documented and anemia; Denies lymphadenopathy Allergic/Immunologic Allergic/Immunologic: Reports systems reviewed and no addt'l complaints, except as documented Intake Vital Signs 05/11/25 10:17 05/23/25 14:37 05/23/25 14:38 Height 5 ft 5 in 5 ft 5 in 5 ft 5 in Weight: 73.142 kg 72.631 kg BMI 26.8 26.6 BP 112/68 125/74 H Blood Pressure Location Lt brachial Lt brachial Position Sitting Sitting Respiration 18 18 Pulse 74 78 Pulse Source Monitor Monitor Temp 97.9 F 97.5 F L Temperature Source Temporal Artery Temporal Artery Pulse Oximetry (%) 98 97 Oxygen Delivery Method room air room air Intake Is patient in pain?: No Allergies No Known Allergies Allergy (Verified 05/23/25 14:38) Medications ?Medication ?Instructions ?Recorded ?Confirmed ?Type calcium carbonate (Calcium 500) 500 mg PO DAILY 05/23/25 History folic acid 0.8 mg capsule 800 mcg PO QDAY 10/13/17 History levothyroxine 75 mcg capsule 75 mcg PO DAILY 10/13/17 05/23/25 History metformin 1,000 mg tablet 1,000 mg PO BID 10/13/17 History multivitamin 1 tab PO QAM 10/13/17 History magnesium oxide 400 mg (241.3 mg 400 mg PO DAILY 10/1605/23/25 History magnesium) tablet aspirin 81 mg tablet,delayed 81 mg PO DAILY heart heal th 10/24/19 05/23/25 History release ferrous sulfate 325 mg (65 mg 325 mg PO TID 01/09/25 0 05/23/25 History iron) tablet (Feosol) gabapentin 300 mg capsule 300 mg PO QHS PRN 05/08/25 0 05/23/25 History glimepiride 1 mg tablet 1 mg PO QDAY 05/08/25 History Have you fallen in the past year?: No Central Venous Access Central Venous Access: No CBC, CMP, LDH May 11, 2025 reviewed in EMR. Hepatitis B and C serologies nonreactive I personally reviewed patient's PET/CT images and concur with reported finding Exam Physical Exam Narrative ECOG 1 Const alert and oriented x3 General Appearance: frail Coding Level of Care Code Off vis,est,level 5 Exam Problem Focused Diagnoses Diffuse large B-cell lymphoma of lymph nodes of multiple regions C83.38 Lymphoma site: multiple regions Assessment and Plan Assessment and Plan (1) DLBCL (diffuse large B cell lymphoma): Status: Acute Qualifiers: Lymphoma site: multiple regions Qualified Code(s): 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, lymph nodes of multiple sites Plan 80-year-old female with stage IVB diffuse large B-cell lymphoma presenting with the patient palpated left breast intramammary enlarged lymph node and PET/CT confirms widespread disease above and below the diaphragm.. Chronic comorbid conditions: Diabetes, grade 1 peripheral neuropathy, aortic valve disease, anemia, history of supraventricular tachycardia, hypothyroidism on replacement therapy, dyslipidemia, status post gastric bypass. Plan: Based on NCCN guidelines advise: 1. Systemic chemoimmunotherapy R-CHOP 6 cycles with intent to cure. Interim restaging with PET/CT after 3 cycles. 2. Tumor lysis prophylaxis with cycle 1 include IV fluids days 1 through 3 and allopurinol day 0?9. 3. She had a cardiac echo in February 2025 shows satisfactory cardiac ejection fraction. 4. Central venous access. 5. Anticancer teaching session and insurance authorization for therapy. Follow-up after above. Patient was seen with her . She may elect to receive therapy in [place] where she can have further support from her 2 sons. Ratna Bell MD Rv Servicer, [facility] Divisions of Medical Oncology & Hematology Department of Internal Medicine [place] [phone] This note was generated using a voice recognition system software. Although itwas reviewed by the author prior to finalization, it may still contain incorrectwords, spelling, and punctuation that were not noted when reviewing prior to saving. If a clinically significant typo or inaccurately typed phrase is noted, please notify the author. Clinical Quality Measures Falls Risk Screening/Assistive Devices Have you fallen in the past year?: No 05/23/25 1525 <Electronically signed by Ratna paris MD> Date _ Ratna Bell MD Cosigner Signature: Date (if applicable) CC: Dr. Von Velez MD; Dr. Cachorro Gonzalez MD ~ [facility] Work Phone: Progress note Author Von Velez [facility] Note Date/Time May 29, 2025 8: 53am [facility] [address] [place] [address] OFFICE VISIT Date of Service: 05/29/25 MR#: [id number] Acct: [id number] Name: JULIA PLASCENCIA Rep #: [id number] : 1945 Provider: Dr. Maggi Velez MD Age/Sex: 80/F Location: [facility] Status: Signed Intake Vital Signs 05/25/25 09:18 05/29/25 08:44 Height 5 ft 5 in 5 ft 5 in Weight: 160 lb 159 lb BMI 26.6 26.4 BP 146/75 H 108/66 Blood Pressure Location Lt brachial Rt brachial Position Sitting Sitting Respiration 18 17 Pulse 81 74 Pulse Source Monitor Monitor Temp 98.2 F Pulse Oximetry (%) 99 98 Oxygen Delivery Method room air room air Intake Visit Reasons: DISCUSS PORT PLACEMENT Chief Complaint: discuss port placement Is patient in pain?: No Allergies No Known Allergies Allergy (Verified 05/29/25 08:45) Medications ?Medication ?Instructions ?Recorded ?Confirmed ?Type calcium carbonate (Calcium 500) 500 mg PO DAILY 05/29/25 History folic acid 0.8 mg capsule 800 mcg PO QDAY 10/13/1702/15 History levothyroxine 75 mcg capsule 75 mcg PO DAILY 10/13/17 05/29/25 History metformin 1,000 mg tablet 1,000 mg PO BID 10/13/1702/15 History multivitamin 1 tab PO QAM 10/13/17 History magnesium oxide 400 mg (241.3 mg 400 mg PO DAILY 10/1605/29/25 History magnesium) tablet aspirin 81 mg tablet,delayed 81 mg PO DAILY heart heal th 10/24/19 05/29/25 Histo ry release ferrous sulfate 325 mg (65 mg 325 mg PO TID 01/09/25 1 History iron) tablet (Feosol) gabapentin 300 mg capsule 300 mg PO QHS PRN 05/08/25 1 History glimepiride 1 mg tablet 1 mg PO QDAY 05/08/25 History acyclovir 400 mg tablet 400 mg PO BID #60 tabs 05/2505/29/25 Rx allopurinol 300 mg tablet 300 mg PO .COMPLEX #10 tabs 05/25/25 05/29/25 Rx lidocaine-prilocaine 2.5 %-2.5 % 1 applic topical ONCE PRN port 05/25/25 05/29/25 Rx topical cream access 30 days #30 grams ondansetron 8 mg disintegrating 8 mg PO Q8H PRN nausea and 05/25/25 05/29/25 Rx tablet vomiting #30 tabs prednisone 50 mg tablet 100 mg (2 x 50 mg) PO .COMPL EX #60 05/25/25 05/29/25 Rx tabs prochlorperazine maleate 10 mg 10 mg PO Q6H PRN nausea and 05/25/25 05/29/25 Rx tablet vomiting #30 tabs Have you fallen in the past year?: No PFSH Medical History (Updated 05/29/25 @ 08:44 by Gregory Hernandez) Encounter for education DLBCL (diffuse large B cell lymphoma) Hypothyroidism Wears partial dentures Wears glasses Post-menopausal Non-smoker [...] HPI HPI: Patient is an 80-year-old female 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 I discussed placing a chest port with her at today's visit. ROS General General: Yes weight change and fatigue; No appetite, colon cancer, breast cancer or weakness HEENT HEENT: No difficulty swallowing, eye injury, eye surgery, swollen glands or hoarseness Endo Endocrine: Yes thyroid disease and diabetes mellitus; No thyroid cancer, Hair loss, heat intolerance or cold intolerance Skin Skin: No rash or changing moles Musc Musculoskeletal: No back problems, arthritis, rheumatoid [...] Assessment and Plan Assessment and Plan (1) Encounter for insertion of venous access port: Status: Acute Plan: I discussed placing a right chest port on the patient. I discussed port placement as well as the risks of the procedure such as bleeding, infection, pneumothorax, line infection. Patient understands the risks and is willing to proceed. Von Velez MD Pager: [facility] [address] [place] [address] [address] [place] [address] Office: Coding Level of Care Code Off vis,est,level 3 Diagnoses Encounter for insertion of venous access port Z45.2 Clinical Quality Measures Falls Risk Screening/Assistive Devices Have you fallen in the past year?: No 05/29/25 0928 <Electronically signed by Von lopez MD> Date _ Von Velez MD Cosigner Signature: Date (if applicable) CC: ~ [facility] Work Phone: Progress note Author Ngozi Carly [facility] Note Date/Time June 07, 2025 8 :56am [facility] [place] [address] OFFICE VISIT Date of Service: 06/07/25 0803 MR#: [id number] Acct: [id number] Name: JULIA PLASCENCIA Rep #: [id number] : 1945 From: Ngozi Matamoros [employer]Y HEAT [employer]INET ATTENDANT DRY HEAT [employer]INET ATTENDANT-C Age/Sex: 80/F Location: [facility] Status: Signed HPI Subjective Date of Service 06/07/25 Chief Complaint DLBCL on treatment History of Present Illness 80-year-old female who felt a painless lump in the left breast in February 2025 and loss 20 pounds of weight despite a preserved appetite. April 04, 2025 diagnostic mammogram: IMPRESSION: Abnormal intramammary lymph node in the left breast at 2 o'clock 9 cm from the nipple. April 04, 2025 breast ultrasound: IMPRESSION: Abnormal intramammary lymph node in the left breast at 2 o'clock 9 cm from the nipple. April 10, 2025 Left breast, mass/lymph node, breast, core biopsy: - Lymphoid tissue negative for carcinoma ? see note and Comment. - Mature adipose tissue. - No breast epithelium observed. Note: This case will be sent to [facility] for formal consultation with the hematopathology division of the Pathology Department, to rule out a lymphoproliferative disorder. A separate report from [facility] will follow. IHCs were obtained and will be reported by the individual pension consultant pathologist. COMMENT: A portion of the tissue was sent in RPMI for flow cytometry to [facility]. The flow cytometry showed ?no immunophenotypic evidence of an abnormal population of B lymphocytes or T lymphocytes. Few B-cells detected?. Diagnosis provided by Dr Ashlyn Baeza ([facility] hematopathology division) This addendum is added to incorporate an outside pathology consultation report. The case was examined at [facility] by Dr. Monte (#[id number]) and the following diagnosis was rendered. A. 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 Diagnosis Comment: As described in detail in the synoptic report below, the assessment is somewhat challenging due to the very scant nature of the specimen. However, overall, there is convincing evidence of a neoplastic large B-cell infiltrate expressing germinal center associated markers (BCL6, CD10) and showing a diffuse infiltrative pattern not associated with follicular dendritic cell meshworks. The findings are consistent with an aggressive B-cell lymphoma. FISH studies have been ordered, and the results will be reported in an addendum. Addendum: No rearrangements of BCL2, BCL6 or MYC genes are detected by FISH. 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 May 16, 2025 PET/CT initial staging: IMPRESSION: 1. Multiple enlarged hypermetabolic mediastinal, right axillary, retroperitoneal, mesenteric, and left pelvic lymph nodes consistent with lymphoma. There is a hypermetabolic nodule in the spleen consistent with lymphoma. Interval History Patient is presenting to clinic today accompanied by spouse an adult daughter for an evaluation anticipating she will begin C1 RCHOP. Confirms taking prednisone, acyclovir, allopurinol as advised. Denies any concerns related to today's visit. [facility] Medical History (Updated 06/07/25 @ 08:50 by Ngozi Carroll NP, [employer] ATTENDANT-C) Encounter for antineoplastic chemotherapy and immunotherapy Encounter for education DLBCL (diffuse large B cell lymphoma) Hypothyroidism Wears partial dentures Wears glasses Post-menopausal Non-smoker [...] 3-4 times per week seatbelt use: always ROS ROS Narrative Negative except as documented in the interval HPI Intake Vital Signs 05/25/25 09:18 06/06/25 11:13 06/07/25 08:05 06/07/25 08:13 Height 5 ft 5 in 5 ft 5 in 5 ft 5 in 5 ft 5 in Weight: 160 lb 5 oz BMI 26.6 BP 103/65 Blood Pressure Location Lt brachial Position Sitting Respiration 16 Pulse 71 Pulse Source Monitor Temp 98.5 F Temperature Source Temporal Artery Pulse Oximetry (%) 99 Oxygen Delivery Method room air Intake Is patient in pain?: No Allergies No Known Allergies Allergy (Verified 06/07/25 08:13) Medications ?Medication ?Instructions ?Recorded ?Confirmed ?Type calcium carbonate (Calcium 500) 500 mg PO DAILY 06/07/25 History folic acid 0.8 mg capsule 800 mcg PO QDAY 10/13/17 History levothyroxine 75 mcg capsule 75 mcg PO DAILY 10/13/17 06/07/25 History metformin 1,000 mg tablet 1,000 mg PO BID 10/13/17 History multivitamin 1 tab PO QAM 10/13/17 History magnesium oxide 400 mg (241.3 mg 400 mg PO DAILY 10/1606/07/25 History magnesium) tablet aspirin 81 mg tablet,delayed 81 mg PO DAILY heart heal th 10/24/19 06/07/25 History release ferrous sulfate 325 mg (65 mg 325 mg PO TID 01/09/25 1 History iron) tablet (Feosol) Held on 05/31/25. Instructions: PATIENT HOLDING UNTIL AFTER TREATMENT gabapentin 300 mg capsule 300 mg PO QHS PRN pain 05/0806/07/25 History Held on 05/31/25. Instructions: HOLDING UNTIL AFTER TREATMENT glimepiride 1 mg tablet 1 mg PO QDAY 05/08/25 History acyclovir 400 mg tablet 400 mg PO BID #60 tabs 05/2506/07/25 Rx allopurinol 300 mg tablet 300 mg PO .COMPLEX #10 tabs 05/25/25 06/07/25 Rx lidocaine-prilocaine 2.5 %-2.5 % 1 applic topical ONCE PRN port 05/25/25 06/07/25 Rx topical cream access 30 days #30 grams ondansetron 8 mg disintegrating 8 mg PO Q8H PRN nausea and 05/25/25 06/07/25 Rx tablet vomiting #30 tabs prednisone 50 mg tablet 100 mg (2 x 50 mg) PO .COMPL EX #60 05/25/25 06/07/25 Rx tabs prochlorperazine maleate 10 mg 10 mg PO Q6H PRN nausea and 05/25/25 06/07/25 Rx tablet vomiting #30 tabs Have you fallen in the past year?: No Central Venous Access Central Venous Access: Yes Port/PICC: Port Laboratory Tests 06/07/25 07:43 WBC 6.2 Hgb 11.1 L Hct 34.2 L Plt Count 238 Absolute Neuts (auto) 4.2 Sodium 139 Potassium 4.3 Chloride 105 Carbon Dioxide 23.2 Glucose 119 H Uric Acid Pending Calcium 9.6 Total Bilirubin 0.20 AST 17 ALT 13 Alkaline Phosphatase 86 Albumin 4.0 Exam Physical Exam Narrative ECOG 1 Const alert, oriented x3 and no apparent distress General Appearance: comfortable and well kempt HEENT Face and Sinus: normal facial exam General Ear: hearing grossly impaired Eyes General Eye: normal appearance of both eyes Neck no lymphadenopathy and no JVD Lymph Lymphatic: no lymphadenopathy noted Resp normal respiratory effort and clear to auscultation bilaterally Cardio regular rate and regular rhythm Jugular Venous Distention: Negative for JVD Heart Sounds: murmur systolic GI soft to palpation, non-tender and non-distended; Negative for hepatosplenomegaly Back/Spine no CVA tenderness and no thoracic nor lumbar tenderness Extremity no clubbing, cyanosis or edema Skin no rashes or lesions noted Neuro oriented x3, CN's II-XII intact bilaterally, moves all extremities and no focal motor deficits Speech: speech normal Gait (Neuro): normal gait Psych mental status grossly normal Coding Level of Care Code Off vis,est,level 4 Exam Problem Focused Diagnoses Diffuse large B-cell lymphoma of lymph nodes of multiple regions C83.38 Lymphoma site: multiple regions Encounter for antineoplastic chemotherapy and immunotherapy Z51.11; Z51.12 Assessment and Plan Assessment and Plan (1) DLBCL (diffuse large B cell lymphoma): Status: Acute Qualifiers: Lymphoma site: multiple regions Qualified Code(s): 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, lymph nodes of multiple sites (2) Encounter for antineoplastic chemotherapy and immunotherapy: Status: Acute Orders: Orders CBC W/Diff, Automated 06/12/25 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, lymph nodes of multiple sites Comprehensive Metabolic Profil 06/12/25 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,lymph nodes of multiple sites LDH 06/12/25 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, lymph nodes of multiple sites Uric Acid 06/12/25 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, lymph nodes of multiple sites Plan 80-year-old female with stage IVB diffuse large B-cell lymphoma presenting with the patient palpated left breast intramammary enlarged lymph node and PET/CT confirms widespread disease above and below the diaphragm. Chronic comorbid conditions: Diabetes, grade 1 peripheral neuropathy, aortic valve disease, anemia, history of supraventricular tachycardia, hypothyroidism on replacement therapy, dyslipidemia, status post gastric bypass. Plan: Based on NCCN guidelines advise: 1. Commence with cycle 1 systemic chemoimmunotherapy R-CHOP today, planned for 6 cycles with intent to cure. Interim restaging with PET/CT after 3 cycles. All the patient's concerns were addressed to her satisfaction and she is agreeable to proceed. Confirms she has taken prednisone and supportive medications as prescribed. Will add famotidine. 2. Tumor lysis prophylaxis with cycle 1 include IV fluids days 1 through 3 and allopurinol day 0?9. 3. She had a cardiac echo in February 2025 shows satisfactory cardiac ejection fraction. Return to office 06/12/2025 for toxicity assessment with labs prior and on June 28 for? Cycle 2 R-CHOP. Clinical Quality Measures Falls Risk Screening/Assistive Devices Have you fallen in the past year?: No 06/07/25 0856 <Electronically signed by Ngozi SANDOVALC> Date _ Ngozi KURTZ Cosigner Signature: Date (if applicable) CC: Dr. Cachorro Gonzalez MD ~ [facility] Work Phone: Progress note Author Ratna Bell [facility] Note Date/Time June 12, 2025 1 2:00pm [facility] [place] [address] OFFICE VISIT Date of Service: 06/12/25 1010 MR#: [id number] Acct: [id number] Name: JULIA PLASCENCIA Rep #: [id number] : 1945 From: Rtana nation MD Age/Sex: 80/F Location: [facility] Status: Signed HPI Subjective Date of Service 06/12/25 Chief Complaint DLBCL on treatment History of Present Illness 80-year-old female who felt a painless lump in the left breast in February 2025 and loss 20 pounds of weight despite a preserved appetite. April 04, 2025 diagnostic mammogram: IMPRESSION: Abnormal intramammary lymph node in the left breast at 2 o'clock 9 cm from the nipple. April 04, 2025 breast ultrasound: IMPRESSION: Abnormal intramammary lymph node in the left breast at 2 o'clock 9 cm from the nipple. April 10, 2025 Left breast, mass/lymph node, breast, core biopsy: - Lymphoid tissue negative for carcinoma ? see note and Comment. - Mature adipose tissue. - No breast epithelium observed. Note: This case will be sent to [facility] for formal consultation with the hematopathology division of the Pathology Department, to rule out a lymphoproliferative disorder. A separate report from [facility] will follow. IHCs were obtained and will be reported by the individual pension consultant pathologist. COMMENT: A portion of the tissue was sent in RPMI for flow cytometry to [facility]. The flow cytometry showed ?no immunophenotypic evidence of an abnormal population of B lymphocytes or T lymphocytes. Few B-cells detected?. Diagnosis provided by Dr Ashlyn Baeza ([facility] hematopathology division) This addendum is added to incorporate an outside pathology consultation report. The case was examined at [facility] by Dr. Monte (#[id number]) and the following diagnosis was rendered. A. 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 Diagnosis Comment: As described in detail in the synoptic report below, the assessment is somewhat challenging due to the very scant nature of the specimen. However, overall, there is convincing evidence of a neoplastic large B-cell infiltrate expressing germinal center associated markers (BCL6, CD10) and showing a diffuse infiltrative pattern not associated with follicular dendritic cell meshworks. The findings are consistent with an aggressive B-cell lymphoma. FISH studies have been ordered, and the results will be reported in an addendum. Addendum: No rearrangements of BCL2, BCL6 or MYC genes are detected by FISH. 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 May 16, 2025 PET/CT initial staging: IMPRESSION: 1. Multiple enlarged hypermetabolic mediastinal, right axillary, retroperitoneal, mesenteric, and left pelvic lymph nodes consistent with lymphoma. There is a hypermetabolic nodule in the spleen consistent with lymphoma. Treatment summary and response: R-CHOP June 07, 2025 [facility] Medical History Encounter for antineoplastic chemotherapy and immunotherapy Encounter for education DLBCL (diffuse large B cell lymphoma) Hypothyroidism Wears partial dentures Wears glasses Post-menopausal Non-smoker [...] 3-4 times per week seatbelt use: always ROS Constitutional Constitutional: Reports fatigue; Denies anorexia, fever(s), night sweats or weight loss Eyes Eyes: Reports systems reviewed and no addt'l complaints, except as documented ENT HEENT: Reports systems reviewed and no addt'l complaints, except as documented; Denies mouth lesions Cardiovascular Cardiovascular: Reports systems reviewed and no addt'l complaints, except as documented; Denies chest pain with activity or edema Respiratory/Chest Respiratory/Chest: Reports systems reviewed and no addt'l complaints, except as documented; Denies cough or dyspnea Gastrointestinal Gastrointestinal: Reports systems reviewed and no addt'l complaints, except as documented; Denies abdominal pain, change in bowel habits, hematochezia or melena Genitourinary Genitourinary: Reports systems reviewed and no addt'l complaints, except as documented Musculoskeletal Musculoskeletal: Reports systems reviewed and no addt'l complaints, except as documented and other Details: Had bony aches and pains following growth factor self injection, resolved with as needed Aleve ; Denies back pain Integumentary Integumentary: Reports systems reviewed and no addt'l complaints, except as documented; Denies new lesions Neurologic Neurologic: Reports systems reviewed and no addt'l complaints, except as documented, paresthesias RLE and LLE and other Details: No change in paresthesias ; Denies focal weakness Psychiatric Psychiatric: Reports systems reviewed and no addt'l complaints, except as documented Endocrine Endocrinology: Reports systems reviewed and no addt'l complaints, except as documented Hematologic/Lymphatic Hematologic/Lymphatic: Reports systems reviewed and no addt'l complaints, exceptas documented and anemia; Denies lymphadenopathy Allergic/Immunologic Allergic/Immunologic: Reports systems reviewed and no addt'l complaints, except as documented Intake Vital Signs 06/07/25 08:13 06/12/25 10:11 06/12/25 10:18 Height 5 ft 5 in 5 ft 5 in 5 ft 5 in Weight: 74.616 kg BMI 27.3 BP 130/76 H Blood Pressure Location Lt brachial Position Sitting Respiration 18 Pulse 82 Pulse Source Monitor Temp 97.6 F L Temperature Source Temporal Artery Pulse Oximetry (%) 98 Oxygen Delivery Method room air Intake Is patient in pain?: No Allergies No Known Allergies Allergy (Verified 06/12/25 10:17) Medications ?Medication ?Instructions ?Recorded ?Confirmed ?Type calcium carbonate (Calcium 500) 500 mg PO DAILY 06/12/25 History folic acid 0.8 mg capsule 800 mcg PO QDAY 10/13/17 History levothyroxine 75 mcg capsule 75 mcg PO DAILY 10/13/17 06/12/25 History metformin 1,000 mg tablet 1,000 mg PO BID 10/13/17 History multivitamin 1 tab PO QAM 10/13/17 History magnesium oxide 400 mg (241.3 mg 400 mg PO DAILY 10/1606/12/25 History magnesium) tablet aspirin 81 mg tablet,delayed 81 mg PO DAILY heart heal th 10/24/19 06/12/25 History release ferrous sulfate 325 mg (65 mg 325 mg PO TID 01/09/25 1 History iron) tablet (Feosol) Held on 05/31/25. Instructions: PATIENT HOLDING UNTIL AFTER TREATMENT gabapentin 300 mg capsule 300 mg PO QHS PRN pain 05/0806/12/25 History Held on 05/31/25. Instructions: HOLDING UNTIL AFTER TREATMENT glimepiride 1 mg tablet 1 mg PO QDAY 05/08/25 History acyclovir 400 mg tablet 400 mg PO BID #60 tabs 05/2506/12/25 Rx allopurinol 300 mg tablet 300 mg PO .COMPLEX #10 tabs 05/25/25 06/12/25 Rx lidocaine-prilocaine 2.5 %-2.5 % 1 applic topical ONCE PRN port 05/25/25 06/12/25 Rx topical cream access 30 days #30 grams ondansetron 8 mg disintegrating 8 mg PO Q8H PRN nausea and 05/25/25 06/12/25 Rx tablet vomiting #30 tabs prednisone 50 mg tablet 100 mg (2 x 50 mg) PO .COMPL EX #60 05/25/25 06/12/25 Rx tabs prochlorperazine maleate 10 mg 10 mg PO Q6H PRN nausea and 05/25/25 06/12/25 Rx tablet vomiting #30 tabs Have you fallen in the past year?: No Central Venous Access Central Venous Access: Yes Port/PICC: Port CBC, CMP June 12, 2025 reviewed in EMR Exam Physical Exam Narrative ECOG 1 Const alert, oriented x3 and no apparent distress General Appearance: cooperative, comfortable and well kempt HEENT Face and Sinus: normal facial exam General Ear: hearing grossly impaired Eyes General Eye: normal appearance of both eyes Neck no lymphadenopathy and no JVD Lymph Lymphatic: no lymphadenopathy noted Chest Chest: vascular access Resp clear to auscultation bilaterally Cardio regular rate and regular rhythm Jugular Venous Distention: Negative for JVD Heart Sounds: murmur systolic GI soft to palpation, non-tender and non-distended; Negative for hepatosplenomegaly Back/Spine no thoracic nor lumbar tenderness Extremity no clubbing, cyanosis or edema Skin no rashes or lesions noted Neuro oriented x3, CN's II-XII intact bilaterally, moves all extremities and no focal motor deficits Coordination / Balance: [id number] test normal Speech: speech normal Gait (Neuro): normal gait Psych mental status grossly normal Coding Level of Care Code Off vis,est,level 4 Exam Problem Focused Diagnoses Diffuse large B-cell lymphoma of lymph nodes of multiple regions C83.38 Lymphoma site: multiple regions Assessment and Plan Assessment and Plan (1) DLBCL (diffuse large B cell lymphoma): Status: Acute Qualifiers: Lymphoma site: multiple regions Qualified Code(s): 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, lymph nodes of multiple sites Orders: Orders Magnesium 06/28/25 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, lymph nodes of multiple sites Phosphorus 06/28/25 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, lymph nodes of multiple sites Plan 80-year-old female with stage IVB diffuse large B-cell lymphoma presenting with the patient palpated left breast intramammary enlarged lymph node and PET/CT confirms widespread disease above and below the diaphragm.. Started systemic therapy with R-CHOP June 07, 2025. Tolerated the first cycle without evidence for tumor lysis nor grade 3 or 4 toxicities. Chronic comorbid conditions: Diabetes, grade 1 peripheral neuropathy, aortic valve disease, anemia, history of supraventricular tachycardia, hypothyroidism on replacement therapy, dyslipidemia, status post gastric bypass. Plan: Based on NCCN guidelines advise: 1. continue systemic chemoimmunotherapy R-CHOP 6 cycles with intent to cure. Interim restaging with PET/CT after 3 cycles. Follow-up after above. Patient was seen with her . She may elect to receive therapy in [place] where she can have further support from her 2 sons. Ratna Bell MD Rv Servicer, [facility] Divisions of Medical Oncology & Hematology Department of Internal Medicine [place] [id number] This note was generated using a voice recognition system software. Although itwas reviewed by the author prior to finalization, it may still contain incorrectwords, spelling, and punctuation that were not noted when reviewing prior to saving. If a clinically significant typo or inaccurately typed phrase is noted, please notify the author. Clinical Quality Measures Falls Risk Screening/Assistive Devices Have you fallen in the past year?: No 06/12/25 1205 <Electronically signed by Ratna paris MD> Date _ Ratna Bell MD Cosigner Signature: Date (if applicable) CC: ~ [facility] Work Phone: Reason for referral (narrative)No reason for referral information availableWTriHealth [facility] Work Phone: Reason for Referral Status Reason Specialty Diagnoses / Procedures Referred By Contact Referred To Contact New Request Neurology Diagnoses Right foot drop Sidney Ott MD [address] [phone] Assessments Diagnosis Right foot drop- Primary Other acquired deformity of ankle and foot Advance Directives No Advanced Directives Records Found Advance Directive Response Recorded Date/ Time Living Will Yes October 24, 2019 11:09am Power of Ore Feeder Yes October 23 0 11:09am Advance Directive Response Recorded Date/ Time Living Will Yes October 24, 2019 10:09am Power of Ore Feeder Yes October 23 0 10:09am Advance Directive Response Recorded Date/ Time Do you have a Healthcare Power of Ore Feeder? Yes February 03, 2025 9:14am Advance Directive Response Recorded Date/ Time Do you have a Healthcare Power of Ore Feeder? Yes May 31, 2025 2:40pm Advance Directives on File Yes Octob 2024 9:35am Living Will Yes June 09 9:35am Do you have a Healthcare Power of Ore Feeder? Yes June 09, 2025 9:35am Name of Medical Power of Ore Feeder Aminta patel June 09, 2025 9:35am Advance Directives Yes June 09, 2025 9:35am Advance Directive Response Recorded Date/ Time Do you have a Healthcare Power of Ore Feeder? Yes May 31, 2025 1:40pm Advance Directives on File Yes Novem 2024 9:31am Living Will Yes June 29 9:31am Do you have a Healthcare Power of Ore Feeder? Yes June 29, 2025 9:31am Name of Medical Power of Ore Feeder Aminta patel June 29, 2025 9:31am Advance Directives Yes June 29, 2025 9:31am Chief Complaint and Reason for Visit Chief [...] BREAST MASS April 10, 2025 8: 24am Chief Complaint Admit Date POSSIBLE GI BLEED January 09, 2025 1:32p m MURMUR March 04, 2025 11:2 5am LEFT AXIL MASS April 04, 2025 9: 02am BIRADS 4 April 10, 2025 7: 46am L BREAST MASS April 10, 2025 8: 24am ABN HOLTER (GONZALEZ) May 08 8:33am Reason for Visit Admit Date Anemia January 09, 2025 1:32p m H/O gastric bypass January 09, 2025 1:32p m Left breast mass April 10, 2025 7: 46am Aortic valve stenosis May 08 8:33am Atrial tachycardia May 08, 2025 8:33am B-cell lymphoma May 08, 2025 8:33am Diabetes May 08, 2025 8:33am 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 ure May 08, 2025 8:33am Chief Complaint Admit Date MURMUR March 04, 2025 11:2 5am LEFT AXIL MASS April 04, 2025 9: 02am BIRADS 4 April 10, 2025 7: 46am L BREAST MASS April 10, 2025 8: 24am ABN HOLTER (GONZALEZ) May 08 8:33am B-CELL LYMPHOMA May 11, 2025 10:07am LYMPHOMA May 11, 2025 11:02am Reason for Visit Admit Date Left breast mass April 10, 2025 7: 46am Aortic valve stenosis May 08 8:33am Atrial tachycardia May 08, 2025 8:33am Diabetes May 08, 2025 8:33am 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 ure May 08, 2025 8:33am B-cell lymphoma May 08, 2025 8:33am DLBCL (diffuse large B cell lymphoma) Se ptember 2024 10:07am Chief Complaint Admit Date MURMUR March 04, 2025 11:2 5am LEFT AXIL MASS April 04, 2025 9: 02am BIRADS 4 April 10, 2025 7: 46am L BREAST MASS April 10, 2025 8: 24am ABN HOLTER (GONZALEZ) May 08 8:33am B-CELL LYMPHOMA May 11, 2025 10:07am LYMPHOMA May 16, 2025 7:30am REVIEW PET May 23, 2025 1:57pm Reason for Visit Admit Date Left breast mass April 10, 2025 7: 46am Aortic valve stenosis May 08 8:33am Atrial tachycardia May 08, 2025 8:33am Diabetes May 08, 2025 8:33am 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 ure May 08, 2025 8:33am B-cell lymphoma May 08, 2025 8:33am DLBCL (diffuse large B cell lymphoma) Se ptember 2024 10:07am DLBCL (diffuse large B cell lymphoma) Se ptember 2024 1:57pm Chief Complaint Admit Date MURMUR March 04, 2025 11:2 5am LEFT AXIL MASS April 04, 2025 9: 02am BIRADS 4 April 10, 2025 7: 46am L BREAST MASS April 10, 2025 8: 24am ABN HOLTER (GONZALEZ) May 08 8:33am B-CELL LYMPHOMA May 11, 2025 10:07am LYMPHOMA May 16, 2025 7:30am REVIEW PET May 23, 2025 1:57pm CHEMO ED May 25, 2025 8: 34am Reason for Visit Admit Date Left breast mass April 10, 2025 7: 46am Aortic valve stenosis May 08 8:33am Atrial tachycardia May 08, 2025 8:33am Diabetes May 08, 2025 8:33am 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 ure May 08, 2025 8:33am B-cell lymphoma May 08, 2025 8:33am DLBCL (diffuse large B cell lymphoma) Se ptember 2024 10:07am DLBCL (diffuse large B cell lymphoma) Se ptember 2024 1:57pm DLBCL (diffuse large B cell lymphoma) Oc tober 2024 8:34am Chief Complaint Admit Date MURMUR March 04, 2025 11:2 5am LEFT AXIL MASS April 04, 2025 9: 02am BIRADS 4 April 10, 2025 7: 46am L BREAST MASS April 10, 2025 8: 24am ABN HOLTER (GONZALEZ) May 08 8:33am B-CELL LYMPHOMA May 11, 2025 10:07am LYMPHOMA May 16, 2025 7:30am REVIEW PET May 23, 2025 1:57pm CHEMO ED May 25, 2025 8: 34am DISCUSS PORT PLACEMENT May 29, 2025 8:36am Reason for Visit Admit Date Left breast mass April 10, 2025 7: 46am Aortic valve stenosis May 08 8:33am Atrial tachycardia May 08, 2025 8:33am Diabetes May 08, 2025 8:33am 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 ure May 08, 2025 8:33am B-cell lymphoma May 08, 2025 8:33am DLBCL (diffuse large B cell lymphoma) Se ptember 2024 10:07am DLBCL (diffuse large B cell lymphoma) Se ptember 2024 1:57pm DLBCL (diffuse large B cell lymphoma) Oc tober 2024 8:34am Encounter for education May 25 8:34am Encounter for insertion of venous access port May 29, 2025 8:36am Chief Complaint Admit Date MURMUR March 04, 2025 11:2 5am LEFT AXIL MASS April 04, 2025 9: 02am BIRADS 4 April 10, 2025 7: 46am L BREAST MASS April 10, 2025 8: 24am ABN HOLTER (GONZALEZ) May 08 8:33am B-CELL LYMPHOMA May 11, 2025 10:07am REVIEW PET May 23, 2025 1:57pm CHEMO ED May 25, 2025 8: 34am DISCUSS PORT PLACEMENT May 29, 2025 8:36am Insertion, Vascular Port right poss left June 06, 2025 10:46am Insertion, Vascular Port right poss left June 06, 2025 12:52pm NEW START - LABS - RCHOP June 07, 2 025 7:34am LYMPHOMA June 12, 2025 8 :45am TOX CHECK - LABS June 12, 2025 9 :01am Reason for Visit Admit Date Left breast mass April 10, 2025 7: 46am Aortic valve stenosis May 08 8:33am Atrial tachycardia May 08, 2025 8:33am Diabetes May 08, 2025 8:33am 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 ure May 08, 2025 8:33am B-cell lymphoma May 08, 2025 8:33am DLBCL (diffuse large B cell lymphoma) Se ptember 2024 10:07am DLBCL (diffuse large B cell lymphoma) Se ptember 2024 1:57pm DLBCL (diffuse large B cell lymphoma) Oc tober 2024 8:34am Encounter for education May 25 8:34am Encounter for insertion of venous access port May 29, 2025 8:36am DLBCL (diffuse large B cell lymphoma) Oc tober 2024 7:34am Encounter for antineoplastic chemotherapy and immunotherapy June 07, 2025 7:34am DLBCL (diffuse large B cell lymphoma) Oc tober 2024 9:01am Chief Complaint Admit Date MURMUR March 04, 2025 11:2 5am LEFT AXIL MASS April 04, 2025 9: 02am BIRADS 4 April 10, 2025 7: 46am L BREAST MASS April 10, 2025 8: 24am ABN HOLTER (GONZALEZ) May 08 8:33am B-CELL LYMPHOMA May 11, 2025 10:07am REVIEW PET May 23, 2025 1:57pm CHEMO ED May 25, 2025 8: 34am DISCUSS PORT PLACEMENT May 29, 2025 8:36am Insertion, Vascular Port right poss left June 06, 2025 10:46am Insertion, Vascular Port right poss left June 06, 2025 12:52pm NEW START - LABS - RCHOP June 07, 2 025 7:34am TOX CHECK - LABS June 12, 2025 9 :01am 3 WKS - LABS - RCHOP June 28, 2025 7:32am CHOP June 29, 2025 9 :30am Reason for Visit Admit Date Left breast mass April 10, 2025 7: 46am Aortic valve stenosis May 08 8:33am Atrial tachycardia May 08, 2025 8:33am Diabetes May 08, 2025 8:33am 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 ure May 08, 2025 8:33am B-cell lymphoma May 08, 2025 8:33am DLBCL (diffuse large B cell lymphoma) Se ptember 2024 10:07am DLBCL (diffuse large B cell lymphoma) Se ptember 2024 1:57pm DLBCL (diffuse large B cell lymphoma) Oc tober 2024 8:34am Encounter for education May 25 8:34am Encounter for insertion of venous access port May 29, 2025 8:36am DLBCL (diffuse large B cell lymphoma) Oc tober 2024 7:34am Encounter for antineoplastic chemotherapy and immunotherapy June 07, 2025 7:34am DLBCL (diffuse large B cell lymphoma) Oc tober 2024 9:01am DLBCL (diffuse large B cell lymphoma) No vember 2024 7:32am Encounter for antineoplastic chemotherapy and immunotherapy June 28, 2025 7:32am Family History No Family History Records Found [...] Active Member Role Status Dates Dr. Cachorro Gonzalez MD Family Provider Active Dr. Cachorro Gonzalez MD Primary Care Provider Active Team Status: Inactive Member Role Status Dates Dr. Cachorro Gonzalez MD Primary Care Provider, Attending Provider Active Team Status: Inactive Member Role Status Dates Dr. Cachorro Gonzalez MD Primary Care Provider Active Start: September 06, 2024 End: September 06, 2024 Candie Calderon DRY HEAT CABINET ATTENDANT, [employer]Y HEAT CABINET ATTENDANT-C Attending Provider Active Start: September 06, 2024 End: September 06, 2024 Team Status: Inactive Member Role Status Dates Dr. Cachorro Gonzalez MD Primary Care Provider Active Start: December 28, 2024 End: December 28, 2024 Dr. Cachorro Gonzalez MD Attending Provider Active Start: December 28, 2024 End: December 28, 2024 Dr. Cachorro Gonzalez MD Referring Provider Active Start: December 28, 2024 End: December 28, 2024 Team Status: Inactive Member Role Status Dates Dr. Cachorro Gonzalez MD Primary Care Provider Active Start: January 09, 2025 End: January 09, 2025 Dr. Cachorro Gonzalez MD Referring Provider Active Start: January 09, 2025 End: January 09, 2025 Dr. Von Velez MD Attending Provider Active Start: January 09, 2025 End: January 09, 2025 Team Status: Active Member Role Status Dates Dr. Cachorro Gonzalez MD Primary Care Provider Active Team Status: Inactive Member Role Status Dates Dr. Cachorro Gonzalez MD Primary Care Provider Active Start: February 07, 2025 End: February 07, 2025 Dr. Cachorro Gonzalez MD Referring Provider Active Start: February 07, 2025 End: February 07, 2025 Dr. Von Velez MD Attending Provider Active Start: February 07, 2025 End: February 07, 2025 Team Status: Active Member Role Status Dates Dr. Cachorro Gonzalez MD Primary Care Provider Active Start: February 07, 2025 Dr. Cachorro Gonzalez MD Referring Provider Active Start: February 07, 2025 Dr. Von Velez MD Attending Provider Active Start: February 07, 2025 Dr. Von Velez MD Other Provider Active Start: February 07, 2025 Team Status: Active Member Role/Relationship Status Dates Dr. Cachorro Gonzalez MD Primary Care Provider Active Team Status: Inactive Member Role/Relationship Status Dates Dr. Cachorro Gonzalez MD Primary Care Provider Active Start: December 28, 2024 End: December 28, 2024 Dr. Cachorro Gonzalez MD Attending Provider Active Start: December 28, 2024 End: December 28, 2024 Dr. Cachorro Gonzalez MD Referring Provider Active Start: December 28, 2024 End: December 28, 2024 Team Status: Inactive Member Role/Relationship Status Dates Dr. Cachorro Gonzalez MD Primary Care Provider Active Start: January 09, 2025 End: January 09, 2025 Dr. Cachorro Gonzalez MD Referring Provider Active Start: January 09, 2025 End: January 09, 2025 Dr. Von Velez MD Attending Provider Active Start: January 09, 2025 End: January 09, 2025 Team Status: Inactive Member Role/Relationship Status Dates Dr. Cachorro Gonzalez MD Primary Care Provider Active Start: February 07, 2025 End: February 07, 2025 Dr. Cachorro Gonzalez MD Referring Provider Active Start: February 07, 2025 End: February 07, 2025 Dr. Von Velez MD Attending Provider Active Start: February 07, 2025 End: February 07, 2025 Team Status: Active Member Role/Relationship Status Dates Dr. Cachorro Gonzalez MD Primary Care Provider Active Start: February 07, 2025 Dr. Cachorro Gonzalez MD Referring Provider Active Start: February 07, 2025 Dr. Von Velez MD Attending Provider Active Start: February 07, 2025 Dr. Von Velez MD Other Provider Active Start: February 07, 2025 Team Status: Inactive Member Role/Relationship Status Dates Dr. Cachorro Gonzalez MD Primary Care Provider Active Start: February 23, 2025 End: February 23, 2025 Dr. Cachorro Gonzalez MD Attending Provider Active Start: February 23, 2025 End: February 23, 2025 Dr. Cachorro Gonzalez MD Referring Provider Active Start: February 23, 2025 End: February 23, 2025 Team Status: Active Member Role/Relationship Status Dates Dr. Cachorro Gonzalez MD Primary Care Provider Active Start: March 03, 2025 Dr. Agustin Morataya MD Attending Provider Active S tart: March 03, 2025 Team Status: Inactive Member Role/Relationship Status Dates Dr. Cachorro Gonzalez MD Primary Care Provider Active Start: March 04, 2025 End: March 04, 2025 Dr. Cachorro Gonzalez MD Attending Provider Active Start: March 04, 2025 End: March 04, 2025 Dr. Cachorro Gonzalez MD Referring Provider Active Start: March 04, 2025 End: March 04, 2025 Team Status: Active Member Role/Relationship Status Dates Dr. Cachorro Gonzalez MD Primary Care Provider Active Start: April 04, 2025 Dr. Cachorro Gonzalez MD Attending Provider Active Start: April 04, 2025 Dr. Cachorro Gonzalez MD Referring Provider Active Start: April 04, 2025 Team Status: Inactive Member Role/Relationship Status Dates Dr. Cachorro Gonzalez MD Primary Care Provider Active Start: April 10, 2025 End: April 10, 2025 Dr. Cachorro Gonzalez MD Referring Provider Active Start: April 10, 2025 End: April 10, 2025 Dr. Von Velez MD Attending Provider Active Start: April 10, 2025 End: April 10, 2025 Team Status: Inactive Member Role/Relationship Status Dates Dr. Cachorro Gonzalez MD Primary Care Provider Active Start: April 04, 2025 End: April 04, 2025 Dr. Cachorro Gonzalez MD Attending Provider Active Start: April 04, 2025 End: April 04, 2025 Dr. Cachorro Gonzalez MD Referring Provider Active Start: April 04, 2025 End: April 04, 2025 Team Status: Active Member Role/Relationship Status Dates Dr. Cachorro Gonzalez MD Primary Care Provider Active Start: April 10, 2025 Dr. Von Velez MD Attending Provider Active Start: April 10, 2025 Dr. Von Velez MD Referring Provider Active Start: April 10, 2025 Team Status: Inactive Member Role/Relationship Status Dates Dr. Cachorro Gonzalez MD Primary Care Provider Active Start: April 10, 2025 End: April 10, 2025 Dr. Von Velez MD Attending Provider Active Start: April 10, 2025 End: April 10, 2025 Dr. Von Velez MD Referring Provider Active Start: April 10, 2025 End: April 10, 2025 Team Status: Inactive Member Role/Relationship Status Dates Dr. Cachorro Gonzalez MD Primary Care Provider Active Start: January 09, 2025 End: January 09, 2025 Dr. Cachorro Gonzalez MD Referring Provider Active Start: January 09, 2025 End: January 09, 2025 Dr. Von Velez MD Attending Provider Active Start: January 09, 2025 End: January 09, 2025 Team Status: Inactive Member Role/Relationship Status Dates Dr. Cachorro Gonzalez MD Primary Care Provider Active Start: February 07, 2025 End: February 07, 2025 Dr. Cachorro Gonzalez MD Referring Provider Active Start: February 07, 2025 End: February 07, 2025 Dr. Von Velez MD Attending Provider Active Start: February 07, 2025 End: February 07, 2025 Team Status: Active Member Role/Relationship Status Dates Dr. Cachorro Gonzalez MD Primary Care Provider Active Start: February 07, 2025 Dr. Cachorro Gonzalez MD Referring Provider Active Start: February 07, 2025 Dr. Von Velez MD Attending Provider Active Start: February 07, 2025 Dr. Von Velez MD Other Provider Active Start: February 07, 2025 Team Status: Inactive Member Role/Relationship Status Dates Dr. Cachorro Gonzalez MD Primary Care Provider Active Start: February 23, 2025 End: February 23, 2025 Dr. Cachorro Gonzalez MD Attending Provider Active Start: February 23, 2025 End: February 23, 2025 Dr. Cachorro Gonzalez MD Referring Provider Active Start: February 23, 2025 End: February 23, 2025 Team Status: Active Member Role/Relationship Status Dates Dr. Cachorro Gonzalez MD Primary Care Provider Active Start: March 03, 2025 Dr. Agustin Morataya MD Attending Provider Active S tart: March 03, 2025 Team Status: Inactive Member Role/Relationship Status Dates Dr. Cachorro Gonzalez MD Primary Care Provider Active Start: March 04, 2025 End: March 04, 2025 Dr. Cachorro Gonzalez MD Attending Provider Active Start: March 04, 2025 End: March 04, 2025 Dr. Cachorro Gonzalez MD Referring Provider Active Start: March 04, 2025 End: March 04, 2025 Team Status: Inactive Member Role/Relationship Status Dates Dr. Cachorro Gonzalez MD Primary Care Provider Active Start: April 04, 2025 End: April 04, 2025 Dr. Cachorro Gonzalez MD Attending Provider Active Start: April 04, 2025 End: April 04, 2025 Dr. Cachorro Gonzalez MD Referring Provider Active Start: April 04, 2025 End: April 04, 2025 Team Status: Inactive Member Role/Relationship Status Dates Dr. Cachorro Gonzalez MD Primary Care Provider Active Start: April 10, 2025 End: April 10, 2025 Dr. Cachorro Gonzalez MD Referring Provider Active Start: April 10, 2025 End: April 10, 2025 Dr. Von Velez MD Attending Provider Active Start: April 10, 2025 End: April 10, 2025 Team Status: Inactive Member Role/Relationship Status Dates Dr. Cachorro Gonzalez MD Primary Care Provider Active Start: April 10, 2025 End: April 10, 2025 Dr. Von Velez MD Attending Provider Active Start: April 10, 2025 End: April 10, 2025 Dr. Von Velez MD Referring Provider Active Start: April 10, 2025 End: April 10, 2025 Team Status: Inactive Member Role/Relationship Status Dates Dr. Cachorro Gonzalez MD Primary Care Provider Active Start: May 08, 2025 End: May 08, 2025 Dr. Cachorro Gonzalez MD Referring Provider Active Start: May 08, 2025 End: May 08, 2025 Dr. Leonel Feng MD Attending Provider Active Start: May 08, 2025 End: May 08, 2025 Team Status: Active Member Role/Relationship Status Dates Dr. Cachorro Gonzalez MD Primary care physician Active Team Status: Inactive Member Role/Relationship Status Dates Dr. Cachorro Gonzalez MD Primary care physician Active Start: February 07, 2025 End: February 07, 2025 Dr. Cachorro Gonzalez MD Referring Provider Active Start: February 07, 2025 End: February 07, 2025 Dr. Von Velez MD Attending physician Active Start: February 07, 2025 End: February 07, 2025 Team Status: Active Member Role/Relationship Status Dates Dr. Cachorro Gonzalez MD Primary care physician Active Start: February 07, 2025 Dr. Cachorro Gonzalez MD Referring Provider Active Start: February 07, 2025 Dr. Von Velez MD Attending physician Active Start: February 07, 2025 Dr. Von Velez MD Nurse Practitioner Active Start: February 07, 2025 Team Status: Inactive Member Role/Relationship Status Dates Dr. Cachorro Gonzalez MD Primary care physician Active Start: February 23, 2025 End: February 23, 2025 Dr. Cachorro Gonzalez MD Attending physician Active Start: February 23, 2025 End: February 23, 2025 Dr. Cachorro Gonzalez MD Referring Provider Active Start: February 23, 2025 End: February 23, 2025 Team Status: Active Member Role/Relationship Status Dates Dr. Cachorro Gonzalez MD Primary care physician Active Start: March 03, 2025 Dr. Agustin Morataya MD Attending physician Active Start: March 03, 2025 Team Status: Inactive Member Role/Relationship Status Dates Dr. Cachorro Gonzalez MD Primary care physician Active Start: March 04, 2025 End: March 04, 2025 Dr. Cachorro Gonzalez MD Attending physician Active Start: March 04, 2025 End: March 04, 2025 Dr. Cachorro Gonzalez MD Referring Provider Active Start: March 04, 2025 End: March 04, 2025 Team Status: Inactive Member Role/Relationship Status Dates Dr. Cachorro Gonzalez MD Primary care physician Active Start: April 04, 2025 End: April 04, 2025 Dr. Cachorro Gonzalez MD Attending physician Active Start: April 04, 2025 End: April 04, 2025 Dr. Cachorro Gonzalez MD Referring Provider Active Start: April 04, 2025 End: April 04, 2025 Team Status: Inactive Member Role/Relationship Status Dates Dr. Cachorro Gonzalez MD Primary care physician Active Start: April 10, 2025 End: April 10, 2025 Dr. Cachorro Gonzalez MD Referring Provider Active Start: April 10, 2025 End: April 10, 2025 Dr. Von Velez MD Attending physician Active Start: April 10, 2025 End: April 10, 2025 Team Status: Inactive Member Role/Relationship Status Dates Dr. Cachorro Gonzalez MD Primary care physician Active Start: April 10, 2025 End: April 10, 2025 Dr. Von Velez MD Attending physician Active Start: April 10, 2025 End: April 10, 2025 Dr. Von Velez MD Referring Provider Active Start: April 10, 2025 End: April 10, 2025 Team Status: Inactive Member Role/Relationship Status Dates Dr. Cachorro Gonzalez MD Primary care physician Active Start: May 08, 2025 End: May 08, 2025 Dr. Cachorro Gonzalez MD Referring Provider Active Start: May 08, 2025 End: May 08, 2025 Dr. Leonel Feng MD Attending physician Active Start: May 08, 2025 End: May 08, 2025 Team Status: Inactive Member Role/Relationship Status Dates Dr. Cachorro Gonzalez MD Primary care physician Active Start: May 11, 2025 End: May 11, 2025 Dr. Ratna Bell MD Attending physician Active Start: May 11, 2025 End: May 11, 2025 Dr. Von Velez MD Referring Provider Active Start: May 11, 2025 End: May 11, 2025 Team Status: Active Member Role/Relationship Status Dates Dr. Cachorro Gonzalez MD Primary care physician Active Start: May 11, 2025 Dr. Ratna Bell MD Attending physician Active Start: May 11, 2025 Dr. Ratna Bell MD Referring Provider Active Start: May 11, 2025 Team Status: Active Member Role/Relationship Status Dates Dr. Cachorro Gonzalez MD Primary care physician Active Start: May 16, 2025 Dr. Ratna Bell MD Attending physician Active Start: May 16, 2025 Dr. Ratna Bell MD Referring Provider Active Start: May 16, 2025 Team Status: Inactive Member Role/Relationship Status Dates Dr. Cachorro Gonzalez MD Primary care physician Active Start: May 23, 2025 End: May 23, 2025 Dr. Cachorro Gonzalez MD Referring Provider Active Start: May 23, 2025 End: May 23, 2025 Dr. Ratna Bell MD Attending physician Active Start: May 23, 2025 End: May 23, 2025 Team Status: Inactive Member Role/Relationship Status Dates Dr. Ccahorro Gonzalez MD Primary care physician Active Start: May 25, 2025 End: May 25, 2025 Dr. Cachorro Gonzalez MD Referring Provider Active Start: May 25, 2025 End: May 25, 2025 Ngozi Carroll DRY HEAT CABINET ATTENDANT, DRY HEAT [employer]INET ATTENDANT-C Attending physician Active Start: May 25, 2025 End: May 25, 2025 Team Status: Inactive Member Role/Relationship Status Dates Dr. Cachorro Gonzalez MD Primary care physician Active Start: May 29, 2025 End: May 29, 2025 Dr. Cachorro Gonzalez MD Referring Provider Active Start: May 29, 2025 End: May 29, 2025 Dr. Von Velez MD Attending physician Active Start: May 29, 2025 End: May 29, 2025 Team Status: Inactive Member Role/Relationship Status Dates Dr. Cachorro Gonzalez MD Primary care physician Active Start: February 23, 2025 End: February 23, 2025 Dr. Cachorro Gonzalez MD Attending physician Active Start: February 23, 2025 End: February 23, 2025 Dr. Cachorro Gonzalez MD Referring Provider Active Start: February 23, 2025 End: February 23, 2025 Team Status: Active Member Role/Relationship Status Dates Dr. Cachorro Gonzalez MD Primary care physician Active Start: March 03, 2025 Dr. Agustin Morataya MD Attending physician Active Start: March 03, 2025 Team Status: Inactive Member Role/Relationship Status Dates Dr. Cachorro Gonzaelz MD Primary care physician Active Start: March 04, 2025 End: March 04, 2025 Dr. Cachorro Gonzalez MD Attending physician Active Start: March 04, 2025 End: March 04, 2025 Dr. Cachorro Gonzalez MD Referring Provider Active Start: March 04, 2025 End: March 04, 2025 Team Status: Inactive Member Role/Relationship Status Dates Dr. Cachorro Gonzalez MD Primary care physician Active Start: April 04, 2025 End: April 04, 2025 Dr. Cachorro Gonzalez MD Attending physician Active Start: April 04, 2025 End: April 04, 2025 Dr. Cachorro Gonzalez MD Referring Provider Active Start: April 04, 2025 End: April 04, 2025 Team Status: Inactive Member Role/Relationship Status Dates Dr. Cachorro Gonzalez MD Primary care physician Active Start: April 10, 2025 End: April 10, 2025 Dr. Cachorro Gonzalez MD Referring Provider Active Start: April 10, 2025 End: April 10, 2025 Dr. Von Velez MD Attending physician Active Start: April 10, 2025 End: April 10, 2025 Team Status: Inactive Member Role/Relationship Status Dates Dr. Cachorro Gonzalez MD Primary care physician Active Start: April 10, 2025 End: April 10, 2025 Dr. Von Velez MD Attending physician Active Start: April 10, 2025 End: April 10, 2025 Dr. Von Velez MD Referring Provider Active Start: April 10, 2025 End: April 10, 2025 Team Status: Inactive Member Role/Relationship Status Dates Dr. Cachorro Gonzalez MD Primary care physician Active Start: May 08, 2025 End: May 08, 2025 Dr. Cachorro Gonzalez MD Referring Provider Active Start: May 08, 2025 End: May 08, 2025 Dr. Leonel Feng MD Attending physician Active Start: May 08, 2025 End: May 08, 2025 Team Status: Inactive Member Role/Relationship Status Dates Dr. Cachorro Gonzalez MD Primary care physician Active Start: May 11, 2025 End: May 11, 2025 Dr. Ratna Bell MD Attending physician Active Start: May 11, 2025 End: May 11, 2025 Dr. Von Velez MD Referring Provider Active Start: May 11, 2025 End: May 11, 2025 Team Status: Inactive Member Role/Relationship Status Dates Dr. Cachorro Gonzalez MD Primary care physician Active Start: May 23, 2025 End: May 23, 2025 Dr. Cachorro Gonzalez MD Referring Provider Active Start: May 23, 2025 End: May 23, 2025 Dr. Ratna Bell MD Attending physician Active Start: May 23, 2025 End: May 23, 2025 Team Status: Inactive Member Role/Relationship Status Dates Dr. Cachorro Gonzalez MD Primary care physician Active Start: May 25, 2025 End: May 25, 2025 Dr. Cachorro Gonzalez MD Referring Provider Active Start: May 25, 2025 End: May 25, 2025 Ngozi Carroll DRY HEAT CABINET ATTENDANT, DRY HEAT CABINET ATTENDANT-C Attending physician Active Start: May 25, 2025 End: May 25, 2025 Team Status: Inactive Member Role/Relationship Status Dates Dr. Cachorro Gonzalez MD Primary care physician Active Start: May 29, 2025 End: May 29, 2025 Dr. Cachorro Gonzalez MD Referring Provider Active Start: May 29, 2025 End: May 29, 2025 Dr. Von Velez MD Attending physician Active Start: May 29, 2025 End: May 29, 2025 Team Status: Inactive Member Role/Relationship Status Dates Dr. Cachorro Gonzalez MD Primary care physician Active Start: June 06, 2025 End: June 06, 2025 Dr. Von Velez MD Attending physician Active Start: June 06, 2025 End: June 06, 2025 Dr. Von Velez MD Referring Provider Active Start: June 06, 2025 End: June 06, 2025 Team Status: Active Member Role/Relationship Status Dates Dr. Cachorro Gonzalez MD Primary care physician Active Start: June 06, 2025 Dr. Von Velez MD Attending physician Active Start: June 06, 2025 Dr. Von Velez MD Referring Provider Active Start: June 06, 2025 Dr. Von Velez MD Nurse Practitioner Active Start: June 06, 2025 Team Status: Inactive Member Role/Relationship Status Dates Dr. Cachorro Gonzalez MD Primary care physician Active Start: June 07, 2025 End: June 07, 2025 Dr. Cachorro Gonzalez MD Referring Provider Active Start: June 07, 2025 End: June 07, 2025 Ngozi Carroll DRY HEAT CABINET ATTENDANT, DRY HEAT [employer]INET ATTENDANT-C Attending physician Active Start: June 07, 2025 End: June 07, 2025 Team Status: Active Member Role/Relationship Status Dates Dr. Cachorro Gonzalez MD Primary care physician Active Start: June 12, 2025 Dr. Ratna Bell MD Attending physician Active Start: June 12, 2025 Dr. Ratna Bell MD Referring Provider Active Start: June 12, 2025 Team Status: Inactive Member Role/Relationship Status Dates Dr. Cachorro Gonzalez MD Primary care physician Active Start: June 12, 2025 End: June 12, 2025 Dr. Cachorro Gonzalez MD Referring Provider Active Start: June 12, 2025 End: June 12, 2025 Dr. Ratna Bell MD Attending physician Active Start: June 12, 2025 End: June 12, 2025 Team Status: Active Member Role/Relationship Status Dates Dr. Cachorro Gonzalez MD Primary care physician Active Start: March 03, 2025 Dr. Agustin Morataya MD Attending physician Active Start: March 03, 2025 Team Status: Inactive Member Role/Relationship Status Dates Dr. Cachorro Gonzalez MD Primary care physician Active Start: March 04, 2025 End: March 04, 2025 Dr. Cachorro Gonzalez MD Attending physician Active Start: March 04, 2025 End: March 04, 2025 Dr. Cachorro Gonzalez MD Referring Provider Active Start: March 04, 2025 End: March 04, 2025 Team Status: Inactive Member Role/Relationship Status Dates Dr. Cachorro Gonzalez MD Primary care physician Active Start: April 04, 2025 End: April 04, 2025 Dr. Cachorro Gonzalez MD Attending physician Active Start: April 04, 2025 End: April 04, 2025 Dr. Cachorro Gonzalez MD Referring Provider Active Start: April 04, 2025 End: April 04, 2025 Team Status: Inactive Member Role/Relationship Status Dates Dr. Cachorro Gonzalez MD Primary care physician Active Start: April 10, 2025 End: April 10, 2025 Dr. Cachorro Gonzalez MD Referring Provider Active Start: April 10, 2025 End: April 10, 2025 Dr. Von Velez MD Attending physician Active Start: April 10, 2025 End: April 10, 2025 Team Status: Inactive Member Role/Relationship Status Dates Dr. Cachorro Gonzalez MD Primary care physician Active Start: April 10, 2025 End: April 10, 2025 Dr. Von Velez MD Attending physician Active Start: April 10, 2025 End: April 10, 2025 Dr. Von Velez MD Referring Provider Active Start: April 10, 2025 End: April 10, 2025 Team Status: Inactive Member Role/Relationship Status Dates Dr. Cachorro Gonzalez MD Primary care physician Active Start: May 08, 2025 End: May 08, 2025 Dr. Cachorro Gonzalez MD Referring Provider Active Start: May 08, 2025 End: May 08, 2025 Dr. Leonel Feng MD Attending physician Active Start: May 08, 2025 End: May 08, 2025 Team Status: Inactive Member Role/Relationship Status Dates Dr. Cachorro Gonzalez MD Primary care physician Active Start: May 11, 2025 End: May 11, 2025 Dr. Ratna Bell MD Attending physician Active Start: May 11, 2025 End: May 11, 2025 Dr. Vno Velez MD Referring Provider Active Start: May 11, 2025 End: May 11, 2025 Team Status: Inactive Member Role/Relationship Status Dates Dr. Cachorro Gonzalez MD Primary care physician Active Start: May 23, 2025 End: May 23, 2025 Dr. Cachorro Gonzalez MD Referring Provider Active Start: May 23, 2025 End: May 23, 2025 Dr. Ratna Bell MD Attending physician Active Start: May 23, 2025 End: May 23, 2025 Team Status: Inactive Member Role/Relationship Status Dates Dr. Cachorro Gonzalez MD Primary care physician Active Start: May 25, 2025 End: May 25, 2025 Dr. Cachorro Gonzalez MD Referring Provider Active Start: May 25, 2025 End: May 25, 2025 Ngozi Carroll DRY HEAT CABINET ATTENDANT, DRY HEAT CABINET ATTENDANT-C Attending physician Active Start: May 25, 2025 End: May 25, 2025 Team Status: Inactive Member Role/Relationship Status Dates Dr. Cachorro Gonzalez MD Primary care physician Active Start: May 29, 2025 End: May 29, 2025 Dr. Cachorro Gonzalez MD Referring Provider Active Start: May 29, 2025 End: May 29, 2025 Dr. Von Velez MD Attending physician Active Start: May 29, 2025 End: May 29, 2025 Team Status: Inactive Member Role/Relationship Status Dates Dr. Cachorro Gonzalez MD Primary care physician Active Start: June 06, 2025 End: June 06, 2025 Dr. Von Velez MD Attending physician Active Start: June 06, 2025 End: June 06, 2025 Dr. Von Velez MD Referring Provider Active Start: June 06, 2025 End: June 06, 2025 Team Status: Active Member Role/Relationship Status Dates Dr. Cachorro Gonzalez MD Primary care physician Active Start: June 06, 2025 Dr. Von Velez MD Attending physician Active Start: June 06, 2025 Dr. Von Velez MD Referring Provider Active Start: June 06, 2025 Dr. Von Velez MD Nurse Practitioner Active Start: June 06, 2025 Team Status: Inactive Member Role/Relationship Status Dates Dr. Cachorro Gonzalez MD Primary care physician Active Start: June 07, 2025 End: June 07, 2025 Dr. Cachorro Gonzalez MD Referring Provider Active Start: June 07, 2025 End: June 07, 2025 Ngozi Carroll NP, DRY HEAT [employer]IN[employer] ATTENDANT-C Attending physician Active Start: June 07, 2025 End: June 07, 2025 Team Status: Inactive Member Role/Relationship Status Dates Dr. Cachorro Gonzalez MD Primary care physician Active Start: June 12, 2025 End: June 12, 2025 Dr. Cachorro Gonzalez MD Referring Provider Active Start: June 12, 2025 End: June 12, 2025 Dr. Ratna Bell MD Attending physician Active Start: June 12, 2025 End: June 12, 2025 Team Status: Inactive Member Role/Relationship Status Dates Dr. Cachorro Gonzalez MD Primary care physician Active Start: June 28, 2025 End: June 28, 2025 Dr. Cachorro Gonzalez MD Referring Provider Active Start: June 28, 2025 End: June 28, 2025 Ngozi Carroll DRY HEAT CABINET ATTENDANT, DRY HEAT CABINET ATTENDANT-C Attending physician Active Start: June 28, 2025 End: June 28, 2025 Team Status: Active Member Role/Relationship Status Dates Dr. Cachorro Gonzalez MD Primary care physician Active Start: June 29, 2025 Dr. Ratna Bell MD Attending physician Active Start: June 29, 2025 Dr. Ratna Bell MD Referring Provider Active Start: June 29, 2025 INFORMATION SOURCE (unrecogn ized section and content) DATE CREATED AUTHOR 05/05/2025 [facility] DATE CREATED AUTHOR AUTHOR'S AURY LUTHERMAHAD 07/02/[address] [facility] FOR RECORDS PERTAINING TO PATIENTS WHO [...] BE BASED ON THE PRIMARY CLINICAL RECORDS. [employer] provides no warranty or guarantee of the accuracy or completeness of information in this document.
[2025-08-14 21:29] LABS: Differential Indicated MANUAL DIFF
[2025-08-14 21:38] LABS: Neutrophil-Band 1 % (0-5); Neutrophil-Segmented 80 % (47-70); Total Cells Counted 100 (MANUAL DIFF)
[2025-08-14 21:40] LABS: Scan Smear per Review Criteria MANUAL DIFF
[2025-08-14 21:41] LABS: Anisocytosis 2+; Macrocytosis 1+; Microcytosis 1+
[2025-08-14 21:42] LABS: Burr Cells RARE
[2025-08-14 21:51] LABS: AST(SGOT) 12 U/L (<=31); Alanine Aminotransfer ALT/SGPT 14 U/L (<=34); Albumin, Serum 3.5 g/dL (3.4-4.8); Alkaline Phosphatase 73 U/L (35-104); Anion Gap 12 (7-18); BUN 31 mg/dL (4-19); BUN/Creat Ratio 63.2 RATIO (10-20); Bilirubin, Direct 0.13 mg/dL (0.00-0.30); Calcium,Total 8.6 mg/dL (7.6-11.0); Carbon Dioxide 21.9 mmol/L (20.0-29.0); Chloride 98 mmol/L (96-106); Estimated Creatinine Clearance 54.89 ml/min (50-250); Globulin 1.5 g/dL (2.2-4.2); Glucose 224 mg/dL (70-99); Potassium 3.9 mmol/L (3.5-5.1)
[2025-08-14 22:14] LABS: Ferritin 366 ng/mL (22-378); Iron 102 ug/dL (50-170); LDH 195 U/L (84-246)
--- OUTSIDE RECORDS SUMMARY | 2025-08-14 22:25 | XMS RPT_ITS | CCD ---
Author Organization [facility] CliniSyma Care Team Providers Care Recruit Instructor Name Role Phone Unavailable Primary Care Provider Dejah Gonzalez MD, Dr. Ivory Primary Care Provider Yumiko FINANCIAL ANALYST INTERN-C, Candie Attending Provider Devonte PALACIOS, Dr. Ivory Attending Provider Devonte PALACIOS, Dr. Ivory Referring Provider Devonte PALACIOS, Dr. Ivory Primary Care Provider Agustin PALACIOS, Dr. Longoria Attending Provider Agustin PALACIOS, Dr. Longoria Other Provider Rafia PALACIOS, Dr. Velez Attending Provider Agustin PALACIOS, Dr. Longoria Referring Provider Devonte PALACIOS, Dr. Ivory Primary Care Provider Devonte PALACIOS, Dr. Ivory Referring Provider Devonte PALACIOS, Dr. Ivory Attending Provider Jung PALACIOS, Dr. Castaneda Attending Provider Devonte PALACIOS, Dr. Ivory Primary Care Physician Devonte PALACIOS, Dr. Ivory Referring Provider Agustin PALACIOS, Dr. Longoria Attending Physician Agustin PALACIOS, Dr. Longoria Nurse Practitioner Devonte PALACIOS, Dr. Ivory Attending Physician Rafia PALACIOS, Dr. Velez Attending Physician Jung PALACIOS, Dr. Castaneda Attending Physician Arabella PALACIOS, Dr. Segundo Attending Physician Arabella PALACIOS, Dr. Segundo Referring Provider Arabella PALACIOS, Dr. Segundo Referring Provider Carly FINANCIAL ANALYST INTERN-C, Ngozi Attending Physician Devonte PALACIOS, Dr. Ivory Primary Care Physician Devonte PALACIOS, Dr. Ivory Referring Provider Agustin PALACIOS, Dr. Longoria Attending Physician Agustin PALACIOS, Dr. Longoria Nurse Practitioner [phone] Arabella PALACIOS, Dr. Segundo Referring Provider Devonte PALACIOS, Dr. Ivory Primary Care Physician Rafia PALACIOS, Dr. Velez Attending Physician Devonte PALACIOS, Dr. Ivory Attending Physician Devonte PALACIOS, Dr. Ivory Referring Provider Agustin PALACIOS, Dr. Longoria Attending Physician Agustin PALACIOS, Dr. Longoria Referring Provider Jung PALACIOS, Dr. Castaneda Attending Physician Arabella PALACIOS, Dr. Segundo Attending Physician Carly FINANCIAL ANALYST INTERN-C, Ngozi Attending Physician Agustin PALACIOS, Dr. Longoria Nurse Practitioner [phone] Arabella PALACIOS, Dr. Segundo Referring Provider Von [...] Unavailable Gonzalez, Cachorro Primary Care Unavailable Carly FINANCIAL ANALYST INTERN, Ngozi Attending Unavailable Gonzalez, Cachorro Primary Care [...] Care Unavailable Isckarus, Ratna Attending Unavailable Carly FINANCIAL ANALYST INTERN, Ngozi Attending Unavailable Gonzalez, Cachorro Primary Care Unavailable Gonzalez, Cachorro Referring Unavailable Gonzalez, Cachorro Referring Unavailable Gonzalez, Cachorro Primary Care Unavailable Calabretta, Von Attending Unavailable Carly FINANCIAL ANALYST INTERN, Ngzoi Attending Unavailable Gonzalez, Cachorro Primary Care Unavailable [...] Urine Cultureon 07-01-2025 [facility] Staphylococcus xylos us [place] Count 25,000-50,000 Staphylococcus xylosus: REACTION cefOXitin Susc Islt Doxycycline Islt SHAY 4 S Clindamycin.induced Susc Islt NEG Gentamicin Islt SHAY <=0.5 S Linezolid Islt SHAY 2 S Nitrofurantoin Islt SHAY <=16 S Oxacillin Susc Islt S Tetracycline Islt SHAY >=16 R TMP SMX Islt SHAY <=10 S Vancomycin Islt SHAY <=0.5 S Normal [facility] Comment on above: Performed By: #### M 100.7360 ####[facility] [address] [place], [place], [id number] Bilirubin Test strip Ql (U)O rdered By: Ngozi Carroll on 06-29-2025 Bilirubin Ql (U) Negative Negative [facility] Ketones Test strip Ql (U)Ord ered By: Ngozi Carroll on 06-29-2025 Ketones Ql (U) 5 mg/dl High Negative [facility] Microscopic analysis of urin e for red blood cells (RBC)Ordered By: Ngozi Carroll on 06-29-2025 Microscopic analysis of urine for red blood cells (RBC) 0 SEEN /hpf 0-5 [facility] Mucus LM Ql (Urine sed)Order ed By: Ngozi Carroll on 06-29-2025 Mucus Ql (Urine sed) 0 SEEN /hpf [facility] Nitrite Test strip Ql (U)Ord ered By: Ngozi Carroll on 06-29-2025 Nitrite Ql (U) Negative Negative [facility] Protein Test strip Ql (U)Ord ered By: Ngozi Carroll on 06-29-2025 Protein Ql (U) 15 mg/dl High Negative [facility] Squamous epithelial cells de tection in urine sediment by light microscopyOrdered By: Ngozi Carroll on 06-29-2025 Epithelial cells.squamous LM Ql (Urine sed) 0 SEEN /hpf 5-10 [facility] Urinalysis, Completeon 06-29 WBC 50-100 SEEN Normal 0-5 [facility] Comment on above: Order Comment: COLLE CTOR TO SPECIFY Performed By: #### L 179.7421, L501.1400, L100.0100, L500.4050 #### [facility] [address] [place], [address] BACTERIA 0 SEEN Normal None Seen [facility] Comment on above: Order Comment: COLLE CTOR TO SPECIFY Performed By: #### L 504.2610, L501.1400, L100.0100, L500.4050 #### [facility] [address] [place], [address] EPI,SQUAMOUS 0 SEEN Normal 5-10 [facility] Comment on above: Order Comment: COLLE CTOR TO SPECIFY Performed By: #### L 504.2610, L501.1400, L100.0100, L500.4050 #### [facility] [address] [place], [address] Mucus Ql (Urine sed) 0 SEEN Normal [facility] Comment on above: Order Comment: COLLE CTOR TO SPECIFY Performed By: #### L 504.2610, L501.1400, L100.0100, L500.4050 #### [facility] [address] [place], [address] RBC 0 SEEN Normal 0-5 [facility] Comment on above: Order Comment: COLLE CTOR TO SPECIFY Performed By: #### L 504.2610, L501.1400, L100.0100, L500.4050 #### [facility] [address] [place], [address] BACTERIA Normal None Seen [facility] Comment on above: Order Comment: CLEAN CATCH Result Comment: DUPL ICATE Performed By: #### L 400.0001 ####[facility] [address] [place], [address] BILIRUBIN URINE Normal Negative [facility] Comment on above: Order Comment: CLEAN CATCH Result Comment: DUPL ICATE Performed By: #### L 400.0001 ####[facility] [address] [place], [address] Clarity (U) Normal Clear [facility] Comment on above: Order Comment: CLEAN CATCH Result Comment: DUPL ICATE Performed By: #### L 400.0001 ####[facility] [address] [place], [address] Color (U) Normal Yellow [facility] Comment on above: Order Comment: CLEAN CATCH Result Comment: DUPL ICATE Performed By: #### L 400.0001 ####[facility] [address] [place], [address] EPI,SQUAMOUS Normal 5-10 [facility] Comment on above: Order Comment: CLEAN CATCH Result Comment: DUPL ICATE Performed By: #### L 400.0001 ####[facility] [address] [place], [address] GLUCOSE, UR Normal Normal [facility] Comment on above: Order Comment: CLEAN CATCH Result Comment: DUPL ICATE Performed By: #### L 400.0001 ####[facility] [address] [place], [address] KETONE UR Normal Negative [facility] Comment on above: Order Comment: CLEAN CATCH Result Comment: DUPL ICATE Performed By: #### L 400.0001 ####[facility] [address] [place], [address] LEUK ESTERASE Normal Negative [facility] Comment on above: Order Comment: CLEAN CATCH Result Comment: DUPL ICATE Performed By: #### L 400.0001 ####[facility] [address] [place], [address] Mucus Ql (Urine sed) Normal [facility] Comment on above: Order Comment: CLEAN CATCH Result Comment: DUPL ICATE Performed By: #### L 400.0001 ####[facility] [address] [place], [address] Nitrite Ql (U) Normal Negative [facility] Comment on above: Order Comment: CLEAN CATCH Result Comment: DUPL ICATE Performed By: #### L 400.0001 ####[facility] [address] [place], [address] OCCULT BLOOD-UR Normal Negative [facility] Comment on above: Order Comment: CLEAN CATCH Result Comment: DUPL ICATE Performed By: #### L 400.0001 ####[facility] [address] [place], [address] pH UR Normal 5.0 - 8.0 [facility] Comment on above: Order Comment: CLEAN CATCH Result Comment: DUPL ICATE Performed By: #### L 400.0001 ####[facility] [address] [place], [address] PROT DIPSTX Normal Negative [facility] Comment on above: Order Comment: CLEAN CATCH Result Comment: DUPL ICATE Performed By: #### L 400.0001 ####[facility] [address] [place], [address] RBC Normal 0-5 [facility] Comment on above: Order Comment: CLEAN CATCH Result Comment: DUPL ICATE Performed By: #### L 400.0001 ####[facility] [address] [place], [address] SP.GR. DIPSTX Normal 1.002-1.03 0 [facility] Comment on above: Order Comment: CLEAN CATCH Result Comment: DUPL ICATE Performed By: #### L 400.0001 ####[facility] [address] [place], [address] UR Preservative Normal [facility] Comment on above: Order Comment: CLEAN CATCH Result Comment: DUPL ICATE Performed By: #### L 400.0001 ####[facility] [address] [place], [address] UROBILI Normal Normal [facility] Comment on above: Order Comment: CLEAN CATCH Result Comment: DUPL ICATE Performed By: #### L 400.0001 ####[facility] [address] [place], [place], [address] WBC Normal 0-5 [facility] Comment on above: Order Comment: CLEAN CATCH Result Comment: DUPL ICATE Performed By: #### L 400.0001 ####[facility] [address] [place], [place], [id number] Urine clarityOrdered By: Jeaneth Carroll on 06-29-2025 Clarity (U) Sl. Cloudy Clear [facility] Urine color determinationOrd ered By: Ngozi Carroll on 06-29-2025 Color (U) Yellow Yellow [facility] Urine glucose detectionOrder ed By: Ngozi Carroll on 06-29-2025 Glucose Ql (U) Normal mg/dl Normal [facility] Urine leukocyte esterase det ection by dipstickOrdered By: Ngozi Carroll on 06-29-2025 Leukocyte esterase Test strip Ql (U) 500 /ul High Negative [facility] Urine pHOrdered By: Ngozi lee on 06-29-2025 pH (U) 6.0 [pH] 5.0 - 8.0 [facility] Urine sediment bacteria coun t by microscopy (number/high power field)Ordered By: Ngozi Carroll on 06-29-2025 Bacteria LM.HPF (Urine sed) [#/Area] 0 /[HPF] None Seen [facility] Urine specific gravity measu rementOrdered By: Ngozi Carroll on 06-29-2025 Specific gravity (U) [Rel density] 1.015 1.002-1.03 0 [facility] Urine urobilinogen measureme ntOrdered By: Ngozi Carroll on 06-29-2025 Urobilinogen Ql (U) Normal mg/dl Normal [facility] White blood cell countOrdere d By: Ngozi Carroll on 06-29-2025 White blood cell count 50-100 SEEN /hpf 0-5 [facility] Absolute lymphocyte countOrd ered By: Ratna Bell on 06-28-2025 Lymphocytes Auto (Unsp spec) [#/Vol] 0.79 10*3/uL Low 0.83-4.51 [facility] Absolute neutrophil countOrd ered By: Ratna Bell on 06-28-2025 Neutrophils (Bld) [#/Vol] 5.6 10*3/uL 2.0-7.7 [facility] Anion gap in Serum or Plasma Ordered By: Ratna Bell on 06-28-2025 Anion gap [Moles/Vol] 11 mmol/L 5-15 [facility] Automated lymphocyte count a s percentage of total leukocytesOrdered By: Ratna Bell on 06-28-2025 Lymphocytes/100 WBC Auto (Unsp spec) 11.1 % Low 19-41 [facility] BUN/creatinine ratioOrdered By: [facility] on 06-28-2025 Urea nitrogen/Creatinine [Mass ratio] 23.7 mg/mg High 10-20 [facility] Basophil percentageOrdered B y: Ratna Bell on 06-28-2025 Basophils/100 WBC (Bld) 0.8 % 0-1 [facility] Bilirubin, totalOrdered By: Ratna Bell on 06-28-2025 Bilirubin [Mass/Vol] 0.25 mg/dL 0.00-1.30 [facility] CBC W/Diff, Automatedon Absolute Lymph 0.79 X10 3/uL Low 0.83-4.51 [facility] Comment on above: Performed By: #### L 504.2610, L501.1400, L100.0100, L500.4050 #### [facility] [address] [place], [address] Absolute Neut 5.6 X10 3/uL Normal 2.0-7.7 [facility] Comment on above: Performed By: #### L 504.2610, L501.1400, L100.0100, L500.4050 #### [facility] [address] [place], [address] Basophils/100 WBC (Bld) 0.8 % Normal 0-1 [facility] Comment on above: Performed By: #### L 504.2610, L501.1400, L100.0100, L500.4050 #### [facility] [address] [place], [address] Eosinophils/100 WBC (Bld) 0.8 % Normal 0-5 [facility] Comment on above: Performed By: #### L 504.2610, L501.1400, L100.0100, L500.4050 #### [facility] [address] [place], [address] Erythrocyte distribution width (RBC) [Ratio] 18.2 % High 11.6-14.6 [facility] Comment on above: Performed By: #### L 504.2610, L501.1400, L100.0100, L500.4050 #### [facility] [address] [place], [address] Hematocrit (Bld) [Volume fraction] 33.1 % Low 37-47 [facility] Comment on above: Performed By: #### L 504.2610, L501.1400, L100.0100, L500.4050 #### [facility] [address] [place], [address] Hemoglobin (Bld) [Mass/Vol] 11.1 g/dL Low 12.0-15.0 [facility] Comment on above: Performed By: #### L 504.2610, L501.1400, L100.0100, L500.4050 #### [facility] [address] [place], [address] IG% 0.300 Normal 0.0-0.9 [facility] Comment on above: Result Comment: IG% - Immature Granulocytes (promyelocytes, myelocytes and metamyelocytes) > 1% indicates that a LEFT SHIFT is Present. Performed By: #### L 504.2610, L501.1400, L100.0100, L500.4050 #### [facility] [address] [place], [address] Lymphocytes/100 WBC (Bld) 11.1 % Low 19-41 [facility] Comment on above: Performed By: #### L 504.2610, L501.1400, L100.0100, L500.4050 #### [facility] [address] [place], [address] MCH (RBC) [Entitic mass] 28.6 pg Normal 27.0-32.0 [facility] Comment on above: Performed By: #### L 504.2610, L501.1400, L100.0100, L500.4050 #### [facility] [address] [place], [address] MCHC (RBC) [Mass/Vol] 33.5 g/dL Normal 32-36 [facility] Comment on above: Performed By: #### L 504.2610, L501.1400, L100.0100, L500.4050 #### [facility] [address] [place], [address] MCV (RBC) [Entitic vol] 85.3 fL Normal 81-99 [facility] Comment on above: Performed By: #### L 504.2610, L501.1400, L100.0100, L500.4050 #### [facility] [address] [place], [address] Monocytes/100 WBC (Bld) 8.5 % Normal 0-10 [facility] Comment on above: Performed By: #### L 504.2610, L501.1400, L100.0100, L500.4050 #### [facility] [address] [place], [address] Neutrophils/100 WBC (Bld) 78.5 % High 47-70 [facility] Comment on above: Performed By: #### L 504.2610, L501.1400, L100.0100, L500.4050 #### [facility] [address] [place], [address] Nucleated RBC (Bld) [#/Vol] 0 10*3/uL Normal 0-5 [facility] Comment on above: Performed By: #### L 504.2610, L501.1400, L100.0100, L500.4050 #### [facility] [address] [place], [address] Platelet mean volume (Bld) [Entitic vol] 10.1 fL Normal 6.2-12.0 [facility] Comment on above: Performed By: #### L 504.2610, L501.1400, L100.0100, L500.4050 #### [facility] [address] [place], [address] Platelets (Bld) [#/Vol] 298 10*3/uL Normal 150-450 [facility] Comment on above: Performed By: #### L 504.2610, L501.1400, L100.0100, L500.4050 #### [facility] [address] [place], [address] RBC (Bld) [#/Vol] 3.88 10*6/uL Low 4.2-5.4 [facility] Comment on above: Performed By: #### L 504.2610, L501.1400, L100.0100, L500.4050 #### [facility] [address] [place], [address] RDW SD 51.5 fl High 35.1-43.9 [facility] Comment on above: Performed By: #### L 504.2610, L501.1400, L100.0100, L500.4050 #### [facility] [address] [place], [address] WBC (Bld) [#/Vol] 7.1 10*3/uL Normal 4.4-11.0 [facility] Comment on above: Performed By: #### L 504.2610, L501.1400, L100.0100, L500.4050 #### [facility] [address] [place], [address] Absolute Neut Normal 2.0-7.7 [facility] Comment on above: Result Comment: Canc elled via OM: [employer] (not Truxim[employer]) per Insurance Performed By: #### L 504.2610, L501.1400, L100.0100, L500.4050 #### [facility] [address] [place], [address] Result Comment: DUPL ICATE ORDER HCT Normal 37-47 [facility] Comment on above: Result Comment: Canc elled via OM: [employer] (not [employer]) per Insurance Performed By: #### L 504.2610, L501.1400, L100.0100, L500.4050 #### [facility] [address] [place], [address] Result Comment: DUPL ICATE ORDER HGB Normal 12.0-15.0 [facility] Comment on above: Result Comment: Canc elled via OM: [employer] (not [employer]) per Insurance Performed By: #### L 504.2610, L501.1400, L100.0100, L500.4050 #### [facility] [address] [place], [address] Result Comment: DUPL ICATE ORDER MCH Normal 27.0-32.0 [facility] Comment on above: Result Comment: Canc elled via OM: [employer] (not [employer]) per Insurance Performed By: #### L 504.2610, L501.1400, L100.0100, L500.4050 #### [facility] [address] [place], [address] Result Comment: DUPL ICATE ORDER MCHC Normal 32-36 [facility] Comment on above: Result Comment: Canc elled via OM: [employer] (not [employer]) per Insurance Performed By: #### L 504.2610, L501.1400, L100.0100, L500.4050 #### [facility] [address] [place], [address] Result Comment: DUPL ICATE ORDER MCV Normal 81-99 [facility] Comment on above: Result Comment: Canc elled via OM: [employer] (not [employer]) per Insurance Performed By: #### L 504.2610, L501.1400, L100.0100, L500.4050 #### [facility] [address] [place], [address] Result Comment: DUPL ICATE ORDER NEUT% Normal 47-70 [facility] Comment on above: Result Comment: Canc elled via OM: [employer] (not [employer]) per Insurance Performed By: #### L 504.2610, L501.1400, L100.0100, L500.4050 #### [facility] [address] [place], [address] Result Comment: DUPL ICATE ORDER PLT Normal 150-450 [facility] Comment on above: Result Comment: Canc elled via OM: [employer] (not [employer]) per Insurance Performed By: #### L 504.2610, L501.1400, L100.0100, L500.4050 #### [facility] [address] [place], [address] Result Comment: DUPL ICATE ORDER RBC Normal 4.2-5.4 [facility] Comment on above: Result Comment: Canc elled via OM: [employer] (not [employer]) per Insurance Performed By: #### L 504.2610, L501.1400, L100.0100, L500.4050 #### [facility] [address] [place], [place], [address] Result Comment: DUPL ICATE ORDER RDW CV Normal 11.6-14.6 [facility] Comment on above: Result Comment: Canc elled via OM: [employer] (not [employer]) per Insurance Performed By: #### L 504.2610, L501.1400, L100.0100, L500.4050 #### [facility] [address] [place], [place], [address] Result Comment: DUPL ICATE ORDER RDW SD Normal 35.1-43.9 [facility] Comment on above: Result Comment: Canc elled via OM: [employer] (not [employer]) per Insurance Performed By: #### L 504.2610, L501.1400, L100.0100, L500.4050 #### [facility] [address] [place], [place], [address] Result Comment: DUPL ICATE ORDER WBC Normal 4.4-11.0 [facility] Comment on above: Result Comment: Canc elled via OM: [employer] (not Tru[employer]) per Insurance Performed By: #### L 504.2610, L501.1400, L100.0100, L500.4050 #### [facility] [address] [place], [place], [address] Result Comment: DUPL ICATE ORDER Carbon dioxide, total [Moles /volume] in Central venous bloodOrdered By: Ratna Bell on 06-28-2025 CO2 [Moles/Vol] 25.0 mmol/L 21.0-32.0 [facility] Chloride assayOrdered By: Prosper Bell on 06-28-2025 Chloride [Moles/Vol] 101 mmol/L 98-108 [facility] Comprehensive Metabolic Prof ilon 06-28-2025 Albumin [Mass/Vol] 4.2 g/dL Normal 3.4-4.8 [facility] Comment on above: Performed By: #### L 504.2610, L501.1400, L100.0100, L500.4050 #### [facility] [address] [place], [address] Albumin/Globulin [Mass ratio] 1.8 {ratio} Normal 0.9-2.4 [facility] Comment on above: Performed By: #### L 504.2610, L501.1400, L100.0100, L500.4050 #### [facility] [address] [place], [address] ALK PHOS 68 U/L Normal 35-104 [facility] Comment on above: Performed By: #### L 504.2610, L501.1400, L100.0100, L500.4050 #### [facility] [address] [place], [address] ALT [Catalytic activity/Vol] 20 U/L Normal <=34 [facility] Comment on above: Performed By: #### L 504.2610, L501.1400, L100.0100, L500.4050 #### [facility] [address] [place], [address] AST [Catalytic activity/Vol] 19 U/L Normal <=31 [facility] Comment on above: Performed By: #### L 504.2610, L501.1400, L100.0100, L500.4050 #### [facility] [address] [place], [address] Bilirubin [Mass/Vol] 0.25 mg/dL Normal 0.00-1.30 [facility] Comment on above: Performed By: #### L 504.2610, L501.1400, L100.0100, L500.4050 #### [facility] [address] [place], [address] BUN/CRE 23.7 RATIO High 10-20 [facility] Comment on above: Performed By: #### L 504.2610, L501.1400, L100.0100, L500.4050 #### [facility] [address] [place], [address] Calcium [Mass/Vol] 9.5 mg/dL Normal 7.6-11.0 [facility] Comment on above: Performed By: #### L 504.2610, L501.1400, L100.0100, L500.4050 #### [facility] [address] [place], [address] Chloride [Moles/Vol] 101 mmol/L Normal 98-108 [facility] Comment on above: Performed By: #### L 504.2610, L501.1400, L100.0100, L500.4050 #### [facility] [address] [place], [address] CO2 [Moles/Vol] 25.0 mmol/L Normal 21.0-32.0 [facility] Comment on above: Performed By: #### L 504.2610, L501.1400, L100.0100, L500.4050 #### [facility] [address] [place], [address] Creatinine [Mass/Vol] 0.49 mg/dL Low 0.70-1.20 [facility] Comment on above: Performed By: #### L 504.2610, L501.1400, L100.0100, L500.4050 #### [facility] [address] [place], [address] ECRCL 54.94 ml/min Normal 50-250 [facility] Comment on above: Performed By: #### L 504.2610, L501.1400, L100.0100, L500.4050 #### [facility] [address] [place], [address] GAP 11 Normal 5-15 [facility] Comment on above: Performed By: #### L 504.2610, L501.1400, L100.0100, L500.4050 #### [facility] [address] [place], [address] GFR/1.73 sq M.predicted among non-blacks MDRD (S/P/Bld) [Vol rate/Area] 95 mL/min/{1.73_m2} Normal >60 [facility] Comment on above: Result Comment: mL/m in/1.73m2 CKD-EPI Creatinine Equation (2020) Performed By: #### L 504.2610, L501.1400, L100.0100, L500.4050 #### [facility] [address] [place], [address] Globulin (S) [Mass/Vol] 2.3 g/dL Normal 2.2-4.2 [facility] Comment on above: Performed By: #### L 504.2610, L501.1400, L100.0100, L500.4050 #### [facility] [address] [place], [address] Glucose [Mass/Vol] 112 mg/dL High 70-99 [facility] Comment on above: Performed By: #### L 504.2610, L501.1400, L100.0100, L500.4050 #### [facility] [address] [place], [address] Potassium [Moles/Vol] 4.3 mmol/L Normal 3.3-5.1 [facility] Comment on above: Performed By: #### L 504.2610, L501.1400, L100.0100, L500.4050 #### [facility] [address] [place], [address] Sodium [Moles/Vol] 137 mmol/L Normal 133-145 [facility] Comment on above: Performed By: #### L 504.2610, L501.1400, L100.0100, L500.4050 #### [facility] [address] [place], [address] T PROT 6.6 g/dL Normal 5.9-8.4 [facility] Comment on above: Performed By: #### L 504.2610, L501.1400, L100.0100, L500.4050 #### [facility] [address] [place], [address] Urea nitrogen [Mass/Vol] 12 mg/dL Normal 4-19 [facility] Comment on above: Performed By: #### L 504.2610, L501.1400, L100.0100, L500.4050 #### [facility] [address] [place], [address] ALB Normal 3.4-4.8 [facility] Comment on above: Result Comment: Canc elled via OM: Riabni (not Truxima) per Insurance Performed By: #### L 504.2610, L501.1400, L100.0100, L500.4050 #### [facility] [address] [place], [address] ALK PHOS Normal 35-104 [facility] Comment on above: Result Comment: Canc elled via OM: Riabni (not Truxima) per Insurance Performed By: #### L 504.2610, L501.1400, L100.0100, L500.4050 #### [facility] [address] [place], [address] ALT Normal <=34 [facility] Comment on above: Result Comment: Canc elled via OM: Riabni (not Truxima) per Insurance Performed By: #### L 504.2610, L501.1400, L100.0100, L500.4050 #### [facility] [address] [place], [address] AST Normal <=31 [facility] Comment on above: Result Comment: Canc elled via OM: Riabni (not Truxima) per Insurance Performed By: #### L 504.2610, L501.1400, L100.0100, L500.4050 #### [facility] [address] [place], [address] BUN Normal 4-19 [facility] Comment on above: Result Comment: Canc elled via OM: Riabni (not Truxima) per Insurance Performed By: #### L 504.2610, L501.1400, L100.0100, L500.4050 #### [facility] [address] [place], [address] BUN/CRE Normal 10-20 [facility] Comment on above: Result Comment: Canc elled via OM: Riabni (not Truxima) per Insurance Performed By: #### L 504.2610, L501.1400, L100.0100, L500.4050 #### [facility] [address] [place], [address] Calcium Normal 7.6-11.0 [facility] Comment on above: Result Comment: Canc elled via OM: Riabni (not Truxima) per Insurance Performed By: #### L 504.2610, L501.1400, L100.0100, L500.4050 #### [facility] [address] [place], [address] CL Normal 98-108 [facility] Comment on above: Result Comment: Canc elled via OM: Riabni (not Truxima) per Insurance Performed By: #### L 504.2610, L501.1400, L100.0100, L500.4050 #### [facility] [address] [place], [address] CO2 Normal 21.0-32.0 [facility] Comment on above: Result Comment: Canc elled via OM: Riabni (not Truxima) per Insurance Performed By: #### L 504.2610, L501.1400, L100.0100, L500.4050 #### [facility] [address] [place], [address] CREAT,SERUM Normal 0.70-1.20 [facility] Comment on above: Result Comment: Canc elled via OM: Riabni (not Truxima) per Insurance Performed By: #### L 504.2610, L501.1400, L100.0100, L500.4050 #### [facility] [address] [place], [address] eGFR Normal >60 [facility] Comment on above: Result Comment: Canc elled via OM: Riabni (not Truxima) per Insurance Performed By: #### L 504.2610, L501.1400, L100.0100, L500.4050 #### [facility] [address] [place], [address] GAP Normal 5-15 [facility] Comment on above: Result Comment: Canc elled via OM: Riabni (not Truxima) per Insurance Performed By: #### L 504.2610, L501.1400, L100.0100, L500.4050 #### [facility] [address] [place], [address] GLU Normal 70-99 [facility] Comment on above: Result Comment: Canc elled via OM: Riabni (not Truxima) per Insurance Performed By: #### L 504.2610, L501.1400, L100.0100, L500.4050 #### [facility] [address] [place], [address] Potassium Normal 3.3-5.1 [facility] Comment on above: Result Comment: Canc elled via OM: Riabni (not Truxima) per Insurance Performed By: #### L 504.2610, L501.1400, L100.0100, L500.4050 #### [facility] [address] [place], [address] T BILI Normal 0.00-1.30 [facility] Comment on above: Result Comment: Canc elled via OM: Riabni (not Truxima) per Insurance Performed By: #### L 504.2610, L501.1400, L100.0100, L500.4050 #### [facility] [address] [place], [address] T PROT Normal 5.9-8.4 [facility] Comment on above: Result Comment: Canc elled via OM: Riabni (not Truxima) per Insurance Performed By: #### L 504.2610, L501.1400, L100.0100, L500.4050 #### [facility] [address] [place], [address] Comprehensive Metabolic Profil Normal 133-145 [facility] Comment on above: Result Comment: Canc elled via OM: Riabni (not Truxima) per Insurance Performed By: #### L 504.2610, L501.1400, L100.0100, L500.4050 #### [facility] [address] [place], [address] Eosinophil percentageOrdered By: Ratna Bell on 06-28-2025 Eosinophils/100 WBC (Bld) 0.8 % 0-5 [facility] Erythrocyte distribution wid th ratioOrdered By: Ratna Bell on 06-28-2025 Erythrocyte distribution width (RBC) [Ratio] 18.2 % High 11.6-14.6 [facility] Erythrocyte distribution wid th standard deviationOrdered By: Ratna Bell on 06-28-2025 Erythrocyte distribution width (RBC) [Ratio] 51.5 fl High 35.1-43.9 [facility] Glomerular filtration rate ( GFR) estimation/1.73 sq m using serum, plasma, or whole bOrdered By: Ratna Bell on 06-28-2025 GFR/1.73 sq M.predicted among non-blacks MDRD (S/P/Bld) [Vol rate/Area] 95 mL/min/{1.73_m2} >60 [facility] Comment on above: mL/min/1.73m2 CKD-EP I Creatinine Equation (2020) Hematocrit Auto (Bld) [Volum e fraction]Ordered By: Ratna Bell on 06-28-2025 Hematocrit (Bld) [Volume fraction] 33.1 % Low 37-47 [facility] Hemoglobin measurementOrdere d By: Ratna Bell on 06-28-2025 Hemoglobin (Bld) [Mass/Vol] 11.1 g/dL Low 12.0-15.0 [facility] Immature granulocytes/100 WB C Auto (Bld)Ordered By: Ratna Bell on 06-28-2025 Immature granulocytes/100 WBC (Bld) 0.300 % 0.0-0.9 [facility] Comment on above: IG% - Immature Granu locytes (promyelocytes, myelocytes and metamyelocytes) > 1% indicates that a LEFT SHIFT is Present. LDHon 06-28-2025 LDH 200 U/L Normal 84-246 [facility] Comment on above: Order Comment: 1 Performed By: #### L 504.2610, L501.1400, L100.0100, L500.4050 #### [facility] [address] [place], [address] Laboratory - Chemistry and C hemistry - challengeOrdered By: [facility] Bell on 06-28-2025 AST [Catalytic activity/Vol] 19 U/L <32 [facility] Lactate dehydrogenase (LDH) measurementOrdered By: [facility]reeti [facility] on 06-28-2025 LDH [Catalytic activity/Vol] 200 U/L 84-246 [facility] MCV (mean corpuscular volume ) determinationOrdered By: Ratna Bell on 06-28-2025 MCV (RBC) [Entitic vol] 85.3 fL 81-99 [facility] Magnesiumon 06-28-2025 Magnesium [Mass/Vol] 2.1 mg/dL Normal 1.5-2.2 [facility] Comment on above: Performed By: #### L 504.2610, L501.1400, L100.0100, L500.4050 #### [facility] [address] [place], [place], [id number] Magnesium measurement (mass/ volume)Ordered By: Ratna Bell on 06-28-2025 Magnesium (Unsp spec) [Mass/Vol] 2.1 mg/dL 1.5-2.2 [facility] Mean corpuscular hemoglobin (MCH) determinationOrdered By: [facility] Bell on 06-28-2025 MCH (RBC) [Entitic mass] 28.6 pg 27.0-32.0 [facility] Mean corpuscular hemoglobin concentration (MCHC) determinationOrdered By: [facility] Bell on 06-28-2025 MCHC (RBC) [Mass/Vol] 33.5 g/dL 32-36 [facility] Mean platelet volume determi nationOrdered By: [facility] Arabella on 06-28-2025 Platelet mean volume (Bld) [Entitic vol] 10.1 fL 6.2-12.0 [facility] Monocyte percentageOrdered B y: [facility] Arabella on 06-28-2025 Monocytes/100 WBC (Bld) 8.5 % 0-10 [facility] Neutrophil percentageOrdered By: [facility] on [facility] Neutrophils/100 WBC (Bld) 78.5 % High 47-70 [facility] Nucleated red blood cell per centageOrdered By: [facility] Arabella on 06-28-2025 Nucleated RBC/100 WBC (Bld) [Ratio] 0 % 0-5 [facility] Oncology Visit Reporton Oncology Visit Report [facility] [place] [facility] [address] [place] [address] OFFICE VISIT Date of Service: 06/28/25816 MR#: [id number] Acct: [id number] Name: JULIA PLASCENCIA Rep #: [id number] : 1945 From: Ngozi Carroll NP [employer]CIAL [employer]LYST [employer] -C Age/Sex: 80/F Location[place] [facility] Status: Signed HPI Subjective Date of Service [...] Note: This case will be sent to [facility] for formal consultation with the hematopathology division of the Pathology Department, to rule out a lymphoproliferative disorder. A separate report from [facility] will follow. IHCs were obtained and will be reported by the employee relations consultant pathologist. COMMENT: A portion of the tissue was sent in RPMI for flow cytometry to [facility]. The flow cytometry showed ???no immunophenotypic evidence of an abnormal population of B lymphocytes or T lymphocytes. Few B-cells detected???. Diagnosis provided by Dr Ashlyn Baeza ([facility] hematopathology division) This addendum is added to incorporate an outside pathology consultation report. The case was examined at [facility] by Dr. Monte (#[id number]) and the following diagnosis was rendered. A. [...] mild dysuria yesterday that is resolved today. [facility] Medical History Encounter for antineoplastic chemotherapy and [...] 08:13 11 (more content not included)... Normal [facility] Phosphoruson 06-28-2025 Phosphate [Mass/Vol] 4.3 mg/dL Normal 2.7-4.5 [facility] Comment on above: Performed By: #### L 504.2610, L501.1400, L100.0100, L500.4050 #### [facility] [address] [place], [address] Platelet countOrdered By: Prosper Bell on 06-28-2025 Platelets (Bld) [#/Vol] 298 10*3/uL 150-450 [facility] Potassium measurement (mass/ volume)Ordered By: Ratna Bell on 06-28-2025 Potassium (Unsp spec) [Mass/Vol] 4.3 mmol/L 3.3-5.1 [facility] RBC Auto (Bld) [#/Vol]Ordere d By: Ratna Bell on 06-28-2025 RBC (Bld) [#/Vol] 3.88 10*6/uL Low 4.2-5.4 [facility] Serum creatinine measurement (mass/volume)Ordered By: Ratna Bell on 06-28-2025 Creatinine [Mass/Vol] 0.49 mg/dL Low 0.70-1.20 [facility] Serum globulin measurementOr dered By: Ratna Bell on 06-28-2025 Globulin (S) [Mass/Vol] 2.3 g/dL 2.2-4.2 [facility] Serum glucose measurement (m ass/volume)Ordered By: Ratna Bell on 06-28-2025 Glucose [Mass/Vol] 112 mg/dL High 70-99 [facility] Serum or plasma alanine morejon otransferase (ALT) measurementOrdered By: Ratna Bell on 06-28-2025 ALT [Catalytic activity/Vol] 20 U/L <35 [facility] Serum or plasma albumin arya urement (mass/volume)Ordered By: Ratna Bell on 06-28-2025 Albumin [Mass/Vol] 4.2 g/dL 3.4-4.8 [facility] Serum or plasma albumin/glob ulin mass ratioOrdered By: Ratna Bell on 06-28-2025 Albumin/Globulin [Mass ratio] 1.8 {ratio} 0.9-2.4 [facility] Serum or plasma alkaline altagracia sphatase measurementOrdered By: Ratna Bell on 06-28-2025 ALP [Catalytic activity/Vol] 68 U/L 35-104 [facility] Serum or plasma calcium arya urement (mass/volume)Ordered By: Ratna Bell on 06-28-2025 Calcium [Mass/Vol] 9.5 mg/dL 7.6-11.0 [facility] Serum or plasma urea nitroge n measurement (mass/volume)Ordered By: Ratna Bell on 06-28-2025 Urea nitrogen [Mass/Vol] 12 mg/dL 4-19 [facility] Serum or plasma uric acid me asurement (mass/volume)Ordered By: Ratna Bell on 06-28-2025 Urate [Mass/Vol] 5.2 mg/dL 2.6-6.0 [facility] Comment on above: The drugs N-Acetylcy steine and Metamizole may falsely depress this assay. Sodium levelOrdered By: Rob Bell on 06-28-2025 Sodium [Moles/Vol] 137 mmol/L 133-145 [facility] Total proteinOrdered By: Dion Bell on 06-28-2025 Protein [Mass/Vol] 6.6 g/dL 5.9-8.4 [facility] Uric Acidon 06-28-2025 URIC 5.2 mg/dL Normal 2.6-6.0 [facility] Comment on above: Result Comment: The drugs N-Acetylcysteine and Metamizole may falsely depress this assay. Performed By: #### L 504.2610, L501.1400, L100.0100, L500.4050 #### [facility] [address] [place] [address], [id number] White blood cell (WBC) count Ordered By: Ratna Bell on 06-28-2025 WBC (Bld) [#/Vol] 7.1 10*3/uL 4.4-11.0 [facility] Absolute lymphocyte countOrd ered By: Ngozi Carroll on 06-12-2025 Lymphocytes Auto (Unsp spec) [#/Vol] 0.73 10*3/uL Low 0.83-4.51 [facility] Absolute neutrophil countOrd ered By: Ngozi Carroll on 06-12-2025 Neutrophils (Bld) [#/Vol] 9.8 10*3/uL High 2.0-7.7 [facility] Anion gap in Serum or Plasma Ordered By: Ngozi Carly on 06-12-2025 Anion gap [Moles/Vol] 10 mmol/L - [facility] BUN/creatinine ratioOrdered By: Ngozi Carly on 06-12-2025 Urea nitrogen/Creatinine [Mass ratio] 41.3 mg/mg High 06-12 [facility] Bilirubin, totalOrdered By: Ngozi Carly on 06-12-2025 Bilirubin [Mass/Vol] 0.41 mg/dL 0.00-1.30 [facility] Blood lymphocytes/100 leukoc ytesOrdered By: Ngozi Carly on 06-12-2025 Lymphocytes/100 WBC (Bld) 7 % Low 19-41 [facility] Blood segmented neutrophils/ 100 leukocytesOrdered By: Ngozi Carly on 06-12-2025 Segmented neutrophils/100 WBC (Bld) 93 % High 47-70 [facility] CBC W/Diff, Automatedon 05-25 Absolute Lymph 0.73 X10 3/uL Low 0.83-4.51 [facility] Comment on above: Performed By: #### L 504.2610, L501.1400, L100.0100, L500.4050 #### [facility] [address] [place], [address] Absolute Neut 9.8 X10 3/uL High 2.0-7.7 [facility] Comment on above: Performed By: #### L 504.2610, L501.1400, L100.0100, L500.4050 #### [facility] [address] [place], [address] Carbon dioxide, total [Moles /volume] in Central venous bloodOrdered By: Ngozi Carly on 06-12-2025 CO2 [Moles/Vol] 26.9 mmol/L 21.0-32.0 [facility] Chloride assayOrdered By: Ty ra Carly on 06-12-2025 Chloride [Moles/Vol] 102 mmol/L 98-108 [facility] Comprehensive Metabolic Prof ilon 06-12-2025 Albumin [Mass/Vol] 3.8 g/dL Normal 3.4-4.8 [facility] Comment on above: Performed By: #### L 504.2610, L501.1400, L100.0100, L500.4050 #### [facility] [address] [place], [address] Albumin/Globulin [Mass ratio] 1.5 {ratio} Normal 0.9-2.4 [facility] Comment on above: Performed By: #### L 504.2610, L501.1400, L100.0100, L500.4050 #### [facility] [address] [place], [address] ALK PHOS 94 U/L Normal 35-104 [facility] Comment on above: Performed By: #### L 504.2610, L501.1400, L100.0100, L500.4050 #### [facility] [address] [place], [address] ALT [Catalytic activity/Vol] 65 U/L High <=34 [facility] Comment on above: Performed By: #### L 504.2610, L501.1400, L100.0100, L500.4050 #### [facility] [address] [place], [address] AST [Catalytic activity/Vol] 22 U/L Normal <=31 [facility] Comment on above: Performed By: #### L 504.2610, L501.1400, L100.0100, L500.4050 #### [facility] [address] [place], [address] Bilirubin [Mass/Vol] 0.41 mg/dL Normal 0.00-1.30 [facility] Comment on above: Performed By: #### L 504.2610, L501.1400, L100.0100, L500.4050 #### [facility] [address] [place], [address] BUN/CRE 41.3 RATIO High 10-20 [facility] Comment on above: Performed By: #### L 504.2610, L501.1400, L100.0100, L500.4050 #### [facility] [address] [place], [address] Calcium [Mass/Vol] 9.3 mg/dL Normal 7.6-11.0 [facility] Comment on above: Performed By: #### L 504.2610, L501.1400, L100.0100, L500.4050 #### [facility] [address] [place], [address] Chloride [Moles/Vol] 102 mmol/L Normal 98-108 [facility] Comment on above: Performed By: #### L 504.2610, L501.1400, L100.0100, L500.4050 #### [facility] [address] [place], [address] CO2 [Moles/Vol] 26.9 mmol/L Normal 21.0-32.0 [facility] Comment on above: Performed By: #### L 504.2610, L501.1400, L100.0100, L500.4050 #### [facility] [address] [place], [address] Creatinine [Mass/Vol] 0.42 mg/dL Low 0.70-1.20 [facility] Comment on above: Performed By: #### L 504.2610, L501.1400, L100.0100, L500.4050 #### [facility] [address] [place], [address] ECRCL 55.10 ml/min Normal 50-250 [facility] Comment on above: Performed By: #### L 504.2610, L501.1400, L100.0100, L500.4050 #### [facility] [address] [place], [address] GAP 10 Normal 5-15 [facility] Comment on above: Performed By: #### L 504.2610, L501.1400, L100.0100, L500.4050 #### [facility] [address] [place], [address] GFR/1.73 sq M.predicted among non-blacks MDRD (S/P/Bld) [Vol rate/Area] 98 mL/min/{1.73_m2} Normal >60 [facility] Comment on above: Result Comment: mL/m in/1.73m2 CKD-EPI Creatinine Equation (2020) Performed By: #### L 504.2610, L501.1400, L100.0100, L500.4050 #### [facility] [address] [place], [address] Globulin (S) [Mass/Vol] 2.4 g/dL Normal 2.2-4.2 [facility] Comment on above: Performed By: #### L 504.2610, L501.1400, L100.0100, L500.4050 #### [facility] [address] [place], [address] Glucose [Mass/Vol] 128 mg/dL High 70-99 [facility] Comment on above: Performed By: #### L 504.2610, L501.1400, L100.0100, L500.4050 #### [facility] [address] [place], [address] Potassium [Moles/Vol] 3.6 mmol/L Normal 3.3-5.1 [facility] Comment on above: Performed By: #### L 504.2610, L501.1400, L100.0100, L500.4050 #### [facility] [address] [place], [address] Sodium [Moles/Vol] 139 mmol/L Normal 133-145 [facility] Comment on above: Performed By: #### L 504.2610, L501.1400, L100.0100, L500.4050 #### [facility] [address] [place], [address] T PROT 6.2 g/dL Normal 5.9-8.4 [facility] Comment on above: Performed By: #### L 504.2610, L501.1400, L100.0100, L500.4050 #### [facility] [address] [place], [address] Urea nitrogen [Mass/Vol] 17 mg/dL Normal 4-19 [facility] Comment on above: Performed By: #### L 504.2610, L501.1400, L100.0100, L500.4050 #### [facility] [address] [place], [address] Erythrocyte distribution wid th ratioOrdered By: Ngozi Carroll on 06-12-2025 Erythrocyte distribution width (RBC) [Ratio] 14.0 % 11.6-14.6 [facility] Erythrocyte distribution wid th standard deviationOrdered By: Ngozi Carroll on 06-12-2025 Erythrocyte distribution width (RBC) [Ratio] 42.7 fl 35.1-43.9 [facility] Glomerular filtration rate ( GFR) estimation/1.73 sq m using serum, plasma, or whole bOrdered By: Ngozi Carroll on 06-12-2025 GFR/1.73 sq M.predicted among non-blacks MDRD (S/P/Bld) [Vol rate/Area] 98 mL/min/{1.73_m2} >60 [facility] Comment on above: mL/min/1.73m2 CKD-EP I Creatinine Equation (2020) Hematocrit Auto (Bld) [Volum e fraction]Ordered By: Ngozi Carroll on 06-12-2025 Hematocrit (Bld) [Volume fraction] 28.1 % Low 37-47 [facility] Hemoglobin measurementOrdere d By: Ngozi Carroll on 06-12-2025 Hemoglobin (Bld) [Mass/Vol] 9.3 g/dL Low 12.0-15.0 [facility] LDHon 06-12-2025 LDH 229 U/L Normal 84-246 [facility] Comment on above: Order Comment: 1 Performed By: #### L 504.2610, L501.1400, L100.0100, L500.4050 #### [facility] [address] [place], [address] Laboratory - Chemistry and C hemistry - challengeOrdered By: Ngozi Carroll on 06-12-2025 AST [Catalytic activity/Vol] 22 U/L <32 [facility] Lactate dehydrogenase (LDH) measurementOrdered By: Ngozi Carroll on 06-12-2025 LDH [Catalytic activity/Vol] 229 U/L 84-246 [facility] MCV (mean corpuscular volume ) determinationOrdered By: Ngozi Carroll on 06-12-2025 MCV (RBC) [Entitic vol] 83.1 fL 81-99 [facility] Mean corpuscular hemoglobin (MCH) determinationOrdered By: Ngozi Carroll on 06-12-2025 MCH (RBC) [Entitic mass] 27.5 pg 27.0-32.0 [facility] Mean corpuscular hemoglobin concentration (MCHC) determinationOrdered By: Ngozi Carroll on 06-12-2025 MCHC (RBC) [Mass/Vol] 33.1 g/dL 32-36 [facility] Mean platelet volume determi nationOrdered By: Ngozi Carroll on 06-12-2025 Platelet mean volume (Bld) [Entitic vol] 10.4 fL 6.2-12.0 [facility] Oncology Visit Reporton 05-25 Oncology Visit Report [facility] [address] [place] [address] OFFICE VISIT Date of Service: 06/12/25 1010 MR#: [id number] Acct: [id number] Name: MARKUSJULIA SAUCEDA Rep #: [id number] : 1945 From: Ratna Bell MD Age/Sex: 80/F [place] [facility] Status: Signed HPI Subjective Date of Service [...] Note: This case will be sent to [facility] for formal consultation with the hematopathology division of the Pathology Department, to rule out a lymphoproliferative disorder. A separate report from [facility] will follow. IHCs were obtained and will be reported by the employee relations consultant pathologist. COMMENT: A portion of the tissue was sent in RPMI for flow cytometry to [facility]. The flow cytometry showed ???no immunophenotypic evidence of an abnormal population of B lymphocytes or T lymphocytes. Few B-cells detected???. Diagnosis provided by Dr Ashlyn Baeza ([facility] hematopathology division) This addendum is added to incorporate an outside pathology consultation report. The case was examined at [facility] by Dr. Monte (#[id number]) and the following diagnosis was rendered. A. [...] summary and response: R-[facility] June 07, 2025 [facility] Medical History Encounter for antineoplastic chemotherapy and [...] documented; Denie (more content not included)... Normal [facility] Platelet countOrdered By: Nico Carroll on 06-12-2025 Platelets (Bld) [#/Vol] 142 10*3/uL Low 150-450 [facility] Potassium measurement (mass/ volume)Ordered By: Ngozi Carroll on 06-12-2025 Potassium (Unsp spec) [Mass/Vol] 3.6 mmol/L 3.3-5.1 [facility] RBC Auto (Bld) [#/Vol]Ordere d By: Ngozi Carroll on 06-12-2025 RBC (Bld) [#/Vol] 3.38 10*6/uL Low 4.2-5.4 [facility] Serum creatinine measurement (mass/volume)Ordered By: Ngozi Carroll on 06-12-2025 Creatinine [Mass/Vol] 0.42 mg/dL Low 0.70-1.20 [facility] Serum globulin measurementOr dered By: Ngozi Carroll on 06-12-2025 Globulin (S) [Mass/Vol] 2.4 g/dL 2.2-4.2 [facility] Serum glucose measurement (m ass/volume)Ordered By: Ngozi Carroll on 06-12-2025 Glucose [Mass/Vol] 128 mg/dL High 70-99 [facility] Serum or plasma alanine morejon otransferase (ALT) measurementOrdered By: Ngozi Carroll on 06-12-2025 ALT [Catalytic activity/Vol] 65 U/L High <35 [facility] Serum or plasma albumin arya urement (mass/volume)Ordered By: Ngozi Carroll on 06-12-2025 Albumin [Mass/Vol] 3.8 g/dL 3.4-4.8 [facility] Serum or plasma albumin/glob ulin mass ratioOrdered By: Ngozi Carroll on 06-12-2025 Albumin/Globulin [Mass ratio] 1.5 {ratio} 0.9-2.4 [facility] Serum or plasma alkaline altagracia sphatase measurementOrdered By: Ngozi Carroll on 06-12-2025 ALP [Catalytic activity/Vol] 94 U/L 35-104 [facility] Serum or plasma calcium arya urement (mass/volume)Ordered By: Ngozi Carroll on 06-12-2025 Calcium [Mass/Vol] 9.3 mg/dL 7.6-11.0 [facility] Serum or plasma urea nitroge n measurement (mass/volume)Ordered By: Ngozi Carroll on 06-12-2025 Urea nitrogen [Mass/Vol] 17 mg/dL 4-19 [facility] Serum or plasma uric acid me asurement (mass/volume)Ordered By: Ngozi Carroll on 06-12-2025 Urate [Mass/Vol] 3.2 mg/dL 2.6-6.0 [facility] Comment on above: The drugs N-Acetylcy steine and Metamizole may falsely depress this assay. Sodium levelOrdered By: Ngozi Carroll on 06-12-2025 Sodium [Moles/Vol] 139 mmol/L 133-145 [facility] Total cell countOrdered By: Ngozi Carroll on 06-12-2025 Cells counted Molgen (Bld/Tiss) [#] 100 MANUAL DIFF [facility] Total proteinOrdered By: Jeaneth Carroll on 06-12-2025 Protein [Mass/Vol] 6.2 g/dL 5.9-8.4 [facility] Uric Acidon 06-12-2025 URIC 3.2 mg/dL Normal 2.6-6.0 [facility] Comment on above: Result Comment: The drugs N-Acetylcysteine and Metamizole may falsely depress this assay. Performed By: #### L 504.2610, L501.1400, L100.0100, L500.4050 #### [facility] [address] [place] [address]. [place], [address] White blood cell (WBC) count Ordered By: Ngozi Carroll on 06-12-2025 WBC (Bld) [#/Vol] 10.5 10*3/uL 4.4-11.0 [facility] Automated lymphocyte count a s percentage of total leukocytesOrdered By: Ratna Bell on 06-07-2025 Lymphocytes/100 WBC Auto (Unsp spec) 18.8 % Low 19-41 [facility] Basophil percentageOrdered B y: Ratna Bell on 06-07-2025 Basophils/100 WBC (Bld) 0.3 % 0-1 [facility] CBC W/Diff, Automatedon 10- Absolute Lymph 1.16 X10 3/uL Normal 0.83-4.51 [facility] Comment on above: Performed By: #### L 504.2610, L501.1400, L100.0100, L500.4050 ####[facility] [address] [place], [address] Absolute Neut 4.2 X10 3/uL Normal 2.0-7.7 [facility] Comment on above: Performed By: #### L 504.2610, L501.1400, L100.0100, L500.4050 ####[facility] [address] [place], [address] Basophils/100 WBC (Bld) 0.3 % Normal 0-1 [facility] Comment on above: Performed By: #### L 504.2610, L501.1400, L100.0100, L500.4050 ####[facility] [address] [place], [address] Eosinophils/100 WBC (Bld) 3.4 % Normal 0-5 [facility] Comment on above: Performed By: #### L 504.2610, L501.1400, L100.0100, L500.4050 ####[facility] [address] [place], [address] Erythrocyte distribution width (RBC) [Ratio] 14.1 % Normal 11.6-14.6 [facility] Comment on above: Performed By: #### L 504.2610, L501.1400, L100.0100, L500.4050 ####[facility] [address] [place], [address] Hematocrit (Bld) [Volume fraction] 34.2 % Low 37-47 [facility] Comment on above: Performed By: #### L 504.2610, L501.1400, L100.0100, L500.4050 ####[facility] [address] [place], [address] Hemoglobin (Bld) [Mass/Vol] 11.1 g/dL Low 12.0-15.0 [facility] Comment on above: Performed By: #### L 504.2610, L501.1400, L100.0100, L500.4050 ####[facility] [address] [place], [address] IG% 0.300 Normal 0.0-0.9 [facility] Comment on above: Result Comment: IG% - Immature Granulocytes (promyelocytes, myelocytes and metamyelocytes) > 1% indicates that a LEFT SHIFT is Present. Performed By: #### L 504.2610, L501.1400, L100.0100, L500.4050 ####[facility] [address] [place], [address] Lymphocytes/100 WBC (Bld) 18.8 % Low 19-41 [facility] Comment on above: Performed By: #### L 504.2610, L501.1400, L100.0100, L500.4050 ####[facility] [address] [place], [address] MCH (RBC) [Entitic mass] 27.4 pg Normal 27.0-32.0 [facility] Comment on above: Performed By: #### L 504.2610, L501.1400, L100.0100, L500.4050 ####[facility] [address] [place], [address] MCHC (RBC) [Mass/Vol] 32.5 g/dL Normal 32-36 [facility] Comment on above: Performed By: #### L 504.2610, L501.1400, L100.0100, L500.4050 ####[facility] [address] [place], [address] MCV (RBC) [Entitic vol] 84.4 fL Normal 81-99 [facility] Comment on above: Performed By: #### L 504.2610, L501.1400, L100.0100, L500.4050 ####[facility] [address] [place], [address] Monocytes/100 WBC (Bld) 8.8 % Normal 0-10 [facility] Comment on above: Performed By: #### L 504.2610, L501.1400, L100.0100, L500.4050 ####[facility] [address] [place], [address] Neutrophils/100 WBC (Bld) 68.4 % Normal 47-70 [facility] Comment on above: Performed By: #### L 504.2610, L501.1400, L100.0100, L500.4050 ####[facility] [address] [place], [address] Nucleated RBC (Bld) [#/Vol] 0 10*3/uL Normal 0-5 [facility] Comment on above: Performed By: #### L 504.2610, L501.1400, L100.0100, L500.4050 ####[facility] [address] [place], [address] Platelet mean volume (Bld) [Entitic vol] 10.2 fL Normal 6.2-12.0 [facility] Comment on above: Performed By: #### L 504.2610, L501.1400, L100.0100, L500.4050 ####[facility] [address] [place], [address] Platelets (Bld) [#/Vol] 238 10*3/uL Normal 150-450 [facility] Comment on above: Performed By: #### L 504.2610, L501.1400, L100.0100, L500.4050 ####[facility] [address] [place], [address] RBC (Bld) [#/Vol] 4.05 10*6/uL Low 4.2-5.4 [facility] Comment on above: Performed By: #### L 504.2610, L501.1400, L100.0100, L500.4050 ####[facility] [address] [place], [address] RDW SD 43.6 fl Normal 35.1-43.9 [facility] Comment on above: Performed By: #### L 504.2610, L501.1400, L100.0100, L500.4050 ####[facility] [address] [place], [address] WBC (Bld) [#/Vol] 6.2 10*3/uL Normal 4.4-11.0 [facility] Comment on above: Performed By: #### L 504.2610, L501.1400, L100.0100, L500.4050 ####[facility] [address] [place], [address] Comprehensive Metabolic [facility] 06-07-2025 Albumin [Mass/Vol] 4.0 g/dL Normal 3.4-4.8 [facility] Comment on above: Performed By: #### L 504.2610, L501.1400, L100.0100, L500.4050 ####[facility] [address] [place], [address] Albumin/Globulin [Mass ratio] 1.5 {ratio} Normal 0.9-2.4 [facility] Comment on above: Performed By: #### L 504.2610, L501.1400, L100.0100, L500.4050 ####[facility] [address] [place], [address] ALK PHOS 86 U/L Normal 35-104 [facility] Comment on above: Performed By: #### L 504.2610, L501.1400, L100.0100, L500.4050 ####[facility] [address] [place], [address] ALT [Catalytic activity/Vol] 13 U/L Normal <=34 [facility] Comment on above: Performed By: #### L 504.2610, L501.1400, L100.0100, L500.4050 ####[facility] [address] [place], [address] AST [Catalytic activity/Vol] 17 U/L Normal <=31 [facility] Comment on above: Performed By: #### L 504.2610, L501.1400, L100.0100, L500.4050 ####[facility] [address] [place], [address] Bilirubin [Mass/Vol] 0.20 mg/dL Normal 0.00-1.30 [facility] Comment on above: Performed By: #### L 504.2610, L501.1400, L100.0100, L500.4050 ####[facility] [address] [place], [address] BUN/CRE 30.8 RATIO High 10-20 [facility] Comment on above: Performed By: #### L 504.2610, L501.1400, L100.0100, L500.4050 ####[facility] [address] [place], [address] Calcium [Mass/Vol] 9.6 mg/dL Normal 7.6-11.0 [facility] Comment on above: Performed By: #### L 504.2610, L501.1400, L100.0100, L500.4050 ####[facility] [address] [place], [address] Chloride [Moles/Vol] 105 mmol/L Normal 98-108 [facility] Comment on above: Performed By: #### L 504.2610, L501.1400, L100.0100, L500.4050 ####[facility] [address] [place], [address] CO2 [Moles/Vol] 23.2 mmol/L Normal 21.0-32.0 [facility] Comment on above: Performed By: #### L 504.2610, L501.1400, L100.0100, L500.4050 ####[facility] [address] [place], [address] Creatinine [Mass/Vol] 0.55 mg/dL Low 0.70-1.20 [facility] Comment on above: Performed By: #### L 504.2610, L501.1400, L100.0100, L500.4050 ####[facility] [address] [place], [address] ECRCL 55.10 ml/min Normal 50-250 [facility] Comment on above: Performed By: #### L 504.2610, L501.1400, L100.0100, L500.4050 ####[facility] [address] [place], [address] GAP 11 Normal 5-15 [facility] Comment on above: Performed By: #### L 504.2610, L501.1400, L100.0100, L500.4050 ####[facility] [address] [place], [address] GFR/1.73 sq M.predicted among non-blacks MDRD (S/P/Bld) [Vol rate/Area] 92 mL/min/{1.73_m2} Normal >60 [facility] Comment on above: Result Comment: mL/m in/1.73m2 CKD-EPI Creatinine Equation (2020) Performed By: #### L 504.2610, L501.1400, L100.0100, L500.4050 ####[facility] [address] [place], [address] Globulin (S) [Mass/Vol] 2.7 g/dL Normal 2.2-4.2 [facility] Comment on above: Performed By: #### L 504.2610, L501.1400, L100.0100, L500.4050 ####[facility] [address] [place], [address] Glucose [Mass/Vol] 119 mg/dL High 70-99 [facility] Comment on above: Performed By: #### L 504.2610, L501.1400, L100.0100, L500.4050 ####[facility] [address] [place], [address] Potassium [Moles/Vol] 4.3 mmol/L Normal 3.3-5.1 [facility] Comment on above: Performed By: #### L 504.2610, L501.1400, L100.0100, L500.4050 ####[facility] [address] [place], [address] Sodium [Moles/Vol] 139 mmol/L Normal 133-145 [facility] Comment on above: Performed By: #### L 504.2610, L501.1400, L100.0100, L500.4050 ####[facility] [address] [place], [address] T PROT 6.8 g/dL Normal 5.9-8.4 [facility] Comment on above: Performed By: #### L 504.2610, L501.1400, L100.0100, L500.4050 ####[facility] [address] [place], [address] Urea nitrogen [Mass/Vol] 17 mg/dL Normal 4-19 [facility] Comment on above: Performed By: #### L 504.2610, L501.1400, L100.0100, L500.4050 ####[facility] [address] [place], [address] Eosinophil percentageOrdered By: Robpreeti Bell on 06-07-2025 Eosinophils/100 WBC (Bld) 3.4 % 0-5 [facility] Immature granulocytes/100 WB C Auto (Bld)Ordered By: Robpreeti Bell on 06-07-2025 Immature granulocytes/100 WBC (Bld) 0.300 % 0.0-0.9 [facility] Comment on above: IG% - Immature Granu locytes (promyelocytes, myelocytes and metamyelocytes) > 1% indicates that a LEFT SHIFT is Present. LDHon 06-07-2025 LDH 195 U/L Normal 84-246 [facility] Comment on above: Order Comment: 1 Performed By: #### L 504.2610, L501.1400, L100.0100, L500.4050 ####[facility] [address] [place], [address] Monocyte percentageOrdered B y: Robpreeti Bell on 06-07-2025 Monocytes/100 WBC (Bld) 8.8 % 0-10 [facility] Nucleated red blood cell per centageOrdered By: Robpreeti Bell on 06-07-2025 Nucleated RBC/100 WBC (Bld) [Ratio] 0 % 0-5 [facility] Oncology Visit Reporton 05-24 Oncology Visit Report [facility] [place] [facility] [address] [place] [address] OFFICE VISIT Date of Service: 06/07/25 0803 MR#: [id number] Acct: [id number] Name: JULIA PLASCENCIA Rep #: [id number] : 1945 From: Ngozi Carroll NP FINANCIAL ANALYST INTERN -C Age/Sex: 80/F Location[place] [facility] Status: Signed HPI Subjective Date of Service [...] Note: This case will be sent to [facility] for formal consultation with the hematopathology division of the Pathology Department, to rule out a lymphoproliferative disorder. A separate report from [facility] will follow. IHCs were obtained and will be reported by the employee relations consultant pathologist. COMMENT: A portion of the tissue was sent in RPMI for flow cytometry to [facility]. The flow cytometry showed ???no immunophenotypic evidence of an abnormal population of B lymphocytes or T lymphocytes. Few B-cells detected???. Diagnosis provided by Dr Ashlyn Baeza ([facility] hematopathology division) This addendum is added to incorporate an outside pathology consultation report. The case was examined at [facility] by Dr. Monte (#[id number]) and the following diagnosis was rendered. A. [...] Denies any concerns related to today's visit. [facility] Medical History (Updated 06/07/25 @ 08:50 by Ngozi Carroll FINANCIAL ANALYST INTERN, FINANCIAL ANALYST INTERN-C) Encounter for antineoplastic chemotherapy and immunotherapy Encounter [...] Respiration 16 (more content not included)... Normal [facility] Uric Acidon 06-07-2025 URIC 5.1 mg/dL Normal 2.6-6.0 [facility] Comment on above: Result Comment: The drugs N-Acetylcysteine and Metamizole may falsely depress this assay. Performed By: #### L 504.2610, L501.1400, L100.0100, L500.4050 ####[facility] [address] [place], [address] Bedside Glucoseon 06-06-2025 FINGERSTICK GLU 109 mg/dL High 74-106 [facility] Comment on above: Result Comment: GORDO LOPEZ OF PATIENT CARE PER NURSING PROTOCOL Performed By: #### L 501.080 ####[facility] [address] [place], [address] CXR for Line Placementon CXR for Line Placement [facility] Imaging Services [address] [place] [address] CXR for Line Placement MR#: [id number] Acct: [id number] Name: JULIA PLASCENCIA Rep #: [id number] : 1945 F 80 From: Gurvinder Tafoya MD PCP: Dr. Cachorro Gonzalez MD Status: [facility] Study: CXR for Line Placement Date of Exam: 06/06/25 Exam# [id number] Ordering Dr: Von Velez PROCEDURE: CXR FOR [...] Right chest Port-A-Cath. No pneumothorax. Reading Location: [address] CC: Dr. Von Velez MD; Dr. Cachorro Gonzalez MD Tester Electronic Scale: Signed Normal [facility] Discharge Instructionon 05-24 Discharge Instruction [facility] Medical Records Department [address] [place] [address] Instructions for Home/Discharge Instructions 06/06/25 1413 MR#: [id number] Acct: [id number] Name: JULIA PLASCENCIA Rep #: [id number] : 1945 80 From: Von Velez MD PCP: Dr. Cachorro Gonzalez MD Status:REG [facility] Discharge Instructions Procedure Port-A-Cath Diet Discharge Diet: [...] With: Von Velez MD When: as needed [phone] Test Results: Test results from this visit will be discussed in further detail at your follow-up appointment, if applicable. Discharge Plan Admission Attending Provider: Von Velez Primary Care Provider: Cachorro Gonzalez Instructions Print Language: Tanzanian Discharge Orders/Prescriptions Prescriptions: No Action metformin 1,000 [...] CC: Dr. Cachorro Gonzalez MD Signed Normal [facility] deOrdered By: Von Velez on 06-06-2025 Glucose [Mass/Vol] 109 mg/dL High 74-106 [facility] Comment on above: MANAGEMENT OF PATIEN T CARE PER NURSING PROTOCOL MR/POSTOP.ANEon 06-06-2025 MR/POSTOP.[facility] Medical Records Department [address] [place] [address] Anesthesia Postop Eval I 06/06/251415 MR#: [id number] Acct: [id number] Name: JULIA PLASCENCIA Rep #: [id number] : 1945 80 From: Michael Marroquin CRNA PCP: Dr. Cachorro Gonzalez MD Status:REG [facility] Y Race: C Location: [place] [address] Anesthesia: Postop Eval I Current Vital Signs [...] 1 completed: Yes 06/06/251418 Date Michael Marroquin BACON DE RINDER Florigner Signature: Date CC: Signed Normal [facility] MR/[id number] 06-06-2025 MR/POSTOPAN2 [facility] Medical Records Department [address] [place] [address] Anesthesia Postop Eval II 06/06/252214 MR#: [id number] Acct: [id number] Name: JULIA PLASCENCIA Rep #: [id number] : 1945 80 From: Adam Peter MD PCP: Dr. Cachorro Gonzalez MD Status:[facility] Y Race: C Location: [facility] Anesthesia Postop Eval I Sum Postop Eval Completion status Anesthesia document: Postop Eval 1 completed: Yes Anesthesia Postop Eval I Summary Anesthesia Postop Eval I Summary: Anesthesia Postop Eval I: Assessment Summary Airway patent Yes 06/06/25 14:19 BACON DE RINDER.SHOF Spontaneous unlabored Yes 06/06/25 14:19 BACON DE RINDER.SHOF respirations Mental status Awake,Calm 06/06/25 14:19 BACON DE RINDER.SHOF nausea No 06/06/25 14:19 BACON DE RINDER.SHOF Vomiting No 06/06/25 14:19 BACON DE RINDER.SHOF Anesthesia Postop Eval I: Fluid Summary Crystalloid volume administer 600 06/06/25 14:19 BACON DE RINDER.SHOF (ml) Colloids volume administered ( ml) Blood Product volume administered (ml) Total IV fluid infused 600 06/06/25 14:19 BACON DE RINDER.SHOF Anesthesia Postop Eval I: Summary Notes Anesthesia Complication No 06/06/25 14:19 BACON DE RINDER.SHOF Anesthesia Complication Comment: Post-operative progress note Anesthesia: Postop Eval II Evaluation Mental status: Awake and Calm Pain Level: 1 nausea: No Vomiting: No Complications Anesthesia Complication: No 06/06/252215 Adam Michel Signature: Date CC: Signed Normal [facility] Operative Reporton 5 Operative Report [facility] Medical Records Department [address] [place] [address] Operative Report 06/06/25 1412 MR#: [id number] Acct: [id number] Name: JULIA PLASCENCIA Rep #: [id number] : 1945 80 From: Von Velez MD PCP: Dr. 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 Cachorro Gonzalez MD Signed [facility] Medical Records Department [address] [place] [address] PAT - Anesthesia 05/31/25 1622 MR#: [id number] Acct: [id number] Name: JULIA PLASCENCIA Rep #: [id number] : 1945 80 From: Tal Tillman MD PCP: Dr. Cachorro Gonzalez MD Status:PRE [facility] Y Race: C Location: [facility] Pre-Assessment Diagnosis/Proposed Procedure Planned Operative Procedure(s): RIGHT POSSIBLE LEFT IJ PORT INSERTION Anesthesia History Anesthesia History - display mechanic: Anesthesia History - display mechanic Hx Hospitalization No 05/31/25 14:40 Any Problems [...] take am of surgery PONV PONV - display mechanic: PONV - display mechanic Female Yes 05/31/25 14:40 HX of Motion [...] 05/25/25 09:18 Respiratory Assessment Respiratory Assessment - display mechanic: Respiratory Tract Infection Hx - display mechanic Hx Respiratory Tract Infection No 05/31/25 14:40 STOP Sleep Apnea STOP Sleep Apnea - display mechanic: STOP Sleep Apnea - display mechanic Hx Hypertension No: hypotension 05/31/25 14:40 Hx [...] Tobacco Use History Tobacco Use History - display mechanic: Tobacco Use History - display mechanic Tobacco Use Smoking Status Never smoker 05/31/25 14:40 Hx Tobacco Use No 05/31/25 14:40 Years Smoking Packs Smoked per Day Smoking Cessation Date was within the last 15 years Hx Smoking Cessation Date Hx Smoking Cessation Counseling Hematologic Medial History Hematologic Hx - display mechanic: Hematologic Medical Hx - coding consultant Hx of Blood Transfusion Yes 05/31/25 14:40 [...] confused, unrespo /Reproduction History /Reproductive History - display mechanic: /Reproductive Hx- display mechanic Hx Now No 05/31/25 14:40 Gestational Age [...] H istory (more content not included)... Normal [facility] Surgery Visit Reporton 05-29 Surgery Visit Report [facility] [address] [place] [address] OFFICE VISIT Date of Service: 05/29/25 MR#: [id number] Acct: [id number] Name: JULIA PLASCENCIA Rep #: [id number] : 1945 Provider: Dr. Von chun [...] blood disorders, (more content not included)... Normal [facility] Oncology Visit Reporton Oncology Visit Report [facility] [address] [place] [address] OFFICE VISIT Date of Service: 05/25/25 0911 MR#: [id number] Acct: [id number] Name: JULIA PLASCENCIA Rep #: [id number] : 1945 From: Ngozi Carroll NP FINANCIAL ANALYST INTERN -C Age/Sex: 80/F [place] [facility] Status: Signed HPI Subjective Date of Service 05/25/25 Chief Complaint Chemotherapy Education- [facility] History of Present Illness 80-year-old female who [...] Note: This case will be sent to [facility] for formal consultation with the hematopathology division of the Pathology Department, to rule out a lymphoproliferative disorder. A separate report from [facility] will follow. IHCs were obtained and will be reported by the employee relations consultant pathologist. COMMENT: A portion of the tissue was sent in RPMI for flow cytometry to [facility]. The flow cytometry showed ???no immunophenotypic evidence of an abnormal population of B lymphocytes or T lymphocytes. Few B-cells detected???. Diagnosis provided by Dr Ashlyn Baeza ([facility] hematopathology division) This addendum is added to incorporate an outside pathology consultation report. The case was examined at [facility] by Dr. Monte (#[id number]) and the following diagnosis was rendered. A. [...] support system by way of adult children. [facility] Medical History (Updated 05/25/25 @ 16:48 by Ngozi Carroll NP, FINANCIAL ANALYST INTERN-C) Encounter for education DLBCL (diffuse large B [...] documented; Den (more content not included)... Normal [facility] Oncology Visit Reporton 04-26 Oncology Visit Report [facility] [address] [place] [address] OFFICE VISIT Date of Service: 05/23/25 1436 MR#: [id number] Acct: [id number] Name: JULIA PLASCENCIA Rep #: [id number] : 1945 From: Ratna Bell MD Age/Sex: 80/F Location[place] [facility] Status: Signed HPI Subjective Date of Service [...] Note: This case will be sent to [facility] for formal consultation with the hematopathology division of the Pathology Department, to rule out a lymphoproliferative disorder. A separate report from [facility] will follow. IHCs were obtained and will be reported by the employee relations consultant pathologist. COMMENT: A portion of the tissue was sent in RPMI for flow cytometry to [facility]. The flow cytometry showed ???no immunophenotypic evidence of an abnormal population of B lymphocytes or T lymphocytes. Few B-cells detected???. Diagnosis provided by Dr Ashlyn Baeza ([facility] hematopathology division) This addendum is added to incorporate an outside pathology consultation report. The case was examined at [facility] by Dr. Monte (#[id number]) and the following diagnosis was rendered. A. [...] nodule in the spleen consistent with lymphoma. [facility] Medical History DLBCL (diffuse large B cell [...] Gastrointestinal: Report (more content not included)... Normal [facility] PET/CT Tumor Base -Thigh Ini ton 05-16-2025 PET/CT Tumor Base -Thigh Init [facility] Imaging Services [address] [place] [address] PET/CT Tumor Base -Thigh Init MR#: [id number] Acct: [id number] Name: JULIA PLASCENCIA Rep #: [id number] : 1945 F 80 From: Austin Briggs MD PCP: Dr. Cachorro Gonzalez MD Status: REG RCR Study: PET/CT Tumor Base -Thigh Init Date of Exam: Exam# [id number] Ordering Dr: Ratna Bell MD PROCEDURE: PET/CT [...] 2. Other findings as noted. Reading Location: [id number] CC: Dr. Ratna Bell MD; Dr. Cachorro Gonzalez MD Tester Electronic Scale: Signed [facility] Hepatitis B/C Profile VIIIon 05-12-2025 HEPATITIS INTER [facility] Comment on above: Result Comment: TEST RESULTS [...] to indicate HCV infection. TESTING PERFORMED AT [facility]. ORIGINAL REPORT ON FILE IN LAB CONTAINS ADDITIONAL TEST SITE INFORMATION. Performed By: #### L 3000.0800, L503.6030, L504.2610, L100.0100, L503.6550, L503.0106, L500.4050 ####[facility] [address] [place], [address] Absolute lymphocyte countOrd ered By: Ratna Bell on 05-11-2025 Lymphocytes Auto (Unsp spec) [#/Vol] 1.15 10*3/uL 0.83-4.51 [facility] Absolute neutrophil countOrd ered By: Ratna Bell on 05-11-2025 Neutrophils (Bld) [#/Vol] 5.2 10*3/uL 2.0-7.7 [facility] Anion gap in Serum or Plasma Ordered By: Ratna Arabella on 05-11-2025 Anion gap [Moles/Vol] 13 mmol/L 5- [facility] Automated lymphocyte count a s percentage of total leukocytesOrdered By: Ratna Arabella on 05-11-2025 Lymphocytes/100 WBC Auto (Unsp spec) 16.3 % Low - [facility] BUN/creatinine ratioOrdered By: [facility] on 05-11-2025 Urea nitrogen/Creatinine [Mass ratio] 18.8 mg/mg 10- [facility] Basophil percentageOrdered B y: Robpreeit Bell on 05-11-2025 Basophils/100 WBC (Bld) 0.6 % 0- [facility] Bilirubin, totalOrdered By: Robpreeti Bell on 05-11-2025 Bilirubin [Mass/Vol] 0.20 mg/dL 0.00-1.30 [facility] CBC W/Diff, Automatedon 04-24 Absolute Lymph 1.15 X10 3/uL Normal 0.83-4.51 [facility] Comment on above: Performed By: #### L 3000.0800, L503.6030, L504.2610, L100.0100, L503.6550, L503.0106, L500.4050 #### [facility] [address] [place], [address] Absolute Neut 5.2 X10 3/uL Normal 2.0-7.7 [facility] Comment on above: Performed By: #### L 3000.0800, L503.6030, L504.2610, L100.0100, L503.6550, L503.0106, L500.4050 #### [facility] [address] [place], [address] Basophils/100 WBC (Bld) 0.6 % Normal 0-1 [facility] Comment on above: Performed By: #### L 3000.0800, L503.6030, L504.2610, L100.0100, L503.6550, L503.0106, L500.4050 #### [facility] [address] [place], [address] Eosinophils/100 WBC (Bld) 2.5 % Normal 0-5 [facility] Comment on above: Performed By: #### L 3000.0800, L503.6030, L504.2610, L100.0100, L503.6550, L503.0106, L500.4050 #### [facility] [address] [place], [address] Erythrocyte distribution width (RBC) [Ratio] 14.6 % Normal 11.6-14.6 [facility] Comment on above: Performed By: #### L 3000.0800, L503.6030, L504.2610, L100.0100, L503.6550, L503.0106, L500.4050 #### [facility] [address] [place], [address] Hematocrit (Bld) [Volume fraction] 36.9 % Low 37-47 [facility] Comment on above: Performed By: #### L 3000.0800, L503.6030, L504.2610, L100.0100, L503.6550, L503.0106, L500.4050 #### [facility] [address] [place], [address] Hemoglobin (Bld) [Mass/Vol] 12.1 g/dL Normal 12.0-15.0 [facility] Comment on above: Performed By: #### L 3000.0800, L503.6030, L504.2610, L100.0100, L503.6550, L503.0106, L500.4050 #### [facility] [address] [place], [address] IG% 0.300 Normal 0.0-0.9 [facility] Comment on above: Result Comment: IG% - Immature Granulocytes (promyelocytes, myelocytes and metamyelocytes) > 1% indicates that a LEFT SHIFT is Present. Performed By: #### L 3000.0800, L503.6030, L504.2610, L100.0100, L503.6550, L503.0106, L500.4050 #### [facility] [address] [place], [address] Lymphocytes/100 WBC (Bld) 16.3 % Low 19-41 [facility] Comment on above: Performed By: #### L 3000.0800, L503.6030, L504.2610, L100.0100, L503.6550, L503.0106, L500.4050 #### [facility] [address] [place], [address] MCH (RBC) [Entitic mass] 27.5 pg Normal 27.0-32.0 [facility] Comment on above: Performed By: #### L 3000.0800, L503.6030, L504.2610, L100.0100, L503.6550, L503.0106, L500.4050 #### [facility] [address] [place], [address] MCHC (RBC) [Mass/Vol] 32.8 g/dL Normal 32-36 [facility] Comment on above: Performed By: #### L 3000.0800, L503.6030, L504.2610, L100.0100, L503.6550, L503.0106, L500.4050 #### [facility] [address] [place], [address] MCV (RBC) [Entitic vol] 83.9 fL Normal 81-99 [facility] Comment on above: Performed By: #### L 3000.0800, L503.6030, L504.2610, L100.0100, L503.6550, L503.0106, L500.4050 #### [facility] [address] [place], [address] Monocytes/100 WBC (Bld) 6.4 % Normal 0-10 [facility] Comment on above: Performed By: #### L 3000.0800, L503.6030, L504.2610, L100.0100, L503.6550, L503.0106, L500.4050 #### [facility] [address] [place], [address] Neutrophils/100 WBC (Bld) 73.9 % High 47-70 [facility] Comment on above: Performed By: #### L 3000.0800, L503.6030, L504.2610, L100.0100, L503.6550, L503.0106, L500.4050 #### [facility] [address] [place], [address] Nucleated RBC (Bld) [#/Vol] 0 10*3/uL Normal 0-5 [facility] Comment on above: Performed By: #### L 3000.0800, L503.6030, L504.2610, L100.0100, L503.6550, L503.0106, L500.4050 #### [facility] [address] [place], [address] Platelet mean volume (Bld) [Entitic vol] 10.0 fL Normal 6.2-12.0 [facility] Comment on above: Performed By: #### L 3000.0800, L503.6030, L504.2610, L100.0100, L503.6550, L503.0106, L500.4050 #### [facility] [address] [place], [address] Platelets (Bld) [#/Vol] 248 10*3/uL Normal 150-450 [facility] Comment on above: Performed By: #### L 3000.0800, L503.6030, L504.2610, L100.0100, L503.6550, L503.0106, L500.4050 #### [facility] [address] [place], [address] RBC (Bld) [#/Vol] 4.40 10*6/uL Normal 4.2-5.4 [facility] Comment on above: Performed By: #### L 3000.0800, L503.6030, L504.2610, L100.0100, L503.6550, L503.0106, L500.4050 #### [facility] [address] [place], [address] RDW SD 44.8 fl High 35.1-43.9 [facility] Comment on above: Performed By: #### L 3000.0800, L503.6030, L504.2610, L100.0100, L503.6550, L503.0106, L500.4050 #### [facility] [address] [place], [address] WBC (Bld) [#/Vol] 7.1 10*3/uL Normal 4.4-11.0 [facility] Comment on above: Performed By: #### L 3000.0800, L503.6030, L504.2610, L100.0100, L503.6550, L503.0106, L500.4050 #### [facility] [address] [place], [address] Carbon dioxide, total [Moles /volume] in Central venous bloodOrdered By: Ratna Bell on 05-11-2025 CO2 [Moles/Vol] 24.5 mmol/L 21.0-32.0 [facility] Chloride assayOrdered By: Prosper Bell on 05-11-2025 Chloride [Moles/Vol] 102 mmol/L 98-108 [facility] Comprehensive Metabolic Prof ilon 05-11-2025 Albumin [Mass/Vol] 4.3 g/dL Normal 3.4-4.8 [facility] Comment on above: Performed By: #### L 3000.0800, L503.6030, L504.2610, L100.0100, L503.6550, L503.0106, L500.4050 #### [facility] [address] [place], [address] Albumin/Globulin [Mass ratio] 1.6 {ratio} Normal 0.9-2.4 [facility] Comment on above: Performed By: #### L 3000.0800, L503.6030, L504.2610, L100.0100, L503.6550, L503.0106, L500.4050 #### [facility] [address] [place], [place], [id number] (698) ALK PHOS 84 U/L Normal 35-104 [facility] Comment on above: Performed By: #### L 3000.0800, L503.6030, L504.2610, L100.0100, L503.6550, L503.0106, L500.4050 #### [facility] [address] [place], [address] ALT [Catalytic activity/Vol] 20 U/L Normal <=34 [facility] Comment on above: Performed By: #### L 3000.0800, L503.6030, L504.2610, L100.0100, L503.6550, L503.0106, L500.4050 #### [facility] [address] [place], [address] AST [Catalytic activity/Vol] 22 U/L Normal <=31 [facility] Comment on above: Performed By: #### L 3000.0800, L503.6030, L504.2610, L100.0100, L503.6550, L503.0106, L500.4050 #### [facility] [address] [place], [address] Bilirubin [Mass/Vol] 0.20 mg/dL Normal 0.00-1.30 [facility] Comment on above: Performed By: #### L 3000.0800, L503.6030, L504.2610, L100.0100, L503.6550, L503.0106, L500.4050 #### [facility] [address] [place], [address] BUN/CRE 18.8 RATIO Normal 10-20 [facility] Comment on above: Performed By: #### L 3000.0800, L503.6030, L504.2610, L100.0100, L503.6550, L503.0106, L500.4050 #### [facility] [address] [place], [address] Calcium [Mass/Vol] 9.7 mg/dL Normal 7.6-11.0 [facility] Comment on above: Performed By: #### L 3000.0800, L503.6030, L504.2610, L100.0100, L503.6550, L503.0106, L500.4050 #### [facility] [address] [place], [address] Chloride [Moles/Vol] 102 mmol/L Normal 98-108 [facility] Comment on above: Performed By: #### L 3000.0800, L503.6030, L504.2610, L100.0100, L503.6550, L503.0106, L500.4050 #### [facility] [address] [place], [address] CO2 [Moles/Vol] 24.5 mmol/L Normal 21.0-32.0 [facility] Comment on above: Performed By: #### L 3000.0800, L503.6030, L504.2610, L100.0100, L503.6550, L503.0106, L500.4050 #### [facility] [address] [place], [address] Creatinine [Mass/Vol] 0.53 mg/dL Low 0.70-1.20 [facility] Comment on above: Performed By: #### L 3000.0800, L503.6030, L504.2610, L100.0100, L503.6550, L503.0106, L500.4050 #### [facility] [address] [place], [address] GAP 13 Normal 5-15 [facility] Comment on above: Performed By: #### L 3000.0800, L503.6030, L504.2610, L100.0100, L503.6550, L503.0106, L500.4050 #### [facility] [address] [place], [address] GFR/1.73 sq M.predicted among non-blacks MDRD (S/P/Bld) [Vol rate/Area] 93 mL/min/{1.73_m2} Normal >60 [facility] Comment on above: Result Comment: mL/m in/1.73m2 CKD-EPI Creatinine Equation (2020) Performed By: #### L 3000.0800, L503.6030, L504.2610, L100.0100, L503.6550, L503.0106, L500.4050 #### [facility] [address] [place], [address] Globulin (S) [Mass/Vol] 2.7 g/dL Normal 2.2-4.2 [facility] Comment on above: Performed By: #### L 3000.0800, L503.6030, L504.2610, L100.0100, L503.6550, L503.0106, L500.4050 #### [facility] [address] [place], [address] Glucose [Mass/Vol] 75 mg/dL Normal 70-99 [facility] Comment on above: Performed By: #### L 3000.0800, L503.6030, L504.2610, L100.0100, L503.6550, L503.0106, L500.4050 #### [facility] [address] [place], [address] Potassium [Moles/Vol] 4.2 mmol/L Normal 3.3-5.1 [facility] Comment on above: Performed By: #### L 3000.0800, L503.6030, L504.2610, L100.0100, L503.6550, L503.0106, L500.4050 #### [facility] [address] [place], [address] Sodium [Moles/Vol] 139 mmol/L Normal 133-145 [facility] Comment on above: Performed By: #### L 3000.0800, L503.6030, L504.2610, L100.0100, L503.6550, L503.0106, L500.4050 #### [facility] [address] [place], [address] T PROT 7.0 g/dL Normal 5.9-8.4 [facility] Comment on above: Performed By: #### L 3000.0800, L503.6030, L504.2610, L100.0100, L503.6550, L503.0106, L500.4050 #### [facility] [address] [place], [address] Urea nitrogen [Mass/Vol] 10 mg/dL Normal 4-19 [facility] Comment on above: Performed By: #### L 3000.0800, L503.6030, L504.2610, L100.0100, L503.6550, L503.0106, L500.4050 #### [facility] [address] [place], [place], [id number] Eosinophil percentageOrdered By: Ratna Bell on 05-11-2025 Eosinophils/100 WBC (Bld) 2.5 % 0-5 [facility] Erythrocyte distribution wid th ratioOrdered By: [facility] Arabella on 05-11-2025 Erythrocyte distribution width (RBC) [Ratio] 14.6 % 11.6-14.6 [facility] Erythrocyte distribution wid th standard deviationOrdered By: [facility] Arabella on 05-11-2025 Erythrocyte distribution width (RBC) [Ratio] 44.8 fl High 35.1-43.9 [facility] Ferritinon 05-11-2025 Ferritin [Mass/Vol] 48 ng/mL Normal 22-378 [facility] Comment on above: Performed By: #### L 3000.0800, L503.6030, L504.2610, L100.0100, L503.6550, L503.0106, L500.4050 ####[facility] [address] [place], [place], [id number] Glomerular filtration rate ( GFR) estimation/1.73 sq m using serum, plasma, or whole bOrdered By: [facility] Bell on 05-11-2025 GFR/1.73 sq M.predicted among non-blacks MDRD (S/P/Bld) [Vol rate/Area] 93 mL/min/{1.73_m2} >60 [facility] Comment on above: mL/min/1.73m2 CKD-EP I Creatinine Equation (2020) Hematocrit Auto (Bld) [Volum e fraction]Ordered By: Ratna Bell on 05-11-2025 Hematocrit (Bld) [Volume fraction] 36.9 % Low 37-47 [facility] Hemoglobin measurementOrdere d By: Ratna Bell on 05-11-2025 Hemoglobin (Bld) [Mass/Vol] 12.1 g/dL 12.0-15.0 [facility] Immature granulocytes/100 WB C Auto (Bld)Ordered By: [facility] Bell on 05-11-2025 Immature granulocytes/100 WBC (Bld) 0.300 % 0.0-0.9 [facility] Comment on above: IG% - Immature Granu locytes (promyelocytes, myelocytes and metamyelocytes) > 1% indicates that a LEFT SHIFT is Present. Iron measurement (mass/mass) Ordered By: Ratna Bell on 05-11-2025 Iron (Unsp spec) [Mass/Mass] 61 ug/dL 50-170 [facility] Iron+Iron Binding Capacityon 05-11-2025 Iron [Mass/Vol] 61 ug/dL Normal 50-170 [facility] Comment on above: Performed By: #### L 3000.0800, L503.6030, L504.2610, L100.0100, L503.6550, L503.0106, L500.4050 #### [facility] [address] [facility] [address] IRON SATURATION 15.8 Normal 13-59 [facility] Comment on above: Performed By: #### L 3000.0800, L503.6030, L504.2610, L100.0100, L503.6550, L503.0106, L500.4050 #### [facility] [address] [place], [address] TIBC 387 ug/dL Normal 250-450 [facility] Comment on above: Performed By: #### L 3000.0800, L503.6030, L504.2610, L100.0100, L503.6550, L503.0106, L500.4050 #### [facility] [address] [place], [address] UIBC 326 ug/dL Normal 228-428 [facility] Comment on above: Performed By: #### L 3000.0800, L503.6030, L504.2610, L100.0100, L503.6550, L503.0106, L500.4050 #### [facility] [address] [place], [address] LDHon 05-11-2025 LDH 192 U/L Normal 84-246 [facility] Comment on above: Order Comment: 1 Performed By: #### L 3000.0800, L503.6030, L504.2610, L100.0100, L503.6550, L503.0106, L500.4050 ####[facility] [address] [place], [address] Laboratory - Chemistry and C hemistry - challengeOrdered By: [facility] Bell on 05-11-2025 AST [Catalytic activity/Vol] 22 U/L <32 [facility] Lactate dehydrogenase (LDH) measurementOrdered By: [facility] Bell on 05-11-2025 LDH [Catalytic activity/Vol] 192 U/L 84-246 [facility] MCV (mean corpuscular volume ) determinationOrdered By: [facility] Bell on 05-11-2025 MCV (RBC) [Entitic vol] 83.9 fL 81-99 [facility] Mean corpuscular hemoglobin (MCH) determinationOrdered By: [facility] Arabella on 05-11-2025 MCH (RBC) [Entitic mass] 27.5 pg 27.0-32.0 [facility] Mean corpuscular hemoglobin concentration (MCHC) determinationOrdered By: [facility] Arabella on 05-11-2025 MCHC (RBC) [Mass/Vol] 32.8 g/dL 32-36 [facility] Mean platelet volume determi nationOrdered By: [facility] Bell on 05-11-2025 Platelet mean volume (Bld) [Entitic vol] 10.0 fL 6.2-12.0 [facility] Monocyte percentageOrdered B y: Ratna Bell on 05-11-2025 Monocytes/100 WBC (Bld) 6.4 % 0-10 [facility] Neutrophil percentageOrdered By: [facility] Bell on 05-11-2025 Neutrophils/100 WBC (Bld) 73.9 % High 47-70 [facility] No Panel InformationOrdered By: Ratna Bell on 05-11-2025 Hepatitis Interpretation See comment [facility] Comment on above: TEST RESULTS LIMITSV iral [...] to indicate HCV infection. TESTING PERFORMED AT [facility]. ORIGINAL REPORT ON FILE IN LAB CONTAINS ADDITIONAL TEST SITE INFORMATION. Unsaturated Iron Binding Capacity 326 ug/dL 228-428 [facility] Nucleated red blood cell per centageOrdered By: Ratna Bell on 05-11-2025 Nucleated RBC/100 WBC (Bld) [Ratio] 0 % 0-5 [facility] Oncology Visit Reporton 04-24 Oncology Visit Report [facility] [place] [address] OFFICE VISIT Date of Service: 05/11/25 1012 MR#: [id number] Acct: [id number] Name: JULIA PLASCENCIA Rep #: [id number] : 1945 From: Ratna Bell MD Age/Sex: 80/F [place] [facility] Status: Signed HPI Subjective Date of Service [...] Note: This case will be sent to [facility] for formal consultation with the hematopathology division of the Pathology Department, to rule out a lymphoproliferative disorder. A separate report from [facility] will follow. IHCs were obtained and will be reported by the employee relations consultant pathologist. COMMENT: A portion of the tissue was sent in RPMI for flow cytometry to [facility]. The flow cytometry showed ???no immunophenotypic evidence of an abnormal population of B lymphocytes or T lymphocytes. Few B-cells detected???. Diagnosis provided by Dr Ashlyn Baeza ([facility] hematopathology division) This addendum is added to incorporate an outside pathology consultation report. The case was examined at [facility] by Dr. Monte (#[id number]) and the following diagnosis was rendered. A. [...] not otherwise specified, with germinal center immunophenotype. [facility] Medical History (Updated 05/11/25 @ 10:51 by [...] as documented (more content not included)... Normal [facility] Platelet countOrdered By: Prosper Bell on 05-11-2025 Platelets (Bld) [#/Vol] 248 10*3/uL 150-450 [facility] Potassium measurement (mass/ volume)Ordered By: Ratna Bell on 05-11-2025 Potassium (Unsp spec) [Mass/Vol] 4.2 mmol/L 3.3-5.1 [facility] RBC Auto (Bld) [#/Vol]Ordere d By: Ratna Bell on 05-11-2025 RBC (Bld) [#/Vol] 4.40 10*6/uL 4.2-5.4 [facility] Serum creatinine measurement (mass/volume)Ordered By: Ratna Bell on 05-11-2025 Creatinine [Mass/Vol] 0.53 mg/dL Low 0.70-1.20 [facility] Serum globulin measurementOr dered By: Ratna Bell on 05-11-2025 Globulin (S) [Mass/Vol] 2.7 g/dL 2.2-4.2 [facility] Serum glucose measurement (m ass/volume)Ordered By: Ratna Bell on 05-11-2025 Glucose [Mass/Vol] 75 mg/dL 70-99 [facility] Serum hepatitis B virus core antibody detectionOrdered By: Ratna Bell on 05-11-2025 HBV core Ab Ql (S) Not Reportable [facility] Serum or plasma alanine morejon otransferase (ALT) measurementOrdered By: Ratna Bell on 05-11-2025 ALT [Catalytic activity/Vol] 20 U/L <35 [facility] Serum or plasma albumin arya urement (mass/volume)Ordered By: Ratna Bell on 05-11-2025 Albumin [Mass/Vol] 4.3 g/dL 3.4-4.8 [facility] Serum or plasma albumin/glob ulin mass ratioOrdered By: Ratna Bell on 05-11-2025 Albumin/Globulin [Mass ratio] 1.6 {ratio} 0.9-2.4 [facility] Serum or plasma alkaline altagracia sphatase measurementOrdered By: Robpreeti Bell on 05-11-2025 ALP [Catalytic activity/Vol] 84 U/L 35-104 [facility] Serum or plasma calcium arya urement (mass/volume)Ordered By: Robpreeti Bell on 05-11-2025 Calcium [Mass/Vol] 9.7 mg/dL 7.6-11.0 [facility] Serum or plasma ferritin aashish surement (mass/volume)Ordered By: Ratna Bell on 05-11-2025 Ferritin [Mass/Vol] 48 ng/mL 22-378 [facility] Serum or plasma hepatitis B virus surface antigen detection by immunoassayOrdered By: Robpreeti Bell on 05-11-2025 HBV surface Ag IA Ql Not Reportable [facility] Serum or plasma iron saturat ion measurement (mass fraction)Ordered By: Ratna Bell on 05-11-2025 Iron saturation [Mass fraction] 15.8 % 13-59 [facility] Serum or plasma urea nitroge n measurement (mass/volume)Ordered By: Ratna Bell on 05-11-2025 Urea nitrogen [Mass/Vol] 10 mg/dL 4-19 [facility] Sodium levelOrdered By: Rob preeti Arabella on 05-11-2025 Sodium [Moles/Vol] 139 mmol/L 133-145 [facility] Total proteinOrdered By: Dion cristiano Arabella on 05-11-2025 Protein [Mass/Vol] 7.0 g/dL 5.9-8.4 [facility] Vitamin B12on 05-11-2025 Cobalamin (Vitamin B12) [Mass/Vol] 2537 pg/mL High 180-914 [facility] Comment on above: Performed By: #### L 3000.0800, L503.6030, L504.2610, L100.0100, L503.6550, L503.0106, L500.4050 ####[facility] [address] [place], [address] Vitamin B12 ser/plasOrdered By: Ratna Bell on 05-11-2025 Cobalamin (Vitamin B12) [Mass/Vol] 2537 pg/mL High 180-914 [facility] White blood cell (WBC) count Ordered By: Ratna Bell on 05-11-2025 WBC (Bld) [#/Vol] 7.1 10*3/uL 4.4-11.0 [facility] Cardiology Visit Reporton Cardiology Visit Report [facility] [address] [place], [place] [address] OFFICE VISIT Date of Service: 05/08/25 MR#: [id number] Acct: [id number] Name: JULIA PLASCENCIA Rep #: [id number] : 1945 Provider: Dr. 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 Normal [facility] SURG PATH REQUESTon 04-25-20 25 Addendum Normal [facility] Comment on above: Result Comment: No r earrangements of BCL2, BCL6 or MYC genes are detected by FISH. 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 Addendum electronically signed by Jayden Monte MD, PhD on 05/02/2025 at 1906 EDT Performed By: #### S URGP #### [facility] (DEFAULT) [address] [place] [address] Case Report Normal [facility] Comment on above: Result Comment: Surg ical Pathology Report Case: [id number] Authorizing Provider: Kandi Rodriguez MD Collected: 04/25/2025 07:53 AM Ordering Location: [facility] Received: 04/25/2025 07:53 AM [facility] Pathologist: Jayden Monte MD, PhD Specimen: SURG PATH, A) Left breast lymph node, left axilla Performed By: #### S URGP #### [facility] (DEFAULT) [address] [place], [place] [address] Clinical History Normal [facility] Comment on above: Result Comment: Rece ived is a request for second opinion consultation by Dr. Kandi Rodriguez at [facility]. Clinical Information: 80 F with Left breast/axillary mass, core bx [facility] [id number]. Lymphoid tissue negative for carcinoma. Flow done @ [facility] is negative for LND. Previous Pathology/History of Cancer/Radiation Therapy: NA Note: The slide images are available on the [place] [id number]. Physician Comments/Concerns: R/O lymphoproliferative disorder Preoperative Diagnosis: Left breast mass / lymph node. Performed By: #### S URGP #### [facility] (DEFAULT) [address] [place] [address] Diagnosis Comments Normal [facility] Comment on above: Result Comment: As d [...] Performed By: #### S URGP #### [facility] (DEFAULT) [address] [place] [address] Gross Description Normal [facility] Comment on above: Result Comment: The following material(s) are received from [facility], [address] [place] [address] with an identifying Surgical Pathology Report: 2 H&E and 10 non-H&E slides labeled [id number]. Subsequently received from the same facility on April 27, 2025, is/are 1 paraffin block(s) marked [id number] (A2), which is/are submitted to [facility] Histology/IHC Laboratory for re-cutting and additional staining: CD30 quant, CMYC quant, EBV-encoded RNA (BALA) by in situ hybridization (AMOL) with negative control, FISH for MYC, BCL2, BCL6. Outside materials are returned in 60 days under separate cover with our number recorded on them. Grosser for this case was: Nneka Cooper Performed By: #### S URGP #### [facility] (DEFAULT) [address] [place] [address] Microscopic Description Normal [facility] Comment on above: Result Comment: A mi [...] with the guidelines of the [employer] for the reporting of cancer specimens. *Lymphoid neoplasms are classified according to: - WHO Classification of Tumours Editorial Board. Haematolymphoid tumours. Gagandeep (Lyly): International Agency for Research on Cancer; (WHO classification of tumours series, 5th ed.; vol. 112021). https://publications.iarc.fr. - The International Consensus Classification of Mature Lymphoid Neoplasms: a report from the Clinical Advisory Committee. Blood. 2021May 08;140(11):1714-8113. doi: 10.1182/blood.7000814790. Erratum in: Blood. 2022Sep 18;141(4):437. PMID: 12407694; PMCID: [id number]. Manual quantitative immunohistochemical assessment of BCL2, BCL6, [...] both CD10 and MUM1 expression in DLBCL. [id number], MUM1-positive DLBCLs are classified as GCB subtype [...] developed by and are performed at the [facility], Histology and IHC Lab, [address] [place] [address]. All Immunofluorescent (IF) tests were developed by and are performed at the [facility], Renal Division, [address] [place] [address]. All tests reported here, except for PD-L1, [...] developed by and are performed at the [facility], Histology and IHC Lab, [address] [place] [address], [place] [address]. All Immunofluorescent (IF) tests were developed by and are performed at the [facility], Renal Division, [address] [place] [address]. All tests reported here, except for PD-L1, have not been cleared by or approved by the US Food and Drug Administration (FDA). The laboratory is regulated under CLIA as qualified to perfor (more content not included)... Performed By: #### S URGP #### [facility] (DEFAULT) [address] [place] [address] Pathologic Diagnosis [facility] Comment on above: Result Comment: Outs irma Slides [id number] (04/10/25) A. 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 at 1601 EDT Performed By: #### S URGP #### [facility] (DEFAULT) [address] [place] [address] Professional Interpretation Performed at: [facility] Comment on above: Result Comment: [facility] For Immediate Release [facility] Yes [address] [place] [address] Performed By: #### S URGP #### [facility] (DEFAULT) [address] [place] [address] IMMUNOPHENOTYPINGon 04-10-20 BKR DX CODE Use Ordering [facility] Comment on above: Performed By: #### I MMUNOPHENOTYPING #### [facility] (DEFAULT) [address] [place] [address] Flow Interpreted by: Maksim Baeza MD, PhD [facility] Comment on above: Performed By: #### I MMUNOPHENOTYPING #### [facility] (DEFAULT) [address] [place] [address] IMMUNOPHENOTYPING FLOW See Scanned Result Normal [facility] Comment on above: Performed By: #### I MMUNOPHENOTYPING #### [facility] (DEFAULT) [address] [place] [address] SAMPLE TYPE Tissue/Fluid Normal [facility] Comment on above: Performed By: #### I MMUNOPHENOTYPING #### [facility] (DEFAULT) [address] [place] [address] Immunohistochemical Stainson 04-10-2025 Immunohistochemical Stains Patient Age/Sex Location Account Attending Physician JULIA PLASCENCIA 80/F LABSPEC [id number] Dr. Von Velez MD Specimen: [id number] Received: 04/10/25 Status: OSMAN Pope Num: [id number] Spec Type: BREAST BX Subm Dr: Dr. [...] Note: This case will be sent to [facility] for formal consultation with the hematopathology division of the Pathology Department, to rule out a lymphoproliferative disorder. A separate report from [facility] will follow. IHCs were obtained and will be reported by the employee relations consultant pathologist. COMMENT: A portion of the tissue was sent in RPMI for flow cytometry to [facility]. The flow cytometry showed no immunophenotypic evidence of an abnormal population of B lymphocytes or T lymphocytes. Few B-cells detected. Diagnosis provided by Dr Ashlyn Baeza ([facility] hematopathology division) (see report scanned into the EMR). MICROSCOPIC DESCRIPTION Slides are reviewed. All matched controls reacted appropriately. These tests were developed and their performance characteristics determined by [facility]. They may not have been cleared [...] fatty tissue coresA2: 1 hong tissue core TN 04/10/2025 CPT:85868,37582, 24588j8,86222 Patient Age/Sex Location Account Attending Physician JULIA PLASCENCIA 80/F LABSPEC [id number] Dr. Von Velez MD ADDENDUM Addendum 1 Entered: 05/03/25 This addendum is added to incorporate an outside pathology consultation report. The case was examined at [facility] by Dr. Monte (#[id number]) and the following diagnosis was rendered. A. [...] Account Attending Physician JULIA PLASCENCIA 80/F LABSPEC [id number] Dr. Von Velez MD Signed (signatur (more content not included)... Normal [facility] Comment on above: Performed By: #### P [facility] ####[facility] [address] [place], [address] Surgery Visit Reporton 04-10 Surgery Visit Report [facility] [address] [place] [address] OFFICE VISIT Date of Service: 04/10/25 MR#: [id number] Acct: [id number] Name: JULIA PLASCENCIA Rep #: [id number] : 1945 Provider: Dr. Von chun MD Age/Sex: 80/F Location: [facility] Status: Signed Intake Vital Signs 02/07/25 07:30 04/10/25 07:55 Height 5 ft 5 in 5 ft 5 in Weight: 162 lb BMI 26.9 BP 131/76 H Blood Pressure Location Rt brachial Position Sitting Respiration 16 Intake Visit Reasons: BIRADS 4 Chief Complaint: left breast mass Title Processor Required: No Is patient in pain?: No [...] cooperative Orientatio (more content not included)... Normal [facility] Bilat Brst Rey Stand Aloneo n 04-04-2025 [facility] Imaging Services [address] [place], [place] [address] Bilat Brst Rey Stand Alone MR#: [id number] Acct: [id number] Name: JULIA PLASCENCIA Rep #: [id number] : 1945 F 80 From: Pinky William MD PCP: Dr. Cachorro Gonzalez MD Status: [facility] Study: Bilat Brst Rey Stand Alone Date of Exam: 03/24 10/18 Exam# [id number] Ordering Dr: Cachorro Gonzalez MD EXAM: DIAG [...] be mailed to the patient. Reading Location: [facility] CC: Dr. Cachorro Gonzalez MD Tester Electronic Scale: Signed Normal [facility] Breast Limited Unilateralon 04-04-2025 Breast Limited Unilateral [facility] Imaging Services [address] [place] [address] 353401 Breast Limited Unilateral MR#: [id number] Acct: [id number] Name: UJLIA PLASCENCIA Rep #: [id number] : 1945 F 80 From: Pinky William MD PCP: Dr. Cachorro Gonzalez MD Status: REG CLI Study: Breast Limited Unilateral Date of Exam: Exam# [id number] Ordering Dr: Cachorro Gonzalez MD EXAM: DIAG [...] be mailed to the patient. Reading Location: [facility] CC: Dr. Cachorro Gonzalez MD Tester Electronic Scale: Signed Normal [facility] Breast imaging reportOrdered By: Pinky William on 04-04-2025 Study report [facility] Services [address] [place], [place] [address] DIAG MAMM W/CAD, BILAT MR#: [id number] Acct: [id number] Name: JULIA PLASCENCIA Rep #: [id number] : 1945 F 80 From: Annie William MD PCP: Dr. Cachorro Gonzalez MD Status: REG C SABI Study:DIAG MAMM W/CAD, BILAT Date of Exam: 04/04/25 Exam# [id number] Ordering Dr: Cachorro Gonzalez MD EXAM: DIAG [...] be mailed to the patient. Reading Location: [id number] CC: Dr. Cachorro Gonzalez MD ~ Tester Electronic Scale: Signed [facility] Study report [facility] Imaging Services [address] [place] [id number] Bilat Brst Rey Stand Alone MR#: [id number] Acct: [id number] Name: JULIA PLASCENCIA Rep #: [id number] : 1945 F 80 From: Annie William MD PCP: Dr. Cachorro Gonzalez MD Status: CARLO CELESTIN Study:Bilat Brst Rey Stand Alone Date of Exa m: 04/04/25 Exam# [id number] Ordering Dr: Cachorro Gonzalez MD EXAM: DIAG [...] be mailed to the patient. Reading Location: [facility] CC: Dr. Cachorro Gonzalez MD ~ Tester Electronic Scale: Signed [facility] DIAG MAMM W/CAD, BILATon DIAG MAMM W/CAD, BILAT [facility] Services [address] [place] [address] DIAG MAMM W/CAD, BILAT MR#: [id number] Acct: [id number] Name: JULIA PLASCENCIA Rep #: [id number] : 1945 F 80 From: Pinky William MD PCP: Dr. Cachorro Gonzalez MD Status: REG CLI Study: DIAG MAMM W/CAD, BILAT Date of Exam: 04/04/25 Exam# [id number] Ordering Dr: Cachorro Gonzalez MD EXAM: DIAG [...] be mailed to the patient. Reading Location: [id number] CC: Dr. Cachorro Gonzalez MD Tester Electronic Scale: Signed Normal [facility] Echocardiogram study reportO rdered By: Agustin Morataya on 03-05-2025 Study report [facility] [address] [place] [address] Echo Complete 03/03/25 2351 MR#: [id number] Acct: [id number] Name: JULIA PLASCENCIA Rep #:[id number] : [...] Cachorro Gonzalez MD ~ Date Dictated: 03/03/25 4326 Date Transcribed: 03/05/251656 Tester Electronic Scale: Signed [facility] Work Phone: Echo Completeon 03-04-2025 Echo Complete [facility] [address] [place] [address] Echo Complete 03/03/25 2351 MR#: [id number] Acct: [id number] Name: JULIA PLASCENCIA Rep #: [id number] : 1945 79 From: Agustin Morataya MD Attending Dr: Dr. Cachorro Gonzalez MD Status: REG CLI Ordering Dr: Cachorro Gonzalez MD Date: 03/04/25 Location: [facility] Sex: F C Admitted: Reason For Study [...] sec Doppler Measurements Calculations MV E max rex: 131.0 cm/sec [...] Dr. Cachorro Gonzalez MD Date Dictated: 03/03/25 6876 Date Transcribed: 03/05/251656 Tester Electronic Scale: Signed Normal [facility] Anion gap in Serum or Plasma Ordered By: Cachorro Gonzalez on 02-23-2025 Anion gap [Moles/Vol] 11 mmol/L - [facility] BUN/creatinine ratioOrdered By: Cachorro Gonzalez on 02-23-2025 Urea nitrogen/Creatinine [Mass ratio] 17.1 mg/mg - [facility] Basic Metabolic Profile (BMP )on 02-23-2025 BUN/CRE 17.1 RATIO Normal 06-12 [facility] Comment on above: Performed By: #### L 501.9520, L100.0500, L100.4500, L500.2500 ####[facility] [address] [place], [address] Calcium [Mass/Vol] 9.5 mg/dL Normal 7.6-11.0 [facility] Comment on above: Performed By: #### L 501.9520, L100.0500, L100.4500, L500.2500 ####[facility] [address] [place], [address] Chloride [Moles/Vol] 103 mmol/L Normal 98-108 [facility] Comment on above: Performed By: #### L 501.9520, L100.0500, L100.4500, L500.2500 ####[facility] [address] [place], [address] CO2 [Moles/Vol] 25.8 mmol/L Normal 21.0-32.0 [facility] Comment on above: Performed By: #### L 501.9520, L100.0500, L100.4500, L500.2500 ####[facility] [address] [place], [address] Creatinine [Mass/Vol] 0.51 mg/dL Low 0.70-1.20 [facility] Comment on above: Performed By: #### L 501.9520, L100.0500, L100.4500, L500.2500 ####[facility] [address] [place], [address] GAP 11 Normal 5-15 [facility] Comment on above: Performed By: #### L 501.9520, L100.0500, L100.4500, L500.2500 ####[facility] [address] [place], [address] GFR/1.73 sq M.predicted among non-blacks MDRD (S/P/Bld) [Vol rate/Area] 94 mL/min/{1.73_m2} Normal >60 [facility] Comment on above: Result Comment: mL/m in/1.73m2 CKD-EPI Creatinine Equation (2020) Performed By: #### L 501.9520, L100.0500, L100.4500, L500.2500 ####[facility] [address] [place], [address] Glucose [Mass/Vol] 113 mg/dL High 70-99 [facility] Comment on above: Performed By: #### L 501.9520, L100.0500, L100.4500, L500.2500 ####[facility] [address] [place], [address] Potassium [Moles/Vol] 4.2 mmol/L Normal 3.3-5.1 [facility] Comment on above: Performed By: #### L 501.9520, L100.0500, L100.4500, L500.2500 ####[facility] [address] [place], [address] Sodium [Moles/Vol] 140 mmol/L Normal 133-145 [facility] Comment on above: Performed By: #### L 501.9520, L100.0500, L100.4500, L500.2500 ####[facility] [address] [place], [address] Urea nitrogen [Mass/Vol] 9 mg/dL Normal 4-19 [facility] Comment on above: Performed By: #### L 501.9520, L100.0500, L100.4500, L500.2500 ####[facility] [address] [place], [address] Blood manual differential co mment interpretation (narrative result)Ordered By: Cachorro Gonzalez on 02-23-2025 Manual differential comment Telly (Bld) [Interp] SCANNED [facility] Comment on above: 2+ ANISOCYTOSIS CBC-Complete Blood Cnt No Di ffon 02-23-2025 Erythrocyte distribution width (RBC) [Ratio] 24.2 % High 11.6-14.6 [facility] Comment on above: Performed By: #### L 501.9520, L100.0500, L100.4500, L500.2500 ####[facility] [address] [place], [address] Hematocrit (Bld) [Volume fraction] 39.4 % Normal 37-47 [facility] Comment on above: Performed By: #### L 501.9520, L100.0500, L100.4500, L500.2500 ####[facility] [address] [place], [address] Hemoglobin (Bld) [Mass/Vol] 12.7 g/dL Normal 12.0-15.0 [facility] Comment on above: Performed By: #### L 501.9520, L100.0500, L100.4500, L500.2500 ####[facility] [address] [place], [address] MCH (RBC) [Entitic mass] 25.0 pg Low 27.0-32.0 [facility] Comment on above: Performed By: #### L 501.9520, L100.0500, L100.4500, L500.2500 ####[facility] [address] [place], [address] MCHC (RBC) [Mass/Vol] 32.2 g/dL Normal 32-36 [facility] Comment on above: Performed By: #### L 501.9520, L100.0500, L100.4500, L500.2500 ####[facility] [address] [place], [address] MCV (RBC) [Entitic vol] 77.7 fL Low 81-99 [facility] Comment on above: Performed By: #### L 501.9520, L100.0500, L100.4500, L500.2500 ####[facility] [address] [place], [address] Platelet mean volume (Bld) [Entitic vol] 10.1 fL Normal 6.2-12.0 [facility] Comment on above: Performed By: #### L 501.9520, L100.0500, L100.4500, L500.2500 ####[facility] [address] [place], [address] Platelets (Bld) [#/Vol] 201 10*3/uL Normal 150-450 [facility] Comment on above: Performed By: #### L 501.9520, L100.0500, L100.4500, L500.2500 ####[facility] [address] [place], [address] RBC (Bld) [#/Vol] 5.07 10*6/uL Normal 4.2-5.4 [facility] Comment on above: Performed By: #### L 501.9520, L100.0500, L100.4500, L500.2500 ####[facility] [address] [place], [address] RDW SD 64.2 fl High 35.1-43.9 [facility] Comment on above: Performed By: #### L 501.9520, L100.0500, L100.4500, L500.2500 ####[facility] [address] [place], [address] WBC (Bld) [#/Vol] 4.7 10*3/uL Normal 4.4-11.0 [facility] Comment on above: Performed By: #### L 501.9520, L100.0500, L100.4500, L500.2500 ####[facility] [address] [place], [address] Carbon dioxide, total [Moles /volume] in Central venous bloodOrdered By: Cachorro Gonzalez on 02-23-2025 CO2 [Moles/Vol] 25.8 mmol/L 21.0-32.0 [facility] Chloride assayOrdered By: Salvador Gonzalez on 02-23-2025 Chloride [Moles/Vol] 103 mmol/L 98-108 [facility] Differential Commenton 02-23 SMEAR COMMENT SCANNED Normal [facility] Comment on above: Result Comment: 2+ A NISOCYTOSIS Performed By: #### L 501.9520, L100.0500, L100.4500, L500.2500 ####[facility] [address] [place], [place], [address] Erythrocyte distribution wid th ratioOrdered By: Cachorro Gonzalez on 02-23-2025 Erythrocyte distribution width (RBC) [Ratio] 24.2 % High 11.6-14.6 [facility] Erythrocyte distribution wid th standard deviationOrdered By: Cachorro Gonzalez on 02-23-2025 Erythrocyte distribution width (RBC) [Ratio] 64.2 fl High 35.1-43.9 [facility] Glomerular filtration rate ( GFR) estimation/1.73 sq m using serum, plasma, or whole bOrdered By: Cachorro Gonzalez on 02-23-2025 GFR/1.73 sq M.predicted among non-blacks MDRD (S/P/Bld) [Vol rate/Area] 94 mL/min/{1.73_m2} >60 [facility] Comment on above: mL/min/1.73m2 CKD-EP I Creatinine Equation (2020) Hematocrit Auto (Bld) [Volum e fraction]Ordered By: Cachorro Gonzalez on 02-23-2025 Hematocrit (Bld) [Volume fraction] 39.4 % 37-47 [facility] Hemoglobin measurementOrdere d By: Cachorro Gonzalez on 02-23-2025 Hemoglobin (Bld) [Mass/Vol] 12.7 g/dL 12.0-15.0 [facility] MCV (mean corpuscular volume ) determinationOrdered By: Cachorro Gonzalez on 02-23-2025 MCV (RBC) [Entitic vol] 77.7 fL Low 81-99 [facility] Mean corpuscular hemoglobin (MCH) determinationOrdered By: Cachorro Gonzalez on 02-23-2025 MCH (RBC) [Entitic mass] 25.0 pg Low 27.0-32.0 [facility] Mean corpuscular hemoglobin concentration (MCHC) determinationOrdered By: Cachorro Gonzalez on 02-23-2025 MCHC (RBC) [Mass/Vol] 32.2 g/dL 32-36 [facility] Mean platelet volume determi nationOrdered By: Cachorro Gonzalez on 02-23-2025 Platelet mean volume (Bld) [Entitic vol] 10.1 fL 6.2-12.0 [facility] Platelet countOrdered By: Salvador Gonzalez on 02-23-2025 Platelets (Bld) [#/Vol] 201 10*3/uL 150-450 [facility] Potassium measurement (mass/ volume)Ordered By: Cachorro Gonzalez on 02-23-2025 Potassium (Unsp spec) [Mass/Vol] 4.2 mmol/L 3.3-5.1 [facility] RBC Auto (Bld) [#/Vol]Ordere d By: Cachorro Gonzalez on 02-23-2025 RBC (Bld) [#/Vol] 5.07 10*6/uL 4.2-5.4 [facility] Serum creatinine measurement (mass/volume)Ordered By: Cachorro Gonzalez on 02-23-2025 Creatinine [Mass/Vol] 0.51 mg/dL Low 0.70-1.20 [facility] Serum glucose measurement (m ass/volume)Ordered By: Cachorro Gonzalez on 02-23-2025 Glucose [Mass/Vol] 113 mg/dL High 70-99 [facility] Serum or plasma calcium arya urement (mass/volume)Ordered By: Cachorro Gonzalez on 02-23-2025 Calcium [Mass/Vol] 9.5 mg/dL 7.6-11.0 [facility] Serum or plasma urea nitroge n measurement (mass/volume)Ordered By: Cachorro Gonzalez on 02-23-2025 Urea nitrogen [Mass/Vol] 9 mg/dL 4-19 [facility] Sodium levelOrdered By: Cachorro Gonzalez on 02-23-2025 Sodium [Moles/Vol] 140 mmol/L 133-145 [facility] TSH DL <= 0.005 mIU/L QnOrde red By: Cachorro Gonzalez on 02-23-2025 TSH Qn 1.930 uIU/mL 0.300-4.20 0 [facility] Thyroid Stim Hormone (TSH)on 02-23-2025 TSH 1.930 uIU/mL Normal 0.300-4.20 0 [facility] Comment on above: Performed By: #### L 501.9520, L100.0500, L100.4500, L500.2500 ####[facility] [address] [place], [address] White blood cell (WBC) count Ordered By: Cachorro Gonzalez on 02-23-2025 WBC (Bld) [#/Vol] 4.7 10*3/uL 4.4-11.0 [facility] Colonoscopy Reporton 025 Colonoscopy Report [facility] Medical Records Department [address] [place] [address] Colonoscopy Report MR#: [id number] Acct: [id number] Name: JULIA PLASCENCIA Rep #: [id number] : 1945 79 From: Von Velez MD PCP: Dr. Cachorro Gonzalez MD Status:[facility] Patient Name: Julia Plascencia Procedure Date: 02/07/2025 [...] screening purposes. Procedure Code(s): --- Professional --- 77913, Colonoscopy, flexible; diagnostic, including collection of specimen(s) by brushing or washing, when performed (separate procedure) Diagnosis Code(s): --- Professional --- D50.9, Iron deficiency anemia, unspecified CPT copyright 2021 [employer]. All rights reserved. The codes documented in this report are preliminary and upon skin peeling machine operator review may be revised to meet current compliance requirements. Von Velez MD 02/07/2025 8:59:20 AM This report has been signed electronically. Number of Addenda: 0 Note Initiated On: 02/07/2025 8:32 AM 02/07/25 0859 Date Von Velez MD Cosign Signature: Date (if indicated) CC: Dr. Von Velez MD; Dr. Cachorro Gonzalez MD Date Dictated: 02/07/25831 Date Transcribed: Tester Electronic Scale: ALTAGRACIA Signed Normal [facility] EGD Reporton 02-07-2025 EGD Report [facility] Medical Records Department [address] [place] [address] EGD Report MR#: [id number] Acct: [id number] Name: JULIA PLASCENCIA Rep #: [id number] : 1945 79 From: Von Velez MD PCP: Dr. Cachorro Gonzalez MD Status:[facility] Patient Name: Julia Plascencia Procedure Date: 02/07/2025 [...] present medications. Procedure Code(s): --- Professional --- 21714, Esophagogastroduodenoscopy, flexible, transoral; diagnostic, including collection of specimen(s) by brushing or washing, when performed (separate procedure) Diagnosis Code(s): --- Professional --- D50.9, Iron deficiency anemia, unspecified CPT copyright 2021 [employer]. All rights reserved. The codes documented in this report are preliminary and upon skin peeling machine operator review may be revised to meet current compliance requirements. Von Velez MD 02/07/2025 8:56:06 AM This report has been signed electronically. Number of Addenda: 0 Note Initiated On: 02/07/2025 8:23 AM 02/07/2556 Date Von Velez MD Cosigner Signature: Date (if indicated) CC: Dr. Von Velez MD; Dr. Cachorro Gonzalez MD Date Dictated: 02/07/25822 Date Transcribed: Tester Electronic Scale: ALTAGRACIA Signed [facility] MR/POSTOP.Leanna 02-07-2025 MR/POSTOP.[facility] Medical Records Department [address] [place] [address] Anesthesia Postop Eval I 02/07/25 0904 MR#: [id number] Acct: [id number] Name: MARKUSDIONJULIAPROSPER SORIA Rep #: [id number] : 1945 79 From: Mingo Sanchez PCP: Dr. Cachorro Gonzalez MD Status:[facility] Y Race: C Location: EN [...] Sanchez Cosigner Signature: Date CC: Signed Normal [facility] MR/KKPRYKWJ1rs 02-07-2025 [facility] Medical Records Department [address] [place] [address] Anesthesia Postop Eval II 02/07/25 1011 MR#: [id number] Acct: [id number] Name: JULIA PLASCENCIA Rep #: [id number] : 1945 79 From: Jose Raul Theodore MD PCP: Dr. Cachorro Gonzalez MD Status:[facility] Y Race: C Location: EN [...] MD Cosigner Signature: Date CC: Signed Normal [facility] MR/PAT.SONYon 02-03-2025 MR/PAT.[facility] Medical Records Department [address] [place] [address] PAT - Anesthesia 02/03/25 1151 MR#: [id number] Acct: [id number] Name: JULIA PLASCENCIA Rep #: [id number] : 1945 79 From: Yuri Mistry MD PCP: Dr. Cachorro Gonzalez MD Status:PRE [facility] Y Race: C Location: EN Pre-Assessment Diagnosis/Proposed Procedure Planned Operative Procedure(s): COLONOSCOPY/EGD Anesthesia History Anesthesia History - display mechanic: Anesthesia History - display mechanic Hx Hospitalization No 02/03/25 09:14 Any Problems [...] take am of surgery PONV PONV - display mechanic: PONV - display mechanic Female Yes 02/03/25 09:14 HX of Motion [...] 01/09/25 13:52 Respiratory Assessment Respiratory Assessment - display mechanic: Respiratory Tract Infection Hx - display mechanic Hx Respiratory Tract Infection No 02/03/25 09:14 STOP Sleep Apnea STOP Sleep Apnea - display mechanic: STOP Sleep Apnea - display mechanic Hx Hypertension No: hypotension 02/03/25 09:14 Hx [...] Tobacco Use History Tobacco Use History - display mechanic: Tobacco Use History - display mechanic Tobacco Use Smoking Status Never smoker 02/03/25 09:14 Hx Tobacco Use No 02/03/25 09:14 Years Smoking Packs Smoked per Day Smoking Cessation Date was within the last 15 years Hx Smoking Cessation Date Hx Smoking Cessation Counseling Hematologic Medial History Hematologic Hx - display mechanic: Hematologic Medical Hx - coding consultant Hx of Blood Transfusion Yes 02/03/25 09:14 [...] confused, unrespo /Reproduction History /Reproductive History - display mechanic: /Reproductive Hx- display mechanic Hx Now No 02/03/25 09:14 Gestational Age (in weeks): EDC: Hx Hx Para Hx Section SAB No 02/03/25 09:14 [facility] Medical History (Updated 02/03/25 @ 09:14 by [...] aspirin 8 (more content not included)... Normal [facility] Surgery Visit Reporton 01-09 Surgery Visit Report [facility] [address] [place] [address]. [address] [place] [address] OFFICE VISIT Date of Service: 01/09/25 MR#: [id number] Acct: [id number] Name: JULIA PLASCENCIA YANG Rep #: [id number] : 1945 Provider: Dr. Von chun [...] Chest C (more content not included)... Normal [facility] Absolute lymphocyte countOrd ered By: Cachorro Gonzalez on 12-28-2024 Lymphocytes Auto (Unsp spec) [#/Vol] 1.06 10*3/uL 0.83-4.51 [facility] Absolute neutrophil countOrd ered By: Cachorro Gonzalez on 12-28-2024 Neutrophils (Bld) [#/Vol] 2.0 10*3/uL 2.0-7.7 [facility] Anion gap in Serum or Plasma Ordered By: Cachorro Gonzalez on 12-28-2024 Anion gap [Moles/Vol] 11 mmol/L 5-15 [facility] Automated lymphocyte count a s percentage of total leukocytesOrdered By: Cachorro Gonzalez on 12-28-2024 Lymphocytes/100 WBC Auto (Unsp spec) 29.9 % 19-41 [facility] BUN/creatinine ratioOrdered By: Cachorro Gonzalez on 12-28-2024 Urea nitrogen/Creatinine [Mass ratio] 13.1 mg/mg 10-20 [facility] Basophil percentageOrdered B y: Cachorro Gonzalez on 12-28-2024 Basophils/100 WBC (Bld) 0.6 % 0-1 [facility] Bilirubin, totalOrdered By: Cachorro Gonzalez on 12-28-2024 Bilirubin [Mass/Vol] 0.31 mg/dL 0.00-1.30 [facility] CBC W/Diff, Automatedon Absolute Lymph 1.06 X10 3/uL Normal 0.83-4.51 [facility] Comment on above: Performed By: #### L 506.0400, L501.9520, L502.0250, L501.55764, L100.0100, L500.4100, L500.4050 ####[facility] [address] [place], [address] Absolute Neut 2.0 X10 3/uL Normal 2.0-7.7 [facility] Comment on above: Performed By: #### L 506.0400, L501.9520, L502.0250, L501.46344, L100.0100, L500.4100, L500.4050 ####[facility] [address] [place], [address] Basophils/100 WBC (Bld) 0.6 % Normal 0-1 [facility] Comment on above: Performed By: #### L 506.0400, L501.9520, L502.0250, L501.51967, L100.0100, L500.4100, L500.4050 ####[facility] [address] [place], [address] Eosinophils/100 WBC (Bld) 4.0 % Normal 0-5 [facility] Comment on above: Performed By: #### L 506.0400, L501.9520, L502.0250, L501.94826, L100.0100, L500.4100, L500.4050 ####[facility] [address] [place], [address] Erythrocyte distribution width (RBC) [Ratio] 18.7 % High 11.6-14.6 [facility] Comment on above: Performed By: #### L 506.0400, L501.9520, L502.0250, L501.26261, L100.0100, L500.4100, L500.4050 ####[facility] [address] [place], [address] Hematocrit (Bld) [Volume fraction] 27.8 % Low 37-47 [facility] Comment on above: Performed By: #### L 506.0400, L501.9520, L502.0250, L501.28199, L100.0100, L500.4100, L500.4050 ####[facility] [address] [place], [address] Hemoglobin (Bld) [Mass/Vol] 8.2 g/dL Low 12.0-15.0 [facility] Comment on above: Performed By: #### L 506.0400, L501.9520, L502.0250, L501.30215, L100.0100, L500.4100, L500.4050 ####[facility] [address] [place], [address] IG% 0.000 Normal 0.0-0.9 [facility] Comment on above: Result Comment: IG% - Immature Granulocytes (promyelocytes, myelocytes and metamyelocytes) > 1% indicates that a LEFT SHIFT is Present. Performed By: #### L 506.0400, L501.9520, L502.0250, L501.36575, L100.0100, L500.4100, L500.4050 ####[facility] [address] [place], [address] Lymphocytes/100 WBC (Bld) 29.9 % Normal 19-41 [facility] Comment on above: Performed By: #### L 506.0400, L501.9520, L502.0250, L501.05546, L100.0100, L500.4100, L500.4050 ####[facility] [address] [place], [address] MCH (RBC) [Entitic mass] 20.2 pg Low 27.0-32.0 [facility] Comment on above: Performed By: #### L 506.0400, L501.9520, L502.0250, L501.51207, L100.0100, L500.4100, L500.4050 ####[facility] [address] [place], [address] MCHC (RBC) [Mass/Vol] 29.5 g/dL Low 32-36 [facility] Comment on above: Performed By: #### L 506.0400, L501.9520, L502.0250, L501.97918, L100.0100, L500.4100, L500.4050 ####[facility] [address] [place], [address] MCV (RBC) [Entitic vol] 68.6 fL Low 81-99 [facility] Comment on above: Performed By: #### L 506.0400, L501.9520, L502.0250, L501.33023, L100.0100, L500.4100, L500.4050 ####[facility] [address] [place], [address] Monocytes/100 WBC (Bld) 9.0 % Normal 0-10 [facility] Comment on above: Performed By: #### L 506.0400, L501.9520, L502.0250, L501.99432, L100.0100, L500.4100, L500.4050 ####[facility] [address] [place], [address] Neutrophils/100 WBC (Bld) 56.5 % Normal 47-70 [facility] Comment on above: Performed By: #### L 506.0400, L501.9520, L502.0250, L501.44912, L100.0100, L500.4100, L500.4050 ####[facility] [address] [place], [address] Nucleated RBC (Bld) [#/Vol] 0 10*3/uL Normal 0-5 [facility] Comment on above: Performed By: #### L 506.0400, L501.9520, L502.0250, L501.27816, L100.0100, L500.4100, L500.4050 ####[facility] [address] [place], [address] Platelet mean volume (Bld) [Entitic vol] 10.0 fL Normal 6.2-12.0 [facility] Comment on above: Performed By: #### L 506.0400, L501.9520, L502.0250, L501.28652, L100.0100, L500.4100, L500.4050 ####[facility] [address] [place], [address] Platelets (Bld) [#/Vol] 241 10*3/uL Normal 150-450 [facility] Comment on above: Performed By: #### L 506.0400, L501.9520, L502.0250, L501.10880, L100.0100, L500.4100, L500.4050 ####[facility] [address] [place], [address] RBC (Bld) [#/Vol] 4.05 10*6/uL Low 4.2-5.4 [facility] Comment on above: Performed By: #### L 506.0400, L501.9520, L502.0250, L501.93009, L100.0100, L500.4100, L500.4050 ####[facility] [address] [place], [address] RDW SD 46.2 fl High 35.1-43.9 [facility] Comment on above: Performed By: #### L 506.0400, L501.9520, L502.0250, L501.26084, L100.0100, L500.4100, L500.4050 ####[facility] [address] [place], [address] WBC (Bld) [#/Vol] 3.5 10*3/uL Low 4.4-11.0 [facility] Comment on above: Performed By: #### L 506.0400, L501.9520, L502.0250, L501.22450, L100.0100, L500.4100, L500.4050 ####[facility] [address] [place], [address] Calculated very low density lipoprotein (VLDL) cholesterol measurementOrdered By: Cachorro Gonzalez on 12-28-2024 Calculated very low density lipoprotein (VLDL) cholesterol measurement 20 mg/dL 5-40 [facility] Carbon dioxide, total [Moles /volume] in Central venous bloodOrdered By: Cachorro Gonzalez on 12-28-2024 CO2 [Moles/Vol] 23.5 mmol/L 21.0-32.0 [facility] Chloride assayOrdered By: Salvador Gonzalez on 12-28-2024 Chloride [Moles/Vol] 107 mmol/L 98-108 [facility] Comprehensive Metabolic Prof ilon 12-28-2024 Albumin [Mass/Vol] 4.2 g/dL Normal 3.4-4.8 [facility] Comment on above: Performed By: #### L 504.2610, L501.1400, L100.0100, L500.4050 #### [facility] [address] [place], [address] Albumin/Globulin [Mass ratio] 1.7 {ratio} Normal 0.9-2.4 [facility] Comment on above: Performed By: #### L 504.2610, L501.1400, L100.0100, L500.4050 #### [facility] [address] [place], [address] ALK PHOS 63 U/L Normal 35-104 [facility] Comment on above: Performed By: #### L 504.2610, L501.1400, L100.0100, L500.4050 #### [facility] [address] [place], [address] ALT [Catalytic activity/Vol] 16 U/L Normal <=34 [facility] Comment on above: Performed By: #### L 504.2610, L501.1400, L100.0100, L500.4050 #### [facility] [address] [place], [address] AST [Catalytic activity/Vol] 18 U/L Normal <=31 [facility] Comment on above: Performed By: #### L 504.2610, L501.1400, L100.0100, L500.4050 #### [facility] [address] [place], [address] Bilirubin [Mass/Vol] 0.31 mg/dL Normal 0.00-1.30 [facility] Comment on above: Performed By: #### L 504.2610, L501.1400, L100.0100, L500.4050 #### [facility] [address] [place], [address] BUN/CRE 13.1 RATIO Normal 10-20 [facility] Comment on above: Performed By: #### L 504.2610, L501.1400, L100.0100, L500.4050 #### [facility] [address] [place], [address] Calcium [Mass/Vol] 9.2 mg/dL Normal 7.6-11.0 [facility] Comment on above: Performed By: #### L 504.2610, L501.1400, L100.0100, L500.4050 #### [facility] [address] [place], [address] Chloride [Moles/Vol] 107 mmol/L Normal 98-108 [facility] Comment on above: Performed By: #### L 504.2610, L501.1400, L100.0100, L500.4050 #### [facility] [address] [place], [address] CO2 [Moles/Vol] 23.5 mmol/L Normal 21.0-32.0 [facility] Comment on above: Performed By: #### L 504.2610, L501.1400, L100.0100, L500.4050 #### [facility] [address] [place], [address] Creatinine [Mass/Vol] 0.57 mg/dL Low 0.70-1.20 [facility] Comment on above: Performed By: #### L 504.2610, L501.1400, L100.0100, L500.4050 #### [facility] [address] [place], [address] GAP 11 Normal 5-15 [facility] Comment on above: Performed By: #### L 504.2610, L501.1400, L100.0100, L500.4050 #### [facility] [address] [place], [address] GFR/1.73 sq M.predicted among non-blacks MDRD (S/P/Bld) [Vol rate/Area] 92 mL/min/{1.73_m2} Normal >60 [facility] Comment on above: Result Comment: mL/m in/1.73m2 CKD-EPI Creatinine Equation (2020) Performed By: #### L 504.2610, L501.1400, L100.0100, L500.4050 #### [facility] [address] [place], [address] Globulin (S) [Mass/Vol] 2.5 g/dL Normal 2.2-4.2 [facility] Comment on above: Performed By: #### L 504.2610, L501.1400, L100.0100, L500.4050 #### [facility] [address] [place], [address] Glucose [Mass/Vol] 103 mg/dL High 70-99 [facility] Comment on above: Performed By: #### L 504.2610, L501.1400, L100.0100, L500.4050 #### [facility] [address] [place], [address] Potassium [Moles/Vol] 3.8 mmol/L Normal 3.3-5.1 [facility] Comment on above: Performed By: #### L 504.2610, L501.1400, L100.0100, L500.4050 #### [facility] [address] [place], [address] Sodium [Moles/Vol] 141 mmol/L Normal 133-145 [facility] Comment on above: Performed By: #### L 504.2610, L501.1400, L100.0100, L500.4050 #### [facility] [address] [place], [address] T PROT 6.7 g/dL Normal 5.9-8.4 [facility] Comment on above: Performed By: #### L 504.2610, L501.1400, L100.0100, L500.4050 #### [facility] [address] [place], [address] Urea nitrogen [Mass/Vol] 7 mg/dL Normal 4-19 [facility] Comment on above: Performed By: #### L 504.2610, L501.1400, L100.0100, L500.4050 #### [facility] [address] [place], [address] Eosinophil percentageOrdered By: Cachorro Gonzalez on 12-28-2024 Eosinophils/100 WBC (Bld) 4.0 % 0-5 [facility] Erythrocyte distribution wid th ratioOrdered By: Cachorro Gonzalez on 12-28-2024 Erythrocyte distribution width (RBC) [Ratio] 18.7 % High 11.6-14.6 [facility] Erythrocyte distribution wid th standard deviationOrdered By: Cachorro Gonzalez on 12-28-2024 Erythrocyte distribution width (RBC) [Ratio] 46.2 fl High 35.1-43.9 [facility] Free T3on 12-28-2024 Free T3 [Mass/Vol] 2.6 pg/mL Normal 2.18-3.98 [facility] Comment on above: Performed By: #### L 504.2610, L501.1400, L100.0100, L500.4050 #### [facility] [address] [place], [address] Free J8Rjaupoq By: Cachorro kim on 12-28-2024 Free T3 [Mass/Vol] 2.6 pg/mL 2.18-3.98 [facility] Glomerular filtration rate ( GFR) estimation/1.73 sq m using serum, plasma, or whole bOrdered By: Cachorro Gonzalez on 12-28-2024 GFR/1.73 sq M.predicted among non-blacks MDRD (S/P/Bld) [Vol rate/Area] 92 mL/min/{1.73_m2} >60 [facility] Comment on above: mL/min/1.73m2 CKD-EP I Creatinine Equation (2020) Hematocrit Auto (Bld) [Volum e fraction]Ordered By: Cachorro Gonzalez on 12-28-2024 Hematocrit (Bld) [Volume fraction] 27.8 % Low 37-47 [facility] Hemoglobin measurementOrdere d By: Cachorro Gonzalez on 12-28-2024 Hemoglobin (Bld) [Mass/Vol] 8.2 g/dL Low 12.0-15.0 [facility] Immature granulocytes/100 WB C Auto (Bld)Ordered By: Cachorro Gonzalez on 12-28-2024 Immature granulocytes/100 WBC (Bld) 0.000 % 0.0-0.9 [facility] Comment on above: IG% - Immature Granu locytes (promyelocytes, myelocytes and metamyelocytes) > 1% indicates that a LEFT SHIFT is Present. LDL calc ser/plasOrdered By: Cachorro Gonzalez on 12-28-2024 Cholesterol in LDL [Mass/Vol] 167 mg/dL [facility] Comment on above: Exgciemhvf=541-734 m g/dL & Higher Ssal=203 mg/dL or greater Laboratory - Chemistry and C hemistry - challengeOrdered By: Cachorro Gonzalez on 12-28-2024 AST [Catalytic activity/Vol] 18 U/L <32 [facility] Lipid Profileon 12-28-2024 CHOL:HDL 3.59 Normal [facility] Comment on above: Performed By: #### L 504.2610, L501.1400, L100.0100, L500.4050 #### [facility] [address] [place], [address] Cholesterol [Mass/Vol] 259 mg/dL High <=[address] [facility] Comment on above: Result Comment: Chol esterol level, Desirable <200 mg/dL Borderline high cholesterol 200-239 mg/dL High cholesterol >=240 mg/dL Recommendations of the NCEP Adult Treatment Panel for the following risk-cutoff thresholds for the [place] population. Performed By: #### L 504.2610, L501.1400, L100.0100, L500.4050 #### [facility] [address] [place], [address] Cholesterol in HDL [Mass/Vol] 72 mg/dL Normal [facility] Comment on above: Result Comment: Cassie onal Cholesterol Education Program (NCEP) guidelines: <40 mg/dL: Low HDL-cholesterol (major risk factor for CHD) >= 60 mg/dL: High HDL-cholesterol (negative risk factor for CHD) HDL-cholesterol is affected by a number of factors, e.g. smoking, exercise, hormones, sex and age. Performed By: #### L 504.2610, L501.1400, L100.0100, L500.4050 #### [facility] [address] [place], [address] Cholesterol in LDL [Mass/Vol] 167 mg/dL Normal [facility] Comment on above: Result Comment: Bord mflrth=212-008 mg/dL Higher Duvj=261 mg/dL or greater Performed By: #### L 504.2610, L501.1400, L100.0100, L500.4050 #### [facility] [address] [place], [address] Cholesterol in VLDL [Mass/Vol] 20 mg/dL Normal 5-40 [facility] Comment on above: Performed By: #### L 504.2610, L501.1400, L100.0100, L500.4050 #### [facility] [address] [facility] [address] [place], [place], [id number] Triglyceride [Mass/Vol] 98 mg/dL Normal [facility] Comment on above: Result Comment: The drugs N-Acetylcysteine and Metamizole may falsely depress this assay. Normal range: <150 mg/dL Borderline High: 150-199 mg/dL High: 200-499 mg/dL Very High: >500 mg/dL Performed By: #### L 504.2610, L501.1400, L100.0100, L500.4050 #### [facility] [address] [facility] [place], [place], [id number] MCV (mean corpuscular volume ) determinationOrdered By: Cachorro Gonzalez on 12-28-2024 MCV (RBC) [Entitic vol] 68.6 fL Low 81-99 [facility] Mean corpuscular hemoglobin (MCH) determinationOrdered By: Cachorro Gonzalez on 12-28-2024 MCH (RBC) [Entitic mass] 20.2 pg Low 27.0-32.0 [facility] Mean corpuscular hemoglobin concentration (MCHC) determinationOrdered By: Cachorro Gonzalez on 12-28-2024 MCHC (RBC) [Mass/Vol] 29.5 g/dL Low 32-36 [facility] Mean platelet volume determi nationOrdered By: Cachorro Gonzalez on 12-28-2024 Platelet mean volume (Bld) [Entitic vol] 10.0 fL 6.2-12.0 [facility] Microalb:Creat Ratio,Random URon 12-28-2024 Creatinine [Mass/Vol] 32.20 mg/dL Normal 28.00- 217. 00 [facility] Comment on above: Performed By: #### L 506.0400, L501.9520, L502.0250, L501.97367, L100.0100, L500.4100, L500.4050 ####[facility] [address] [place], [place], [id number] MALB:CREAT UNABLE TO CALCULATE Normal [facility] Comment on above: Performed By: #### L 506.0400, L501.9520, L502.0250, L501.37477, L100.0100, L500.4100, L500.4050 ####[facility] [address] [place], [place], [id number] MICROALBUMIN,UR < 12.0 Normal NO RANGE EST. [facility] Comment on above: Performed By: #### L 506.0400, L501.9520, L502.0250, L501.35232, L100.0100, L500.4100, L500.4050 ####[facility] [id number] [place], [place], [id number] Microalbumin/creat ratio urO rdered By: Cachorro Gonzalez on 12-28-2024 Urine microalbumin/creatinin e ratio measurement UNABLE TO CALCULATE mg/g CRE [facility] Monocyte percentageOrdered B y: Cachorro Gonzalez on 12-28-2024 Monocytes/100 WBC (Bld) 9.0 % 0-10 [facility] Neutrophil percentageOrdered By: Cachorro Gonzalez on 12-28-2024 Neutrophils/100 WBC (Bld) 56.5 % 47-70 [facility] Nucleated red blood cell per centageOrdered By: Cachorro Gonzalez on 12-28-2024 Nucleated RBC/100 WBC (Bld) [Ratio] 0 % 0-5 [facility] Platelet countOrdered By: Salvador Gonzalez on 12-28-2024 Platelets (Bld) [#/Vol] 241 10*3/uL 150-450 [facility] Potassium measurement (mass/ volume)Ordered By: Cachorro Gonzalez on 12-28-2024 Potassium (Unsp spec) [Mass/Vol] 3.8 mmol/L 3.3-5.1 [facility] RBC Auto (Bld) [#/Vol]Ordere d By: Cachorro Gonzalez on 12-28-2024 RBC (Bld) [#/Vol] 4.05 10*6/uL Low 4.2-5.4 [facility] Random urine creatinine arya urement (mass/volume)Ordered By: Cachorro Gonzalez on 12-28-2024 Creatinine Unsp time (U) [Mass/Vol] 32.20 mg/dL 28.00-217. 00 [facility] Screening total cholesterol/ high density lipoprotein (HDL) cholesterol ratioOrdered By: Cachorro Gonzalez on 12-28-2024 Cholesterol.total/Chol esterol in HDL [Mass ratio] 3.59 {ratio} [facility] Serum creatinine measurement (mass/volume)Ordered By: Cachorro Gonzalez on 12-28-2024 Creatinine [Mass/Vol] 0.57 mg/dL Low 0.70-1.20 [facility] Serum globulin measurementOr dered By: Cachorro Gonzalez on 12-28-2024 Globulin (S) [Mass/Vol] 2.5 g/dL 2.2-4.2 [facility] Serum glucose measurement (m ass/volume)Ordered By: Cachorro Gonzalez on 12-28-2024 Glucose [Mass/Vol] 103 mg/dL High 70-99 [facility] Serum or plasma alanine morejon otransferase (ALT) measurementOrdered By: Cachorro Gonzalez on 12-28-2024 ALT [Catalytic activity/Vol] 16 U/L <35 [facility] Serum or plasma albumin arya urement (mass/volume)Ordered By: Cachorro Gonzalez on 12-28-2024 Albumin [Mass/Vol] 4.2 g/dL 3.4-4.8 [facility] Serum or plasma albumin/glob ulin mass ratioOrdered By: Cachorro Gonzalez on 12-28-2024 Albumin/Globulin [Mass ratio] 1.7 {ratio} 0.9-2.4 [facility] Serum or plasma alkaline altagracia sphatase measurementOrdered By: Cachorro Gonzalez on 12-28-2024 ALP [Catalytic activity/Vol] 63 U/L 35-104 [facility] Serum or plasma calcium arya urement (mass/volume)Ordered By: Cachorro Gonzalez on 12-28-2024 Calcium [Mass/Vol] 9.2 mg/dL 7.6-11.0 [facility] Serum or plasma cholesterol in HDL measurement (mass/volume)Ordered By: Cachorro Gonzalez on 12-28-2024 Cholesterol in HDL [Mass/Vol] 72 mg/dL >40 [facility] Comment on above: National Cholesterol Education Program (NCEP) guidelines:<40 mg/dL: Low HDL-cholesterol (major risk factor for CHD)>= 60 mg/dL: High HDL-cholesterol (negative risk factor for CHD)HDL-cholesterol is affected by a number of factors, e.g. smoking, exercise, hormones, sex and age. Serum or plasma cholesterol measurement (mass/volume)Ordered By: Cachorro Gonzalez on 12-28-2024 Cholesterol [Mass/Vol] 259 mg/dL High <[address] [facility] Comment on above: Cholesterol level, D esirable <200 mg/dLBorderline high cholesterol 200-239 mg/dLHigh cholesterol >=240 mg/dLRecommendations of the NCEP Adult Treatment Panel for the following risk-cutoff thresholds for the [place] population. Serum or plasma urea nitroge n measurement (mass/volume)Ordered By: Cachorro Gonzalez on 12-28-2024 Urea nitrogen [Mass/Vol] 7 mg/dL 4-19 [facility] Sodium levelOrdered By: Cachorro Gonzalez on 12-28-2024 Sodium [Moles/Vol] 141 mmol/L 133-145 [facility] T4 Free Directon 12-28-2024 T4 FREE DIRECT 1.30 ng/dL Normal 0.76-1.46 [facility] Comment on above: Performed By: #### L 504.2610, L501.1400, L100.0100, L500.4050 #### [facility] [address] [place], [place], [id number] T4 freeOrdered By: Cachorro kim on 12-28-2024 Free T4 [Mass/Vol] 1.30 ng/dL 0.76-1.46 [facility] TSH DL <= 0.005 mIU/L QnOrde red By: Cachorro Gonzalez on 12-28-2024 TSH Qn 1.220 uIU/mL 0.300-4.20 0 [facility] Thyroid Stim Hormone (TSH)on 12-28-2024 TSH 1.220 uIU/mL Normal 0.300-4.20 0 [facility] Comment on above: Performed By: #### L 504.2610, L501.1400, L100.0100, L500.4050 #### [facility] [address] [place], [address] Total proteinOrdered By: Erinn Gonzalez on 12-28-2024 Protein [Mass/Vol] 6.7 g/dL 5.9-8.4 [facility] Triglycerides measurementOrd ered By: Cachorro Gonzalez on 12-28-2024 Triglyceride [Mass/Vol] 98 mg/dL <199 [facility] Comment on above: The drugs N-Acetylcy steine and Metamizole may falsely depress this assay. Normal range: <150 mg/dLBorderline High: 150-199 mg/dLHigh: 200-499 mg/dLVery High: >500 mg/dL Urine albumin measurement wi th detection limit of 20 mg/L or less (mass/volume)Ordered By: Cachorro Gonzalez on 12-28-2024 Albumin DL <= 20 mg/L (U) [Mass/Vol] < 12.0 mg/L NO RANGE EST. [facility] White blood cell (WBC) count Ordered By: Cachorro Gonzalez on 12-28-2024 WBC (Bld) [#/Vol] 3.5 10*3/uL Low 4.4-11.0 [facility] Urine Cultureon 09-08-2024 URC Klebsiella pneumonia e sp pneum [place] Count 80,000-100,000 Klebsiella pneumoniae sp pneum: REACTION [...] TMP SMX Islt SHAY <=20 S Normal [facility] Comment on above: Performed By: #### L 504.2610, L501.1400, L100.0100, L500.4050 #### [facility] [address] [place], [address] Urine cultureOrdered By: Brittni Calderon on 09-06-2024 Bacteria identified Cx Nom (U) Klebsiella pneumoniae sp pneum Abnormal [facility] Absolute lymphocyte countOrd ered By: Cachorro Gonzalez on 12-28-2023 Lymphocytes Auto (Unsp spec) [#/Vol] 1.15 10*3/uL 0.83-4.51 [facility] Automated lymphocyte count a s percentage of total leukocytesOrdered By: Cachorro Gonzalez on 12-28-2023 Lymphocytes/100 WBC Auto (Unsp spec) 27.7 % 19-41 [facility] Basophil percentageOrdered B y: Cachorro Gonzalez on 12-28-2023 Basophils/100 WBC (Bld) 0.7 % 0-1 [facility] Bilirubin [Mass/Vol] 0.40 mg/dL 0.20-1.00 [facility] Comment on above: For patients on eltr ombopag therapy, use of Dimension [place] TBIL is not recommended. Chloride [Moles/Vol] 107 mmol/L 98-107 [facility] Cholesterol [Mass/Vol] 319 mg/dL <[address] [facility] Comment on above: <200 mg/dL Desirable 200-240 mg/dL Borderline >240 mg/dL High Risk Eosinophils/100 WBC (Bld) 7.0 % 0-5 [facility] Glucose [Mass/Vol] 143 mg/dL 74-106 [facility] Comment on above: Fasting Glucose resu lt greater than or equal to 126 mg/dL suggests DIABETES MELLITUS per A.D.A. criteria. Hemoglobin (Bld) [Mass/Vol] 10.1 g/dL 12.0-15.0 [facility] Monocytes/100 WBC (Bld) 8.7 % 0-10 [facility] Neutrophils (Bld) [#/Vol] 2.3 10*3/uL 2.0-7.7 [facility] Neutrophils/100 WBC (Bld) 55.7 % 47-70 [facility] Potassium [Moles/Vol] 3.8 mmol/L 3.5-5.1 [facility] Protein [Mass/Vol] 7.2 g/dL 6.4-8.2 [facility] Sodium [Moles/Vol] 140 mmol/L 136-145 [facility] Triglyceride [Mass/Vol] 116 mg/dL <199 [facility] Comment on above: The drugs N-Acetylcy steine and Metamizole may falsely depress this assay.Serum Triglycerides Reference Interval Normal <150 mg/dL Borderline high 150 - 199 mg/dL High 200 - 499 mg/dL Very High > or = 500 mg/dL WBC (Bld) [#/Vol] 4.2 10*3/uL 4.4-11.0 [facility] Determination of erythrocyte mean corpuscular volume (MCV)Ordered By: Cachorro Gonzalez on 12-28-2023 MCV (RBC) [Entitic vol] 72.9 fL 81-99 [facility] Erythrocyte distribution wid th ratioOrdered By: Cachorro Gonzalez on 12-28-2023 Erythrocyte distribution width (RBC) [Ratio] 19.0 % 11.6-14.6 [facility] Erythrocyte distribution wid th standard deviationOrdered By: Cachorro Gonzalez on 12-28-2023 Erythrocyte distribution width (RBC) [Entitic vol] 49.3 fL 35.1-43.9 [facility] Hematocrit Auto (Bld) [Volum e fraction]Ordered By: Cachorro Gonzalez on 12-28-2023 Hematocrit (Bld) [Volume fraction] 34.1 % 37-47 [facility] Immature granulocytes/100 WB C Auto (Bld)Ordered By: Cachorro Gonzalez on 12-28-2023 Immature granulocytes/100 WBC (Bld) 0.200 % 0.0-0.9 [facility] Comment on above: IG% - Immature Granu locytes (promyelocytes, myelocytes and metamyelocytes) > 1% indicates that a LEFT SHIFT is Present. Laboratory - Chemistry and C hemistry - challengeOrdered By: Cachorro Gonzalez on 12-28-2023 Albumin/Globulin [Mass ratio] 1.2 {ratio} 0.9-2.4 [facility] ALP [Catalytic activity/Vol] 57 U/L 45-117 [facility] ALT [Catalytic activity/Vol] 20 U/L 13-56 [facility] Cholesterol in HDL [Mass/Vol] 84 mg/dL >40 [facility] Comment on above: The drugs N-Acetylcy steine and Metamizole may falsely depress this assay. Reference Range HDL <40 mg/dL Low HDL Cholesterol HDL >or= 60 mg/dL High HDL Cholesterol Cholesterol in LDL [Mass/Vol] 212 mg/dL 0-130 [facility] CO2 [Moles/Vol] 27.0 mmol/L 21.0-32.0 [facility] Globulin (S) [Mass/Vol] 3.3 g/dL 2.2-4.2 [facility] Urea nitrogen/Creatinine [Mass ratio] 11.5 mg/mg 10-20 [facility] - Hematology and Cell countsOrdered By: Cachorro Gonzalez on 12-28-2023 MCH (RBC) [Entitic mass] 21.6 pg 27.0-32.0 [facility] MCHC (RBC) [Mass/Vol] 29.6 g/dL 32-36 [facility] Nucleated RBC/100 WBC (Bld) [Ratio] 0 % 0-5 [facility] Platelet mean volume (Bld) [Entitic vol] 10.1 fL 6.2-12.0 [facility] Platelets (Bld) [#/Vol] 264 10*3/uL 150-450 [facility] No Panel InformationOrdered By: Cachorro Gonzalez on 12-28-2023 Estimated GFR (MDRD) Amer 122 mL/min >60 [facility] Comment on above: GFR Calc Estimated GFR (MDRD) Non-Af Amer 101 mL/min >60 [facility] Comment on above: Non- GFR Calc Free Triiodothyronine (T3) pg/dL 2.6 pg/mL 2.18-3.98 [facility] VLDL Cholesterol 23 mg/dL 5-40 [facility] RBC Auto (Bld) [#/Vol]Ordere d By: Cachorro Gonzalez on 12-28-2023 RBC (Bld) [#/Vol] 4.68 10*6/uL 4.2-5.4 [facility] Serum or plasma calcium arya urement (mass/volume)Ordered By: Cachorro Gonzalez on 12-28-2023 Calcium [Mass/Vol] 9.1 mg/dL 8.5-10.1 [facility] Serum or plasma creatinine m easurement (mass/volume)Ordered By: Cachorro Gonzalez on 12-28-2023 Creatinine [Mass/Vol] 0.61 mg/dL 0.55-1.02 [facility] Comment on above: The validity of the calculated GFR & GFRAA in patients over 70 years has not been determined. Clinical correlation is essential. Serum or plasma thyroid stim ulating hormone (TSH) measurement (units/volume)Ordered By: Cachorro Gonzalez on 12-28-2023 TSH Qn 2.33 uIU/mL 0.358-3.74 [facility] Serum or plasma urea nitroge n measurement (mass/volume)Ordered By: Cachorro Gonzalez on 12-28-2023 Urea nitrogen [Mass/Vol] 7 mg/dL 7-18 [facility] Thin prep Papanicolaou smear with manual screeningOrdered By: Cachorro Gonzalez on 12-28-2023 Thin prep Papanicolaou smear with manual screening 3.9 g/dL 3.2-5.0 [facility] Thin prep Papanicolaou smear with manual screening 16 U/L 15-37 [facility] Thin prep Papanicolaou smear with manual screening 6 5-15 [facility] Thin prep Papanicolaou smear with manual screening 1.20 ng/dL 0.76-1.46 [facility] Basophil percentageOrdered B y: Cachorro Gonzalez on 06-26-2023 Chloride [Moles/Vol] 105 mmol/L 98-107 [facility] Cholesterol [Mass/Vol] 211 mg/dL <[address] [facility] Comment on above: <200 mg/dL Desirable 200-240 mg/dL Borderline >240 mg/dL High Risk Glucose [Mass/Vol] 144 mg/dL 74-106 [facility] Comment on above: Fasting Glucose resu lt greater than or equal to 126 mg/dL suggests DIABETES MELLITUS per A.D.A. criteria. Potassium [Moles/Vol] 3.9 mmol/L 3.5-5.1 [facility] Sodium [Moles/Vol] 138 mmol/L 136-145 [facility] Triglyceride [Mass/Vol] 86 mg/dL <199 [facility] Comment on above: The drugs N-Acetylcy steine and Metamizole may falsely depress this assay.Serum Triglycerides Reference Interval Normal <150 mg/dL Borderline high 150 - 199 mg/dL High 200 - 499 mg/dL Very High > or = 500 mg/dL Laboratory - Chemistry and C hemistry - challengeOrdered By: Cachorro Gonzalez on 06-26-2023 CO2 [Moles/Vol] 27.0 mmol/L 21.0-32.0 [facility] Free T4 [Mass/Vol] 1.17 ng/dL 0.76-1.46 [facility] Urea nitrogen/Creatinine [Mass ratio] 19.1 mg/mg 10-20 [facility] No Panel InformationOrdered By: Cachorro Gonzalez on 06-26-2023 Estimated GFR (MDRD) Amer 107 mL/min >60 [facility] Comment on above: GFR Calc Estimated GFR (MDRD) Non-Af Amer 89 mL/min >60 [facility] Comment on above: Non- GFR Calc Free Triiodothyronine (T3) pg/dL 2.5 pg/mL 2.18-3.98 [facility] Thyroid Stimulating Hormone (TSH) 1.74 uIU/mL 0.358-3.74 [facility] Serum or plasma calcium arya urement (mass/volume)Ordered By: Cachorro Gonzalez on 06-26-2023 Calcium [Mass/Vol] 9.2 mg/dL 8.5-10.1 [facility] Serum or plasma cholesterol in HDL measurement (mass/volume)Ordered By: Cachorro Gonzalez on 06-26-2023 Cholesterol in HDL [Mass/Vol] 72 mg/dL >40 [facility] Comment on above: The drugs N-Acetylcy steine and Metamizole may falsely depress this assay. Reference Range HDL <40 mg/dL Low HDL Cholesterol HDL >or= 60 mg/dL High HDL Cholesterol Serum or plasma cholesterol in VLDL measurement (mass/volume)Ordered By: Cachorro Gonzalez on 06-26-2023 Cholesterol in VLDL [Mass/Vol] 17 mg/dL 5-40 [facility] Serum or plasma creatinine m easurement (mass/volume)Ordered By: Cachorro Gonzalez on 06-26-2023 Creatinine [Mass/Vol] 0.68 mg/dL 0.55-1.02 [facility] Comment on above: The validity of the calculated GFR & GFRAA in patients over 70 years has not been determined. Clinical correlation is essential. Serum or plasma low density lipoprotein (LDL) cholesterol measurement (mass/volume)Ordered By: Cachorro Gonzalez on 06-26-2023 Cholesterol in LDL [Mass/Vol] 122 mg/dL 0-130 [facility] Serum or plasma urea nitroge n measurement (mass/volume)Ordered By: Cachorro Gonzalez on 06-26-2023 Urea nitrogen [Mass/Vol] 13 mg/dL 7-18 [facility] Thin prep Papanicolaou smear with manual screeningOrdered By: Cachorro Gonzalez on 06-26-2023 Thin prep Papanicolaou smear with manual screening 6 5-15 [facility] Basophil percentageon 2021 Chloride [Moles/Vol] 106 mmol/L 98-107 [facility] Work Phone: Cholesterol [Mass/Vol] 219 mg/dL <[address] [facility] Work Phone: Comment on above: <200 mg/dL Desirable 200-240 mg/dL Borderline >240 mg/dL High Risk Glucose [Mass/Vol] 116 mg/dL 74-106 [facility] Work Phone: Comment on above: Fasting Glucose resu lt from 100 to 125 mg/dL suggests IMPAIRED HOMEOSTASIS per A.D.A. criteria. Potassium [Moles/Vol] 3.9 mmol/L 3.5-5.1 [facility] Work Phone: Sodium [Moles/Vol] 139 mmol/L 136-145 [facility] Work Phone: Triglyceride [Mass/Vol] 98 mg/dL <199 [facility] Work Phone: Comment on above: The drugs N-Acetylcy steine and Metamizole may falsely depress this assay.Serum Triglycerides Reference Interval Normal <150 mg/dL Borderline high 150 - 199 mg/dL High 200 - 499 mg/dL Very High > or = 500 mg/dL Laboratory - Chemistry and C hemistry - challengeon 06-25-2022 CO2 [Moles/Vol] 28.0 mmol/L 21.0-32.0 [facility] Work Phone: Free T4 [Mass/Vol] 1.04 ng/dL 0.76-1.46 [facility] Work Phone: Urea nitrogen/Creatinine [Mass ratio] 18.8 mg/mg 10-20 [facility] Work Phone: No Panel Informationon 06-25 Estimated GFR (MDRD) Amer 116 mL/min >60 [facility] Work Phone: Comment on above: GFR Calc Estimated GFR (MDRD) Non-Af Amer 96 mL/min >60 [facility] Work Phone: Comment on above: Non- GFR Calc Free Triiodothyronine (T3) pg/dL 2.5 pg/mL 2.18-3.98 [facility] Work Phone: Thyroid Stimulating Hormone (TSH) 1.75 uIU/mL 0.358-3.74 [facility] Work Phone: Urine Microalbumin/Creatinin e Ratio 26.3 mg/g CRE <30 [facility] Work Phone: Serum or plasma calcium arya urement (mass/volume)on 06-25-2022 Calcium [Mass/Vol] 8.8 mg/dL 8.5-10.1 [facility] Work Phone: Serum or plasma cholesterol in HDL measurement (mass/volume)on 06-25-2022 Cholesterol in HDL [Mass/Vol] 78 mg/dL >40 [facility] Work Phone: Comment on above: The drugs N-Acetylcy steine and Metamizole may falsely depress this assay. Reference Range HDL <40 mg/dL Low HDL Cholesterol HDL >or= 60 mg/dL High HDL Cholesterol Serum or plasma cholesterol in VLDL measurement (mass/volume)on 06-25-2022 Cholesterol in VLDL [Mass/Vol] 20 mg/dL 5-40 [facility] Work Phone: Serum or plasma creatinine m easurement (mass/volume)on 06-25-2022 Creatinine [Mass/Vol] 0.64 mg/dL 0.55-1.02 [facility] Work Phone: Comment on above: The validity of the calculated GFR & GFRAA in patients over 70 years has not been determined. Clinical correlation is essential. Serum or plasma low density lipoprotein (LDL) cholesterol measurement (mass/volume)on 06-25-2022 Cholesterol in LDL [Mass/Vol] 121 mg/dL 0-130 [facility] Work Phone: Serum or plasma urea nitroge n measurement (mass/volume)on 06-25-2022 Urea nitrogen [Mass/Vol] 12 mg/dL 7-18 [facility] Work Phone: Thin prep Papanicolaou smear with manual screeningon 06-25-2022 Thin prep Papanicolaou smear with manual screening 5 5-15 [facility] Work Phone: Thin prep Papanicolaou smear with manual screening 8.5 mg/L NO RANGE EST. [facility] Work Phone: Urine creatinine measurement (mass/volume)on 06-25-2022 Creatinine (U) [Mass/Vol] 32.40 mg/dL NO RANGE EST. [facility] Work Phone: Basophil percentageon 2021 Basophil percentage >100 SEEN /hpf [facility] Work Phone: Chloride [Moles/Vol] 107 mmol/L 98-107 [facility] Work Phone: Cholesterol [Mass/Vol] 210 mg/dL <[address] [facility] Work Phone: Comment on above: <200 mg/dL Desirable 200-240 mg/dL Borderline >240 mg/dL High Risk Glucose [Mass/Vol] 151 mg/dL 74-106 [facility] Work Phone: Comment on above: Fasting Glucose resu lt greater than or equal to 126 mg/dL suggests DIABETES MELLITUS per A.D.A. criteria. Potassium [Moles/Vol] 4.0 mmol/L 3.5-5.1 [facility] Work Phone: Sodium [Moles/Vol] 140 mmol/L 136-145 [facility] Work Phone: Triglyceride [Mass/Vol] 134 mg/dL [facility] Work Phone: Comment on above: The drugs N-Acetylcy steine and Metamizole may falsely depress this assay.Serum Triglycerides Reference Interval Normal <150 mg/dL Borderline high 150 - 199 mg/dL High 200 - 499 mg/dL Very High > or = 500 mg/dL Bilirubin Test strip Ql (U)o n 12-23-2021 Bilirubin Ql (U) Negative Negative [facility] Work Phone: Ketones Test strip Ql (U)on 12-23-2021 Ketones Ql (U) Negative Negative [facility] Work Phone: Laboratory - Chemistry and C hemistry - challengeon 12-23-2021 CO2 [Moles/Vol] 27.0 mmol/L 21.0-32.0 [facility] Work Phone: Free T4 [Mass/Vol] 1.10 ng/dL 0.76-1.46 [facility] Work Phone: Urea nitrogen/Creatinine [Mass ratio] 14.8 mg/mg 10-20 [facility] Work Phone: Mucus LM Ql (Urine sed)on Mucus Ql (Urine sed) 0 SEEN /hpf [facility] Work Phone: Nitrite Test strip Ql (U)on 12-23-2021 Nitrite Ql (U) Positive Negative [facility] Work Phone: No Panel Informationon 12-23 Estimated GFR (MDRD) Amer 122 mL/min >60 [facility] Work Phone: Comment on above: GFR Calc Estimated GFR (MDRD) Non-Af Amer 101 mL/min >60 [facility] Work Phone: Comment on above: Non- GFR Calc Free Triiodothyronine (T3) pg/dL 2.5 pg/mL 2.18-3.98 [facility] Work Phone: Thyroid Stimulating Hormone (TSH) 1.21 uIU/mL 0.358-3.74 [facility] Work Phone: Protein Test strip Ql (U)on 12-23-2021 Protein Ql (U) 15 mg/dl Negative [facility] Work Phone: Serum or plasma calcium arya urement (mass/volume)on 12-23-2021 Calcium [Mass/Vol] 8.7 mg/dL 8.5-10.1 [facility] Work Phone: Serum or plasma cholesterol in HDL measurement (mass/volume)on 12-23-2021 Cholesterol in HDL [Mass/Vol] 75 mg/dL [facility] Work Phone: Comment on above: The drugs N-Acetylcy steine and Metamizole may falsely depress this assay. Reference Range HDL <40 mg/dL Low HDL Cholesterol HDL >or= 60 mg/dL High HDL Cholesterol Serum or plasma cholesterol in VLDL measurement (mass/volume)on 12-23-2021 Cholesterol in VLDL [Mass/Vol] 27 mg/dL 5-40 [facility] Work Phone: Serum or plasma creatinine m easurement (mass/volume)on 12-23-2021 Creatinine [Mass/Vol] 0.61 mg/dL 0.55-1.02 [facility] Work Phone: Comment on above: The validity of the calculated GFR & GFRAA in patients over 70 years has not been determined. Clinical correlation is essential. Serum or plasma low density lipoprotein (LDL) cholesterol measurement (mass/volume)on 12-23-2021 Cholesterol in LDL [Mass/Vol] 108 mg/dL 0-130 [facility] Work Phone: Serum or plasma urea nitroge n measurement (mass/volume)on 12-23-2021 Urea nitrogen [Mass/Vol] 9 mg/dL 7-18 [facility] Work Phone: Squamous epithelial cells de tection in urine sediment by light microscopyon 12-23-2021 Epithelial cells.squamous LM Ql (Urine sed) 5-10 SEEN /hpf [facility] Work Phone: Thin prep Papanicolaou smear with manual screeningon 12-23-2021 Thin prep Papanicolaou smear with manual screening 6 5-15 [facility] Work Phone: Urine blood detectionon RBC Ql (U) 25 /ul Negative [facility] Work Phone: RBC Ql (U) 0 SEEN /hpf [facility] Work Phone: Urine clarityon 12-23-2021 Clarity (U) Sl. Cloudy Clear [facility] Work Phone: Urine color determinationon 12-23-2021 Color (U) Yellow Yellow [facility] Work Phone: Urine glucose detectionon Glucose Ql (U) Normal mg/dl Normal [facility] Work Phone: Urine leukocyte esterase det ection by dipstickon 12-23-2021 Leukocyte esterase Test strip Ql (U) 500 /ul Negative [facility] Work Phone: Urine pHon 12-23-2021 pH (U) 6.0 [pH] [facility] Work Phone: Urine sediment bacteria coun t by microscopy (number/high power field)on 12-23-2021 Bacteria LM.HPF (Urine sed) [#/Area] 2 /[HPF] None Seen [facility] Work Phone: Urine specific gravity measu rementon 12-23-2021 Specific gravity (U) [Rel density] 1.015 [facility] Work Phone: Urobilinogen Auto test strip Ql (U)on 12-23-2021 Urobilinogen Ql (U) Normal mg/dl Normal [facility] Work Phone: Vital Signs Date Time Vital Sign Value Performing Clinician Faci lity 06-28-2025 12:04-0500 Body temperature 97.4 [degF] Dr. Cachorro Gonzalez MD Work Phone: [facility] 06-28-2025 12:04-0500 Diastolic blood pressure 42 mm[Hg] Dr. Cachorro Gonzalez MD Work Phone: [facility] 06-28-2025 12:04-0500 Heart rate 92 /min Dr. Cachorro Gonzalez MD Work Phone: [facility] 06-28-2025 12:04-0500 Respiratory rate 16 /min Dr. Cachorro Gonzalez MD Work Phone: 8(932)701-783423 [place] [address] 06-28-2025 12:04-0500 SaO2% (BldA) [Mass fraction] 94 % Dr. Cachorro Gonzalez MD Work Phone: [facility] 06-28-2025 12:04-0500 Systolic blood pressure 99 mm[Hg] Dr. Cachorro Gonzalez MD Work Phone: 4(742)337-386330 [place] [address] 06-28-2025 08:18-0500 Body height 165.[address] Cachorro Gonzaelz MD Work Phone: 1(584)077-981230 [place] [address] 06-28-2025 08:18-0500 Body mass index (BMI) [Ratio] 26.5 kg/m2 Dr. Cachorro Gonzalez MD Work Phone: 7(781)846-335923 [place] [address] 06-28-2025 08:18-0500 Body temperature 97.1 [degF] Dr. Cachorro Gonzalez MD Work Phone: 7(619)129-737030 [place] [address] 06-28-2025 08:18-0500 Body weight 72.[address] Cachorro Gonzalez MD Work Phone: 0(270)989-999830 [place] [address] 06-28-2025 08:18-0500 Diastolic blood pressure 69 mm[Hg] Dr. Cachorro Gonzalez MD Work Phone: [facility] 06-28-2025 08:18-0500 Heart rate 77 /min Dr. Cachorro Gonzalez MD Work Phone: 2(480)850-285630 [place] [address] 06-28-2025 08:18-0500 Respiratory rate 18 /min Dr. Cachorro Gonzalez MD Work Phone: 1(077)644-647023 [place] [address] 06-28-2025 08:18-0500 SaO2% (BldA) [Mass fraction] 98 % Dr. Cachorro Gonzalez MD Work Phone: 5(968)886-229830 [place] [address] 06-28-2025 08:18-0500 Systolic blood pressure 114 mm[Hg] Dr. Cachorro Gonzalez MD Work Phone: 1(356)595-925230 [place] [address] 06-12-2025 10:18-0400 Body height 165.[address] Cachorro Gonzalez MD Work Phone: 6(843)767-930730 [place] [address] 06-12-2025 10:18-0400 Body mass index (BMI) [Ratio] 27.3 kg/m2 Dr. Cachorro Gonzalez MD Work Phone: 3(061)948-326230 [place] [address] 06-12-2025 10:18-0400 Body temperature 97.6 [degF] Dr. Cachorro Gonzalez MD Work Phone: 3(578)847-443830 [place] [address] 06-12-2025 10:18-0400 Body weight 74.[address] Cachorro Gonzalez MD Work Phone: 4(291)331-522230 [place] [address] 06-12-2025 10:18-0400 Diastolic blood pressure 76 mm[Hg] Dr. Cachorro Gonzalez MD Work Phone: 8(579)671-628530 [place] [address] 06-12-2025 10:18-0400 Heart rate 82 /min Dr. Cachorro Gonzalez MD Work Phone: 6(849)983-759330 [place] [address] 06-12-2025 10:18-0400 Respiratory rate 18 /min Dr. Cachorro Gonzalez MD Work Phone: 7(879)358-477330 [place] [address] 06-12-2025 10:18-0400 SaO2% (BldA) [Mass fraction] 98 % Dr. Cachorro Gonzalez MD Work Phone: 3(261)616-009530 [place] [address] 06-12-2025 10:18-0400 Systolic blood pressure 130 mm[Hg] Dr. Cachorro Gonzalez MD Work Phone: 8(218)844-482530 [place] [address] 06-09-2025 11:18-0400 Body temperature 97.3 [degF] Dr. Cachorro Gonzalez MD Work Phone: 9(985)624-485330 [place] [address] 06-09-2025 11:18-0400 Diastolic blood pressure 68 mm[Hg] Dr. Cachorro Gonzalez MD Work Phone: 1(809)037-001230 [place] [address] 06-09-2025 11:18-0400 Heart rate 87 /min Dr. Cachorro Gonzalez MD Work Phone: 5(812)054-010530 [place] [address] 06-09-2025 11:18-0400 Respiratory rate 16 /min Dr. Cachorro Gonzalez MD Work Phone: 9(896)551-791630 [place] [address] 06-09-2025 11:18-0400 SaO2% (BldA) [Mass fraction] 97 % Dr. Cachorro Gonzalez MD Work Phone: 1(732)760-638530 [place] [address] 06-09-2025 11:18-0400 Systolic blood pressure 101 mm[Hg] Dr. Cachorro Gonzalez MD Work Phone: 9(163)926-818430 [place] [address] 06-07-2025 08:13-0400 Body mass index (BMI) [Ratio] 26.6 kg/m2 Dr. Cachorro Gonzalez MD Work Phone: 5(406)840-473130 [place] [address] 06-07-2025 08:13-0400 Body temperature 98.5 [degF] Dr. Cachorro Gonzalez MD Work Phone: 6(394)959-304630 [place] [address] 06-07-2025 08:13-0400 Body weight 72.[address] Cachorro Gonzalez MD Work Phone: 1(353)930-981430 [place] [address] 06-07-2025 08:13-0400 Diastolic blood pressure 65 mm[Hg] Dr. Cachorro Gonzalez MD Work Phone: 3(472)167-669730 [place] [address] 06-07-2025 08:13-0400 Heart rate 71 /min Dr. Cachorro Gonzalez MD Work Phone: 0(558)150-924230 [place] [address] 06-07-2025 08:13-0400 Respiratory rate 16 /min Dr. Cachorro Gonzalez MD Work Phone: 1(654)434-855930 [place] [address] 06-07-2025 08:13-0400 SaO2% (BldA) [Mass fraction] 99 % Dr. Cachorro Gonzalez MD Work Phone: 5(767)867-625730 [place] [address] 06-07-2025 08:13-0400 Systolic blood pressure 103 mm[Hg] Dr. Cachorro Gonzalez MD Work Phone: 4(583)817-747430 [place] [address] 06-06-2025 14:30-0400 Body temperature 97.6 [degF] Dr. Cachorro Gonzalez MD Work Phone: 9(169)239-629730 [place] [address] 06-06-2025 14:30-0400 Diastolic blood pressure 59 mm[Hg] Dr. Cachorro Gonzalez MD Work Phone: 0(723)878-691830 [place] [address] 06-06-2025 14:30-0400 Heart rate 81 /min Dr. Cachorro Gonzalez MD Work Phone: 2(143)080-884730 [place] [address] 06-06-2025 14:30-0400 Respiratory rate 16 /min Dr. Cachorro Gonzalez MD Work Phone: 2(065)897-857330 [place] [address] 06-06-2025 14:30-0400 SaO2% (BldA) [Mass fraction] 98 % Dr. Cachorro Gonzalez MD Work Phone: 3(451)826-728430 [place] [address] 06-06-2025 14:30-0400 Systolic blood pressure 104 mm[Hg] Dr. Cachorro Gonzalez MD Work Phone: 7(785)191-707430 [place] [address] 06-06-2025 11:13-0400 Body mass index (BMI) [Ratio] 26.4 kg/m2 Dr. Cachorro Gonzalez MD Work Phone: 5(689)836-614530 [place] [address] 06-06-2025 11:13-0400 Body weight 71.[address] Cachorro Gonzalez MD Work Phone: 9(672)171-758030 [place] [address] 05-29-2025 08:44-0400 Body height 165.[address] Cachorro Gonzalez MD Work Phone: 0(573)991-000930 [place] [address] 05-29-2025 08:44-0400 Body mass index (BMI) [Ratio] 26.4 kg/m2 Dr. Cachorro Gonzalez MD Work Phone: 1(660)750-041630 [place] [address] 05-29-2025 08:44-0400 Body weight 72.[address] Cachorro Gonzalez MD Work Phone: 5(816)940-299230 [place] [address] 05-29-2025 08:44-0400 Diastolic blood pressure 66 mm[Hg] Dr. Cachorro Gonzalez MD Work Phone: 7(830)500-801530 [place] [address] 05-29-2025 08:44-0400 Heart rate 74 /min Dr. Cachorro Gonzalez MD Work Phone: [facility] 05-29-2025 08:44-0400 Respiratory rate 17 /min Dr. Cachorro Gonzalez MD Work Phone: [facility] 05-29-2025 08:44-0400 SaO2% (BldA) [Mass fraction] 98 % Dr. Cachorro Gonzalez MD Work Phone: 7(341)269-366530 [place] [address] 05-29-2025 08:44-0400 Systolic blood pressure 108 mm[Hg] Dr. Cachorro Gonzalez MD Work Phone: 6(157)750-626030 [place] [address] 05-25-2025 09:18-0400 Body height 165.[address] Cachorro Gonzalez MD Work Phone: 9(431)204-789430 [place] [address] 05-25-2025 09:18-0400 Body mass index (BMI) [Ratio] 26.6 kg/m2 Dr. Cachorro Gonzalez MD Work Phone: 5(010)116-382130 [place] [address] 05-25-2025 09:18-0400 Body temperature 98.2 [degF] Dr. Cachorro Gonzalez MD Work Phone: 7(317)420-530030 [place] [address] 05-25-2025 09:18-0400 Body weight 72.[address] Cachorro Gonzalez MD Work Phone: 5(015)546-914430 [place] [address] 05-25-2025 09:18-0400 Diastolic blood pressure 75 mm[Hg] Dr. Cachorro Gonzalez MD Work Phone: 4(931)833-564330 [place] [address] 05-25-2025 09:18-0400 Heart rate 81 /min Dr. Cachorro Gonzalez MD Work Phone: 0(578)310-783630 [place] [address] 05-25-2025 09:18-0400 Respiratory rate 18 /min Dr. Cachorro Gonzalez MD Work Phone: 1(362)906-731330 [place] [address] 05-25-2025 09:18-0400 SaO2% (BldA) [Mass fraction] 99 % Dr. Cachorro Gonzalez MD Work Phone: 1(263)462-120430 [place] [address] 05-25-2025 09:18-0400 Systolic blood pressure 146 mm[Hg] Dr. Cachorro Gonzalez MD Work Phone: [facility] 05-23-2025 14:38-0400 Body height 165.[address] Cachorro Gonzalez MD Work Phone: [facility] 05-23-2025 14:38-0400 Body mass index (BMI) [Ratio] 26.6 kg/m2 Dr. Cachorro Gonzalez MD Work Phone: 2(610)004-481850 [address] 05-23-2025 14:38-0400 Body temperature 97.5 [degF] Dr. Cachorro Gonzalez MD Work Phone: 8(409)354-323930 [place] [address] 05-23-2025 14:38-0400 Body weight 72.[address] Cachorro Gonzalez MD Work Phone: 3(809)631-451130 [place] [address] 05-23-2025 14:38-0400 Diastolic blood pressure 74 mm[Hg] Dr. Cachorro Gonzalez MD Work Phone: 4(063)505-417730 [place] [address] 05-23-2025 14:38-0400 Heart rate 78 /min Dr. Cachorro Gonzalez MD Work Phone: 4(079)807-750630 [place] [address] 05-23-2025 14:38-0400 Respiratory rate 18 /min Dr. Cachorro Gonzalez MD Work Phone: 3(075)549-295730 [place] [address] 05-23-2025 14:38-0400 SaO2% (BldA) [Mass fraction] 97 % Dr. Cachorro Gonzalez MD Work Phone: 8(639)354-409523 [place] [address] 05-23-2025 14:38-0400 Systolic blood pressure 125 mm[Hg] Dr. Cachorro Gonzalez MD Work Phone: 3(262)242-125123 [place] [address] 05-11-2025 10:17-0400 Body height 165.[address] Cachorro Gonzalez MD Work Phone: 7(633)982-252330 [place] [address] 05-11-2025 10:17-0400 Body mass index (BMI) [Ratio] 26.8 kg/m2 Dr. Cachorro Gonzalez MD Work Phone: 0(046)521-240523 [place] [address] 05-11-2025 10:17-0400 Body temperature 97.9 [degF] Dr. Cachorro Gonzalez MD Work Phone: [facility] 05-11-2025 10:17-0400 Body weight 73.[address] Cachorro Gonzalez MD Work Phone: [facility] 05-11-2025 10:17-0400 Diastolic blood pressure 68 mm[Hg] Dr. Cachorro Gonzalez MD Work Phone: 6(010)303-754923 [place] [address] 05-11-2025 10:17-0400 Heart rate 74 /min Dr. Cachorro Gonzalez MD Work Phone: 4(751)147-068223 [place] [address] 05-11-2025 10:17-0400 Respiratory rate 18 /min Dr. Cachorro Gonzalez MD Work Phone: 9(688)861-781230 [place] [address] 05-11-2025 10:17-0400 SaO2% (BldA) [Mass fraction] 98 % Dr. Cachorro Gonzalez MD Work Phone: 9(332)242-080823 [place] [address] 05-11-2025 10:17-0400 Systolic blood pressure 112 mm[Hg] Dr. Cachorro Gonzalez MD Work Phone: 8(710)545-782650 [address] 05-08-2025 08:53-0400 Body height 165.[address] Cachorro Gonzalez MD Work Phone: 4(290)401-956930 [place] [address] 05-08-2025 08:53-0400 Body mass index (BMI) [Ratio] 26.6 kg/m2 Dr. Cachorro Gonzalez MD Work Phone: 0(479)698-179523 [place] [address] 05-08-2025 08:53-0400 Body weight 72.[address] Cachorro Gonzalez MD Work Phone: [facility] 05-08-2025 08:53-0400 Diastolic blood pressure 66 mm[Hg] Dr. Cachorro Gonzalez MD Work Phone: [facility] 05-08-2025 08:53-0400 Heart rate 80 /min Dr. Cachorro Gonzalez MD Work Phone: 2(623)140-073823 [place] [address] 05-08-2025 08:53-0400 Respiratory rate 18 /min Dr. Cachorro Gonzalez MD Work Phone: [facility] 05-08-2025 08:53-0400 Systolic blood pressure 114 mm[Hg] Dr. Cachorro Gonzalez MD Work Phone: [facility] 04-10-2025 07:55-0400 Body height 165.[address] Cachorro Gonazlez MD Work Phone: 8(049)372-469750 [address] 04-10-2025 07:55-0400 Body mass index (BMI) [Ratio] 26.9 kg/m2 Dr. Cachorro Gonzalez MD Work Phone: 2(221)897-885450 [address] 04-10-2025 07:55-0400 Body weight 73.[address] Cachorro Gonzalez MD Work Phone: 1(707)877-201430 [place] [address] 04-10-2025 07:55-0400 Diastolic blood pressure 76 mm[Hg] Dr. Cachorro Gonzalez MD Work Phone: 8(461)570-499430 [place] [address] 04-10-2025 07:55-0400 Respiratory rate 16 /min Dr. Cachorro Gonzalez MD Work Phone: [facility] 04-10-2025 07:55-0400 Systolic blood pressure 131 mm[Hg] Dr. Cachorro Gonzalez MD Work Phone: [facility] 02-07-2025 10:05-0400 Respiratory rate 16 /min Dr. Cachorro Gonzalez MD Work Phone: [facility] 02-07-2025 10:05-0400 SaO2% (BldA) [Mass fraction] 97 % Dr. Cachorro Gonzalez MD Work Phone: [facility] 02-07-2025 10:04-0400 Body temperature 97.8 [degF] Dr. Cachorro Gonzalez MD Work Phone: [facility] 02-07-2025 10:04-0400 Diastolic blood pressure 54 mm[Hg] Dr. Cachorro Gonzalez MD Work Phone: [facility] 02-07-2025 10:04-0400 Heart rate 77 /min Dr. Cachorro Gonzalez MD Work Phone: [facility] 02-07-2025 10:04-0400 Systolic blood pressure 95 mm[Hg] Dr. Cachorro Gonzalez MD Work Phone: 6(539)545-250150 [address] 02-07-2025 09:25-0400 Body temperature 97.8 [degF] Dr. Cachorro Gonzalez MD Work Phone: 2(626)339-495230 [place] [address] 02-07-2025 09:25-0400 Diastolic blood pressure 43 mm[Hg] Dr. Cachorro Gonzalez MD Work Phone: 2(117)259-258630 [place] [address] 02-07-2025 09:25-0400 Heart rate 76 /min Dr. Cachorro Gonzalez MD Work Phone: 1(809)583-568630 [place] [address] 02-07-2025 09:25-0400 Respiratory rate 18 /min Dr. Cachorro Gonzalez MD Work Phone: 4(577)913-897830 [place] [address] 02-07-2025 09:25-0400 SaO2% (BldA) [Mass fraction] 100 % Dr. Cachorro Gonzalez MD Work Phone: 0(227)905-935830 [place] [address] 02-07-2025 09:25-0400 Systolic blood pressure 113 mm[Hg] Dr. Cachorro Gonzalez MD Work Phone: 0(863)112-468830 [place] [address] 02-07-2025 07:30-0400 Body height 165.[address] Cachorro Gonzalez MD Work Phone: 4(009)637-834230 [place] [address] 02-07-2025 07:30-0400 Body mass index (BMI) [Ratio] 26 kg/m2 Dr. Cachorro Gonzalez MD Work Phone: 2(675)546-074050 [address] 02-07-2025 07:30-0400 Body weight [address] Cachorro Gonzalez MD Work Phone: 1(720)064-934630 [place] [address] 01-09-2025 13:52-0400 Body height 162.[address] Cachorro Gonzalez MD Work Phone: 2(966)675-826730 [place] [address] 01-09-2025 13:52-0400 Body mass index (BMI) [Ratio] 27.9 kg/m2 Dr. Cachorro Gonzalez MD Work Phone: [facility] 01-09-2025 13:52-0400 Body weight 73.[address] Cachorro Gonzalez MD Work Phone: [facility] 01-09-2025 13:52-0400 Diastolic blood pressure 75 mm[Hg] Dr. Cachorro Gonzalez MD Work Phone: [facility] 01-09-2025 13:52-0400 Heart rate 64 /min Dr. Cachorro Gonzalez MD Work Phone: [facility] 01-09-2025 13:52-0400 Respiratory rate 17 /min Dr. Cachorro Gonzalez MD Work Phone: [facility] 01-09-2025 13:52-0400 SaO2% (BldA) [Mass fraction] 97 % Dr. Cachorro Gonzalez MD Work Phone: [facility] 01-09-2025 13:52-0400 Systolic blood pressure 126 mm[Hg] Dr. Cachorro Gonzalez MD Work Phone: [facility] Encounters Encounter Date Encounter Type Care Provider Facility Start: 06-29-2025 ambulatory Cachorro Gonzalez Facility:[facility] Start: 06-28-2025 End: 06-28-2025 ambulatory Ngozi Carly FINANCIAL ANALYST INTERN Facility[place] Start: 06-12-2025 End: 06-12-[address] Ratna Bell MD -[facility] Work Phone: Start: 06-12-2025 End: 06-12-[address] Cachoror Gonzalez MD Work Phone: [facility] [place] [facility] Start: 06-07-2025 End: 06-07-2025 Patient encounter procedure Ngozi Carly FINANCIAL ANALYST INTERN-[facility] [place] [facility] Work Phone: Start: 06-07-2025 End: 06-07-[address] Cachorro Gonzalez MD Work Phone: [facility] Start: 06-06-2025 ambulatory Von flahertyy:YULIYA Start: 06-06-2025 Non-patient / Non-visit Dr. Von Velez MD -[facility] Start: 06-06-2025 End: 06-06-2025 Admission to same day surgery center Dr. Von Velez MD [facility] Start: 06-06-2025 End: 06-06-[address] Cachorro Gonzalez MD Work Phone: [facility] Start: 05-29-2025 End: 05-29-[address] Von Velez MD -[facility] Work Phone: Start: 05-29-2025 End: 05-29-[address] Cachorro Gonzalez MD Work Phone: -[facility] Start: 05-25-2025 End: 05-25-2025 Patient encounter procedure Ngozi Carly PAYNE-Dean -[facility] Work Phone: Start: 05-25-2025 End: 05-25-[address] Cachorro Gonzalez MD Work Phone: [facility] Start: 05-23-2025 End: 05-23-[address] Ratna Bell MD -[facility] Work Phone: Start: 05-23-2025 End: 05-23-[address] Cachorro Gonzalez MD Work Phone: [facility] Start: 05-16-[address] William Bell MD -[facility] Start: 05-11-[address] William Bell MD -[facility] Start: 05-11-2025 End: 05-11-[address] Ratna Bell MD -[facility] Work Phone: Start: 05-11-2025 End: 05-11-[address] Cachorro Gonzalez MD Work Phone: [facility] Start: 05-08-2025 End: 05-08-[address] Leonel Feng MD -[facility] Work Phone: Start: 05-08-2025 End: 05-08-[address] Cachorro Gonzalez MD Work Phone: -[facility] Start: 04-10-2025 End: 04-10-[address] Von Velez MD -[facility] Work Phone: Start: 04-10-2025 End: 04-10-[address] Cachorro Gonzalez MD Work Phone: -[facility] Start: 04-04-2025 End: 04-04-[address] Cachorro Gonzalez MD Work Phone: -[facility]patient [facility] Start: 04-04-2025 End: 04-04-[address] Cachorro Gonzalez MD -[facility] Work Phone: Start: 04-04-2025 End: 04-04-2025 ambulatory Cachorro Gonzalez Facility:[facility] Start: 03-04-2025 End: 03-04-[address] Cachorro Gonzalez MD Work Phone: -Cardiovascular Services Start: 03-04-2025 End: 03-04-[address] Cachorro Gonzalez MD -Cardiovascular Services Work Phone: Start: 03-03-2025 End: 03-04-2025 ambulatory Cachorro Gonzalez Facility:[facility] Start: 03-03-2025 Non-patient / Non-visit Dr. Agustin Morataya MD -[facility] Start: 02-23-2025 End: 02-23-[address] Cachorro Gonzalez MD Work Phone: -Laboratory [facility] Start: 02-23-2025 End: 02-23-[address] Cachorro Gonzalez MD -[facility] Start: 02-23-2025 End: 02-23-2025 ambulatory Cachorro Gonzalez Facility:[facility] Start: 02-07-2025 ambulatory Cachorro Gonzalez Facility:[facility] Start: 02-07-2025 Non-patient / Non-visit Dr. Von Velez MD -[facility] Start: 02-07-2025 End: 02-07-2025 Admission to same day surgery center Dr. Von Velez MD -Endoscopy Work Phone: Start: 02-07-2025 End: 02-07-[address] Cachorro Gonzalez MD Work Phone: [facility] Work Phone: Start: 01-09-2025 End: 01-09-[address] Von Velez MD -[facility] Work Phone: Start: 01-09-2025 End: 01-09-[address] Cachorro Gonzalez MD Work Phone: [facility] Work Phone: Start: 12-28-2024 End: 12-28-[address] Cachorro Gonzalez MD Work Phone: [facility] Work Phone: Start: 12-28-2024 End: 12-28-[address] Cachorro Gonzalez MD -[facility] Start: 12-28-2024 End: 12-28-2024 ambulatory Cachorro Gonzalez Facility:[facility] Start: 09-06-2024 End: 09-06-2024 Patient encounter procedure Candie Calderon FINANCIAL ANALYST INTERN-C -Laboratory, Specimen Work Phone: Start: 09-06-2024 End: 09-06-2024 ambulatory Candie Calderon NP Facility:[facility] Start: 12-28-2023 End: 12-28-2023 ambulatory [facility] Work Phone: Start: 12-28-2023 End: 12-28-2023 Patient encounter procedure [facility] Start: 06-26-2023 End: 06-26-2023 ambulatory [facility] Work Phone: Start: 06-26-2023 End: 06-26-2023 Patient encounter procedure [facility] Start: 07-30-2022 End: 07-30-2022 ambulatory [facility] Work Phone: Start: 07-30-2022 End: 07-30-2022 Patient encounter procedure [facility] Start: 06-25-2022 End: 06-25-2022 ambulatory [facility] Work Phone: Start: 06-25-2022 End: 06-25-2022 [facility] Start: 12-23-2021 End: 12-23-2021 [facility] Start: 02-23-2019 End: 02-23-2019 [facility] Comment on above: Right foot drop [...] identified in Urine by Culture Urine Culture [facility] Start: 06-29-2025 Registered Recurring Registered Recurring -[facility] Start: 06-28-2025 Serum inorganic phosphate measurement [facility] Start: 06-28-2025 End: 06-28-2025 Patient encounter procedure DLBCL (diffuse large B cell lymphoma) -[facility] Work Phone: Start: 06-12-2025 End: 06-12-2025 Patient encounter procedure DLBCL (diffuse large B cell lymphoma) -[facility] Work Phone: Start: 06-12-2025 Registered Recurring Registered Recurring -[facility] Start: 06-07-2025 Venous catheter care management [facility] Start: 06-06-2025 Patient discharge [facility] Start: 06-06-2025 Anesthesia access central venous circulation ANESTH VASCULAR ACCESS [facility] Start: 06-06-2025 Insj tunneled ctr vad w/subq port age 4 yr/> INSERT TUNNELED CV CATH [facility] Start: 05-16-2025 Positron emission tomography with computed tomography [facility] Start: 05-08-2025 End: 05-08-2025 Evaluation of diagnostic study results [facility] Start: 02-07-2025 Colonoscopy DIAGNOSTIC COLONOSCOPY [facility] Start: 02-07-2025 Colonoscopy flx dx w/collj spec when pfrmd DIAGNOSTIC COLONOSCOPY [facility] Start: 02-07-2025 Esophagogastroduodenoscopy EGD DIAGNOSTIC BRUSH WASH [facility] Start: 02-07-2025 Esophagogastroduodenoscopy transoral diagnostic EGD DIAGNOSTIC BRUSH WASH [facility] Start: 02-07-2025 Patient discharge [facility] Start: 04-24-2019 Influenza vaccination INFLUENZA VACCINE (#1) [facility] Start: 2009 Pneumococcal vaccination PNEUMOCOCCAL VACCINE SERIES (1 of 2 - PCV13) [facility] Start: 1994 Colonoscopy COLON CANCER SCREENING DISCUSSION [facility] Start: 1994 Zoster vaccine hzv live for subcutaneous use ZOSTER (SHINGLES) VACCINE (1 of 2) [facility] Start: 1984 Fasting lipid profile LIPID SCREENING [facility] Start: 1984 Screening mammography MAMMOGRAM SCREENING DISCUSSION [facility] Start: 1965 Screening for malignant neoplasm of cervix PAP SMEAR DISCUSSION [facility] Start: 1963 Third diphtheria, tetanus and acellular pertussis (DTaP) vaccination TDAP (ADULT) [facility] Start: 1962 Tetanus vaccination TETANUS [facility] Start: 1944 Screening for osteoporosis DEXA SCAN DISCUSSION [facility] CBC W Auto Different ial panel - Blood [facility] Colonoscopy [facility] Comprehensive metabo lic 1999 panel - Serum or Plasma [facility] Lipid 1996 panel - Serum or Plasma [facility] Magnesium measurement [facility] Patient referral [facility] Work Phone: PT Unspecified body region W [facility] Urine culture [facility] Payers Date Payer Category Payer Unknown [id number] 2024 Private Health Insurance [id number] 2024 Self-pay [id number] Medicare [id number] Unknown Unknown [id number] Unknown [id number] Unknown [id number] 2.16.8 40.1.630143.3.579.2.462 Unknown [id number] 2.16.8 40.1.527324.3.579.2.462 Unknown [id number] 2.16.8 40.1.929276.3.579.2.462 Unknown [id number] 2.16.8 40.1.904297.3.579.2.462 Unknown [id number] 2.16.8 40.1.041893.3.579.2.462 Unknown [id number] 2.16.8 40.1.222054.3.579.2.462 Unknown [id number] 2.16.8 40.1.491702.3.579.2.462 Unknown [id number] 2.16.8 40.1.040978.3.579.2.462 Unknown [id number] 2.16.8 40.1.944845.3.579.2.462 Unknown [id number] 2.16.8 40.1.017297.3.579.2.462 Unknown [id number] 2.16.8 40.1.331923.3.579.2.462 Unknown [id number] 2.16.8 40.1.174730.3.579.2.462 Unknown [id number] 2.16.8 40.1.887694.3.579.2.462 Unknown [id number] 2.16.8 40.1.920412.3.579.2.462 Unknown [id number] 2.16.8 40.1.811144.3.579.2.462 Unknown [id number] 2.16.8 40.1.413320.3.579.2.462 Unknown [id number] 2.16.8 40.1.077063.3.579.2.462 Unknown [id number] 2.16.8 40.1.616856.3.579.2.462 Unknown [id number] 2.16.8 40.1.043988.3.579.2.462 Unknown [id number] 2.16.8 40.1.310269.3.579.2.462 Unknown [id number] 2.16.8 40.1.565050.3.579.2.462 Social History Date Type Detail Facility Tobacco smoking status NHIS Unknown if ever smoked [facility] Sex Assigned At Not on file [facility] Start: 07-27-2020 End: 07-27-2020 Tobacco smoking status NHIS Unknown if ever smoked [facility] Start: 11-25-2018 Non-smoker [facility] Start: 1945 Sex Assigned At Female [facility] Start: 07-27-2020 End: 05-31-2025 Tobacco smoking status NHIS Never smoked tobacco (finding) [facility] Not [facility] NEGATED: Highlighted row Not [facility] Medical Equipment Procedure Code Equipment Code Equipment Origin al Text Equipment Identifier Dates Insertion, vascular access port ([id number]) Vascular port/catheter ([id number] FDA Start: 06-06-2025 Goals Date Patient Goal Desired Activity /State Mental Status Date Assessment Result Facility 06-06-2025 Cognitive function Voice/Name [facility] Work Phone: 02-07-2025 Cognitive function Voice/Name;Touch/Shaki ng [facility] Work Phone: Clinical Notes 01-09-2025 to 06-12-2025 Note Date & Type Note Facility 06-12-2025 Progress note [facility] 06-07-2025 Progress note [facility] 06-06-2025 History and physi deyvi note [facility] 06-06-2025 Radiology Diagnostic study note [facility] Imaging Services [address] [place] [address] CXR for Line Placement MR#: [id number] Acct: [id number] Name: JULIA PLASCENCIA YANG Rep #: [id number] : 1945 F 80 From: Juancho Tafoya MD PCP: Dr. Cachorro Gonzalez MD Status: REG S DC Study:CXR for Line Placement Date of Exam: 06/06/25 Exam# [id number] Ordering Dr: Von Oh MD PROCEDURE: CXR [...] Right chest Port-A-Cath. No pneumothorax. Reading Location: [address] CC: Dr. Von Velez MD; Dr. Cachorro Gonzalez MD ~ Tester Electronic Scale: Signed [facility] 06-06-2025 History and physical note Note Date/Time June 06, 2025 3:13pm [facility] Medical Records Department [address] [place] [address] History & Physical Exam 06/06/25 1252 MR#: [id number] Acct: [id number] Name: JULIA PLASCENCIAU Rep #:[id number] : 1945 80 From: Von bhandari MD PCP: Dr. Cachorro Gonzalez MD Status:REG S DC Location: [place] [address] History and Physical Date of Admission: 06/06/25 [...] willing to proceed. Von Velez MD Pager: [facility] [address] [place] [address], [address] [place] [address] Office: I have examined the patient and the H&P has been reviewed. There are no clinicalchanges since date of exam. 06/06/25 1252 <Electronically signed by Von Velez MD> Cosigner Signature (if applicable): CC: Dr. Von Velez MD; Dr. Cachorro Gonzalez MD~ Signed [facility] Work Phone: 1(149) 336-298110-14-2025 Consult note [facility] Medical Records Department [address] [place] [address] Anesthesia Postop Eval I 06/06/25 1416 MR#: [id number] Acct: [id number] Name: JULIA PLASCENCIAU Rep #:[id number] : 1945 80 From: Michael Marroquin CRNA PCP: Dr. Cachorro Gonzalez MD Status:REG S DC Y Race: C Location: [place] [address] Anesthesia: Postop Eval I Current Vital Signs [...] Eval 1 completed: Yes 06/06/25 141 an BACON DE RINDER> Date _ Michael Marroquin BACON DE RINDER Cosigner Signature: Date CC: ~ Signed [facility]10-14-2025 Discharge summary [facility] Medical Records Department [address] [place] [address] Instructions for Home/Discharge Instructions 06/06/25 1413 MR#: [id number] Acct: [id number] Name: JULIA PLASCENCIAU Rep #:[id number] : [...] With: Von Velez MD When: as needed [phone] Test Results: Test results from this visit will be discussed in further detail at your follow- up appointment, if applicable. Discharge Plan Admission Attending Provider: Von Velez Primary Care Provider: Cachorro Gonzalez Instructions Print Language: Tanzanian Discharge Orders/Prescriptions Prescriptions: No Action metformin 1,000 [...] CC: Dr. Cachorro Gonzalez MD ~ Signed [facility]10-14-2025 Procedure note [facility] Medical Records Department [address] [place] [address] Operative Report 06/06/25 1412 MR#: [id number] Acct: [id number] Name: JULIA PLASCENCIA Rep #:[id number] : 1945 80 From: Von bhandari MD PCP: Dr. Cachorro Gonzalez MD Status:REG S DC Location: [place] [address] Operative Report (Standard) Operative Information Date of Procedure: 06/06/25 Pre-Operative Diagnosis: Need for vascular access for chemotherapy for lymphoma Post-Operative Diagnosis: Same Surgery/Procedure Performed: Ultrasound and fluoroscopy guided right chest port placement utilizingright IJ aircraft worker: No Type of Anesthesia: Local MAC RN [...] apply: Implanted device Implanted device details: 8 [employer] Estimated Blood Loss: 5 Specimen collected: [...] Velez MD; Dr. Cachorro Gonzalez MD~ Signed [facility]10-14-2025 Consult note Author [facility] Note Date/Time June 06, 2025 1 1:52am [facility] Medical Records Department [address] [place] [address] Pre-Anesthesia Evaluation 06/06/25 1146 MR#: [id number] Acct: [id number] Name: JULIA PLASCENCIA Rep #:[id number] : 1945 80 From: Adam Peter MD PCP: Dr. Cachorro Gonzalez MD Status:REG S DC Y Race: C Location: [place] [address] ASA Classification* ASA Classification ASA Classification: 2 [...] PORT INSERTION Anesthesia History Anesthesia History - display mechanic: Anesthesia History - display mechanic Hx Hospitalization No 05/31/25 14:40 Any Problems [...] take am of surgery PONV PONV - display mechanic: PONV - display mechanic Female Yes 05/31/25 14:40 HX of Motion [...] 06/06/25 11:13 Respiratory Assessment Respiratory Assessment - display mechanic: Respiratory Tract Infection Hx - display mechanic Hx Respiratory Tract Infection No 05/31/25 14:40 STOP Sleep Apnea STOP Sleep Apnea - display mechanic: STOP Sleep Apnea - display mechanic Hx Hypertension No: hypotension 05/31/25 14:40 Hx [...] Tobacco Use History Tobacco Use History - display mechanic: Tobacco Use History - display mechanic Tobacco Use Smoking Status Never smoker 05/31/25 14:40 Hx Tobacco Use No 05/31/25 14:40 Years Smoking Packs Smoked per Day Smoking Cessation Date was within the last 15 years Hx Smoking Cessation Date Hx Smoking Cessation Counseling Hematologic Medial History Hematologic Hx - display mechanic: Hematologic Medical Hx - coding consultant Hx of Blood Transfusion Yes 05/31/25 14:40 [...] confused, unrespo /Reproduction History /Reproductive History - display mechanic: /Reproductive Hx- display mechanic Hx Now No 05/31/25 14:40 Gestational Age [...] MD Cosign Signature: Date CC: ~ Signed [facility] Work Phone: 1(143) 153-921910-14-2025 [facility] Medical Records Department [address] [place] [address] History Physical Exam 06/06/25 1252 MR#: [id number] Acct: [id number] Name: JULIA PLASCENCIA Rep #: [id number] : 1945 80 From: Von Velez MD PCP: Dr. Cachorro Gonzalez MD Status:[facility] Location: [place] [address] History and Physical Date of Admission: 06/06/25 [...] you fallen in the past year?: No [facility] Medical History (Updated 05/29/25 @ 08:44 by [...] thinners, No blood disorders (more content not included)...[facility]10-14-2025 Consult note [facility] Medical Records Department [address] [place] [address] Pre-Anesthesia Evaluation 06/06/25 1146 MR#: [id number] Acct: [id number] Name: JULIA PLASCENCIA Rep #:[id number] : 1945 80 From: Adam Peter MD PCP: Dr. Cachorro Gonzalez MD Status:REG S DC Y Race: C Location: [place] [address] ASA Classification* ASA Classification ASA Classification: 2 [...] PORT INSERTION Anesthesia History Anesthesia History - display mechanic: Anesthesia History - display mechanic Hx Hospitalization No 05/31/25 14:40 Any Problems [...] take am of surgery PONV PONV - display mechanic: PONV - display mechanic Female Yes 05/31/25 14:40 HX of Motion [...] 06/06/25 11:13 Respiratory Assessment Respiratory Assessment - display mechanic: Respiratory Tract Infection Hx - display mechanic Hx Respiratory Tract Infection No 05/31/25 14:40 STOP Sleep Apnea STOP Sleep Apnea - display mechanic: STOP Sleep Apnea - display mechanic Hx Hypertension No: hypotension 05/31/25 14:40 Hx [...] Tobacco Use History Tobacco Use History - display mechanic: Tobacco Use History - display mechanic Tobacco Use Smoking Status Never smoker 05/31/25 14:40 Hx Tobacco Use No 05/31/25 14:40 Years Smoking Packs Smoked per Day Smoking Cessation Date was within the last 15 years Hx Smoking Cessation Date Hx Smoking Cessation Counseling Hematologic Medial History Hematologic Hx - display mechanic: Hematologic Medical Hx - coding consultant Hx of Blood Transfusion Yes 05/31/25 14:40 [...] confused, unrespo /Reproduction History /Reproductive History - display mechanic: /Reproductive Hx- display mechanic Hx Now No 05/31/25 14:40 Gestational Age [...] mazin PALACIOS> Date _ Adam [facility] Signature: Date CC: ~ Signed [facility]10-06-2025 Progress [facility] [address] [place] [address] OFFICE VISIT Date of Service: 05/29/25 MR#: [id number] Acct: [id number] Name: JULIA PLASCENCIA Rep #: [id number] : 1945 Provider: Dr. Maggi Velez MD [...] you fallen in the past year?: No [facility] Medical History (Updated 05/29/25 @ 08:44 by [...] General: cooperative Orientation: alert and oriented x3 [facility] Head: normal to inspection Neck Neck: normal [...] willing to proceed. Von Velez MD Pager: [facility] [address] [place] [address], [address] [place] [phone] Office: Coding Level of Care Code Off vis,est,level 3 Diagnoses Encounter for insertion of venous access port Z45.2 Clinical Quality Measures Falls Risk Screening/Assistive Devices Have you fallen in the past year?: No 05/29/25 0928 john PALACIOS> Date _ Von Velez MD [facility] Signature: Date (if applicable) CC: ~ [facility]09-30-2025 [facility] Cancer [address] [address] OFFICE VISIT Date of Service: 05/23/25 1436 MR#: [id number] Acct: [id number] Name: JULIA PLASCENCIA Rep #: [id number] : 1945 From: Ratna nation MD Age/Sex: 80/F Location: [facility] Status: Signed HPI Subjective Date of Service [...] Note: This case will be sent to [facility] for formal consultation with the hematopathology division of the Pathology Department, to rule out a lymphoproliferative disorder. A separate report from [facility] will follow. IHCs were obtained and will be reported by the employee relations consultant pathologist. COMMENT: A portion of the tissue was sent in RPMI for flow cytometry to [facility]. The flow cytometry showed ?no immunophenotypic evidence of an abnormal population of B lymphocytes or T lymphocytes. Few B-cells detected?. Diagnosis provided by Dr Ashlyn Baeza ([facility] hematopathology division) This addendum is added to incorporate an outside pathology consultation report. The case was examined at [facility] by Dr. Monte (#[id number]) and the following diagnosis was rendered. A. [...] nodule in the spleen consistent with lymphoma. [facility] Medical History DLBCL (diffuse large B cell [...] She may elect to receive therapy in [place] where she can have further support from her 2 sons. Ratna Bell MD Plate Cutter, [facility] Divisions of Medical Oncology & Hematology Department of Internal Medicine [place] [address] This note was generated using a voice [...] Velez MD; Dr. Cachorro Gonzalez MD ~ [facility]09-18-2025 Progress [facility] [place] [address] OFFICE VISIT Date of Service: 05/11/25 1012 MR#: [id number] Acct: [id number] Name: JULIA PLASCENCIA Rep #: [id number] : 1945 From: Ratna nation MD Age/Sex: 80/F Location: [facility] Status: Signed HPI Subjective Date of Service [...] Note: This case will be sent to [facility] for formal consultation with the hematopathology division of the Pathology Department, to rule out a lymphoproliferative disorder. A separate report from [facility] will follow. IHCs were obtained and will be reported by the employee relations consultant pathologist. COMMENT: A portion of the tissue was sent in RPMI for flow cytometry to [facility]. The flow cytometry showed ?no immunophenotypic evidence of an abnormal population of B lymphocytes or T lymphocytes. Few B-cells detected?. Diagnosis provided by Dr Ashlyn Baeza ([facility] hematopathology division) This addendum is added to incorporate an outside pathology consultation report. The case was examined at [facility] by Dr. Monte (#[id number]) and the following diagnosis was rendered. A. [...] not otherwise specified, with germinal center immunophenotype. [facility] Medical History (Updated 05/11/25 @ 10:51 by [...] no focal motor deficits Coordination / Balance: [id number]-[id number] test normal Speech: speech normal Gait (Neuro): [...] seen with her . Ratna Bell MD Plate Cutter, [facility] Divisions of Medical Oncology & Hematology Department of Internal Medicine [place] [address] This note was generated using a voice [...] Velez MD; Dr. Cachorro Gonzalez MD ~ [facility]09-15-2025 [facility] [address] [place], [place] [address]. [address] [place] [address] OFFICE VISIT Date of Service: 05/08/25 MR#: [id number] Acct: [id number] Name: JULIA PLASCENCIA Rep #: [id number] : 1945 Provider: Dr. Lai Feng MD Age/Sex: 80/F Location: [facility] Status: Signed HPI HPI History of Present [...] Monitor Intake Visit Reasons: ABN HOLTER (DEVONTE) Title Processor Required: No Accompanied by: Is patient in [...] 0931 MD> Date _ Leonel [facility] Signature: Date (if applicable) CC: Dr. Cachorro Gonzalez MD ~ [facility]09-15-2025 Progress note Author Leonel Feng [facility] Note Date/Time May 08, 2025 9:31am [facility] [address] [place] [address] OFFICE VISIT Date of Service: 05/08/25 MR#: [id number] Acct: [id number] Name: JULIA PLASCENCIA Rep #: [id number] : 1945 Provider: Dr. Lai Feng MD Age/Sex: 80/F Location: [facility] Status: Signed HPI HPI History of Present [...] Monitor Intake Visit Reasons: ABN HOLTER (DEVONTE) Title Processor Required: No Accompanied by: Is patient in [...] applicable) CC: Dr. Cachorro Gonzalez MD ~ [facility] Work Phone: 1(297) 993-196208-18-2025 Evaluation note* Diagnosis Onset Date Resolution Status Admit Date Left breast mass acute March 242024 7:46am Aortic valve stenosis chronic Sep 2024 8:33am Atrial tachycardia chronic Septem 2024 8:33am Diabetes chronic April 8:33am Diastolic dysfunction withou t heart failure chronic May 08, 2025 8:33am B-cell lymphoma deleted May 08, 2025 8:33am DLBCL (diffuse large B cell lymphoma) acute May 11, 2025 10:07am [facility] Work Phone: 1(531) 106-498208-18-2025 Evaluation note* Diagnosis Onset Date Resolution Status [...] cell lymphoma) acute May 23, 2025 1:57pm [facility] Work Phone: 1(927) 801-163908-18-2025 Evaluation note* Diagnosis Onset Date Resolution Status [...] B cell lymphoma) acute May 25 8:34am [facility] Work Phone: 1(839) 370-915608-18-2025 Evaluation note* Diagnosis Onset Date Resolution Status [...] venous access port acute May 29, 2025 8:36[facility] Work Phone: 1(104) 283-970808-18-2025 Evaluation note* Diagnosis Onset Date Resolution Status [...] B cell lymphoma) acute June 12 9:01am [facility] Work Phone: 1(809) 886-904708-18-2025 Evaluation note* Diagnosis Onset Date Resolution Status [...] and immunotherapy acute N ovember 2024 7:32am [facility] Work Phone: 1(255) 250-922208-18-2025 Progress [facility] [address] [place] [address] OFFICE VISIT Date of Service: 04/10/25 MR#: [id number] Acct: [id number] Name: JULIA PLASCENCIA Rep #: [id number] : 1945 Provider: Dr. Maggi Velez MD Age/Sex: 80/F Location: [facility] Status: Signed Intake Vital Signs 02/07/25 07:30 04/10/25 07:55 Height 5 ft 5 in 5 ft 5 in Weight: 162 lb BMI 26.9 BP 131/76 H Blood Pressure Location Rt brachial Position Sitting Respiration 16 Intake Visit Reasons: BIRADS 4 Chief Complaint: left breast mass Title Processor Required: No Is patient in pain?: No [...] General: cooperative Orientation: alert and oriented x3 [facility] Head: normal to inspection Neck Neck: normal [...] well. Alert Jose Yes Biopsy Lymphnode Biopsy: 69682 Lymphnode Procedure Time Out Time Out Informed [...] the procedure well. Von Velez MD Pager: [facility] [address] [place] [address] Office: Orders: Orders Biopsy Today N63.20 - Unspecified lump in the left breast, unspecified quadrant Coding Level of Care Code Off vis,est,level 3 Diagnoses Left breast mass N63.20 CPT Codes Biopsy - Lymphnode Biopsy: 19650 Lymphnode (93305) Clinical Quality Measures Falls Risk Screening/Assistive Devices Have you fallen in the past year?: No 04/10/25 0815 john PALACIOS> Date _ Von Velez MD Cosigner Signature: Date (if applicable) CC: Dr. Cachorro Gonzalez MD ~ [facility]08-18-2025 Progress note Author Von Velez [facility] Note Date/Time April 10, 2025 8: 15am [facility] [address] [place] [address] OFFICE VISIT Date of Service: 04/10/25 MR#: [id number] Acct: [id number] Name: JULIA PLASCENCIA Rep #: [id number] : 1945 Provider: Dr. Maggi Velez MD Age/Sex: 80/F Location: [facility] Status: Signed Intake Vital Signs 02/07/25 07:30 04/10/25 07:55 Height 5 ft 5 in 5 ft 5 in Weight: 162 lb BMI 26.9 BP 131/76 H Blood Pressure Location Rt brachial Position Sitting Respiration 16 Intake Visit Reasons: BIRADS 4 Chief Complaint: left breast mass Title Processor Required: No Is patient in pain?: No [...] well. Alert Jose Yes Biopsy Lymphnode Biopsy: 58781 Lymphnode Procedure Time Out Time Out Informed [...] the procedure well. Von Velez MD Pager: [facility] [address] [place] [address], [address] [place] [phone] Office: Orders: Orders Biopsy Today N63.20 - Unspecified lump in the left breast, unspecified quadrant Coding Level of Care Code Off vis,est,level 3 Diagnoses Left breast mass N63.20 CPT Codes Biopsy - Lymphnode Biopsy: 14003 Lymphnode (29147) Clinical Quality Measures Falls Risk Screening/Assistive Devices Have you fallen in the past year?: No 04/10/25 0815 <Electronically signed by Von lopez MD> Date _ Von Velez MD Cosigner Signature: Date (if applicable) CC: Dr. Cachorro Gonzalez MD ~ [facility] Work Phone: 1(767) 494-650408-12-2025 Radiology Diagnostic study note [facility] Imaging Services [address] [place] [address] Breast Limited Unilateral MR#: [id number] Acct: [id number] Name: JULIA PLASCENCIA Rep #: [id number] : 1945 F 80 From: Annie William MD PCP: Dr. Cachorro Gonzalez MD Status: CARLO CELESTIN Study:Breast Limited Unilateral Date of Exam: 04/04/25 Exam# [id number] Ordering Dr: Cachorro Gonzalez MD EXAM: DIAG [...] be mailed to the patient. Reading Location: [facility] CC: Dr. Cachorro Gonzalez MD ~ Tester Electronic Scale: Signed [facility]06-17-2025 Consult note Author Jose Raul Arben [facility] Note Date/Time February 07, 2025 7:42 am [facility] Medical Records Department [address] [place] [address] Pre-Anesthesia Evaluation 02/07/25 0737 MR#: [id number] Acct: [id number] Name: JULIA PLASCENCIA Rep #:[id number] : 1945 79 From: Jose Raul Theodore MD PCP: Dr. Cachorro Gonzalez MD Status:REG S DC Y Race: C Location: [place] [address] ASA Classification* ASA Classification ASA Classification: 2 [...] Procedure(s): COLONOSCOPY/EGD Anesthesia History Anesthesia History - display mechanic: Anesthesia History - display mechanic Hx Hospitalization No 02/03/25 09:14 Any Problems [...] take am of surgery PONV PONV - display mechanic: PONV - display mechanic Female Yes 02/03/25 09:14 HX of Motion [...] 02/07/25 07:30 Respiratory Assessment Respiratory Assessment - display mechanic: Respiratory Tract Infection Hx - display mechanic Hx Respiratory Tract Infection No 02/03/25 09:14 STOP Sleep Apnea STOP Sleep Apnea - display mechanic: STOP Sleep Apnea - display mechanic Hx Hypertension No: hypotension 02/03/25 09:14 Hx [...] Tobacco Use History Tobacco Use History - display mechanic: Tobacco Use History - display mechanic Tobacco Use Smoking Status Never smoker 02/03/25 09:14 Hx Tobacco Use No 02/03/25 09:14 Years Smoking Packs Smoked per Day Smoking Cessation Date was within the last 15 years Hx Smoking Cessation Date Hx Smoking Cessation Counseling Hematologic Medial History Hematologic Hx - display mechanic: Hematologic Medical Hx - coding consultant Hx of Blood Transfusion Yes 02/03/25 09:14 [...] confused, unrespo /Reproduction History /Reproductive History - display mechanic: /Reproductive Hx- display mechanic Hx Now No 02/03/25 09:14 Gestational Age [...] Raul Michel Signature: Date CC: ~ Signed [facility] Work Phone: 1(663) [phone] Procedure note [facility] Medical Records Department [address] [place] [address] Colonoscopy Report MR#: [id number] Acct: [id number] Name: JULIA PLASCENCIA Rep #:[id number] : [...] screening purposes. Procedure Code(s): --- Professional --- 12129, Colonoscopy, flexible; diagnostic, including collection of specimen(s) by brushing or washing, when performed (separate procedure) Diagnosis Code(s): --- Professional --- D50.9, Iron deficiency anemia, unspecified CPT copyright 2021 [employer]. All rights reserved. The codes documented in this report are preliminary and upon skin peeling machine operator review may be revised to meet current compliance requirements. Von Velez MD 02/07/2025 8:59:20 AM This report has been signed electronically. Number of Addenda: 0 Note Initiated On: 02/07/2025 8:32 AM 02/07/25 0859 Date _ Von Velez MD Cosigner Signature: Date (if indicated) CC: Dr. Von Velez MD; Dr. Cachorro Gonzalez MD ~ Date Dictated: 02/07/25831 Date Transcribed: Tester Electronic Scale: ALTAGRACIA Signed [facility]06-17-2025 Procedure note [facility] Medical Records Department [address] [place] [id number] Operative Report - CC Letter MR#: [id number] Acct: [id number] Name: JULIA PLASCENCIA Rep #:[id number] : 1945 79 From: Von bhandari MD PCP: Dr. Cachorro Gonzalez MD Status:REG S DC 02/07/2025 Cachorro Gonzalez MD [address] [place] [phone] Re : Colonoscopy procedure for Julia Plascencia [...] MD ~ Date Dictated: 02/07/25831 Date Transcribed: Tester Electronic Scale: AC Signed [facility]06-17-2025 Procedure note [facility] Medical Records Department [address] [place] [address] EGD Report MR#: [id number] Acct: [id number] Name: JULIA PLASCENCIA Rep #:[id number] : [...] present medications. Procedure Code(s): --- Professional --- 44023, Esophagogastroduodenoscopy, flexible, transoral; diagnostic, including collection of specimen(s) by brushing or washing, when performed (separate procedure) Diagnosis Code(s): --- Professional --- D50.9, Iron deficiency anemia, unspecified CPT copyright 2021 [employer]. All rights reserved. The codes documented in this report are preliminary and upon skin peeling machine operator review may be revised to meet current compliance requirements. Von Velez MD 02/07/2025 8:56:06 AM This report has been signed electronically. Number of Addenda: 0 Note Initiated On: 02/07/2025 8:23 AM 02/07/25855 Date _ Von Velez MD Cosigner Signature: Date (if indicated) CC: Dr. Von Velez MD; Dr. Cachorro Gonzalez MD ~ Date Dictated: 02/07/25822 Date Transcribed: Tester Electronic Scale: AC Signed [facility]06-17-2025 Procedure note [facility] Medical Records Department [address] [place] [address] Operative Report - CC Letter MR#: [id number] Acct: [id number] Name: JULIA PLASCENCIA Rep #:[id number] : 1945 79 From: Von bhandari MD PCP: Dr. Cachorro Gonzalez MD Status:REG S DC 02/07/2025 Cachorro Gonzalez MD [address] [place] [address] Re : Upper GI endoscopy procedure for [...] MD ~ Date Dictated: 02/07/25822 Date Transcribed: Tester Electronic Scale: ALTAGRACIA Signed [facility]06-17-2025 History and physical note [facility] Medical Records Department [address] [place] [address] History & Physical Exam 02/07/25814 MR#: [id number] Acct: [id number] Name: JULIA PLASCENCIA Rep #:[id number] : 1945 79 From: Von bhandari MD PCP: Dr. Cachorro Gonzalez MD Status:REG S DC Location: [facility] History and Physical Date of Admission: [...] General: cooperative Orientation: alert and oriented x3 HENND Head: normal to inspection Neck Neck: normal [...] proceed with procedure. Von Velez MD Pager: [facility] [address] [place] [address], [address] [place] [phone] Office: I have examined the patient and the H&P has been reviewed. There are no clinicalchanges since date of exam. 02/07/25814 Cosigner Signature (if applicable): CC: Dr. Von Velez MD; Dr. Cachorro Gonzalez MD~ Signed [facility]06-17-2025 [facility] Medical Records Department [address] [place], [place] [id number] History Physical Exam 02/07/25814 MR#: [id number] Acct: [id number] Name: JULIA PLASCENCIA Rep #: [id number] : 1945 79 From: Von Velez MD PCP: Dr. Cachorro Gonzalez MD Status:[facility] Location: [place] [address] History and Physical Date of Admission: 02/07/25 [...] ROM Chest Chest pal (more content not included)...[facility]06-17-2025 Consult note [facility] Medical Records Department [address] [place] [address] Pre-Anesthesia Evaluation 02/07/25 0737 MR#: [id number] Acct: [id number] Name: JULIA PLASCENCIA Rep #:[id number] : 1945 79 From: Jose Raul Theodore MD PCP: Dr. Cachorro Gonzalez MD Status:REG S DC Y Race: C Location: [place] [address] ASA Classification* ASA Classification ASA Classification: 2 [...] Procedure(s): COLONOSCOPY/EGD Anesthesia History Anesthesia History - display mechanic: Anesthesia History - display mechanic Hx Hospitalization No 02/03/25 09:14 Any Problems [...] take am of surgery PONV PONV - display mechanic: PONV - display mechanic Female Yes 02/03/25 09:14 HX of Motion [...] 02/07/25 07:30 Respiratory Assessment Respiratory Assessment - display mechanic: Respiratory Tract Infection Hx - display mechanic Hx Respiratory Tract Infection No 02/03/25 09:14 STOP Sleep Apnea STOP Sleep Apnea - display mechanic: STOP Sleep Apnea - display mechanic Hx Hypertension No: hypotension 02/03/25 09:14 Hx [...] Tobacco Use History Tobacco Use History - display mechanic: Tobacco Use History - display mechanic Tobacco Use Smoking Status Never smoker 02/03/25 09:14 Hx Tobacco Use No 02/03/25 09:14 Years Smoking Packs Smoked per Day Smoking Cessation Date was within the last 15 years Hx Smoking Cessation Date Hx Smoking Cessation Counseling Hematologic Medial History Hematologic Hx - display mechanic: Hematologic Medical Hx - coding consultant Hx of Blood Transfusion Yes 02/03/25 09:14 [...] confused, unrespo /Reproduction History /Reproductive History - display mechanic: /Reproductive Hx- display mechanic Hx Now No 02/03/25 09:14 Gestational Age [...] MD Cosigner Signature: Date CC: ~ Signed [facility]05-19-2025 Evaluation note* Diagnosis Onset Date Resolution Status Admit Date Anemia acute January 09, 2025 1:32pm H/O gastric bypass acute January 092024 1:32pm [facility] Work Phone: 1(497) 455-473505-19-2025 Evaluation note* Diagnosis Onset Date Resolution Status Admit Date Anemia acute January 09, 2025 1:32pm H/O gastric bypass acute January 092024 1:32pm Left breast mass acute March 242024 7:46am [facility] Work Phone: 1(326) 115-903605-19-2025 Evaluation note* Diagnosis Onset Date Resolution Status Admit Date Anemia acute January 09, 2025 1:32pm H/O gastric bypass acute January 092024 1:32pm Left breast mass acute March 242024 7:46am Aortic valve stenosis chronic Sep 2024 8:33am Atrial tachycardia chronic 2024 8:33am B-cell lymphoma chronic May 08, 2025 8:33am Diabetes chronic April 8:33am Diastolic dysfunction withou t heart failure chronic May 08, 2025 8:33am [facility] Work Phone: 1(799) 843-153605-19-2025 Progress [facility] [address] [place] [address] OFFICE VISIT Date of Service: 01/09/25 MR#: [id number] Acct: [id number] Name: JULIA PLASCENCIA Rep #: [id number] : 1945 Provider: Dr. Maggi Velez MD [...] proceed with procedure. Von Velez MD Pager: [facility] [address] [place] [address], [address] [place] [address] Office: Coding Level of Care Code Off [...] applicable) CC: Dr. Cachorro Gonzalez MD ~ [facility]05-19-2025 Progress note Author Von Velez [facility] Note Date/Time January 09, 2025 2:00p [facility] [address] [place] [address]. [address] [place] [address] OFFICE VISIT Date of Service: 01/09/25 MR#: [id number] Acct: [id number] Name: JULIA PLASCENCIA Rep #: [id number] : 1945 Provider: Dr. Maggi Velez MD [...] General: cooperative Orientation: alert and oriented x3 [facility] Head: normal to inspection Neck Neck: normal [...] proceed with procedure. Von Velez MD Pager: [facility] [address] [place] [address], [address] [place] [address] Office: Coding Level of Care Code Off [...] applicable) CC: Dr. Cachorro Gonzalez MD ~ [facility] Work Phone: Consult note [facility] Medical Records Department [address] [place], [place] [phone] Anesthesia Postop Eval II 06/06/252214 MR#: [id number] Acct: [id number] Name: JULIA PLASCENCIA Rep #:[id number] : 1945 80 From: Adam Peter MD PCP: Dr. Cachorro Gonzalez MD Status:DEP S DC Y Race: C [place] [facility]esthesia Postop Eval I Sum Postop Eval Completion status Anesthesia document: Postop Eval 1 completed: Yes Anesthesia Postop Eval I Summary Anesthesia Postop Eval I Summary: Anesthesia Postop Eval I: Assessment Summary Airway patent Yes 06/06/25 14:19 BAC[place] RINDER.SHOF Spontaneous unlabored Yes 06/06/25 14:19 [place].SHOF respirations Mental status Awake,Calm 06/06/25 14:19 [place].SHOF nausea No 06/06/25 14:19 [place].SHOF Vomiting No 06/06/25 14:19 [place].SHOF Anesthesia Postop Eval I: Fluid Summary Crystalloid volume administer 600 06/06/25 14:19 BAC[place] RINDER.SHOF (ml) Colloids volume administered ( ml) Blood Product volume administered (ml) Total IV fluid infused 600 06/06/25 14:19 [place] R[place]ER.SHOF Anesthesia Postop Eval I: Summary Notes Anesthesia Complication No 06/06/25 14:19 [place] R[place]ER.SHOF Anesthesia Complication Comment: Post-operative progress note Anesthesia: Postop Eval II Evaluation Mental status: Awake and Calm Pain Level: 1 nausea: No Vomiting: No Complications Anesthesia Complication: No 06/06/25 2216 mazin PALACIOS> Date _ Adam Peter MD Cosigner Signature: Date CC: ~ [facility] Michael Marroquin [facility] Note Date/Time June 06, 2025 2 :19pm [facility] Medical Records Department [address] [place] [address] [place] [address] Anesthesia Postop Eval I 06/06/25 1416 MR#: [id number] Acct: [id number] Name: JULIA PLASCENCIA Rep #:[id number] : 1945 80 From: Michael Marroquin CRNA PCP: Dr. Cachorro Gonzalez MD Status:CARLO Rodriguez DC Y Race: C Location: [place] [address] Anesthesia: Postop Eval I Current Vital Signs [...] CRNA Cosigner Signature: Date CC: ~ Signed [facility] Work Phone: Consult note Author Adam [facility] Note Date/Time June 06, 2025 1 0:16pm [facility] Medical Records Department [address] [place] [address] Anesthesia Postop Eval II 06/06/255 MR#: [id number] Acct: [id number] Name: JULIA PLASCENCIA Rep #:[id number] : 1945 80 From: Adam Peter MD PCP: Dr. Cachorro Gonzalez MD Status:DEP S ELIZABETH Y Race: C [place] [facility]esthesia Postop Eval I Sum Postop Eval Completion status Anesthesia document: Postop Eval 1 completed: Yes Anesthesia Postop Eval I Summary Anesthesia Postop Eval I Summary: Anesthesia Postop Eval I: Assessment Summary Airway patent Yes 06/06/25 14:19 BAC[place] RINDER.SHOF Spontaneous unlabored Yes 06/06/25 14:19 [place] R[place].SHOF respirations Mental status Awake,Calm 06/06/25 14:19 [place] R[place].SHOF nausea No 06/06/25 14:19 [place] R[place].SHOF Vomiting No 06/06/25 14:19 [place] R[place].SHOF Anesthesia Postop Eval I: Fluid Summary Crystalloid volume administer 600 06/06/25 14:19 BACON DE RINDER.SHOF (ml) Colloids volume administered ( ml) Blood Product volume administered (ml) Total IV fluid infused 600 06/06/25 14:19 [place] RINDER.SHOF Anesthesia Postop Eval I: Summary Notes Anesthesia Complication No 06/06/25 14:19 [place]AC[place] RINDER.SHOF Anesthesia Complication Comment: Post-operative progress note Anesthesia: Postop Eval II Evaluation Mental status: Awake and Calm Pain Level: 1 nausea: No Vomiting: No Complications Anesthesia Complication: No 06/06/256 <Electronically signed by Adam retana MD> Date _ Adam Peter MD Cosigner Signature: Date CC: ~ Signed [facility] Work Phone: Discharge summary Author Von Velez [facility] Note Date/Time June 06, 2025 2 :14pm [facility] Medical Records Department [address] [place] [address] Instructions for Home/Discharge Instructions 06/06/25 1413 MR#: [id number] Acct: [id number] Name: JULIA PLASCENCIA Rep #:[id number] : [...] With: Von Velez MD When: as needed [phone] Test Results: Test results from this visit will be discussed in further detail at your follow- up appointment, if applicable. Discharge Plan Admission Attending Provider: Vno Velez Primary Care Provider: Cachorro Gonzalez Instructions Print Language: Tanzanian Discharge Orders/Prescriptions Prescriptions: No Action metformin 1,000 [...] CC: Dr. Cachorro Gonzalez MD ~ Signed [facility] Work Phone: Evaluation noteNo assessment information available [facility] Work Phone: Evaluation note* Diagnosis Onset Date Resolution Status Admit Date Anemia acute January 09, 2025 1:32pm H/O gastric bypass acute January 092024 1:32pm [facility] Work Phone: History and physical note Author oVn Velez [facility] Note Date/Time February 07, 2025 8:15 am [facility] Medical Records Department [address] [place] [address] History & Physical Exam 02/07/25 0815 MR#: [id number] Acct: [id number] Name: JULIA PLASCENCIA Rep #:[id number] : 1945 79 From: Von bhandari MD PCP: Dr. Cachorro Gonzalez MD Status:REG S NC Location: [place] [address] History and Physical Date of Admission: 02/07/25 [...] General: cooperative Orientation: alert and oriented x3 [facility] Head: normal to inspection Neck Neck: normal [...] proceed with procedure. Von Velez MD Pager: [facility] [address] [place] [address] [address] [place] [address] Office: I have examined the patient and the H&P has been reviewed. There are no clinicalchanges since date of exam. 02/07/25 0815 <Electronically signed by Von Velez MD> Cosigner Signature (if applicable): CC: Dr. Von Velez MD; Dr. Cachorro Gonzalez MD~ Signed [facility] Work Phone: Hospital Discharge instructionsAmbulatory Orders* General Surgery Location: None Selected [facility] Work Phone: Progress note Author Ratna Bell [facility] Note Date/Time May 11, 2025 11:01am [facility] [address] [place] [address] OFFICE VISIT Date of Service: 05/11/25 1012 MR#: [id number] Acct: [id number] Name: JULIA PLASCENCIA Rep #: [id number] : 1945 From: Ratna nation MD Age/Sex: 80/F [place] [facility] Status: Signed HPI Subjective Date of Service [...] Note: This case will be sent to [facility] for formal consultation with the hematopathology division of the Pathology Department, to rule out a lymphoproliferative disorder. A separate report from [facility] will follow. IHCs were obtained and will be reported by the employee relations consultant pathologist. COMMENT: A portion of the tissue was sent in RPMI for flow cytometry to [facility]. The flow cytometry showed ?no immunophenotypic evidence of an abnormal population of B lymphocytes or T lymphocytes. Few B-cells detected?. Diagnosis provided by Dr Ashlyn Baeza ([facility] hematopathology division) This addendum is added to incorporate an outside pathology consultation report. The case was examined at [facility] by Dr. Monte (#[id number]) and the following diagnosis was rendered. A. [...] not otherwise specified, with germinal center immunophenotype. [facility] Medical History (Updated 05/11/25 @ 10:51 by [...] no focal motor deficits Coordination / Balance: siawwe-lm-ptsv test normal Speech: speech normal Gait (Neuro): [...] seen with her . Ratna Bell MD Plate Cutter, [facility] Divisions of Medical Oncology & Hematology Department of Internal Medicine [place] [address] This note was generated using a voice [...] Velez MD; Dr. Cachorro Gonzalez MD ~ [facility] Work Phone: Progress note Author Ratna Bell [facility] Note Date/Time May 23, 2025 3:17pm [facility] [place] [phone] OFFICE VISIT Date of Service: 05/23/25 1436 MR#: [id number] Acct: [id number] Name: JULIA PLASCENCIA Rep #: [id number] : 1945 From: Ratna nation MD Age/Sex: 80/F [place] [facility] [place]: Signed HPI Subjective Date of Service [...] Note: This case will be sent to [facility] for formal consultation with the hematopathology division of the Pathology Department, to rule out a lymphoproliferative disorder. A separate report from [facility] will follow. IHCs were obtained and will be reported by the employee relations consultant pathologist. COMMENT: A portion of the tissue was sent in RPMI for flow cytometry to [facility]. The flow cytometry showed ?no immunophenotypic evidence of an abnormal population of B lymphocytes or T lymphocytes. Few B-cells detected?. Diagnosis provided by Dr Ashlyn Baeza ([facility] hematopathology division) This addendum is added to incorporate an outside pathology consultation report. The case was examined at [facility] by Dr. Monte (#[id number]) and the following diagnosis was rendered. A. [...] nodule in the spleen consistent with lymphoma. [facility] Medical History DLBCL (diffuse large B cell [...] She may elect to receive therapy in [place] where she can have further support from her 2 sons. Ratna Bell MD Plate Cutter, [facility] Divisions of Medical Oncology & Hematology Department of Internal Medicine [place] [phone] This note was generated using a voice [...] Velez MD; Dr. Cachorro Gonzalez MD ~ [facility] Work Phone: Progress note Author Von Velez [facility] Note Date/Time May 29, 2025 8: 53am [facility] [address] [facility] [place] [address] OFFICE VISIT Date of Service: 05/29/25 MR#: [id number] Acct: [id number] Name: JULIA PLASCENCIA Rep #: [id number] : 1945 Provider: Dr. Maggi Velez MD [...] willing to proceed. Von Velez MD Pager: [facility] [address] [place] [address] [address] [place] [address] Office: Coding Level of Care Code Off vis,est,level 3 Diagnoses Encounter for insertion of venous access port Z45.2 Clinical Quality Measures Falls Risk Screening/Assistive Devices Have you fallen in the past year?: No 05/29/25 0928 <Electronically signed by Von lopez MD> Date _ Von Velez MD Cosigner Signature: Date (if applicable) CC: ~ [facility] Work Phone: Progress note Author Ngozi Carly [facility] Note Date/Time June 07, 2025 8 :56am [facility] [place] [address] OFFICE VISIT Date of Service: 06/07/25 0803 MR#: [id number] Acct: [id number] Name: JULIA PLASCENCIA Rep #: [id number] : 1945 From: Ngozi Matamoros FINANCIAL ANALYST INTERN FINANCIAL ANALYST INTERN-C Age/Sex: 80/F [place] [facility] Status: Signed HPI Subjective Date of Service [...] Note: This case will be sent to [facility] for formal consultation with the hematopathology division of the Pathology Department, to rule out a lymphoproliferative disorder. A separate report from [facility] will follow. IHCs were obtained and will be reported by the employee relations consultant pathologist. COMMENT: A portion of the tissue was sent in RPMI for flow cytometry to [facility]. The flow cytometry showed ?no immunophenotypic evidence of an abnormal population of B lymphocytes or T lymphocytes. Few B-cells detected?. Diagnosis provided by Dr Ashlyn Baeza ([facility] hematopathology division) This addendum is added to incorporate an outside pathology consultation report. The case was examined at [facility] by Dr. Monte (#[id number]) and the following diagnosis was rendered. A. [...] Denies any concerns related to today's visit. [facility] Medical History (Updated 06/07/25 @ 08:50 by Ngozi Carroll NP, FINANCIAL ANALYST INTERN-C) Encounter for antineoplastic chemotherapy and immunotherapy Encounter [...] applicable) CC: Dr. Cachorro Gonzalez MD ~ [facility] Work Phone: Progress note Author Ratna Bell [facility] Note Date/Time June 12, 2025 1 2:00pm [facility] [place] [address] OFFICE VISIT Date of Service: 06/12/25 1010 MR#: [id number] Acct: [id number] Name: JULIA PLASCENCIA Rep #: [id number] : 1945 From: Ratna nation MD Age/Sex: 80/F [place] [facility] Status: Signed HPI Subjective Date of Service [...] Note: This case will be sent to [facility] for formal consultation with the hematopathology division of the Pathology Department, to rule out a lymphoproliferative disorder. A separate report from [facility] will follow. IHCs were obtained and will be reported by the employee relations consultant pathologist. COMMENT: A portion of the tissue was sent in RPMI for flow cytometry to [facility]. The flow cytometry showed ?no immunophenotypic evidence of an abnormal population of B lymphocytes or T lymphocytes. Few B-cells detected?. Diagnosis provided by Dr Ashlyn Baeza ([facility] hematopathology division) This addendum is added to incorporate an outside pathology consultation report. The case was examined at [facility] by Dr. Monte (#[id number]) and the following diagnosis was rendered. A. [...] summary and response: R-CHOP June 07, 2025 [facility] Medical History Encounter for antineoplastic chemotherapy and [...] no focal motor deficits Coordination / Balance: qrjgig-be-xgmw test normal Speech: speech normal Gait (Neuro): [...] She may elect to receive therapy in [place] where she can have further support from her 2 sons. Ratna Bell MD Plate Cutter, [facility] Divisions of Medical Oncology & Hematology Department of Internal Medicine [place] [address] This note was generated using a voice [...] Cosigner Signature: Date (if applicable) CC: ~ [facility] Work Phone: Reason for referral (narrative)No reason for referral information available[facility] Work Phone: Reason for Referral Status Reason Specialty Diagnoses / Procedures Referred By Contact Referred To Contact New Request Neurology Diagnoses Right foot drop Sidney Ott MD [address] [place] [phone] Assessments Diagnosis Right foot drop- Primary Other acquired deformity of ankle and foot Advance Directives No Advanced Directives Records Found Advance Directive Response Recorded Date/ Time Living Will Yes October 24, 2019 11:09am Power of Drawer Liner Yes October 23 0 11:09am Advance Directive Response Recorded Date/ Time Living Will Yes October 24, 2019 10:09am Power of Drawer Liner Yes October 23 0 10:09am Advance Directive Response Recorded Date/ Time Do you have a Healthcare Power of Drawer Liner? Yes February 03, 2025 9:14am Advance Directive Response Recorded Date/ Time Do you have a Healthcare Power of Drawer Liner? Yes May 31, 2025 2:40pm Advance Directives on File Yes Octob 2024 9:35am Living Will Yes June 09 9:35am Do you have a Healthcare Power of Drawer Liner? Yes June 09, 2025 9:35am Name of Medical Power of Drawer Liner Aminta patel June 09, 2025 9:35am Advance Directives Yes June 09, 2025 9:35am Advance Directive Response Recorded Date/ Time Do you have a Healthcare Power of Drawer Liner? Yes May 31, 2025 1:40pm Advance Directives on File Yes Novem 2024 9:31am Living Will Yes June 29 9:31am Do you have a Healthcare Power of Drawer Liner? Yes June 29, 2025 9:31am Name of Medical Power of Drawer Liner Aminta patel June 29, 2025 9:31am Advance [...] 2024 End: September 06, 2024 Candie Calderon FINANCIAL ANALYST INTERN, FINANCIAL ANALYST INTERN-C Attending Provider Active Start: September 06, 2024 [...] 2024 End: December 28, 2024 Dr. Cachorro Gonazlez MD Referring Provider Active Start: December 28, [...] 04, 2025 End: April 04, 2025 Dr. Ccahorro Gonzalez MD Attending Provider Active Start: April [...] Status Dates Dr. Ccahorro Gonzalez MD Primary Care Provider Active Start: [...] 2025 End: May 23, 2025 Dr. Cachorro Gonzalze MD Referring Provider Active Start: May 23, [...] 2025 End: May 25, 2025 Ngozi Carroll FINANCIAL ANALYST INTERN, FINANCIAL ANALYST INTERN-C Attending physician Active Start: May 25, 2025 [...] 2025 End: May 25, 2025 Ngozi Carroll FINANCIAL ANALYST INTERN, FINANCIAL ANALYST INTERN-C Attending physician Active Start: May 25, 2025 [...] 2025 End: June 06, 2025 Dr. Von Veelz MD Attending physician Active Start: June 06, [...] 2025 End: June 07, 2025 Ngozi Carroll FINANCIAL ANALYST INTERN, FINANCIAL ANALYST INTERN-C Attending physician Active Start: June 07, 2025 [...] 2025 End: May 25, 2025 Ngozi Carroll FINANCIAL ANALYST INTERN, FINANCIAL ANALYST INTERN-C Attending physician Active Start: May 25, 2025 [...] End: June 07, 2025 Ngozi Carroll NP, FINANCIAL ANALYST INTERN-C Attending physician Active Start: June 07, 2025 [...] 2025 End: June 28, 2025 Ngozi Carroll FINANCIAL ANALYST INTERN, FINANCIAL ANALYST INTERN-C Attending physician Active Start: June 28, 2025 End: June 28, 2025 Team Status: Active Member Role/Relationship Status Dates Dr. Cachorro Gonzalez MD Primary care physician Active Start: June 29, 2025 Dr. Ratna Bell MD Attending physician Active Start: June 29, 2025 Dr. Ratna Bell MD Referring Provider Active Start: June 29, 2025 INFORMATION SOURCE (unrecogn ized section and content) DATE CREATED AUTHOR 05/05/2025 [facility] DATE CREATED AUTHOR AUTHOR'S AURY LUTHERMAHAD 07/02/2025 [facility] FOR RECORDS PERTAINING TO PATIENTS WHO [...] BE BASED ON THE PRIMARY CLINICAL RECORDS. [employer] provides no warranty or guarantee of the accuracy or completeness of information in this document.
--- NOTE | 2025-08-14 23:25 | CT_ITS ---
PROCEDURE: CT ABD/PELVIS W/WO CONTRAST 08/14/2025 REASON FOR EXAM: RECTAL BLEED TECHNIQUE: Procedure Code: [id number] Modality: CT Procedure: CT ABD/PELVIS W/WO CONTRAST Coronal and Sagittal reconstruction series were provided. CONTRAST: OMNIPAQUE 350 VOLUME: 100 mL One or more dose reduction techniques were used (e.g., Automated exposure control, adjustment of the mA and/or kV according to patient size, use of iterative reconstruction technique. RADIATION DOSE SUMMARY: CTDlvol: 15.47 mGy DLP: 879 mGycm COMPARISON: PET-CT on 08/01/2025. FINDINGS: No residual lymphadenopathy is seen. Significant decrease in the size of the previously described splenic lesion measuring 1.2 cm. Surgical changes of the gastroesophageal junction. Unchanged cholelithiasis without acute cholecystitis. Mild calcified atheromatous plaques of the aorta and iliac arteries. Unchanged scattered calcified splenic granulomas. Interval appearance of mild multifocal thickening of the colon, probably mild colitis. No evidence of perforation or pneumatosis coli. No CT evidence of active bleeding during the time of the exam. Bilateral scattered simple renal cysts are noted with the largest measuring 1.2 cm. Intramural uterine leiomyoma measuring 2.6 cm, unchanged. Moderate multifocal thickening of the bladder, possibly cystitis, unchanged. This can be followed up by ultrasound exam or possibly cystoscopy if clinically warranted. Mild osteopenia. Moderate diffuse spondylosis. The visualized lung bases are unremarkable. Normal liver. Normal extrahepatic biliary system. Normal spleen. Normal pancreas. Normal bilateral adrenal glands. Normal size of the right kidney. There is no right renal mass. There are no right renal calculi. There is no right hydronephrosis. Normal visualized right ureter. Normal size of the left kidney. There is no left renal mass. There are no left renal calculi. There is no left hydronephrosis. Normal visualized left ureter. Normal visualized stomach. Normal small intestine. The appendix is visualized and appears normal. There is no demonstrated peritoneal fluid. Normal abdominal aorta. Normal inferior vena cava. There is no pelvic mass lesion or lymphadenopathy. There is no pelvic fluid. Normal abdominal wall. CT/CT Abd/Pelvis W/WO Contrast IMPRESSION: No residual lymphadenopathy is seen. Significant decrease in the size of the previously described splenic lesion aashish suring 1.2 cm. Surgical changes of the gastroesophageal junction. Unchanged cholelithiasis without acute cholecystitis. Mild calcified atheromatous plaques of the aorta and iliac arteries. Unchanged scattered calcified splenic granulomas. Interval appearance of mild multifocal thickening of the colon, probably mild c olitis. No evidence of perforation or pneumatosis coli. No CT evidence of active bleeding during the time of the exam. Bilateral scattered simple renal cysts are noted with the largest measuring 1.2 cm. Intramural uterine leiomyoma measuring 2.6 cm, unchanged. Moderate multifocal thickening of the bladder, possibly cystitis, unchanged. Th is can be followed up by ultrasound exam or possibly cystoscopy if clinically warranted. Mild osteopenia. Moderate diffuse spondylosis. Reading Location: [facility]
[2025-08-15] VITALS (13 sets, daily range): BP systolic 92–115; BP diastolic 47–75; PULSE 83–95; RESP 12–17; TEMP 36.7–37.2; O2SAT 95–100
--- NOTE | 2025-08-15 00:53 | PCM.HP.STD ---
[facility] - General General Date of Admission: 08/14/25 Date of Service: 08/14/25 Chief Complaint: Rectal bleeding HPI Narrative KARIE PLASCENCIA, is a 80 F with medical history significant for diffuse large B-cell lymphoma stage IVb currently on R-CHOP since May 2025 who presented with couple of episodes of rectal bleeding. She had normal bowel movements until few days ago she started having constipation for 2 days, then when she had a bowel movement initially it was normal but the third episode she still bright red blood coming in addition to the stools. She denies any abdominal pain, fever nausea vomiting or hematemesis. She is on aspirin, no other blood thinners and denies NSAID use. Last colonoscopy was before chemo and she was told everything was okay. Last transfusion for anemia was 3 years ago she said she had similar symptoms to her current symptoms of anemia, but she did not have any GI bleed at that time. She does not know the reason for anemia at that time and her lymphoma diagnosis was during this year. Patient developed generalized weakness and fatigue after she had rectal bleeding this time. In the ED hemoglobin came back 5.6 and platelets 103 both dropping from baseline. Patient will be admitted to hospital for treatment and workup for anemia and rectal bleeding [facility] Medical History Diffuse large b-cell lymphoma, lymph nodes of axilla and upper limb Encounter for antineoplastic chemotherapy and immunotherapy Encounter for education DLBCL (diffuse large B cell lymphoma) Hypothyroidism Wears partial dentures Wears glasses Post-menopausal Non-smoker History of echocardiogram History of stress test History of irregular heartbeat Foot drop, right Anemia Carpal tunnel syndrome Thyroid disease Fatigue Dysuria Hyperlipemia Diabetes Home Medications ?Medication ?Instructions ?Recorded ?Last Taken ?Type calcium carbonate (Calcium 500) 500 mg PO DAILY supple 10/13/17 Unknown History folic acid 0.8 mg capsule 800 mcg PO QDAY supplement 10/13/17 Unknown History levothyroxine 75 mcg capsule 75 mcg PO DAILY thyroid 10/13/17 02/16/19 08:00 History 75 MCG metformin 1,000 mg tablet 1,000 mg PO BID dx 10/13/17 Unknown History multivitamin 1 tab PO QAM supp 10/13/17 Unknown History magnesium oxide 400 mg (241.3 mg 400 mg PO DAILY supplement 02/23/18 Unknown History magnesium) tablet aspirin 81 mg tablet,delayed 81 mg PO DAILY heart health 10/24/19 06/04/25 History release gabapentin 300 mg capsule 300 mg PO QHS PRN pain 05/08/25 Unknown History glimepiride 1 mg tablet 1 mg PO QDAY dx 05/08/25 Unknown History lidocaine-prilocaine 2.5 %-2.5 % 1 applic topical ONCE PRN port 05/25/25 Unknown Rx topical cream access 30 days #30 grams prochlorperazine maleate 10 mg 10 mg PO Q6H PRN nausea and 05/25/25 Unknown Rx tablet vomiting #30 tabs acyclovir 400 mg tablet 400 mg PO BID anti #60 tabs 07/19/25 Unknown Rx Allergy/AdvReac Type Severity Reaction Status Date / Time No Known Allergies Allergy Verified 08/14/25 19:43 Family History Mother Uterine cancer Sister Heart disease Thyroid disorder Surgical History History of cardiac catheterization Hx of colonoscopy History of esophagogastroduodenoscopy (EGD) History of carpal tunnel release of both wrists H/O gastric bypass Social History Smoking Status: Never smoker second hand exposure: No alcohol intake: never substance use type: does not use caffeine: No what type of physical activity do you participate in: walking frequency: 3-4 times per week seatbelt use: always ROS Constitutional Constitutional: Reports fatigue; Denies fever(s) or poor appetite ENT HEENT: Reports none Cardiovascular Cardiovascular: Denies chest pain or dyspnea Respiratory/Chest Respiratory/Chest: Denies cough or wheezing Gastrointestinal Gastrointestinal: Reports change in bowel habits and hematochezia; Denies abdominal pain, nausea or vomiting Genitourinary Genitourinary: Denies change in urinary stream or dysuria Musculoskeletal Musculoskeletal: Denies arthralgias or myalgias Integumentary Integumentary: Reports none Neurologic Neurologic: Denies abnormal speech, dizziness, focal weakness, loss of vision or numbness Hematologic/Lymphatic Hematologic/Lymphatic: Reports none Patient's Goals Of Care . What would you like to achieve or improve as a result of your hospital stay?: Correct anemia and investigate rectal bleeding etiology Vital Signs Vital Signs Vital Signs: 08/14/25 19:42 08/14/25 20:37 08/14/25 20:45 Temperature 97.5 F L Temperature Source Oral Pulse Rate 99 81 Respiratory Rate 22 H 15 Blood Pressure 103/56 L 90/64 Blood Pressure Mean 71 72 Blood Pressure Source Blood Pressure Position Blood Pressure Location Pulse Ox 100 98 98 Oxygen Delivery Method Room Air Room Air 08/14/25 21:00 08/14/25 21:00 08/14/25 21:15 Temperature Temperature Source Pulse Rate 93 90 92 Respiratory Rate 14 14 16 Blood Pressure 109/46 L 109/46 L 99/48 L Blood Pressure Mean 67 66 64 Blood Pressure Source Blood Pressure Position Blood Pressure Location Pulse Ox 100 100 100 Oxygen Delivery Method 08/14/25 21:24 08/14/25 21:30 08/14/25 21:45 Temperature 98.3 F Temperature Source Pulse Rate 93 94 95 Respiratory Rate 14 11 L 11 L Blood Pressure 109/46 L 99/54 L 105/57 L Blood Pressure Mean 67 67 71 Blood Pressure Source Blood Pressure Position Blood Pressure Location Pulse Ox 100 Oxygen Delivery Method 08/14/25 22:00 08/14/25 22:15 08/14/25 22:21 Temperature Temperature Source Pulse Rate 93 97 109 H Respiratory Rate 18 14 20 H Blood Pressure 98/53 L 110/42 L 95/50 L Blood Pressure Mean 67 62 64 Blood Pressure Source Blood Pressure Position Blood Pressure Location Pulse Ox 97 Oxygen Delivery Method 08/14/25 22:30 08/14/25 22:30 08/14/25 22:32 Temperature 98.1 F Temperature Source Oral Pulse Rate 91 89 90 Respiratory Rate 13 14 13 Blood Pressure 95/50 L 89/55 L Blood Pressure Mean 65 65 Blood Pressure Source Monitor Blood Pressure Position Semi-Fowlers Blood Pressure Location Left Arm Pulse Ox 100 100 100 Oxygen Delivery Method 08/14/25 22:45 08/14/25 22:45 08/14/25 23:00 Temperature 98.4 F Temperature Source Oral Pulse Rate 89 89 89 Respiratory Rate 15 15 14 Blood Pressure 97/51 L 97/51 L 103/54 L Blood Pressure Mean 66 66 69 Blood Pressure Source Monitor Blood Pressure Position Semi-Fowlers Blood Pressure Location Left Arm Pulse Ox 100 100 100 Oxygen Delivery Method Room Air 08/14/25 23:15 08/14/25 23:15 08/14/25 23:15 Temperature Temperature Source Pulse Rate 95 Respiratory Rate 16 Blood Pressure 121/53 H 121/53 H 121/53 H Blood Pressure Mean 73 73 73 Blood Pressure Source Blood Pressure Position Blood Pressure Location Pulse Ox 100 Oxygen Delivery Method 08/14/25 23:30 08/14/25 23:45 Temperature 99.2 F H Temperature Source Oral Pulse Rate 100 102 H Respiratory Rate 20 H 14 Blood Pressure 116/61 111/63 Blood Pressure Mean 77 79 Blood Pressure Source Monitor Blood Pressure Position Semi-Fowlers Blood Pressure Location Left Arm Pulse Ox 100 100 Oxygen Delivery Method Room Air Weight Weight: 71.7 kg Body Mass Index (BMI) 26.3 Physical Exam Narrative Appears pale Const alert and oriented x3 HEENT normocephalic and head/scalp atraumatic Eyes EOMs intact bilaterally; Negative for no scleral icterus Neck supple Resp normal respiratory effort and clear to auscultation bilaterally Cardio regular rate and regular rhythm; Negative for no murmurs GI normal to inspection, nondistended, normoactive bowel sounds; Negative for non-tender no CVA tenderness Extremity no joint enlargement and no pedal edema Skin no rashes or lesions noted Neuro oriented x3 and moves all extremities Results Lab / Micro Data 08/14/25 20:40 08/14/25 20:40 Labs: Laboratory Results - last 24 hr 08/14/25 20:35: Blood Type O NEGATIVE, Antibody Screen NEGATIVE, Crossmatch See Detail 08/14/25 20:40: WBC 9.2, RBC 1.80 L, Hgb 5.6 L*, Hct 16.9 L, MCV 93.9, MCH 31.1, MCHC 33.1, RDW Std Deviation 66.3 H, RDW Coeff of Mesfin 19.3 H, Plt Count 103 L, MPV 10.7, Immature Gran % (Auto) Not Reportable, Neut % (Auto) Not Reportable, Lymph % (Auto) Not Reportable, [place] % (Auto) Not Reportable, Eos % (Auto) Not Reportable, Baso % (Auto) Not Reportable, Absolute Neuts (auto) 7.4, Absolute Lymphs (auto) 1.01, Total Counted 100, Neutrophils % (Manual) 80 H, Band Neutrophils % 1, Lymphocytes % (Manual) 11 L, Monocytes % (Manual) 2, Eosinophils % (Manual) 2, Metamyelocytes % 3 H, Promyelocytes % 1 H, Nucleated RBC % Not Reportable, Diff Path Review May foll, Platelet Estimate SLT DEC, Anisocytosis 2+, Microcytosis 1+, Macrocytosis 1+, Ovalocytes RARE, John Cells RARE, Sodium 132 L, Potassium 3.9, Chloride 98, Carbon Dioxide 21.9, Anion Gap 12, BUN 31 H, Creatinine 0.49 L, Estim Creat Clear Calc 54.89, Est GFR (MDRD) Non-Af 95, BUN/Creatinine Ratio 63.2 H, Glucose 224 H, Calcium 8.6, Iron 102, Ferritin 366, Total Bilirubin 0.29, Direct Bilirubin 0.13, AST 12, ALT 14, Alkaline Phosphatase 73, Lactate Dehydrogenase 195, Total Protein 5.0 L, Albumin 3.5, Globulin 1.5 L, Lipase 14 Assessment & Plan Assessment/Plan (1) Rectal bleeding: (2) Acute blood loss anemia: (3) Thrombocytopenia: (4) Diffuse large b-cell lymphoma, lymph nodes of axilla and upper limb: PLAN: Plan Admission to PCU Rectal bleeding: GI consult, n.p.o., hold aspirin. Transfuse PRBC to target hemoglobin 7 above. 3 units were ordered will transfuse 1 at a time and reassess after each. Patient is not in shock, no active bleeding when seen, no coronary ischemia. CT abdomen/pelvis with IV contrast. No need for CTA as patient was not active bleeding Anemia/thrombocytopenia: Workup for iron deficiency and hemolysis is sent. A peripheral smear was unofficially reviewed by the lab personnel and confirmed absence of schistocytes (bite cells, helmets etc.) No indication for platelet transfusion at the moment. She has been tolerating her chemo without cytopenias before Lymphoma: On R-CHOP since May, has been well-tolerated. No tumor lysis or grade 3 or 4 toxicities. Recent PET scan showed complete resolution of uptake previously identified hypermetabolic uptake in the mediastinal and right axillary lymph nodes and diffuse mild hypermetabolic uptake throughout the skeleton in proximal lung bones likely reactive. Diabetes: Start sliding scale insulin Charges/Coding Visit Charges Inpatient E&M: 76182 Init Hosp L3
[2025-08-15 02:17] LABS: Hematocrit 17.4 % (37-47); Mean Corp Hgb Conc 33.3 g/dL (32-36); Mean Corpuscular Volume 91.6 fL (81-99); Mean Platelet Vol. 10.2 fl (6.2-12.0); POSITIVE COUNT YES; POSITIVE DIFFERENTIAL YES; POSITIVE MORPHOLOGY YES; Platelet Count 88 K/mm3 (150-450); RBC Distribution Width CV 18.2 % (11.6-14.6); RBC Distribution Width SD 60.5 fl (35.1-43.9); Red Blood Count 1.90 M/mm3 (4.2-5.4); White Blood Count 5.0 K/mm3 (4.4-11.0)
[2025-08-15 02:25] LABS: Differential Indicated MANUAL DIFF; Hemoglobin 5.8 g/dL (12.0-15.0)
[2025-08-15 02:51] LABS: Total Cells Counted 100 (MANUAL DIFF)
[2025-08-15 02:52] LABS: Neutrophil-Segmented 89 % (47-70)
[2025-08-15 02:53] LABS: Anisocytosis 2+; Burr Cells RARE
--- NOTE | 2025-08-15 07:43 | PN.HOSP_ITS ---
Reason for Visit Chief Complaint: Rectal bleeding Subjective Subjective Feels well. No further bleeding. Yesterday was on the toilet, strained and had copious blood in the stool. [place] weak afterwards. Just finished her transfusion. Objective Data Objective Data Vital Signs: Vital Signs Temp Pulse Resp BP Pulse Ox O2 Del Method 36.8 C 88 12 98/75 100 Room Air 08/15/25 06:38 08/15/25 06:38 08/15/25 06:38 08/15/25 06:38 08/15/25 06:38 08/15/25 06:38 Oxygen Delivery Method Room Air Weight: 71.7 kg Body Mass Index (BMI) 26.3 Intake & Output: Intake and Output for Last 24 Hours 08/13/25 08/14/25 08/15/25 23:59 23:59 23:59 Intake Total 91.67 / 91.67 800 / 800 Balance 91.67 / 91.67 800 / 800 Lab / Micro Data 08/15/25 02:05 08/15/25 02:05 Labs: Laboratory Results - last 24 hr 08/14/25 20:35: Blood Type O NEGATIVE, Antibody Screen NEGATIVE, Crossmatch See Detail 08/14/25 20:40: WBC 9.2, RBC 1.80 L, Hgb 5.6 L*, Hct 16.9 L, MCV 93.9, MCH 31.1, MCHC 33.1, RDW Std Deviation 66.3 H, RDW Coeff of Mesfin 19.3 H, Plt Count 103 L, MPV 10.7, Immature Gran % (Auto) Not Reportable, Neut % (Auto) Not Reportable, Lymph % (Auto) Not Reportable, [place] % (Auto) Not Reportable, Eos % (Auto) Not Reportable, Baso % (Auto) Not Reportable, Absolute Neuts (auto) 7.4, Absolute Lymphs (auto) 1.01, Total Counted 100, Neutrophils % (Manual) 80 H, Band Neutrophils % 1, Lymphocytes % (Manual) 11 L, Monocytes % (Manual) 2, Eosinophils % (Manual) 2, Metamyelocytes % 3 H, Promyelocytes % 1 H, Nucleated RBC % Not Reportable, Diff Path Review May foll, Platelet Estimate SLT DEC, Anisocytosis 2+, Microcytosis 1+, Macrocytosis 1+, Ovalocytes RARE, [place] Cells RARE, Sodium 132 L, Potassium 3.9, Chloride 98, Carbon Dioxide 21.9, Anion Gap 12, BUN 31 H, Creatinine 0.49 L, Estim Creat Clear Calc 54.89, Est GFR (MDRD) Non-Af 95, BUN/Creatinine Ratio 63.2 H, Glucose 224 H, Calcium 8.6, Iron 102, Ferritin 366, Total Bilirubin 0.29, Direct Bilirubin 0.13, AST 12, ALT 14, Alkaline Phosphatase 73, Lactate Dehydrogenase 195, Total Protein 5.0 L, Albumin 3.5, Globulin 1.5 L, Lipase 14 08/15/25 02:05: WBC 5.0, RBC 1.90 L, Hgb 5.8 L*, Hct 17.4 L, MCV 91.6, MCH 30.5, MCHC 33.3, RDW Std Deviation 60.5 H, RDW Coeff of Mesfin 18.2 H, Plt Count 88 L, MPV 10.2, Neut % (Auto) Not Reportable, Absolute Neuts (auto) 4.5, Absolute Lymphs (auto) 0.50 L, Total Counted 100, Neutrophils % (Manual) 89 H, L ymphocytes % (Manual) 10 L, Metamyelocytes % 1, Blast Cells % Not Reportable, Platelet Estimate MOD DEC, Anisocytosis 2+, [place] Cells RARE 08/15/25 05:52: POC Glucose 136 H Radiography Diagnostic Testing: Radiology Impression Abdomen/Pelvis CT 08/14/25 23:25 IMPRESSION: No residual lymphadenopathy is seen. Significant decrease in the size of the previously described splenic lesion measuring 1.2 cm. Surgical changes of the gastroesophageal junction. Unchanged cholelithiasis without acute cholecystitis. Mild calcified atheromatous plaques of the aorta and iliac arteries. Unchanged scattered calcified splenic granulomas. Interval appearance of mild multifocal thickening of the colon, probably mild colitis. No evidence of perforation or pneumatosis coli. No CT evidence of active bleeding during the time of the exam. Bilateral scattered simple renal cysts are noted with the largest measuring 1.2 cm. Intramural uterine leiomyoma measuring 2.6 cm, unchanged. Moderate multifocal thickening of the bladder, possibly cystitis, unchanged. This can be followed up by ultrasound exam or possibly cystoscopy if clinically warranted. Mild osteopenia. Moderate diffuse spondylosis. Reading Location: [place] [address] Physical Exam Const alert and no apparent distress Resp normal respiratory effort, no retractions, no use of accessory muscles and clear to auscultation bilaterally Cardio regular rate, regular rhythm, S1 normal heart sound and S2 normal heart sound GI normal to inspection, nondistended, normoactive bowel sounds, soft to palpation, non-tender and non-distended Extremity normal to inspection Neuro Sensorium / Orientation: awake and alert Assessment & Plan Assessment/Plan (1) Rectal bleeding: (2) Acute blood loss anemia: (3) Thrombocytopenia: (4) Diffuse large b-cell lymphoma, lymph nodes of axilla and upper limb: PLAN: Plan GI bleed * Suspect lower given lilly blood and no abdominal pain. * GI consult, n.p.o., hold aspirin. * Consider CTA AP if recurrent ABLA * Hg 10.6 on 08/09, was 5.6 on . * Transfused 3 units PRBCs. * continue to monitor * iron studies WNL Thrombocytopenia * was 308k on 08/09 and down to 88 on the . * I suspect consumptive given the severe ABLA and GI bleed. * continue to monitor. Chronic medical conditions: * Lymphoma: On R-CHOP since May, has been well-tolerated. No tumor lysis or grade 3 or 4 toxicities. Recent PET scan showed complete resolution of uptake previously identified hypermetabolic uptake in the mediastinal and right axillary lymph nodes and diffuse mild hypermetabolic uptake throughout the skeleton in proximal lung bones likely reactive. * DM2: Start sliding scale insulin VTE prophylaxis: SCDs. Charges/Coding Visit Charges Inpatient E&M: 09798 Subs Hosp L2
[2025-08-15 08:16] LABS: Anion Gap 9 (7-18); BUN 28 mg/dL (4-19); BUN/Creat Ratio 67.1 RATIO (10-20); Calcium,Total 8.3 mg/dL (7.6-11.0); Carbon Dioxide 23.6 mmol/L (20.0-29.0); Chloride 104 mmol/L (96-106); Estimated Creatinine Clearance 54.75 ml/min (50-250); Glucose 137 mg/dL (70-99); Potassium 4.1 mmol/L (3.5-5.1)
--- NOTE | 2025-08-15 13:24 | CASEMGMT ---
TIMMY WEBER Assessment Face to Face with patient for initial transition planning/care coordination assessment. TIMMY WEBER introduced self and role at [facility], pt voices understanding. Pt is A&Ox4 and is resting comfortably in bed and is calm. Pt's at the bedside. Care providers, pharmacy, and demographics verified. Admitting dx: Anemia LACE Strata: 2 PCP: Cachorro Whitney Specialists: [facility] (Oncology) Preferred Pharmacy: [facility] Insurance: [facility] Prescription Benefit: Yes LNOK: Tyrel (H) Living Arrangements: Pt lives with her in a single story home with 2 steps to enter ADLs/IADLs: Indep. 6-Click score is 22. Transportation: Self, brother DME: Functioning [employer] with sufficient testing supplies including lancets, test strips, and EtOH swabs. BP Machine. ? HHC/SNF: Denies hx of or needs Pt?s goal: Home Plan: Home with pt's . Pt plans to follow up with her oncology team on the for her next round of chemo. Pt states that she feels safe with this plan and denies any further questions, concerns, or needs at this time. Ibis Norris RN, CM
[2025-08-15 13:37] LABS: Hematocrit 24.1 % (37-47); Hemoglobin 8.2 g/dL (12.0-15.0); Immature Granulocytes Count 0.050 X10^3/uL (0.0-0.0); Mean Corp Hgb Conc 34.0 g/dL (32-36); Mean Corpuscular Volume 89.6 fL (81-99); Mean Platelet Vol. 10.3 fl (6.2-12.0); NRBC Flagged by Analyzer 0 % (0-5); POSITIVE COUNT YES; POSITIVE DIFFERENTIAL YES; POSITIVE MORPHOLOGY YES; Platelet Count 80 K/mm3 (150-450); RBC Distribution Width CV 17.2 % (11.6-14.6); RBC Distribution Width SD 55.2 fl (35.1-43.9); Red Blood Count 2.69 M/mm3 (4.2-5.4); White Blood Count 3.4 K/mm3 (4.4-11.0)
[2025-08-15 14:07] LABS: Differential Indicated SCAN CRITERIA MET
[2025-08-15 14:09] LABS: Dohle Bodies 2+; Toxic Granulation 2+
--- NOTE | 2025-08-15 15:05 | DS.PCM_ITS ---
Providers Date of Admission: 08/14/25 Primary Care Physician: Dr. Cachorro Whitney MD Consultations 08/15/25 01:01 Consult: Gastroenterology Routine Consulting Provider: [facility] Reason for Consult: Rectal bleeding EMERGENT Consult: No MD Notified: Yes Date Notified: 08/15/25 Time Notified: 07:46 Method of Notification: Text Reason For Visit: ANEMIA REQUIRING TRANSFUSION Diagnosis Discharge Diagnosis (1) Rectal bleeding: Status: Acute Code(s): K62.5 - Hemorrhage of anus and rectum (2) Acute blood loss anemia: Status: Acute Code(s): D62 - Acute posthemorrhagic anemia (3) Thrombocytopenia: Status: Acute Code(s): D69.6 - Thrombocytopenia, unspecified (4) Diffuse large b-cell lymphoma, 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 * GI consult, n.p.o., hold aspirin. * Consider CTA AP if recurrent ABLA * Hg 10.6 on 08/09, was 5.6 on . Went up to 8.2 after transfusions. * Transfused 3 units PRBCs. * continue to monitor * iron studies WNL Thrombocytopenia * was 308k on 08/09 and down to 88 on the . * I suspect consumptive given the severe ABLA and GI bleed. * continue to monitor. Chronic medical conditions: * Lymphoma: On R-CHOP since May, has been well-tolerated. No tumor lysis or grade 3 or 4 toxicities. Recent PET scan showed complete resolution of uptake previously identified hypermetabolic uptake in the mediastinal and right axillary lymph nodes and diffuse mild hypermetabolic uptake throughout the skeleton in proximal lung bones likely reactive. * DM2: Start sliding scale insulin VTE prophylaxis: SCDs. Medications at Discharge Home Medications calcium carbonate (Calcium 500) 500 mg PO DAILY supple 10/13/17 folic acid 0.8 mg capsule 800 mcg PO QDAY supplement 10/13/17 levothyroxine 75 mcg capsule 75 mcg PO DAILY thyroid 10/13/17 metformin 1,000 mg tablet 1,000 mg PO BID dx 10/13/17 Held on 08/15/25. Instructions: Resume on 08/19/25. multivitamin 1 tab PO QAM supp 10/13/17 magnesium oxide 400 mg (241.3 mg magnesium) tablet 400 mg PO DAILY supplement 10/16/17 aspirin 81 mg tablet,delayed release 81 mg PO DAILY [facility] 10/24/19 Held on 08/15/25. Instructions: Resume on 08/19/25. gabapentin 300 mg capsule 300 mg PO QHS PRN pain 05/08/25 glimepiride 1 mg tablet 1 mg PO QDAY dx 05/08/25 lidocaine-prilocaine 2.5 %-2.5 % topical cream 1 applic topical ONCE PRN port access 30 days #30 grams 05/25/25 prochlorperazine maleate 10 mg tablet 10 mg PO Q6H PRN nausea and vomiting #30 tabs 05/25/25 acyclovir 400 mg tablet 400 mg PO BID anti #60 tabs 07/19/25 Hospital Course Operations None Procedures None Summary of Care Provided Hospital Course: Greater than 35 minutes spent on discharge This is an 80-year-old female that was on the toilet straining and then noted lilly blood in the toilet bowl. Patient felt dizzy and lightheaded afterwards. Patient presented here with hemoglobin of 5.6. She was transfused 3 units her hemoglobin is 8.2. Since being here she has had no further bleeding. Hemoglobin is now 8.2. Discussed with the patient about staying here versus going home. Plan is she stayed here she can see gastroenterology we can observe her further but I told her I suspected this may have been just a transient loss due to some acute issue such as diverticulosis that may not recur again. Patient thought about it for a while and then would prefer to go home. Advised patient if she does have recurrent bleeding to return to the emergency room. Patient also had thrombocytopenia which I believe is consumptive due to the acute blood loss anemia and GI bleed. Weight / BMI Weight Weight: 71.7 kg Body Mass Index (BMI) 26.3 ABG / Lab / Microbiology Data 08/15/25 13:25 08/15/25 02:05 Laboratory: Laboratory Results - last 24 hr 08/14/25 20:35: Blood Type O NEGATIVE, Antibody Screen NEGATIVE, Crossmatch See Detail 08/14/25 20:40: WBC 9.2, RBC 1.80 L, Hgb 5.6 L*, Hct 16.9 L, MCV 93.9, MCH 31.1, MCHC 33.1, RDW Std Deviation 66.3 H, RDW Coeff of Mesfin 19.3 H, Plt Count 103 L, MPV 10.7, Immature Gran % (Auto) Not Reportable, Neut % (Auto) Not Reportable, Lymph % (Auto) Not Reportable, [place] % (Auto) Not Reportable, Eos % (Auto) Not Reportable, Baso % (Auto) Not Reportable, Absolute Neuts (auto) 7.4, Absolute Lymphs (auto) 1.01, Total Counted 100, Neutrophils % (Manual) 80 H, Band Neutrophils % 1, Lymphocytes % (Manual) 11 L, Monocytes % (Manual) 2, Eosinophils % (Manual) 2, Metamyelocytes % 3 H, Promyelocytes % 1 H, Nucleated RBC % Not Reportable, Diff Path Review May , Platelet Estimate SLT DEC, Anisocytosis 2+, Microcytosis 1+, Macrocytosis 1+, Ovalocytes RARE, [place] Cells RARE, Sodium 132 L, Potassium 3.9, Chloride 98, Carbon Dioxide 21.9, Anion Gap 12, BUN 31 H, Creatinine 0.49 L, Estim Creat Clear Calc 54.89, Est GFR (MDRD) Non-Af 95, BUN/Creatinine Ratio 63.2 H, Glucose 224 H, Calcium 8.6, Iron 102, Ferritin 366, Total Bilirubin 0.29, Direct Bilirubin 0.13, AST 12, ALT 14, Alkaline Phosphatase 73, Lactate Dehydrogenase 195, Total Protein 5.0 L, Albumin 3.5, Globulin 1.5 L, Lipase 14 08/15/25 02:05: WBC 5.0, RBC 1.90 L, Hgb 5.8 L*, Hct 17.4 L, MCV 91.6, MCH 30.5, MCHC 33.3, RDW Std Deviation 60.5 H, RDW Coeff of Mesfin 18.2 H, Plt Count 88 L, MPV 10.2, Neut % (Auto) Not Reportable, Absolute Neuts (auto) 4.5, Absolute Lymphs (auto) 0.50 L, Total Counted 100, Neutrophils % (Manual) 89 H, L ymphocytes % (Manual) 10 L, Metamyelocytes % 1, Blast Cells % Not Reportable, Platelet Estimate MOD DEC, Anisocytosis 2+, John Cells RARE, Sodium 137, Potassium 4.1, Chloride 104, Carbon Dioxide 23.6, Anion Gap 9, BUN 28 H, C reatinine 0.42 L, Estim Creat Clear Calc 54.75, Est GFR (MDRD) Non-Af 98, B UN/Creatinine Ratio 67.1 H, Glucose 137 H, Calcium 8.3 08/15/25 05:52: POC Glucose 136 H 08/15/25 11:37: POC Glucose 143 H 08/15/25 13:25: WBC 3.4 L, RBC 2.69 L, Hgb 8.2 L, Hct 24.1 L, MCV 89.6, MCH 30.5, MCHC 34.0, RDW Std Deviation 55.2 H, RDW Coeff of Mesfin 17.2 H, Plt Count 80 L, MPV 10.3, Immature Gran % (Auto) 1.500 H, Neut % (Auto) 81.5 H, Lymph % (Auto) 9.1 L, [place] % (Auto) 2.3, Eos % (Auto) 3.8, Baso % (Auto) 1.8 H, Absolute Neuts (auto) 2.8, Absolute Lymphs (auto) 0.31 L, Nucleated RBC % 0, Toxic Granulation 2+, Dohle Bodies 2+ Radiography Diagnostic Testing: Radiology Impression Abdomen/Pelvis CT 08/14/25 23:25 IMPRESSION: No residual lymphadenopathy is seen. Significant decrease in the size of the previously described splenic lesion measuring 1.2 cm. Surgical changes of the gastroesophageal junction. Unchanged cholelithiasis without acute cholecystitis. Mild calcified atheromatous plaques of the aorta and iliac arteries. Unchanged scattered calcified splenic granulomas. Interval appearance of mild multifocal thickening of the colon, probably mild colitis. No evidence of perforation or pneumatosis coli. No CT evidence of active bleeding during the time of the exam. Bilateral scattered simple renal cysts are noted with the largest measuring 1.2 cm. Intramural uterine leiomyoma measuring 2.6 cm, unchanged. Moderate multifocal thickening of the bladder, possibly cystitis, unchanged. This can be followed up by ultrasound exam or possibly cystoscopy if clinically warranted. Mild osteopenia. Moderate diffuse spondylosis. [facility] Inst[facility] DC O2, CPAP, BIPAP Needs Home O2 Discharge instructions: No Meaningful Use Info Meaningful Use Meaningful Use Diagnoses (Choose all that apply): None applicable Discharge Plan Admission Admit Date/Time: 08/14/25 22:17 Primary Reason for Your Visit: GI bleed Attending Provider: Rebel Courtney Primary Care Provider: Cachorro Whitney Consulting Providers: Sasha Lay; Cuba Friedman; Russell Bee; Karen Baron; Dotty Longoria; Brianna Jean Instructions Additional Instructions / Restrictions: As you know you had intestinal bleeding. This bleeding may have been due to an internal hemorrhoid or diverticulosis which caused loose so much blood that you required a transfusion. Many times, if that is the cause of the bleeding, these may not recur but if it does recur, return to the emergency room. Your blood count did improve with transfusions but I would like for you to have some lab work in the next coming week to make sure that that is remaining stable. If you do have any recurrent issues, notify your physician or return to the emergency room. I will have you hold your aspirin for 4 days just because of the bleeding. The aspirin did not cause your bleeding but did contribute to severity to a certain degree. Discharge Orders/Prescriptions Prescriptions: Continued levothyroxine 75 mcg capsule 75 mcg PO DAILY calcium carbonate [Calcium 500] 500 mg calcium (1,250 mg) tablet 500 mg PO DAILY folic acid 0.8 mg capsule 800 mcg PO QDAY multivitamin tablet 1 tab PO QAM magnesium oxide 400 mg tablet 400 mg PO DAILY glimepiride 1 mg tablet 1 mg PO QDAY gabapentin 300 mg capsule 300 mg PO QHS PRN (Reason: pain) prochlorperazine maleate 10 mg tablet 10 mg PO Q6H PRN (Reason: nausea and vomiting) Qty: 30 2RF lidocaine-prilocaine 2.5-2.5 % cream 1 applic topical ONCE PRN (Reason: port access) 30 Days Qty: 30 2RF acyclovir 400 mg tablet 400 mg PO BID Qty: 60 0RF Held metformin 1,000 mg tablet 1,000 mg PO BID Hold Instructions: Resume on 08/19/25. aspirin 81 MG tablet,delayed release (DR/EC) 81 mg PO DAILY Hold Instructions: Resume on 08/19/25. Patient Comments: follow instructions about stopping Referrals / Follow Up: [facility] [Provider Group] - Within 1 Month Cachorro Whitney MD [Primary Care Provider, Family Practice] - Within 2 Weeks Disposition Disposition (needs filled in before D/C Order can be placed): Home, Self Care Charges/Coding Visit Charges Inpatient E&M: 51128 Disch Hosp >30min
--- NOTE | 2025-08-15 15:19 | PHA.DC.MR.R ---
Pharmacy [facility]con[facility] has performed discharge medication reconciliation for this patient. The patient's discharge medication list was reviewed for discrepancies and discrepancies were resolved. Medications at Discharge Home Medications calcium carbonate (Calcium 500) 500 mg PO DAILY supple 10/13/17 folic acid 0.8 mg capsule 800 mcg PO QDAY supplement 10/13/17 levothyroxine 75 mcg capsule 75 mcg PO DAILY thyroid 10/13/17 metformin 1,000 mg tablet 1,000 mg PO BID dx 10/13/17 Held on 08/15/25. Instructions: Resume on 08/19/25. multivitamin 1 tab PO QAM supp 10/13/17 magnesium oxide 400 mg (241.3 mg magnesium) tablet 400 mg PO DAILY supplement 10/16/17 aspirin 81 mg tablet,delayed release 81 mg PO DAILY [facility] 10/24/19 Held on 08/15/25. Instructions: Resume on 08/19/25. gabapentin 300 mg capsule 300 mg PO QHS PRN pain 05/08/25 glimepiride 1 mg tablet 1 mg PO QDAY dx 05/08/25 lidocaine-prilocaine 2.5 %-2.5 % topical cream 1 applic topical ONCE PRN port access 30 days #30 grams 05/25/25 prochlorperazine maleate 10 mg tablet 10 mg PO Q6H PRN nausea and vomiting #30 tabs 05/25/25 acyclovir 400 mg tablet 400 mg PO BID anti #60 tabs 07/19/25
== END 2025-08-15 17:06 | disposition home or self-care (01) | DRG 378 ==
LOC: ED 21:56 → PCU 22:21
PROVIDERS: Admitting Provider Internal Medicine; Emergency Provider Emergency Medicine; PCP Family Medicine
DX: K62.5 Hemorrhage of anus and rectum (principal); C83.34 Diffuse large B-cell lymphoma, lymph nodes of axilla and upper limb; D62 Acute posthemorrhagic anemia; D69.6 Thrombocytopenia, unspecified; E11.9 Type 2 diabetes mellitus without complications; E03.9 Hypothyroidism, unspecified; E78.5 Hyperlipidemia, unspecified; Z79.890 Hormone replacement therapy; Z79.84 Long term (current) use of oral hypoglycemic drugs; Z79.82 Long term (current) use of aspirin; Z92.21 Personal history of antineoplastic chemotherapy
CPT/HCPCS: 36415; 74178; 80048; 80076; 82728; 82962; 83010; 83540; 83615; 83690; 85025; 86850; 86900; 86901; 93005; 97802; 99285; P9016; Q9967; A4216